=== PATIENT | female | born 1990 | race Caucasian/White ===

== ENCOUNTER 2016-09-12 10:49 | Emergency (ER) | payer SELFPAY ==
[~2016-09-12] VITALS: Ht 177.8 cm; Wt 100.7 kg
[~2016-09-12 10:49] MED LIST: PAXI30TA11 PO; TRAZ50TA4 PO
[2016-09-12 11:01] VITALS: BP 128/66
[2016-09-12] MEDS ORDERED: GUAIDM5UD PO (11:13)
== END 2016-09-12 11:20 | disposition home or self-care (01) ==
LOC: M ED 11:17
DX: J00 Acute nasopharyngitis [common cold] (principal); L70.9 Acne, unspecified; Z20.9 Contact with and (suspected) exposure to unspecified communicable disease; F17.200 Nicotine dependence, unspecified, uncomplicated; J30.2 Other seasonal allergic rhinitis

== ENCOUNTER → 2016-09-21 | Outpatient (CLI) | payer SELFPAY ==
[~2016-09-21] MED LIST changes: +GUAIDM5UD PO; +ISOVUE-370 76% 100ML VIAL (Q9967) As Ordered ONE
--- NOTE | 2016-09-21 13:39 | REP ---
Clinical: Infertility. Technique: Hysterosalpingogram performed in conjunction with STUDENT ACCOUNTS COORDINATOR. Findings: Real time fluoroscopic evaluation demonstrates normal contour and appearance to the uterus and intramural portions of the bilateral fallopian tubes. There is considerable distension and dilatation to the ampullary portions of the bilateral fallopian tubes with complete obstruction at the fimbria and no evidence for spillage / extravasation. Total fluoroscopic time 1 minute 31 seconds. Impression: Occlusion of the bilateral fallopian tubes with moderate to significant bilateral hydrosalpinx. Normal appearance and contour to the uterus. Signed by Abiodun Shook MD 09/21/2016 01:30 P
== END ==
LOC: M RADPRO 11:47
PROVIDERS: ATTEND Obstetrics & Gynecology
DX: N97.8 Female infertility of other origin (principal)
CPT/HCPCS: 58340; 74740; Q9967

== ENCOUNTER → 2016-12-11 | Day surgery (SDC) | payer OTHER ==
[~2016-12-11] VITALS: Ht 177.8 cm; Wt 99.8 kg
[~2016-12-11] MED LIST changes: +BUPIVACAINE HCL 0.25% 30 ML VIAL As Ordered ONE; +DESFLURANE 240 ML INHALANT As Ordered ONE; +GLYCOPYRROLATE INJ 0.2 MG/ML 2 ML VIAL As Ordered ONE; +HYDROmorphone HCL 1 MG/ML SYRINGE (J1170) IV PRN; +HYDROmorphone HCL 2 MG/ML 1ML VIAL (J1170) As Ordered ONE; +IBUP600T26 PO; -ISOVUE-370 76% 100ML VIAL (Q9967) As Ordered ONE; +KETOROLAC 60 MG/2 ML VIAL (J1885) As Ordered ONE; +LIDOCAINE 2% INJ 100 MG/5 ML SDV (FOR ANES.) As Ordered ONE; +LR 1,000 ML IV ONE; +LR 1,000 ML IV SCH; +METHYLENE BLUE 0.5% (5MG/ML) 10 ML AMP (PROVAYBLUE)(Q9968 PER 1MG) As Ordered ONE; +MIDAZOLAM INJ 2 MG/2 ML VIAL (J2250) As Ordered ONE; +NEOSTIGMINE 1MG/ML 5 ML SYRINGE (J2710) As Ordered ONE; +ONDANSETRON 4MG/2ML VIAL (J2405) As Ordered ONE; +ONDANSETRON 4MG/2ML VIAL (J2405) IV PRN; +OXYC1TAB23 PO; +PROPOFOL 200 MG/20 ML VIAL As Ordered ONE; +ROCURONIUM BROMIDE 50 MG/5 ML VIAL As Ordered ONE; +ZOFR4TAB3 PO; +dexameTHASONE 4 MG/ML 1ML VIAL (J1100) As Ordered ONE; +diphenhydrAMINE INJ 50MG/ML VIAL (J1200) IV ONE; +fentaNYL 100 MCG/2 ML INJECTION (J3010) As Ordered ONE
[2016-12-11 07:28] LABS: MEAN CORPUSCULAR HEMOGLOBIN 30.3 pg (27.0-33.0); MEAN CORPUSCULAR HGB CONC 33.1 g/dl (32.0-36.5); MEAN CORPUSCULAR VOLUME 91.6 fl (80.0-96.0); RED CELL DISTRIBUTION WIDTH 14.6 % (11.5-14.5); WHITE BLOOD COUNT 6.6 K/mm3 (4.0-10.0)
[2016-12-11 07:46] LABS: CONTROL LINE HCG INT CTR LINE PRESENT
[2016-12-11] MEDS: fentaNYL 100 MCG/2 ML INJECTION (J3010) IV PRN ×2 (11:01→11:16)
[2016-12-11] MEDS: PERCOCET 5MG/325MG TAB PO PRN ×2 (11:02→12:31)
[2016-12-11 12:50] VITALS: BP 110/53
--- NOTE | 2016-12-11 23:24 | RO ---
DATE OF PROCEDURE: 12/11/2016 PREOPERATIVE DIAGNOSIS: 1. Secondary infertility, tubal factor. 2. Bilateral hydrosalpinx. POSTOPERATIVE DIAGNOSIS: 1. Secondary infertility, tubal factor. 2. Bilateral hydrosalpinx. PROCEDURES PERFORMED: 1. Diagnostic hysteroscopy. 2. Diagnostic laparoscopy with chromopertubation. 3. Laparoscopic lysis of adhesions. 4. Laparoscopic bilateral salpingectomy. SURGEON: Dr. Ganga Sun BLOCKER AND SEWER: None. ANESTHESIA: general endotracheal. SPECIMENS SENT TO PATHOLOGY: Bilateral fallopian tubes. ESTIMATED BLOOD LOSS: 5 mL. FLUID REPLACED: 1600 mL. DRANS: Fink catheter. URINE OUTPUT: 1000 mL. COMPLICATIONS: None. PREOPERATIVE ANTIBIOTICS: None indicated. INDICATION: The patient is a 26-year-old 2, para 2 with a history of secondary infertility. A hysterosalpingogram in the recent past revealed bilateral hydrosalpinx. The patient is preparing for in vitro fertilization. INTRAOPERATIVE FINDINGS: Hysteroscopic findings: Normal intrauterine cavity without any intracavitary or space-occupying masses. Normal shape and contour to the cavity. Laparoscopic findings: Normal serosal contour to the uterus. The uterus is normal size and shape. Bilateral hydrosalpinx was noted with chromopertubation. There was no spillage from either tube. Bilateral hydrosalpinx was confirmed. Adnexal adhesions were present on both the right and left side, especially on the right. There was significant adhesive disease around the right ovary that was reduced. There was blunting of both fimbriated ends of the fallopian tubes. DESCRIPTION OF PROCEDURE: The patient was counseled and consented on the risks, benefits, indications and alternatives of the procedures. Informed consent was obtained. She was taken to the operating room with an IV running. She was placed on the operating table in dorsal supine position where general anesthesia was administered and then the airway secured without any difficulty. She was placed in the low lithotomy position. She was prepared and draped in the normal sterile fashion. A time-out was performed per protocol. A Fink catheter was placed under sterile conditions. A sterile speculum was placed with good visualization of the cervix. The anterior lip of the cervix was grasped with a single-tooth tenaculum and downward traction was applied. The cervix was then sequentially dilated with Pravin dilators up to a #16. The uterus was sounded to approximately 8.5 cm. The hysteroscope was placed transcervically into the intrauterine cavity, and the intrauterine cavity was distended. The findings are noted above. Essentially this was a normal hysteroscopy with no abnormal findings or space-occupying defects within the uterus. The hysteroscope was removed. The ZUMI uterine manipulator was then placed in typical fashion. The sterile speculum was removed. A glove switch was performed and attention was then turned to the abdomen. An 8 mm umbilical incision was made after injection of 0.25% Marcaine through this 8 mm incision, the Veress needle was placed into the intraperitoneal cavity. Intraperitoneal placement was confirmed with ease of flow of normal saline, no return on aspiration and a positive drop test. The abdomen was insufflated. The opening pressure was 8 mmHg. The abdomen was insufflated with 2 liters of gas. The Veress needle was removed. A size 5 mm XCEL laparoscopic trocar was placed into the intraperitoneal cavity. No incidental bleeding or injury was noted. Intraperitoneal placement was confirmed, and the patient was placed in Trendelenburg position. Two additional laparoscopic port sites were placed on the left side, each through 5 mm incisions, XCEL laparoscopic trocars were placed through these incisions under direct laparoscopic visualization without any difficulty. Chromopertubation was performed with the findings noted above. Given the lack of any spillage and the evidence of bilateral hydrosalpinx, the decision was made to proceed with bilateral salpingectomy in preparation for the patient undergoing in vitro fertilization. The right adnexal adhesions were reduced with a 5 mm LigaSure, the freed right fallopian tube was then elevated. The underlying mesosalpinx, broad ligament was sequentially clamped, coagulated and transected with the 5 mm LigaSure device until the level of the uterus was reached. At the level of the uterus, the right fallopian tube was clamped, coagulated and transected, thus amputating the right fallopian tube. In similar fashion, minimal adhesions were reduced on the left side and then the left fallopian tube was grasped at the fimbriated end and elevated. The underlying mesosalpinx, broad ligament were sequentially clamped, coagulated and transected with the LigaSure device at the level of the uterus. The left fallopian tube was clamped, coagulated, transected, thus amputating the left fallopian tube. Both the left and right fallopian tube were placed in the anterior cul-de-sac. The 8 mm umbilical incision was extended to 11 mm to accommodate a size 11 mm XCEL trocar. This trocar was placed under direct laparoscopic visualization. Through this cannula, the Endo Catch bag was placed. The specimens were placed in Endo Catch bag, and the specimens were removed in typical fashion. After removal, the 11 mm XCEL trocar was replaced. Inspection of the pelvis was performed. The pelvis was noted be completely hemostatic. Joan was placed over the operative sites to ensure hemostasis. The gas was then released from the abdomen, no bleeding was noted, upon release of gas from the abdomen and each cannula was removed with ease. At the umbilical incision, the fascia was closed with #0 Vicryl with a [id number] stitch. Each skin incision was then closed with #4-0 Monocryl in a subcuticular fashion. The skin incisions were reinforced with Dermabond. Attention was then turned back to the vagina. The ZUMI uterine manipulator was removed in typical fashion. A sterile speculum was placed into the vagina. The tenaculum sites were noted to be hemostatic. All instruments were removed from the vagina. Sponge, lap, needle and instrument counts were correct times two, and the patient tolerated the entire procedure very well. She was transferred to the post-anesthesia care unit (PACU) in good and stable condition. MARCO
== END | disposition home or self-care (01) ==
LOC: M SDC 06:56
PROVIDERS: ATTEND Obstetrics & Gynecology
DX: N97.1 Female infertility of tubal origin (principal); N70.11 Chronic salpingitis; N73.6 Female pelvic peritoneal adhesions (postinfective); K21.9 Gastro-esophageal reflux disease without esophagitis; J45.909 Unspecified asthma, uncomplicated; F17.210 Nicotine dependence, cigarettes, uncomplicated

== ENCOUNTER 2017-03-18 19:04 | Emergency (ER) | payer OTHER, SELFPAY ==
[~2017-03-18] VITALS: Ht 177.8 cm; Wt 97.6 kg
[~2017-03-18 19:04] MED LIST changes: -BUPIVACAINE HCL 0.25% 30 ML VIAL As Ordered ONE; -DESFLURANE 240 ML INHALANT As Ordered ONE; -GLYCOPYRROLATE INJ 0.2 MG/ML 2 ML VIAL As Ordered ONE; -HYDROmorphone HCL 1 MG/ML SYRINGE (J1170) IV PRN; -HYDROmorphone HCL 2 MG/ML 1ML VIAL (J1170) As Ordered ONE; +IBUP-1022 PO; -IBUP600T26 PO; -KETOROLAC 60 MG/2 ML VIAL (J1885) As Ordered ONE; -LIDOCAINE 2% INJ 100 MG/5 ML SDV (FOR ANES.) As Ordered ONE; -LR 1,000 ML IV ONE; -LR 1,000 ML IV SCH; -METHYLENE BLUE 0.5% (5MG/ML) 10 ML AMP (PROVAYBLUE)(Q9968 PER 1MG) As Ordered ONE; -MIDAZOLAM INJ 2 MG/2 ML VIAL (J2250) As Ordered ONE; -NEOSTIGMINE 1MG/ML 5 ML SYRINGE (J2710) As Ordered ONE; -ONDANSETRON 4MG/2ML VIAL (J2405) As Ordered ONE; -ONDANSETRON 4MG/2ML VIAL (J2405) IV PRN; -PROPOFOL 200 MG/20 ML VIAL As Ordered ONE; -ROCURONIUM BROMIDE 50 MG/5 ML VIAL As Ordered ONE; +TRAZ50TA11 PO; -TRAZ50TA4 PO; -dexameTHASONE 4 MG/ML 1ML VIAL (J1100) As Ordered ONE; -diphenhydrAMINE INJ 50MG/ML VIAL (J1200) IV ONE; -fentaNYL 100 MCG/2 ML INJECTION (J3010) As Ordered ONE
[2017-03-18 19:05] VITALS: BP 129/65
[2017-03-18] MEDS ORDERED: TRAM50TA2 PO (20:08)
--- NOTE | 2017-03-19 01:24 | REP ---
Clinical: Trauma. Technique: AP, lateral, bilateral oblique and sunrise views left knee . Findings: Anterior soft tissue swelling and possible effusion cannot be excluded. The osseous structures are intact and there is no evidence for acute fracture or dislocation. No subcutaneous emphysema or radiodense foreign body. Impression: Swelling and possible effusion. No acute fracture or dislocation. Signed by Abiodun Shook MD 03/19/2017 01:16 A
== END 2017-03-18 20:35 | disposition home or self-care (01) ==
LOC: M ED 19:04
DX: S83.412A Sprain of medial collateral ligament of left knee, initial encounter (principal); W19.XXXA Unspecified fall, initial encounter; Y92.89 Other specified places as the place of occurrence of the external cause; Y93.89 Activity, other specified; Y99.0 Civilian activity done for income or pay; J30.9 Allergic rhinitis, unspecified; F17.200 Nicotine dependence, unspecified, uncomplicated

== ENCOUNTER 2017-05-27 19:28 | Emergency (ER) | payer SELFPAY ==
[~2017-05-27] VITALS: Ht 177.8 cm; Wt 93.2 kg
[~2017-05-27 19:28] MED LIST changes: +TRAM50TA2 PO
[2017-05-27 19:29] VITALS: BP 141/75
[2017-05-28] MEDS ORDERED: FLAG500T PO (21:46)
[2017-05-28] MEDS ORDERED: BACT800T5 PO (21:46)
[2017-05-28] MEDS ORDERED: PYRI1TAB5 PO (21:46)
== END 2017-05-27 20:20 | disposition left against medical advice (07) ==
LOC: M ED 19:28
DX: R10.2 Pelvic and perineal pain (principal); Z53.21 Procedure and treatment not carried out due to patient leaving prior to being seen by health care provider

== ENCOUNTER 2017-05-28 17:28 | Emergency (ER) | payer SELFPAY ==
[~2017-05-28] VITALS: Ht 177.8 cm; Wt 93.2 kg
[2017-05-28] MEDS ORDERED: ONDANSETRON 4MG/2ML VIAL (J2405) IV ONE (19:30)
[2017-05-28] MEDS ORDERED: NS 1,000 ML IV ONE (19:30)
[2017-05-28] MEDS ORDERED: MORPHINE 4 MG/ML 1ML SYRINGE IV PRN (19:30)
--- NOTE | 2017-05-28 20:20 | REPUSA ---
Clinical history: Pain. Findings: Real-time transabdominal and transvaginal ultrasound images of the pelvis were obtained. A retroverted uterus is noted, measuring 8.7 x 4.5 x 5.9 cm. The uterus demonstrates normal echotexture and echogenicity. The endometrial stripe measures 12 mm and is within normal limits. The right ovary measures 3.1 x 2.1 x 1.7 cm. The left ovary measures 4.3 x 2.6 x 2.5 cm. There is a complex cyst in the left ovary measuring 2.1 x 1.4 x 2.4 cm. No adnexal masses are seen. Color Doppler flow is seen w ithin both ovaries. There is moderate amount of free fluid in the cul-de-sac. Echogenic material is s een within this fluid. Impression: 1. Complex left ovarian cyst. This is likely a hemorrhagic cyst. 2. Moderate amount of complex fluid in the cul-de-sac, possibly hemorrhagic in nature. 3. The uterus is unremarkable.
[2017-05-28 20:29] LABS: BASO % 0.3 % (0.0-1.0); EOS # 0.3 10^3/uL (0.0-0.50); EOS % 2.6 % (0.0-3.0); IMMATURE GRANULOCYTE % 0.2 % (0-0); LYMPH # 3.1 10^3/uL (1.5-6.5); LYMPH % 31.4 % (24.0-44.0); MEAN CORPUSCULAR HEMOGLOBIN 31.1 pg (27.0-33.0); MEAN CORPUSCULAR VOLUME 91.4 fl (80.0-96.0); MONO # 0.5 10^3/uL (0.0-0.8); MONO % 4.9 % (0.0-5.0); NEUTROPHILS % 60.6 % (36.0-66.0); PLATELET COUNT, AUTOMATED 261 10^3/uL (150-450); RED CELL DISTRIBUTION WIDTH 13.8 % (11.5-14.5)
[2017-05-28 20:57] LABS: ALBUMIN 3.7 GM/DL (3.2-5.2); ALBUMIN/GLOBULIN RATIO 1.09 (1.00-1.93); ALKALINE PHOSPHATASE 86 U/L (45-117); ALT/SGPT 34 U/L (12-78); ANION GAP 8 MEQ/L (8-16); AST/SGOT 11 U/L (7-37); BILIRUBIN,DIRECT < 0.1 MG/DL (0.0-0.2); BILIRUBIN,TOTAL 0.2 MG/DL (0.2-1.0); BLOOD UREA NITROGEN 7 MG/DL (7-18); CALCIUM LEVEL 9.1 MG/DL (8.5-10.1); CARBON DIOXIDE LEVEL 25 MEQ/L (21-32); CHLORIDE LEVEL 109 MEQ/L (98-107); GLOMERULAR FILTRATION RATE > 60.0 (>60); GLUCOSE, FASTING 100 MG/DL (70-105); POTASSIUM SERUM 4.1 MEQ/L (3.5-5.1); SODIUM LEVEL 142 MEQ/L (136-145); TOTAL PROTEIN 7.1 GM/DL (6.4-8.2)
[2017-05-28] MEDS ORDERED: BACTRIM 160MG/800MG DS TAB PO ONE (21:45)
[2017-05-28] MEDS ORDERED: metroNIDAZOLE (FLAGYL) 500 MG TAB PO ONE (21:45)
[2017-05-28] MEDS ORDERED: PHENAZOPYRIDINE 100 MG TAB PO ONE (21:45)
[2017-05-28] MEDS ORDERED: PYRI1TAB5 PO (21:46)
[2017-05-28] MEDS ORDERED: FLAG500T PO (21:46)
[2017-05-28] MEDS ORDERED: BACT800T5 PO (21:46)
[2017-05-28 22:00] VITALS: BP 120/70
== END 2017-05-28 22:08 | disposition home or self-care (01) ==
LOC: M ED 17:28
DX: N76.0 Acute vaginitis (principal); N83.202 Unspecified ovarian cyst, left side; N30.90 Cystitis, unspecified without hematuria; J45.909 Unspecified asthma, uncomplicated; F17.210 Nicotine dependence, cigarettes, uncomplicated
CPT/HCPCS: 76830; 76856; 80048; 80076; 81001; 83690; 85025; 87210; 87491; 87591; 93976; 96374; 96375; 99284; J2405

== ENCOUNTER 2017-09-20 16:50 | Emergency (ER) | payer MEDICAID, SELFPAY | END 2017-09-20 19:00 | disposition home or self-care (01) | LOC: M ED 16:50 | DX: S93.602A Unspecified sprain of left foot, initial encounter (principal); X50.1XXA Overexertion from prolonged static or awkward postures, initial encounter; Y92.098 Other place in other non-institutional residence as the place of occurrence of the external cause; J30.2 Other seasonal allergic rhinitis | CPT/HCPCS: 73610 ==

== ENCOUNTER 2017-10-15 11:15 | Emergency (ER) | payer MEDICAID, SELFPAY ==
[2017-10-15] MEDS: AZITHROMYCIN 250 MG TAB PO ×2 (12:13)
[2017-10-15 14:08] LABS: HEPATITIS B SURFACE ANTIBODY POSITIVE (POSITIVE)
[2017-10-15 14:16] LABS: CHLAMYDIA DNA AMPLIFICATION NEGATIVE (NEGATIVE); GC DNA AMPLIFICATION NEGATIVE (NEGATIVE)
[2017-10-15 14:19] LABS: HEPATITIS B SURFACE ANTIGEN NEGATIVE (NEGATIVE)
[2017-10-15 14:47] LABS: HIV 1&2 SCREEN CENTAUR NEGATIVE (NEGATIVE)
[2017-10-15 14:49] LABS: HEPATITIS C VIRUS ABY INDEX > 11.0 INDEX (<0.8)
== END 2017-10-15 12:34 | disposition home or self-care (01) ==
LOC: M ED 11:15
DX: Z20.2 Contact with and (suspected) exposure to infections with a predominantly sexual mode of transmission (principal); Z91.048 Other nonmedicinal substance allergy status
CPT/HCPCS: 86706

== ENCOUNTER 2017-11-04 19:22 | Emergency (ER) | payer MEDICAID ==
[2017-11-04] MEDS: MORPHINE 4 MG/ML 1ML VIAL/SYRINGE (J2270) IM (20:03)
[2017-11-04] MEDS: LORazepam 2 MG/ML VIAL (J2060) IM (20:03)
[2017-11-04] MEDS: HYDROmorphone HCL 1 MG/ML SYRINGE (J1170) IM (21:13)
[2017-11-04] MEDS: MORPHINE 4 MG/ML 1ML VIAL/SYRINGE (J2270) IV (22:29)
[2017-11-04] MEDS: METHOCARBAMOL 1,000 MG/10 ML VIAL (J2800) IV (22:29)
[2017-11-04] MEDS: OXYCODONE/APAP 5MG/325MG(BULK FOR ED) 1 TABLET PO (23:55)
== END 2017-11-05 00:03 | disposition home or self-care (01) ==
LOC: M ED 11-05 00:03
DX: M62.830 Muscle spasm of back (principal); J30.89 Other allergic rhinitis; F17.210 Nicotine dependence, cigarettes, uncomplicated
CPT/HCPCS: J1170

== ENCOUNTER → 2017-11-19 | Outpatient (CLI) | payer MEDICAID ==
[2017-11-19 09:57] LABS: BASO # 0.1 10^3/uL (0.0-0.2); BASO % 0.8 % (0.0-1.0); EOS # 0.2 10^3/uL (0.0-0.50); EOS % 2.9 % (0.0-3.0); HEMATOCRIT 40.5 % (36.0-47.0); HEMOGLOBIN 13.4 g/dl (12.0-15.5); IMMATURE GRANULOCYTE % 0.2 % (0-3.0); LYMPH # 1.8 10^3/uL (1.5-6.5); MEAN CORPUSCULAR HEMOGLOBIN 30.4 pg (27.0-33.0); MEAN CORPUSCULAR HGB CONC 33.1 g/dl (32.0-36.5); MEAN CORPUSCULAR VOLUME 91.8 fl (80.0-96.0); MONO # 0.4 10^3/uL (0.0-0.8); MONO % 5.9 % (0.0-5.0); NEUTROPHILS # 3.6 10^3/uL (1.8-7.7); NEUTROPHILS % 60.2 % (36.0-66.0); PLATELET COUNT, AUTOMATED 236 10^3/uL (150-450); RED BLOOD COUNT 4.41 10^6/uL (4.00-5.40); RED CELL DISTRIBUTION WIDTH 13.9 % (11.5-14.5)
[2017-11-19 10:08] LABS: APPEARANCE, URINE CLOUDY (CLEAR); BACTERIA, URINE AUTO NEGATIVE (NEGATIVE); BILIRUBIN, URINE AUTO NEGATIVE (NEGATIVE); BLOOD, URINE BLOOD 3+ (NEGATIVE); COLOR, URINE YELLOW (YELLOW); GLUCOSE, URINE (UA) AUTO NEGATIVE (NEGATIVE); KETONE, URINE AUTO NEGATIVE (NEGATIVE); LEUKOCYTE ESTERASE, URINE AUTO NEGATIVE (NEGATIVE); NITRITE, URINE AUTO NEGATIVE (NEGATIVE); PROTEIN, URINE AUTO 1+ mg/dL (NEGATIVE); RBC, URINE AUTO TNTC /HPF (0-3); SPECIFIC GRAVITY URINE AUTO 1.017 (1.002-1.035); SQUAMOUS EPITHELIAL CELL UR AU 0 /HPF (0-6); UROBILINOGEN, URINE AUTO 0.2 mg/dL (0.0-2.0); WBC, URINE AUTO 16 /HPF (0-3)
[2017-11-19 10:27] LABS: ALBUMIN 3.7 GM/DL (3.2-5.2); ALKALINE PHOSPHATASE 87 U/L (45-117); ALT/SGPT 18 U/L (12-78); ANION GAP 5 MEQ/L (8-16); AST/SGOT 9 U/L (7-37); BILIRUBIN,TOTAL 0.3 MG/DL (0.2-1.0); BLOOD UREA NITROGEN 10 MG/DL (7-18); CALCIUM LEVEL 8.6 MG/DL (8.5-10.1); CARBON DIOXIDE LEVEL 27 MEQ/L (21-32); CHLORIDE LEVEL 109 MEQ/L (98-107); CHOLESTEROL LEVEL 142 MG/DL (<200); CHOLESTEROL RISK RATIO 3.641 (<5); CREATININE FOR GFR 0.75 MG/DL (0.55-1.30); GLOMERULAR FILTRATION RATE > 60.0 (>60); GLUCOSE, FASTING 88 MG/DL (70-100); HDL CHOLESTEROL 39 MG/DL (>40); LDL CHOLESTEROL 90.6 MG/DL (<100); NON-HDL-C 103 MG/DL; POTASSIUM SERUM 4.6 MEQ/L (3.5-5.1); SODIUM LEVEL 141 MEQ/L (136-145); TOTAL PROTEIN 7.4 GM/DL (6.4-8.2); TRIGLYCERIDES LEVEL 62 MG/DL (<150)
[2017-11-19 10:28] LABS: TOTAL 25(OH) VITAMIN D 19.8 NG/ML (30.0-100.0)
[2017-11-19 11:49] LABS: ESTIMATED AVERAGE GLUCOSE 105 MG/DL (60-110); HEMOGLOBIN A1c 5.3 %
== END ==
LOC: M LAB 08:47
DX: Z00.00 Encounter for general adult medical examination without abnormal findings (principal); M54.9 Dorsalgia, unspecified
CPT/HCPCS: 72082

== ENCOUNTER → 2017-11-28 | Outpatient (REF) | payer MEDICAID ==
[2017-11-29 04:42] LABS: APPEARANCE, URINE HAZY (CLEAR); BACTERIA, URINE AUTO 1+ (NEGATIVE); BILIRUBIN, URINE AUTO NEGATIVE (NEGATIVE); BLOOD, URINE BLOOD 1+ (NEGATIVE); COLOR, URINE YELLOW (YELLOW); GLUCOSE, URINE (UA) AUTO NEGATIVE (NEGATIVE); KETONE, URINE AUTO NEGATIVE (NEGATIVE); LEUKOCYTE ESTERASE, URINE AUTO NEGATIVE (NEGATIVE); MUCUS, URINE SMALL (NEGATIVE); NITRITE, URINE AUTO NEGATIVE (NEGATIVE); PROTEIN, URINE AUTO NEGATIVE (NEGATIVE); RBC, URINE AUTO 3 /HPF (0-3); SPECIFIC GRAVITY URINE AUTO 1.024 (1.002-1.035); SQUAMOUS EPITHELIAL CELL UR AU 11 /HPF (0-6); UROBILINOGEN, URINE AUTO 0.2 mg/dL (0.0-2.0); WBC, URINE AUTO 1 /HPF (0-3)
== END ==
LOC: M LAB REF 12:26
DX: R82.90 Unspecified abnormal findings in urine (principal)

== ENCOUNTER → 2017-12-20 | Outpatient (CLI) | payer MEDICAID ==
[2017-12-20 12:44] LABS: APPEARANCE, URINE HAZY (CLEAR); BACTERIA, URINE AUTO NEGATIVE (NEGATIVE); BILIRUBIN, URINE AUTO NEGATIVE (NEGATIVE); BLOOD, URINE BLOOD 1+ (NEGATIVE); COLOR, URINE YELLOW (YELLOW); GLUCOSE, URINE (UA) AUTO NEGATIVE (NEGATIVE); KETONE, URINE AUTO NEGATIVE (NEGATIVE); LEUKOCYTE ESTERASE, URINE AUTO NEGATIVE (NEGATIVE); MUCUS, URINE SMALL (NEGATIVE); NITRITE, URINE AUTO NEGATIVE (NEGATIVE); PROTEIN, URINE AUTO NEGATIVE (NEGATIVE); RBC, URINE AUTO 5 /HPF (0-3); SPECIFIC GRAVITY URINE AUTO 1.021 (1.002-1.035); SQUAMOUS EPITHELIAL CELL UR AU 6 /HPF (0-6); UROBILINOGEN, URINE AUTO 0.2 mg/dL (0.0-2.0); WBC, URINE AUTO 2 /HPF (0-3)
== END ==
LOC: M LAB 12:01
DX: R82.90 Unspecified abnormal findings in urine (principal)
CPT/HCPCS: 36415

== ENCOUNTER → 2018-04-19 | Outpatient (REF) | payer OTHER, MEDICAID ==
[2018-04-19 13:19] LABS: HEMATOCRIT 41.8 % (36.0-47.0); HEMOGLOBIN 13.5 g/dl (12.0-15.5); MEAN CORPUSCULAR HGB CONC 32.3 g/dl (32.0-36.5); MEAN CORPUSCULAR VOLUME 89.7 fl (80.0-96.0); PLATELET COUNT, AUTOMATED 241 10^3/uL (150-450); RED BLOOD COUNT 4.66 10^6/uL (4.00-5.40); RED CELL DISTRIBUTION WIDTH 15.3 % (11.5-14.5); WHITE BLOOD COUNT 7.6 10^3/uL (4.0-10.0)
[2018-04-19 14:29] LABS: FREE T4 1.01 NG/DL (0.76-1.46)
[2018-04-19 19:36] LABS: LUTEINIZING HORMONE 4.4 mIU/mL
[2018-04-19 19:37] LABS: FOLLICLE STIMULATING HORMONE 5.4 mIU/mL
[2018-04-23 00:07] LABS: F8 ACTIVITY FOR F8 PANEL 172 % (57-163); F8 ACTIVITY vWB FOR F8 PANEL 188 % (50-200); F8 ANTIGEN FOR F8 PANEL 198 % (50-200); INTERPRETATION: Note (.)
== END ==
LOC: M LAB REF 13:03
DX: N92.0 Excessive and frequent menstruation with regular cycle (principal)
CPT/HCPCS: 83001

== ENCOUNTER 2018-05-02 10:14 | Emergency (ER) | payer OTHER ==
[2018-05-02] MEDS: MORPHINE 4 MG/ML 1ML VIAL/SYRINGE (J2270) IM (10:53)
[2018-05-02] MEDS: methylPREDNISolone INJ 125 MG/2 ML VIAL (J2930) IM (11:21)
[2018-05-02] MEDS: KETOROLAC 60 MG/2 ML VIAL (J1885) IM (12:00)
== END 2018-05-02 12:33 | disposition home or self-care (01) ==
LOC: M ED 10:14
DX: M54.41 Lumbago with sciatica, right side (principal); F41.9 Anxiety disorder, unspecified; M41.9 Scoliosis, unspecified; M51.9 Unspecified thoracic, thoracolumbar and lumbosacral intervertebral disc disorder; F33.9 Major depressive disorder, recurrent, unspecified; J30.2 Other seasonal allergic rhinitis; F17.210 Nicotine dependence, cigarettes, uncomplicated
CPT/HCPCS: J2270

== ENCOUNTER 2018-06-04 11:09 | Emergency (ER) | payer OTHER | END 2018-06-04 12:20 | disposition left against medical advice (07) | LOC: M ED 11:09 | DX: M54.9 Dorsalgia, unspecified (principal); Z53.21 Procedure and treatment not carried out due to patient leaving prior to being seen by health care provider ==

== ENCOUNTER 2018-06-04 18:37 | Emergency (ER) | payer OTHER | END 2018-06-04 21:00 | disposition left against medical advice (07) | LOC: M ED 18:37 | DX: M54.9 Dorsalgia, unspecified (principal); Z53.21 Procedure and treatment not carried out due to patient leaving prior to being seen by health care provider ==

== ENCOUNTER 2018-07-05 09:42 | Emergency (ER) | payer OTHER ==
[~2018-07-05] VITALS: Ht 177.8 cm; Wt 100.0 kg
[~2018-07-05 09:42] MED LIST changes: +BACL10TA2 PO; +BACT800T5 PO; +CYCL10TA PO; +FLAG500T PO; +GABA-1171 PO; +IBUP80TA PO; +PRED10TA2 PO; +PYRI1TAB5 PO; +SOMA350T PO; +TRAZ-160 PO; -TRAZ50TA11 PO; +ZITHTAB PO; +ZOFR4TAB14 PO; -ZOFR4TAB3 PO
[2018-07-05] MEDS ORDERED: NS 1,000 ML IV ONE (10:00)
[2018-07-05 10:28] LABS: BASO # 0.1 10^3/uL (0.0-0.2); BASO % 0.7 % (0.0-1.0); EOS # 0.2 10^3/uL (0.0-0.50); EOS % 2.6 % (0.0-3.0); HEMATOCRIT 40.1 % (36.0-47.0); HEMOGLOBIN 13.6 g/dl (12.0-15.5); LYMPH # 1.9 10^3/uL (1.5-6.5); LYMPH % 25.3 % (24.0-44.0); MEAN CORPUSCULAR HEMOGLOBIN 30.7 pg (27.0-33.0); MEAN CORPUSCULAR HGB CONC 33.9 g/dl (32.0-36.5); MEAN CORPUSCULAR VOLUME 90.5 fl (80.0-96.0); MONO # 0.3 10^3/uL (0.0-0.8); MONO % 4.6 % (0.0-5.0); NEUTROPHILS # 4.9 10^3/uL (1.8-7.7); NEUTROPHILS % 66.4 % (36.0-66.0); PLATELET COUNT, AUTOMATED 216 10^3/uL (150-450); RED BLOOD COUNT 4.43 10^6/uL (4.00-5.40); WHITE BLOOD COUNT 7.4 10^3/uL (4.0-10.0)
--- NOTE | 2018-07-05 10:56 | REP ---
Chest x-ray: Two views. History: Abdominal pain. . Comparison study: June 25, 2013 . Findings: The lungs are well inflated and free of infiltrate. The pleural angles are sharp. The heart size is normal. Pulmonary vasculature is not increased. No significant bony abnormality is seen. Impression: Negative chest x-ray. Electronically Signed by Alvin Garcia MD 07/05/2018 10:48 A
[2018-07-05 10:59] LABS: ALBUMIN 3.6 GM/DL (3.2-5.2); ALT/SGPT 17 U/L (12-78); AMYLASE 41 U/L (25-115); BILIRUBIN,DIRECT < 0.1 MG/DL (0.0-0.2); BILIRUBIN,TOTAL 0.3 MG/DL (0.2-1.0); BLOOD UREA NITROGEN 9 MG/DL (7-18); CALCIUM LEVEL 8.7 MG/DL (8.5-10.1); CARBON DIOXIDE LEVEL 21 MEQ/L (21-32); CHLORIDE LEVEL 109 MEQ/L (98-107); CK-MB VALUE MASS < 1.0 NG/ML (<3.6); CPK CREATINE PHOSPHOKINASE 90 U/L (26-192); CREATININE FOR GFR 0.67 MG/DL (0.55-1.30); GLOMERULAR FILTRATION RATE > 60.0 (>60); GLUCOSE, FASTING 82 MG/DL (70-100); LIPASE 80 U/L (73-393); MB/CK RELATIVE INDEX 1.11 (< OR =4); POTASSIUM SERUM 4.2 MEQ/L (3.5-5.1); SODIUM LEVEL 142 MEQ/L (136-145); TROPONIN I < 0.02 NG/ML (< 0.10)
[2018-07-05 11:26] LABS: INFLUENZA A AMPLIFICATION NEGATIVE (NEGATIVE); INFLUENZA B AMPLIFICATION NEGATIVE (NEGATIVE)
[2018-07-05] MEDS ORDERED: ONDANSETRON 4MG/2ML VIAL (J2405) IV ONE (11:30)
[2018-07-05] MEDS ORDERED: GI COCKTAIL 50ML BTL(HYOSCYAMINE/MAALOX/LIDOCAINE VISCOUS)(1:3:1) PO ONE (11:30)
[2018-07-05] MEDS ORDERED: IBUPROFEN 800 MG TAB PO ONE (11:45)
[2018-07-05 13:21] LABS: CK-MB VALUE MASS < 1.0 NG/ML (<3.6); CPK CREATINE PHOSPHOKINASE 75 U/L (26-192); MB/CK RELATIVE INDEX 1.33 (< OR =4); TROPONIN I < 0.02 NG/ML (< 0.10)
[2018-07-05] MEDS ORDERED: ONDA4TAB6 PO (13:41)
[2018-07-05] MEDS ORDERED: IBUP80TA PO (13:42)
[2018-07-05 13:44] VITALS: BP 98/54
--- NOTE | 2018-07-05 17:10 | ECGEPIP ---
Stationary ECG Study [facility] - ED Test Date: 2018-07-05 Pat Name: RAVI LAGOS Department: Room: - Gender: F Non Linear Editor: rose marie : 1990 Requested By: AUGUSTO HARLEY Order Number: [id number] Reading MD: Imelda Francis Measurements Intervals [place] Rate: 77 P: 27 MT: 136 QRS: 19 QRSD: 90 T: 32 QT: 361 QTc: 410 Interpretive Statements SINUS RHYTHM SIMILAR 08/31/14 Electronically Signed On 07-05-2018 17:10:09 EST by Imelda Francis
== END 2018-07-05 13:55 | disposition home or self-care (01) ==
LOC: M ED 09:42
DX: R07.9 Chest pain, unspecified (principal); B34.9 Viral infection, unspecified; Z82.49 Family history of ischemic heart disease and other diseases of the circulatory system; F17.210 Nicotine dependence, cigarettes, uncomplicated
CPT/HCPCS: 71046; 80048; 80076; 81001; 81025; 82150; 82550; 82553; 83690; 85025; 87502; 87880; 93005; 96361; 96374; 99284; J2405

== ENCOUNTER 2018-07-16 17:52 | Emergency (ER) | payer OTHER ==
[~2018-07-16] VITALS: Ht 177.8 cm; Wt 100.0 kg
[2018-07-16 17:52] VITALS: BP 119/67
[~2018-07-16 17:52] MED LIST changes: +ONDA4TAB6 PO
== END 2018-07-16 19:21 | disposition home or self-care (01) ==
LOC: M ED 17:52
DX: M54.5 Low back pain (principal); G89.29 Other chronic pain; F41.9 Anxiety disorder, unspecified; F17.210 Nicotine dependence, cigarettes, uncomplicated; J30.2 Other seasonal allergic rhinitis

== ENCOUNTER → 2018-09-05 | Outpatient (CLI) | payer OTHER ==
--- NOTE | 2018-09-05 11:28 | REP ---
Partial lumbar spine series: Three views. History: Lower back and coccyx pain after fall. Comparison scoliosis radiographs November 19, 2017. Findings: No sacral or coccygeal fracture or displacement is seen on lateral view. Lumbar vertebral body heights are preserved. There is mild discogenic spurring anteriorly at L2-3 and slight disc space narrowing is seen at L4-5. Pedicles and posterior elements are intact. No sacral fracture is seen on the frontal view. Psoas margins are symmetric. Impression: Mild degenerative disc changes in the lumbar spine. No traumatic abnormality noted. Electronically Signed by Alvin Garcia MD 09/05/2018 11:30 A
== END ==
LOC: M RAD 10:35
PROVIDERS: ATTEND Nurse Practitioner Family
DX: M47.817 Spondylosis without myelopathy or radiculopathy, lumbosacral region (principal)

== ENCOUNTER → 2018-09-10 | Outpatient (REF) | payer OTHER, MEDICAID ==
[2018-09-10 13:36] LABS: AMORPHOUS SEDIMENT SMALL (NEGATIVE); APPEARANCE, URINE CLOUDY (CLEAR); BACTERIA, URINE AUTO NEGATIVE (NEGATIVE); BILIRUBIN, URINE AUTO NEGATIVE (NEGATIVE); BLOOD, URINE BLOOD 1+ (NEGATIVE); COLOR, URINE YELLOW (YELLOW); GLUCOSE, URINE (UA) AUTO NEGATIVE (NEGATIVE); KETONE, URINE AUTO NEGATIVE (NEGATIVE); LEUKOCYTE ESTERASE, URINE AUTO NEGATIVE (NEGATIVE); MUCUS, URINE SMALL (NEGATIVE); NITRITE, URINE AUTO NEGATIVE (NEGATIVE); PROTEIN, URINE AUTO NEGATIVE (NEGATIVE); RBC, URINE AUTO 5 /HPF (0-3); SPECIFIC GRAVITY URINE AUTO 1.028 (1.002-1.035); SQUAMOUS EPITHELIAL CELL UR AU 24 /HPF (0-6); UROBILINOGEN, URINE AUTO 0.2 mg/dL (0.0-2.0); WBC, URINE AUTO 2 /HPF (0-3)
[2018-09-10 13:40] LABS: BASO # 0.1 10^3/uL (0.0-0.2); BASO % 0.4 % (0.0-1.0); EOS # 0.1 10^3/uL (0.0-0.50); EOS % 0.8 % (0.0-3.0); HEMATOCRIT 43.1 % (36.0-47.0); HEMOGLOBIN 14.4 g/dl (12.0-15.5); LYMPH # 3.8 10^3/uL (1.5-6.5); LYMPH % 31.9 % (24.0-44.0); MEAN CORPUSCULAR HEMOGLOBIN 31.7 pg (27.0-33.0); MEAN CORPUSCULAR HGB CONC 33.4 g/dl (32.0-36.5); MEAN CORPUSCULAR VOLUME 94.9 fl (80.0-96.0); MONO # 0.4 10^3/uL (0.0-0.8); MONO % 3.6 % (0.0-5.0); NEUTROPHILS # 7.6 10^3/uL (1.8-7.7); PLATELET COUNT, AUTOMATED 247 10^3/uL (150-450); RED BLOOD COUNT 4.54 10^6/uL (4.00-5.40)
[2018-09-10 14:14] LABS: ALBUMIN 3.8 GM/DL (3.2-5.2); ALT/SGPT 16 U/L (12-78); BILIRUBIN,TOTAL 0.3 MG/DL (0.2-1.0); BLOOD UREA NITROGEN 11 MG/DL (7-18); CALCIUM LEVEL 8.6 MG/DL (8.5-10.1); CARBON DIOXIDE LEVEL 27 MEQ/L (21-32); CHLORIDE LEVEL 109 MEQ/L (98-107); CHOLESTEROL LEVEL 161 MG/DL (<200); CHOLESTEROL RISK RATIO 4.236 (<5); CREATININE FOR GFR 0.75 MG/DL (0.55-1.30); FREE T4 1.13 NG/DL (0.76-1.46); GLOMERULAR FILTRATION RATE > 60.0 (>60); GLUCOSE, FASTING 78 MG/DL (70-100); HDL CHOLESTEROL 38 MG/DL (>40); LDL CHOLESTEROL 106 MG/DL (<100); NON-HDL-C 123 MG/DL; POTASSIUM SERUM 3.8 MEQ/L (3.5-5.1); SODIUM LEVEL 140 MEQ/L (136-145); TOTAL PROTEIN 7.1 GM/DL (6.4-8.2); TRIGLYCERIDES LEVEL 86 MG/DL (<150)
[2018-09-10 14:17] LABS: TOTAL 25(OH) VITAMIN D 18.3 NG/ML (30.0-100.0)
[2018-09-10 14:36] LABS: HEMOGLOBIN A1c 5.5 %
== END ==
LOC: M LAB REF 12:18
PROVIDERS: ATTEND Family Medicine
DX: E88.81 Metabolic syndrome and other insulin resistance (principal); E66.9 Obesity, unspecified; M54.5 Low back pain

== ENCOUNTER → 2018-11-15 | Outpatient (CLI) | payer OTHER ==
[~2018-11-15] MED LIST changes: +KETO10TAB PO
--- NOTE | 2018-11-15 19:38 | REP ---
LUMBAR SPINE, SEVEN VIEWS: HISTORY: Disc degeneration. There is no acute fracture or subluxation. The L3-4 and L4-5 intervertebral discs are decreased in height consistent with disc degeneration. The facet joints are normal in appearance. IMPRESSION:Degenerative change as described above. Electronically Signed by Den Blankenship MD 11/18/2018 08:25 A
== END ==
LOC: M RAD 11:59
PROVIDERS: ATTEND Physician Assistant
DX: M51.36 Other intervertebral disc degeneration, lumbar region (principal)

== ENCOUNTER → 2018-12-05 | Outpatient (CLI) | payer OTHER ==
[~2018-12-05] MED LIST changes: -TRAZ-160 PO; +TRAZ-252 PO
--- NOTE | 2018-12-06 11:25 | DEXA ---
AP SPINE L1 - L4 1.070 -1.0 -1.0 LT FEMUR TOTAL 1.068 0.5 0.5 LT NECK 1.149 0.8 0.9 RT FEMUR TOTAL 1.059 0.4 0.4 RT NECK 1.165 0.9 1.0 TOTAL BODY TOTAL L1-L2 0.991 -1.5 -1.5 COMMENTS: Normal bone densitometry of the hips. There is low bone density of the spine. FOLLOW-UP: Recommendation for the next bone density exam: 2 years. MARCO
== END ==
LOC: M WHC 06:57
PROVIDERS: ATTEND Physician Assistant
DX: M51.36 Other intervertebral disc degeneration, lumbar region (principal)

== ENCOUNTER → 2018-12-31 | Outpatient (CLI) | payer OTHER ==
[2018-12-31 17:16] LABS: APPEARANCE, URINE CLEAR (CLEAR); BACTERIA, URINE AUTO NEGATIVE (NEGATIVE); BILIRUBIN, URINE AUTO NEGATIVE (NEGATIVE); BLOOD, URINE BLOOD 1+ (NEGATIVE); COLOR, URINE STRAW (YELLOW); GLUCOSE, URINE (UA) AUTO NEGATIVE (NEGATIVE); KETONE, URINE AUTO NEGATIVE (NEGATIVE); LEUKOCYTE ESTERASE, URINE AUTO NEGATIVE (NEGATIVE); MUCUS, URINE SMALL (NEGATIVE); NITRITE, URINE AUTO NEGATIVE (NEGATIVE); PROTEIN, URINE AUTO NEGATIVE (NEGATIVE); RBC, URINE AUTO 0 /HPF (0-3); SPECIFIC GRAVITY URINE AUTO 1.012 (1.002-1.035); SQUAMOUS EPITHELIAL CELL UR AU 1 /HPF (0-6); UROBILINOGEN, URINE AUTO 0.2 mg/dL (0.0-2.0); WBC, URINE AUTO 0 /HPF (0-3)
[2019-01-01 10:04] LABS: RUBELLA IgG QUALITATIVE IMMUNE (IMMUNE)
[2019-01-04 00:09] LABS: HERPES ZOSTER, VARICELLA IgG 1345 index (Immune >165); MUMPS VIRUS IgG ANTIBODY 22.8 AU/mL (Immune >10.9)
== END ==
LOC: M LAB 16:05
PROVIDERS: ATTEND Family Medicine
DX: R35.0 Frequency of micturition (principal); Z23 Encounter for immunization

== ENCOUNTER → 2019-03-04 | Outpatient (REF) | payer OTHER ==
[2019-03-04 20:44] LABS: ALBUMIN 3.9 GM/DL (3.2-5.2); ALT/SGPT 16 U/L (12-78); BILIRUBIN,TOTAL 0.2 MG/DL (0.2-1.0); BLOOD UREA NITROGEN 9 MG/DL (7-18); CALCIUM LEVEL 9.2 MG/DL (8.5-10.1); CARBON DIOXIDE LEVEL 26 MEQ/L (21-32); CHLORIDE LEVEL 108 MEQ/L (98-107); CHOLESTEROL LEVEL 160 MG/DL (<200); CHOLESTEROL RISK RATIO 4.705 (<5); CREATININE FOR GFR 0.73 MG/DL (0.55-1.30); GLOMERULAR FILTRATION RATE > 60.0 (>60); GLUCOSE, FASTING 79 MG/DL (70-100); HDL CHOLESTEROL 34 MG/DL (>40); LDL CHOLESTEROL 105 MG/DL (<100); NON-HDL-C 126 MG/DL; POTASSIUM SERUM 4.1 MEQ/L (3.5-5.1); SODIUM LEVEL 141 MEQ/L (136-145); TOTAL PROTEIN 7.3 GM/DL (6.4-8.2); TRIGLYCERIDES LEVEL 104 MG/DL (<150)
[2019-03-04 20:58] LABS: MALB URINE SIEMENS 62.6 MG/L; MAU/CREAT RATIO 39.1 MCG/MG (0.0-30.0)
[2019-03-04 21:48] LABS: HEMOGLOBIN A1c 5.4 %
== END ==
LOC: M LAB REF 19:22
PROVIDERS: ATTEND Family Medicine
DX: E11.9 Type 2 diabetes mellitus without complications (principal)

== ENCOUNTER 2019-07-07 19:33 | Emergency (ER) | payer BC, OTHER ==
[~2019-07-07] VITALS: Ht 177.8 cm; Wt 102.3 kg
[2019-07-07] MEDS ORDERED: METH4PACK PO (19:44)
[2019-07-07] MEDS ORDERED: LIDOCAINE 5% (LIDODERM) PATCH TD ONE (21:15)
[2019-07-07] MEDS ORDERED: diazePAM 5 MG TAB PO ONE (21:15)
[2019-07-07] MEDS ORDERED: KETOROLAC 30 MG/ML VIAL (J1885) IM ONE (21:15)
[2019-07-07 22:11] VITALS: BP 91/53
[2019-07-08] MEDS ORDERED: **NOTE PATIENT COMMENT** MISC XX SCH (21:00)
== END 2019-07-07 22:12 | disposition home or self-care (01) ==
LOC: M ED 19:33
DX: G89.29 Other chronic pain (principal); M51.24 Other intervertebral disc displacement, thoracic region; M51.34 Other intervertebral disc degeneration, thoracic region; M41.9 Scoliosis, unspecified; K21.9 Gastro-esophageal reflux disease without esophagitis; F41.9 Anxiety disorder, unspecified; F33.9 Major depressive disorder, recurrent, unspecified; F17.210 Nicotine dependence, cigarettes, uncomplicated; J30.2 Other seasonal allergic rhinitis; Z79.899 Other long term (current) drug therapy
CPT/HCPCS: 96372; 99283; J1885

== ENCOUNTER 2019-08-01 17:51 | Emergency (ER) | payer BC, OTHER ==
[~2019-08-01] VITALS: Ht 177.8 cm; Wt 102.8 kg
[~2019-08-01 17:51] MED LIST changes: +METH4PACK PO
[2019-08-01] MEDS ORDERED: OMEP-221 (18:00)
[2019-08-01] MEDS ORDERED: NORCO, ANEXSIA 5/325MG TABLET (HYDROcodone/ACETAMINOPHEN) PO ONE (20:15)
[2019-08-01] MEDS ORDERED: CYCLOBENZAPRINE 10 MG TAB PO ONE (20:15)
[2019-08-01] MEDS ORDERED: IBUPROFEN 600 MG TAB PO ONE (20:15)
[2019-08-01] MEDS ORDERED: CYCL10TA PO (20:58)
[2019-08-01 21:04] VITALS: BP 116/67
== END 2019-08-01 21:06 | disposition home or self-care (01) ==
LOC: M ED 17:51
DX: G89.29 Other chronic pain (principal); M54.5 Low back pain; M62.830 Muscle spasm of back; F17.210 Nicotine dependence, cigarettes, uncomplicated; J30.2 Other seasonal allergic rhinitis; Z79.899 Other long term (current) drug therapy

== ENCOUNTER 2020-05-16 21:25 | Observation (INO) | payer BC, OTHER, SELFPAY ==
[~2020-05-16] VITALS: Ht 177.8 cm; Wt 100.7 kg
[~2020-05-16 21:25] MED LIST changes: +CYCL-707 PO; -CYCL10TA PO; +OMEP-221 PO
[2020-05-16] MEDS ORDERED: NS 1,000 ML IV ONE ×2 (21:45→23:15)
[2020-05-16 21:56] LABS: BASO # 0.1 10^3/uL (0.0-0.2); BASO % 0.5 % (0.0-1.0); EOS # 0.1 10^3/uL (0.0-0.5); EOS % 0.8 % (0.0-3.0); HEMATOCRIT 38.7 % (36.0-47.0); HEMOGLOBIN 12.5 g/dl (12.0-15.5); LYMPH # 2.6 10^3/uL (1.5-5.0); LYMPH % 24.1 % (24.0-44.0); MEAN CORPUSCULAR HEMOGLOBIN 29.3 pg (27.0-33.0); MEAN CORPUSCULAR HGB CONC 32.3 g/dl (32.0-36.5); MEAN CORPUSCULAR VOLUME 90.6 fl (80.0-96.0); MONO # 0.4 10^3/uL (0.0-0.8); MONO % 3.5 % (0.0-5.0); NEUTROPHILS # 7.5 10^3/uL (1.5-8.5); NEUTROPHILS % 70.6 % (36.0-66.0); PLATELET COUNT, AUTOMATED 244 10^3/uL (150-450); RED BLOOD COUNT 4.27 10^6/uL (4.00-5.40); WHITE BLOOD COUNT 10.6 10^3/uL (4.0-10.0)
[2020-05-16 22:26] LABS: HCG, SERUM QUALITATIVE NEGATIVE (NEGATIVE)
[2020-05-16 22:30] LABS: ACETAMINOPHEN LEVEL < 2.0 UG/ML (10.0-30.0); ALBUMIN 3.9 GM/DL (3.2-5.2); ALT/SGPT 14 U/L (12-78); BILIRUBIN,DIRECT < 0.1 MG/DL (0.0-0.2); BILIRUBIN,TOTAL 0.2 MG/DL (0.2-1.0); BLOOD UREA NITROGEN 7 MG/DL (7-18); CALCIUM LEVEL 8.6 MG/DL (8.5-10.1); CARBON DIOXIDE LEVEL 24 MEQ/L (21-32); CHLORIDE LEVEL 105 MEQ/L (98-107); CPK CREATINE PHOSPHOKINASE 174 U/L (26-192); CREATININE FOR GFR 0.78 MG/DL (0.55-1.30); GLOMERULAR FILTRATION RATE > 60.0 (>60); GLUCOSE, FASTING 80 MG/DL (70-100); POTASSIUM SERUM 3.3 MEQ/L (3.5-5.1); SALICYLATE LEVEL 3.1 MG/DL (5.0-30.0); SODIUM LEVEL 137 MEQ/L (136-145); TOTAL PROTEIN 6.9 GM/DL (6.4-8.2)
[2020-05-16 22:31] LABS: ETHYL ALCOHOL (ETHANOL) < 0.003 % (0.000-0.010)
[2020-05-16 22:53] LABS: AMPHETAMINES LEVEL URINE NEGATIVE (NEGATIVE); BARBITURATES URINE NEGATIVE (NEGATIVE); BENZODIAZEPINES URINE NEGATIVE (NEGATIVE); CANNABINOIDS URINE NEGATIVE (NEGATIVE); COCAINE METABOLITE URINE NEGATIVE (NEGATIVE); METHADONE URINE NEGATIVE (NEGATIVE); OPIATES URINE NEGATIVE (NEGATIVE); PHENCYCLIDINE URINE NEGATIVE (NEGATIVE)
[2020-05-16] MEDS ORDERED: POTASSIUM CHLORIDE 10 MEQ SR TABLET PO ONE (23:15)
[2020-05-17] VITALS (10 sets, daily range): BP systolic 98–135; BP diastolic 58–65
[2020-05-17 03:32] LABS: ABG BASE EXCESS -3.3 (-2.0-2.0); ABG HCO3 21.5 MEQ/L (22.0-26.0); ABG PARTIAL PRESSURE CO2 37.6 mmHg (35.0-45.0); ABG PARTIAL PRESSURE O2 142.3 mmHg (75.0-100.0); ABG STANDARD HCO3 21.8 MEQ/L (22.0-26.0); ABG TOTAL CO2 22.6 MEQ/L (22.0-29.0); ABG pH (ARTERIAL) 7.375 UNITS (7.350-7.450)
[2020-05-17] MEDS ORDERED: CARI1TAB7 PO (03:46)
[2020-05-17] MEDS ORDERED: PARO5TAB PO (03:46)
[2020-05-17] MEDS ORDERED: MELO15TA28 PO (03:46)
[2020-05-17] MEDS ORDERED: TRAZ-252 PO (03:46)
[2020-05-17] MEDS ORDERED: IBUP-1022 PO (03:47)
[2020-05-17] MEDS ORDERED: MED REC COMMENT (03:49)
[2020-05-17] MEDS ORDERED: NS 1,000 ML IV ONE ×3 (04:00→06:45)
[2020-05-17] MEDS ORDERED: GI COCKTAIL 50ML BTL(HYOSCYAMINE/MAALOX/LIDOCAINE VISCOUS)(1:3:1) PO ONE (04:15)
[2020-05-17] MEDS ORDERED: PANTOPRAZOLE 40MG VIAL (C9113 PER 1) IV ONE (04:15)
[2020-05-17] MEDS ORDERED: GLUCAGON INJ 1MG VIAL SC PRN (04:45)
[2020-05-17] MEDS ORDERED: GLUCOSE 4GM CHEW TABLET PO PRN (04:45)
[2020-05-17] MEDS ORDERED: DEXTROSE 50% 50 ML SYRINGE IV PRN (04:45)
[2020-05-17 05:58] LABS: ABG BASE EXCESS -4.3 (-2.0-2.0); ABG HCO3 20.8 MEQ/L (22.0-26.0); ABG O2 SATURATION 96.2 % (95.0-99.0); ABG PARTIAL PRESSURE CO2 38.2 mmHg (35.0-45.0); ABG PARTIAL PRESSURE O2 82.7 mmHg (75.0-100.0); ABG STANDARD HCO3 20.9 MEQ/L (22.0-26.0); ABG pH (ARTERIAL) 7.354 UNITS (7.350-7.450)
[2020-05-17] MEDS: D5W/0.45% SODIUM CHLORIDE 1,000 ML IV SCH ×2 (06:00→16:10)
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
[2020-05-17] MEDS ORDERED: NOREPINEPHRINE BITARTRATE 8 MG in D5W 492 ML IV SCH (07:20)
[2020-05-17 07:23] LABS: BASO % 0.5 % (0.0-1.0); EOS # 0.2 10^3/uL (0.0-0.5); EOS % 2.1 % (0.0-3.0); HEMATOCRIT 34.3 % (36.0-47.0); HEMOGLOBIN 10.6 g/dl (12.0-15.5); LYMPH # 2.3 10^3/uL (1.5-5.0); LYMPH % 27.7 % (24.0-44.0); MEAN CORPUSCULAR HEMOGLOBIN 28.7 pg (27.0-33.0); MEAN CORPUSCULAR HGB CONC 30.9 g/dl (32.0-36.5); MONO # 0.3 10^3/uL (0.0-0.8); MONO % 3.7 % (0.0-5.0); NEUTROPHILS # 5.5 10^3/uL (1.5-8.5); NEUTROPHILS % 65.6 % (36.0-66.0); PLATELET COUNT, AUTOMATED 205 10^3/uL (150-450); RED BLOOD COUNT 3.69 10^6/uL (4.00-5.40); WHITE BLOOD COUNT 8.4 10^3/uL (4.0-10.0)
--- NOTE | 2020-05-17 07:51 | REP ---
INDICATION: drug overdose r/o aspiration. ams. COMPARISON: 07/05/2018 TECHNIQUE: Portable AP view of the chest FINDINGS: Right lower lobe opacities suggesting atelectasis/early pneumonia and possible small pleural reaction. No pneumothorax. Left hemithorax is clear. Mediastinum and cardiac silhouette are within normal limits for portable technique. Skeletal structures appear intact. IMPRESSION: Right lower lobe opacity suggesting atelectasis/early infiltrate and possible small pleural reaction. <Electronically signed by Abiodun Shook > 05/17/20 0736
[2020-05-17 07:52] LABS: CHOLESTEROL RISK RATIO 3.892 (<5); FREE THYROXINE INDEX 4.3 % (1.3-4.8); THYROID STIMULATING HORMONE 2.31 uIU/ML (0.358-3.740); THYROXINE (T4) 10.2 UG/DL (4.5-12.0)
[2020-05-17 07:59] LABS: ERYTHROCYTE SEDIMENTATION RATE 9 mm/hr (0-20)
[2020-05-17 08:03] LABS: ALT/SGPT 9 U/L (12-78); BILIRUBIN,TOTAL 0.2 MG/DL (0.2-1.0); BLOOD UREA NITROGEN 6 MG/DL (7-18); CALCIUM LEVEL 7.6 MG/DL (8.5-10.1); CARBON DIOXIDE LEVEL 23 MEQ/L (21-32); CHLORIDE LEVEL 114 MEQ/L (98-107); CK-MB VALUE MASS < 1.0 NG/ML (<3.6); CPK CREATINE PHOSPHOKINASE 129 U/L (26-192); CREATININE FOR GFR 0.66 MG/DL (0.55-1.30); GLOMERULAR FILTRATION RATE > 60.0 (>60); GLUCOSE, FASTING 82 MG/DL (70-100); MB/CK RELATIVE INDEX 0.78 (< OR =4); POTASSIUM SERUM 3.8 MEQ/L (3.5-5.1); SODIUM LEVEL 141 MEQ/L (136-145); TOTAL PROTEIN 5.4 GM/DL (6.4-8.2); TROPONIN I < 0.02 NG/ML (< 0.10)
[2020-05-17 09:08] LABS: HEMOGLOBIN A1c 5.1 %
[2020-05-17] MEDS: ENOXAPARIN 40MG/0.4ML SYRINGE (J1650 PER 10MG) SC SCH (09:26)
[2020-05-17] MEDS ORDERED: GI COCKTAIL 50ML BTL(HYOSCYAMINE/MAALOX/LIDOCAINE VISCOUS)(1:3:1) PO PRN (10:15)
--- NOTE | 2020-05-17 10:21 | ECGEPIP ---
[facility] - ED Test Date: 2020-05-16 Pat Name: RAVI LAGOS Department: Room: [place] [address] Gender: Female Manager Banquet: LUNA GRIFFITHB: 1990 Requested By: ROSALIA Ybarra Order Number: [id number] Reading MD: Jerod Littlejohn Measurements Intervals [place] Rate: 101 P: 25 AK: 144 QRS: 14 QRSD: 97 T: 56 QT: 331 QTc: 430 Interpretive Statements SINUS TACHYCARDIA POOR R WAVE PROGRESSION NONSPECIFIC ST & T-WAVE ABNORMALITY SIMILAR TO 07/05/18 Electronically Signed on 05-17-2020 10:21:17 EST by Jerod Littlejohn
--- NOTE | 2020-05-17 11:54 | IPNPDOC ---
Text Note Date of Service The patient was seen on 05/17/20. NOTE Patient was seen and examined this morning in the ICU. The patient was easily arousable and currently getting very well. Denies any suicidal ideation or any thoughts at this time. PHYSICAL EXAMINATION: GENERAL APPEARANCE: Lethargic but cooperative and answers questions appro priately, very easily arousable HEENT: Face is symmetric. Tongue is midline. Follows commands. No JVD, thyromegaly, cervical lymphadenopathy. Dry mucous membranes, dilated pupils bilaterally, but reactive to light CARDIOVASCULAR: S1, S2, sinus tachycardia, no murmurs, rubs or gallops LUNGS: Air entry is equal bilaterally. Clear to auscultation. No adventitious breath sounds ABDOMEN: Obese, soft, nontender, nondistended, positive bowel sounds 4 quadrants. No rebound, guarding, no hepatosplenomegaly, no fluid wave EXTREMITIES: Trace edema bilaterally NEUROLOGIC: patient is lethargic but easily arousable, getting well. Motor function is 5/5 4 extremities. ASSESSMENT/PLAN: 30-year-old female with history of depression previously admitted to the inpatient mental health unit, but in by ambulance to the emergency room after ingesting 26 tablets of Soma due to severe depressive symptoms. Patient says that she has recently lost her job in that her is cheating on her. She also complains of chronic back pain, which has diminished her quality of life . Patient denies any homicidal ideation or plan. Patient was found to have altered mental status appears to be lethargic but still answers questions appropriately. Her mother stated that she took some trazodone as well, but when I asked the patient, she completely denies taking any trazodone. She stated that she is on trazodone, but only because she cannot sleep and did not take any additional doses of that. The patient denies any thoughts of harming herself at this time. 1. Suicide attempt. . Apparently she took 26 tablets of Soma. We will keep an eye on telemetry as well as acid base balance with electrolytes. She was initially slightly hypotensive, which is expected with Soma overdose, but now is maintaining a systolic blood pressure of 100. PICC Line, any For possible Levophed has been called off at this time. We'll continue to follow. If she is having no tachybradycardia arrhythmias on the telemetry for the next 24 hours and maintaining the blood pressure and with improvement in her mental status. Psychiatric be consulted for her to be evaluated and transferred to the psychiatric unit. 2. Drug-induced hypotension. Currently maintaining a systolic blood pressure 110. Continue to follow. 3. Chronic back pain: On trazodone as well as Soma is currently on hold. 4. Severe depression: We will consult psychiatry once medically optimized. 5. Obesity, BMI 31.9. Outpatient follow-up. Counseling for weight loss. 6: Tobacco abuse [id number] history of smoking. Nicotine patch at this time. Counseled for that. 7. Hypokalemia: Replace. Lovenox for DVT prophylaxis Disposition unknown at this time. VS,Fishbone, I+O VS, Fishbone, I+O Laboratory Tests 05/16/20 21:34 05/17/20 07:08 Vital Signs Date Time Temp Pulse Resp B/P (MAP) Pulse Ox O2 Delivery O2 Flow Rate FiO2 05/17/20 08:02 97.5 77 21 93 Nasal Cannula 2.0 05/17/20 07:47 90/56 (67) I&O- Last 24 Hours up to 6 AM 05/17/20 06:00 Intake Total 4000 ml Balance 4000 ml KAROL GOSS MD May 17, 2020 11:54
--- NOTE | 2020-05-17 23:37 | ECGEPIP ---
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
[2020-05-18] VITALS: BP 105/58
[2020-05-18] MEDS: D5W/0.45% SODIUM CHLORIDE 1,000 ML IV SCH ×2 (01:55→12:02)
[2020-05-18 04:00] VITALS: BP 109/57
[2020-05-18 06:16] LABS: HEMATOCRIT 36.4 % (36.0-47.0); HEMOGLOBIN 11.6 g/dl (12.0-15.5); MEAN CORPUSCULAR HEMOGLOBIN 29.6 pg (27.0-33.0); MEAN CORPUSCULAR HGB CONC 31.9 g/dl (32.0-36.5); MEAN CORPUSCULAR VOLUME 92.9 fl (80.0-96.0); PLATELET COUNT, AUTOMATED 228 10^3/uL (150-450); RED BLOOD COUNT 3.92 10^6/uL (4.00-5.40); WHITE BLOOD COUNT 7.7 10^3/uL (4.0-10.0)
[2020-05-18 07:00] LABS: BLOOD UREA NITROGEN 5 MG/DL (7-18); CARBON DIOXIDE LEVEL 22 MEQ/L (21-32); CHLORIDE LEVEL 114 MEQ/L (98-107); CREATININE FOR GFR 0.73 MG/DL (0.55-1.30); GLOMERULAR FILTRATION RATE > 60.0 (>60); GLUCOSE, FASTING 142 MG/DL (70-100); POTASSIUM SERUM 3.6 MEQ/L (3.5-5.1); SODIUM LEVEL 141 MEQ/L (136-145)
[2020-05-18 08:01] VITALS: BP 107/59
[2020-05-18] MEDS: ENOXAPARIN 40MG/0.4ML SYRINGE (J1650 PER 10MG) SC SCH (08:42)
[2020-05-18 12:00] VITALS: BP 109/63
--- NOTE | 2020-05-18 14:28 | IPNPDOC ---
Text Note Date of Service The patient was seen on 05/18/20. NOTE Patient was seen and examined this morning . She is much more arousable and is conversive eating very well. States that she wants to go home. PHYSICAL EXAMINATION: GENERAL APPEARANCE: Alert, oriented to time, place and person HEENT: Face is symmetric. Tongue is midline. Follows commands. No JVD, thyromegaly, cervical lymphadenopathy. Moist mucous membranes, dilated pupils bilaterally, but reactive to light CARDIOVASCULAR: S1, S2, sinus tachycardia, no murmurs, rubs or gallops LUNGS: Air entry is equal bilaterally. Clear to auscultation. No adventitious breath sounds ABDOMEN: Obese, soft, nontender, nondistended, positive bowel sounds 4 quadrants. No rebound, guarding, no hepatosplenomegaly, no fluid wave EXTREMITIES: Trace edema bilaterally NEUROLOGIC: Alert, oriented times place and person. Equal strength bilateral upper extremities. Equal strength bilateral lower extremities. Incisions are intact. Reflexes normal. Pupils are reactive to light and convergence. ASSESSMENT/PLAN: 30-year-old female with history of depression previously admitted to the [facility], but in by ambulance to the emergency room after ingesting 26 tablets of Soma due to severe depressive symptoms. Patient says that she has recently lost her job in that her is cheating on her. She also complains of chronic back pain, which has diminished her quality of life . Patient denies any homicidal ideation or plan. Patient was found to have altered mental status appears to be lethargic but still answers questions appropriately. Her mother stated that she took some trazodone as well, but when I asked the patient, she completely denies taking any trazodone. She stated that she is on trazodone, but only because she cannot sleep and did not take any additional doses of that. The patient denies any thoughts of harming herself at this time. 1. Suicide attempt. . Apparently she took 26 tablets of Soma. no tachybradycardia arrhythmias on the telemetry for the next 24 hours and maintaining the blood pressure and with improvement in her mental status. P sychiatric is consulted for her to be evaluated and transferred to the psychiatric unit. Dr. Copeland will see the patient later this afternoon. The necessity form to transfer. 2. I am acute has been completed. 2. Drug-induced hypotension. Currently maintaining a systolic blood pressure 110. Continue to follow. 3. Chronic back pain: On trazodone as well as Soma is currently on hold. 4. Severe depression: We will consult psychiatry once medically optimized. 5. Obesity, BMI 31.9. Outpatient follow-up. Counseling for weight loss. 6: Tobacco abuse 65-xavy-rpha history of smoking. Nicotine patch at this time. Counseled for that. 7. Hypokalemia: Replace. Lovenox for DVT prophylaxis Likely inpatient mental health once the bed is available there.. VS,Fishbone, I+O VS, Fishbone, I+O Laboratory Tests 05/18/20 05:51 Vital Signs Date Time Temp Pulse Resp B/P (MAP) Pulse Ox O2 Delivery O2 Flow Rate FiO2 05/18/20 12:00 97.2 66 17 109/63 (78) 98 Room Air 05/17/20 09:00 2.0 I&O- Last 24 Hours up to 6 AM 05/18/20 05:59 Intake Total 2844 ml Output Total 1100 ml Balance 1744 ml KAROL GOSS MD May 18, 2020 14:28
[2020-05-18 16:00] VITALS: BP 108/66
[2020-05-18 20:00] VITALS: BP 131/63
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
== END 2020-05-18 23:31 ==
LOC: M ED 21:25 → M ED INP 21:26 → ENRESERV 05-17 07:32 → M ICU 05-17 09:06 → M PCU 05-17 14:29
PROVIDERS: ADMIT General Practice; ATTEND Internal Medicine
DX: T14.91XA Suicide attempt, initial encounter (principal); T50.992A Poisoning by other drugs, medicaments and biological substances, intentional self-harm, initial encounter; I95.2 Hypotension due to drugs; F32.9 Major depressive disorder, single episode, unspecified; E87.6 Hypokalemia; G89.29 Other chronic pain; E66.9 Obesity, unspecified; Z79.899 Other long term (current) drug therapy; F17.218 Nicotine dependence, cigarettes, with other nicotine-induced disorders; Y92.89 Other specified places as the place of occurrence of the external cause
CPT/HCPCS: 36415; 36600; 71045; 80048; 80053; 80061; 80076; 80307; 82140; 82550; 82553; 82803; 83036; 83605; 84145; 84436; 84443; 84479; 84484; 84703; 85025; 85027; 85652; 86140; 93005; 93041; 94760; 96361; 96374; 96375; 96376; 99285; C9113; G0480; J1650; U0002

== ENCOUNTER 2020-05-18 21:56 | Inpatient (IN) | payer BC ==
[~2020-05-18 21:56] MED LIST changes: +CARI1TAB7 PO; +MED REC COMMENT; +MELO15TA28 PO; +PARO5TAB PO
[2020-05-18] MEDS ORDERED: ACETAMINOPHEN TAB 650MG DOSE (2X325MG) PO PRN (22:45)
[2020-05-18] MEDS ORDERED: MAALOX 30 ML SUSP *UDC PO PRN (22:45)
[2020-05-18] MEDS ORDERED: OLANZapine ORAL DISINTEGRATING TAB 5MG PO PRN (22:45)
[2020-05-18] MEDS ORDERED: traZODone 50 MG TAB PO PRN (22:45)
[2020-05-18] MEDS ORDERED: MOM 30ML SUSPENSION UDC PO PRN (22:45)
[2020-05-18 23:30] VITALS: BP 133/88
[2020-05-19 06:33] VITALS: BP 123/67
[2020-05-19] MEDS: PARoxetine 10MG TABLET PO SCH (09:00)
[2020-05-19] MEDS: AZITHROMYCIN 250MG TABLET PO SCH (09:00)
--- NOTE | 2020-05-19 10:27 | HPEPDOC ---
[facility] Medical History & Physical Date of Admission May 19, 2020 Date of Service: May 19, 2020 History and Physical CHIEF COMPLAINT: Depression HISTORY OF PRESENT ILLNESS: 30-year-old female past medical history of GERD, anxiety and depression, exercise-induced asthma. I am asked to provide a medical assessment of patient admitted to the psychiatric unit. My assessment is limited to medical problems and does not address any psychiatric problems which is deferred to the in-house psychiatrist. Unfortunately the patient this morning did not want to answer any of my questions or be seen. My medical evaluation will be based on chart review and evaluation of her laboratory results. PAST MEDICAL HISTORY: From chart review patient has a history of exercise-induced asthma, GERD, arthritis, chronic back pain, depression and anxiety. PAST SURGICAL HISTORY: From chart review patient had a right knee surgery, right breast biopsy in 2012, bilateral fallopian tube removal 2016. SOCIAL HISTORY: From chart review patient has a history of polysubstance abuse. FAMILY HISTORY: I am unable to review family history at this time ALLERGIES: Please see below. REVIEW OF SYSTEMS: Unable to obtain review of systems as patient refuses to speak HOME MEDICATIONS: Please see below. PHYSICAL EXAMINATION: I am unable to examine the patient as she refuses to be seen or examined today LABORATORY DATA: See below. IMAGING: CXR 05/17 Right lower lobe opacity suggesting atelectasis/early infiltrate and possible small pleural reaction. MICROBIOLOGY: Please see below. ASSESSMENT/PLAN # Possible PNA; CXR suggestive of possible early infiltrate. Patient hasn't reported any symptoms and lab work is unrevealing, no fever no leukocytosis. qtc 416. I will treat her with Azithromycin 500mg PO for 3 days and ask that she follows up with her PCP upon discharge. # Anemia: Repeat CBC in the morning. No reports of active bleeding. Follow up with PCP # Drug abuse: UDS negative this visit # Anxiety/depression: Per psych A [facility] Hospitalist Vital Signs Vital Signs Date Time Temp Pulse Resp B/P (MAP) Pulse Ox O2 Delivery O2 Flow Rate FiO2 05/19/20 06:33 97.9 58 16 123/67 (85) 05/18/20 23:30 99 Room Air Home Medications Scheduled Carisoprodol (Carisoprodol) 350 Mg Tablet, 350 MG PO TID Meloxicam (Meloxicam) 15 Mg Tablet, 15 MG PO DAILY Omeprazole (Omeprazole) 40 Mg Capsule.dr, 40 MG PO BID Paroxetine (Paroxetine HCl) 10 Mg Tablet, 10 MG PO DAILY Trazodone HCl (Trazodone HCl) 50 Mg Tablet, 50 MG PO DAILY Scheduled PRN Ibuprofen (Ibuprofen) 600 Mg Tablet, 600 MG PO QID PRN for PAIN Miscellaneous Medications [Med Rec Comment] USED EXTERNAL MED HISTORY UNABLE TO SPEAK WITH PATIENT Allergies Coded Allergies: SEASONAL ALLERGIES (Verified Allergy, Unknown, 07/16/18) A-FIB/CHADSVASC A-FIB History Current/History of A-Fib/PAF?: No YOUSEMATTHEW Cardoso MD May 19, 2020 10:27
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
[2020-05-20 06:39] VITALS: BP 140/75
[2020-05-20] MEDS: AZITHROMYCIN 250MG TABLET PO SCH (08:48)
[2020-05-20] MEDS: PARoxetine 10MG TABLET PO SCH (08:48)
--- NOTE | 2020-05-20 10:32 | MHIPNPDOC ---
[facility] Progress Note Progress Note DATE OF SERVICE: 05/20/20 Subjective HPI/Interval Hx: The patient is met with today, she had initially been quite ambivalent about meeting with most of her providers and focused on discharge. After some time of speaking to her, she became more reasonable and discussed multiple stressors and that she had been struggling with depression, she still emphatically stated that she did not taken overdose to harm herself, but simply been in much pain and had taken too much of her muscle relaxer accidentally. She continues to report that she feels somewhat improved but also notes that the environment on the unit is too hectic for her to feel like she gets much out of it. She reports feeling b nafisa since being resumed on her home medications. Objective General: [Well dressed with good hygiene] Speech: [Spontaneous and fluid] Thought processes: [Linear and logical] Thought content: [Future orientated] Abstract reasoning, and computation: [Intact] Description of associations: [Intact] Description of abnormal or psychotic thoughts:[Denies any suicidal or homicidal ideation. Denies any auditory or visual hallucinations. Does not appear to be responding to internal stimuli. Does not appear to be endorsing any bizarre or paranoid ideation.] Judgment: improved, for reported previous more cooperative Insight: improved, more open Orientation: [Alert and orientated 3] Recent and remote memory: [Intact] Attention span and concentration: [Intact] Fund of knowledge: [Adequate] Mood: ["okay"] Affect: mildly anxious Assessment F33.8 Other recurrent depressive disorders Plan Will continue patient's home antidepressant, will monitor overnight, discussed with patient about trying to create a safe discharge plan, she was amenable to this and signed a release for both her mother and her so that we could coordinate she appears to be much more reasonable today than she had been previously refusing to meet extensively with her previous provider. She likely has some minor depression, complicated by chronic pain, however, she seems to be motivated to be released and is anxious about the environment Vital Signs Vital Signs Date Time Temp Pulse Resp B/P (MAP) Pulse Ox O2 Delivery O2 Flow Rate FiO2 05/20/20 06:39 97.5 57 16 140/75 (96) Room Air 05/18/20 23:30 99 Current Medications Current Medications Medications (Trade) Dose Ordered Sig/Diony Route PRN Reason Start Time Stop Time Status Last Admin Dose Admin Acetaminophen (Tylenol Tab) 650 mg Q6HP PRN PO HEADACHE or DISCOMFORT 05/18/20 22:45 Al Hydrox/Mg Hydrox/Simethicone (Mylanta) 30 ml Q4HP PRN PO HEARTBURN/INDIGESTION 05/18/20 22:45 Azithromycin (Zithromax Tab) 500 mg DAILY PO 05/19/20 09:00 05/21/20 09:01 05/20/20 08:48 Magnesium Hydroxide (Milk Of Magnesia) 30 ml DAILYPRN PRN PO CONSTIPATION 05/18/20 22:45 Olanzapine (ZyPREXA ZYDIS) 5 mg Q4HP PRN PO AGITATION 05/18/20 22:45 Paroxetine HCl (PAXil) 10 mg DAILY PO 05/19/20 09:00 05/20/20 08:48 Trazodone HCl (Desyrel) 50 mg QHSP PRN PO INSOMNIA 05/18/20 22:45 Allergies Coded Allergies: SEASONAL ALLERGIES (Verified Allergy, Unknown, 07/16/18) SELIN MURILLO DO May 20, 2020 10:32
[2020-05-20 11:41] LABS: HEMATOCRIT 41.1 % (36.0-47.0); HEMOGLOBIN 13.1 g/dl (12.0-15.5); MEAN CORPUSCULAR HGB CONC 31.9 g/dl (32.0-36.5); MEAN CORPUSCULAR VOLUME 90.9 fl (80.0-96.0); PLATELET COUNT, AUTOMATED 256 10^3/uL (150-450); RED BLOOD COUNT 4.52 10^6/uL (4.00-5.40); WHITE BLOOD COUNT 8.4 10^3/uL (4.0-10.0)
[2020-05-20 16:34] VITALS: BP 128/65
[2020-05-21 06:38] VITALS: BP 140/74
[2020-05-21] MEDS: AZITHROMYCIN 250MG TABLET PO SCH (08:09)
[2020-05-21] MEDS: PARoxetine 10MG TABLET PO SCH (08:10)
--- NOTE | 2020-05-21 09:51 | MHDSPDOC ---
[facility] Discharge Summary Discharge Summary DATE OF ADMISSION: May 18, 2020 at 21:56 DATE OF DISCHARGE: DISCHARGE DIAGNOSES: 1. . 2. . REASON FOR ADMISSION: CONSULTANTS INVOLVED: TREATMENT AND PROGRESS ON THE UNIT : . HOSPITAL COURSE: DISCHARGE ASSESSMENT: MENTAL STATUS EXAMINATION ON DISCHARGE: Patient is a -year old female, who is . Speech is . Language skills are . Thought processes including: . Thought content: . Abstract reasoning, and computation: . Description of associations: . Description of abnormal or psychotic thoughts: . Judgment: . Insight: . Orientation to . Recent and remote memory: . Attention span and concentration: . Language: . Fund of knowledge: . Mood: . Affect: . MEDICATIONS ON DISCHARGE: - for . - for . - for . PLAN/FOLLOWUP ARRANGEMENTS: . The amount of time spent in the coordination of care for this patient was approximately minutes. Vital Signs/I&Os Vital Signs Date Time Temp Pulse Resp B/P (MAP) Pulse Ox O2 Delivery O2 Flow Rate FiO2 05/21/20 06:38 99.3 50 18 140/74 (96) Room Air 05/18/20 23:30 99 Laboratory Data Labs 24H Laboratory Tests 2 05/20/20 11:14: Nucleated Red Blood Cells % (auto) 0.0 CBC/BMP Laboratory Tests 05/20/20 11:14 Medications Scheduled Meloxicam (Meloxicam) 15 Mg Tablet, 15 MG PO DAILY, (Reported) Omeprazole (Omeprazole) 40 Mg Capsule.dr, 40 MG PO BID, (Reported) Paroxetine (Paroxetine HCl) 10 Mg Tablet, 10 MG PO DAILY, (Reported) Trazodone HCl (Trazodone HCl) 50 Mg Tablet, 50 MG PO DAILY, (Reported) Scheduled PRN Ibuprofen (Ibuprofen) 600 Mg Tablet, 600 MG PO QID PRN for PAIN, (Reported) Miscellaneous Medications [Med Rec Comment] , (Reported) USED EXTERNAL MED HISTORY UNABLE TO SPEAK WITH PATIENT Allergies Coded Allergies: SEASONAL ALLERGIES (Verified Allergy, Unknown, 07/16/18) SELIN MURILLO DO May 21, 2020 09:51
== END 2020-05-21 11:30 | disposition home or self-care (01) | DRG 753 ==
LOC: M PSY 21:56
PROVIDERS: ADMIT Psychiatry & Neurology Addiction Medicine; ATTEND Psychiatry & Neurology Addiction Medicine
DX: F33.8 Other recurrent depressive disorders (principal); F41.9 Anxiety disorder, unspecified; J45.909 Unspecified asthma, uncomplicated; K21.9 Gastro-esophageal reflux disease without esophagitis; M19.90 Unspecified osteoarthritis, unspecified site; M54.5 Low back pain; Z79.899 Other long term (current) drug therapy

== ENCOUNTER 2020-11-03 13:09 | Emergency (ER) | payer OTHER, BC ==
[~2020-11-03] VITALS: Ht 177.8 cm; Wt 90.4 kg
[2020-11-03] MEDS ORDERED: IBUP-1022 PO (16:22)
[2020-11-03] MEDS ORDERED: PERC5TAB12 PO (16:25)
[2020-11-03] MEDS ORDERED: CYCL5TAB PO (16:29)
[2020-11-03] MEDS ORDERED: IBUPROFEN 400MG TAB PO ONE (16:30)
[2020-11-03] MEDS ORDERED: PERCOCET 5MG/325MG TAB PO ONE (16:30)
[2020-11-03 16:35] VITALS: BP 142/86
== END 2020-11-03 16:40 | disposition home or self-care (01) ==
LOC: M ED 13:09
DX: S16.1XXA Strain of muscle, fascia and tendon at neck level, initial encounter (principal); S29.012A Strain of muscle and tendon of back wall of thorax, initial encounter; V49.49XA Driver injured in collision with other motor vehicles in traffic accident, initial encounter; Y92.410 Unspecified street and highway as the place of occurrence of the external cause; J45.909 Unspecified asthma, uncomplicated; F33.9 Major depressive disorder, recurrent, unspecified; F41.9 Anxiety disorder, unspecified; Z79.899 Other long term (current) drug therapy; F17.210 Nicotine dependence, cigarettes, uncomplicated

== ENCOUNTER → 2020-11-05 | Outpatient (CLI) | payer BC, OTHER ==
[~2020-11-05] MED LIST changes: +CYCL5TAB PO; +PERC5TAB12 PO
--- NOTE | 2020-11-05 16:28 | REP ---
INDICATION: CERVICALGIA. COMPARISON: Comparison is made with CT imaging from June 25, 2013.. TECHNIQUE: Five views. FINDINGS: Lateral view demonstrates slight reversal of the normal cervical lordosis. Cervical vertebral body heights are preserved. Disc spaces are preserved. Alignment is normal. AP and open-mouth odontoid views are unremarkable. Oblique images demonstrate intact neural foramina bilaterally at each cervical level and normally aligned facets. IMPRESSION: Straightening otherwise negative cervical spine radiographs. <Electronically signed by Leonard Garcia > 11/05/20 [id number]
--- NOTE | 2020-11-05 16:30 | REP ---
INDICATION: DORSALGIA, UNSPECIFIED. COMPARISON: Comparison radiographs November 19, 2017. TECHNIQUE: Three views. FINDINGS: Thoracic vertebral body heights are preserved. Alignment is normal. Pedicles and posterior elements are intact. Disc spaces are maintained. No paravertebral soft tissue swelling or mass is seen. Swimmer's lateral view shows no additional abnormality. IMPRESSION: Negative radiographs of the thoracic spine. <Electronically signed by Leonard Garcia > 11/05/20 0813
--- NOTE | 2020-11-05 16:32 | REP ---
INDICATION: LOW BACK PAIN. COMPARISON: Comparison radiographs are from November 15, 2018.. TECHNIQUE: Three views of the lumbar spine are provided. FINDINGS: Lumbar vertebral body heights are preserved. Alignment is normal. There is no evidence of spondylolysis or spondylolisthesis. There is mild L4-5 disc space narrowing. Discogenic spurring is noted at L5-S1. This is a new finding compared with the 2019 study. There is also minimal discogenic spurring at L2-3 but this is unchanged. Pedicles and posterior elements are intact. Psoas margins are symmetric. Sacrum and SI joints are unremarkable. Umbilical jewelry is noted incidentally. IMPRESSION: Mild degenerative disc disease changes L2-3, 4 5 and 5 1. <Electronically signed by Leonard Garcia > 11/05/20 [id number]
== END ==
LOC: M RAD 14:02
PROVIDERS: ATTEND Family Medicine Addiction Medicine
DX: M54.9 Dorsalgia, unspecified (principal)

== ENCOUNTER 2020-11-18 13:02 | Emergency (ER) | payer OTHER, SELFPAY ==
[~2020-11-18] VITALS: Ht 177.8 cm; Wt 88.9 kg
[2020-11-18 13:11] VITALS: BP 111/61
--- NOTE | 2020-11-18 16:16 | REP ---
INDICATION: trauma, pain over 1st mt. COMPARISON: None. TECHNIQUE: Four views FINDINGS: The joint spaces are symmetric and relatively well maintained. There is no evidence of acute fracture or destructive osseous lesion. IMPRESSION: Negative. <Electronically signed by Jed Covington > 11/18/20 [id number]
== END 2020-11-18 16:36 | disposition home or self-care (01) ==
LOC: M ED 13:02
DX: S93.601A Unspecified sprain of right foot, initial encounter (principal); W01.0XXA Fall on same level from slipping, tripping and stumbling without subsequent striking against object, initial encounter; Y92.828 Other wilderness area as the place of occurrence of the external cause; Y93.01 Activity, walking, marching and hiking; Y99.9 Unspecified external cause status; F17.200 Nicotine dependence, unspecified, uncomplicated; Z79.899 Other long term (current) drug therapy

== ENCOUNTER → 2021-01-13 | Outpatient (CLI) | payer SELFPAY ==
--- NOTE | 2021-01-14 00:49 | REP ---
INDICATION: SACROCOCCYGEAL DISORDERS, NOT ELSEWHERE CLASSIFIED COMPARISON: None. TECHNIQUE: AP and lateral views of the sacrum and coccyx FINDINGS: Bilateral sacroiliac joints are symmetric and normal. Sacrum and coccyx appear relatively intact and without evidence for acute fracture or subluxation. Surrounding soft tissues are unremarkable. IMPRESSION: Normal sacrum/coccyx radiographs. <Electronically signed by Abiodun Shook > 01/14/21 0046
== END ==
LOC: M RAD 12:36
PROVIDERS: ATTEND Family Medicine Addiction Medicine
DX: M53.3 Sacrococcygeal disorders, not elsewhere classified (principal)

== ENCOUNTER 2021-01-23 21:50 | Emergency (ER) | payer SELFPAY ==
[~2021-01-23] VITALS: Ht 177.8 cm; Wt 87.0 kg
[2021-01-23 21:51] VITALS: BP 149/73
[2021-01-23] MEDS ORDERED: LIDOCAINE 1% MDV 20ML VIAL As Ordered ONE (22:14)
[2021-01-23] MEDS ORDERED: BOOSTRIX/ADACEL VACCINE (DIPHTH/PERTUSS/ACELL/TETANUS) 0.5ML SYR IM ONE (22:15)
[2021-01-23] MEDS ORDERED: LIDOCAINE 1% MDV 20ML VIAL SC ONE (22:15)
== END 2021-01-23 23:05 | disposition home or self-care (01) ==
LOC: M ED 21:50
DX: S61.011A Laceration without foreign body of right thumb without damage to nail, initial encounter (principal); W26.8XXA Contact with other sharp object(s), not elsewhere classified, initial encounter; Y92.9 Unspecified place or not applicable; Y93.9 Activity, unspecified; Y99.9 Unspecified external cause status

== ENCOUNTER → 2021-04-25 | Outpatient (CLI) | payer SELFPAY ==
[~2021-04-25] MED LIST changes: +LEXA1TAB; +NAPR-837 PO
--- NOTE | 2021-04-25 15:10 | REP ---
INDICATION: PAIN IN RT SHOULDER. COMPARISON: None. TECHNIQUE: Three views of the right shoulder were performed. FINDINGS: The acromioclavicular and glenohumeral relationships are within normal limits. There is no acute fracture or destructive osseous lesion. IMPRESSION: Within normal limits <Electronically signed by Jed Covington > 04/25/21 [id number]
== END ==
LOC: M RAD 13:36
PROVIDERS: ATTEND Family Medicine Addiction Medicine
DX: M25.511 Pain in right shoulder (principal)

== ENCOUNTER 2021-04-26 15:25 | Emergency (ER) | payer SELFPAY ==
[~2021-04-26] VITALS: Ht 175.3 cm; Wt 83.3 kg
[~2021-04-26 15:25] MED LIST changes: -LEXA1TAB; -NAPR-837 PO
--- OUTSIDE RECORDS SUMMARY | 2021-04-26 15:33 | CCD ---
Author Organization Unknown Address [address] [place] [address] Phone [phone] Care Team Providers Care Milieu Technician Name Role Phone [facility] 129 [phone] Allergies Code Code System Name Reaction Severity Status Onset NKDA Notes: SEASONAL Medications Name Status Start Date Stop Date albuterol sulfate HFA 90 mcg/actuation aerosol inhaler Completed 05/26/2020 amoxicillin 875 mg-potassium clavulanate 125 mg tablet Completed 04/22/2020 carisoprodol 350 mg tablet Completed 05/26 cyclobenzaprine 10 mg tablet Completed cyclobenzaprine 5 mg tablet TAKE 1 TABLET 5MG BY MOUTH THREE TIMES A DAY NEEDED FOR BACK PAIN Completed 12/08/2020 escitalopram 10 mg tablet TAKE ONE TABLET BY MOUTH EVERY DAY IN THE MORNING FOR 30 DAYS Active Not available ibuprofen 600 mg tablet TAKE ONE TABLET BY MOUTH THREE TIMES A DAY WITH FOOD FOR PAIN Completed 12/08/2020 ketorolac 10 mg tablet Completed 0 lidocaine 5 % topical patch Completed 05/03 meloxicam 15 mg tablet Take 1 tablet every day by oral route. Completed 12/08/2020 methylprednisolone 4 mg tablets in a dose pack Completed 05/26/2020 naproxen 500 mg tablet Completed 0 omeprazole 40 mg capsule,delayed release TAKE ONE CAPSULE BY MOUTH TWICE A DAY Active N ot available oxycodone-acetaminophen 5 mg-325 mg tabl et TAKE ONE TABLET BY MOUTH EVERY 12 HOURS NEEDED FOR PAIN MAXIMUM DAILY DOSE 4 TABLETS Completed 02/14/2021 paroxetine 10 mg tablet TAKE ONE TABLET BY MOUTH EVERY DAY Completed 03/2021 prednisone 20 mg tablet Completed 04/22/20 20 tizanidine 4 mg capsule Completed 04/22/20 20 trazodone 50 mg tablet TAKE ONE TABLET BY MOUTH EVERY DAY Active Not available Problems Name Status Onset Date Source Asthma Active 10/02/2012 History Metabolic Syndrome X Active 08/20/2018 History Low Back Pain Active 08/20/2018 History General Finding of Observation of Patient Active 2018 History Falls Active 09/10/2018 History Vitamin D Deficiency Active 09/17/2018 History Clinical Finding Active 12/02/2018 History Tobacco Dependence Caused by Cigarettes Active 12/03/19 History Increased Frequency of Urination Active 12/31/2018 History Influenza Vaccine Needed Active 12/31/2018 History Ataxia Active 01/21/[address] Concept Active 03/04/2019 History Acute Bronchitis Active 04/09/2020 History Gastroesophageal Reflux Disease without Esophagitis Active 04/29/2020 Chronic Depression Active 05/12/2020 Chronic Neck Pain Active 11/04/2020 Backache Active 11/04/2020 Pain in the Coccyx Active 11/12/2020 Pain of Right Shoulder Joint Active 03/30/2021 Procedures Date Name Performed by 07/02/2014 Knee Surgery Notes: Right knee Information not available Fallopian Tube Excision Information not available 06/02/2020 XR, Shoulder, 2 or More View Information not available 11/04/2020 XR, Cervical Spine, 4 or 5 View Informat ion not available 11/04/2020 XR, Lumbosacral Spine, 2 or 3 View Infor mation not available 11/04/2020 XR, Thoracic Spine Information not avai lable 11/12/2020 XR, Sacrum + Coccyx, 2 or More View [facility] [address] [place] [address] (Work Place) 03/30/2021 XR, Shoulder, [address] [facility] [address] [place] [address] (Work Place) Notes: Scoliosis, Degenerative disk dise ase, bulging disks | Scoliosis, Degenerative disk disease, bulging disks, fallopian tube removal, Results Lab Results Date Name Specimen Result Interpretation Description Value Range Status Address 05/18/2020 Cbc Normal White Blood Count 7.7 10 4.0-10. 0 10 Final [facility]: [address] [facility] Low Red Blood Count 3.92 10 4.00-5.40 10 Final [facility]: 0 [facility] Low Hemoglobin 11.6 g/dL 12.0-15.5 g/dL Final [facility]: [address] [facility] Normal Hematocrit 36.4 % 36.0-47.0 % [facility]: 0 [facility] Normal Mean Corpuscular Volume 92.9 fL 80.0 -96.0 fL [facility]: [address] [facility] Normal Mean Corpuscular Hemoglobin 29.6 pg 27.0-33.0 pg [facility]: [address] [facility] Low Mean Corpuscular HGB Conc 31.9 g/dL 32.0-36.5 g/dL [facility]: 0 [facility] Normal Red Cell Distribution Width 14.3 % 1 1.5-14.5 % [facility]: [address] [place] [address] Normal Platelet Count, Automated 228 10 150 -450 10 [facility]: 0 [facility] Normal Nucleated Red Blood Cell % 0.0 % 0- 0 % [facility]: 0 [facility] 05/18/2020 BMP, Serum or Plasma High Glucose, Fastin g 142 mg/dL 70-100 mg/dL [facility]: [address] [facility] Low Blood Urea Nitrogen 5 mg/dL 7-18 mg/ dL [facility]: [address] [place] [address] Normal Creatinine for GFR 0.73 mg/dL 0.55-1 .30 mg/dL [facility]: 0 [facility] Normal Glomerular Filtration Rate > 60.0 >6 0 [facility]: [address] [facility] Normal Sodium Level 141 mEq/L 136-145 mEq/L [facility]: 0 [facility] Normal Potassium Serum 3.6 mEq/L 3.5-5.1 mE q/L [facility]: 0 [facility] High Chloride Level 114 mEq/L 98-107 mEq/ L [facility]: 0 [facility] Normal Carbon Dioxide Level 22 mEq/L 21-32 mEq/L [facility]: [address] [facility] Low Anion Gap 5 mEq/L 8-16 mEq/L [facility]: [address] [facility] Low Calcium Level 8.0 mg/dL 8.5-10.1 mg/ dL [facility]: [address] [facility] 05/17/2020 Gas Panel, Arterial Blood Normal ABG pH (Ar terial) 7.375 units 7.350-7.450 units [facility]: [address] [facility] Normal ABG Partial Pressure CO2 37.6 mmHg 3 5.0-45.0 mmHg [facility]: [address] [facility] High ABG Partial Pressure O2 142.3 mmHg 7 5.0-100.0 mmHg [facility]: [address] [facility] Normal ABG Total CO2 22.6 mEq/L 22.0-29.0 m Eq/L [facility]: [address] [facility] Low Abg Hco3 21.5 mEq/L 22.0-26.0 mEq/L [facility]: [address] [facility] Low ABG Base Excess -3.3 -2.0-2.0 [place] l [facility]: [address] [facility] Low ABG Standard HCO3 21.8 mEq/L 22.0-26 .0 mEq/L [facility]: [address] [facility] Normal ABG O2 Saturation 99.0 % 95.0-99.0 % [facility]: [address] [facility] 05/17/2020 Gas Panel, Arterial Blood Normal ABG pH (Ar terial) 7.354 units 7.350-7.450 units [facility]: [address] [facility] Normal ABG Partial Pressure CO2 38.2 mmHg 3 5.0-45.0 mmHg [facility]: [address] [facility] Normal ABG Partial Pressure O2 82.7 mmHg 75 .0-100.0 mmHg [facility]: [address] [facility] Normal ABG Total CO2 22.0 mEq/L 22.0-29.0 m Eq/L [facility]: [address] [facility] Low Abg Hco3 20.8 mEq/L 22.0-26.0 mEq/L [facility]: [address] [facility] Low ABG Base Excess -4.3 -2.0-2.0 [place] l [facility]: [address] [facility] Low ABG Standard HCO3 20.9 mEq/L 22.0-26 .0 mEq/L [facility]: [address] [facility] Normal ABG O2 Saturation 96.2 % 95.0-99.0 % [facility]: [address] [facility] 05/17/2020 SARS CoV 2 RNA (COVID-19), QL, supervisor wrapping room-PCR, Respirat ory Specimen Normal Sars Covid-19 Amplification negative negative [facility]: [address] [facility] 05/17/2020 Ammonia High Ammonia 43 umol/L <32 umol/L Fi nal [facility]: [address] [facility] 05/17/2020 Lactic Acid, Serum or Plasma Normal Lactic Acid Sepsis Protocol 0.8 mmol/L 0.4-2.0 mmol/L [facility]: [address] [facility] 05/17/2020 Lipid Panel, Blood Normal Triglycerides Lev el 66 mg/dL <150 mg/dL [facility]: [address] [facility] Normal Cholesterol Level 109 mg/dL <200 mg/ dL [facility]: [address] [facility] Low HDL Cholesterol 28 mg/dL >40 mg/dL F inal [facility]: [address] [facility] Normal LDL Cholesterol 68 mg/dL <100 mg/dL [facility]: [address] [facility] Normal Non-hdl-c 81 mg/dL Health system: [address] [facility] Normal Cholesterol Risk Ratio 3.892 <5 [facility]: [address] [facility] 05/17/2020 Thyroid Panel, Serum High T Uptake 42 % 30 -39 % [facility]: [address] [facility] Normal Thyroxine (T4) 10.2 ug/dL 4.5-12.0 u g/dL [facility]: [address] [place] [address] Normal Free Thyroxine Index 4.3 % 1.3-4.8 % [facility]: [address] [place] [address] Normal Thyroid Stimulating Hormone 2. 310 uIU/mL 0.358-3.740 uIU/mL [facility]: [address] [place] [address] 05/17/2020 CBC W/ Auto Diff Normal White Blood Count 8.4 10 4.0-10.0 10 [facility]: [address] [place] [address] Low Red Blood Count 3.69 10 4.00-5.40 10 [facility]: [address] [place] [address] Low Hemoglobin 10.6 g/dL 12.0-15.5 g/dL [facility]: [address] [place] [address] Low Hematocrit 34.3 % 36.0-47.0 % [facility]: [address] [place] [address] Normal Mean Corpuscular Volume 93.0 fL 80.0 -96.0 fL [facility]: [address] [place] [address] Normal Mean Corpuscular Hemoglobin 28.7 pg 27.0-33.0 pg [facility]: [address] [place] [address] Low Mean Corpuscular HGB Conc 30.9 g/dL 32.0-36.5 g/dL [facility]: [address] [place] [address] Normal Red Cell Distribution Width 14.2 % 1 1.5-14.5 % [facility]: [address] [place] [address] Normal Platelet Count, Automated 205 10 150 -450 10 [facility]: 0 [facility] Normal Neutrophils % 65.6 % 36.0-66.0 % [facility]: [address] [facility] Normal Lymph % 27.7 % 24.0-44.0 % [facility]: [address], [place] Normal Brooke % 3.7 % 0.0-5.0 % [facility]: [address] [facility] Normal Eos % 2.1 % 0.0-3.0 % [facility]: [address] [facility] Normal Baso % 0.5 % 0.0-1.0 % [facility]: [address] [facility] Normal Immature Granulocyte % 0.4 % 0-3.0 % [facility]: [address] [facility] Normal Nucleated Red Blood Cell % 0.0 % 0- 0 % [facility]: [address] [facility] Normal Neutrophils # 5.5 10 1.5-8.5 10 [facility]: [address] [facility] Normal Lymph # 2.3 10 1.5-5.0 10 Health system: [address] [facility] Normal Brooke # 0.3 10 0.0-0.8 10 [facility]: [address] [facility] Normal Eos # 0.2 10 0.0-0.5 10 [facility]: [address] [facility] Normal Baso # 0.0 10 0.0-0.2 10 [facility]: [address] [facility] 05/17/2020 ESR (Erythrocyte Sedimentation Rate), Blood Nor mal Erythrocyte Sedimentation Rate 9 mm/HR 0-20 mm/HR [facility]: [address] [facility] 05/17/2020 HbA1C (Hemoglobin a1C), Blood Normal Hemogl obin a1C 5.1 % [facility]: [address] [facility] Normal Estimated Average Glucose 100 mg/dL 60-110 mg/dL [facility]: 0 [facility] 05/17/2020 CMP, Serum or Plasma Normal Glucose, Fastin g 82 mg/dL 70-100 mg/dL [facility]: [address] [facility] Low Blood Urea Nitrogen 6 mg/dL 7-18 mg/ dL [facility]: 0 [facility] Normal Creatinine for GFR 0.66 mg/dL 0.55-1 .30 mg/dL [facility]: [address] [place] [address] Normal Glomerular Filtration Rate > 60.0 >6 0 [facility]: 0 [facility] Normal Sodium Level 141 mEq/L 136-145 mEq/L [facility]: [address] [place] [address] Normal Potassium Serum 3.8 mEq/L 3.5-5.1 mE q/L [facility]: [address] [place] [address] High Chloride Level 114 mEq/L 98-107 mEq/ L [facility]: [address] [place] [address] Normal Carbon Dioxide Level 23 mEq/L 21-32 mEq/L [facility]: [address] [place] [address] Low Anion Gap 4 mEq/L 8-16 mEq/L [facility]: [address] [place] [address] Low Calcium Level 7.6 mg/dL 8.5-10.1 mg/ dL [facility]: 0 [facility] Low AST/SGOT 6 U/L 7-37 U/L [facility]: [address] [place] [address] Low ALT/SGPT 9 U/L 12-78 U/L Health system: 0 [facility] Normal Alkaline Phosphatase 74 U/L 45-117 U /L [facility]: [address] [place] [address] Normal Bilirubin,total 0.2 mg/dL 0.2-1.0 mg /dL [facility]: 0 [facility] Panic Low Total Protein 5.4 gm/dL 6.4-8.2 g m/dL [facility]: [address] [place] [address] Panic Low Albumin 3.0 gm/dL 3.2-5.2 gm/dL F inal [facility]: 0 [facility] Normal Albumin/globulin Ratio 1.3 1.2-2. 2 [facility]: [address] [place] [address] 05/17/2020 Cardiovascular Assessment Panel, Serum Normal CPK Creatine Phosphokinase 129 U/L 26-192 U/L Final [facility]: [address] [facility] Normal CK-mb Value Mass < 1.0 NG/mL <3.6 NG /mL [facility]: [address] [facility] Normal mb/CK Relative Index 0.78 < or =4 [facility]: [address] [facility] Normal Troponin I < 0.02 NG/mL < 0.10 NG/mL [facility]: [address] [facility] 05/17/2020 Procalcitonin, Serum Normal Procalcitonin <0.0 5 [facility]: [address] [place] [address] 05/17/2020 C Reactive Protein, QN, Serum or Plasma Normal C Reactive Protein Quantitativ 0.30 mg/dL 0.00-0.30 mg/dL [facility]: 0 [facility] Past Encounters 03/30/2021 Pain of Right Shoulder Joint; Tobacco Dependence Caused by Cigarettes Ministerio Fagan MD: [address] [place] [phone], Ph. 03/02/2021 Low Back Pain; Vesicular Hand Eczema Ministerio Fagan MD: [address] [place] [phone], Ph. 02/14/2021 Chronic Depression; Mixed Anxiety and Depressive Disorder Janene Branham MD: [address] [place] [phone], Ph. 01/31/2021 Removal of Suture Ministerio Fagan MD: [address] [place] [phone], Ph. 12/08/2020 Backache Ministerio Fagan MD: [address] [place] [phone], Ph. 11/12/2020 Pain in the Coccyx Ministerio Fagan MD: [address] [place] [phone], Ph. 11/04/2020 Tobacco Dependence Caused by Cigarettes; Chronic Neck Pain; Low Back Pain; Backache Ministerio Fagan MD: [address] [place] [phone], Ph. 09/03/2020 Chronic Depression; Severe Recurrent Major Depression Ministerio Fagan MD: [address] [place] [phone], Ph. 06/02/2020 Shoulder Pain; Chronic Depression Ministerio Fagan MD: [address] [place] [phone], Ph. 05/26/2020 Chronic Depression Ministerio Fagan MD: [address] [place] [phone], Ph. 05/12/2020 Severe Recurrent Major Depression Melissa Kwok, [facility]: [address] [place] [phone], Ph. 05/12/2020 Chronic Depression Ministerio Fagan MD: [address] [place] [phone], Ph. 04/22/2020 Chronic Low Back Pain Ministerio Fagan MD: [address] [place] [phone], Ph. Social History Tobacco Smoking Status Heavy Tobacco Smoker (1 pack per a da y) Vaccine List Vaccine Type influenza, injectable, quadrivalent, pre servative free 05/12/20200.5 mL Notes: pt has covid19 vaccines Plan of Care Reminders Provider Appointments None recorded. Lab None recorded. Referral None recorded. Procedures None recorded. Surgeries None recorded. Imaging None recorded. Vitals 03/30/2021 03:20PM ESTABLISHED [id number] Height Weight BMI Blood Pressure 70 in 188 lbs 27 kg/m2 125/76 mm[Hg] 03/02/2021 11:40AM ESTABLISHED [id number] Height Weight BMI Blood Pressure 70 in 189 lbs 6 oz 27.2 kg/m2 96/61 mm[Hg] 02/14/2021 01:00PM TELEPSYCH 60 Height 70 in 01/31/2021 11:00AM SAME DAY 20 Height Weight BMI Blood Pressure 70 in 191 lbs 4 oz 27.4 kg/m2 119/52 mm[Hg] 12/08/2020 01:20PM ESTABLISHED [id number] Height Weight BMI Blood Pressure 70 in 193 lbs 6 oz 27.7 kg/m2 96/61 mm[Hg] 11/12/2020 11:40AM ESTABLISHED [id number] Height Weight BMI Blood Pressure 70 in 195 lbs 4 oz 28 kg/m2 119/74 mm[Hg] 11/04/2020 01:40PM HOSPITAL DISCHARGE Height Weight BMI Blood Pressure 70 in 200 lbs 4 oz 28.7 kg/m2 102/66 mm[Hg] 09/03/2020 01:40PM ESTABLISHED [id number] Height Weight BMI Blood Pressure 70 in 208 lbs 8 oz 29.9 kg/m2 111/70 mm[Hg] 06/02/2020 02:00PM ESTABLISHED [id number] Height Weight BMI Blood Pressure 70 in 215 lbs 16 oz 31 kg/m2 102/64 mm[Hg] 05/26/2020 09:00AM PROVIDER REQUESTED Height Weight BMI Blood Pressure 70 in 220 lbs 9.6 oz 31.7 kg/m2 100/67 mm[Hg ] 05/12/2020 08:20AM ESTABLISHED [id number] Height Weight BMI Blood Pressure 70 in 220 lbs 16 oz 31.7 kg/m2 115/76 mm[Hg] 04/22/2020 10:00AM HOSPITAL DISCHARGE Height Weight BMI Blood Pressure 70 in 224 lbs 6 oz 32.2 kg/m2 113/73 mm[Hg] 04/09/2020 Height Weight BMI Blood Pressure 70 in 224 lbs 32.26 kg/m2 110/62 mm[Hg] 02/12/2020 Blood Pressure 111/69 mm[Hg] 04/22/2019 Height Weight BMI Blood Pressure 70 in 228 lbs 6.08 oz 32.89 kg/m2 110/73 mm[H g] 03/04/2019 Height Weight BMI Blood Pressure 70 in 227 lbs 4 oz 32.72 kg/m2 113/72 mm[Hg] 02/11/2019 Height Weight BMI Blood Pressure 70 in 225 lbs 8 oz 32.47 kg/m2 104/72 mm[Hg] 01/21/2019 Height Weight BMI Blood Pressure 70 in 226 lbs 32.54 kg/m2 120/73 mm[Hg] 12/31/2018 Height Weight BMI Blood Pressure 70 in 225 lbs 32.40 kg/m2 111/67 mm[Hg] 12/02/2018 Height Weight BMI Blood Pressure 70 in 226 lbs 6.08 oz 32.60 kg/m2 113/76 mm[H g] 11/19/2018 Height Weight BMI Blood Pressure 70 in 226 lbs 6.08 oz 32.60 kg/m2 98/68 mm[Hg ] 09/24/2018 Height Weight BMI Blood Pressure 70 in 232 lbs 33.41 kg/m2 114/69 mm[Hg] 09/17/2018 Height Weight BMI Blood Pressure 70 in 224 lbs 4 oz 32.29 kg/m2 114/73 mm[Hg] 09/10/2018 Height Weight BMI Blood Pressure 70 in 231 lbs 33.26 kg/m2 107/66 mm[Hg] 08/20/2018 Height Weight BMI Blood Pressure 70 in 230 lbs 33.12 kg/m2 109/74 mm[Hg]"
--- OUTSIDE RECORDS SUMMARY | 2021-04-26 15:33 | CCD ---
Author Organization Unknown Address [address] [place] [address] Phone [phone] Care Team Providers [employer] Employee Name Role Phone [facility] 129 [phone] Allergies Code Code System Name Reaction Severity [...] 11/04/2020 Pain in the Coccyx Active 11/12/2020 Procedures Date Name Performed by 07/02/2014 Knee [...] Sacrum + Coccyx, 2 or More View [facility] [address] [place] [address] (Work Place) Notes: Scoliosis, Degenerative disk dise ase, bulging disks | Scoliosis, Degenerative disk disease, bulging disks, fallopian tube removal, Results Lab Results Date Name Specimen Result Interpretation Description Value Range Status Address 05/18/2020 Cbc Normal White Blood Count 7.7 10 4.0-10. 0 10 Final [facility]: 0 [facility] Low Red Blood Count 3.92 10 4.00-5.40 10 [facility]: 0 [facility] Low Hemoglobin 11.6 g/dL 12.0-15.5 g/dL Final [facility]: 0 [facility] Normal Hematocrit 36.4 % 36.0-47.0 % [facility]: 0 [facility] Normal Mean Corpuscular Volume 92.9 fL 80.0 -96.0 fL [facility]: 830 [facility] Normal Mean Corpuscular Hemoglobin 29.6 pg 27.0-33.0 pg [facility]: 830 [facility] Low Mean Corpuscular HGB Conc 31.9 g/dL 32.0-36.5 g/dL [facility]: 830 [facility] Normal Red Cell Distribution Width 14.3 % 1 1.5-14.5 % [facility]: 830 [facility] Normal Platelet Count, Automated 228 10 150 -450 10 [facility]: 830 [facility] Normal Nucleated Red Blood Cell % 0.0 % 0- 0 % [facility]: 830 [facility] 05/18/2020 BMP, Serum or Plasma High Glucose, Fastin g 142 mg/dL 70-100 mg/dL [facility]: 83 0 [facility] Low Blood Urea Nitrogen 5 mg/dL 7-18 mg/ dL [facility]: 830 [facility] Normal Creatinine for GFR 0.73 mg/dL 0.55-1 .30 mg/dL [facility]: 0 [facility] Normal Glomerular Filtration Rate > 60.0 >6 0 [facility]: 830 [facility] Normal Sodium Level 141 mEq/L 136-145 mEq/L [facility]: 830 [facility] Normal Potassium Serum 3.6 mEq/L 3.5-5.1 mE q/L [facility]: 830 [facility] High Chloride Level 114 mEq/L 98-107 mEq/ L [facility]: 0 [facility] Normal Carbon Dioxide Level 22 mEq/L 21-32 mEq/L [facility]: 830 [facility] Low Anion Gap 5 mEq/L 8-16 mEq/L [facility]: 830 [facility] Low Calcium Level 8.0 mg/dL 8.5-10.1 mg/ dL [facility]: 830 [facility] 05/17/2020 Gas Panel, Arterial Blood Normal ABG pH (Ar terial) 7.375 units 7.350-7.450 units [facility]: 83 0 [facility] Normal ABG Partial Pressure CO2 37.6 mmHg 3 5.0-45.0 mmHg [facility]: 830 [facility] High ABG Partial Pressure O2 142.3 mmHg 7 5.0-100.0 mmHg [facility]: 830 [facility] Normal ABG Total CO2 22.6 mEq/L 22.0-29.0 m Eq/L [facility]: 830 [facility] Low Abg Hco3 21.5 mEq/L 22.0-26.0 mEq/L [facility]: 830 [facility] Low ABG Base Excess -3.3 -2.0-2.0 [place] [facility]: 830 [facility] Low ABG Standard HCO3 21.8 mEq/L 22.0-26 .0 mEq/L [facility]: 830 [facility] Normal ABG O2 Saturation 99.0 % 95.0-99.0 % [facility]: 830 [facility] 05/17/2020 Gas Panel, Arterial Blood Normal ABG pH (Ar terial) 7.354 units 7.350-7.450 units [facility]: 83 0 [facility] Normal ABG Partial Pressure CO2 38.2 mmHg 3 5.0-45.0 mmHg [facility]: 830 [facility] Normal ABG Partial Pressure O2 82.7 mmHg 75 .0-100.0 mmHg [facility]: 830 [facility] Normal ABG Total CO2 22.0 mEq/L 22.0-29.0 m Eq/L [facility]: 830 [facility] Low Abg Hco3 20.8 mEq/L 22.0-26.0 mEq/L [facility]: 830 [facility] Low ABG Base Excess -4.3 -2.0-2.0 [place] [facility]: 830 [facility] Low ABG Standard HCO3 20.9 mEq/L 22.0-26 .0 mEq/L [facility]: 830 [facility] Normal ABG O2 Saturation 96.2 % 95.0-99.0 % [facility]: 830 [facility] 05/17/2020 SARS CoV 2 RNA (COVID-19), QL, employment director-PCR, Respirat ory Specimen Normal Sars Covid-19 Amplification negative negative [facility]: 830 [facility] 05/17/2020 Ammonia High Ammonia 43 umol/L <32 umol/L Fi nal [facility]: 830 [facility] 05/17/2020 Lactic Acid, Serum or Plasma Normal Lactic Acid Sepsis Protocol 0.8 mmol/L 0.4-2.0 mmol/L [facility]: 830 [facility] 05/17/2020 Lipid Panel, Blood Normal Triglycerides Lev el 66 mg/dL <150 mg/dL [facility]: 83 0 [facility] Normal Cholesterol Level 109 mg/dL <200 mg/ dL [facility]: 830 [facility] Low HDL Cholesterol 28 mg/dL >40 mg/dL F inal [facility]: 830 [facility] Normal LDL Cholesterol 68 mg/dL <100 mg/dL [facility]: 830 [facility] Normal Non-hdl-c 81 mg/dL [facility]: 830 [facility] Normal Cholesterol Risk Ratio 3.892 <5 [facility]: 830 [facility] 05/17/2020 Thyroid Panel, Serum High T Uptake 42 % 30 -39 % [facility]: 830 [facility] Normal Thyroxine (T4) 10.2 ug/dL 4.5-12.0 u g/dL [facility]: 830 [facility] Normal Free Thyroxine Index 4.3 % 1.3-4.8 % [facility]: [address] [place] [address] Normal Thyroid Stimulating Hormone 2. 310 uIU/mL 0.358-3.740 uIU/mL [facility]: [address] [place] [address] 05/17/2020 CBC W/ Auto Diff Normal White Blood Count 8.4 10 4.0-10.0 10 [facility]: [address] [place] [address] Low Red Blood Count 3.69 10 4.00-5.40 10 [facility]: [address] [place] [address] Low Hemoglobin 10.6 g/dL 12.0-15.5 g/dL [facility]: [address] [place] [address] Low Hematocrit 34.3 % 36.0-47.0 % [facility]: [address] [place] [address] Normal Mean Corpuscular Volume 93.0 fL 80.0 -96.0 fL [facility]: [address] [place] [address] Normal Mean Corpuscular Hemoglobin 28.7 pg 27.0-33.0 pg [facility]: [address] [place] [address] Low Mean Corpuscular HGB Conc 30.9 g/dL 32.0-36.5 g/dL [facility]: [address] [place] [address] Normal Red Cell Distribution Width 14.2 % 1 1.5-14.5 % [facility]: [address] [place] [address] Normal Platelet Count, Automated 205 10 150 -450 10 [facility]: 0 [facility] Normal Neutrophils % 65.6 % 36.0-66.0 % [facility]: 0 [facility] Normal Lymph % 27.7 % 24.0-44.0 % [facility]: 830 [facility] Normal Yancey % 3.7 % 0.0-5.0 % [facility]: 0 [facility] Normal Eos % 2.1 % 0.0-3.0 % [facility]: 0 [facility] Normal Baso % 0.5 % 0.0-1.0 % [facility]: 830 [facility] Normal Immature Granulocyte % 0.4 % 0-3.0 % [facility]: 830 [facility] Normal Nucleated Red Blood Cell % 0.0 % 0- 0 % [facility]: 830 [facility] Normal Neutrophils # 5.5 10 1.5-8.5 10 [place] [facility]: 830 [facility] Normal Lymph # 2.3 10 1.5-5.0 10 [facility]: 830 [facility] Normal Yancey # 0.3 10 0.0-0.8 10 [facility]: 830 [facility] Normal Eos # 0.2 10 0.0-0.5 10 [facility]: 830 [facility] Normal Baso # 0.0 10 0.0-0.2 10 [facility]: 830 [facility] 05/17/2020 ESR (Erythrocyte Sedimentation Rate), Blood Nor mal Erythrocyte Sedimentation Rate 9 mm/HR 0-20 mm/HR [facility]: 830 [facility] 05/17/2020 HbA1C (Hemoglobin a1C), Blood Normal Hemogl obin a1C 5.1 % [facility]: 830 [facility] Normal Estimated Average Glucose 100 mg/dL 60-110 mg/dL [facility]: 830 [facility] 05/17/2020 CMP, Serum or Plasma Normal Glucose, Fastin g 82 mg/dL 70-100 mg/dL [facility]: 83 0 [facility] Low Blood Urea Nitrogen 6 mg/dL 7-18 mg/ dL [facility]: 0 [facility] Normal Creatinine for GFR 0.66 mg/dL 0.55-1 .30 mg/dL [facility]: 830 [facility] Normal Glomerular Filtration Rate > 60.0 >6 0 [facility]: 830 [facility] Normal Sodium Level 141 mEq/L 136-145 mEq/L [facility]: [address] [place] [address] Normal Potassium Serum 3.8 mEq/L 3.5-5.1 mE q/L [facility]: [address] [place] [address] High Chloride Level 114 mEq/L 98-107 mEq/ L [facility]: [address] [place] [address] Normal Carbon Dioxide Level 23 mEq/L 21-32 mEq/L [facility]: 0 [facility] Low Anion Gap 4 mEq/L 8-16 mEq/L [facility]: [address] [place] [address] Low Calcium Level 7.6 mg/dL 8.5-10.1 mg/ dL [facility]: [address] [place] [address] Low AST/SGOT 6 U/L 7-37 U/L [facility]: [address] [place] [address] Low ALT/SGPT 9 U/L 12-78 U/L [facility]: 0 [facility] Normal Alkaline Phosphatase 74 U/L 45-117 U /L [facility]: [address] [place] [address] Normal Bilirubin,total 0.2 mg/dL 0.2-1.0 mg /dL [facility]: [address] [place] [address] Panic Low Total Protein 5.4 gm/dL 6.4-8.2 g m/dL [facility]: [address] [place] [address] Panic Low Albumin 3.0 gm/dL 3.2-5.2 gm/dL F inal [facility]: [address] [place] [address] Normal Albumin/globulin Ratio 1.3 1.2-2. 2 [facility]: [address] [place] [address] 05/17/2020 Cardiovascular Assessment Panel, Serum Normal CPK Creatine Phosphokinase 129 U/L 26-192 U/L [facility]: [address] [place] [address] Normal CK-mb Value Mass < 1.0 NG/mL <3.6 NG /mL [facility]: 830 [facility] Normal mb/CK Relative Index 0.78 < or =4 Final [facility]: 830 [facility] Normal Troponin I < 0.02 NG/mL < 0.10 NG/mL Final [facility]: 830 [facility] 05/17/2020 Procalcitonin, Serum Normal Procalcitonin <0.0 5 [facility]: 830 [facility] 05/17/2020 C Reactive Protein, QN, Serum or Plasma Normal C Reactive Protein Quantitativ 0.30 mg/dL 0.00-0.30 mg/dL Final [facility]: 830 [facility] Past Encounters 03/02/2021 Low Back Pain; Vesicular Hand Eczema Ministerio Fagan MD: [address] [place] [phone], Ph. 02/14/2021 Chronic Depression; Mixed Anxiety and Depressive Disorder Janene Branham MD: [address] [place] [phone], Ph. 01/31/2021 Removal of Suture Ministerio Fagan MD: [address] [place] [phone], Ph. 12/08/2020 Backache Ministerio Fagan MD: [address] [place] [phone], Ph. 11/12/2020 Pain in the Coccyx Ministerio Fagan MD: [address] [place] [phone], Ph. 11/04/2020 Tobacco Dependence Caused by Cigarettes; Chronic Neck Pain; Low Back Pain; Backache Ministerio Fagan MD: [address] [place] [phone], Ph. 09/03/2020 Chronic Depression; Severe Recurrent Major Depression Ministerio Fagan MD: [address] [place] [phone], Ph. 06/02/2020 Shoulder Pain; Chronic Depression Ministerio Fagan MD: [address] [place] [phone], Ph. 05/26/2020 Chronic Depression Ministerio Fagan MD: [address] [place] [phone], Ph. 05/12/2020 Severe Recurrent Major Depression Melissa Kwok, [employer]-R: [address] [place] [address], Ph. 05/12/2020 Chronic Depression Ministerio Fagan MD: [address] [place] [phone], Ph. 04/22/2020 Chronic Low Back Pain Ministerio Fagan MD: [address] [place] [phone], Ph. Social History Tobacco Smoking Status Heavy Tobacco Smoker (1 pack per a da y) Vaccine List Vaccine Type influenza, injectable, quadrivalent, pre servative free 05/12/20200.5 mL Notes: pt has covid19 vaccines Plan of Care Reminders Provider Appointments None recorded. Lab None recorded. Referral None recorded. Procedures None recorded. Surgeries None recorded. Imaging None recorded. Vitals 03/02/2021 11:40AM ESTABLISHED [id number] Height Weight BMI Blood Pressure 70 in 189 lbs 6 oz 27.2 kg/m2 96/61 mm[Hg] 02/14/2021 01:00PM TELEPSYCH 60 Height 70 in 01/31/2021 11:00AM SAME DAY 20 Height Weight BMI Blood Pressure 70 in 191 lbs 4 oz 27.4 kg/m2 119/52 mm[Hg] 12/08/2020 01:20PM ESTABLISHED [id number] Height Weight BMI Blood Pressure 70 in 193 lbs 6 oz 27.7 kg/m2 96/61 mm[Hg] 11/12/2020 11:40AM ESTABLISHED [id number] Height Weight BMI Blood Pressure 70 in 195 lbs 4 oz 28 kg/m2 119/74 mm[Hg] 11/04/2020 01:40PM HOSPITAL DISCHARGE Height Weight BMI Blood Pressure 70 in 200 lbs 4 oz 28.7 kg/m2 102/66 mm[Hg] 09/03/2020 01:40PM ESTABLISHED [id number] Height Weight BMI Blood Pressure 70 in 208 lbs 8 oz 29.9 kg/m2 111/70 mm[Hg] 06/02/2020 02:00PM ESTABLISHED [id number] Height Weight BMI Blood Pressure 70 in 215 lbs 16 oz 31 kg/m2 102/64 mm[Hg] 05/26/2020 09:00AM PROVIDER REQUESTED Height Weight BMI Blood Pressure 70 in 220 lbs 9.6 oz 31.7 kg/m2 100/67 mm[Hg ] 05/12/2020 08:20AM ESTABLISHED [id number] Height Weight BMI Blood Pressure 70 in [...]
--- OUTSIDE RECORDS SUMMARY | 2021-04-26 15:33 | CCD ---
Author Organization Unknown Address [address] [place] [address] Phone [phone] Care Team Providers Care Race Relations Adviser Name Role Phone [facility] 129 [phone] Allergies Code Code System Name Reaction Severity [...] DAY NEEDED FOR BACK PAIN Completed 12/08/2020 ibuprofen 600 mg tablet TAKE ONE TABLET [...] FOR PAIN MAXIMUM DAILY DOSE 4 TABLETS Active Not available paroxetine 10 mg tablet TAKE ONE TABLET [...] Sacrum + Coccyx, 2 or More View [facility] [address] [place] [address] (Work Place) Notes: Scoliosis, Degenerative disk dise ase, bulging disks | Scoliosis, Degenerative disk disease, bulging disks, fallopian tube removal, Results Lab Results Date Name Specimen Result Interpretation Description Value Range Status Address 05/18/2020 Cbc Normal White Blood Count 7.7 10 4.0-10. [address] [facility]: [address] [place] [address] Low Red Blood Count 3.92 10 4.00-5.40 10 [facility]: 0 [facility] Low Hemoglobin 11.6 g/dL 12.0-15.5 g/dL [facility]: 0 [facility] Normal Hematocrit 36.4 % 36.0-47.0 % [facility]: 0 [facility] Normal Mean Corpuscular Volume 92.9 fL 80.0 -96.0 fL [facility]: 0 [facility] Normal Mean Corpuscular Hemoglobin 29.6 pg 27.0-33.0 pg [facility]: [address] [facility] Low Mean Corpuscular HGB Conc 31.9 g/dL 32.0-36.5 g/dL [facility]: [address] [facility] Normal Red Cell Distribution Width 14.3 % 1 1.5-14.5 % [facility]: [address] [facility] Normal Platelet Count, Automated 228 10 150 -450 10 [facility]: [address] [facility] Normal Nucleated Red Blood Cell % 0.0 % 0- 0 % [facility]: 0 [facility] 05/18/2020 BMP, Serum or Plasma High Glucose, Fastin g 142 mg/dL 70-100 mg/dL [facility]: 83 0 [facility] Low Blood Urea Nitrogen 5 mg/dL 7-18 mg/ dL [facility]: [address] [facility] Normal Creatinine for GFR 0.73 mg/dL 0.55-1 .30 mg/dL [facility]: [address] [facility] Normal Glomerular Filtration Rate > 60.0 >6 0 [facility]: [address] [facility] Normal Sodium Level 141 mEq/L 136-145 mEq/L [facility]: [address] [facility] Normal Potassium Serum 3.6 mEq/L 3.5-5.1 mE q/L [facility]: [address] [facility] High Chloride Level 114 mEq/L 98-107 mEq/ L [facility]: [address] [facility] Normal Carbon Dioxide Level 22 mEq/L 21-32 mEq/L [facility]: [address] [facility] Low Anion Gap 5 mEq/L 8-16 mEq/L [facility]: [address] [facility] Low Calcium Level 8.0 mg/dL 8.5-10.1 mg/ dL [facility]: [address] [facility] 05/17/2020 Gas Panel, Arterial Blood Normal ABG pH (Ar terial) 7.375 units 7.350-7.450 units [facility]: 83 0 [facility] Normal ABG Partial Pressure CO2 37.6 mmHg 3 5.0-45.0 mmHg [facility]: [address] [facility] High ABG Partial Pressure O2 142.3 mmHg 7 5.0-100.0 mmHg [facility]: [address] [facility] Normal ABG Total CO2 22.6 mEq/L 22.0-29.0 m Eq/L [facility]: [address] [facility] Low Abg Hco3 21.5 mEq/L 22.0-26.0 mEq/L [facility]: [address] [facility] Low ABG Base Excess -3.3 -2.0-2.0 [facility]: [address] [facility] Low ABG Standard HCO3 21.8 mEq/L 22.0-26 .0 mEq/L [facility]: [address] [facility] Normal ABG O2 Saturation 99.0 % 95.0-99.0 % [facility]: [address] [facility] 05/17/2020 Gas Panel, Arterial Blood Normal ABG pH (Ar terial) 7.354 units 7.350-7.450 units [facility]: 83 0 [facility] Normal ABG Partial Pressure CO2 38.2 mmHg 3 5.0-45.0 mmHg [facility]: 8[address] [facility] Normal ABG Partial Pressure O2 82.7 mmHg 75 .0-100.0 mmHg [facility]: [address] [facility] Normal ABG Total CO2 22.0 mEq/L 22.0-29.0 m Eq/L [facility]: [address] [facility] Low Abg Hco3 20.8 mEq/L 22.0-26.0 mEq/L [facility]: [address] [facility] Low ABG Base Excess -4.3 -2.0-2.0 [facility]: [address] [facility] Low ABG Standard HCO3 20.9 mEq/L 22.0-26 .0 mEq/L Final [facility]: [address] [facility] Normal ABG O2 Saturation 96.2 % 95.0-99.0 % [facility]: [address] [facility] 05/17/2020 SARS CoV 2 RNA (COVID-19), QL, oracle adf developer-PCR, Respirat ory Specimen Normal Sars Covid-19 Amplification negative negative [facility]: [address] [facility] 05/17/2020 Ammonia High Ammonia 43 umol/L <32 umol/L Fi nal [facility]: [address] [facility] 05/17/2020 Lactic Acid, Serum or Plasma Normal Lactic Acid Sepsis Protocol 0.8 mmol/L 0.4-2.0 mmol/L [facility]: [address] [facility] 05/17/2020 Lipid Panel, Blood Normal Triglycerides Lev el 66 mg/dL <150 mg/dL [facility]: 83 0 [facility] Normal Cholesterol Level 109 mg/dL <200 mg/ dL [facility]: [address] [facility] Low HDL Cholesterol 28 mg/dL >40 mg/dL F [facility]: [address] [facility] Normal LDL Cholesterol 68 mg/dL <100 mg/dL [facility]: [address] [facility] Normal Non-hdl-c 81 mg/dL [facility]: [address] [facility] Normal Cholesterol Risk Ratio 3.892 <5 [facility]: [address] [facility] 05/17/2020 Thyroid Panel, Serum High T Uptake 42 % 30 -39 % [facility]: [address] [facility] Normal Thyroxine (T4) 10.2 ug/dL 4.5-12.0 u g/dL [facility]: [address] [facility] Normal Free Thyroxine Index 4.3 % 1.3-4.8 % [facility]: [address] [facility] Normal Thyroid Stimulating Hormone 2. 310 uIU/mL 0.358-3.740 uIU/mL [facility]: [address] [place] [address] 05/17/2020 CBC W/ Auto Diff Normal White Blood Count 8.4 10 4.0-10.0 10 [facility]: [address] [place] [address] Low Red Blood Count 3.69 10 4.00-5.40 10 [facility]: [address] [place] [address] Low Hemoglobin 10.6 g/dL 12.0-15.5 g/dL [facility]: [address] [place] [address] Low Hematocrit 34.3 % 36.0-47.0 % [facility]: [address] [place] [address] Normal Mean Corpuscular Volume 93.0 fL 80.0 -96.0 fL [facility]: [address] [place] [address] Normal Mean Corpuscular Hemoglobin 28.7 pg 27.0-33.0 pg [facility]: [address] [place] [address] Low Mean Corpuscular HGB Conc 30.9 g/dL 32.0-36.5 g/dL [facility]: [address] [place] [address] Normal Red Cell Distribution Width 14.2 % 1 1.5-14.5 % [facility]: [address] [place] [address] Normal Platelet Count, Automated 205 10 150 -450 10 [facility]: 0 [facility] Normal Neutrophils % 65.6 % 36.0-66.0 % [facility]: [address] [facility] Normal Lymph % 27.7 % 24.0-44.0 % [facility]: [address] [facility] Normal [place] % 3.7 % 0.0-5.0 % [facility]: 0 [facility] Normal Eos % 2.1 % 0.0-3.0 % [facility]: [address] [facility] Normal Baso % 0.5 % 0.0-1.0 % [facility]: [address] [facility] Normal Immature Granulocyte % 0.4 % 0-3.0 % [facility]: [address] [facility] Normal Nucleated Red Blood Cell % 0.0 % 0- 0 % [facility]: [address] [facility] Normal Neutrophils # 5.5 10 1.5-8.[address] [facility]: [address] [facility] Normal Lymph # 2.3 10 1.5-5.0 10 [facility]: [address] [facility] Normal [place] # 0.3 10 0.0-0.8 10 [facility]: [address] [facility] Normal Eos # 0.2 10 0.0-0.5 10 [facility]: [address] [facility] Normal Baso # 0.0 10 0.0-0.2 10 [facility]: [address] [facility] 05/17/2020 ESR (Erythrocyte Sedimentation Rate), Blood Nor mal Erythrocyte Sedimentation Rate 9 mm/HR 0-20 mm/HR [facility]: [address] [facility] 05/17/2020 HbA1C (Hemoglobin a1C), Blood Normal Hemogl obin a1C 5.1 % [facility]: 0 [facility] Normal Estimated Average Glucose 100 mg/dL 60-110 mg/dL [facility]: 0 [facility] 05/17/2020 CMP, Serum or Plasma Normal Glucose, Fastin g 82 mg/dL 70-100 mg/dL [facility]: 83 0 [facility] Low Blood Urea Nitrogen 6 mg/dL 7-18 mg/ dL [facility]: 0 [facility] Normal Creatinine for GFR 0.66 mg/dL 0.55-1 .30 mg/dL [facility]: 0 [facility] Normal Glomerular Filtration Rate > 60.0 >6 0 [facility]: [address] [facility] Normal Sodium Level 141 mEq/L 136-145 mEq/L [facility]: [address] [place] [address] Normal Potassium Serum 3.8 mEq/L 3.5-5.1 mE q/L [facility]: [address] [place] [address] High Chloride Level 114 mEq/L 98-107 mEq/ L [facility]: [address] [place] [address] Normal Carbon Dioxide Level 23 mEq/L 21-32 mEq/L [facility]: [address] [place] [address] Low Anion Gap 4 mEq/L 8-16 mEq/L [facility]: [address] [place] [address] Low Calcium Level 7.6 mg/dL 8.5-10.1 mg/ dL [facility]: [address] [place] [address] Low AST/SGOT 6 U/L 7-37 U/L [facility]: [address] [place] [address] Low ALT/SGPT 9 U/L 12-78 U/L [facility]: [address] [place] [address] Normal Alkaline Phosphatase 74 U/L 45-117 U /L [facility]: [address] [place] [address] Normal Bilirubin,total 0.2 mg/dL 0.2-1.0 mg /dL [facility]: [address] [place] [address] Panic Low Total Protein 5.4 gm/dL 6.4-8.2 g m/dL [facility]: [address] [place] [address] Panic Low Albumin 3.0 gm/dL 3.2-5.2 gm/dL F inal [facility]: [address] [place] [address] Normal Albumin/globulin Ratio 1.3 1.2-2. 2 [facility]: [address] [place] [address] 05/17/2020 Cardiovascular Assessment Panel, Serum Normal CPK Creatine Phosphokinase 129 U/L 26-192 U/L [facility]: [address] [place] [address] Normal CK-mb Value Mass < 1.0 NG/mL <3.6 NG /mL [facility]: [address] [place] [address] Normal mb/CK Relative Index 0.78 < or =4 [facility]: [address] [facility] Normal Troponin I < 0.02 NG/mL < 0.10 NG/mL Final [facility]: [address] [facility] 05/17/2020 Procalcitonin, Serum Normal Procalcitonin <0.[address] [facility]: [address] [facility] 05/17/2020 C Reactive Protein, QN, Serum or Plasma Normal C Reactive Protein Quantitativ 0.30 mg/dL 0.00-0.30 mg/dL Final [facility]: [address] [facility] Past Encounters 01/31/2021 Removal of Suture Ministerio Fagan MD: [address] [place] [address], Ph. 12/08/2020 Backache Ministerio Fagan MD: [address] [place] [phone], Ph. 11/12/2020 Pain in the Coccyx Ministerio Fagan MD: [address] [place] [address], Ph. 11/04/2020 Tobacco Dependence Caused by Cigarettes; Chronic Neck Pain; Low Back Pain; Backache Ministerio Fagan MD: [address] [place] [address], Ph. 09/03/2020 Chronic Depression; Severe Recurrent Major Depression Ministerio Fagan MD: [address] [place] [address], Ph. 06/02/2020 Shoulder Pain; Chronic Depression Ministerio Fagan MD: [address] [place] [address], Ph. 05/26/2020 Chronic Depression Ministerio Fagan MD: [address] [place] [address], Ph. 05/12/2020 Severe Recurrent Major Depression Melissa Kwok, [employer] TECHNICIAN-R: [address] [place] [address], Ph. 05/12/2020 Chronic Depression Ministerio Fagan MD: [address] [place] [address], Ph. 04/22/2020 Chronic Low Back Pain Ministerio Fagan MD: [address] [place] [address], Ph. Social History Tobacco Smoking Status Heavy Tobacco Smoker (1 pack per a da y) Vaccine List Vaccine Type influenza, injectable, quadrivalent, pre servative free 05/12/20200.5 mL Plan of Care Reminders Provider Appointments None recorded. Lab None recorded. Referral None recorded. Procedures None recorded. Surgeries None recorded. Imaging None recorded. Vitals 01/31/2021 11:00AM SAME DAY 20 Height Weight BMI Blood Pressure 70 in 191 lbs 4 oz 27.4 kg/m2 119/52 mm[Hg] 12/08/2020 01:20PM ESTABLISHED [id number] Height Weight BMI Blood Pressure 70 in 193 lbs 6 oz 27.7 kg/m2 96/61 mm[Hg] 11/12/2020 11:40AM ESTABLISHED [id number] Height Weight BMI Blood Pressure 70 in 195 lbs 4 oz 28 kg/m2 119/74 mm[Hg] 11/04/2020 01:40PM HOSPITAL DISCHARGE Height Weight BMI Blood Pressure 70 in 200 lbs 4 oz 28.7 kg/m2 102/66 mm[Hg] 09/03/2020 01:40PM ESTABLISHED [id number] Height Weight BMI Blood Pressure 70 in 208 lbs 8 oz 29.9 kg/m2 111/70 mm[Hg] 06/02/2020 02:00PM ESTABLISHED [id number] Height Weight BMI Blood Pressure 70 in 215 lbs 16 oz 31 kg/m2 102/64 mm[Hg] 05/26/2020 09:00AM PROVIDER REQUESTED Height Weight BMI Blood Pressure 70 in 220 lbs 9.6 oz 31.7 kg/m2 100/67 mm[Hg ] 05/12/2020 08:20AM ESTABLISHED [id number] Height Weight BMI Blood Pressure 70 in [...]
--- OUTSIDE RECORDS SUMMARY | 2021-04-26 15:33 | CCD ---
Author Organization Unknown Address [address] [place] [address] Phone [phone] Care Team Providers Care Cold Type Artist Name Role Phone [facility] 129 [phone] Allergies Code Code System Name Reaction Severity [...] 12/08/2020 ketorolac 10 mg tablet Completed 0 Lexapro 10 mg tablet Take 1 tablet every day by oral route in the morning for 30 days. Active 02/14/2021 Not available lidocaine 5 % topical patch Completed 05/03 [...] Tobacco Dependence Caused by Cigarettes Active 12/03/19 19 History Increased Frequency of Urination Active 12/31/2018 [...] Sacrum + Coccyx, 2 or More View [facility] [address] [place] [address] (Work Place) Notes: Scoliosis, Degenerative disk dise ase, bulging disks | Scoliosis, Degenerative disk disease, bulging disks, fallopian tube removal, Results Lab Results Date Name Specimen Result Interpretation Description Value Range Status Address 05/18/2020 Cbc Normal White Blood Count 7.7 10 4.0-10. 0 10 Final [facility]: 0 [facility] Low Red Blood Count 3.92 10 4.00-5.40 10 Final [facility]: 0 [facility] Low Hemoglobin 11.6 g/dL 12.0-15.5 g/dL Final [facility]: 0 [facility] Normal Hematocrit 36.4 % 36.0-47.0 % Final [facility]: 0 [facility] Normal Mean Corpuscular Volume 92.9 fL 80.0 -96.0 fL [facility]: [address] [facility] Normal Mean Corpuscular Hemoglobin 29.6 pg 27.0-33.0 pg [facility]: [address] [facility] Low Mean Corpuscular HGB Conc 31.9 g/dL 32.0-36.5 g/dL [facility]: [address] [facility] Normal Red Cell Distribution Width 14.3 % 1 1.5-14.5 % [facility]: [address] [facility] Normal Platelet Count, Automated 228 10 150 -450 10 [facility]: [address] [facility] Normal Nucleated Red Blood Cell % 0.0 % 0- 0 % [facility]: [address] [facility] 05/18/2020 BMP, Serum or Plasma High Glucose, Fastin g 142 mg/dL 70-100 mg/dL [facility]: 83 0 [facility] Low Blood Urea Nitrogen 5 mg/dL 7-18 mg/ dL [facility]: 0 [facility] Normal Creatinine for GFR 0.73 mg/dL 0.55-1 .30 mg/dL [facility]: 0 [facility] Normal Glomerular Filtration Rate > 60.0 >6 0 [facility]: [address] [facility] Normal Sodium Level 141 mEq/L 136-145 mEq/L [facility]: [address] [facility] Normal Potassium Serum 3.6 mEq/L 3.5-5.1 mE q/L [facility]: [address] [facility] High Chloride Level 114 mEq/L 98-107 mEq/ L [facility]: 0 [facility] Normal Carbon Dioxide Level 22 mEq/L 21-32 mEq/L [facility]: 0 [facility] Low Anion Gap 5 mEq/L 8-16 mEq/L [facility]: 0 [facility] Low Calcium Level 8.0 mg/dL 8.5-10.1 mg/ dL [facility]: [address] [facility] 05/17/2020 Gas Panel, Arterial Blood Normal ABG pH (Ar terial) 7.375 units 7.350-7.450 units [facility]: 83 0 [facility] Normal ABG Partial Pressure CO2 37.6 mmHg 3 5.0-45.0 mmHg [facility]: [address] [facility] High ABG Partial Pressure O2 142.3 mmHg 7 5.0-100.0 mmHg [facility]: [address] [facility] Normal ABG Total CO2 22.6 mEq/L 22.0-29.0 m Eq/L [facility]: [address] [facility] Low Abg Hco3 21.5 mEq/L 22.0-26.0 mEq/L [facility]: [address] [facility] Low ABG Base Excess -3.3 -2.0-2.0 [facility]an[facility] l [facility]: [address] [facility] Low ABG Standard HCO3 21.8 mEq/L 22.0-26 .0 mEq/L [facility]: [address] [facility] Normal ABG O2 Saturation 99.0 % 95.0-99.0 % [facility]: [address] [facility] 05/17/2020 Gas Panel, Arterial Blood Normal ABG pH (Ar terial) 7.354 units 7.350-7.450 units [facility]: 83 0 [facility] Normal ABG Partial Pressure CO2 38.2 mmHg 3 5.0-45.0 mmHg [facility]: [address] [facility] Normal ABG Partial Pressure O2 82.7 mmHg 75 .0-100.0 mmHg [facility]: [address] [facility] Normal ABG Total CO2 22.0 mEq/L 22.0-29.0 m Eq/L [facility]: [address] [facility] Low Abg Hco3 20.8 mEq/L 22.0-26.0 mEq/L [facility]: [address] [facility] Low ABG Base Excess -4.3 -2.0-2.0 [facility]an[facility] l [facility]: [address] [facility] Low ABG Standard HCO3 20.9 mEq/L 22.0-26 .0 mEq/L [facility]: [address] [facility] Normal ABG O2 Saturation 96.2 % 95.0-99.0 % [facility]: [address] [facility] 05/17/2020 SARS CoV 2 RNA (COVID-19), QL, scrap breaker-PCR, Respirat ory Specimen Normal Sars Covid-19 Amplification negative negative [facility]: [address] [facility] 05/17/2020 Ammonia High Ammonia 43 umol/L <32 umol/L Fi nal [facility]: [address] [facility] 05/17/2020 Lactic Acid, Serum or Plasma Normal Lactic Acid Sepsis Protocol 0.8 mmol/L 0.4-2.0 mmol/L [facility]: [address] [facility] 05/17/2020 Lipid Panel, Blood Normal Triglycerides Lev el 66 mg/dL <150 mg/dL [facility]: 83 0 [facility] Normal Cholesterol Level 109 mg/dL <200 mg/ dL [facility]: [address] [facility] Low HDL Cholesterol 28 mg/dL >40 mg/dL F inal [facility]: [address] [facility] Normal LDL Cholesterol 68 mg/dL <100 mg/dL [facility]: [address] [facility] Normal Non-hdl-c 81 mg/dL [facility]: [address] [facility] Normal Cholesterol Risk Ratio 3.892 <5 [facility]: [address] [facility] 05/17/2020 Thyroid Panel, Serum High T Uptake 42 % 30 -39 % [facility]: [address] [facility] Normal Thyroxine (T4) 10.2 ug/dL 4.5-12.0 u g/dL [facility]: [address] [facility] Normal Free Thyroxine Index 4.3 % 1.3-4.8 % [facility]: [address] [place] [address] Normal Thyroid Stimulating Hormone 2. 310 uIU/mL 0.358-3.740 uIU/mL [facility]: [address] [place] [address] 05/17/2020 CBC W/ Auto Diff Normal White Blood Count 8.4 10 4.0-10.0 10 [facility]: [address] [place] [address] Low Red Blood Count 3.69 10 4.00-5.40 10 [facility]: [address] [place] [address] Low Hemoglobin 10.6 g/dL 12.0-15.5 g/dL [facility]: [address] [place] [address] Low Hematocrit 34.3 % 36.0-47.0 % [facility]: [address] [place] [address] Normal Mean Corpuscular Volume 93.0 fL 80.0 -96.0 fL [facility]: [address] [place] [address] Normal Mean Corpuscular Hemoglobin 28.7 pg 27.0-33.0 pg [facility]: [address] [place] [address] Low Mean Corpuscular HGB Conc 30.9 g/dL 32.0-36.5 g/dL [facility]: [address] [place] [address] Normal Red Cell Distribution Width 14.2 % 1 1.5-14.5 % [facility]: [address] [place] [address] Normal Platelet Count, Automated 205 10 150 -450 10 [facility]: 0 [facility] Normal Neutrophils % 65.6 % 36.0-66.0 % [facility]: [address] [facility] Normal Lymph % 27.7 % 24.0-44.0 % [facility]: [address] [facility] Normal Nash % 3.7 % 0.0-5.0 % [facility]: [address] [facility] Normal Eos % 2.1 % 0.0-3.0 % [facility]: [address] [facility] Normal Baso % 0.5 % 0.0-1.0 % [facility]: [address] [facility] Normal Immature Granulocyte % 0.4 % 0-3.0 % [facility]: [address] [facility] Normal Nucleated Red Blood Cell % 0.0 % 0- 0 % [facility]: [address] [facility] Normal Neutrophils # 5.5 10 1.5-8.5 10 [facility]anah l [facility]: [address] [facility] Normal Lymph # 2.3 10 1.5-5.0 10 [facility]: [address] [facility] Normal Nash # 0.3 10 0.0-0.8 10 [facility]: [address] [facility] Normal Eos # 0.2 10 0.0-0.5 10 [facility]: [address] [facility] Normal Baso # 0.0 10 0.0-0.2 10 [facility]: [address] [facility] 05/17/2020 ESR (Erythrocyte Sedimentation Rate), Blood Nor mal Erythrocyte Sedimentation Rate 9 mm/HR 0-20 mm/HR [facility]: [address] [facility] 05/17/2020 HbA1C (Hemoglobin a1C), Blood Normal Hemogl obin a1C 5.1 % [facility]: [address] [facility] Normal Estimated Average Glucose 100 mg/dL 60-110 mg/dL [facility]: [address] [facility] 05/17/2020 CMP, Serum or Plasma Normal Glucose, Fastin g 82 mg/dL 70-100 mg/dL [facility]: 83 0 [facility] Low Blood Urea Nitrogen 6 mg/dL 7-18 mg/ dL [facility]: 0 [facility] Normal Creatinine for GFR 0.66 mg/dL 0.55-1 .30 mg/dL [facility]: [address] [facility] Normal Glomerular Filtration Rate > 60.0 >6 0 [facility]: [address] [facility] Normal Sodium Level 141 mEq/L 136-145 mEq/L [facility]: 0 [facility] Normal Potassium Serum 3.8 mEq/L 3.5-5.1 mE q/L [facility]: [address] [facility] High Chloride Level 114 mEq/L 98-107 mEq/ L [facility]: 0 [facility] Normal Carbon Dioxide Level 23 mEq/L 21-32 mEq/L [facility]: [address] [facility] Low Anion Gap 4 mEq/L 8-16 mEq/L [facility]: [address] [place] [address] Low Calcium Level 7.6 mg/dL 8.5-10.1 mg/ dL [facility]: [address] [place] [address] Low AST/SGOT 6 U/L 7-37 U/L [facility]: 0 [facility] Low ALT/SGPT 9 U/L 12-78 U/L [facility]: [address] [facility] Normal Alkaline Phosphatase 74 U/L 45-117 U /L [facility]: 0 [facility] Normal Bilirubin,total 0.2 mg/dL 0.2-1.0 mg /dL [facility]: 0 [facility] Panic Low Total Protein 5.4 gm/dL 6.4-8.2 g m/dL [facility]: [address] [place] [address] Panic Low Albumin 3.0 gm/dL 3.2-5.2 gm/dL F inal [facility]: 0 [facility] Normal Albumin/globulin Ratio 1.3 1.2-2. 2 [facility]: [address] [place] [address] 05/17/2020 Cardiovascular Assessment Panel, Serum Normal CPK Creatine Phosphokinase 129 U/L 26-192 U/L [facility]: [address] [place] [address] Normal CK-mb Value Mass < 1.0 NG/mL <3.6 NG /mL [facility]: [address] [facility] Normal mb/CK Relative Index 0.78 < or =4 Final [facility]: [address] [facility] Normal Troponin I < 0.02 NG/mL < 0.10 NG/mL Final [facility]: [address] [facility] 05/17/2020 Procalcitonin, Serum Normal Procalcitonin <0.0 5 [facility]: [address] [facility] 05/17/2020 C Reactive Protein, QN, Serum or Plasma Normal C Reactive Protein Quantitativ 0.30 mg/dL 0.00-0.30 mg/dL Final [facility]: [address] [facility] Past Encounters 02/14/2021 Chronic Depression; Mixed Anxiety and Depressive Disorder Janene Branham MD: [address] [place] [phone], Ph. 01/31/2021 Removal of Suture Ministerio Fagan MD: [address] [place] [phone], Ph. 12/08/2020 Backache Ministerio Fagan MD: [address] [place] [phone], Ph. 11/12/2020 Pain in the Coccyx Ministerio Fagan MD: [address] [place] [phone], Ph. 11/04/2020 Tobacco Dependence Caused by Cigarettes; Chronic Neck Pain; Low Back Pain; Backache Ministerio Fagan MD: [address] [place] [phone], Ph. 09/03/2020 Chronic Depression; Severe Recurrent Major Depression Ministerio Fagan MD: [address] [place] [phone], Ph. 06/02/2020 Shoulder Pain; Chronic Depression Ministerio Fagan MD: [address] [place] [phone], Ph. 05/26/2020 Chronic Depression Ministerio Fagan MD: [address] [place] [phone], Ph. 05/12/2020 Severe Recurrent Major Depression Melissa KwokRANDALW-R: [address] [place] [phone], Ph. 05/12/2020 Chronic Depression Ministerio Fagan MD: [address] [place] [phone], Ph. 04/22/2020 Chronic Low Back Pain Ministerio Fagan MD: [address] [place] [phone], Ph. Social History Tobacco Smoking Status Heavy Tobacco Smoker (1 pack per a da y) Vaccine List Vaccine Type influenza, injectable, quadrivalent, pre servative free 05/12/20200.5 mL Plan of Care Reminders Provider Appointments None recorded. Lab None recorded. Referral None recorded. Procedures None recorded. Surgeries None recorded. Imaging None recorded. Vitals 02/14/2021 01:00PM TELEPSYCH 60 Height 70 in 01/31/2021 11:00AM SAME DAY 20 Height Weight BMI Blood Pressure 70 in 191 lbs 4 oz 27.4 kg/m2 119/52 mm[Hg] 12/08/2020 01:20PM ESTABLISHED [id number] Height Weight BMI Blood Pressure 70 in 193 lbs 6 oz 27.7 kg/m2 96/61 mm[Hg] 11/12/2020 11:40AM ESTABLISHED [id number] Height Weight BMI Blood Pressure 70 in 195 lbs 4 oz 28 kg/m2 119/74 mm[Hg] 11/04/2020 01:40PM HOSPITAL DISCHARGE Height Weight BMI Blood Pressure 70 in 200 lbs 4 oz 28.7 kg/m2 102/66 mm[Hg] 09/03/2020 01:40PM ESTABLISHED [id number] Height Weight BMI Blood Pressure 70 in 208 lbs 8 oz 29.9 kg/m2 111/70 mm[Hg] 06/02/2020 02:00PM ESTABLISHED [id number] Height Weight BMI Blood Pressure 70 in 215 lbs 16 oz 31 kg/m2 102/64 mm[Hg] 05/26/2020 09:00AM PROVIDER REQUESTED Height Weight BMI Blood Pressure 70 in 220 lbs 9.6 oz 31.7 kg/m2 100/67 mm[Hg ] 05/12/2020 08:20AM ESTABLISHED [id number] Height Weight BMI Blood Pressure 70 in [...]
--- OUTSIDE RECORDS SUMMARY | 2021-04-26 15:33 | CCD ---
Author Organization Unknown Address [address] [place] [address] Phone [phone] Care Team Providers Care Project Management Intern Name Role Phone [facility] 129 [phone] Allergies Code Code System Name Reaction Severity [...] Completed 05/26/2020 naproxen 500 mg tablet Completed omeprazole 40 mg capsule,delayed release TAKE ONE CAPSULE BY MOUTH TWICE A DAY Active N ot available oxycodone-acetaminophen 5 mg-325 mg tabl et TAKE ONE TABLET BY MOUTH EVERY 12 HOURS NEEDED FOR PAIN MAXIMUM DAILY DOSE 4 TABLETS Completed 02/14/2021 paroxetine 10 mg tablet TAKE ONE TABLET BY MOUTH EVERY DAY Completed 03/2021 prednisone 20 mg tablet Completed 04/22/20 tizanidine 4 mg capsule Completed 04/22/20 trazodone 50 mg tablet TAKE ONE TABLET [...] Sacrum + Coccyx, [address] [facility] [address] [place] [address] (Work Place) Notes: Scoliosis, Degenerative disk dise ase, bulging disks | Scoliosis, Degenerative disk disease, bulging disks, fallopian tube removal, Results Lab Results Date Name Specimen Result Interpretation Description Value Range Status Address 05/18/2020 Cbc Normal White Blood Count 7.7 10 4.0-10. 0 10 Final [facility]: 0 [facility] Low Red Blood Count 3.92 10 4.00-5.40 10 [facility]: 0 [facility] Low Hemoglobin 11.6 g/dL 12.0-15.5 g/dL [facility]: 0 [facility] Normal Hematocrit 36.4 % 36.0-47.0 % [facility]: 0 [facility] Normal Mean Corpuscular Volume 92.9 fL 80.0 -96.0 fL [facility]: 0 [facility] Normal Mean Corpuscular Hemoglobin 29.6 pg 27.0-33.0 pg [facility]: [address] [facility] Low Mean Corpuscular HGB Conc 31.9 g/dL 32.0-36.5 g/dL [facility]: [address] [facility] Normal Red Cell Distribution Width 14.3 % 1 1.5-14.5 % [facility]: [address] [facility] Normal Platelet Count, Automated 228 10 150 -450 10 [facility]: [address] [facility] Normal Nucleated Red Blood Cell % 0.0 % 0- 0 % [facility]: 0 [facility] 05/18/2020 BMP, Serum or Plasma High Glucose, Fastin g 142 mg/dL 70-100 mg/dL [facility]: 83 0 [facility] Low Blood Urea Nitrogen 5 mg/dL 7-18 mg/ dL [facility]: 0 [facility] Normal Creatinine for GFR 0.73 mg/dL 0.55-1 .30 mg/dL [facility]: [address] [facility] Normal Glomerular Filtration Rate > 60.0 >6 0 [facility]: [address] [facility] Normal Sodium Level 141 mEq/L 136-145 mEq/L [facility]: [address] [facility] Normal Potassium Serum 3.6 mEq/L 3.5-5.1 mE q/L [facility]: [address] [facility] High Chloride Level 114 mEq/L 98-107 mEq/ L [facility]: [address] [facility] Normal Carbon Dioxide Level 22 mEq/L 21-32 mEq/L [facility]: 0 [facility] Low Anion Gap 5 mEq/L 8-16 mEq/L [facility]: [address] [facility] Low Calcium Level 8.0 mg/dL 8.5-10.1 mg/ dL [facility]: [address] [facility] 05/17/2020 Gas Panel, Arterial Blood Normal ABG pH (Ar terial) 7.375 units 7.350-7.450 units [facility]: 83 0 [facility] Normal ABG Partial Pressure CO2 37.6 mmHg 3 5.0-45.0 mmHg [facility]: [address] [facility] High ABG Partial Pressure O2 142.3 mmHg 7 5.0-100.0 mmHg [facility]: [address] [facility] Normal ABG Total CO2 22.6 mEq/L 22.0-29.0 m Eq/L [facility]: [address] [facility] Low Abg Hco3 21.5 mEq/L 22.0-26.0 mEq/L [facility]: [address] [facility] Low ABG Base Excess -3.3 -2.0-2.0 [facility]: [address] [facility] Low ABG Standard HCO3 21.8 mEq/L 22.0-26 .0 mEq/L [facility]: [address] [facility] Normal ABG O2 Saturation 99.0 % 95.0-99.0 % [facility]: [address] [facility] 05/17/2020 Gas Panel, Arterial Blood Normal ABG pH (Ar terial) 7.354 units 7.350-7.450 units [facility]: 83 0 [facility] Normal ABG Partial Pressure CO2 38.2 mmHg 3 5.0-45.0 mmHg [facility]: [address] [facility] Normal ABG Partial Pressure O2 82.7 mmHg 75 .0-100.0 mmHg [facility]: [address] [facility] Normal ABG Total CO2 22.0 mEq/L 22.0-29.0 m Eq/L [facility]: [address] [facility] Low Abg Hco3 20.8 mEq/L 22.0-26.0 mEq/L [facility]: [address] [facility] Low ABG Base Excess -4.3 -2.0-2.0 [facility]: [address] [facility] Low ABG Standard HCO3 20.9 mEq/L 22.0-26 .0 mEq/L [facility]: [address] [facility] Normal ABG O2 Saturation 96.2 % 95.0-99.0 % [facility]: [address] [facility] 05/17/2020 SARS CoV 2 RNA (COVID-19), QL, buncher hand-PCR, Respirat ory Specimen Normal Sars Covid-19 Amplification negative negative [facility]: [address] [facility] 05/17/2020 Ammonia High Ammonia 43 umol/L <32 umol/L Fi nal [facility]: [address] [facility] 05/17/2020 Lactic Acid, Serum or Plasma Normal Lactic Acid Sepsis Protocol 0.8 mmol/L 0.4-2.0 mmol/L [facility]: [address] [facility] 05/17/2020 Lipid Panel, Blood Normal Triglycerides Lev el 66 mg/dL <150 mg/dL [facility]: 83 0 [facility] Normal Cholesterol Level 109 mg/dL <200 mg/ dL [facility]: [address] [facility] Low HDL Cholesterol 28 mg/dL >40 mg/dL F inal [facility]: [address] [facility] Normal LDL Cholesterol 68 mg/dL <100 mg/dL [facility]: [address] [facility] Normal Non-hdl-c 81 mg/dL [facility]: [address] [facility] Normal Cholesterol Risk Ratio 3.892 <5 [facility]: [address] [facility] 05/17/2020 Thyroid Panel, Serum High T Uptake 42 % 30 -39 % [facility]: [address] [facility] Normal Thyroxine (T4) 10.2 ug/dL 4.5-12.0 u g/dL [facility]: [address] [facility] Normal Free Thyroxine Index 4.3 % 1.3-4.8 % [facility]: [address] [facility] Normal Thyroid Stimulating Hormone 2. 310 uIU/mL 0.358-3.740 uIU/mL [facility]: [address] [place] [address] 05/17/2020 CBC W/ Auto Diff Normal White Blood Count 8.4 10 4.0-10.0 10 [facility]: [address] [facility] Low Red Blood Count 3.69 10 4.00-5.40 10 [facility]: [address] [facility] Low Hemoglobin 10.6 g/dL 12.0-15.5 g/dL [facility]: [address] [place] [address] Low Hematocrit 34.3 % 36.0-47.0 % [facility]: [address] [place] [address] Normal Mean Corpuscular Volume 93.0 fL 80.0 -96.0 fL [facility]: [address] [place] [address] Normal Mean Corpuscular Hemoglobin 28.7 pg 27.0-33.0 pg [facility]: [address] [place] [address] Low Mean Corpuscular HGB Conc 30.9 g/dL 32.0-36.5 g/dL [facility]: 0 [facility] Normal Red Cell Distribution Width 14.2 % 1 1.5-14.5 % [facility]: [address] [place] [address] Normal Platelet Count, Automated 205 10 150 -450 10 [facility]: 0 [facility] Normal Neutrophils % 65.6 % 36.0-66.0 % [facility]: [address] [facility] Normal Lymph % 27.7 % 24.0-44.0 % [facility]: [address] [facility] Normal [place] % 3.7 % 0.0-5.0 % [facility]: [address] [facility] Normal Eos % 2.1 % 0.0-3.0 % [facility]: [address] [facility] Normal Baso % 0.5 % 0.0-1.0 % [facility]: [address] [facility] Normal Immature Granulocyte % 0.4 % 0-3.0 % [facility]: [address] [facility] Normal Nucleated Red Blood Cell % 0.0 % 0- 0 % [facility]: [address] [facility] Normal Neutrophils # 5.5 10 1.5-8.5 10 [facility]: [address] [facility] Normal Lymph # 2.3 10 1.5-5.0 10 [facility]: [address] [facility] Normal [place] # 0.3 10 0.0-0.8 10 [facility]: [address] [facility] Normal Eos # 0.2 10 0.0-0.5 10 [facility]: [address] [facility] Normal Baso # 0.0 10 0.0-0.2 10 [facility]: [address] [facility] 05/17/2020 ESR (Erythrocyte Sedimentation Rate), Blood Nor mal Erythrocyte Sedimentation Rate 9 mm/HR 0-20 mm/HR [facility]: [address] [facility] 05/17/2020 HbA1C (Hemoglobin a1C), Blood Normal Hemogl obin a1C 5.1 % [facility]: [address] [facility] Normal Estimated Average Glucose 100 mg/dL 60-110 mg/dL [facility]: [address] [facility] 05/17/2020 CMP, Serum or Plasma Normal Glucose, Fastin g 82 mg/dL 70-100 mg/dL [facility]: 83 0 [facility] Low Blood Urea Nitrogen 6 mg/dL 7-18 mg/ dL [facility]: 0 [facility] Normal Creatinine for GFR 0.66 mg/dL 0.55-1 .30 mg/dL [facility]: [address] [facility] Normal Glomerular Filtration Rate > 60.0 >6 0 [facility]: [address] [facility] Normal Sodium Level 141 mEq/L 136-145 mEq/L [facility]: [address] [facility] Normal Potassium Serum 3.8 mEq/L 3.5-5.1 mE q/L [facility]: 0 [facility] High Chloride Level 114 mEq/L 98-107 mEq/ L [facility]: [address] [place] [address] Normal Carbon Dioxide Level 23 mEq/L 21-32 mEq/L [facility]: [address] [place] [address] Low Anion Gap 4 mEq/L 8-16 mEq/L [facility]: 0 [facility] Low Calcium Level 7.6 mg/dL 8.5-10.1 mg/ dL [facility]: 0 [facility] Low AST/SGOT 6 U/L 7-37 U/L [facility]: [address] [place] [address] Low ALT/SGPT 9 U/L 12-78 U/L [facility]: 0 [facility] Normal Alkaline Phosphatase 74 U/L 45-117 U /L [facility]: [address] [place] [address] Normal Bilirubin,total 0.2 mg/dL 0.2-1.0 mg /dL [facility]: [address] [place] [address] Panic Low Total Protein 5.4 gm/dL 6.4-8.2 g m/dL [facility]: [address] [place] [address] Panic Low Albumin 3.0 gm/dL 3.2-5.2 gm/dL F inal [facility]: [address] [place] [address] Normal Albumin/globulin Ratio 1.3 1.2-2. 2 [facility]: [address] [place] [address] 05/17/2020 Cardiovascular Assessment Panel, Serum Normal CPK Creatine Phosphokinase 129 U/L 26-192 U/L [facility] Center: [address] [place] [address] Normal CK-mb Value Mass < 1.0 NG/mL <3.6 NG /mL [facility]: [address] [place] [address] Normal mb/CK Relative Index 0.78 < or =4 [facility]: [address] [facility] Normal Troponin I < 0.02 NG/mL < 0.10 NG/mL [facility]: [address] [facility] 05/17/2020 Procalcitonin, Serum Normal Procalcitonin <0.0 5 [facility]: [address] [facility] 05/17/2020 C Reactive Protein, QN, Serum or Plasma Normal C Reactive Protein Quantitativ 0.30 mg/dL 0.00-0.30 mg/dL [facility]: [address] [facility] Past Encounters 02/14/2021 Chronic Depression; Mixed Anxiety and Depressive Disorder Janene Branham MD: [address] [place] [phone], Ph. 01/31/2021 Removal of Suture Ministerio Fagan MD: [address] [place] [phone], Ph. 12/08/2020 Backache Ministerio Fagan MD: [address] [place] [phone], Ph. 11/12/2020 Pain in the Coccyx Ministerio Fagan MD: [address] [place] [phone], Ph. 11/04/2020 Tobacco Dependence Caused by Cigarettes; Chronic Neck Pain; Low Back Pain; Backache Ministerio Fagan MD: [address] [place] [phone], Ph. 09/03/2020 Chronic Depression; Severe Recurrent Major Depression Ministerio Fagan MD: [address] [place] [phone], Ph. 06/02/2020 Shoulder Pain; Chronic Depression Ministerio Fagan MD: [address] [place] [phone], Ph. 05/26/2020 Chronic Depression Ministerio Fagan MD: [address] [place] [phone], Ph. 05/12/2020 Severe Recurrent Major Depression Melissa Kwok, EDITORIAL ASSISTANT-R: [address] [place] [phone], Ph. 05/12/2020 Chronic Depression Ministerio Fagan MD: [address] [place] [phone], Ph. 04/22/2020 Chronic Low Back Pain Ministerio Fagan MD: [address] [place] [phone], Ph. Social History Tobacco Smoking Status Heavy [...] 27.4 kg/m2 119/52 mm[Hg] 12/08/2020 01:20PM ESTABLISHED [id number] Height Weight BMI Blood Pressure 70 in 193 lbs 6 oz 27.7 kg/m2 96/61 mm[Hg] 11/12/2020 11:40AM ESTABLISHED [id number] Height Weight BMI Blood Pressure 70 in 195 lbs 4 oz 28 kg/m2 119/74 mm[Hg] 11/04/2020 01:40PM HOSPITAL DISCHARGE Height Weight BMI Blood Pressure 70 in 200 lbs 4 oz 28.7 kg/m2 102/66 mm[Hg] 09/03/2020 01:40PM ESTABLISHED [id number] Height Weight BMI Blood Pressure 70 in 208 lbs 8 oz 29.9 kg/m2 111/70 mm[Hg] 06/02/2020 02:00PM ESTABLISHED [id number] Height Weight BMI Blood Pressure 70 in 215 lbs 16 oz 31 kg/m2 102/64 mm[Hg] 05/26/2020 09:00AM PROVIDER REQUESTED Height Weight BMI Blood Pressure 70 in 220 lbs 9.6 oz 31.7 kg/m2 100/67 mm[Hg ] 05/12/2020 08:20AM ESTABLISHED [id number] Height Weight BMI Blood Pressure 70 in [...]
[2021-04-26] MEDS ORDERED: LEXA1TAB (15:34)
--- OUTSIDE RECORDS SUMMARY | 2021-04-26 15:37 | CCD ---
Author Author [facility] Organization [facility] Address Unknown Phone Unavailable Care Team Providers Care Profiling Machine Set Up Operator Tool Name Role Phone Rachael Fagan MD Unavailable Unavailable Rachael Fagan MD Unavailable Unavailable Rahcael Fagan MD Unavailable Unavailable Rachael Fagan MD Unavailable Unavailable Rachael Fagan MD Unavailable Unavailable Rachael Fagan MD Unavailable Unavailable Rachael Fagan MD Unavailable Unavailable Rachael Fagan MD Unavailable Unavailable Rachael Fagan MD Unavailable Unavailable Rachael Fagan MD Unavailable Unavailable Rachael Fagan MD Unavailable Unavailable Rachael Fagan MD Unavailable Unavailable Rachael Fagan MD Unavailable Unavailable Rachael Fagan MD Unavailable Unavailable Rachael Fagan MD Unavailable Unavailable Rachael Fagan MD Unavailable Unavailable Rachael Fagan MD Unavailable Unavailable Rachael Fagan MD Unavailable Unavailable Rachael Fagan MD Unavailable Unavailable Rachael Fagan MD Unavailable Unavailable Rachael Fagan MD Unavailable Unavailable Rachael Fagan MD Unavailable Unavailable Rachael Fagan MD Unavailable Unavailable Rachael Fagan MD Unavailable Unavailable Rachael Fagan MD Unavailable Unavailable Rachael Fagan MD Unavailable Unavailable Rachael Fagan MD Unavailable Unavailable Rachael Fagan MD Unavailable Unavailable Rachael Fagan MD Unavailable Unavailable Rachael Fagan MD Unavailable Unavailable Rachael Fagan MD Unavailable Unavailable Rachael Fagan MD Unavailable Unavailable Rachael Fagan MD Unavailable Unavailable Rachael Fagan MD Unavailable Unavailable Rachael Fagan MD Unavailable Unavailable Rachael Fagan MD Unavailable Unavailable Rachael Fagan MD Unavailable Unavailable Rachael Fagan MD Unavailable Unavailable Rachael Fagan MD Unavailable Unavailable Rachael Fagan MD Unavailable Unavailable Rachael Fagan MD Unavailable Unavailable Rachael Fagan MD Unavailable Unavailable Rachael Fagan MD Unavailable Unavailable Rachael Fagan MD Unavailable Unavailable Rachael Fagan MD Unavailable Unavailable Rachael Fagan MD Unavailable Unavailable Rachael Fagan MD Unavailable Unavailable Rachael Fagan MD Unavailable Unavailable Rachael Fagan MD Unavailable Unavailable Rachael Fagan MD Unavailable Unavailable Rachael Fagan MD Unavailable Unavailable Rachael Fagan MD Unavailable Unavailable Rachael Fagan MD Unavailable Unavailable Rachael Fagan MD Unavailable Unavailable Rachael Fagan MD Unavailable Unavailable Rachael Fagan MD Unavailable Unavailable Rachael Fagan MD Unavailable Unavailable Rachael Fagan MD Unavailable Unavailable Rachael Fagan MD Unavailable Unavailable Rachael Fagan MD Unavailable Unavailable Rachael Fagan MD Unavailable Unavailable Rachael Fagan MD Unavailable Unavailable Rachael Fagan MD Unavailable Unavailable Rachael Fagan MD Unavailable Unavailable Rachael Fagan MD Unavailable Unavailable Rachael Fagan MD Unavailable Unavailable Rachael Fagan MD Unavailable Unavailable Rachael Fagan MD Unavailable Unavailable Rachael Fagan MD Unavailable Unavailable Rachael Fagan MD Unavailable Unavailable Rachael Fagan MD Unavailable Unavailable Rachael Fagan MD Unavailable Unavailable Rachael Fagan MD Unavailable Unavailable Rachael Fagan MD Unavailable Unavailable Rachael Fagan MD Unavailable Unavailable Rachael Fagan MD Unavailable Unavailable Rachael Fagan MD Unavailable Unavailable Rachael Fagan MD Unavailable Unavailable Rachael Fagan MD Unavailable Unavailable Rachael Fagan MD Unavailable Unavailable Rachael Fagan MD Unavailable Unavailable Rachael Fagan MD Unavailable Unavailable Rachael Fagan MD Unavailable Unavailable Rachael Fagan MD Unavailable Unavailable Rachael Fagan MD Unavailable Unavailable Rachael Fagan MD Unavailable Unavailable Rachael Fagan MD Unavailable Unavailable Rachael Fagan MD Unavailable Unavailable Rachael Fagan MD Unavailable Unavailable Rachael Fagan MD Unavailable Unavailable Rachael Fagan MD Unavailable Unavailable Rachael Fagan MD Unavailable Unavailable Rachael Fagan MD Unavailable Unavailable Melissa Kwok Unavailable [phone] Dori Blackburn SENIOR SOFTWARE TEST ENGINEER SENIOR SOFTWARE TEST ENGINEER Unavailable Unavailable Cristofer Branham MD Unavailable Unavailable Cristofer Branham MD Unavailable Unavailable Cristofer Branham MD Unavailable Unavailable Cristofer Branham MD Unavailable Unavailable Cristofer Branham MD Unavailable Unavailable Cristofer Branham MD Unavailable Unavailable Cristofer Branham MD Unavailable Unavailable Cristofer Branham MD Unavailable Unavailable Thomas Helton MD Unavailable Unavailable Thomas Helton MD Unavailable Unavailable Thomas Helton MD Unavailable Unavailable Thomas Helton MD Unavailable Unavailable Thomas Helton MD Unavailable Unavailable Thomas Helton MD Unavailable Unavailable Thomas Helton MD Unavailable Unavailable Thomas Helton MD Unavailable Unavailable Thomas Helton MD Unavailable Unavailable Thomas Helton MD Unavailable Unavailable Thomas Helton MD Unavailable Unavailable Thomas Helton MD Unavailable Unavailable Thomas Helton MD Unavailable Unavailable Thomas Helton MD Unavailable Unavailable Thomas Helton MD Unavailable Unavailable Thomas Helton MD Unavailable Unavailable Thomas Helton MD Unavailable Unavailable Thomas Helton MD Unavailable Unavailable Thomas Helton MD Unavailable Unavailable Thomas Helton MD Unavailable Unavailable Thomas Helton MD Unavailable Unavailable Thomas Helton MD Unavailable Unavailable Thomas Helton MD Unavailable Unavailable Thomas Helton MD Unavailable Unavailable Thomas Helton MD Unavailable Unavailable Thomas Helton MD Unavailable Unavailable Thomas Helton MD Unavailable Unavailable EngThomas MD Unavailable Unavailable EngThomas MD Unavailable Unavailable Thomas Helton MD Unavailable Unavailable Thomas Helton MD Unavailable Unavailable Thomas Helton MD Unavailable Unavailable Thomas Helton MD Unavailable Unavailable EngThomas MD Unavailable Unavailable EngThomas MD Unavailable Unavailable EngThomas MD Unavailable Unavailable EngThomas MD Unavailable Unavailable EngThomas MD Unavailable Unavailable EngThomas MD Unavailable Unavailable EngThomas MD Unavailable Unavailable EngThomas MD Unavailable Unavailable EngThomas MD Unavailable Unavailable EngThomas MD Unavailable Unavailable EngThomas MD Unavailable Unavailable Eng, Thoams Coronado MD Unavailable Unavailable EngThomas MD Unavailable Unavailable EngThomas MD Unavailable Unavailable EngThomas MD Unavailable Unavailable Thomas Helton MD Unavailable Unavailable Thomas Helton MD Unavailable Unavailable Thomas Helton MD Unavailable Unavailable Thomas Helton MD Unavailable Unavailable Thomas Helton MD Unavailable Unavailable Thomas Helton MD Unavailable Unavailable Thomas Helton MD Unavailable Unavailable Thomas Helton MD Unavailable Unavailable Thomas Helton MD Unavailable Unavailable Thomas Helton MD Unavailable Unavailable Thomas Helton MD Unavailable Unavailable Thomas Helton MD Unavailable Unavailable Thomas Helton MD Unavailable Unavailable Thomas Helton MD Unavailable Unavailable Thomas Helton MD Unavailable Unavailable Thomas Helton MD Unavailable Unavailable Thomas Helton MD Unavailable Unavailable Thomas Helton MD Unavailable Unavailable Thomas Helton MD Unavailable Unavailable Thomas Helton MD Unavailable Unavailable Thomas Helton MD Unavailable Unavailable Thomas Helton MD Unavailable Unavailable Thomas Helton MD Unavailable Unavailable Thomas Helton MD Unavailable Unavailable Thomas Helton MD Unavailable Unavailable Thomas Helton MD Unavailable Unavailable Thomas Helton MD Unavailable Unavailable Thomas Helton MD Unavailable Unavailable Thomas Helton MD Unavailable Unavailable Thomas Helton MD Unavailable Unavailable Thomas Helton MD Unavailable Unavailable Thomas Helton MD Unavailable Unavailable Thomas Helton MD Unavailable Unavailable Thomas Helton MD Unavailable Unavailable Thomas Helton MD Unavailable Unavailable Thomas Helton MD Unavailable Unavailable Thomas Helton MD Unavailable Unavailable Thomas Helton MD Unavailable Unavailable Thomas Helton MD Unavailable Unavailable Thomas Helton MD Unavailable Unavailable Thomas Helton MD Unavailable Unavailable Thomas Helton MD Unavailable Unavailable Thomas Helton MD Unavailable Unavailable Thomas Helton MD Unavailable Unavailable Thomas Helton MD Unavailable Unavailable Thomas Helton MD Unavailable Unavailable Thomas Helton MD Unavailable Unavailable Thomas Helton MD Unavailable Unavailable Thomas Helton MD Unavailable Unavailable Thomas Helton MD Unavailable Unavailable Thomas Helton MD Unavailable Unavailable Thomas Helton MD Unavailable Unavailable Thomas Helton MD Unavailable Unavailable Thomas Helton MD Unavailable Unavailable Thomas Helton MD Unavailable Unavailable Eng, Thomas Coronado MD Unavailable Unavailable EngThomas MD Unavailable Unavailable EngThomas MD Unavailable Unavailable Eng, Thomas Coronado MD Unavailable Unavailable EngThomas MD Unavailable Unavailable Thomas Helton MD Unavailable Unavailable EngThomas MD Unavailable Unavailable EngThomas MD Unavailable Unavailable Thomas Helton MD Unavailable Unavailable Eng, Thomas Coronado MD Unavailable Unavailable Eng, Thomas Coronado MD Unavailable Unavailable Eng, Thomas Coronado MD Unavailable Unavailable Eng, Thomas Coronado MD Unavailable Unavailable Eng, Thomas Coronado MD Unavailable Unavailable EngThomas MD Unavailable Unavailable Eng, Thomas Coronado MD Unavailable Unavailable EngThomas MD Unavailable Unavailable Thomas Helton MD Unavailable Unavailable Thomas Helton MD Unavailable Unavailable Thomas Helton MD Unavailable Unavailable EngThomas MD Unavailable Unavailable Thomas Helton MD Unavailable Unavailable Thomas Helton MD Unavailable Unavailable Thomas Helton MD Unavailable Unavailable Thomas Helton MD Unavailable Unavailable Thomas Helton MD Unavailable Unavailable Thomas Helton MD Unavailable Unavailable Thomas Helton MD Unavailable Unavailable Thomas Helton MD Unavailable Unavailable Thomas Helton MD Unavailable Unavailable Thomas Helton MD Unavailable Unavailable Thomas Helton MD Unavailable Unavailable Thomas Helton MD Unavailable Unavailable Thomas Helton MD Unavailable Unavailable Thomas Helton MD Unavailable Unavailable Thomas Helton MD Unavailable Unavailable Thomas Helton MD Unavailable Unavailable Thomas Helton MD Unavailable Unavailable Thomas Helton MD Unavailable Unavailable Thomas Helton MD Unavailable Unavailable Thomas Helton MD Unavailable Unavailable Thomas Helton MD Unavailable Unavailable Thomas Helton MD Unavailable Unavailable Thomas Helton MD Unavailable Unavailable Thomas Helton MD Unavailable Unavailable Thomas Helton MD Unavailable Unavailable Thomas Helton MD Unavailable Unavailable Thomas Helton MD Unavailable Unavailable Thomas Helton MD Unavailable Unavailable Thomas Helton MD Unavailable Unavailable Thomas Helton MD Unavailable Unavailable Thomas Helton MD Unavailable Unavailable Thomas Helton MD Unavailable Unavailable Thomas Helton MD Unavailable Unavailable Thomas Helton MD Unavailable Unavailable Thomas Helton MD Unavailable Unavailable Thomas Helton MD Unavailable Unavailable Thomas Helton MD Unavailable Unavailable Thomas Helton MD Unavailable Unavailable Thomas Helton MD Unavailable Unavailable Thomas Helton MD Unavailable Unavailable Thomas Helton MD Unavailable Unavailable Thomas Helton MD Unavailable Unavailable Thomas Helton MD Unavailable Unavailable Thomas Helton MD Unavailable Unavailable Thomas Helton MD Unavailable Unavailable Thomas Helton MD Unavailable Unavailable Thomas Helton MD Unavailable Unavailable Thomas Helton MD Unavailable Unavailable Thomas Helton MD Unavailable Unavailable Thomas Helton MD Unavailable Unavailable Thomas Helton MD Unavailable Unavailable Thomas Helton MD Unavailable Unavailable Thomas Helton MD Unavailable Unavailable Thomas Helton MD Unavailable Unavailable Thomas Helton MD Unavailable Unavailable Thomas Helton MD Unavailable Unavailable Thomas Helton MD Unavailable Unavailable Thomas Helton MD Unavailable Unavailable Thomas Helton MD Unavailable Unavailable Thomas Helton MD Unavailable Unavailable Thomas Helton MD Unavailable Unavailable Thomas Helton MD Unavailable Unavailable Thomas Helton MD Unavailable Unavailable Thomas Helton MD Unavailable Unavailable Thomas Helton MD Unavailable Unavailable Thomas Helton MD Unavailable Unavailable Thomas Helton MD Unavailable Unavailable Thomas Helton MD Unavailable Unavailable Thomas Helton MD Unavailable Unavailable Thomas Helton MD Unavailable Unavailable Thomas Helton MD Unavailable Unavailable Thomas Helton MD Unavailable Unavailable Thomas Helton MD Unavailable Unavailable Thomas Helton MD Unavailable Unavailable Thomas Helton MD Unavailable Unavailable Thomas Helton MD Unavailable Unavailable Thomas Helton MD Unavailable Unavailable Thomas Helton MD Unavailable Unavailable Thomas Helton MD Unavailable Unavailable Thomas Helton MD Unavailable Unavailable TURRIN, ERON Unavailable Unavailable TURRIN, ERON Unavailable Unavailable TURRIN, ERON Unavailable Unavailable TURRIN, ERON Unavailable Unavailable Jumalon, M Jacy SENIOR SOFTWARE TEST ENGINEER Unavailable Unavailable Jumalon, M Jacy SENIOR SOFTWARE TEST ENGINEER Unavailable Unavailable Jumalon, M Jacy SENIOR SOFTWARE TEST ENGINEER Unavailable Unavailable Jumalon, M Jacy SENIOR SOFTWARE TEST ENGINEER Unavailable Unavailable Jumalon, M Jacy SENIOR SOFTWARE TEST ENGINEER Unavailable Unavailable Jumalon, M Jacy SENIOR SOFTWARE TEST ENGINEER Unavailable Unavailable Jumalon, M Jacy SENIOR SOFTWARE TEST ENGINEER Unavailable Unavailable Jumalon, M Jacy SENIOR SOFTWARE TEST ENGINEER Unavailable Unavailable Jumalon, M Jacy SENIOR SOFTWARE TEST ENGINEER Unavailable Unavailable Jumalon, M Jacy SENIOR SOFTWARE TEST ENGINEER Unavailable Unavailable Jumalon, M Jacy SENIOR SOFTWARE TEST ENGINEER Unavailable Unavailable Jumalon, M Jacy SENIOR SOFTWARE TEST ENGINEER Unavailable Unavailable Jumalon, M Jacy SENIOR SOFTWARE TEST ENGINEER Unavailable Unavailable Jumalon, M Jacy SENIOR SOFTWARE TEST ENGINEER Unavailable Unavailable Jumalon, M Jacy SENIOR SOFTWARE TEST ENGINEER Unavailable Unavailable Jumalon, M Jacy SENIOR SOFTWARE TEST ENGINEER Unavailable Unavailable Jumalon, M Jacy SENIOR SOFTWARE TEST ENGINEER Unavailable Unavailable Jumalon, M Jacy SENIOR SOFTWARE TEST ENGINEER Unavailable Unavailable Jumalon, M Jacy SENIOR SOFTWARE TEST ENGINEER Unavailable Unavailable Jumalon, M Jacy SENIOR SOFTWARE TEST ENGINEER Unavailable Unavailable Jumalon, M Jacy SENIOR SOFTWARE TEST ENGINEER Unavailable Unavailable Jumalon, M Jacy SENIOR SOFTWARE TEST ENGINEER Unavailable Unavailable Jumalon, M Jacy SENIOR SOFTWARE TEST ENGINEER Unavailable Unavailable Jumalon, M Jacy SENIOR SOFTWARE TEST ENGINEER Unavailable Unavailable Jumalon, M Jacy SENIOR SOFTWARE TEST ENGINEER Unavailable Unavailable Jumalon, M Jacy SENIOR SOFTWARE TEST ENGINEER Unavailable Unavailable Jumalon, M Jacy SENIOR SOFTWARE TEST ENGINEER Unavailable Unavailable Jumalon, M Jacy SENIOR SOFTWARE TEST ENGINEER Unavailable Unavailable Jumalon, M Jacy SENIOR SOFTWARE TEST ENGINEER Unavailable Unavailable Jumalon, M Jacy SENIOR SOFTWARE TEST ENGINEER Unavailable Unavailable Campanaro, Mare Ines PA Unavailable Unavailable Campanaro, Mare Ines PA Unavailable Unavailable Campanaro, Mare Ines PA Unavailable Unavailable Campanaro, Mare Ines PA Unavailable Unavailable Campanaro, Mare Ines PA Unavailable Unavailable Campanaro, Mare Ines PA Unavailable Unavailable Campanaro, Mare Ines PA Unavailable Unavailable Campanaro, Mare Ines PA Unavailable Unavailable Campanaro, Mare Ines PA Unavailable Unavailable Campanaro, Mare Ines PA Unavailable Unavailable Campanaro, Mare Ines PA Unavailable Unavailable Campanaro, Mare Ines PA Unavailable Unavailable Campanaro, Mare Ines PA Unavailable Unavailable Campanaro, Mare Ines PA Unavailable Unavailable Campanaro, Mare Ines PA Unavailable Unavailable Campanaro, Mare Ines PA Unavailable Unavailable Campanaro, Mare Ines PA Unavailable Unavailable Kunnumpurath, F Domonique MD Unavailable Unavailable Kunnumpurath, F Domonique MD Unavailable Unavailable Kunnumpurath, F Domonique MD Unavailable Unavailable Kunnumpurath, F Domonique MD Unavailable Unavailable Kunnumpurath, F Domonique MD Unavailable Unavailable Kunnumpurath, F Domonique MD Unavailable Unavailable Kunnumpurath, F Domonique MD Unavailable Unavailable Kunnumpurath, F Domonique MD Unavailable Unavailable Kunnumpurath, F Domonique MD Unavailable Unavailable Kunnumpurath, F Domonique MD Unavailable Unavailable Kunnumpurath, F Domonique MD Unavailable Unavailable Kunnumpurath, F Domonique MD Unavailable Unavailable Kunnumpurath, F Domonique MD Unavailable Unavailable Kunnumpurath, F Domonique MD Unavailable Unavailable Kunnumpurath, F Domonique MD Unavailable Unavailable Kunnumpurath, F Domonique MD Unavailable Unavailable Kunnumpurath, F Domonique MD Unavailable Unavailable Kunnumpurath, F Domonique MD Unavailable Unavailable Kunnumpurath, F Domonique MD Unavailable Unavailable Kunnumpurath, F Domonique MD Unavailable Unavailable Kunnumpurath, F Domonique MD Unavailable Unavailable Kunnumpurath, F Domonique MD Unavailable Unavailable Kunnumpurath, F Domonique MD Unavailable Unavailable Kunnumpurath, F Domonique MD Unavailable Unavailable Kunnumpurath, F Domonique MD Unavailable Unavailable Kunnumpurath, F Domonique MD Unavailable Unavailable Kunnumpurath, F Domonique MD Unavailable Unavailable Kunnumpurath, F Domonique MD Unavailable Unavailable Kunnumpurath, F Domonique MD Unavailable Unavailable Kunnumpurath, F Domonique MD Unavailable Unavailable Kunnumpurath, F Domonique MD Unavailable Unavailable Kunnumpurath, F Domonique MD Unavailable Unavailable Kunnumpurath, F Domonique MD Unavailable Unavailable Kunnumpurath, F Domonique MD Unavailable Unavailable Kunnumpurath, F Domonique MD Unavailable Unavailable Kunnumpurath, F Domonique MD Unavailable Unavailable Kunnumpurath, F Domonique MD Unavailable Unavailable Kunnumpurath, F Domonique MD Unavailable Unavailable Kunnumpurath, F Domonique MD Unavailable Unavailable Kunnumpurath, F Domonique MD Unavailable Unavailable Kunnumpurath, F Domonique MD Unavailable Unavailable Kunnumpurath, F Domonique MD Unavailable Unavailable Kunnumpurath, F Domonique MD Unavailable Unavailable Kunnumpurath, F Domonique MD Unavailable Unavailable Kunnumpurath, F Domonique MD Unavailable Unavailable Kunnumpurath, F Domonique MD Unavailable Unavailable Alexey, A Dori SENIOR SOFTWARE TEST ENGINEER Unavailable Unavailable Alexey, A Dori SENIOR SOFTWARE TEST ENGINEER Unavailable Unavailable Alexey, A Dori SENIOR SOFTWARE TEST ENGINEER Unavailable Unavailable Alexey, A Dori SENIOR SOFTWARE TEST ENGINEER Unavailable Unavailable Alexey, A Dori SENIOR SOFTWARE TEST ENGINEER Unavailable Unavailable Alexey, A Dori SENIOR SOFTWARE TEST ENGINEER Unavailable Unavailable Alexey, A Dori SENIOR SOFTWARE TEST ENGINEER Unavailable Unavailable Alexey, A Dori SENIOR SOFTWARE TEST ENGINEER Unavailable Unavailable Alexey, A Dori SENIOR SOFTWARE TEST ENGINEER Unavailable Unavailable Alexey, A Dori SENIOR SOFTWARE TEST ENGINEER Unavailable Unavailable Alexey, A Dori SENIOR SOFTWARE TEST ENGINEER Unavailable Unavailable Alexey, A Dori SENIOR SOFTWARE TEST ENGINEER Unavailable Unavailable Alexey, A Dori SENIOR SOFTWARE TEST ENGINEER Unavailable Unavailable Alexey, A Dori SENIOR SOFTWARE TEST ENGINEER Unavailable Unavailable Alexey, A Dori SENIOR SOFTWARE TEST ENGINEER Unavailable Unavailable Alexey, A Dori SENIOR SOFTWARE TEST ENGINEER Unavailable Unavailable Alexey, A Dori SENIOR SOFTWARE TEST ENGINEER Unavailable Unavailable Alexey, A Dori SENIOR SOFTWARE TEST ENGINEER Unavailable Unavailable Alexey, A Dori SENIOR SOFTWARE TEST ENGINEER Unavailable Unavailable Alexey, A Dori SENIOR SOFTWARE TEST ENGINEER Unavailable Unavailable Alexey, A Dori SENIOR SOFTWARE TEST ENGINEER Unavailable Unavailable Alexey, A Dori SENIOR SOFTWARE TEST ENGINEER Unavailable Unavailable Alexey, A Dori SENIOR SOFTWARE TEST ENGINEER Unavailable Unavailable Alexey, A Dori SENIOR SOFTWARE TEST ENGINEER Unavailable Unavailable Alexey, A Dori SENIOR SOFTWARE TEST ENGINEER Unavailable Unavailable Alexey, A Dori SENIOR SOFTWARE TEST ENGINEER Unavailable Unavailable Alexey, A Dori SENIOR SOFTWARE TEST ENGINEER Unavailable Unavailable Alexey, A Dori SENIOR SOFTWARE TEST ENGINEER Unavailable Unavailable Alexey, A Dori SENIOR SOFTWARE TEST ENGINEER Unavailable Unavailable Alexey, A Dori SENIOR SOFTWARE TEST ENGINEER Unavailable Unavailable Alexey, A Dori SENIOR SOFTWARE TEST ENGINEER Unavailable Unavailable Machuca, M Christopher PA-C Unavailable Unavailable Machuca, M Christopher PA-C Unavailable Unavailable Machuca, M Christopher PA-C Unavailable Unavailable Machuca, M Christopher PA-C Unavailable Unavailable Machuca, M Christopher PA-C Unavailable Unavailable Machuca, M Christopher PA-C Unavailable Unavailable Machuca, M Christopher PA-C Unavailable Unavailable Machuca, M Christopher PA-C Unavailable Unavailable Machuca, M Christopher PA-C Unavailable Unavailable Machuca, M Christopher PA-C Unavailable Unavailable Machuca, M Christopher PA-C Unavailable Unavailable Machuca, M Christopher PA-C Unavailable Unavailable Machuca, M Christopher PA-C Unavailable Unavailable Machuca, M Christopher PA-C Unavailable Unavailable Machuca, M Christopher PA-C Unavailable Unavailable Machuca, M Christopher PA-C Unavailable Unavailable Machuca, M Christopher PA-C Unavailable Unavailable Machuca, M Christopher PA-C Unavailable Unavailable Machuca, M Christopher PA-C Unavailable Unavailable Machuca, M Christopher PA-C Unavailable Unavailable Machuca, M Christopher PA-C Unavailable Unavailable Machuca, M Christopher PA-C Unavailable Unavailable Machuca, M Christopher PA-C Unavailable Unavailable Machuca, M Christopher PA-C Unavailable Unavailable Machuca, M Christopher PA-C Unavailable Unavailable Machuca, M Christopher PA-C Unavailable Unavailable Re-disclosure Warning The records that you are about to access may contain information from federally-assisted alcohol or drug abuse programs. If such information is present, then the following federally mandated warning applies: This information has been disclosed to you from records protected by federal confidentiality rules (42 CFR part 2). The federal rules prohibit you from making any further disclosure of this information unless further disclosure is expressly permitted by the written consent of the person to whom it pertains or as otherwise permitted by 42 CFR part 2. A general authorization for the release of medical or other information is NOT sufficient for this purpose. The Federal rules restrict any use of the information to criminally investigate or prosecute any alcohol or drug abuse patient.The records that you are about to access may contain highly sensitive health information, the redisclosure of which is protected by Article 27-F of the [facility] Public Health law. If you continue you may have access to information: Regarding HIV / AIDS; Provided by facilities licensed or operated by the [facility] Office of Mental Health; or Provided by the [facility] Office for People With Developmental Disabilities. If such information is present, then the following [facility] mandated warning applies: This information has been disclosed to you from confidential records which are protected by state law. State law prohibits you from making any further disclosure of this information without the specific written consent of the person to whom it pertains, or as otherwise permitted by law. Any unauthorized further disclosure in violation of state law may result in a fine or halfway sentence or both. A general authorization for the release of medical or other information is NOT sufficient authorization for further disc losure. Allergies and Adverse Reactions Type Description Substance Reaction Status Data Source(s ) Allergy to substance Allergy to substance Allergy to substance [facility] ([facility]) Allergy to substance Allergy to substance Allergy to substance [facility] ([facility]) Allergy to substance Allergy to substance Allergy to substance [facility] ([facility]) Family History Family Member Name Family Member Gender Family Member Status Date o f Status Description Data Source(s) Unknown Male Problem MEDENT ([facility]) Encounters Encounter Providers Location Date Indications Data Source(s ) Ministerio Fagan MD: [address] [place] [phone], Ph. Attender: Ministerio Fagan MD [facility] 03/30/2021 12:00:00 AM EDT [facility] ([facility]) Ministerio Fagan MD: [address] [place] [address], Ph. Attender: Ministerio Fagan MD [facility] Medical 03/02/2021 12:00:00 AM EDT [place] ([facility]) Ministerio Fagan MD: [address] [place] [address], Ph. Attender: Ministerio Fagan MD [facility] Medical 03/02/2021 12:00:00 AM EDT [place] ([facility]) Janene Branham MD: [address], [place] [address], Ph. Attender: Janene Branham MD [facility] Medical 02/14/2021 12:00:00 AM EDT [place] ([facility]) Janene Branham MD: [address], [place] [address], Ph. Attender: Janene Branham MD [facility] Medical 02/14/2021 12:00:00 AM EDT [place] ([facility]) Janene Branham MD: [address], [place] [address], Ph. Attender: Janene Branham MD [facility] Medical 02/14/2021 12:00:00 AM EDT [place] ([facility]) Janene Branham MD: [address], [place] [address], Ph. Attender: Janene Branham MD [facility] Medical 02/14/2021 12:00:00 AM EDT [place] ([facility]) Ministerio Fagan MD: [address] [place] [address], Ph. Attender: Ministerio Fagan MD [facility] Medical 01/31/2021 12:00:00 AM EDT [place] ([facility]) Ministerio Fagan MD: [address] [place] [address], Ph. Attender: Ministerio Fagan MD [facility] Medical 01/31/2021 12:00:00 AM EDT [facility] ([facility]) Ministerio Fagan MD: [address] [place] [address], Ph. Attender: Ministerio Fagan MD [facility] Medical 01/31/2021 12:00:00 AM EDT [place] ([facility]) Ministerio Fagan MD: [address] [place] [address], Ph. Attender: Ministerio Fagan MD [facility] Medical 01/31/2021 12:00:00 AM EDT [place] ([facility]) Ministerio Fagan MD: [address] [place] [address], Ph. Attender: Ministerio Fagan MD [facility] Medical 01/31/2021 12:00:00 AM EDT [place] ([facility]) Ministerio Fagan MD: [address] [place] [address], Ph. Attender: Ministerio Fagan MD [facility] Medical 12/08/2020 12:00:00 AM EDT [place] ([facility]) Ministerio Fagan MD: [address] [place] [address], Ph. Attender: Ministerio Fagan MD [facility] Medical 12/08/2020 12:00:00 AM EDT [place] ([facility]) Ministerio Fagan MD: [address] [place] [address], Ph. Attender: Ministerio Fagan MD [facility] Medical 12/08/2020 12:00:00 AM EDT [place] ([facility]) Ministerio Fagan MD: [address] [place] [address], Ph. Attender: Ministerio Fagan MD [facility] Medical 12/08/2020 12:00:00 AM EDT [place] ([facility]) Ministerio Fagan MD: [address] [place] [address], Ph. Attender: Ministerio Fagan MD [facility] Medical 12/08/2020 12:00:00 AM EDT [place] ([facility]) Ministerio Fagan MD: [address] [place] [address], Ph. Attender: Ministerio Fagan MD [facility] Medical 12/08/2020 12:00:00 AM EDT [place] ([facility]) Ministerio Fagan MD: [address] [place] [address], Ph. Attender: Ministerio Fagan MD [facility] Medical 11/12/2020 12:00:00 AM EDT [place] ([facility]) Ministerio Fagan MD: [address] [place] [address], Ph. Attender: Ministerio Fagan MD [facility] Medical 11/12/2020 12:00:00 AM EDT [place] ([facility]) Ministerio Fagan MD: [address] [place] [address], Ph. Attender: Ministerio Fagan MD [facility] Medical 11/12/2020 12:00:00 AM EDT [facility] ([facility]) Ministerio Fagan MD: [address] [place] [address], Ph. Attender: Ministerio Fagan MD [facility] Medical 11/12/2020 12:00:00 AM EDT [place] ([facility]) Ministerio Fagan MD: [address] [place] [address], Ph. Attender: Ministerio Fagan MD [facility] Medical 11/12/2020 12:00:00 AM EDT [facility] ([facility]) Ministerio Fagan MD: [address] [place] [address], Ph. Attender: Ministerio Fagan MD [facility] Medical 11/12/2020 12:00:00 AM EDT [facility] ([facility]) Ministerio Fagan MD: [address] [place] [address], Ph. Attender: Ministerio Fagan MD [facility] Medical 11/12/2020 12:00:00 AM EDT [place] ([facility]) Ministerio Fagan MD: [address] [place] [address], Ph. Attender: Ministerio Fagan MD [facility] Medical 11/04/2020 12:00:00 AM EDT [place] ([facility]) Ministerio Fagan MD: [address] [place] [address], Ph. Attender: Ministerio Fagan MD [facility] Medical 11/04/2020 12:00:00 AM EDT [place] ([facility]) Ministerio Fagan MD: [address] [place] [address]5 [address], Ph. Attender: Ministerio Fagan MD [facility] Medical 11/04/2020 12:00:00 AM EDT [facility] ([facility]) Ministerio Fagan MD: [address] [place] [address], Ph. Attender: Ministerio Fagan MD [facility] Medical 11/04/2020 12:00:00 AM EDT [facility] ([facility]) Ministerio Fagan MD: [address], [place] [address], Ph. Attender: Ministerio Fagan MD [facility] Medical 11/04/2020 12:00:00 AM EDT [place] ([facility]) Ministerio Fagan MD: [address] [place] [address], Ph. Attender: Ministerio Fagan MD [facility] Medical 11/04/2020 12:00:00 AM EDT [place] ([facility]) Ministerio Fagan MD: [address] [place] [address], Ph. Attender: Ministerio Fagan MD [facility] Medical 11/04/2020 12:00:00 AM EDT [place] ([facility]) Ministerio Fagan MD: [address] [place] [address], Ph. Attender: Ministerio Fagan MD [facility] Medical 11/04/2020 12:00:00 AM EDT [place] ([facility]) Ministerio Fagan MD: [address] [place] [address], Ph. Attender: Ministerio Fagan MD [facility] Medical 09/03/2020 12:00:00 AM EST [facility] ([facility]) Ministerio Fagan MD: [address] [place] [address], Ph. Attender: Ministerio Fagan MD [facility] Medical 09/03/2020 12:00:00 AM EST [facility] ([facility]) Ministerio Fagan MD: [address] [place] [address]3 [address], Ph. Attender: Ministerio Fagan MD [facility] Medical 09/03/2020 12:00:00 AM EST [place] ([facility]) Ministerio Fagan MD: [address] [place] [address], Ph. Attender: Ministerio Fagan MD [facility] Medical 09/03/2020 12:00:00 AM EST [facility] ([facility]) Ministerio Fagan MD: [address] [place] [address]0 [address], Ph. Attender: Ministerio Fagan MD [facility] Medical 09/03/2020 12:00:00 AM EST [place] ([facility]) Ministerio Fagan MD: [address] [place] [address]4 [address], Ph. Attender: Ministerio Fagan MD [facility] Medical 09/03/2020 12:00:00 AM EST [place] ([facility]) Ministerio Fagan MD: [address] [place] [address]0 [address], Ph. Attender: Ministerio Fagan MD [facility] Medical 09/03/2020 12:00:00 AM EST [place] ([facility]) Ministerio Fagan MD: [address] [place] [address]5 [address], Ph. Attender: Ministerio Fagan MD [facility] Medical 09/03/2020 12:00:00 AM EST [facility] ([facility]) Outpatient Attender: Augusto Helton MD [id number] 08/11/2020 09:14:22 [facility] Ministerio Fagan MD: [address] [place] [address], Ph. Attender: Ministerio Fagan MD [facility] Medical 06/02/2020 12:00:00 AM EST [place] ([facility]) Ministerio Fagan MD: [address] [place] [address]2 [address], Ph. Attender: Ministerio Fagan MD [facility] Medical 06/02/2020 12:00:00 AM EST [place] ([facility]) Ministerio Fagan MD: [address] [place] [address], Ph. Attender: Ministerio Fagan MD [facility] Medical 06/02/2020 12:00:00 AM EST [place] ([facility]) Ministerio Fagan MD: [address] [place] [address], Ph. Attender: Ministerio Fagan MD [facility] Medical 06/02/2020 12:00:00 AM EST [place] ([facility]) Ministerio Fagan MD: [address] [place] [address], Ph. Attender: Ministerio Fagan MD [facility] Medical 06/02/2020 12:00:00 AM EST [place] ([facility]) Ministerio Fagan MD: [address] [place] [address]3 [address], Ph. Attender: Ministerio Fagan MD [facility] Medical 06/02/2020 12:00:00 AM EST [place] ([facility]) Ministerio Fagan MD: [address] [place] [address]4 [address], Ph. Attender: Ministerio Fagan MD [facility] Medical 06/02/2020 12:00:00 AM EST [place] ([facility]) Ministerio Fagan MD: [address] [place] [address]2 [address], Ph. Attender: Ministerio Fagan MD [facility] Medical 06/02/2020 12:00:00 AM EST [place] ([facility]) Ministerio Fagan MD: [address] [place] [address]9 [address], Ph. Attender: Ministerio Fagan MD [facility] Medical 06/02/2020 12:00:00 AM EST [place] ([facility]) Ministerio Fagan MD: [address] [place] [address]5 [address], Ph. Attender: Ministerio Fagan MD [facility] Medical 06/02/2020 12:00:00 AM EST [place] ([facility]) Ministerio Fagan MD: [address] [place] [address]6 [address], Ph. Attender: Ministerio Fagan MD [facility] Medical 06/02/2020 12:00:00 AM EST [place] ([facility]) Ministerio Fagan MD: [address] [place] [address]6 [address], Ph. Attender: Ministerio Fagan MD [facility] Medical 05/26/2020 12:00:00 AM EST [place] ([facility]) Ministerio Fagan MD: [address] [place] [address]8 [address], Ph. Attender: Ministerio Fagan MD [facility] Medical 05/26/2020 12:00:00 AM EST [place] ([facility]) Ministerio Fagan MD: [address] [place] [address]5 [address], Ph. Attender: Ministerio Fagan MD [facility] Medical 05/26/2020 12:00:00 AM EST [place] ([facility]) Ministerio Fagan MD: [address] [place] [address], Ph. Attender: Ministerio Fagan MD [facility] Medical 05/26/2020 12:00:00 AM EST [place] ([facility]) Ministerio Fagan MD: [address] [place] [address], Ph. Attender: Ministerio Fagan MD [facility] Medical 05/26/2020 12:00:00 AM EST [place] ([facility]) Ministerio Fagan MD: [address] [place] [address]3 [address], Ph. Attender: Ministerio Fagan MD [facility] Medical 05/26/2020 12:00:00 AM EST [place] ([facility]) Ministerio Fagan MD: [address] [place] [address]2 [address], Ph. Attender: Ministerio Fagan MD [facility] Medical 05/26/2020 12:00:00 AM EST [place] ([facility]) Ministerio Fagan MD: [address] [place] [address]5 [address], Ph. Attender: Ministerio Fagan MD [facility] Medical 05/26/2020 12:00:00 AM EST [facility] ([facility]) Ministerio Fagan MD: [address] [place] [address]1 [address], Ph. Attender: Ministerio Fagan MD [facility] Medical 05/26/2020 12:00:00 AM EST [place] ([facility]) Ministerio Fagan MD: [address] [place] [address]4 [address], Ph. Attender: Ministerio Fagan MD [facility] Medical 05/26/2020 12:00:00 AM EST [place] ([facility]) Ministerio Fagan MD: [address] [place] [address]1 [address], Ph. Attender: Ministerio Fagan MD [facility] Medical 05/26/2020 12:00:00 AM EST [place] ([facility]) Ministerio Fagan MD: [address] [place] [address], Ph. Attender: Ministerio Fagan MD [facility] Medical 05/26/2020 12:00:00 AM EST [facility] ([facility]) Outpatient Attender: uAgusto Helton MDReferrer: Augusto Helton MD [id number] 05/24/2020 02:38:00 PM EST - 05/24/2020 11:59:00 PM EST [facility] Patient discharged. Ministerio Fagan MD: [address] [place] [address], Ph. Attender: Ministerio Fagan MD [facility] Medical 05/12/2020 12:00:00 AM EST [place] ([facility]) Ministerio Fagan MD: [address] [place] [address], Ph. Attender: Ministerio Fagan MD [facility] Medical 05/12/2020 12:00:00 AM EST [facility] ([facility]) RANDAL CurtisW-R: [address] [place] [address], Ph. Attender: Melissa Kwok [facility] 05/12/2020 12:00:00 AM EST [place] ([facility]) Ministerio Fagan MD: [address] [place] [address]0 [address], Ph. Attender: Ministerio Fagan MD [facility] Medical 05/12/2020 12:00:00 AM EST [place] ([facility]) RANDAL CurtisW-R: [address] [place] [address], Ph. Attender: Melissa Kwok [facility] Medical 05/12/2020 12:00:00 AM EST [facility] ([facility]) Ministerio Fagan MD: [address] [place] [address], Ph. Attender: Ministerio Fagan MD [facility] Medical 05/12/2020 12:00:00 AM EST [facility] ([facility]) Melissahayley Kwok, DIRECTOR PRISON-R: [address] [place] [address], Ph. Attender: Melissa Kwok [facility] Medical 05/12/2020 12:00:00 AM EST [place] ([facility]) Ministerio Fagan MD: [address] [place] [address]5 [address], Ph. Attender: Ministerio Fagan MD [facility] Medical 05/12/2020 12:00:00 AM EST [facility] ([facility]) Melissaleon Hoskinso, DIRECTOR PRISON-R: [address] [place] [address], Ph. Attender: Melissa Kwok [facility] Medical 05/12/2020 12:00:00 AM EST [place] ([facility]) Ministerio Fagan MD: [address] [place] [address], Ph. Attender: Ministerio Fagan MD [facility] Medical 05/12/2020 12:00:00 AM EST [place] ([facility]) Melissa Turturrmoustapha, DIRECTOR PRISON-R: [address] [place] [address], Ph. Attender: Melissahayley Kwok [facility] Medical 05/12/2020 12:00:00 AM EST [place] ([facility]) Ministerio Fagan MD: [address] [place] [address], Ph. Attender: Ministerio Fagan MD [facility] Medical 05/12/2020 12:00:00 AM EST [place] ([facility]) Melissa Kwok, DIRECTOR PRISON-R: [address] [place] [address], Ph. Attender: Melissa Kwok [facility] Medical 05/12/2020 12:00:00 AM EST [place] ([facility]) Ministerio Fagan MD: [address] [place] [address], Ph. Attender: Ministerio Fagan MD [facility] Medical 05/12/2020 12:00:00 AM EST [place] ([facility]) Melissa Kwok, DIRECTOR PRISON-R: [address] [place] [address], Ph. Attender: Melissa Kwok [facility] Medical 05/12/2020 12:00:00 AM EST [place] ([facility]) Ministerio Fagan MD: [address] [place] [address], Ph. Attender: Ministerio Fagan MD [facility] Medical 05/12/2020 12:00:00 AM EST [place] ([facility]) Melissa Kwok, DIRECTOR PRISON-R: [address] [place] [address], Ph. Attender: Melissa Kwok [facility] Medical 05/12/2020 12:00:00 AM EST [place] ([facility]) Ministerio Fagan MD: [address] [place] [address], Ph. Attender: Ministerio Fagan MD [facility] Medical 05/12/2020 12:00:00 AM EST [facility] ([facility]) Melissaleon Vermaturro, DIRECTOR PRISON-R: [address] [place] [address], Ph. Attender: Melissa Kwok [facility] Medical 05/12/2020 12:00:00 AM EST [facility] ([facility]) Ministerio Fagan MD: [address] [place] [address], Ph. Attender: Ministerio Fagan MD [facility] Medical 05/12/2020 12:00:00 AM EST [place] ([facility]) Melissaleon Vermaturro, DIRECTOR PRISON-R: [address] [place] [address], Ph. Attender: Melissa Vermaturro [facility] Medical 05/12/2020 12:00:00 AM EST [facility] ([facility]) Ministerio Fagan MD: [address] [place] [address], Ph. Attender: Ministerio Fagan MD [facility] Medical 05/12/2020 12:00:00 AM EST [facility] ([facility]) Melissaleon Hoskinso, DIRECTOR PRISON-R: [address] [place] [address], Ph. Attender: Melissa Bayrontjerome [facility] Medical 05/12/2020 12:00:00 AM EST [facility] ([facility]) Ministerio Fagan MD: [address] [place] [address], Ph. Attender: Ministerio Fagan MD [facility] Medical 05/12/2020 12:00:00 AM EST [facility] ([facility]) Melissa Kwok, DIRECTOR PRISON-R: [address] [place] [address], Ph. Attender: Melissa Kwok [facility] Medical 05/12/2020 12:00:00 AM EST [facility] ([facility]) Ministerio Fagan MD: [address] [place] [address], Ph. Attender: Ministerio Fagan MD [facility] Medical 05/12/2020 12:00:00 AM EST [facility] ([facility]) Melissa Kwok, DIRECTOR PRISON-R: [address] [place] [address], Ph. Attender: Melissa Kwok [facility] Medical 05/12/2020 12:00:00 AM EST [facility] ([facility]) Outpatient Referrer: Augusto Helton MD 05/07/2020 09:12:50 AM E [facility] Outpatient Referrer: Augusto Helton MD 05/07/2020 12:00:0 0 AM EST Spinal stenosis, lumbar region with neurogenic claudication [facility] Spinal stenosis, lumbar region with neur ogenic claudication Outpatient Attender: CRICKET BRYANT 05/06/2020 01:46:01 P M EST [facility] Ministerio Fagan MD: [address] [place] [address], Ph. Attender: Ministerio Fagan MD [facility] Medical 04/22/2020 12:00:00 AM EDT [facility] ([facility]) Ministerio Fagan MD: [address] [place] [address], Ph. Attender: Ministerio Fagan MD [facility] Medical 04/22/2020 12:00:00 AM EDT [facility] ([facility]) Ministerio Fagan MD: [address] [place] [address]1 [address], Ph. Attender: Ministerio Fagan MD [facility] Medical 04/22/2020 12:00:00 AM EDT [facility] ([facility]) Ministerio Fagan MD: [address] [place] [address], Ph. Attender: Ministerio Fagan MD [facility] Medical 04/22/2020 12:00:00 AM EDT [facility] ([facility]) Jacy Stevearely Childers, INSTRUMENT REPAIRER: [address], [address], [place] [address], Ph. Attender: Jacy Childers [facility] - Main Office 04/22/2020 12:00:00 AM EDT ATHE NA ([facility]) Ministerio Fagan MD: [address] [place] [address], Ph. Attender: Ministerio Fagan MD [facility] Medical 04/22/2020 12:00:00 AM EDT [facility] ([facility]) Ministerio Fagan MD: [address] [place] [address], Ph. Attender: Ministerio Fagan MD [facility] Medical 04/22/2020 12:00:00 AM EDT [facility] ([facility]) Ministerio Fagan MD: [address] [place] [address], Ph. Attender: Ministerio Fagan MD [facility] Medical 04/22/2020 12:00:00 AM EDT [facility] ([facility]) Ministerio Fagan MD: [address] [place] [address]4 [address], Ph. Attender: Ministreio Fagan MD [facility] Medical 04/22/2020 12:00:00 AM EDT [facility] ([facility]) Ministerio Fagan MD: [address] [place] [address], Ph. Attender: Ministerio Fagan MD [facility] Medical 04/22/2020 12:00:00 AM EDT [facility] ([facility]) Ministerio Fagan MD: [address] [place] [address], Ph. Attender: Ministerio Fagan MD [facility] Medical 04/22/2020 12:00:00 AM EDT [facility] ([facility]) Ministerio Fagan MD: [address] [place] [address]5 [address], Ph. Attender: Ministerio Fagan MD [facility] Medical 04/22/2020 12:00:00 AM EDT [facility] ([facility]) Ministerio Fagan MD: [address] [place] [address]2 [address], Ph. Attender: Ministerio Fagan MD [facility] Medical 04/22/2020 12:00:00 AM EDT [facility] ([facility]) Ministerio Fagan MD: [address] [place] [address]9 [address], Ph. Attender: Ministerio Fagan MD [facility] Medical 04/22/2020 12:00:00 AM EDT [facility] ([facility]) Ministerio Fagan MD: [address] [place] [address], Ph. Attender: Ministerio Fagan MD [facility] Medical 04/22/2020 12:00:00 AM EDT [facility] ([facility]) Ministerio Fagan MD: [address] [place] [address]0 [address], Ph. Attender: Ministerio Fagan MD [facility] 04/22/2020 12:00:00 AM EDT [facility] ([facility]) Emergency Attender: ERON DAVILAConsultant: Domonique ernst MD 04/19/2020 11:16:00 PM EDT - 04/20/2020 12:57:00 AM EDT [facility] Patient discharged. Outpatient Attender: Dori HARLEY FP 04/13/2020 04:4 3:00 PM EDT [facility] Outpatient Attender: CRICKET HARLEY FP 04/09/2020 09:28:01 A M EDT [facility] Outpatient Attender: Dori HARLEY FP 04/09/2020 09:2 8:00 AM EDT [facility] Outpatient Attender: CRICKET HARLEY FP 04/09/2020 08:41:05 A M EDT [facility] Outpatient Attender: Ines [email or web address] 03/29/2020 07:05:00 PM EDT [facility] ([facility], [facility]) Outpatient Attender: Arron JONCConsultant: Domonique Shell MDConsultant: Arron Machuca PA-C 01/17/2018 11:13:18 AM ED T [facility] Immunizations Vaccine Date Status Description Data Source(s) COVID-19 VACCINE Moderna 12/22/2020 12:00:00 AM EDT completed [facility] Vaccine Series Complete: YESThis Data wa s Submitted to [facility]. COVID-19 VACCINE Moderna 11/24/2020 12:00:00 AM EDT completed NYSIIS Vaccine Series Complete: NOThis Data was Submitted to [facility]. New in 2011. IIV4 05/12/2020 05:39:00 PM EST completed .5 mL [facility]Z ([facility]) New in 2011. IIV4 05/12/2020 05:39:00 PM EST completed .5 mL [facility] ([facility]) New in 2011. IIV4 05/12/2020 05:39:00 PM EST completed .5 mL [facility] ([facility]) New in 2011. IIV4 05/12/2020 05:39:00 PM EST completed .5 mL [facility] ([facility]) New in 2011. IIV4 05/12/2020 05:39:00 PM EST completed .5 mL [facility] ([facility]) New in 2011. IIV4 05/12/2020 05:39:00 PM EST completed .5 mL [facility] ([facility]) New in 2011. IIV4 05/12/2020 05:39:00 PM EST completed .5 mL [facility] ([facility]) New in 2011. IIV4 05/12/2020 05:39:00 PM EST completed .5 mL [facility] ([facility]) New in 2011. IIV4 05/12/2020 05:39:00 PM EST completed .5 mL [facility] ([facility]) New in 2011. IIV4 05/12/2020 05:39:00 PM EST completed .5 mL [facility] ([facility]) New in 2011. IIV4 05/12/2020 05:39:00 PM EST completed .5 mL [facility] ([facility]) New in 2011. IIV4 05/12/2020 05:39:00 PM EST completed .5 mL [facility] ([facility]) Medications Medication Brand Name Start Date Product Form Dose Route Admi nistrative Instructions Pharmacy Instructions Status Indications Reaction Description Data Source(s) Escitalopram 10 MG Oral Tablet ESCITALOPRAM OXALATE 02/14/2021 1 2:00:00 AM EDT tablet 30 TAKE ONE TABLET BY MOUTH EVERY D AY IN THE MORNING FOR 30 DAYS TAKE ONE TABLET BY MOUTH EVERY DAY IN THE MORNING FOR 30 DAYS SOLD: 02/14/2021 [facility] Escitalopram 10 MG Oral Tablet ESCITALOPRAM OXALATE 02/14/2021 1 2:00:00 AM EDT tablet 30 TAKE ONE TABLET BY MOUTH EVERY D AY IN THE MORNING FOR 30 DAYS TAKE ONE TABLET BY MOUTH EVERY DAY IN THE MORNING FOR 30 DAYS SOLD: 03/21/2021 [facility] Escitalopram 10 MG Oral Tablet [Lexapro] Lexapro 10 mg tablet Take 1 tablet every day by oral route in the morning for 30 days. Lexapro 10 mg tablet Take 1 tablet every day by oral route in the morning for 30 days. 02/14/2021 12:00:00 AM EDT 1 completed escitalopram 1 0 MG Oral Tablet [Lexapro] [facility] ([facility]) 50 mg 01/07/2021 12:00:00 AM EDT tablet 30 TAKE ONE TABLET BY MOUTH EVERY DAY TAKE ONE TABLET BY MOUTH EVERY DAY SOLD: 02/25/2021 [facility] 50 mg 01/07/2021 12:00:00 AM EDT tablet 30 TAKE ONE TABLET BY MOUTH EVERY DAY TAKE ONE TABLET BY MOUTH EVERY DAY SOLD: 01/20/2021 [facility] 5-325 mg 11/03/2020 12:00:00 AM EDT tablet 6 TAKE ONE TABLET BY MOUTH EVERY 12 HOURS NEEDED FOR PAIN MAXIMUM DAILY DOSE = 4 TABLETS TAKE ONE TABLET BY MOUTH EVERY 12 HOURS NEEDED FOR PAIN MAXIMUM DAILY DOSE = 4 TABLETS SOLD: 11/03/2020 [facility] Cyclobenzaprine hydrochloride 5 MG Oral Tablet CYCLOBENZAPRI NE HCL 11/03/2020 12:00:00 AM EDT tablet 15 TAKE 1 TABLET [5 MG] BY MOUTH THREE TIMES A DAY NEEDED FOR BACK PAIN TAKE 1 TABLET [5MG] BY MOUTH THREE TIMES A DAY NEEDED FOR BACK PAIN SOLD: 11/03/2020 [facility] 600 mg 11/03/2020 12:00:00 AM EDT tablet 15 TAKE ONE TABLET BY MOUTH THREE TIMES A DAY WITH FOOD FOR PAIN TAKE ONE TABLET BY MOUTH THREE TIMES A D AY WITH FOOD FOR PAIN SOLD: 11/04/2020 [facility] Paroxetine Hydrochloride 10 MG Oral Tablet PAROXETINE HCL 09/04/2020 12:00:00 AM EST tablet 30 TAKE ONE TABLET BY MOUTH CODIE DAY TAKE ONE TABLET BY MOUTH EVERY DAY SOLD: 09/04/2020 [facility] 50 mg 09/04/2020 12:00:00 AM EST tablet 30 TAKE ONE TABLET BY MOUTH EVERY DAY TAKE ONE TABLET BY MOUTH EVERY DAY SOLD: 10/08/2020 [facility] 50 mg 09/04/2020 12:00:00 AM EST tablet 30 TAKE ONE TABLET BY MOUTH EVERY DAY TAKE ONE TABLET BY MOUTH EVERY DAY SOLD: 11/27/2020 [facility] 50 mg 09/04/2020 12:00:00 AM EST tablet 30 TAKE ONE TABLET BY MOUTH EVERY DAY TAKE ONE TABLET BY MOUTH EVERY DAY SOLD: 09/04/2020 [facility] 50 mg 05/12/2020 12:00:00 AM EST tablet 15 TAKE ONE TABLET BY MOUTH EVERY DAY TAKE ONE TABLET BY MOUTH EVERY DAY SOLD: 05/12/2020 [facility] Paroxetine Hydrochloride 10 MG Oral Tablet PAROXETINE HCL 05/12/2020 12:00:00 AM EST tablet 30 TAKE ONE TABLET BY MOUTH CODIE TAKE ONE TABLET BY MOUTH EVERY DAY SOLD: 05/12/2020 [facility] 50 mg 05/12/2020 12:00:00 AM EST tablet 15 TAKE ONE TABLET BY MOUTH EVERY DAY TAKE ONE TABLET BY MOUTH EVERY DAY SOLD: 07/19/2020 [facility] 50 mg 05/12/2020 12:00:00 AM EST tablet 15 TAKE ONE TABLET BY MOUTH EVERY DAY TAKE ONE TABLET BY MOUTH EVERY DAY SOLD: 07/05/2020 [facility] Paroxetine Hydrochloride 10 MG Oral Tablet PAROXETINE HCL 05/12/2020 12:00:00 AM EST tablet 30 TAKE ONE TABLET BY MOUTH CODIE TAKE ONE TABLET BY MOUTH EVERY DAY SOLD: 08/11/2020 [facility] Paroxetine Hydrochloride 10 MG Oral Tablet PAROXETINE HCL 05/12/2020 12:00:00 AM EST tablet 30 TAKE ONE TABLET BY MOUTH CODIE TAKE ONE TABLET BY MOUTH EVERY DAY SOLD: 07/05/2020 [facility] 40 mg 04/30/2020 12:00:00 AM EDT capsule,delayed release (DR/EC) 60 TAKE ONE CAPSULE BY MOUTH TWICE A DAY TAKE ONE CAPSULE BY MOUTH TWICE A DAY SOLD: 09/15/2020 [facility] 40 mg 04/30/2020 12:00:00 AM EDT capsule,delayed release (DR/EC) 60 TAKE ONE CAPSULE BY MOUTH TWICE A DAY TAKE ONE CAPSULE BY MOUTH TWICE A DAY SOLD: 11/27/2020 [facility] 40 mg 04/30/2020 12:00:00 AM EDT capsule,delayed release (DR/EC) 60 TAKE ONE CAPSULE BY MOUTH TWICE A DAY TAKE ONE CAPSULE BY MOUTH TWICE A DAY SOLD: 05/12/2020 [facility] 40 mg 04/30/2020 12:00:00 AM EDT capsule,delayed release (DR/EC) 60 TAKE ONE CAPSULE BY MOUTH TWICE A DAY TAKE ONE CAPSULE BY MOUTH TWICE A DAY SOLD: 02/25/2021 [facility] 4 mg 04/22/2020 12:00:00 AM EDT tablets,dose pack 21 TAKE BY MOUTH DIRECTED TAKE BY MOUTH DIRECTED SOLD: 04/23/2020 [facility] 15 mg 04/22/2020 12:00:00 AM EDT tablet 30 TAKE ONE TABLET BY MOUTH EVERY DAY TAKE ONE TABLET BY MOUTH EVERY DAY SOLD: 04/23/2020 [facility] 350 mg 04/22/2020 12:00:00 AM EDT tablet 30 TAKE ONE TABLET BY MOUTH THREE TIMES A DAY NEEDED MAXIMUM DAILY DOSE = 3 TABLETS TAKE ONE TABLET BY MOUTH THREE TIMES A DAY NEEDED MAXIMUM DAILY DOSE = 3 TABLETS SOLD: 04/23/2020 [facility] Cyclobenzaprine hydrochloride 5 MG Oral Tablet CYCLOBENZAPRI NE HCL 04/20/2020 12:00:00 AM EDT tablet 15 TAKE ONE TABLET BY MOUTH THREE TIMES A DAY TAKE ONE TABLET BY MOUTH THREE TIMES A DAY SOLD: 04/20/2020 [facility] 600 mg 04/20/2020 12:00:00 AM EDT tablet 28 TAKE ONE TABLET BY MOUTH FOUR TIMES A DAY NEEDED FOR PAIN TAKE ONE TABLET BY MOUTH FOUR TIMES A DA Y NEEDED FOR PAIN SOLD: 04/20/2020 [facility] 5 % 04/20/2020 12:00:00 AM EDT adhesive patch,medicate d 7 APPLY 1 PATCH TO THE SKIN ONCE DAY (12 HOURS ON, 12 HOURS OFF) APPLY 1 PATCH TO THE SKIN ONCE DAY (12 HOURS ON, 12 HOURS OFF) SOLD: 04/20/2020 [facility] 875-125 mg 03/29/2020 12:00:00 AM EDT tablet 20 TAKE ONE TABLET BY MOUTH TWICE A DAY FOR 10 DAYS TAKE ONE TABLET BY MOUTH TWICE A DAY FOR 10 DAYS SOLD: 03/31/2020 [facility] No Active Medications 03/29/2020 12:00:00 AM EDT completed [facility] ([facility] [place], [facility]) Prednisone 20 MG Oral Tablet Prednisone 03/29/2020 12:00:00 AM EDT ORAL active MEDENT ([facility]) 60 ACTUAT Albuterol 0.09 MG/ACTUAT Metered Dose Inhaler Albu terol Sulfate HFA 03/29/2020 12:00:00 AM EDT RESPIRATORY active MED[facility] ([facility]) Amoxicillin 875 MG / Clavulanate 125 MG Oral Tablet Am oxicillin/Clavulanate Potassium 03/29/2020 12:00:00 AM EDT ORAL active MED[facility] ([facility]) 20 mg 03/29/2020 12:00:00 AM EDT tablet 10 TAKE ONE TABLET BY MOUTH TWICE A DAY FOR 5 DAYS TAKE ONE TABLET BY MOUTH TWICE A DAY FOR 5 DAYS SOLD: 2019 [facility] 90 mcg/actuation 02/13/2020 12:00:00 AM EDT HFA aerosol inha ler 8 INHALE TWO PUFFS BY MOUTH EVERY 4 HOURS NEEDED MAXIMUM DAILY DOSE = 8 PUFFS INHALE TWO PUFFS BY MOUTH EVERY 4 HOURS NEEDED MAXIMUM DAILY DOSE = 8 PUFFS SOLD: 03/31/2020 [facility] 40 mg 02/13/2020 12:00:00 AM EDT capsule,delayed release (DR/EC) 60 TAKE ONE CAPSULE BY MOUTH TWICE A DAY TAKE ONE CAPSULE BY MOUTH TWICE A DAY SOLD: 03/31/2020 [facility] albuterol sulfate HFA 90 mcg/actuation aerosol inhaler [id number] completed [id number] 200 ACTUAT albuterol 0.09 MG/ACTUAT Metered Dose Inhaler [facility]) Prednisone 20 MG Oral Tablet prednisone 20 mg tablet prednisone 20 mg tablet completed prednisone 20 MG Oral Tablet [facility]) Cyclobenzaprine hydrochloride 10 MG Oral Tablet cyclob enzaprine 10 mg tablet cyclobenzaprine 10 mg tablet completed cyclobenzaprine hydrochloride 10 MG Oral Tablet [facility]) tizanidine 4 MG Oral Capsule tizanidine 4 mg capsule tizanidine 4 mg capsule completed tizanidine 4 M G Oral Capsule [facility]) Ketorolac Tromethamine 10 MG Oral Tablet ketorolac 10 mg tablet ketorolac 10 mg tablet completed ketorolac trome thamine 10 MG Oral Tablet [facility]) lidocaine 5 % topical patch [id number] com pleted lidocaine 0.05 MG/MG Medicated Patch [facility]Z ([facility]) Amoxicillin 875 MG / Clavulanate 125 MG Oral Tablet amoxicillin 875 mg-potassium clavulanate 125 mg tablet amoxicillin 875 mg-potassium clavulanate 125 mg tablet completed amoxici llin 875 MG / clavulanate 125 MG Oral Tablet MAHNAZ ([facility]) Cyclobenzaprine hydrochloride 5 MG Oral Tablet cyclobe nzaprine 5 mg tablet cyclobenzaprine 5 mg tablet completed cyclobenzaprine hydrochloride 5 MG Oral Tablet [facility] ([facility]) Prednisone 20 MG Oral Tablet prednisone 20 mg tablet prednisone 20 mg tablet completed prednisone 20 MG Oral Tablet [facility] ([facility]) meloxicam 15 MG Oral Tablet meloxicam 15 mg tablet meloxicam 15 mg ta blet completed meloxicam 15 MG Oral Tablet [facility] ([facility]) Prednisone 20 MG Oral Tablet prednisone 20 mg tablet prednisone 20 mg tablet completed prednisone 20 MG Oral Tablet [facility] ([facility]) Ibuprofen 600 MG Oral Tablet ibuprofen 600 mg tablet ibuprofen 6 00 mg tablet completed ibuprofen 600 MG Oral Tablet [facility] ([facility]) Ibuprofen 600 MG Oral Tablet ibuprofen 6 00 mg tablet TAKE ONE TABLET BY MOUTH THREE TIMES A DAY WITH FOOD FOR PAIN ibuprofen 600 mg tablet TAKE ONE TABLET BY MOUTH THREE TIMES A DAY WITH FOOD FOR PAIN completed ibuprofen 600 MG Oral Tablet [facility] ([facility]) methylprednisolone 4 mg tablets in a dose pack [id number] completed methylprednisolone 4 mg tablets in a dose pack [facility] ([facility]) tizanidine 4 MG Oral Capsule tizanidine 4 mg capsule tizanidine 4 mg capsule completed tizanidine 4 M G Oral Capsule [facility] ([facility]) Ketorolac Tromethamine 10 MG Oral Tablet ketorolac 10 mg tablet ketorolac 10 mg tablet completed ketorolac trome thamine 10 MG Oral Tablet [facility] ([facility]) Naproxen 500 MG Oral Tablet naproxen 500 mg tablet naproxen 500 mg ta blet completed naproxen 500 MG Oral Tablet [facility] ([facility]) Prednisone 20 MG Oral Tablet prednisone 20 mg tablet prednisone 20 mg tablet completed prednisone 20 MG Oral Tablet [facility] ([facility]) methylprednisolone 4 mg tablets in a dose pack [id number] completed methylprednisolone 4 mg tablets in a dose pack [facility] ([facility]) Ketorolac Tromethamine 10 MG Oral Tablet ketorolac 10 mg tablet ketorolac 10 mg tablet completed ketorolac trome thamine 10 MG Oral Tablet [facility] ([facility]) lidocaine 5 % topical patch [id number] com pleted lidocaine 0.05 MG/MG Medicated Patch [facility] ([facility]) Amoxicillin 875 MG / Clavulanate 125 MG Oral Tablet amoxicillin 875 mg-potassium clavulanate 125 mg tablet amoxicillin 875 mg-potassium clavulanate 125 mg tablet completed amoxici llin 875 MG / clavulanate 125 MG Oral Tablet [facility] ([facility]) Carisoprodol 350 MG Oral Tablet carisoprodol 350 mg ta blet carisoprodol 350 mg tablet completed carisoprodol 35 0 MG Oral Tablet [facility] ([facility]) Ibuprofen 600 MG Oral Tablet ibuprofen 6 00 mg tablet TAKE ONE TABLET BY MOUTH THREE TIMES A DAY WITH FOOD FOR PAIN ibuprofen 600 mg tablet TAKE ONE TABLET BY MOUTH THREE TIMES A DAY WITH FOOD FOR PAIN completed ibuprofen 600 MG Oral Tablet [facility] ([facility]) Ketorolac Tromethamine 10 MG Oral Tablet ketorolac 10 mg tablet ketorolac 10 mg tablet completed ketorolac trome thamine 10 MG Oral Tablet [facility] ([facility]) Naproxen 500 MG Oral Tablet naproxen 500 mg tablet naproxen 500 mg ta blet completed naproxen 500 MG Oral Tablet [facility] ([facility]) Cyclobenzaprine hydrochloride 5 MG Oral Tablet cyclobe nzaprine 5 mg tablet cyclobenzaprine 5 mg tablet completed cyclobenzaprine hydrochloride 5 MG Oral Tablet [facility] ([facility]) Ketorolac Tromethamine 10 MG Oral Tablet ketorolac 10 mg tablet ketorolac 10 mg tablet completed ketorolac trome thamine 10 MG Oral Tablet [facility] ([facility]) Cyclobenzaprine hydrochloride 10 MG Oral Tablet cyclob enzaprine 10 mg tablet cyclobenzaprine 10 mg tablet completed cyclobenzaprine hydrochloride 10 MG Oral Tablet [facility] ([facility]) Cyclobenzaprine hydrochloride 10 MG Oral Tablet cyclob enzaprine 10 mg tablet cyclobenzaprine 10 mg tablet completed cyclobenzaprine hydrochloride 10 MG Oral Tablet [facility] ([facility]) Trazodone Hydrochloride 50 MG Oral Tablet trazodone 50 mg tablet trazodone 50 mg tablet completed trazodone hydr ochloride 50 MG Oral Tablet [facility] ([facility]) Prednisone 20 MG Oral Tablet prednisone 20 mg tablet prednisone 20 mg tablet completed prednisone 20 MG Oral Tablet [facility] ([facility]) tizanidine 4 MG Oral Capsule tizanidine 4 mg capsule tizanidine 4 mg capsule completed tizanidine 4 M G Oral Capsule [facility] ([facility]) Prednisone 20 MG Oral Tablet prednisone 20 mg tablet prednisone 20 mg tablet completed prednisone 20 MG Oral Tablet [facility] ([facility]) lidocaine 5 % topical patch [id number] com pleted lidocaine 0.05 MG/MG Medicated Patch [facility] ([facility]) Cyclobenzaprine hydrochloride 5 MG Oral Tablet cyclobe nzaprine 5 mg tablet cyclobenzaprine 5 mg tablet completed cyclobenzaprine hydrochloride 5 MG Oral Tablet [facility] ([facility]) Amoxicillin 875 MG / Clavulanate 125 MG Oral Tablet amoxicillin 875 mg-potassium clavulanate 125 mg tablet amoxicillin 875 mg-potassium clavulanate 125 mg tablet completed amoxici llin 875 MG / clavulanate 125 MG Oral Tablet [facility] ([facility]) Amoxicillin 875 MG / Clavulanate 125 MG Oral Tablet amoxicillin 875 mg-potassium clavulanate 125 mg tablet amoxicillin 875 mg-potassium clavulanate 125 mg tablet completed amoxici llin 875 MG / clavulanate 125 MG Oral Tablet [facility] ([facility]) Amoxicillin 875 MG / Clavulanate 125 MG Oral Tablet amoxicillin 875 mg-potassium clavulanate 125 mg tablet amoxicillin 875 mg-potassium clavulanate 125 mg tablet completed amoxici llin 875 MG / clavulanate 125 MG Oral Tablet [facility] ([facility]) Carisoprodol 350 MG Oral Tablet carisoprodol 350 mg ta blet carisoprodol 350 mg tablet completed carisoprodol 35 0 MG Oral Tablet [facility] ([facility]) tizanidine 4 MG Oral Capsule tizanidine 4 mg capsule tizanidine 4 mg capsule completed tizanidine 4 M G Oral Capsule [facility] ([facility]) Cyclobenzaprine hydrochloride 10 MG Oral Tablet cyclob enzaprine 10 mg tablet cyclobenzaprine 10 mg tablet completed cyclobenzaprine hydrochloride 10 MG Oral Tablet [facility] ([facility]) lidocaine 5 % topical patch [id number] com pleted lidocaine 0.05 MG/MG Medicated Patch [facility] ([facility]) Naproxen 500 MG Oral Tablet naproxen 500 mg tablet naproxen 500 mg ta blet completed naproxen 500 MG Oral Tablet [facility] ([facility]) Amoxicillin 875 MG / Clavulanate 125 MG Oral Tablet amoxicillin 875 mg-potassium clavulanate 125 mg tablet amoxicillin 875 mg-potassium clavulanate 125 mg tablet completed amoxici llin 875 MG / clavulanate 125 MG Oral Tablet [facility] ([facility]) tizanidine 4 MG Oral Capsule tizanidine 4 mg capsule tizanidine 4 mg capsule completed tizanidine 4 M G Oral Capsule [facility] ([facility]) tizanidine 4 MG Oral Capsule tizanidine 4 mg capsule tizanidine 4 mg capsule completed tizanidine 4 M G Oral Capsule [facility] ([facility]) tizanidine 4 MG Oral Capsule tizanidine 4 mg capsule tizanidine 4 mg capsule completed tizanidine 4 M G Oral Capsule [facility] ([facility]) methylprednisolone 4 mg tablets in a dose pack [id number] completed methylprednisolone 4 mg tablets in a dose pack [facility] ([facility]) tizanidine 4 MG Oral Capsule tizanidine 4 mg capsule tizanidine 4 mg capsule completed tizanidine 4 M G Oral Capsule [facility] ([facility]) albuterol sulfate HFA 90 mcg/actuation aerosol inhaler [id number] completed [id number] 200 ACTUAT albuterol 0.09 MG/ACTUAT Metered Dose Inhaler [facility] ([facility]) Ketorolac Tromethamine 10 MG Oral Tablet ketorolac 10 mg tablet ketorolac 10 mg tablet completed ketorolac trome thamine 10 MG Oral Tablet [facility] ([facility]) Naproxen 500 MG Oral Tablet naproxen 500 mg tablet naproxen 500 mg ta blet completed naproxen 500 MG Oral Tablet [facility] ([facility]) tizanidine 4 MG Oral Capsule tizanidine 4 mg capsule tizanidine 4 mg capsule completed tizanidine 4 M G Oral Capsule [facility] ([facility]) Acetaminophen 325 MG / Oxycodone Hydroch loride 5 MG Oral Tablet oxycodone- acetaminophen 5 mg-325 mg tablet TAKE ONE TABLET BY MOUTH EVERY 12 HOURS NEEDED FOR PAIN MAXIMUM DAILY DOSE 4 TABLETS oxycodone-acetaminophen 5 mg-325 mg tablet TAKE ONE TABLET BY MOUTH EVERY 12 HOURS NEEDED FOR PAIN MAXIMUM DAILY DOSE 4 TABLETS completed acetaminophen 325 MG / oxycodone hydrochloride 5 MG Oral Tablet [facility] ([facility]) tizanidine 4 MG Oral Capsule tizanidine 4 mg capsule tizanidine 4 mg capsule completed tizanidine 4 M G Oral Capsule [facility] ([facility]) meloxicam 15 MG Oral Tablet meloxicam 15 mg tablet Take 1 tablet every day by oral route. meloxicam 15 mg tablet Take 1 tablet every day by oral route. 1 completed meloxicam 15 MG Oral Tablet [facility] ([facility]) Trazodone Hydrochloride 50 MG Oral Tablet trazodone 50 mg tablet trazodone 50 mg tablet completed trazodone hydr ochloride 50 MG Oral Tablet [facility] ([facility]) Cyclobenzaprine hydrochloride 10 MG Oral Tablet cyclob enzaprine 10 mg tablet cyclobenzaprine 10 mg tablet completed cyclobenzaprine hydrochloride 10 MG Oral Tablet [facility] ([facility]) Ibuprofen 600 MG Oral Tablet ibuprofen 6 00 mg tablet TAKE ONE TABLET BY MOUTH THREE TIMES A DAY WITH FOOD FOR PAIN ibuprofen 600 mg tablet TAKE ONE TABLET BY MOUTH THREE TIMES A DAY WITH FOOD FOR PAIN completed ibuprofen 600 MG Oral Tablet [facility] ([facility]) Carisoprodol 350 MG Oral Tablet carisoprodol 350 mg ta blet carisoprodol 350 mg tablet completed carisoprodol 35 0 MG Oral Tablet [facility] ([facility]) Amoxicillin 875 MG / Clavulanate 125 MG Oral Tablet amoxicillin 875 mg-potassium clavulanate 125 mg tablet amoxicillin 875 mg-potassium clavulanate 125 mg tablet completed amoxici llin 875 MG / clavulanate 125 MG Oral Tablet [facility] ([facility]) Naproxen 500 MG Oral Tablet naproxen 500 mg tablet naproxen 500 mg ta blet completed naproxen 500 MG Oral Tablet [facility] ([facility]) Prednisone 20 MG Oral Tablet prednisone 20 mg tablet prednisone 20 mg tablet completed prednisone 20 MG Oral Tablet [facility] ([facility]) Ibuprofen 600 MG Oral Tablet ibuprofen 600 mg tablet ibuprofen 6 00 mg tablet completed ibuprofen 600 MG Oral Tablet [facility] ([facility]) Cyclobenzaprine hydrochloride 10 MG Oral Tablet cyclob enzaprine 10 mg tablet cyclobenzaprine 10 mg tablet completed cyclobenzaprine hydrochloride 10 MG Oral Tablet [facility] ([facility]) Trazodone Hydrochloride 50 MG Oral Tablet trazodone 50 mg tablet trazodone 50 mg tablet completed trazodone hydr ochloride 50 MG Oral Tablet [facility] ([facility]) albuterol sulfate HFA 90 mcg/actuation aerosol inhaler [id number] completed [id number] 200 ACTUAT albuterol 0.09 MG/ACTUAT Metered Dose Inhaler [facility] ([facility]) Ibuprofen 600 MG Oral Tablet ibuprofen 600 mg tablet ibuprofen 6 00 mg tablet completed ibuprofen 600 MG Oral Tablet [facility] ([facility]) methylprednisolone 4 mg tablets in a dose pack [id number] completed methylprednisolone 4 mg tablets in a dose pack [facility] ([facility]) Ibuprofen 600 MG Oral Tablet ibuprofen 6 00 mg tablet TAKE ONE TABLET BY MOUTH THREE TIMES A DAY WITH FOOD FOR PAIN ibuprofen 600 mg tablet TAKE ONE TABLET BY MOUTH THREE TIMES A DAY WITH FOOD FOR PAIN completed ibuprofen 600 MG Oral Tablet [facility] ([facility]) tizanidine 4 MG Oral Capsule tizanidine 4 mg capsule tizanidine 4 mg capsule completed tizanidine 4 M G Oral Capsule [facility] ([facility]) paroxetine 10 mg tablet TAKE ONE TABLET BY MOUTH EVERY DAY [id number] completed paroxetine hydrochloride 10 MG O ral Tablet [facility] ([facility]) albuterol sulfate HFA 90 mcg/actuation aerosol inhaler [id number] completed [id number] 200 ACTUAT albuterol 0.09 MG/ACTUAT Metered Dose Inhaler [facility] ([facility]) Ketorolac Tromethamine 10 MG Oral Tablet ketorolac 10 mg tablet ketorolac 10 mg tablet completed ketorolac trome thamine 10 MG Oral Tablet [facility] ([facility]) tizanidine 4 MG Oral Capsule tizanidine 4 mg capsule tizanidine 4 mg capsule completed tizanidine 4 M G Oral Capsule [facility] ([facility]) methylprednisolone 4 mg tablets in a dose pack [id number] completed methylprednisolone 4 mg tablets in a dose pack [facility] ([facility]) meloxicam 15 MG Oral Tablet meloxicam 15 mg tablet meloxicam 15 mg ta blet completed meloxicam 15 MG Oral Tablet [facility] ([facility]) Cyclobenzaprine hydrochloride 10 MG Oral Tablet cyclob enzaprine 10 mg tablet cyclobenzaprine 10 mg tablet completed cyclobenzaprine hydrochloride 10 MG Oral Tablet [facility] ([facility]) Ketorolac Tromethamine 10 MG Oral Tablet ketorolac 10 mg tablet ketorolac 10 mg tablet completed ketorolac trome thamine 10 MG Oral Tablet [facility] ([facility]) Cyclobenzaprine hydrochloride 5 MG Oral Tablet cyclobenzaprine 5 mg tablet TAKE 1 TABLET 5MG BY MOUTH THREE TIMES A DAY NEEDED FOR BACK PAIN cyclobenzaprine 5 mg tablet TAKE 1 TABLET 5MG BY MOUTH THREE TIMES A DAY NEEDED FOR BACK PAIN completed cyclobenzaprine hydrochloride 5 MG Oral Tablet [facility] ([facility]) meloxicam 15 MG Oral Tablet meloxicam 15 mg tablet Take 1 tablet every day by oral route. meloxicam 15 mg tablet Take 1 tablet every day by oral route. 1 completed meloxicam 15 MG Oral Tablet [facility] ([facility]) Carisoprodol 350 MG Oral Tablet carisoprodol 350 mg ta blet carisoprodol 350 mg tablet completed carisoprodol 35 0 MG Oral Tablet [facility] [facility] Cyclobenzaprine hydrochloride 5 MG Oral Tablet cyclobe nzaprine 5 mg tablet cyclobenzaprine 5 mg tablet completed cyclobenzaprine hydrochloride 5 MG Oral Tablet [facility] ([facility]) Ketorolac Tromethamine 10 MG Oral Tablet ketorolac 10 mg tablet ketorolac 10 mg tablet completed ketorolac trome thamine 10 MG Oral Tablet [facility] ([facility]) Amoxicillin 875 MG / Clavulanate 125 MG Oral Tablet amoxicillin 875 mg-potassium clavulanate 125 mg tablet amoxicillin 875 mg-potassium clavulanate 125 mg tablet completed amoxici llin 875 MG / clavulanate 125 MG Oral Tablet MAHNAZ ([facility]) Cyclobenzaprine hydrochloride 5 MG Oral Tablet cyclobenzaprine 5 mg tablet TAKE 1 TABLET 5MG BY MOUTH THREE TIMES A DAY NEEDED FOR BACK PAIN cyclobenzaprine 5 mg tablet TAKE 1 TABLET 5MG BY MOUTH THREE TIMES A DAY NEEDED FOR BACK PAIN completed cyclobenzaprine hydrochloride 5 MG Oral Tablet [facility] ([facility]) Carisoprodol 350 MG Oral Tablet carisoprodol 350 mg ta blet carisoprodol 350 mg tablet completed carisoprodol 35 0 MG Oral Tablet [facility] ([facility]) Naproxen 500 MG Oral Tablet naproxen 500 mg tablet naproxen 500 mg ta blet completed naproxen 500 MG Oral Tablet [facility] ([facility]) Carisoprodol 350 MG Oral Tablet carisoprodol 350 mg ta blet carisoprodol 350 mg tablet completed carisoprodol 35 0 MG Oral Tablet [facility] ([facility]) Ketorolac Tromethamine 10 MG Oral Tablet ketorolac 10 mg tablet ketorolac 10 mg tablet completed ketorolac trome thamine 10 MG Oral Tablet [facility] ([facility]) Ibuprofen 600 MG Oral Tablet ibuprofen 600 mg tablet ibuprofen 6 00 mg tablet completed ibuprofen 600 MG Oral Tablet [facility] ([facility]) Cyclobenzaprine hydrochloride 5 MG Oral Tablet cyclobe nzaprine 5 mg tablet cyclobenzaprine 5 mg tablet completed cyclobenzaprine hydrochloride 5 MG Oral Tablet [facility] ([facility]) Prednisone 20 MG Oral Tablet prednisone 20 mg tablet prednisone 20 mg tablet completed prednisone 20 MG Oral Tablet [facility] ([facility]) Cyclobenzaprine hydrochloride 10 MG Oral Tablet cyclob enzaprine 10 mg tablet cyclobenzaprine 10 mg tablet completed cyclobenzaprine hydrochloride 10 MG Oral Tablet [facility] ([facility]) meloxicam 15 MG Oral Tablet meloxicam 15 mg tablet meloxicam 15 mg ta blet completed meloxicam 15 MG Oral Tablet [facility] ([facility]) Naproxen 500 MG Oral Tablet naproxen 500 mg tablet naproxen 500 mg ta blet completed naproxen 500 MG Oral Tablet [facility] ([facility]) tizanidine 4 MG Oral Capsule tizanidine 4 mg capsule tizanidine 4 mg capsule completed tizanidine 4 M G Oral Capsule [facility] ([facility]) Amoxicillin 875 MG / Clavulanate 125 MG Oral Tablet amoxicillin 875 mg-potassium clavulanate 125 mg tablet amoxicillin 875 mg-potassium clavulanate 125 mg tablet completed amoxici llin 875 MG / clavulanate 125 MG Oral Tablet [facility] ([facility]) Carisoprodol 350 MG Oral Tablet carisoprodol 350 mg ta blet carisoprodol 350 mg tablet completed carisoprodol 35 0 MG Oral Tablet [facility] ([facility]) Cyclobenzaprine hydrochloride 5 MG Oral Tablet cyclobe nzaprine 5 mg tablet cyclobenzaprine 5 mg tablet completed cyclobenzaprine hydrochloride 5 MG Oral Tablet [facility] ([facility]) Cyclobenzaprine hydrochloride 5 MG Oral Tablet cyclobenzaprine 5 mg tablet TAKE 1 TABLET 5MG BY MOUTH THREE TIMES A DAY NEEDED FOR BACK PAIN cyclobenzaprine 5 mg tablet TAKE 1 TABLET 5MG BY MOUTH THREE TIMES A DAY NEEDED FOR BACK PAIN completed cyclobenzaprine hydrochloride 5 MG Oral Tablet [facility] ([facility]) Ketorolac Tromethamine 10 MG Oral Tablet ketorolac 10 mg tablet ketorolac 10 mg tablet completed ketorolac trome thamine 10 MG Oral Tablet [facility] ([facility]) Prednisone 20 MG Oral Tablet prednisone 20 mg tablet prednisone 20 mg tablet completed prednisone 20 MG Oral Tablet [facility] ([facility]) albuterol sulfate HFA 90 mcg/actuation aerosol inhaler [id number] completed [id number] 200 ACTUAT albuterol 0.09 MG/ACTUAT Metered Dose Inhaler [facility] ([facility]) meloxicam 15 MG Oral Tablet meloxicam 15 mg tablet Take 1 tablet every day by oral route. meloxicam 15 mg tablet Take 1 tablet every day by oral route. 1 completed meloxicam 15 MG Oral Tablet [facility] ([facility]) Cyclobenzaprine hydrochloride 5 MG Oral Tablet cyclobenzaprine 5 mg tablet TAKE 1 TABLET 5MG BY MOUTH THREE TIMES A DAY NEEDED FOR BACK PAIN cyclobenzaprine 5 mg tablet TAKE 1 TABLET 5MG BY MOUTH THREE TIMES A DAY NEEDED FOR BACK PAIN completed cyclobenzaprine hydrochloride 5 MG Oral Tablet [facility] ([facility]) Naproxen 500 MG Oral Tablet naproxen 500 mg tablet naproxen 500 mg ta blet completed naproxen 500 MG Oral Tablet [facility] ([facility]) Cyclobenzaprine hydrochloride 10 MG Oral Tablet cyclob enzaprine 10 mg tablet cyclobenzaprine 10 mg tablet completed cyclobenzaprine hydrochloride 10 MG Oral Tablet [facility] ([facility]) Ketorolac Tromethamine 10 MG Oral Tablet ketorolac 10 mg tablet ketorolac 10 mg tablet completed ketorolac trome thamine 10 MG Oral Tablet [facility] ([facility]) Naproxen 500 MG Oral Tablet naproxen 500 mg tablet naproxen 500 mg ta blet completed naproxen 500 MG Oral Tablet [facility] ([facility]) methylprednisolone 4 mg tablets in a dose pack [id number] completed methylprednisolone 4 mg tablets in a dose pack [facility] ([facility]) Acetaminophen 325 MG / Oxycodone Hydroch loride 5 MG Oral Tablet oxycodone- acetaminophen 5 mg-325 mg tablet TAKE ONE TABLET BY MOUTH EVERY 12 HOURS NEEDED FOR PAIN MAXIMUM DAILY DOSE 4 TABLETS oxycodone-acetaminophen 5 mg-325 mg tablet TAKE ONE TABLET BY MOUTH EVERY 12 HOURS NEEDED FOR PAIN MAXIMUM DAILY DOSE 4 TABLETS completed acetaminophen 325 MG / oxycodone hydrochloride 5 MG Oral Tablet [facility] ([facility]) paroxetine 10 mg tablet TAKE ONE TABLET BY MOUTH EVERY DAY [id number] completed paroxetine hydrochloride 10 MG O ral Tablet [facility] ([facility]) lidocaine 5 % topical patch [id number] com pleted lidocaine 0.05 MG/MG Medicated Patch [facility] ([facility]) methylprednisolone 4 mg tablets in a dose pack [id number] completed methylprednisolone 4 mg tablets in a dose pack [facility] ([facility]) meloxicam 15 MG Oral Tablet meloxicam 15 mg tablet meloxicam 15 mg ta blet completed meloxicam 15 MG Oral Tablet [facility] ([facility]) lidocaine 5 % topical patch [id number] com pleted lidocaine 0.05 MG/MG Medicated Patch [facility] ([facility]) Prednisone 20 MG Oral Tablet prednisone 20 mg tablet prednisone 20 mg tablet completed prednisone 20 MG Oral Tablet [facility] ([facility]) Amoxicillin 875 MG / Clavulanate 125 MG Oral Tablet amoxicillin 875 mg-potassium clavulanate 125 mg tablet amoxicillin 875 mg-potassium clavulanate 125 mg tablet completed amoxici llin 875 MG / clavulanate 125 MG Oral Tablet [facility] ([facility]) Cyclobenzaprine hydrochloride 10 MG Oral Tablet cyclob enzaprine 10 mg tablet cyclobenzaprine 10 mg tablet completed cyclobenzaprine hydrochloride 10 MG Oral Tablet [facility] ([facility]) tizanidine 4 MG Oral Capsule tizanidine 4 mg capsule tizanidine 4 mg capsule completed tizanidine 4 M G Oral Capsule [facility] ([facility]) lidocaine 5 % topical patch [id number] com pleted lidocaine 0.05 MG/MG Medicated Patch [facility] ([facility]) Amoxicillin 875 MG / Clavulanate 125 MG Oral Tablet amoxicillin 875 mg-potassium clavulanate 125 mg tablet amoxicillin 875 mg-potassium clavulanate 125 mg tablet completed amoxici llin 875 MG / clavulanate 125 MG Oral Tablet [facility] ([facility]) Prednisone 20 MG Oral Tablet prednisone 20 mg tablet prednisone 20 mg tablet completed prednisone 20 MG Oral Tablet [facility] ([facility]) Carisoprodol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 without Esophagitis Problem 04/29/2020 12:00:00 AM ED Nishant [facility] ([facility]) 298317291 Gastroesophageal reflux disease without esophagitis Gastroesophageal Reflux Disease without Esophagitis Problem 04/29/2020 12:00:00 AM ED Nishant [facility] ([facility]) 764676295 Gastroesophageal reflux disease without esophagitis Gastroesophageal Reflux Disease without Esophagitis Problem 04/29/2020 12:00:00 AM ED Nishant [facility] ([facility]) 475829418 Gastroesophageal reflux disease without esophagitis Gastroesophageal Reflux Disease without Esophagitis Problem 04/29/2020 12:00:00 AM ED Nishant [facility] ([facility]) 610413612 Gastroesophageal reflux disease without esophagitis Gastroesophageal Reflux Disease without Esophagitis Problem 04/29/2020 12:00:00 AM ED Nishant JOYA ([facility]) 583804994 Gastroesophageal reflux disease without esophagitis Gastroesophageal Reflux Disease without Esophagitis Problem 04/29/2020 12:00:00 AM ED T [facility] ([facility]) 438976761 Gastroesophageal reflux disease without esophagitis Gastroesophageal Reflux Disease without Esophagitis Problem 04/29/2020 12:00:00 AM ED T [facility] ([facility]) 465375551 Gastroesophageal reflux disease without esophagitis Gastroesophageal Reflux Disease without Esophagitis Problem 04/29/2020 12:00:00 AM ED T [facility] ([facility]) 04710981 Acute bronchitis, unspecified Acute bronchitis, unspec ified 04/09/2020 09:27:37 AM EDT [facility] 31214429 Acute bronchitis Acute Bronchitis Problem 04/09/2020 12 :00:00 AM EDT [place] ([facility]) 87946567 Acute bronchitis Acute Bronchitis Problem 04/09/2020 12 :00:00 AM EDT [place] ([facility]) 76995881 Acute bronchitis Acute Bronchitis Problem 04/09/2020 12 :00:00 AM EDT [place] ([facility]) 30876777 Acute bronchitis Acute Bronchitis Problem 04/09/2020 12 :00:00 AM EDT [place] ([facility]) 24210404 Acute bronchitis Acute Bronchitis Problem 04/09/2020 12 :00:00 AM EDT [place] ([facility]) 10956666 Acute bronchitis Acute Bronchitis Problem 04/09/2020 12 :00:00 AM EDT [place] ([facility]) 54642392 Acute bronchitis Acute Bronchitis Problem 04/09/2020 12 :00:00 AM EDT [place] ([facility]) 84723199 Acute bronchitis Acute Bronchitis Problem 04/09/2020 12 :00:00 AM EDT [place] ([facility]) 28152501 Acute bronchitis Acute Bronchitis Problem 04/09/2020 12 :00:00 AM EDT [place] ([facility]) 83860927 Acute bronchitis Acute Bronchitis Problem 04/09/2020 12 :00:00 AM EDT [facility] ([facility]) Surgeries/Procedures Procedure Description Date Indications Data Source(s) XR, sacrum + coccyx, 2 or more view 11/12/2020 12:00:0 0 AM EDT [facility] ([facility]) XR, thoracic spine 11/04/2020 12:00:00 AM EDT [facility] ([facility]) XR, lumbosacral spine, 2 or 3 view 11/04/2020 12:00:00 AM EDT [facility] ([facility]) XR, cervical spine, 4 or 5 view 11/04/2020 12:00:00 AM EDT [facility] ([facility]) XR, thoracic spine 11/04/2020 12:00:00 AM EDT [facility] ([facility]) XR, lumbosacral spine, 2 or 3 view 11/04/2020 12:00:00 AM EDT [facility] ([facility]) XR, cervical spine, 4 or 5 view 11/04/2020 12:00:00 AM EDT [facility] ([facility]) XR, thoracic spine 11/04/2020 12:00:00 AM EDT [place] ([facility]) XR, lumbosacral spine, 2 or 3 view 11/04/2020 12:00:00 AM EDT [facility] ([facility]) XR, cervical spine, 4 or 5 view 11/04/2020 12:00:00 AM EDT [place] ([facility]) XR, thoracic spine 11/04/2020 12:00:00 AM EDT [facility] ([facility]) XR, lumbosacral spine, 2 or 3 view 11/04/2020 12:00:00 AM EDT [place] ([facility]) XR, cervical spine, 4 or 5 view 11/04/2020 12:00:00 AM EDT [facility] ([facility]) XR, thoracic spine 11/04/2020 12:00:00 AM EDT [facility] ([facility]) XR, lumbosacral spine, 2 or 3 view 11/04/2020 12:00:00 AM EDT [facility] ([facility]) XR, cervical spine, 4 or 5 view 11/04/2020 12:00:00 AM EDT [facility] ([facility]) XR, thoracic spine 11/04/2020 12:00:00 AM EDT [facility] ([facility]) XR, lumbosacral spine, 2 or 3 view 11/04/2020 12:00:00 AM EDT [facility] ([facility]) XR, cervical spine, 4 or 5 view 11/04/2020 12:00:00 AM EDT [facility] ([facility]) XR, thoracic spine 11/04/2020 12:00:00 AM EDT [facility] ([facility]) XR, lumbosacral spine, 2 or 3 view 11/04/2020 12:00:00 AM EDT [facility] ([facility]) XR, cervical spine, 4 or 5 view 11/04/2020 12:00:00 AM EDT [facility] ([facility]) XR, thoracic spine 11/04/2020 12:00:00 AM EDT [facility] ([facility]) XR, lumbosacral spine, 2 or 3 view 11/04/2020 12:00:00 AM EDT [facility] ([facility]) XR, cervical spine, 4 or 5 view 11/04/2020 12:00:00 AM EDT [facility] ([facility]) XR, shoulder, 2 or more view 06/02/2020 12:00:00 AM ES T [facility] ([facility]) XR, shoulder, 2 or more view 06/02/2020 12:00:00 AM ES T [facility] ([facility]) XR, shoulder, 2 or more view 06/02/2020 12:00:00 AM ES T [facility] ([facility]) XR, shoulder, 2 or more view 06/02/2020 12:00:00 AM ES T [facility] ([facility]) XR, shoulder, 2 or more view 06/02/2020 12:00:00 AM ES T [facility] ([facility]) XR, shoulder, 2 or more view 06/02/2020 12:00:00 AM ES T [facility] ([facility]) XR, shoulder, 2 or more view 06/02/2020 12:00:00 AM ES T [facility] ([facility]) XR, shoulder, 2 or more view 06/02/2020 12:00:00 AM ES T [facility] ([facility]) XR, shoulder, 2 or more view 06/02/2020 12:00:00 AM ES T [facility] ([facility]) XR, shoulder, 2 or more view 06/02/2020 12:00:00 AM DARVIN JOYA ([facility]) XR, shoulder, 2 or more view 06/02/2020 12:00:00 AM DARVIN JOYA ([facility]) MRI SPINAL CANAL LUMBAR W/O CONTRAST MATERIAL <td>MRI LUMBAR SPINE WO CONTRAST</td><td>Routine</td><td>05/24/2020 3:31 PM EST</td><td> Spinal stenosis of lumbar region with neurogenic claudication Chronic midline low back pain without sciatica Lumbar foraminal stenosis DDD (degenerative disc disease), lumbar</td><td> </td> 05/24/2020 08:31:19 PM EST DDD (degenerative disc disease), lumbarL umbar foraminal stenosisChronic midline low back pain without sciaticaSpinal stenosis of lumbar region with neurogenic claudication [facility] DDD (degenerative disc disease), lumbar Lumbar foraminal stenosis Chronic midline low back pain without sc iatica Spinal stenosis of lumbar region with ne urogenic claudication XR SPINE-ENTIRE THORACIC AND LUMBAR- 2 OR 3 VIEW 7208 2 <td>XR SPINE-ENTIRE THORACIC AND LUMBAR- 2 OR 3 VIEW 97047</td><td>Routine</td><td>05/07/2020 9:25 AM EST</td><td> Spinal stenosis of lumbar region with neurogenic claudication Chronic midline low back pain, unspecified whether sciatica present Lumbar foraminal stenosis DDD (degenerative disc disease), lumbar</td><td> </td> 05/07/2020 09:25:00 AM EST DDD (degenerative disc disease), lumbarL umbar foraminal stenosisChronic midline low back pain, unspecified whether sciatica presentSpinal stenosis of lumbar region with neurogenic claudication [facility] DDD (degenerative disc disease), lumbar Lumbar foraminal stenosis Chronic midline low back pain, unspecifi ed whether sciatica present Spinal stenosis of lumbar region with ne urogenic claudication RADEX SPINE LUMBOSACRAL MINIMUM 4 VIEWS <td>XR SPINE L UMBAR 4-MORE VIEWS 97635</td><td>Routine</td><td>05/07/2020 9:25 AM EST</td><td> Spinal stenosis of lumbar region with neurogenic claudication Chronic midline low back pain, unspecified whether sciatica present Lumbar foraminal stenosis DDD (degenerative disc disease), lumbar</td><td> </td> 05/07/2020 09:25:00 AM EST DDD (degenerative disc disease), lumbarL umbar foraminal stenosisChronic midline low back pain, unspecified whether sciatica presentSpinal stenosis of lumbar region with neurogenic claudication [facility] DDD (degenerative disc disease), lumbar Lumbar foraminal stenosis Chronic midline low back pain, unspecifi ed whether sciatica present Spinal stenosis of lumbar region with ne urogenic claudication RADIOLOGIC EXAMINATION PELVIS 1/2 VIEWS <td>XR PELVIS 1-2 VIEWS 39546</td><td>Routine</td><td>05/07/2020 9:17 AM EST</td><td> Spinal stenosis of lumbar region with neurogenic claudication Chronic midline low back pain, unspecified whether sciatica present Lumbar foraminal stenosis DDD (degenerative disc disease), lumbar</td><td> </td> 05/07/2020 09:17:00 AM EST DDD (degenerative disc disease), lumbarL umbar foraminal stenosisChronic midline low back pain, unspecified whether sciatica presentSpinal stenosis of lumbar region with neurogenic claudication [facility] DDD (degenerative disc disease), lumbar Lumbar foraminal stenosis Chronic midline low back pain, unspecifi ed whether sciatica present Spinal stenosis of lumbar region with ne urogenic claudication Results ID Date Data Source [id number] 05/24/2020 03:55:24 PM EST [address] [address]Cdtspjd Name: RAVI WARREN: 1990Sex: FOrderant Provider: AUGUSTO Valdes Prov: AUGUSTO Sanchez Provider: AUGUSTO Girmm Performed: MRI LUMBAR SPINE WO CONTRASTExam Date: 05/24/2020 15:31MRN: [id number] Number: [id number] Class: OutpatientAccount #: [id number] [id number] Exam: L/S- spine stenosisDDD / StenosisTechnique: MRI images obtained on a 1.5 haritha scanner.Comparison: July 25, 2019Findings: The alignment is intact. There is no pathologic signal abnormality of the lumbar vertebra. 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 Conus is normal terminating at the L1 level.T12-L1: Normal.L1-2: Normal.L2-3: Small broad-based disc protrusion with posterior annular fissure is present extending slightly asymmetric to the left. This results in minimal mass effect upon the thecal sac. No significant spinal or foraminal stenosis. No significant change from prior study.L3-4: There is a small central disc protrusion. The size of the disc protrusion has decreased slightly from the previous exam. Minimal ventral flattening of the thecal sac is noted. The spinal canal and neural foramen are patent.L4-5: There is a central disc protrusion indenting the ventral margin of the thecal sac. The size of the disc protrusion is minimally increased from the previous examination. This abuts but does not significantly displace the L5 nerve root as it exits the thecal sac on the left. The neural foramen are widely patent bilaterally.L5-S1: There is a broad-based central disc protrusion. The disc protrusion has increased slightly in size from the previous study. There is no mass effect upon the exiting S1 nerve roots. The spinal canal is capacious at this level. The neural foramen are widely patent. L5 nerve roots exit without impingement.IMPRESSION: Slight interval increase in size of disc protrusion at L4-5 which abuts but does not significantly displace the left L5 nerve root within the lateral recess.Slight interval increase in disc protrusion at L5-S1 without evidence of neural impingement.Decreased size of central disc protrusion at L3-4. No change in small broad-based disc protrusion at L2-3.Report electronically signed by: MARLINE HOOKS On 05/24/2020 3:55 PMWorkstation ID: [id number] - [id number] Name Value Range Interpretation Code Description Data Demetrice rce(s) Supporting Document(s) ID Date Data Source [id number] 05/18/2020 05:51:00 AM EST [facility] ([facility]) Name Value Range Interpretation Code Description Data Demetrice rce(s) Supporting Document(s) glucose, fasting 142 mg/dL 70-100 Above high normal Glucose, Fas ting MAHNAZ ([facility]) creatinine for GFR 0.73 mg/dL 0.55-1.30 Creatinine for GF R MAHNAZ ([facility]) blood urea nitrogen 5 mg/dL 7-18 Below low normal Blood Urea Nitrogen MAHNAZ ([facility]) glomerular filtration rate > 60.0 >60 Glomerula r Filtration Rate MAHNAZ ([facility]) potassium serum 3.6 mEq/L 3.5-5.1 Potassium Serum ATH NA ([facility]) sodium level 141 mEq/L 136-145 Sodium Level MAHNAZ (No [facility]) carbon dioxide level 22 mEq/L 21-32 Carbon Dioxide Level [place] ([facility]) anion gap 5 mEq/L 8-16 Below low normal Anion Gap [place] ( [facility]) chloride level 114 mEq/L 98-107 Above high normal Chloride Level [place] ([facility]) calcium level 8.0 mg/dL 8.5-10.1 Below low normal Calcium Level AT [facility] ([facility]) ID Date Data Source [id number] 05/18/2020 05:51:00 AM EST MAHNAZ ([facility]) Name Value Range Interpretation Code Description Data Demetrice rce(s) Supporting Document(s) white blood count 7.7 10 4.0-10.0 White Blood Count [place] ([facility]) hemoglobin 11.6 g/dL 12.0-15.5 Below low normal Hemoglobin MAHNAZ ( [facility]) red blood count 3.92 10 4.00-5.40 Below low normal Red Blood Coun t MAHNAZ ([facility]) hematocrit 36.4 % 36.0-47.0 Hematocrit MAHNAZ ([facility]) mean corpuscular volume 92.9 fL 80.0-96.0 Mean Corpusc ular Volume [place] ([facility]) mean corpuscular hemoglobin 29.6 pg 27.0-33.0 Mean Cor puscular Hemoglobin MAHNAZ ([facility]) red cell distribution width 14.3 % 11.5-14.5 Red Cell Distribution Width MAHNAZ ([facility]) mean corpuscular HGB conc 31.9 g/dL 32.0-36.5 Below low eduardo l Mean Corpuscular HGB Conc MAHNAZ ([facility]) platelet count, automated 228 10 150-450 Platelet C ount, Automated MAHNAZ ([facility]) nucleated red blood cell % 0.0 % 0-0 Nucleated Red Blood Cell % MAHNAZ ([facility]) ID Date Data Source [id number] 05/18/2020 05:51:00 AM EST [place] ([facility]) Name Value Range Interpretation Code Description Data Demetrice rce(s) Supporting Document(s) glucose, fasting 142 mg/dL 70-100 Above high normal Glucose, Fas ting [place] ([facility]) creatinine for GFR 0.73 mg/dL 0.55-1.30 Creatinine for GF R [place] ([facility]) blood urea nitrogen 5 mg/dL 7-18 Below low normal Blood Urea Nitrogen [place] ([facility]) potassium serum 3.6 mEq/L 3.5-5.1 Potassium Serum ATH NA ([facility]) sodium level 141 mEq/L 136-145 Sodium Level MAHNAZ (No [facility]) glomerular filtration rate > 60.0 >60 Glomerula r Filtration Rate MAHNAZ ([facility]) chloride level 114 mEq/L 98-107 Above high normal Chloride Level [place] ([facility]) carbon dioxide level 22 mEq/L 21-32 Carbon Dioxide Level MAHNAZ ([facility]) calcium level 8.0 mg/dL 8.5-10.1 Below low normal Calcium Level AT [facility]) anion gap 5 mEq/L 8-16 Below low normal Anion Gap [place] ( [facility]) ID Date Data Source [id number] 05/18/2020 05:51:00 AM EST [place] ([facility]) Name Value Range Interpretation Code Description Data Demetrice rce(s) Supporting Document(s) white blood count 7.7 10 4.0-10.0 White Blood Count MAHNAZ ([facility]) hematocrit 36.4 % 36.0-47.0 Hematocrit MAHNAZ ([facility]) hemoglobin 11.6 g/dL 12.0-15.5 Below low normal Hemoglobin MAHNAZ ( [facility]) red blood count 3.92 10 4.00-5.40 Below low normal Red Blood Coun t MAHNAZ ([facility]) mean corpuscular volume 92.9 fL 80.0-96.0 Mean Corpusc ular Volume [place] ([facility]) mean corpuscular hemoglobin 29.6 pg 27.0-33.0 Mean Cor puscular Hemoglobin [place] ([facility]) red cell distribution width 14.3 % 11.5-14.5 Red Cell Distribution Width [place] ([facility]) platelet count, automated 228 10 150-450 Platelet C ount, Automated MAHNAZ ([facility]) mean corpuscular HGB conc 31.9 g/dL 32.0-36.5 Below low eduardo l Mean Corpuscular HGB Conc [place] ([facility]) nucleated red blood cell % 0.0 % 0-0 Nucleated Red Blood Cell % [place] ([facility]) ID Date Data Source [id number] 05/18/2020 05:51:00 AM EST [place] ([facility]) Name Value Range Interpretation Code Description Data Demetrice rce(s) Supporting Document(s) glucose, fasting 142 mg/dL 70-100 Above high normal Glucose, Fas ting MAHNAZ ([facility]) blood urea nitrogen 5 mg/dL 7-18 Below low normal Blood Urea Nitrogen MAH[place]Z ([facility]) creatinine for GFR 0.73 mg/dL 0.55-1.30 Creatinine for GF R [place] ([facility]) glomerular filtration rate > 60.0 >60 Glomerula r Filtration Rate MAHNAZ ([facility]) potassium serum 3.6 mEq/L 3.5-5.1 Potassium Serum ATH NA ([facility]) sodium level 141 mEq/L 136-145 Sodium Level MAHNAZ (No [facility]) chloride level 114 mEq/L 98-107 Above high normal Chloride Level MAHNAZ ([facility]) carbon dioxide level 22 mEq/L 21-32 Carbon Dioxide Level MAHNAZ ([facility]) anion gap 5 mEq/L 8-16 Below low normal Anion Gap MAH[place]Z ( [facility]) calcium level 8.0 mg/dL 8.5-10.1 Below low normal Calcium Level AT [facility] ([facility]) ID Date Data Source [id number] 05/18/2020 05:51:00 AM EST [place] ([facility]) Name Value Range Interpretation Code Description Data Demetrice rce(s) Supporting Document(s) white blood count 7.7 10 4.0-10.0 White Blood Count MAH[place]Z ([facility]) hemoglobin 11.6 g/dL 12.0-15.5 Below low normal Hemoglobin MAHNAZ ( [facility]) red blood count 3.92 10 4.00-5.40 Below low normal Red Blood Coun t MAHNAZ ([facility]) mean corpuscular hemoglobin 29.6 pg 27.0-33.0 Mean Cor puscular Hemoglobin MAHNAZ ([facility]) mean corpuscular volume 92.9 fL 80.0-96.0 Mean Corpusc ular Volume MAHNAZ ([facility]) hematocrit 36.4 % 36.0-47.0 Hematocrit MAH[facility]Z ([facility]) mean corpuscular HGB conc 31.9 g/dL 32.0-36.5 Below low eduardo l Mean Corpuscular HGB Conc MAHNAZ ([facility]) platelet count, automated 228 10 150-450 Platelet C ount, Automated MAH[place]Z ([facility]) red cell distribution width 14.3 % 11.5-14.5 Red Cell Distribution Width [facility]H[place]Z ([facility]) nucleated red blood cell % 0.0 % 0-0 Nucleated Red Blood Cell % [facility]H[place]Z ([facility]) ID Date Data Source [id number] 05/18/2020 05:51:00 AM EST [place]Z ([facility]) Name Value Range Interpretation Code Description Data Demetrice rce(s) Supporting Document(s) glucose, fasting 142 mg/dL 70-100 Above high normal Glucose, Fas ting MAHNAZ ([facility]) blood urea nitrogen 5 mg/dL 7-18 Below low normal Blood Urea Nitrogen MAH[facility]Z ([facility]) sodium level 141 mEq/L 136-145 Sodium Level MAHNAZ (No [facility]) glomerular filtration rate > 60.0 >60 Glomerula r Filtration Rate MAHNAZ ([facility]) creatinine for GFR 0.73 mg/dL 0.55-1.30 Creatinine for GF R MAHNAZ ([facility]) chloride level 114 mEq/L 98-107 Above high normal Chloride Level MAHNAZ ([facility]) carbon dioxide level 22 mEq/L 21-32 Carbon Dioxide Level [place] ([facility]) potassium serum 3.6 mEq/L 3.5-5.1 Potassium Serum ATH NA ([facility]) calcium level 8.0 mg/dL 8.5-10.1 Below low normal Calcium Level AT [facility]) anion gap 5 mEq/L 8-16 Below low normal Anion Gap [place] ( [facility]) ID Date Data Source [id number] 05/18/2020 05:51:00 AM EST MAH[place]Z ([facility]) Name Value Range Interpretation Code Description Data Demetrice rce(s) Supporting Document(s) white blood count 7.7 10 4.0-10.0 White Blood Count MAH[place]Z ([facility]) hemoglobin 11.6 g/dL 12.0-15.5 Below low normal Hemoglobin MAHNAZ ( [facility]) red blood count 3.92 10 4.00-5.40 Below low normal Red Blood Coun t MAHNAZ ([facility]) hematocrit 36.4 % 36.0-47.0 Hematocrit MAHNAZ ([facility]) mean corpuscular volume 92.9 fL 80.0-96.0 Mean Corpusc ular Volume MAHNAZ ([facility]) mean corpuscular hemoglobin 29.6 pg 27.0-33.0 Mean Cor puscular Hemoglobin [place] ([facility]) mean corpuscular HGB conc 31.9 g/dL 32.0-36.5 Below low eduardo l Mean Corpuscular HGB Conc MAHNAZ ([facility]) red cell distribution width 14.3 % 11.5-14.5 Red Cell Distribution Width MAH[place]Z ([facility]) nucleated red blood cell % 0.0 % 0-0 Nucleated Red Blood Cell % MAH[place]Z ([facility]) platelet count, automated 228 10 150-450 Platelet C ount, Automated [place] ([facility]) ID Date Data Source [id number] 05/18/2020 05:51:00 AM EST [facility]) Name Value Range Interpretation Code Description Data Demetrice rce(s) Supporting Document(s) glucose, fasting 142 mg/dL 70-100 Above high normal Glucose, Fas ting MAHNAZ ([facility]) creatinine for GFR 0.73 mg/dL 0.55-1.30 Creatinine for GF R [place] ([facility]) glomerular filtration rate > 60.0 >60 Glomerula r Filtration Rate [place] ([facility]) blood urea nitrogen 5 mg/dL 7-18 Below low normal Blood Urea Nitrogen MAH[place]Z ([facility]) sodium level 141 mEq/L 136-145 Sodium Level MAH[facility]Z ([facility]) carbon dioxide level 22 mEq/L 21-32 Carbon Dioxide Level MAHNAZ ([facility]) chloride level 114 mEq/L 98-107 Above high normal Chloride Level [place] ([facility]) potassium serum 3.6 mEq/L 3.5-5.1 Potassium Serum ATH NA ([facility]) anion gap 5 mEq/L 8-16 Below low normal Anion Gap [place] ( [facility]) calcium level 8.0 mg/dL 8.5-10.1 Below low normal Calcium Level AT [facility]) ID Date Data Source [id number] 05/18/2020 05:51:00 AM EST [place] ([facility]) Name Value Range Interpretation Code Description Data Demetrice rce(s) Supporting Document(s) red blood count 3.92 10 4.00-5.40 Below low normal Red Blood Coun t [place] ([facility]) white blood count 7.7 10 4.0-10.0 White Blood Count [place] ([facility]) hematocrit 36.4 % 36.0-47.0 Hematocrit [place] ([facility]) hemoglobin 11.6 g/dL 12.0-15.5 Below low normal Hemoglobin [place] ( [facility]) mean corpuscular hemoglobin 29.6 pg 27.0-33.0 Mean Cor puscular Hemoglobin [place] ([facility]) mean corpuscular HGB conc 31.9 g/dL 32.0-36.5 Below low eduardo l Mean Corpuscular HGB Conc [place] ([facility]) mean corpuscular volume 92.9 fL 80.0-96.0 Mean Corpusc ular Volume [place] ([facility]) red cell distribution width 14.3 % 11.5-14.5 Red Cell Distribution Width [place] ([facility]) platelet count, automated 228 10 150-450 Platelet C ount, Automated [place] ([facility]) nucleated red blood cell % 0.0 % 0-0 Nucleated Red Blood Cell % [place] ([facility]) ID Date Data Source [id number] 05/18/2020 05:51:00 AM EST MAH[place]Z ([facility]) Name Value Range Interpretation Code Description Data Demetrice rce(s) Supporting Document(s) glucose, fasting 142 mg/dL 70-100 Above high normal Glucose, Fas ting [place] ([facility]) blood urea nitrogen 5 mg/dL 7-18 Below low normal Blood Urea Nitrogen [place] ([facility]) creatinine for GFR 0.73 mg/dL 0.55-1.30 Creatinine for GF R [place] ([facility]) glomerular filtration rate > 60.0 >60 Glomerula r Filtration Rate MAHNAZ ([facility]) potassium serum 3.6 mEq/L 3.5-5.1 Potassium Serum ATHE NA ([facility]) sodium level 141 mEq/L 136-145 Sodium Level MAHNAZ (No [facility]) anion gap 5 mEq/L 8-16 Below low normal Anion Gap MAHNAZ ( [facility]) chloride level 114 mEq/L 98-107 Above high normal Chloride Level MAH[place]Z ([facility]) carbon dioxide level 22 mEq/L 21-32 Carbon Dioxide Level [place] ([facility]) calcium level 8.0 mg/dL 8.5-10.1 Below low normal Calcium Level AT [facility]) ID Date Data Source [id number] 05/18/2020 05:51:00 AM EST [facility]) Name Value Range Interpretation Code Description Data Demetrice rce(s) Supporting Document(s) white blood count 7.7 10 4.0-10.0 White Blood Count [facility]Z ([facility]) hemoglobin 11.6 g/dL 12.0-15.5 Below low normal Hemoglobin [facility]Z ( [facility]) red blood count 3.92 10 4.00-5.40 Below low normal Red Blood Coun t [facility]Z ([facility]) hematocrit 36.4 % 36.0-47.0 Hematocrit [facility]H[place]Z ([facility]) mean corpuscular volume 92.9 fL 80.0-96.0 Mean Corpusc ular Volume [facility]H[place]Z ([facility]) mean corpuscular hemoglobin 29.6 pg 27.0-33.0 Mean Cor puscular Hemoglobin [facility]H[place]Z ([facility]) mean corpuscular HGB conc 31.9 g/dL 32.0-36.5 Below low eduardo l Mean Corpuscular HGB Conc [facility]Z ([facility]) platelet count, automated 228 10 150-450 Platelet C ount, Automated [place] ([facility]) red cell distribution width 14.3 % 11.5-14.5 Red Cell Distribution Width [facility] ([facility]) nucleated red blood cell % 0.0 % 0-0 Nucleated Red Blood Cell % [facility] ([facility]) ID Date Data Source [id number] 05/18/2020 05:51:00 AM EST [place] ([facility]) Name Value Range Interpretation Code Description Data Demetrice rce(s) Supporting Document(s) glucose, fasting 142 mg/dL 70-100 Above high normal Glucose, Fas ting [facility]H[place]Z ([facility]) creatinine for GFR 0.73 mg/dL 0.55-1.30 Creatinine for GF R MAHNAZ ([facility]) blood urea nitrogen 5 mg/dL 7-18 Below low normal Blood Urea Nitrogen [facility]Z ([facility]) glomerular filtration rate > 60.0 >60 Glomerula r Filtration Rate [facility]H[place]Z ([facility]) sodium level 141 mEq/L 136-145 Sodium Level [facility]Z (No [facility]) chloride level 114 mEq/L 98-107 Above high normal Chloride Level [facility]Z ([facility]) potassium serum 3.6 mEq/L 3.5-5.1 Potassium Serum ATHE NA ([facility]) anion gap 5 mEq/L 8-16 Below low normal Anion Gap [facility]Z ( [facility]) carbon dioxide level 22 mEq/L 21-32 Carbon Dioxide Level [place] ([facility]) calcium level 8.0 mg/dL 8.5-10.1 Below low normal Calcium Level AT [facility] ([facility]) ID Date Data Source [id number] 05/18/2020 05:51:00 AM EST [place] ([facility]) Name Value Range Interpretation Code Description Data Demetrice rce(s) Supporting Document(s) white blood count 7.7 10 4.0-10.0 White Blood Count [facility]H[place]Z ([facility]) red blood count 3.92 10 4.00-5.40 Below low normal Red Blood Coun t [place] ([facility]) hematocrit 36.4 % 36.0-47.0 Hematocrit [facility]H[place]Z ([facility]) mean corpuscular hemoglobin 29.6 pg 27.0-33.0 Mean Cor puscular Hemoglobin [facility]H[place]Z ([facility]) mean corpuscular HGB conc 31.9 g/dL 32.0-36.5 Below low eduardo l Mean Corpuscular HGB Conc [facility]Z ([facility]) mean corpuscular volume 92.9 fL 80.0-96.0 Mean Corpusc ular Volume [facility]Z ([facility]) red cell distribution width 14.3 % 11.5-14.5 Red Cell Distribution Width [facility]Z ([facility]) platelet count, automated 228 10 150-450 Platelet C ount, Automated [place]Z ([facility]) nucleated red blood cell % 0.0 % 0-0 Nucleated Red Blood Cell % [facility] ([facility]) ID Date Data Source [id number] 05/18/2020 05:51:00 AM EST [facility]) Name Value Range Interpretation Code Description Data Demetrice rce(s) Supporting Document(s) glucose, fasting 142 mg/dL 70-100 Above high normal Glucose, Fas ting [facility]H[place]Z ([facility]) blood urea nitrogen 5 mg/dL 7-18 Below low normal Blood Urea Nitrogen [place] ([facility]) glomerular filtration rate > 60.0 >60 Glomerula r Filtration Rate [place] ([facility]) creatinine for GFR 0.73 mg/dL 0.55-1.30 Creatinine for GF R MAH[place]Z ([facility]) sodium level 141 mEq/L 136-145 Sodium Level [facility]Z (No [facility]) carbon dioxide level 22 mEq/L 21-32 Carbon Dioxide Level MAHNAZ ([facility]) chloride level 114 mEq/L 98-107 Above high normal Chloride Level [place] ([facility]) potassium serum 3.6 mEq/L 3.5-5.1 Potassium Serum [facility]) calcium level 8.0 mg/dL 8.5-10.1 Below low normal Calcium Level AT [facility]) anion gap 5 mEq/L 8-16 Below low normal Anion Gap [place] ( [facility]) ID Date Data Source [id number] 05/18/2020 05:51:00 AM EST [place] ([facility]) Name Value Range Interpretation Code Description Data Demetrice rce(s) Supporting Document(s) white blood count 7.7 10 4.0-10.0 White Blood Count [place] ([facility]) hemoglobin 11.6 g/dL 12.0-15.5 Below low normal Hemoglobin [place] ( [facility]) hematocrit 36.4 % 36.0-47.0 Hematocrit [place] ([facility]) red blood count 3.92 10 4.00-5.40 Below low normal Red Blood Coun t [place] ([facility]) mean corpuscular hemoglobin 29.6 pg 27.0-33.0 Mean Cor puscular Hemoglobin [place] ([facility]) mean corpuscular volume 92.9 fL 80.0-96.0 Mean Corpusc ular Volume [place] ([facility]) mean corpuscular HGB conc 31.9 g/dL 32.0-36.5 Below low eduardo l Mean Corpuscular HGB Conc [place] ([facility]) red cell distribution width 14.3 % 11.5-14.5 Red Cell Distribution Width [place] ([facility]) platelet count, automated 228 10 150-450 Platelet C ount, Automated [place] ([facility]) nucleated red blood cell % 0.0 % 0-0 Nucleated Red Blood Cell % [place] ([facility]) ID Date Data Source [id number] 05/18/2020 05:51:00 AM EST [place] ([facility]) Name Value Range Interpretation Code Description Data Demetrice rce(s) Supporting Document(s) blood urea nitrogen 5 mg/dL 7-18 Below low normal Blood Urea Nitrogen [place] ([facility]) creatinine for GFR 0.73 mg/dL 0.55-1.30 Creatinine for GF R [place] ([facility]) glucose, fasting 142 mg/dL 70-100 Above high normal Glucose, Fas ting [facility]) potassium serum 3.6 mEq/L 3.5-5.1 Potassium Serum ATHE NA ([facility]) glomerular filtration rate > 60.0 >60 Glomerula r Filtration Rate [facility]H[place]Z ([facility]) sodium level 141 mEq/L 136-145 Sodium Level [facility]Z (No [facility]) chloride level 114 mEq/L 98-107 Above high normal Chloride Level [facility]Z ([facility]) carbon dioxide level 22 mEq/L 21-32 Carbon Dioxide Level [facility]Z ([facility]) anion gap 5 mEq/L 8-16 Below low normal Anion Gap [facility] ( [facility]) calcium level 8.0 mg/dL 8.5-10.1 Below low normal Calcium Level AT [facility] ([facility]) ID Date Data Source [id number] 05/18/2020 05:51:00 AM EST [facility]) Name Value Range Interpretation Code Description Data Demetrice rce(s) Supporting Document(s) white blood count 7.7 10 4.0-10.0 White Blood Count [facility] ([facility]) red blood count 3.92 10 4.00-5.40 Below low normal Red Blood Coun t [place] ([facility]) hemoglobin 11.6 g/dL 12.0-15.5 Below low normal Hemoglobin [facility] ( [facility]) hematocrit 36.4 % 36.0-47.0 Hematocrit [facility]Z ([facility]) mean corpuscular volume 92.9 fL 80.0-96.0 Mean Corpusc ular Volume [place] ([facility]) red cell distribution width 14.3 % 11.5-14.5 Red Cell Distribution Width [facility] ([facility]) mean corpuscular hemoglobin 29.6 pg 27.0-33.0 Mean Cor puscular Hemoglobin [facility]Z ([facility]) mean corpuscular HGB conc 31.9 g/dL 32.0-36.5 Below low eduardo l Mean Corpuscular HGB Conc [facility] ([facility]) nucleated red blood cell % 0.0 % 0-0 Nucleated Red Blood Cell % [place] ([facility]) platelet count, automated 228 10 150-450 Platelet C ount, Automated [facility] ([facility]) ID Date Data Source [id number] 05/18/2020 05:51:00 AM EST [place] ([facility]) Name Value Range Interpretation Code Description Data Demetrice rce(s) Supporting Document(s) blood urea nitrogen 5 mg/dL 7-18 Below low normal Blood Urea Nitrogen [facility] ([facility]) creatinine for GFR 0.73 mg/dL 0.55-1.30 Creatinine for GF R [facility] ([facility]) glucose, fasting 142 mg/dL 70-100 Above high normal Glucose, Fas ting [facility]Z ([facility]) sodium level 141 mEq/L 136-145 Sodium Level [facility]Z (No [facility]) glomerular filtration rate > 60.0 >60 Glomerula r Filtration Rate [facility]Z ([facility]) potassium serum 3.6 mEq/L 3.5-5.1 Potassium Serum ATH NA ([facility]) carbon dioxide level 22 mEq/L 21-32 Carbon Dioxide Level [facility] ([facility] [facility]) chloride level 114 mEq/L 98-107 Above high normal Chloride Level MAHNAZ ([facility]) calcium level 8.0 mg/dL 8.5-10.1 Below low normal Calcium Level AT [facility]) anion gap 5 mEq/L 8-16 Below low normal Anion Gap MAHNAZ ( [facility]) ID Date Data Source [id number] 05/18/2020 05:51:00 AM EST MAHNAZ ([facility]) Name Value Range Interpretation Code Description Data Demetrice rce(s) Supporting Document(s) white blood count 7.7 10 4.0-10.0 White Blood Count MAHNAZ ([facility]) hemoglobin 11.6 g/dL 12.0-15.5 Below low normal Hemoglobin MAHNAZ ( [facility]) red blood count 3.92 10 4.00-5.40 Below low normal Red Blood Coun t MAHNAZ ([facility]) mean corpuscular volume 92.9 fL 80.0-96.0 Mean Corpusc ular Volume MAHNAZ ([facility]) mean corpuscular hemoglobin 29.6 pg 27.0-33.0 Mean Cor puscular Hemoglobin MAHNAZ ([facility]) hematocrit 36.4 % 36.0-47.0 Hematocrit [place] ([facility]) red cell distribution width 14.3 % 11.5-14.5 Red Cell Distribution Width MAHNAZ ([facility]) mean corpuscular HGB conc 31.9 g/dL 32.0-36.5 Below low eduardo l Mean Corpuscular HGB Conc MAHNAZ ([facility]) platelet count, automated 228 10 150-450 Platelet C ount, Automated MAHNAZ ([facility]) nucleated red blood cell % 0.0 % 0-0 Nucleated Red Blood Cell % [place] ([facility]) ID Date Data Source [id number] 05/18/2020 05:51:00 AM EST [place] ([facility]) Name Value Range Interpretation Code Description Data Demetrice rce(s) Supporting Document(s) glucose, fasting 142 mg/dL 70-100 Above high normal Glucose, Fas ting [place] ([facility]) creatinine for GFR 0.73 mg/dL 0.55-1.30 Creatinine for GF R [place] ([facility]) blood urea nitrogen 5 mg/dL 7-18 Below low normal Blood Urea Nitrogen MAHNAZ ([facility]) sodium level 141 mEq/L 136-145 Sodium Level MAHNAZ ([facility]) glomerular filtration rate > 60.0 >60 Glomerula r Filtration Rate MAHNAZ ([facility]) carbon dioxide level 22 mEq/L 21-32 Carbon Dioxide Level [place] ([facility]) potassium serum 3.6 mEq/L 3.5-5.1 Potassium Serum ATH NA ([facility]) chloride level 114 mEq/L 98-107 Above high normal Chloride Level [place] ([facility]) calcium level 8.0 mg/dL 8.5-10.1 Below low normal Calcium Level AT [facility]) anion gap 5 mEq/L 8-16 Below low normal Anion Gap B[place] ( [facility]) ID Date Data Source [id number] 05/18/2020 05:51:00 AM EST MAHNAZ ([facility]) Name Value Range Interpretation Code Description Data Demetrice rce(s) Supporting Document(s) white blood count 7.7 10 4.0-10.0 White Blood Count [place] ([facility]) red blood count 3.92 10 4.00-5.40 Below low normal Red Blood Coun t MAHNAZ ([facility]) hemoglobin 11.6 g/dL 12.0-15.5 Below low normal Hemoglobin [place] ( [facility]) mean corpuscular volume 92.9 fL 80.0-96.0 Mean Corpusc ular Volume [place] ([facility]) hematocrit 36.4 % 36.0-47.0 Hematocrit [place] ([facility]) red cell distribution width 14.3 % 11.5-14.5 Red Cell Distribution Width [place] ([facility]) mean corpuscular HGB conc 31.9 g/dL 32.0-36.5 Below low eduardo l Mean Corpuscular HGB Conc [place] ([facility]) mean corpuscular hemoglobin 29.6 pg 27.0-33.0 Mean Cor puscular Hemoglobin [place] ([facility]) nucleated red blood cell % 0.0 % 0-0 Nucleated Red Blood Cell % [place] ([facility]) platelet count, automated 228 10 150-450 Platelet C ount, Automated [place] ([facility]) ID Date Data Source [id number] 05/18/2020 05:51:00 AM EST MAHNAZ ([facility]) Name Value Range Interpretation Code Description Data Demetrice rce(s) Supporting Document(s) glucose, fasting 142 mg/dL 70-100 Above high normal Glucose, Fas ting [place] ([facility]) blood urea nitrogen 5 mg/dL 7-18 Below low normal Blood Urea Nitrogen [place] ([facility]) creatinine for GFR 0.73 mg/dL 0.55-1.30 Creatinine for GF R [place] ([facility]) sodium level 141 mEq/L 136-145 Sodium Level MAHNAZ ([facility]) glomerular filtration rate > 60.0 >60 Glomerula r Filtration Rate MAHNAZ ([facility]) potassium serum 3.6 mEq/L 3.5-5.1 Potassium Serum ATHE NA ([facility]) chloride level 114 mEq/L 98-107 Above high normal Chloride Level MAHNAZ ([facility]) anion gap 5 mEq/L 8-16 Below low normal Anion Gap MAHNAZ ( [facility]) carbon dioxide level 22 mEq/L 21-32 Carbon Dioxide Level MAHNAZ ([facility]) calcium level 8.0 mg/dL 8.5-10.1 Below low normal Calcium Level AT [facility]) ID Date Data Source [id number] 05/18/2020 05:51:00 AM EST [facility]) Name Value Range Interpretation Code Description Data Demetrice rce(s) Supporting Document(s) white blood count 7.7 10 4.0-10.0 White Blood Count MAHNAZ ([facility]) red blood count 3.92 10 4.00-5.40 Below low normal Red Blood Coun t [place] ([facility]) hematocrit 36.4 % 36.0-47.0 Hematocrit [place] ([facility]) hemoglobin 11.6 g/dL 12.0-15.5 Below low normal Hemoglobin [place] ( [facility]) mean corpuscular hemoglobin 29.6 pg 27.0-33.0 Mean Cor puscular Hemoglobin MAHNAZ ([facility]) mean corpuscular volume 92.9 fL 80.0-96.0 Mean Corpusc ular Volume MAHNAZ ([facility]) red cell distribution width 14.3 % 11.5-14.5 Red Cell Distribution Width [place] ([facility]) mean corpuscular HGB conc 31.9 g/dL 32.0-36.5 Below low eduardo l Mean Corpuscular HGB Conc [place] ([facility]) platelet count, automated 228 10 150-450 [facility]let C [facility]unt, [facility] nucleated red blood cell % 0.0 % 0-0 Nucleated Red Blood Cell % MAHNAZ ([facility]) ID Date Data Source [id number] 05/17/2020 07:10:00 AM EST MAHNAZ ([facility]) Name Value Range Interpretation Code Description Data Demetrice rce(s) Supporting Document(s) estimated average glucose 100 mg/dL 60-110 Estimated Average Glucose MAHNAZ ([facility]) Hemoglobin A1c/Hemoglobin.total in Blood 5.1 % Hemoglobin a1C MAHNAZ ([facility]) ID Date Data Source [id number] 05/17/2020 07:10:00 AM EST MAHNAZ ([facility]) Name Value Range Interpretation Code Description Data Demetrice rce(s) Supporting Document(s) T uptake 42 % 30-39 Above high normal T Uptake MAHNAZ ([facility]) free thyroxine index 4.3 % 1.3-4.8 Free Thyroxine Index MAHNAZ ([facility]) thyroxine (T4) 10.2 ug/dL 4.5-12.0 Thyroxine (T4) MAHNAZ ([facility]) thyroid stimulating hormone 2.310 uIU/mL 0.358-3.740 Thyroid Stimulating Hormone MAHNAZ ([facility]) ID Date Data Source [id number] 05/17/2020 07:10:00 AM EST MAHNAZ ([facility]) Name Value Range Interpretation Code Description Data Demetrice rce(s) Supporting Document(s) HDL cholesterol 28 mg/dL >40 Below low normal HDL Cholestero l MAHNAZ ([facility]) cholesterol level 109 mg/dL <200 Cholesterol Level MAHNAZ ([facility]) triglycerides level 66 mg/dL <150 Triglycerides Le radha MAHNAZ ([facility]) Cholesterol in LDL [Mass/volume] in Serum or Plasma 68 mg/dL <1 00 LDL Cholesterol MAHNAZ ([facility]) cholesterol risk ratio <5 Cholesterol R isk Ratio MAHNAZ ([facility]) non-HDL-C 81 mg/dL Non-hdl-c MAHNAZ ([facility]) ID Date Data Source [id number] 05/17/2020 07:10:00 AM EST MAHNAZ ([facility]) Name Value Range Interpretation Code Description Data Demetrice rce(s) Supporting Document(s) Hemoglobin A1c/Hemoglobin.total in Blood 5.1 % Hemoglobin a1C MAHNAZ ([facility]) estimated average glucose 100 mg/dL 60-110 Estimated Average Glucose MAHNAZ ([facility]) ID Date Data Source [id number] 05/17/2020 07:10:00 AM EST MAHNAZ ([facility]) Name Value Range Interpretation Code Description Data Demetrice rce(s) Supporting Document(s) T uptake 42 % 30-39 Above high normal T Uptake MAHNAZ ([facility]) free thyroxine index 4.3 % 1.3-4.8 Free Thyroxine Index MAHNAZ ([facility]) thyroxine (T4) 10.2 ug/dL 4.5-12.0 Thyroxine (T4) MAHNAZ ([facility]) thyroid stimulating hormone 2.310 uIU/mL 0.358-3.740 Thyroid Stimulating Hormone [place] ([facility]) ID Date Data Source [id number] 05/17/2020 07:10:00 AM EST MAHNAZ ([facility]) Name Value Range Interpretation Code Description Data Demetrice rce(s) Supporting Document(s) triglycerides level 66 mg/dL <150 Triglycerides Le radha MAHNAZ ([facility]) cholesterol level 109 mg/dL <200 Cholesterol Level MAHNAZ ([facility]) HDL cholesterol 28 mg/dL >40 Below low normal HDL Cholestero l MAHNAZ ([facility]) cholesterol risk ratio <5 Cholesterol R isk Ratio MAHNAZ ([facility]) non-HDL-C 81 mg/dL Non-hdl-c MAHNAZ ([facility]) Cholesterol in LDL [Mass/volume] in Serum or Plasma 68 mg/dL <1 00 LDL Cholesterol MAHNAZ ([facility]) ID Date Data Source [id number] 05/17/2020 07:10:00 AM EST MAHNAZ ([facility]) Name Value Range Interpretation Code Description Data Demetrice rce(s) Supporting Document(s) Hemoglobin A1c/Hemoglobin.total in Blood 5.1 % Hemoglobin a1C MAHNAZ ([facility]) estimated average glucose 100 mg/dL 60-110 Estimated Average Glucose MAHNAZ ([facility]) ID Date Data Source [id number] 05/17/2020 07:10:00 AM EST MAHNAZ ([facility]) Name Value Range Interpretation Code Description Data Demetrice rce(s) Supporting Document(s) thyroxine (T4) 10.2 ug/dL 4.5-12.0 Thyroxine (T4) MAHNAZ ([facility]) T uptake 42 % 30-39 Above high normal T Uptake MAHNAZ ([facility]) free thyroxine index 4.3 % 1.3-4.8 Free Thyroxine Index MAHNAZ ([facility]) thyroid stimulating hormone 2.310 uIU/mL 0.358-3.740 Thyroid Stimulating Hormone MAHNAZ ([facility]) ID Date Data Source [id number] 05/17/2020 07:10:00 AM EST MAHNAZ ([facility]) Name Value Range Interpretation Code Description Data Demetrice rce(s) Supporting Document(s) triglycerides level 66 mg/dL <150 Triglycerides Le radha MAHNAZ ([facility]) cholesterol level 109 mg/dL <200 Cholesterol Level MAHNAZ ([facility]) HDL cholesterol 28 mg/dL >40 Below low normal HDL Cholestero l MAHNAZ ([facility]) Cholesterol in LDL [Mass/volume] in Serum or Plasma 68 mg/dL <1 00 LDL Cholesterol MAHNAZ ([facility]) non-HDL-C 81 mg/dL Non-hdl-c MAHNAZ ([facility]) cholesterol risk ratio <5 Cholesterol R isk Ratio MAHNAZ ([facility]) ID Date Data Source [id number] 05/17/2020 07:10:00 AM EST MAHNAZ ([facility]) Name Value Range Interpretation Code Description Data Demetrice rce(s) Supporting Document(s) estimated average glucose 100 mg/dL 60-110 Estimated Average Glucose MAHNAZ ([facility]) Hemoglobin A1c/Hemoglobin.total in Blood 5.1 % Hemoglobin a1C MAHNAZ ([facility]) ID Date Data Source [id number] 05/17/2020 07:10:00 AM EST MAHNAZ ([facility]) Name Value Range Interpretation Code Description Data Demetrice rce(s) Supporting Document(s) thyroxine (T4) 10.2 ug/dL 4.5-12.0 Thyroxine (T4) MAHNAZ ([facility]) T uptake 42 % 30-39 Above high normal T Uptake MAHNAZ ([facility]) free thyroxine index 4.3 % 1.3-4.8 Free Thyroxine Index MAHNAZ ([facility]) thyroid stimulating hormone 2.310 uIU/mL 0.358-3.740 Thyroid Stimulating Hormone MAHNAZ ([facility]) ID Date Data Source [id number] 05/17/2020 07:10:00 AM EST MAHNAZ ([facility]) Name Value Range Interpretation Code Description Data Demetrice rce(s) Supporting Document(s) HDL cholesterol 28 mg/dL >40 Below low normal HDL Cholestero l MAHNAZ ([facility]) triglycerides level 66 mg/dL <150 Triglycerides Le radha MAHNAZ ([facility]) cholesterol level 109 mg/dL <200 Cholesterol Level MAHNAZ ([facility]) Cholesterol in LDL [Mass/volume] in Serum or Plasma 68 mg/dL <1 00 LDL Cholesterol MAHNAZ ([facility]) non-HDL-C 81 mg/dL Non-hdl-c MAHNAZ ([facility]) cholesterol risk ratio <5 Cholesterol R isk Ratio MAHNAZ ([facility]) ID Date Data Source [id number] 05/17/2020 07:10:00 AM EST MAHNAZ ([facility]) Name Value Range Interpretation Code Description Data Demetrice rce(s) Supporting Document(s) estimated average glucose 100 mg/dL 60-110 Estimated Average Glucose MAHNAZ ([facility]) Hemoglobin A1c/Hemoglobin.total in Blood 5.1 % Hemoglobin a1C [place] ([facility]) ID Date Data Source [id number] 05/17/2020 07:10:00 AM EST MAHNAZ ([facility]) Name Value Range Interpretation Code Description Data Demetrice rce(s) Supporting Document(s) T uptake 42 % 30-39 Above high normal T Uptake MAHNAZ ([facility]) free thyroxine index 4.3 % 1.3-4.8 Free Thyroxine Index [place] ([facility]) thyroxine (T4) 10.2 ug/dL 4.5-12.0 Thyroxine (T4) MAHNAZ ([facility]) thyroid stimulating hormone 2.310 uIU/mL 0.358-3.740 Thyroid Stimulating Hormone [place] ([facility]) ID Date Data Source [id number] 05/17/2020 07:10:00 AM [facility] Name Value Range Interpretation Code Description Data Demetrice rce(s) Supporting Document(s) triglycerides level 66 mg/dL <150 Triglycerides Le radha MAHNAZ ([facility]) cholesterol level 109 mg/dL <200 Cholesterol Level MAHNAZ ([facility]) HDL cholesterol 28 mg/dL >40 Below low normal HDL Cholestero l MAHNAZ ([facility]) non-HDL-C 81 mg/dL Non-hdl-c MAHNAZ ([facility]) Cholesterol in LDL [Mass/volume] in Serum or Plasma 68 mg/dL <1 00 LDL Cholesterol MAHNAZ ([facility]) cholesterol risk ratio <5 Cholesterol R isk Ratio [place] ([facility]) ID Date Data Source [id number] 05/17/2020 07:10:00 AM [facility] Name Value Range Interpretation Code Description Data Demetrice rce(s) Supporting Document(s) Hemoglobin A1c/Hemoglobin.total in Blood 5.1 % Hemoglobin a1C MAHNAZ ([facility]) estimated average glucose 100 mg/dL 60-110 Estimated Average Glucose MAHNAZ ([facility]) ID Date Data Source [id number] 05/17/2020 07:10:00 AM EST MAHNAZ ([facility]) Name Value Range Interpretation Code Description Data Demetrice rce(s) Supporting Document(s) thyroxine (T4) 10.2 ug/dL 4.5-12.0 Thyroxine (T4) MAHNAZ ([facility]) T uptake 42 % 30-39 Above high normal T Uptake MAHNAZ ([facility]) free thyroxine index 4.3 % 1.3-4.8 Free Thyroxine Index MAHNAZ ([facility]) thyroid stimulating hormone 2.310 uIU/mL 0.358-3.740 Thyroid Stimulating Hormone MAHNAZ ([facility]) ID Date Data Source [id number] 05/17/2020 07:10:00 AM EST MAHNAZ ([facility]) Name Value Range Interpretation Code Description Data Demetrice rce(s) Supporting Document(s) triglycerides level 66 mg/dL <150 Triglycerides Le radha MAHNAZ ([facility]) HDL cholesterol 28 mg/dL >40 Below low normal HDL Cholestero l MAHNAZ ([facility]) cholesterol level 109 mg/dL <200 Cholesterol Level MAHNAZ ([facility]) Cholesterol in LDL [Mass/volume] in Serum or Plasma 68 mg/dL <1 00 LDL Cholesterol MAH[place]Z ([facility]) non-HDL-C 81 mg/dL Non-hdl-c MAHNAZ ([facility]) cholesterol risk ratio <5 Cholesterol R isk Ratio MAHNAZ ([facility]) ID Date Data Source [id number] 05/17/2020 07:10:00 AM EST MAHNAZ ([facility]) Name Value Range Interpretation Code Description Data Demetrice rce(s) Supporting Document(s) Hemoglobin A1c/Hemoglobin.total in Blood 5.1 % Hemoglobin a1C MAH[place]Z ([facility]) estimated average glucose 100 mg/dL 60-110 Estimated Average Glucose [place] ([facility]) ID Date Data Source [id number] 05/17/2020 07:10:00 AM EST MAHNAZ ([facility]) Name Value Range Interpretation Code Description Data Demetrice rce(s) Supporting Document(s) free thyroxine index 4.3 % 1.3-4.8 Free Thyroxine Index MAHNAZ ([facility]) T uptake 42 % 30-39 Above high normal T Uptake MAHNAZ ([facility]) thyroxine (T4) 10.2 ug/dL 4.5-12.0 Thyroxine (T4) [place] ([facility]) thyroid stimulating hormone 2.310 uIU/mL 0.358-3.740 Thyroid Stimulating Hormone [place] ([facility]) ID Date Data Source [id number] 05/17/2020 07:10:00 AM EST [place] ([facility]) Name Value Range Interpretation Code Description Data Demetrice rce(s) Supporting Document(s) triglycerides level 66 mg/dL <150 Triglycerides Le radha MAHNAZ ([facility]) cholesterol level 109 mg/dL <200 Cholesterol Level MAHNAZ ([facility]) non-HDL-C 81 mg/dL Non-hdl-c MAH[place]Z ([facility]) Cholesterol in LDL [Mass/volume] in Serum or Plasma 68 mg/dL <1 00 LDL Cholesterol MAHNAZ ([facility]) HDL cholesterol 28 mg/dL >40 Below low normal HDL Cholestero l MAHNAZ ([facility]) cholesterol risk ratio <5 Cholesterol R isk Ratio [place] ([facility]) ID Date Data Source [id number] 05/17/2020 07:10:00 AM EST [facility]) Name Value Range Interpretation Code Description Data Demetrice rce(s) Supporting Document(s) Hemoglobin A1c/Hemoglobin.total in Blood 5.1 % Hemoglobin a1C MAH[place]Z ([facility]) estimated average glucose 100 mg/dL 60-110 Estimated Average Glucose MAH[place]Z ([facility]) ID Date Data Source [id number] 05/17/2020 07:10:00 AM EST MAHNAZ ([facility]) Name Value Range Interpretation Code Description Data Demetrice rce(s) Supporting Document(s) free thyroxine index 4.3 % 1.3-4.8 Free Thyroxine Index MAHNAZ ([facility]) thyroxine (T4) 10.2 ug/dL 4.5-12.0 Thyroxine (T4) MAHNAZ ([facility]) T uptake 42 % 30-39 Above high normal T Uptake MAHNAZ ([facility]) thyroid stimulating hormone 2.310 uIU/mL 0.358-3.740 Thyroid Stimulating Hormone MAHNAZ ([facility]) ID Date Data Source [id number] 05/17/2020 07:10:00 AM EST MAHNAZ ([facility]) Name Value Range Interpretation Code Description Data Demetrice rce(s) Supporting Document(s) triglycerides level 66 mg/dL <150 Triglycerides Le radha MAHNAZ ([facility]) cholesterol level 109 mg/dL <200 Cholesterol Level [place] ([facility]) HDL cholesterol 28 mg/dL >40 Below low normal HDL Cholestero l MAHNAZ ([facility]) non-HDL-C 81 mg/dL Non-hdl-c MAH[facility]Z ([facility]) Cholesterol in LDL [Mass/volume] in Serum or Plasma 68 mg/dL <1 00 LDL Cholesterol MAHNAZ ([facility]) cholesterol risk ratio <5 Cholesterol R isk Ratio [place] ([facility]) ID Date Data Source [id number] 05/17/2020 07:10:00 AM EST [place] ([facility]) Name Value Range Interpretation Code Description Data Demetrice rce(s) Supporting Document(s) Hemoglobin A1c/Hemoglobin.total in Blood 5.1 % Hemoglobin a1C MAHNAZ ([facility]) estimated average glucose 100 mg/dL 60-110 Estimated Average Glucose [facility]Z ([facility]) ID Date Data Source [id number] 05/17/2020 07:10:00 AM EST MAHNAZ ([facility]) Name Value Range Interpretation Code Description Data Demetrice rce(s) Supporting Document(s) T uptake 42 % 30-39 Above high normal T Uptake MAH[facility]Z ([facility]) thyroxine (T4) 10.2 ug/dL 4.5-12.0 Thyroxine (T4) MAHNAZ ([facility]) free thyroxine index 4.3 % 1.3-4.8 Free Thyroxine Index MAH[facility]Z ([facility]) thyroid stimulating hormone 2.310 uIU/mL 0.358-3.740 Thyroid Stimulating Hormone MAHNAZ ([facility]) ID Date Data Source [id number] 05/17/2020 07:10:00 AM EST MAHNAZ ([facility]) Name Value Range Interpretation Code Description Data Demetrice rce(s) Supporting Document(s) triglycerides level 66 mg/dL <150 Triglycerides Le radha MAHNAZ ([facility]) cholesterol level 109 mg/dL <200 Cholesterol Level MAHNAZ ([facility]) HDL cholesterol 28 mg/dL >40 Below low normal HDL Cholestero l MAHNAZ ([facility]) non-HDL-C 81 mg/dL Non-hdl-c MAH[facility]Z ([facility]) Cholesterol in LDL [Mass/volume] in Serum or Plasma 68 mg/dL <1 00 LDL Cholesterol MAHNAZ ([facility]) cholesterol risk ratio <5 Cholesterol R isk Ratio MAHNAZ ([facility]) ID Date Data Source [id number] 05/17/2020 07:10:00 AM EST MAHNAZ ([facility]) Name Value Range Interpretation Code Description Data Demetrice rce(s) Supporting Document(s) Hemoglobin A1c/Hemoglobin.total in Blood 5.1 % Hemoglobin a1C [facility] ([facility]) estimated average glucose 100 mg/dL 60-110 Estimated Average Glucose [facility] ([facility]) ID Date Data Source [id number] 05/17/2020 07:10:00 AM EST [facility] ([facility]) Name Value Range Interpretation Code Description Data Demetrice rce(s) Supporting Document(s) T uptake 42 % 30-39 Above high normal T Uptake [facility] ([facility]) thyroxine (T4) 10.2 ug/dL 4.5-12.0 Thyroxine (T4) [facility] ([facility]) free thyroxine index 4.3 % 1.3-4.8 Free Thyroxine Index [facility] ([facility]) thyroid stimulating hormone 2.310 uIU/mL 0.358-3.740 Thyroid Stimulating Hormone [facility] ([facility]) ID Date Data Source [id number] 05/17/2020 07:10:00 AM EST [facility] ([facility]) Name Value Range Interpretation Code Description Data Demetrice rce(s) Supporting Document(s) cholesterol level 109 mg/dL <200 Cholesterol Level [facility] ([facility]) triglycerides level 66 mg/dL <150 Triglycerides Le radha [facility] ([facility]) non-HDL-C 81 mg/dL Non-hdl-c [facility] ([facility]) Cholesterol in LDL [Mass/volume] in Serum or Plasma 68 mg/dL <1 00 LDL Cholesterol [facility] ([facility]) HDL cholesterol 28 mg/dL >40 Below low normal HDL Cholestero l [facility] ([facility]) cholesterol risk ratio <5 Cholesterol R isk Ratio [facility] ([facility]) ID Date Data Source [id number] 05/17/2020 07:10:00 AM EST [facility] ([facility]) Name Value Range Interpretation Code Description Data Demetrice rce(s) Supporting Document(s) Hemoglobin A1c/Hemoglobin.total in Blood 5.1 % Hemoglobin a1C [facility] ([facility]) estimated average glucose 100 mg/dL 60-110 Estimated Average Glucose [facility] ([facility]) ID Date Data Source [id number] 05/17/2020 07:10:00 AM EST [facility] ([facility]) Name Value Range Interpretation Code Description Data Demetrice rce(s) Supporting Document(s) free thyroxine index 4.3 % 1.3-4.8 Free Thyroxine Index [facility] ([facility]) T uptake 42 % 30-39 Above high normal T Uptake [facility] ([facility]) thyroxine (T4) 10.2 ug/dL 4.5-12.0 Thyroxine (T4) [facility] ([facility]) thyroid stimulating hormone 2.310 uIU/mL 0.358-3.740 Thyroid Stimulating Hormone [facility] ([facility]) ID Date Data Source [id number] 05/17/2020 07:10:00 AM EST [facility] ([facility]) Name Value Range Interpretation Code Description Data Demetrice rce(s) Supporting Document(s) triglycerides level 66 mg/dL <150 Triglycerides Le radha [facility] ([facility]) cholesterol level 109 mg/dL <200 Cholesterol Level [facility] ([facility]) HDL cholesterol 28 mg/dL >40 Below low normal HDL Cholestero l [facility] ([facility]) Cholesterol in LDL [Mass/volume] in Serum or Plasma 68 mg/dL <1 00 LDL Cholesterol [facility] ([facility]) non-HDL-C 81 mg/dL Non-hdl-c [facility] ([facility]) cholesterol risk ratio <5 Cholesterol R isk Ratio [facility] ([facility]) ID Date Data Source [id number] 05/17/2020 07:10:00 AM EST [facility] ([facility]) Name Value Range Interpretation Code Description Data Demetrice rce(s) Supporting Document(s) Hemoglobin A1c/Hemoglobin.total in Blood 5.1 % Hemoglobin a1C [facility] ([facility]) estimated average glucose 100 mg/dL 60-110 Estimated Average Glucose [facility] ([facility]) ID Date Data Source [id number] 05/17/2020 07:10:00 AM EST [place] ([facility]) Name Value Range Interpretation Code Description Data Demetrice rce(s) Supporting Document(s) T uptake 42 % 30-39 Above high normal T Uptake [facility] ([facility]) thyroid stimulating hormone 2.310 uIU/mL 0.358-3.740 Thyroid Stimulating Hormone [facility] ([facility]) free thyroxine index 4.3 % 1.3-4.8 Free Thyroxine Index [facility] ([facility]) thyroxine (T4) 10.2 ug/dL 4.5-12.0 Thyroxine (T4) [facility] ([facility]) ID Date Data Source [id number] 05/17/2020 07:10:00 AM EST [facility] ([facility]) Name Value Range Interpretation Code Description Data Demetrice rce(s) Supporting Document(s) triglycerides level 66 mg/dL <150 Triglycerides Le radha [facility] ([facility]) HDL cholesterol 28 mg/dL >40 Below low normal HDL Cholestero l [facility] ([facility]) cholesterol level 109 mg/dL <200 Cholesterol Level [facility] ([facility]) non-HDL-C 81 mg/dL Non-hdl-c [facility] ([facility]) Cholesterol in LDL [Mass/volume] in Serum or Plasma 68 mg/dL <1 00 LDL Cholesterol [facility] ([facility]) cholesterol risk ratio <5 Cholesterol R isk Ratio [place] ([facility]) ID Date Data Source [id number] 05/17/2020 07:08:00 AM EST [facility] ([facility]) Name Value Range Interpretation Code Description Data Demetrice rce(s) Supporting Document(s) C reactive protein quantitativ 0.30 mg/dL 0.00-0.30 C Reactive Protein Quantitativ [facility] ([facility]) ID Date Data Source [id number] 05/17/2020 07:08:00 AM EST [facility] ([facility]) Name Value Range Interpretation Code Description Data Demetrice rce(s) Supporting Document(s) procalcitonin <0.05 Procalcitonin [facility]) ID Date Data Source [id number] 05/17/2020 07:08:00 AM EST [facility]) Name Value Range Interpretation Code Description Data Demetrice rce(s) Supporting Document(s) CPK creatine phosphokinase 129 U/L 26-192 CPK Creat ine Phosphokinase [facility] ([facility]) mb/CK relative index < or =4 mb/CK Relative Index [facility] ([facility]) CK-mb value mass < 1.0 <3.6 CK-mb Value Mass AT [facility]) troponin I < 0.02 < 0.10 Troponin I [facility]) ID Date Data Source [id number] 05/17/2020 07:08:00 AM EST [facility]) Name Value Range Interpretation Code Description Data Demetrice rce(s) Supporting Document(s) blood urea nitrogen 6 mg/dL 7-18 Below low normal Blood Urea Nitrogen [facility] ([facility]) glucose, fasting 82 mg/dL 70-100 Glucose, Fasting AT [facility]) creatinine for GFR 0.66 mg/dL 0.55-1.30 Creatinine for GF R [facility] ([facility]) sodium level 141 mEq/L 136-145 Sodium Level [facility] ([facility]) chloride level 114 mEq/L 98-107 Above high normal Chloride Level [place] ([facility]) glomerular filtration rate > 60.0 >60 Glomerula r Filtration Rate [place] ([facility]) potassium serum 3.8 mEq/L 3.5-5.1 [facility] carbon dioxide level 23 mEq/L 21-32 Carbon Dioxide Level [facility]) calcium level 7.6 mg/dL 8.5-10.1 Below low normal Calcium Level AT [facility]) AST/SGOT 6 U/L 7-37 Below low normal AST/SGOT [facility] ( [facility]) anion gap 4 mEq/L 8-16 Below low normal Anion Gap [facility] ( [facility]) ALT/SGPT 9 U/L 12-78 Below low normal ALT/SGPT [facility] ( [facility]) total protein 5.4 gm/dL 6.4-8.2 Below low normal Total Protein AT [facility] ([facility]) albumin 3.0 gm/dL 3.2-5.2 Below low normal Albumin [facility] ( [facility]) bilirubin,total 0.2 mg/dL 0.2-1.0 Bilirubin,total ATHE NA ([facility]) alkaline phosphatase 74 U/L 45-117 Alkaline Phosph atase [facility] ([facility]) albumin/globulin ratio 1.2-2.2 Albumin/globu eren Ratio [facility] ([facility]) ID Date Data Source [id number] 05/17/2020 07:08:00 AM EST [place] ([facility]) Name Value Range Interpretation Code Description Data Demetrice rce(s) Supporting Document(s) erythrocyte sedimentation rate 9 mm/HR 0-20 Eryth rocyte Sedimentation Rate [facility] ([facility]) ID Date Data Source [id number] 05/17/2020 07:08:00 AM EST [place] ([facility]) Name Value Range Interpretation Code Description Data Demetrice rce(s) Supporting Document(s) white blood count 8.4 10 4.0-10.0 White Blood Count [facility] ([facility]) red blood count 3.69 10 4.00-5.40 Below low normal Red Blood Coun t [facility] ([facility]) mean corpuscular hemoglobin 28.7 pg 27.0-33.0 Mean Cor puscular Hemoglobin [facility] ([facility]) hemoglobin 10.6 g/dL 12.0-15.5 Below low normal Hemoglobin [facility] ( [facility]) hematocrit 34.3 % 36.0-47.0 Below low normal Hematocrit [facility] ( [facility]) mean corpuscular volume 93.0 fL 80.0-96.0 Mean Corpusc ular Volume [facility] ([facility]) platelet count, automated 205 10 150-450 Platelet C ount, Automated [facility] ([facility]) neutrophils % 65.6 % 36.0-66.0 Neutrophils % [facility] ( [facility]) red cell distribution width 14.2 % 11.5-14.5 Red Cell Distribution Width [facility] ([facility]) mean corpuscular HGB conc 30.9 g/dL 32.0-36.5 Below low eduardo l Mean Corpuscular HGB Conc [facility] ([facility]) mono % 3.7 % 0.0-5.0 [place] % [place] ([facility]) eos % 2.1 % 0.0-3.0 Eos % [place] ([facility]) lymph % 27.7 % 24.0-44.0 Lymph % [place] ([facility]) immature granulocyte % 0.4 % 0-3.0 Immature Gran ulocyte % [place] ([facility]) baso % 0.5 % 0.0-1.0 Baso % [place] ([facility]) nucleated red blood cell % 0.0 % 0-0 Nucleated Red Blood Cell % [facility] ([facility]) lymph # 2.3 10 1.5-5.0 Lymph # [place] ([facility]) neutrophils # 5.5 10 1.5-8.5 Neutrophils # [facility] ( [facility]) baso # 0.0 10 0.0-0.2 Baso # [facility] ([facility]) mono # 0.3 10 0.0-0.8 [place] # [place] ([facility]) eos # 0.2 10 0.0-0.5 Eos # [facility] ([facility]) ID Date Data Source [id number] 05/17/2020 07:08:00 AM EST [place] ([facility]) Name Value Range Interpretation Code Description Data Demetrice rce(s) Supporting Document(s) lactic acid sepsis protocol 0.8 mmol/L 0.4-2.0 Lactic A merlin Sepsis Protocol [facility] ([facility]) ID Date Data Source [id number] 05/17/2020 07:08:00 AM EST [facility] ([facility]) Name Value Range Interpretation Code Description Data Demetrice rce(s) Supporting Document(s) ammonia 43 umol/L <32 Above high normal Ammonia [facility] ([facility]) ID Date Data Source [id number] 05/17/2020 07:08:00 AM EST [facility] ([facility]) Name Value Range Interpretation Code Description Data Demetrice rce(s) Supporting Document(s) C reactive protein quantitativ 0.30 mg/dL 0.00-0.30 C Reactive Protein Quantitativ [facility] ([facility]) ID Date Data Source [id number] 05/17/2020 07:08:00 AM EST [facility] ([facility]) Name Value Range Interpretation Code Description Data Demetrice rce(s) Supporting Document(s) procalcitonin <0.05 Procalcitonin [facility] ( [facility]) ID Date Data Source [id number] 05/17/2020 07:08:00 AM EST [facility] ([facility]) Name Value Range Interpretation Code Description Data Demetrice rce(s) Supporting Document(s) CPK creatine phosphokinase 129 U/L 26-192 CPK Creat ine Phosphokinase [facility] ([facility]) CK-mb value mass < 1.0 <3.6 CK-mb Value Mass AT [facility] ([facility]) mb/CK relative index < or =4 mb/CK Relative Index [facility] ([facility]) troponin I < 0.02 < 0.10 Troponin I [facility] ([facility]) ID Date Data Source [id number] 05/17/2020 07:08:00 AM EST [facility] ([facility]) Name Value Range Interpretation Code Description Data Demetrice rce(s) Supporting Document(s) blood urea nitrogen 6 mg/dL 7-18 Below low normal Blood Urea Nitrogen [facility] ([facility]) glucose, fasting 82 mg/dL 70-100 Glucose, Fasting AT [facility] ([facility]) creatinine for GFR 0.66 mg/dL 0.55-1.30 Creatinine for GF R [facility] ([facility]) glomerular filtration rate > 60.0 >60 Glomerula r Filtration Rate [facility] ([facility]) sodium level 141 mEq/L 136-145 Sodium Level [facility] ([facility]) potassium serum 3.8 mEq/L 3.5-5.1 Potassium Serum [facility] ([facility]) carbon dioxide level 23 mEq/L 21-32 Carbon Dioxide Level [place] ([facility]) chloride level 114 mEq/L 98-107 Above high normal Chloride Level [facility] ([facility]) AST/SGOT 6 U/L 7-37 Below low normal AST/SGOT [facility] ( [facility]) calcium level 7.6 mg/dL 8.5-10.1 Below low normal Calcium Level AT [facility] ([facility]) anion gap 4 mEq/L 8-16 Below low normal Anion Gap [facility] ( [facility]) ALT/SGPT 9 U/L 12-78 Below low normal ALT/SGPT [place] ( [facility]) alkaline phosphatase 74 U/L 45-117 Alkaline Phosph atase [facility] ([facility]) bilirubin,total 0.2 mg/dL 0.2-1.0 Bilirubin,total ATHE ([facility]) total protein 5.4 gm/dL 6.4-8.2 Below low normal Total Protein AT [facility]) albumin/globulin ratio 1.2-2.2 Albumin/globu eren Ratio [facility] ([facility]) albumin 3.0 gm/dL 3.2-5.2 Below low normal Albumin [place] ( [facility]) ID Date Data Source [id number] 05/17/2020 07:08:00 AM EST [facility] ([facility]) Name Value Range Interpretation Code Description Data Demetrice rce(s) Supporting Document(s) erythrocyte sedimentation rate 9 mm/HR 0-20 Eryth rocyte Sedimentation Rate [facility] ([facility]) ID Date Data Source [id number] 05/17/2020 07:08:00 AM EST [facility] ([facility]) Name Value Range Interpretation Code Description Data Demetrice rce(s) Supporting Document(s) white blood count 8.4 10 4.0-10.0 White Blood Count [facility] ([facility]) red blood count 3.69 10 4.00-5.40 Below low normal Red Blood Coun t [place] ([facility]) hematocrit 34.3 % 36.0-47.0 Below low normal Hematocrit [place] ( [facility]) hemoglobin 10.6 g/dL 12.0-15.5 Below low normal Hemoglobin [place] ( [facility]) mean corpuscular volume 93.0 fL 80.0-96.0 Mean Corpusc ular Volume [facility] ([facility]) mean corpuscular HGB conc 30.9 g/dL 32.0-36.5 Below low eduardo l Mean Corpuscular HGB Conc [place] ([facility]) mean corpuscular hemoglobin 28.7 pg 27.0-33.0 Mean Cor puscular Hemoglobin [facility] ([facility]) red cell distribution width 14.2 % 11.5-14.5 Red Cell Distribution Width [facility] ([facility]) lymph % 27.7 % 24.0-44.0 Lymph % [place] ([facility]) platelet count, automated 205 10 150-450 Platelet C ount, Automated [facility] ([facility]) neutrophils % 65.6 % 36.0-66.0 Neutrophils % [facility] ( [facility]) mono % 3.7 % 0.0-5.0 [place] % [facility] ([facility]) eos % 2.1 % 0.0-3.0 Eos % [facility] ([facility]) baso % 0.5 % 0.0-1.0 Baso % [facility] ([facility]) nucleated red blood cell % 0.0 % 0-0 Nucleated Red Blood Cell % [facility] ([facility]) immature granulocyte % 0.4 % 0-3.0 Immature Gran ulocyte % [facility] ([facility]) lymph # 2.3 10 1.5-5.0 Lymph # [facility] ([facility]) eos # 0.2 10 0.0-0.5 Eos # [facility] ([facility]) mono # 0.3 10 0.0-0.8 [place] # [facility] ([facility]) neutrophils # 5.5 10 1.5-8.5 Neutrophils # [facility] ( [facility]) baso # 0.0 10 0.0-0.2 Baso # [facility] ([facility]) ID Date Data Source [id number] 05/17/2020 07:08:00 AM EST [facility] ([facility]) Name Value Range Interpretation Code Description Data Demetrice rce(s) Supporting Document(s) lactic acid sepsis protocol 0.8 mmol/L 0.4-2.0 Lactic A merlin Sepsis Protocol [facility] ([facility]) ID Date Data Source [id number] 05/17/2020 07:08:00 AM EST [facility] ([facility]) Name Value Range Interpretation Code Description Data Demetrice rce(s) Supporting Document(s) ammonia 43 umol/L <32 Above high normal Ammonia [facility] ([facility]) ID Date Data Source [id number] 05/17/2020 07:08:00 AM EST [facility] ([facility]) Name Value Range Interpretation Code Description Data Demetrice rce(s) Supporting Document(s) C reactive protein quantitativ 0.30 mg/dL 0.00-0.30 C Reactive Protein Quantitativ [facility] ([facility]) ID Date Data Source [id number] 05/17/2020 07:08:00 AM EST [place] ([facility]) Name Value Range Interpretation Code Description Data Demetrice rce(s) Supporting Document(s) procalcitonin <0.05 Procalcitonin [facility] ( [facility]) ID Date Data Source [id number] 05/17/2020 07:08:00 AM EST [facility] ([facility]) Name Value Range Interpretation Code Description Data Demetrice rce(s) Supporting Document(s) CPK creatine phosphokinase 129 U/L 26-192 CPK Creat ine Phosphokinase [facility] ([facility]) CK-mb value mass < 1.0 <3.6 CK-mb Value Mass AT [facility]) troponin I < 0.02 < 0.10 Troponin I [facility] ([facility]) mb/CK relative index < or =4 mb/CK Relative Index [facility] ([facility]) ID Date Data Source [id number] 05/17/2020 07:08:00 AM EST [facility]) Name Value Range Interpretation Code Description Data Demetrice rce(s) Supporting Document(s) glucose, fasting 82 mg/dL 70-100 Glucose, Fasting AT [facility]) glomerular filtration rate > 60.0 >60 Glomerula r Filtration Rate [facility] ([facility]) blood urea nitrogen 6 mg/dL 7-18 Below low normal Blood Urea Nitrogen [place] ([facility]) creatinine for GFR 0.66 mg/dL 0.55-1.30 Creatinine for GF R [place] ([facility]) potassium serum 3.8 mEq/L 3.5-5.1 Potassium Serum ATH NA ([facility]) chloride level 114 mEq/L 98-107 Above high normal Chloride Level [place] ([facility]) sodium level 141 mEq/L 136-145 Sodium Level [place] ([facility]) calcium level 7.6 mg/dL 8.5-10.1 Below low normal Calcium Level AT [facility]) carbon dioxide level 23 mEq/L 21-32 Carbon Dioxide Level [facility] ([facility]) AST/SGOT 6 U/L 7-37 Below low normal AST/SGOT [facility] ( [facility]) anion gap 4 mEq/L 8-16 Below low normal Anion Gap [facility] ( [facility]) ALT/SGPT 9 U/L 12-78 Below low normal ALT/SGPT [facility] ( [facility]) bilirubin,total 0.2 mg/dL 0.2-1.0 Bilirubin,total ATHE NA ([facility]) alkaline phosphatase 74 U/L 45-117 Alkaline Phosph atase [facility] ([facility]) total protein 5.4 gm/dL 6.4-8.2 Below low normal Total Protein AT [facility] ([facility]) albumin/globulin ratio 1.2-2.2 Albumin/globu eren Ratio [facility] ([facility]) albumin 3.0 gm/dL 3.2-5.2 Below low normal Albumin [facility] ( [facility]) ID Date Data Source [id number] 05/17/2020 07:08:00 AM EST [place] ([facility]) Name Value Range Interpretation Code Description Data Demetrice rce(s) Supporting Document(s) erythrocyte sedimentation rate 9 mm/HR 0-20 Eryth rocyte Sedimentation Rate [facility] ([facility]) ID Date Data Source [id number] 05/17/2020 07:08:00 AM EST [place] ([facility]) Name Value Range Interpretation Code Description Data Demetrice rce(s) Supporting Document(s) white blood count 8.4 10 4.0-10.0 White Blood Count [facility] ([facility]) red blood count 3.69 10 4.00-5.40 Below low normal Red Blood Coun t [facility] ([facility]) hematocrit 34.3 % 36.0-47.0 Below low normal Hematocrit [facility] ( [facility]) hemoglobin 10.6 g/dL 12.0-15.5 Below low normal Hemoglobin [facility] ( [facility]) mean corpuscular hemoglobin 28.7 pg 27.0-33.0 Mean Cor puscular Hemoglobin [facility] ([facility]) mean corpuscular HGB conc 30.9 g/dL 32.0-36.5 Below low eduardo l Mean Corpuscular HGB Conc [facility] ([facility]) mean corpuscular volume 93.0 fL 80.0-96.0 Mean Corpusc ular Volume [facility] ([facility]) red cell distribution width 14.2 % 11.5-14.5 Red Cell Distribution Width [facility] ([facility]) platelet count, automated 205 10 150-450 Platelet C ount, Automated [facility] ([facility]) neutrophils % 65.6 % 36.0-66.0 Neutrophils % [facility] ( [facility]) lymph % 27.7 % 24.0-44.0 Lymph % [facility] ([facility]) eos % 2.1 % 0.0-3.0 Eos % [facility] ([facility]) mono % 3.7 % 0.0-5.0 [place] % [facility] ([facility]) baso % 0.5 % 0.0-1.0 Baso % [facility] ([facility]) neutrophils # 5.5 10 1.5-8.5 Neutrophils # [facility] ( [facility]) nucleated red blood cell % 0.0 % 0-0 Nucleated Red Blood Cell % [place] ([facility]) immature granulocyte % 0.4 % 0-3.0 Immature Gran ulocyte % [place] ([facility]) mono # 0.3 10 0.0-0.8 [place] # [facility] ([facility]) eos # 0.2 10 0.0-0.5 Eos # [facility] ([facility]) lymph # 2.3 10 1.5-5.0 Lymph # [facility] ([facility]) baso # 0.0 10 0.0-0.2 Baso # [facility] ([facility]) ID Date Data Source [id number] 05/17/2020 07:08:00 AM EST MAH[place]Z ([facility]) Name Value Range Interpretation Code Description Data Demetrice rce(s) Supporting Document(s) lactic acid sepsis protocol 0.8 mmol/L 0.4-2.0 Lactic A merlin Sepsis Protocol [facility]Z ([facility]) ID Date Data Source [id number] 05/17/2020 07:08:00 AM EST MAHNAZ ([facility]) Name Value Range Interpretation Code Description Data Demetrice rce(s) Supporting Document(s) ammonia 43 umol/L <32 Above high normal Ammonia [place] ([facility]) ID Date Data Source [id number] 05/17/2020 07:08:00 AM EST [place] ([facility]) Name Value Range Interpretation Code Description Data Demetrice rce(s) Supporting Document(s) C reactive protein quantitativ 0.30 mg/dL 0.00-0.30 C Reactive Protein Quantitativ [place] ([facility]) ID Date Data Source [id number] 05/17/2020 07:08:00 AM EST [place] ([facility]) Name Value Range Interpretation Code Description Data Demetrice rce(s) Supporting Document(s) procalcitonin <0.05 Procalcitonin [facility]H[place]Z ( [facility]) ID Date Data Source [id number] 05/17/2020 07:08:00 AM EST [place] ([facility]) Name Value Range Interpretation Code Description Data Demetrice rce(s) Supporting Document(s) CPK creatine phosphokinase 129 U/L 26-192 CPK Creat ine Phosphokinase [facility]H[place]Z ([facility]) CK-mb value mass < 1.0 <3.6 CK-mb Value Mass AT [facility] ([facility]) mb/CK relative index < or =4 mb/CK Relative Index MAH[place]Z ([facility]) troponin I < 0.02 < 0.10 Troponin I [place] ([facility]) ID Date Data Source [id number] 05/17/2020 07:08:00 AM EST [place] ([facility]) Name Value Range Interpretation Code Description Data Demetrice rce(s) Supporting Document(s) glucose, fasting 82 mg/dL 70-100 Glucose, Fasting AT [facility]) blood urea nitrogen 6 mg/dL 7-18 Below low normal Blood Urea Nitrogen [facility]Z ([facility]) creatinine for GFR 0.66 mg/dL 0.55-1.30 Creatinine for GF R MAHNAZ ([facility]) glomerular filtration rate > 60.0 >60 Glomerula r Filtration Rate [place] ([facility]) sodium level 141 mEq/L 136-145 Sodium Level [facility]Z ([facility]) chloride level 114 mEq/L 98-107 Above high normal Chloride Level [place] ([facility]) potassium serum 3.8 mEq/L 3.5-5.1 Potassium Serum ATHE ([facility]) carbon dioxide level 23 mEq/L 21-32 Carbon Dioxide Level [place] ([facility]) anion gap 4 mEq/L 8-16 Below low normal Anion Gap MAH[place]Z ( [facility]) ALT/SGPT 9 U/L 12-78 Below low normal ALT/SGPT [facility]Z ( [facility]) AST/SGOT 6 U/L 7-37 Below low normal AST/SGOT [place] ( [facility]) calcium level 7.6 mg/dL 8.5-10.1 Below low normal Calcium Level AT [facility]) alkaline phosphatase 74 U/L 45-117 Alkaline Phosph atase [facility]Z ([facility]) total protein 5.4 gm/dL 6.4-8.2 Below low normal Total Protein AT [facility]) bilirubin,total 0.2 mg/dL 0.2-1.0 Bilirubin,total ATHE ([facility]) albumin/globulin ratio 1.2-2.2 Albumin/globu eren Ratio [facility]H[place]Z ([facility]) albumin 3.0 gm/dL 3.2-5.2 Below low normal Albumin [facility]) ID Date Data Source [id number] 05/17/2020 07:08:00 AM EST MAH[place]Z ([facility]) Name Value Range Interpretation Code Description Data Demetrice rce(s) Supporting Document(s) erythrocyte sedimentation rate 9 mm/HR 0-20 Eryth rocyte Sedimentation Rate [place] ([facility]) ID Date Data Source [id number] 05/17/2020 07:08:00 AM EST MAH[place]Z ([facility]) Name Value Range Interpretation Code Description Data Demetrice rce(s) Supporting Document(s) white blood count 8.4 10 4.0-10.0 White Blood Count [place] ([facility]) red blood count 3.69 10 4.00-5.40 Below low normal Red Blood Coun t [place] ([facility]) hemoglobin 10.6 g/dL 12.0-15.5 Below low normal Hemoglobin [place] ( [facility]) hematocrit 34.3 % 36.0-47.0 Below low normal Hematocrit [place] ( [facility]) mean corpuscular volume 93.0 fL 80.0-96.0 Mean Corpusc ular Volume [place] ([facility]) mean corpuscular hemoglobin 28.7 pg 27.0-33.0 Mean Cor puscular Hemoglobin [place] ([facility]) red cell distribution width 14.2 % 11.5-14.5 Red Cell Distribution Width [place] ([facility]) mean corpuscular HGB conc 30.9 g/dL 32.0-36.5 Below low eduardo l Mean Corpuscular HGB Conc [place] ([facility]) platelet count, automated 205 10 150-450 Platelet C ount, Automated [place] ([facility]) neutrophils % 65.6 % 36.0-66.0 Neutrophils % [place] ( [facility]) lymph % 27.7 % 24.0-44.0 Lymph % [place] ([facility]) mono % 3.7 % 0.0-5.0 [place] % [place] ([facility]) baso % 0.5 % 0.0-1.0 Baso % [facility]Z ([facility]) eos % 2.1 % 0.0-3.0 Eos % [facility]Z ([facility]) nucleated red blood cell % 0.0 % 0-0 Nucleated Red Blood Cell % [facility]Z ([facility]) immature granulocyte % 0.4 % 0-3.0 Immature Gran ulocyte % [facility]Z ([facility]) neutrophils # 5.5 10 1.5-8.5 Neutrophils # [place]Z ( [facility]) lymph # 2.3 10 1.5-5.0 Lymph # [facility]Z ([facility]) eos # 0.2 10 0.0-0.5 Eos # [facility] ([facility]) mono # 0.3 10 0.0-0.8 [place] # [place]Z ([facility]) baso # 0.0 10 0.0-0.2 Baso # [facility] ([facility]) ID Date Data Source [id number] 05/17/2020 07:08:00 AM EST [place] ([facility]) Name Value Range Interpretation Code Description Data Demetrice rce(s) Supporting Document(s) lactic acid sepsis protocol 0.8 mmol/L 0.4-2.0 Lactic A merlin Sepsis Protocol [place] ([facility]) ID Date Data Source [id number] 05/17/2020 07:08:00 AM EST [place]Z ([facility]) Name Value Range Interpretation Code Description Data Demetrice rce(s) Supporting Document(s) ammonia 43 umol/L <32 Above high normal Ammonia [place] ([facility]) ID Date Data Source [id number] 05/17/2020 07:08:00 AM EST [place]Z ([facility]) Name Value Range Interpretation Code Description Data Demetrice rce(s) Supporting Document(s) C reactive protein quantitativ 0.30 mg/dL 0.00-0.30 C Reactive Protein Quantitativ [facility] ([facility]) ID Date Data Source [id number] 05/17/2020 07:08:00 AM EST [facility]) Name Value Range Interpretation Code Description Data Demetrice rce(s) Supporting Document(s) procalcitonin <0.05 Procalcitonin [facility]) ID Date Data Source [id number] 05/17/2020 07:08:00 AM EST [facility]) Name Value Range Interpretation Code Description Data Demetrice rce(s) Supporting Document(s) CPK creatine phosphokinase 129 U/L 26-192 CPK Creat ine Phosphokinase [place] ([facility]) CK-mb value mass < 1.0 <3.6 CK-mb Value Mass AT [facility]) mb/CK relative index < or =4 mb/CK Relative Index [place] ([facility]) troponin I < 0.02 < 0.10 Troponin I [place] ([facility]) ID Date Data Source [id number] 05/17/2020 07:08:00 AM EST [facility]) Name Value Range Interpretation Code Description Data Demetrice rce(s) Supporting Document(s) blood urea nitrogen 6 mg/dL 7-18 Below low normal Blood Urea Nitrogen [facility]Z ([facility]) glucose, fasting 82 mg/dL 70-100 Glucose, Fasting AT [facility]) creatinine for GFR 0.66 mg/dL 0.55-1.30 Creatinine for GF R MAH[place]Z ([facility]) glomerular filtration rate > 60.0 >60 Glomerula r Filtration Rate [facility]H[place]Z ([facility]) potassium serum 3.8 mEq/L 3.5-5.1 Potassium Serum ATH NA ([facility]) sodium level 141 mEq/L 136-145 Sodium Level [place] ([facility]) calcium level 7.6 mg/dL 8.5-10.1 Below low normal Calcium Level AT [facility] ([facility]) anion gap 4 mEq/L 8-16 Below low normal Anion Gap MAH[place]Z ( [facility]) carbon dioxide level 23 mEq/L 21-32 Carbon Dioxide Level MAH[place]Z ([facility]) chloride level 114 mEq/L 98-107 Above high normal Chloride Level [facility]Z ([facility]) ALT/SGPT 9 U/L 12-78 Below low normal ALT/SGPT [place]Z ( [facility]) alkaline phosphatase 74 U/L 45-117 Alkaline Phosph atase [facility]Z ([facility]) bilirubin,total 0.2 mg/dL 0.2-1.0 Bilirubin,total ATHE ([facility]) AST/SGOT 6 U/L 7-37 Below low normal AST/SGOT [place] ( [facility]) total protein 5.4 gm/dL 6.4-8.2 Below low normal Total Protein AT [facility] ([facility]) albumin 3.0 gm/dL 3.2-5.2 Below low normal Albumin [facility]Z ( [facility]) albumin/globulin ratio 1.2-2.2 Albumin/globu eren Ratio [facility]Z ([facility]) ID Date Data Source [id number] 05/17/2020 07:08:00 AM EST [place] ([facility]) Name Value Range Interpretation Code Description Data Demetrice rce(s) Supporting Document(s) erythrocyte sedimentation rate 9 mm/HR 0-20 Eryth rocyte Sedimentation Rate [facility]H[place]Z ([facility]) ID Date Data Source [id number] 05/17/2020 07:08:00 AM EST [place] ([facility]) Name Value Range Interpretation Code Description Data Demetrice rce(s) Supporting Document(s) white blood count 8.4 10 4.0-10.0 White Blood Count [facility] ([facility]) red blood count 3.69 10 4.00-5.40 Below low normal Red Blood Coun t [place]Z ([facility]) hemoglobin 10.6 g/dL 12.0-15.5 Below low normal Hemoglobin [facility]Z ( [facility]) hematocrit 34.3 % 36.0-47.0 Below low normal Hematocrit [facility]Z ( [facility]) mean corpuscular volume 93.0 fL 80.0-96.0 Mean Corpusc ular Volume [facility]Z ([facility]) mean corpuscular hemoglobin 28.7 pg 27.0-33.0 Mean Cor puscular Hemoglobin [facility]Z ([facility]) platelet count, automated 205 10 150-450 Platelet C ount, Automated [place]Z ([facility]) mean corpuscular HGB conc 30.9 g/dL 32.0-36.5 Below low eduardo l Mean Corpuscular HGB Conc [facility]Z ([facility]) red cell distribution width 14.2 % 11.5-14.5 Red Cell Distribution Width [facility] ([facility]) mono % 3.7 % 0.0-5.0 [place] % [place] ([facility]) neutrophils % 65.6 % 36.0-66.0 Neutrophils % [place] ( [facility]) lymph % 27.7 % 24.0-44.0 Lymph % [facility] ([facility]) baso % 0.5 % 0.0-1.0 Baso % [facility] ([facility]) eos % 2.1 % 0.0-3.0 Eos % [place] ([facility]) immature granulocyte % 0.4 % 0-3.0 Immature Gran ulocyte % [facility] ([facility]) nucleated red blood cell % 0.0 % 0-0 Nucleated Red Blood Cell % [facility] ([facility]) lymph # 2.3 10 1.5-5.0 Lymph # [place] ([facility]) neutrophils # 5.5 10 1.5-8.5 Neutrophils # [place]Z ( [facility]) mono # 0.3 10 0.0-0.8 [place] # [place]Z ([facility]) eos # 0.2 10 0.0-0.5 Eos # [facility] ([facility]) baso # 0.0 10 0.0-0.2 Baso # [facility] ([facility]) ID Date Data Source [id number] 05/17/2020 07:08:00 AM EST MAH[place]Z ([facility]) Name Value Range Interpretation Code Description Data Demetrice rce(s) Supporting Document(s) lactic acid sepsis protocol 0.8 mmol/L 0.4-2.0 Lactic A merlin Sepsis Protocol [facility] ([facility]) ID Date Data Source [id number] 05/17/2020 07:08:00 AM EST [place]Z ([facility]) Name Value Range Interpretation Code Description Data Demetrice rce(s) Supporting Document(s) ammonia 43 umol/L <32 Above high normal Ammonia [facility] ([facility]) ID Date Data Source [id number] 05/17/2020 07:08:00 AM EST [place]Z ([facility]) Name Value Range Interpretation Code Description Data Demetrice rce(s) Supporting Document(s) C reactive protein quantitativ 0.30 mg/dL 0.00-0.30 C Reactive Protein Quantitativ [facility] ([facility]) ID Date Data Source [id number] 05/17/2020 07:08:00 AM EST [place]Z ([facility]) Name Value Range Interpretation Code Description Data Demetrice rce(s) Supporting Document(s) procalcitonin <0.05 Procalcitonin [facility] ( [facility]) ID Date Data Source [id number] 05/17/2020 07:08:00 AM EST [place]Z ([facility]) Name Value Range Interpretation Code Description Data Demetrice rce(s) Supporting Document(s) CPK creatine phosphokinase 129 U/L 26-192 CPK Creat ine Phosphokinase [facility]Z ([facility]) mb/CK relative index < or =4 mb/CK Relative Index [facility] ([facility]) CK-mb value mass < 1.0 <3.6 CK-mb Value Mass AT [facility]) troponin I < 0.02 < 0.10 Troponin I [place] ([facility]) ID Date Data Source [id number] 05/17/2020 07:08:00 AM EST [facility]) Name Value Range Interpretation Code Description Data Demetrice rce(s) Supporting Document(s) blood urea nitrogen 6 mg/dL 7-18 Below low normal Blood Urea Nitrogen [facility]Z ([facility]) glucose, fasting 82 mg/dL 70-100 Glucose, Fasting AT [facility] ([facility]) sodium level 141 mEq/L 136-145 Sodium Level [facility]Z ([facility]) potassium serum 3.8 mEq/L 3.5-5.1 Potassium Serum ATHE ([facility]) glomerular filtration rate > 60.0 >60 Glomerula r Filtration Rate [place] ([facility]) creatinine for GFR 0.66 mg/dL 0.55-1.30 Creatinine for GF R [place]Z ([facility]) chloride level 114 mEq/L 98-107 Above high normal Chloride Level [facility]Z ([facility]) carbon dioxide level 23 mEq/L 21-32 Carbon Dioxide Level [place] ([facility]) calcium level 7.6 mg/dL 8.5-10.1 Below low normal Calcium Level AT [facility]) anion gap 4 mEq/L 8-16 Below low normal Anion Gap [place] ( [facility]) AST/SGOT 6 U/L 7-37 Below low normal AST/SGOT [place] ( [facility]) alkaline phosphatase 74 U/L 45-117 Alkaline Phosph atase [facility]H[place]Z ([facility]) ALT/SGPT 9 U/L 12-78 Below low normal ALT/SGPT [place]Z ( [facility]) total protein 5.4 gm/dL 6.4-8.2 Below low normal Total Protein AT [facility]) bilirubin,total 0.2 mg/dL 0.2-1.0 Bilirubin,total ATHE [facility]) albumin/globulin ratio 1.2-2.2 [facility] albumin 3.0 gm/dL 3.2-5.2 Below low normal Albumin [place] ( [facility]) ID Date Data Source [id number] 05/17/2020 07:08:00 AM EST [place] ([facility]) Name Value Range Interpretation Code Description Data Demetrice rce(s) Supporting Document(s) erythrocyte sedimentation rate 9 mm/HR 0-20 Eryth rocyte Sedimentation Rate [place] ([facility]) ID Date Data Source [id number] 05/17/2020 07:08:00 AM EST [place] ([facility]) Name Value Range Interpretation Code Description Data Demetrice rce(s) Supporting Document(s) white blood count 8.4 10 4.0-10.0 White Blood Count [place] ([facility]) red blood count 3.69 10 4.00-5.40 Below low normal Red Blood Coun t [place] ([facility]) hemoglobin 10.6 g/dL 12.0-15.5 Below low normal Hemoglobin [place] ( [facility]) mean corpuscular volume 93.0 fL 80.0-96.0 Mean Corpusc ular Volume [place] ([facility]) mean corpuscular hemoglobin 28.7 pg 27.0-33.0 Mean Cor puscular Hemoglobin [place] ([facility]) hematocrit 34.3 % 36.0-47.0 Below low normal Hematocrit [place] ( [facility]) platelet count, automated 205 10 150-450 Platelet C [facility]unt, [facility]ated [facility] mean corpuscular HGB conc 30.9 g/dL 32.0-36.5 Below low eduardo l Mean Corpuscular HGB Conc [place] ([facility]) neutrophils % 65.6 % 36.0-66.0 Neutrophils % [place] ( [facility]) red cell distribution width 14.2 % 11.5-14.5 Red Cell Distribution Width [place] ([facility]) lymph % 27.7 % 24.0-44.0 Lymph % [place] ([facility]) mono % 3.7 % 0.0-5.0 [place] % [place] ([facility]) eos % 2.1 % 0.0-3.0 Eos % [facility] ([facility]) baso % 0.5 % 0.0-1.0 Baso % [place] ([facility]) immature granulocyte % 0.4 % 0-3.0 Immature Gran ulocyte % [facility] ([facility]) nucleated red blood cell % 0.0 % 0-0 Nucleated Red Blood Cell % [facility] ([facility]) lymph # 2.3 10 1.5-5.0 Lymph # [place] ([facility]) neutrophils # 5.5 10 1.5-8.5 Neutrophils # [place] ( [facility]) mono # 0.3 10 0.0-0.8 [place] # [place]Z ([facility]) baso # 0.0 10 0.0-0.2 Baso # [facility] ([facility]) eos # 0.2 10 0.0-0.5 Eos # [facility] ([facility]) ID Date Data Source [id number] 05/17/2020 07:08:00 AM EST [place]Z ([facility]) Name Value Range Interpretation Code Description Data Demetrice rce(s) Supporting Document(s) lactic acid sepsis protocol 0.8 mmol/L 0.4-2.0 Lactic A merlin Sepsis Protocol [place] ([facility]) ID Date Data Source [id number] 05/17/2020 07:08:00 AM EST [place]Z ([facility]) Name Value Range Interpretation Code Description Data Demetrice rce(s) Supporting Document(s) ammonia 43 umol/L <32 Above high normal Ammonia [place] ([facility]) ID Date Data Source [id number] 05/17/2020 07:08:00 AM EST [place]Z ([facility]) Name Value Range Interpretation Code Description Data Demetrice rce(s) Supporting Document(s) C reactive protein quantitativ 0.30 mg/dL 0.00-0.30 C Reactive Protein Quantitativ [facility]Z ([facility]) ID Date Data Source [id number] 05/17/2020 07:08:00 AM EST [place]Z ([facility]) Name Value Range Interpretation Code Description Data Demetrice rce(s) Supporting Document(s) procalcitonin <0.05 Procalcitonin [facility]Z ( [facility]) ID Date Data Source [id number] 05/17/2020 07:08:00 AM EST [place] ([facility]) Name Value Range Interpretation Code Description Data Demetrice rce(s) Supporting Document(s) CPK creatine phosphokinase 129 U/L 26-192 CPK Creat ine Phosphokinase [facility]Z ([facility]) mb/CK relative index < or =4 mb/CK Relative Index [facility] ([facility]) troponin I < 0.02 < 0.10 Troponin I [facility]Z ([facility]) CK-mb value mass < 1.0 <3.6 CK-mb Value Mass AT [facility]) ID Date Data Source [id number] 05/17/2020 07:08:00 AM EST [place] ([facility]) Name Value Range Interpretation Code Description Data Demetrice rce(s) Supporting Document(s) creatinine for GFR 0.66 mg/dL 0.55-1.30 Creatinine for GF R MAH[place]Z ([facility]) glucose, fasting 82 mg/dL 70-100 Glucose, Fasting AT [facility] ([facility]) blood urea nitrogen 6 mg/dL 7-18 Below low normal Blood Urea Nitrogen [facility]Z ([facility]) glomerular filtration rate > 60.0 >60 Glomerula r Filtration Rate [facility]Z ([facility]) potassium serum 3.8 mEq/L 3.5-5.1 Potassium Serum ATHE ([facility]) carbon dioxide level 23 mEq/L 21-32 Carbon Dioxide Level [facility]Z ([facility]) chloride level 114 mEq/L 98-107 Above high normal Chloride Level [facility]Z ([facility]) sodium level 141 mEq/L 136-145 Sodium Level [facility] ([facility]) anion gap 4 mEq/L 8-16 Below low normal Anion Gap [facility]Z ( [facility]) alkaline phosphatase 74 U/L 45-117 Alkaline Phosph atase [facility]Z ([facility]) AST/SGOT 6 U/L 7-37 Below low normal AST/SGOT [facility] ( [facility]) calcium level 7.6 mg/dL 8.5-10.1 Below low normal Calcium Level AT [facility]) ALT/SGPT 9 U/L 12-78 Below low normal ALT/SGPT [place] ( [facility]) albumin/globulin ratio 1.2-2.2 Albumin/globu eren Ratio [facility] ([facility]) bilirubin,total 0.2 mg/dL 0.2-1.0 [facility] total protein 5.4 gm/dL 6.4-8.2 Below low normal Total Protein AT [facility] ([facility]) albumin 3.0 gm/dL 3.2-5.2 Below low normal Albumin [place] ( [facility]) ID Date Data Source [id number] 05/17/2020 07:08:00 AM EST [facility]) Name Value Range Interpretation Code Description Data Demetrice rce(s) Supporting Document(s) erythrocyte sedimentation rate 9 mm/HR 0-20 Eryth rocyte Sedimentation Rate MAH[facility]Z ([facility]) ID Date Data Source [id number] 05/17/2020 07:08:00 AM EST [facility]) Name Value Range Interpretation Code Description Data Demetrice rce(s) Supporting Document(s) hemoglobin 10.6 g/dL 12.0-15.5 Below low normal Hemoglobin [facility]Z ( [facility]) red blood count 3.69 10 4.00-5.40 Below low normal Red Blood Coun t [place] ([facility]) white blood count 8.4 10 4.0-10.0 White Blood Count [facility] ([facility]) mean corpuscular volume 93.0 fL 80.0-96.0 Mean Corpusc ular Volume [facility]Z ([facility]) mean corpuscular hemoglobin 28.7 pg 27.0-33.0 Mean Cor puscular Hemoglobin MAHNAZ ([facility]) hematocrit 34.3 % 36.0-47.0 Below low normal Hematocrit [facility]Z ( [facility]) neutrophils % 65.6 % 36.0-66.0 Neutrophils % [place] ( [facility]) red cell distribution width 14.2 % 11.5-14.5 Red Cell Distribution Width [facility] ([facility]) mean corpuscular HGB conc 30.9 g/dL 32.0-36.5 Below low eduardo l Mean Corpuscular HGB Conc MA[facility]Z ([facility]) platelet count, automated 205 10 150-450 Platelet C ount, Automated [facility] ([facility]) lymph % 27.7 % 24.0-44.0 Lymph % [facility] ([facility]) eos % 2.1 % 0.0-3.0 Eos % [facility] ([facility]) mono % 3.7 % 0.0-5.0 [place] % [facility]H[place]Z ([facility]) baso % 0.5 % 0.0-1.0 Baso % [facility] ([facility]) nucleated red blood cell % 0.0 % 0-0 Nucleated Red Blood Cell % [facility] ([facility]) neutrophils # 5.5 10 1.5-8.5 Neutrophils # [facility]Z ( [facility]) immature granulocyte % 0.4 % 0-3.0 Immature Gran ulocyte % [facility] ([facility]) mono # 0.3 10 0.0-0.8 [place] # [facility]Z ([facility]) eos # 0.2 10 0.0-0.5 Eos # [facility] ([facility]) lymph # 2.3 10 1.5-5.0 Lymph # [facility]Z ([facility]) baso # 0.0 10 0.0-0.2 Baso # [facility] ([facility]) ID Date Data Source [id number] 05/17/2020 07:08:00 AM EST [facility]Z ([facility]) Name Value Range Interpretation Code Description Data Demetrice rce(s) Supporting Document(s) lactic acid sepsis protocol 0.8 mmol/L 0.4-2.0 Lactic A merlin Sepsis Protocol [facility]Z ([facility]) ID Date Data Source [id number] 05/17/2020 07:08:00 AM EST [facility]Z ([facility]) Name Value Range Interpretation Code Description Data Demetrice rce(s) Supporting Document(s) ammonia 43 umol/L <32 Above high normal Ammonia [place] ([facility]) ID Date Data Source [id number] 05/17/2020 07:08:00 AM EST [facility] ([facility]) Name Value Range Interpretation Code Description Data Demetrice rce(s) Supporting Document(s) C reactive protein quantitativ 0.30 mg/dL 0.00-0.30 C Reactive Protein Quantitativ [facility]Z ([facility]) ID Date Data Source [id number] 05/17/2020 07:08:00 AM EST [place] ([facility]) Name Value Range Interpretation Code Description Data Demetrice rce(s) Supporting Document(s) procalcitonin <0.05 Procalcitonin [facility]Z ( [facility]) ID Date Data Source [id number] 05/17/2020 07:08:00 AM EST [place]Z ([facility]) Name Value Range Interpretation Code Description Data Demetrice rce(s) Supporting Document(s) CPK creatine phosphokinase 129 U/L 26-192 CPK Creat ine Phosphokinase [place] ([facility]) CK-mb value mass < 1.0 <3.6 CK-mb Value Mass AT [facility]) mb/CK relative index < or =4 mb/CK Relative Index [place] ([facility]) troponin I < 0.02 < 0.10 Troponin I [place] ([facility]) ID Date Data Source [id number] 05/17/2020 07:08:00 AM EST [facility]) Name Value Range Interpretation Code Description Data Demetrice rce(s) Supporting Document(s) creatinine for GFR 0.66 mg/dL 0.55-1.30 Creatinine for GF R [place] ([facility]) glucose, fasting 82 mg/dL 70-100 Glucose, Fasting AT [facility]) blood urea nitrogen 6 mg/dL 7-18 Below low normal Blood Urea Nitrogen [place] ([facility]) glomerular filtration rate > 60.0 >60 Glomerula r Filtration Rate [place] ([facility]) chloride level 114 mEq/L 98-107 Above high normal Chloride Level [place] ([facility]) potassium serum 3.8 mEq/L 3.5-5.1 Potassium Serum [facility] ([facility]) sodium level 141 mEq/L 136-145 Sodium Level [place] ([facility]) anion gap 4 mEq/L 8-16 Below low normal Anion Gap [place] ( [facility]) carbon dioxide level 23 mEq/L 21-32 Carbon Dioxide Level [place] ([facility]) calcium level 7.6 mg/dL 8.5-10.1 Below low normal Calcium Level AT [facility]) ALT/SGPT 9 U/L 12-78 Below low normal ALT/SGPT [facility]H[place]Z ( [facility]) AST/SGOT 6 U/L 7-37 Below low normal AST/SGOT [place] ( [facility]) total protein 5.4 gm/dL 6.4-8.2 Below low normal Total Protein AT [facility]) bilirubin,total 0.2 mg/dL 0.2-1.0 Bilirubin,total ATHE [facility]) alkaline phosphatase 74 U/L 45-117 Alkaline Phosph atase [facility]) albumin 3.0 gm/dL 3.2-5.2 Below low normal Albumin [facility]Z ( [facility]) albumin/globulin ratio 1.2-2.2 Albumin/globu eren Ratio [facility]Z ([facility]) ID Date Data Source [id number] 05/17/2020 07:08:00 AM EST [facility]Z ([facility]) Name Value Range Interpretation Code Description Data Demetrice rce(s) Supporting Document(s) erythrocyte sedimentation rate 9 mm/HR 0-20 Eryth rocyte Sedimentation Rate [facility]Z ([facility]) ID Date Data Source [id number] 05/17/2020 07:08:00 AM EST [place] ([facility]) Name Value Range Interpretation Code Description Data Demetrice rce(s) Supporting Document(s) white blood count 8.4 10 4.0-10.0 White Blood Count [place] ([facility]) red blood count 3.69 10 4.00-5.40 Below low normal Red Blood Coun t MAH[facility]Z ([facility]) hematocrit 34.3 % 36.0-47.0 Below low normal Hematocrit [place] ( [facility]) hemoglobin 10.6 g/dL 12.0-15.5 Below low normal Hemoglobin [place] ( [facility]) mean corpuscular volume 93.0 fL 80.0-96.0 Mean Corpusc ular Volume [facility]Z ([facility]) mean corpuscular hemoglobin 28.7 pg 27.0-33.0 Mean Cor puscular Hemoglobin [facility]Z ([facility]) mean corpuscular HGB conc 30.9 g/dL 32.0-36.5 Below low eduardo l Mean Corpuscular HGB Conc [facility] ([facility]) red cell distribution width 14.2 % 11.5-14.5 Red Cell Distribution Width [place] ([facility]) mono % 3.7 % 0.0-5.0 [place] % [facility] ([facility]) neutrophils % 65.6 % 36.0-66.0 Neutrophils % [place] ( [facility]) platelet count, automated 205 10 150-450 Platelet C ount, Automated [facility] ([facility]) lymph % 27.7 % 24.0-44.0 Lymph % [facility] ([facility]) eos % 2.1 % 0.0-3.0 Eos % [facility] ([facility]) baso % 0.5 % 0.0-1.0 Baso % [place] ([facility]) nucleated red blood cell % 0.0 % 0-0 Nucleated Red Blood Cell % [facility]Z ([facility]) immature granulocyte % 0.4 % 0-3.0 Immature Gran ulocyte % [place] ([facility]) mono # 0.3 10 0.0-0.8 [place] # [place] ([facility]) neutrophils # 5.5 10 1.5-8.5 Neutrophils # [place] ( [facility]) eos # 0.2 10 0.0-0.5 Eos # [place] ([facility]) lymph # 2.3 10 1.5-5.0 Lymph # [facility]Z ([facility]) baso # 0.0 10 0.0-0.2 Baso # [facility] ([facility]) ID Date Data Source [id number] 05/17/2020 07:08:00 AM EST [place] ([facility]) Name Value Range Interpretation Code Description Data Demetrice rce(s) Supporting Document(s) lactic acid sepsis protocol 0.8 mmol/L 0.4-2.0 Lactic A merlin Sepsis Protocol [facility]Z ([facility]) ID Date Data Source [id number] 05/17/2020 07:08:00 AM EST [facility] ([facility]) Name Value Range Interpretation Code Description Data Demetrice rce(s) Supporting Document(s) ammonia 43 umol/L <32 Above high normal Ammonia [facility] ([facility]) ID Date Data Source [id number] 05/17/2020 07:08:00 AM EST [facility]Z ([facility]) Name Value Range Interpretation Code Description Data Demetrice rce(s) Supporting Document(s) C reactive protein quantitativ 0.30 mg/dL 0.00-0.30 C Reactive Protein Quantitativ [facility]Z ([facility]) ID Date Data Source [id number] 05/17/2020 07:08:00 AM EST [facility]Z ([facility]) Name Value Range Interpretation Code Description Data Demetrice rce(s) Supporting Document(s) procalcitonin <0.05 Procalcitonin [facility]Z ( [facility]) ID Date Data Source [id number] 05/17/2020 07:08:[facility] Name Value Range Interpretation Code Description Data Demetrice rce(s) Supporting Document(s) CPK creatine phosphokinase 129 U/L 26-192 CPK Creat ine Phosphokinase [facility]Z ([facility]) mb/CK relative index < or =4 mb/CK Relative Index [facility] ([facility]) troponin I < 0.02 < 0.10 Troponin I [place] ([facility]) CK-mb value mass < 1.0 <3.6 CK-mb Value Mass AT [facility]) ID Date Data Source [id number] 05/17/2020 07:08:00 AM EST [facility]H[place]Z ([facility]) Name Value Range Interpretation Code Description Data Demetrice rce(s) Supporting Document(s) creatinine for GFR 0.66 mg/dL 0.55-1.30 Creatinine for GF R [facility]Z ([facility]) blood urea nitrogen 6 mg/dL 7-18 Below low normal Blood Urea Nitrogen [place] ([facility]) glucose, fasting 82 mg/dL 70-100 Glucose, Fasting AT [facility] ([facility]) glomerular filtration rate > 60.0 >60 Glomerula r Filtration Rate [facility]Z ([facility]) sodium level 141 mEq/L 136-145 Sodium Level [facility] ([facility]) potassium serum 3.8 mEq/L 3.5-5.1 Potassium Serum [facility] ([facility]) anion gap 4 mEq/L 8-16 Below low normal Anion Gap [facility]Z ( [facility]) chloride level 114 mEq/L 98-107 Above high normal Chloride Level [facility]Z ([facility]) calcium level 7.6 mg/dL 8.5-10.1 Below low normal Calcium Level AT [facility] ([facility]) carbon dioxide level 23 mEq/L 21-32 Carbon Dioxide Level [facility]Z ([facility]) ALT/SGPT 9 U/L 12-78 Below low normal ALT/SGPT [facility]Z ( [facility]) AST/SGOT 6 U/L 7-37 Below low normal AST/SGOT [facility] ( [facility]) bilirubin,total 0.2 mg/dL 0.2-1.0 Bilirubin,total AT[facility] ([facility]) alkaline phosphatase 74 U/L 45-117 Alkaline Phosph atase [facility]Z ([facility]) albumin/globulin ratio 1.2-2.2 Albumin/globu eren Ratio [facility] ([facility]) total protein 5.4 gm/dL 6.4-8.2 Below low normal Total Protein AT [facility] ([facility]) albumin 3.0 gm/dL 3.2-5.2 Below low normal Albumin [facility]Z ( [facility]) ID Date Data Source [id number] 05/17/2020 07:08:00 AM EST [place] ([facility]) Name Value Range Interpretation Code Description Data Demetrice rce(s) Supporting Document(s) erythrocyte sedimentation rate 9 mm/HR 0-20 Eryth rocyte Sedimentation Rate [facility]Z ([facility]) ID Date Data Source [id number] 05/17/2020 07:08:00 AM EST [facility]) Name Value Range Interpretation Code Description Data Demetrice rce(s) Supporting Document(s) white blood count 8.4 10 4.0-10.0 White Blood Count [facility]Z ([facility]) red blood count 3.69 10 4.00-5.40 Below low normal Red Blood Coun t [facility]Z ([facility]) hemoglobin 10.6 g/dL 12.0-15.5 Below low normal Hemoglobin [facility]Z ( [facility]) hematocrit 34.3 % 36.0-47.0 Below low normal Hematocrit [facility]Z ( [facility]) mean corpuscular hemoglobin 28.7 pg 27.0-33.0 Mean Cor puscular Hemoglobin [facility]Z ([facility]) mean corpuscular HGB conc 30.9 g/dL 32.0-36.5 Below low eduardo l Mean Corpuscular HGB Conc [facility]Z ([facility]) mean corpuscular volume 93.0 fL 80.0-96.0 Mean Corpusc ular Volume [facility]Z ([facility]) neutrophils % 65.6 % 36.0-66.0 Neutrophils % [facility] ( [facility]) platelet count, automated 205 10 150-450 Platelet C ount, Automated [facility] ([facility]) red cell distribution width 14.2 % 11.5-14.5 Red Cell Distribution Width [facility] ([facility]) lymph % 27.7 % 24.0-44.0 Lymph % [facility] ([facility]) mono % 3.7 % 0.0-5.0 [place] % [facility] ([facility]) eos % 2.1 % 0.0-3.0 Eos % [facility] ([facility]) baso % 0.5 % 0.0-1.0 Baso % [place] ([facility]) immature granulocyte % 0.4 % 0-3.0 Immature Gran ulocyte % [facility] ([facility]) neutrophils # 5.5 10 1.5-8.5 Neutrophils # [place] ( [facility]) nucleated red blood cell % 0.0 % 0-0 Nucleated Red Blood Cell % [facility] ([facility]) mono # 0.3 10 0.0-0.8 [place] # [facility] ([facility]) lymph # 2.3 10 1.5-5.0 Lymph # [facility] ([facility]) eos # 0.2 10 0.0-0.5 Eos # [facility] ([facility]) baso # 0.0 10 0.0-0.2 Baso # [facility] ([facility]) ID Date Data Source [id number] 05/17/2020 07:08:00 AM EST [place] ([facility]) Name Value Range Interpretation Code Description Data Demetrice rce(s) Supporting Document(s) lactic acid sepsis protocol 0.8 mmol/L 0.4-2.0 Lactic A merlin Sepsis Protocol [facility] ([facility]) ID Date Data Source [id number] 05/17/2020 07:08:00 AM EST [place] ([facility]) Name Value Range Interpretation Code Description Data Demetrice rce(s) Supporting Document(s) ammonia 43 umol/L <32 Above high normal Ammonia [place] ([facility]) ID Date Data Source [id number] 05/17/2020 07:08:00 AM EST [place] ([facility]) Name Value Range Interpretation Code Description Data Demetrice rce(s) Supporting Document(s) C reactive protein quantitativ 0.30 mg/dL 0.00-0.30 C Reactive Protein Quantitativ [place] ([facility]) ID Date Data Source [id number] 05/17/2020 07:08:00 AM EST [place] ([facility]) Name Value Range Interpretation Code Description Data Demetrice rce(s) Supporting Document(s) procalcitonin <0.05 Procalcitonin [facility] ( [facility]) ID Date Data Source [id number] 05/17/2020 07:08:00 AM EST [place] ([facility]) Name Value Range Interpretation Code Description Data Demetrice rce(s) Supporting Document(s) CK-mb value mass < 1.0 <3.6 CK-mb Value Mass AT [facility] ([facility]) CPK creatine phosphokinase 129 U/L 26-192 CPK Creat ine Phosphokinase [facility] ([facility]) mb/CK relative index < or =4 mb/CK Relative Index [facility] ([facility]) troponin I < 0.02 < 0.10 Troponin I [facility] ([facility]) ID Date Data Source [id number] 05/17/2020 07:08:00 AM EST [place] ([facility]) Name Value Range Interpretation Code Description Data Demetrice rce(s) Supporting Document(s) blood urea nitrogen 6 mg/dL 7-18 Below low normal Blood Urea Nitrogen [facility] ([facility]) glucose, fasting 82 mg/dL 70-100 Glucose, Fasting AT [facility] ([facility]) glomerular filtration rate > 60.0 >60 Glomerula r Filtration Rate [facility]Z ([facility]) sodium level 141 mEq/L 136-145 Sodium Level [facility] ([facility]) creatinine for GFR 0.66 mg/dL 0.55-1.30 Creatinine for GF R [facility] ([facility]) potassium serum 3.8 mEq/L 3.5-5.1 Potassium Serum [facility]) chloride level 114 mEq/L 98-107 Above high normal Chloride Level [facility] ([facility]) carbon dioxide level 23 mEq/L 21-32 Carbon Dioxide Level [facility] ([facility]) anion gap 4 mEq/L 8-16 Below low normal Anion Gap [facility] ( [facility]) calcium level 7.6 mg/dL 8.5-10.1 Below low normal Calcium Level AT [facility]) alkaline phosphatase 74 U/L 45-117 Alkaline Phosph atase [facility] ([facility]) bilirubin,total 0.2 mg/dL 0.2-1.0 Bilirubin,total [facility] ([facility]) ALT/SGPT 9 U/L 12-78 Below low normal ALT/SGPT [facility] ( [facility]) AST/SGOT 6 U/L 7-37 Below low normal AST/SGOT [facility] ( [facility]) albumin/globulin ratio 1.2-2.2 Albumin/globu eren Ratio [facility]Z ([facility]) albumin 3.0 gm/dL 3.2-5.2 Below low normal Albumin [facility] ( [facility]) total protein 5.4 gm/dL 6.4-8.2 Below low normal Total Protein AT [place] ([facility]) ID Date Data Source [id number] 05/17/2020 07:08:00 AM EST [place] ([facility]) Name Value Range Interpretation Code Description Data Demetrice rce(s) Supporting Document(s) erythrocyte sedimentation rate 9 mm/HR 0-20 Eryth rocyte Sedimentation Rate [place] ([facility]) ID Date Data Source [id number] 05/17/2020 07:08:00 AM EST [place] ([facility]) Name Value Range Interpretation Code Description Data Demetrice rce(s) Supporting Document(s) hemoglobin 10.6 g/dL 12.0-15.5 Below low normal Hemoglobin [facility]Z ( [facility]) red blood count 3.69 10 4.00-5.40 Below low normal Red Blood Coun t [place] ([facility]) white blood count 8.4 10 4.0-10.0 White Blood Count [place] ([facility]) mean corpuscular volume 93.0 fL 80.0-96.0 Mean Corpusc ular Volume [facility] ([facility]) mean corpuscular hemoglobin 28.7 pg 27.0-33.0 Mean Cor puscular Hemoglobin [facility] ([facility]) hematocrit 34.3 % 36.0-47.0 Below low normal Hematocrit [facility] ( [facility]) red cell distribution width 14.2 % 11.5-14.5 Red Cell Distribution Width [facility] ([facility]) mean corpuscular HGB conc 30.9 g/dL 32.0-36.5 Below low eduardo l Mean Corpuscular HGB Conc [facility] ([facility]) platelet count, automated 205 10 150-450 Platelet C ount, Automated [place] ([facility]) lymph % 27.7 % 24.0-44.0 Lymph % [facility] ([facility]) mono % 3.7 % 0.0-5.0 [place] % [facility] ([facility]) neutrophils % 65.6 % 36.0-66.0 Neutrophils % [facility] ( [facility]) eos % 2.1 % 0.0-3.0 Eos % [facility] ([facility]) baso % 0.5 % 0.0-1.0 Baso % [facility] ([facility]) nucleated red blood cell % 0.0 % 0-0 Nucleated Red Blood Cell % [facility] ([facility]) immature granulocyte % 0.4 % 0-3.0 Immature Gran ulocyte % [facility] ([facility]) lymph # 2.3 10 1.5-5.0 Lymph # [place] ([facility]) mono # 0.3 10 0.0-0.8 [place] # [place] ([facility]) neutrophils # 5.5 10 1.5-8.5 Neutrophils # [place] ( [facility]) eos # 0.2 10 0.0-0.5 Eos # [place] ([facility]) baso # 0.0 10 0.0-0.2 Baso # [facility] ([facility]) ID Date Data Source [id number] 05/17/2020 07:08:00 AM EST [place] ([facility]) Name Value Range Interpretation Code Description Data Demetrice rce(s) Supporting Document(s) lactic acid sepsis protocol 0.8 mmol/L 0.4-2.0 Lactic A merlin Sepsis Protocol [place] ([facility]) ID Date Data Source [id number] 05/17/2020 07:08:00 AM EST [place] ([facility]) Name Value Range Interpretation Code Description Data Demetrice rce(s) Supporting Document(s) ammonia 43 umol/L <32 Above high normal Ammonia [place] ([facility]) ID Date Data Source [id number] 05/17/2020 07:08:00 AM EST [place] ([facility]) Name Value Range Interpretation Code Description Data Demetrice rce(s) Supporting Document(s) C reactive protein quantitativ 0.30 mg/dL 0.00-0.30 C Reactive Protein Quantitativ [facility] ([facility]) ID Date Data Source [id number] 05/17/2020 07:08:00 AM EST [place] ([facility]) Name Value Range Interpretation Code Description Data Demetrice rce(s) Supporting Document(s) procalcitonin <0.05 Procalcitonin [facility] ( [facility]) ID Date Data Source [id number] 05/17/2020 07:08:00 AM EST [place] ([facility]) Name Value Range Interpretation Code Description Data Demetrice rce(s) Supporting Document(s) CK-mb value mass < 1.0 <3.6 CK-mb Value Mass AT [facility]) CPK creatine phosphokinase 129 U/L 26-192 CPK Creat ine Phosphokinase [place] ([facility]) mb/CK relative index < or =4 mb/CK Relative Index [facility] ([facility]) troponin I < 0.02 < 0.10 Troponin I [facility] ([facility]) ID Date Data Source [id number] 05/17/2020 07:08:00 AM EST [place] ([facility]) Name Value Range Interpretation Code Description Data Demetrice rce(s) Supporting Document(s) blood urea nitrogen 6 mg/dL 7-18 Below low normal Blood Urea Nitrogen [facility] ([facility]) creatinine for GFR 0.66 mg/dL 0.55-1.30 Creatinine for GF R [facility] ([facility]) glucose, fasting 82 mg/dL 70-100 Glucose, Fasting AT [facility] ([facility]) glomerular filtration rate > 60.0 >60 Glomerula r Filtration Rate [facility] ([facility]) sodium level 141 mEq/L 136-145 Sodium Level [facility] ([facility]) potassium serum 3.8 mEq/L 3.5-5.1 Potassium Serum [facility] ([facility]) chloride level 114 mEq/L 98-107 Above high normal Chloride Level [facility] ([facility]) carbon dioxide level 23 mEq/L 21-32 Carbon Dioxide Level [facility] ([facility]) anion gap 4 mEq/L 8-16 Below low normal Anion Gap [facility] ( [facility]) AST/SGOT 6 U/L 7-37 Below low normal AST/SGOT [facility] ( [facility]) calcium level 7.6 mg/dL 8.5-10.1 Below low normal Calcium Level AT [facility]) ALT/SGPT 9 U/L 12-78 Below low normal ALT/SGPT [place] ( [facility]) bilirubin,total 0.2 mg/dL 0.2-1.0 Bilirubin,total [facility] ([facility]) alkaline phosphatase 74 U/L 45-117 Alkaline Phosph atase [place] ([facility]) albumin 3.0 gm/dL 3.2-5.2 Below low normal Albumin [place] ( [facility]) total protein 5.4 gm/dL 6.4-8.2 Below low normal Total Protein AT [facility] ([facility]) albumin/globulin ratio 1.2-2.2 Albumin/globu eren Ratio [place] ([facility]) ID Date Data Source [id number] 05/17/2020 07:08:00 AM EST [facility]) Name Value Range Interpretation Code Description Data Demetrice rce(s) Supporting Document(s) erythrocyte sedimentation rate 9 mm/HR 0-20 Eryth rocyte Sedimentation Rate [facility] ([facility]) ID Date Data Source [id number] 05/17/2020 07:08:00 AM EST [facility]) Name Value Range Interpretation Code Description Data Demetrice rce(s) Supporting Document(s) red blood count 3.69 10 4.00-5.40 Below low normal Red Blood Coun t [facility] ([facility]) white blood count 8.4 10 4.0-10.0 White Blood Count [place] ([facility]) hemoglobin 10.6 g/dL 12.0-15.5 Below low normal Hemoglobin [place] ( [facility]) mean corpuscular volume 93.0 fL 80.0-96.0 Mean Corpusc ular Volume [facility] ([facility]) hematocrit 34.3 % 36.0-47.0 Below low normal Hematocrit [place] ( [facility]) mean corpuscular hemoglobin 28.7 pg 27.0-33.0 Mean Cor puscular Hemoglobin [facility] ([facility]) mean corpuscular HGB conc 30.9 g/dL 32.0-36.5 Below low eduardo l Mean Corpuscular HGB Conc [facility] ([facility]) platelet count, automated 205 10 150-450 Platelet C ount, Automated [place] ([facility]) neutrophils % 65.6 % 36.0-66.0 Neutrophils % [place] ( [facility]) red cell distribution width 14.2 % 11.5-14.5 Red Cell Distribution Width [place] ([facility]) mono % 3.7 % 0.0-5.0 [place] % [place] ([facility]) lymph % 27.7 % 24.0-44.0 Lymph % [facility] ([facility]) baso % 0.5 % 0.0-1.0 Baso % [place] ([facility]) eos % 2.1 % 0.0-3.0 Eos % [place] ([facility]) neutrophils # 5.5 10 1.5-8.5 Neutrophils # [place] ( [facility]) nucleated red blood cell % 0.0 % 0-0 Nucleated Red Blood Cell % [place] ([facility]) immature granulocyte % 0.4 % 0-3.0 Immature Gran ulocyte % [facility] ([facility]) lymph # 2.3 10 1.5-5.0 Lymph # [place] ([facility]) eos # 0.2 10 0.0-0.5 Eos # [place] ([facility]) mono # 0.3 10 0.0-0.8 [place] # [place] ([facility]) baso # 0.0 10 0.0-0.2 Baso # [facility] ([facility]) ID Date Data Source [id number] 05/17/2020 07:08:00 AM EST [place] ([facility]) Name Value Range Interpretation Code Description Data Demetrice rce(s) Supporting Document(s) lactic acid sepsis protocol 0.8 mmol/L 0.4-2.0 Lactic A merlin Sepsis Protocol [facility] ([facility]) ID Date Data Source [id number] 05/17/2020 07:08:00 AM EST [place] ([facility]) Name Value Range Interpretation Code Description Data Demetrice rce(s) Supporting Document(s) ammonia 43 umol/L <32 Above high normal Ammonia [facility] ([facility]) ID Date Data Source [id number] 05/17/2020 07:08:00 AM EST [place] ([facility]) Name Value Range Interpretation Code Description Data Demetrice rce(s) Supporting Document(s) C reactive protein quantitativ 0.30 mg/dL 0.00-0.30 C Reactive Protein Quantitativ [facility] ([facility]) ID Date Data Source [id number] 05/17/2020 07:08:00 AM EST [place] ([facility]) Name Value Range Interpretation Code Description Data Demetrice rce(s) Supporting Document(s) procalcitonin <0.05 Procalcitonin [place] ( [facility]) ID Date Data Source [id number] 05/17/2020 07:08:00 AM EST [place] ([facility]) Name Value Range Interpretation Code Description Data Demetrice rce(s) Supporting Document(s) CK-mb value mass < 1.0 <3.6 CK-mb Value Mass AT [facility] ([facility]) troponin I < 0.02 < 0.10 Troponin I [place] ([facility]) mb/CK relative index < or =4 mb/CK Relative Index [place] ([facility]) CPK creatine phosphokinase 129 U/L 26-192 CPK Creat ine Phosphokinase [place] ([facility]) ID Date Data Source [id number] 05/17/2020 07:08:00 AM EST [place] ([facility]) Name Value Range Interpretation Code Description Data Demetrice rce(s) Supporting Document(s) glomerular filtration rate > 60.0 >60 Glomerula r Filtration Rate [place] ([facility]) glucose, fasting 82 mg/dL 70-100 Glucose, Fasting AT [facility] ([facility]) blood urea nitrogen 6 mg/dL 7-18 Below low normal Blood Urea Nitrogen [place] ([facility]) creatinine for GFR 0.66 mg/dL 0.55-1.30 Creatinine for GF R [place] ([facility]) carbon dioxide level 23 mEq/L 21-32 Carbon Dioxide Level [place] ([facility]) sodium level 141 mEq/L 136-145 Sodium Level [place] ([facility]) potassium serum 3.8 mEq/L 3.5-5.1 Potassium Serum [facility] ([facility]) anion gap 4 mEq/L 8-16 Below low normal Anion Gap [place] ( [facility]) chloride level 114 mEq/L 98-107 Above high normal Chloride Level [place] ([facility]) alkaline phosphatase 74 U/L 45-117 Alkaline Phosph atase [place] ([facility]) AST/SGOT 6 U/L 7-37 Below low normal AST/SGOT [place] ( [facility]) ALT/SGPT 9 U/L 12-78 Below low normal ALT/SGPT [place] ( [facility]) calcium level 7.6 mg/dL 8.5-10.1 Below low normal Calcium Level AT [facility]) bilirubin,total 0.2 mg/dL 0.2-1.0 Bilirubin,total ATHE NA ([facility]) albumin 3.0 gm/dL 3.2-5.2 Below low normal Albumin [place] ( [facility]) albumin/globulin ratio 1.2-2.2 Albumin/globu eren Ratio [facility] ([facility]) total protein 5.4 gm/dL 6.4-8.2 Below low normal Total Protein AT [place] ([facility]) ID Date Data Source [id number] 05/17/2020 07:08:00 AM EST [place] ([facility]) Name Value Range Interpretation Code Description Data Demetrice rce(s) Supporting Document(s) erythrocyte sedimentation rate 9 mm/HR 0-20 Eryth rocyte Sedimentation Rate [facility] ([facility]) ID Date Data Source [id number] 05/17/2020 07:08:00 AM EST [place] ([facility]) Name Value Range Interpretation Code Description Data Demetrice rce(s) Supporting Document(s) red blood count 3.69 10 4.00-5.40 Below low normal Red Blood Coun t [place] ([facility]) white blood count 8.4 10 4.0-10.0 White Blood Count [place] ([facility]) mean corpuscular volume 93.0 fL 80.0-96.0 Mean Corpusc ular Volume [facility] ([facility]) hemoglobin 10.6 g/dL 12.0-15.5 Below low normal Hemoglobin [place] ( [facility]) hematocrit 34.3 % 36.0-47.0 Below low normal Hematocrit [place] ( [facility]) mean corpuscular hemoglobin 28.7 pg 27.0-33.0 Mean Cor puscular Hemoglobin [facility] ([facility]) red cell distribution width 14.2 % 11.5-14.5 Red Cell Distribution Width [facility] ([facility]) platelet count, automated 205 10 150-450 Platelet C ount, Automated [place] ([facility]) mean corpuscular HGB conc 30.9 g/dL 32.0-36.5 Below low eduardo l Mean Corpuscular HGB Conc [facility] ([facility]) lymph % 27.7 % 24.0-44.0 Lymph % [facility] ([facility]) eos % 2.1 % 0.0-3.0 Eos % [place] ([facility]) neutrophils % 65.6 % 36.0-66.0 Neutrophils % [place] ( [facility]) mono % 3.7 % 0.0-5.0 [place] % [place] ([facility]) immature granulocyte % 0.4 % 0-3.0 Immature Gran ulocyte % [facility] ([facility]) nucleated red blood cell % 0.0 % 0-0 Nucleated Red Blood Cell % [facility] ([facility]) neutrophils # 5.5 10 1.5-8.5 Neutrophils # [place] ( [facility]) baso % 0.5 % 0.0-1.0 Baso % [place] ([facility]) baso # 0.0 10 0.0-0.2 Baso # [place] ([facility]) mono # 0.3 10 0.0-0.8 [place] # [place] ([facility]) lymph # 2.3 10 1.5-5.0 Lymph # [facility] ([facility]) eos # 0.2 10 0.0-0.5 Eos # [facility] ([facility]) ID Date Data Source [id number] 05/17/2020 07:08:00 AM EST [place] ([facility]) Name Value Range Interpretation Code Description Data Demetrice rce(s) Supporting Document(s) lactic acid sepsis protocol 0.8 mmol/L 0.4-2.0 Lactic A merlin Sepsis Protocol [place] ([facility]) ID Date Data Source [id number] 05/17/2020 07:08:00 AM EST [place] ([facility]) Name Value Range Interpretation Code Description Data Demetrice rce(s) Supporting Document(s) ammonia 43 umol/L <32 Above high normal Ammonia [facility] ([facility]) ID Date Data Source [id number] 05/17/2020 05:50:00 AM EST [place] ([facility]) Name Value Range Interpretation Code Description Data Demetrice rce(s) Supporting Document(s) ABG partial pressure CO2 38.2 mmHg 35.0-45.0 ABG Partial Pressure CO2 [facility] ([facility]) ABG pH (arterial) 7.354 units 7.350-7.450 ABG pH (Arterial ) [facility] ([facility]) ABG partial pressure O2 82.7 mmHg 75.0-100.0 ABG Partial Pressure O2 [place] ([facility]) ABG total CO2 22.0 mEq/L 22.0-29.0 ABG Total CO2 [place] ( [facility]) ABG HCO3 20.8 mEq/L 22.0-26.0 Below low normal Abg Hco3 [place] ( [facility]) ABG standard HCO3 20.9 mEq/L 22.0-26.0 Below low normal ABG Standard HCO3 [facility] ([facility]) ABG base excess -2.0-2.0 Below low normal ABG Base Exces s [place] ([facility]) ABG O2 saturation 96.2 % 95.0-99.0 ABG O2 Saturation [place] ([facility]) ID Date Data Source [id number] 05/17/2020 05:50:00 AM EST [place] ([facility]) Name Value Range Interpretation Code Description Data Demetrice rce(s) Supporting Document(s) ABG pH (arterial) 7.354 units 7.350-7.450 ABG pH (Arterial ) [facility] ([facility]) ABG partial pressure CO2 38.2 mmHg 35.0-45.0 ABG Partial Pressure CO2 [place] ([facility]) ABG total CO2 22.0 mEq/L 22.0-29.0 ABG Total CO2 [place] ( [facility]) ABG partial pressure O2 82.7 mmHg 75.0-100.0 ABG Partial Pressure O2 [place] ([facility]) ABG base excess -2.0-2.0 Below low normal ABG Base Exces s [place] ([facility]) ABG standard HCO3 20.9 mEq/L 22.0-26.0 Below low normal ABG Standard HCO3 [facility] ([facility]) ABG HCO3 20.8 mEq/L 22.0-26.0 Below low normal Abg Hco3 [place] ( [facility]) ABG O2 saturation 96.2 % 95.0-99.0 ABG O2 Saturation [place] ([facility]) ID Date Data Source [id number] 05/17/2020 05:50:00 AM EST [facility]) Name Value Range Interpretation Code Description Data Demetrice rce(s) Supporting Document(s) ABG partial pressure CO2 38.2 mmHg 35.0-45.0 ABG Partial Pressure CO2 [place] ([facility]) ABG pH (arterial) 7.354 units 7.350-7.450 ABG pH (Arterial ) [place] ([facility]) ABG partial pressure O2 82.7 mmHg 75.0-100.0 ABG Partial Pressure O2 [place] ([facility]) ABG total CO2 22.0 mEq/L 22.0-29.0 ABG Total CO2 [place] ( [facility]) ABG standard HCO3 20.9 mEq/L 22.0-26.0 Below low normal ABG Standard HCO3 [facility] ([facility]) ABG base excess -2.0-2.0 Below low normal ABG Base Exces s [place] ([facility]) ABG HCO3 20.8 mEq/L 22.0-26.0 Below low normal Abg Hco3 [place] ( [facility]) ABG O2 saturation 96.2 % 95.0-99.0 ABG O2 Saturation [facility] ([facility]) ID Date Data Source [id number] 05/17/2020 05:50:00 AM [facility] Name Value Range Interpretation Code Description Data Demetrice rce(s) Supporting Document(s) ABG pH (arterial) 7.354 units 7.350-7.450 ABG pH (Arterial ) [facility] ([facility]) ABG total CO2 22.0 mEq/L 22.0-29.0 ABG Total CO2 [place] ( [facility]) ABG partial pressure O2 82.7 mmHg 75.0-100.0 ABG Partial Pressure O2 [place] ([facility]) ABG partial pressure CO2 38.2 mmHg 35.0-45.0 ABG Partial Pressure CO2 [place] ([facility]) ABG HCO3 20.8 mEq/L 22.0-26.0 Below low normal Abg Hco3 [place] ( [facility]) ABG base excess -2.0-2.0 Below low normal ABG Base Exces s [place] ([facility]) ABG O2 saturation 96.2 % 95.0-99.0 ABG O2 Saturation [place] ([facility]) ABG standard HCO3 20.9 mEq/L 22.0-26.0 Below low normal ABG Standard HCO3 [place] ([facility]) ID Date Data Source [id number] 05/17/2020 05:50:00 AM EST [facility]) Name Value Range Interpretation Code Description Data Demetrice rce(s) Supporting Document(s) ABG pH (arterial) 7.354 units 7.350-7.450 ABG pH (Arterial ) [place] ([facility]) ABG total CO2 22.0 mEq/L 22.0-29.0 ABG Total CO2 [place] ( [facility]) ABG partial pressure O2 82.7 mmHg 75.0-100.0 ABG Partial Pressure O2 [place] ([facility]) ABG partial pressure CO2 38.2 mmHg 35.0-45.0 ABG Partial Pressure CO2 [place] ([facility]) ABG HCO3 20.8 mEq/L 22.0-26.0 Below low normal Abg Hco3 [place] ( [facility]) ABG base excess -2.0-2.0 Below low normal ABG Base Exces s [place] ([facility]) ABG standard HCO3 20.9 mEq/L 22.0-26.0 Below low normal ABG Standard HCO3 [place] ([facility]) ABG O2 saturation 96.2 % 95.0-99.0 ABG O2 Saturation [place] ([facility]) ID Date Data Source [id number] 05/17/2020 05:50:00 AM EST [place] ([facility]) Name Value Range Interpretation Code Description Data Demetrice rce(s) Supporting Document(s) ABG pH (arterial) 7.354 units 7.350-7.450 ABG pH (Arterial ) [facility] ([facility]) ABG partial pressure CO2 38.2 mmHg 35.0-45.0 ABG Partial Pressure CO2 [place] ([facility]) ABG total CO2 22.0 mEq/L 22.0-29.0 ABG Total CO2 [place] ( [facility]) ABG partial pressure O2 82.7 mmHg 75.0-100.0 ABG Partial Pressure O2 [place] ([facility]) ABG standard HCO3 20.9 mEq/L 22.0-26.0 Below low normal ABG Standard HCO3 [facility] ([facility]) ABG HCO3 20.8 mEq/L 22.0-26.0 Below low normal Abg Hco3 [place] ( [facility]) ABG base excess -2.0-2.0 Below low normal ABG Base Exces s [place] ([facility]) ABG O2 saturation 96.2 % 95.0-99.0 ABG O2 Saturation [facility] ([facility]) ID Date Data Source [id number] 05/17/2020 05:50:00 AM EST [place] ([facility]) Name Value Range Interpretation Code Description Data Demetrice rce(s) Supporting Document(s) ABG pH (arterial) 7.354 units 7.350-7.450 ABG pH (Arterial ) [facility] ([facility]) ABG partial pressure CO2 38.2 mmHg 35.0-45.0 ABG Partial Pressure CO2 [place] ([facility]) ABG HCO3 20.8 mEq/L 22.0-26.0 Below low normal Abg Hco3 [place] ( [facility]) ABG partial pressure O2 82.7 mmHg 75.0-100.0 ABG Partial Pressure O2 [place] ([facility]) ABG total CO2 22.0 mEq/L 22.0-29.0 ABG Total CO2 [place] ( [facility]) ABG base excess -2.0-2.0 Below low normal ABG Base Exces s [place] ([facility]) ABG O2 saturation 96.2 % 95.0-99.0 ABG O2 Saturation [place] ([facility]) ABG standard HCO3 20.9 mEq/L 22.0-26.0 Below low normal ABG Standard HCO3 [facility] ([facility]) ID Date Data Source [id number] 05/17/2020 05:50:00 AM EST [place] ([facility]) Name Value Range Interpretation Code Description Data Demetrice rce(s) Supporting Document(s) ABG partial pressure CO2 38.2 mmHg 35.0-45.0 ABG Partial Pressure CO2 [place] ([facility]) ABG pH (arterial) 7.354 units 7.350-7.450 ABG pH (Arterial ) [facility] ([facility]) ABG partial pressure O2 82.7 mmHg 75.0-100.0 ABG Partial Pressure O2 [place] ([facility]) ABG total CO2 22.0 mEq/L 22.0-29.0 ABG Total CO2 [place] ( [facility]) ABG HCO3 20.8 mEq/L 22.0-26.0 Below low normal Abg Hco3 [place] ( [facility]) ABG base excess -2.0-2.0 Below low normal ABG Base Exces s [place] ([facility]) ABG standard HCO3 20.9 mEq/L 22.0-26.0 Below low normal ABG Standard HCO3 [facility] ([facility]) ABG O2 saturation 96.2 % 95.0-99.0 ABG O2 Saturation [facility] ([facility]) ID Date Data Source [id number] 05/17/2020 05:50:00 AM EST [place] ([facility]) Name Value Range Interpretation Code Description Data Demetrice rce(s) Supporting Document(s) ABG pH (arterial) 7.354 units 7.350-7.450 ABG pH (Arterial ) [facility] ([facility]) ABG partial pressure CO2 38.2 mmHg 35.0-45.0 ABG Partial Pressure CO2 [place] ([facility]) ABG total CO2 22.0 mEq/L 22.0-29.0 ABG Total CO2 [place] ( [facility]) ABG partial pressure O2 82.7 mmHg 75.0-100.0 ABG Partial Pressure O2 [place] ([facility]) ABG base excess -2.0-2.0 Below low normal ABG Base Exces s [facility] ([facility]) ABG standard HCO3 20.9 mEq/L 22.0-26.0 Below low normal ABG Standard HCO3 [facility] ([facility]) ABG HCO3 20.8 mEq/L 22.0-26.0 Below low normal Abg Hco3 [place] ( [facility]) ABG O2 saturation 96.2 % 95.0-99.0 ABG O2 Saturation [facility] ([facility]) ID Date Data Source [id number] 05/17/2020 05:50:00 AM EST [place] ([facility]) Name Value Range Interpretation Code Description Data Demetrice rce(s) Supporting Document(s) ABG pH (arterial) 7.354 units 7.350-7.450 ABG pH (Arterial ) [facility] ([facility]) ABG partial pressure CO2 38.2 mmHg 35.0-45.0 ABG Partial Pressure CO2 [place] ([facility]) ABG HCO3 20.8 mEq/L 22.0-26.0 Below low normal Abg Hco3 [place] ( [facility]) ABG total CO2 22.0 mEq/L 22.0-29.0 ABG Total CO2 [place] ( [facility]) ABG partial pressure O2 82.7 mmHg 75.0-100.0 ABG Partial Pressure O2 [place] ([facility]) ABG base excess -2.0-2.0 Below low normal ABG Base Exces s [facility] ([facility]) ABG O2 saturation 96.2 % 95.0-99.0 ABG O2 Saturation [facility] ([facility]) ABG standard HCO3 20.9 mEq/L 22.0-26.0 Below low normal ABG Standard HCO3 [facility] ([facility]) ID Date Data Source [id number] 05/17/2020 05:50:00 AM EST [place] ([facility]) Name Value Range Interpretation Code Description Data Demetrice rce(s) Supporting Document(s) ABG pH (arterial) 7.354 units 7.350-7.450 ABG pH (Arterial ) [facility] ([facility]) ABG partial pressure CO2 38.2 mmHg 35.0-45.0 ABG Partial Pressure CO2 [facility] ([facility]) ABG partial pressure O2 82.7 mmHg 75.0-100.0 ABG Partial Pressure O2 [place] ([facility]) ABG total CO2 22.0 mEq/L 22.0-29.0 ABG Total CO2 [place] ( [facility]) ABG base excess -2.0-2.0 Below low normal ABG Base Exces s [facility] ([facility]) ABG HCO3 20.8 mEq/L 22.0-26.0 Below low normal Abg Hco3 [place] ( [facility]) ABG standard HCO3 20.9 mEq/L 22.0-26.0 Below low normal ABG Standard HCO3 [facility] ([facility]) ABG O2 saturation 96.2 % 95.0-99.0 ABG O2 Saturation [facility] ([facility]) ID Date Data Source [id number] 05/17/2020 05:50:00 AM EST [place] ([facility]) Name Value Range Interpretation Code Description Data Demetrice rce(s) Supporting Document(s) ABG pH (arterial) 7.354 units 7.350-7.450 ABG pH (Arterial ) [facility] ([facility]) ABG partial pressure O2 82.7 mmHg 75.0-100.0 ABG Partial Pressure O2 [facility] ([facility]) ABG total CO2 22.0 mEq/L 22.0-29.0 ABG Total CO2 [place] ( [facility]) ABG partial pressure CO2 38.2 mmHg 35.0-45.0 ABG Partial Pressure CO2 [facility] ([facility]) ABG standard HCO3 20.9 mEq/L 22.0-26.0 Below low normal ABG Standard HCO3 [place] ([facility]) ABG base excess -2.0-2.0 Below low normal ABG Base Exces s [place] ([facility]) ABG HCO3 20.8 mEq/L 22.0-26.0 Below low normal Abg Hco3 [place] ( [facility]) ABG O2 saturation 96.2 % 95.0-99.0 ABG O2 Saturation [place] ([facility]) ID Date Data Source [id number] 05/17/2020 05:11:00 AM EST [facility]) Name Value Range Interpretation Code Description Data Demetrice rce(s) Supporting Document(s) sars covid-19 amplification negative negative Sars Cov id-19 Amplification [facility]) ID Date Data Source [id number] 05/17/2020 05:11:00 AM EST [facility]) Name Value Range Interpretation Code Description Data Demetrice rce(s) Supporting Document(s) sars covid-19 amplification negative negative Sars Cov id-19 Amplification [facility]) ID Date Data Source [id number] 05/17/2020 05:11:00 AM EST [facility]) Name Value Range Interpretation Code Description Data Demetrice rce(s) Supporting Document(s) sars covid-19 amplification negative negative Sars Cov id-19 Amplification [facility]) ID Date Data Source [id number] 05/17/2020 05:11:00 AM EST [place] ([facility]) Name Value Range Interpretation Code Description Data Demetrice rce(s) Supporting Document(s) sars covid-19 amplification negative negative [facility] ID Date Data Source [id number] 05/17/2020 05:11:00 AM EST [place] ([facility]) Name Value Range Interpretation Code Description Data Demetrice rce(s) Supporting Document(s) sars covid-19 amplification negative negative Sars Cov id-19 Amplification [place] ([facility]) ID Date Data Source [id number] 05/17/2020 05:11:00 AM [facility] Name Value Range Interpretation Code Description Data Demetrice rce(s) Supporting Document(s) sars covid-19 amplification negative negative [facility]ars Cov id-[facility] ID Date Data Source [id number] 05/17/2020 05:11:00 AM EST [place] ([facility]) Name Value Range Interpretation Code Description Data Demetrice rce(s) Supporting Document(s) sars covid-19 amplification negative negative [facility]ars Cov id-[facility] ID Date Data Source [id number] 05/17/2020 05:11:00 AM EST [place] ([facility]) Name Value Range Interpretation Code Description Data Demetrice rce(s) Supporting Document(s) sars covid-19 amplification negative negative [facility]ars Cov id-[facility] ID Date Data Source [id number] 05/17/2020 05:11:00 AM [facility] Name Value Range Interpretation Code Description Data Demetrice rce(s) Supporting Document(s) sars covid-19 amplification negative negative Sars Cov id-19 Amplification [place] ([facility]) ID Date Data Source [id number] 05/17/2020 05:11:00 AM EST [place] ([facility]) Name Value Range Interpretation Code Description Data Demetrice rce(s) Supporting Document(s) sars covid-19 amplification negative negative [facility]ars Cov id-[facility] ID Date Data Source [id number] 05/17/2020 05:11:00 AM EST [facility]) Name Value Range Interpretation Code Description Data Demetrice rce(s) Supporting Document(s) sars covid-19 amplification negative negative Sars Cov id-19 Amplification [facility]) ID Date Data Source [id number] 05/17/2020 05:11:00 AM EST [place] ([facility]) Name Value Range Interpretation Code Description Data Demetrice rce(s) Supporting Document(s) sars covid-19 amplification negative negative Sars Cov id-19 Amplification [place] ([facility]) ID Date Data Source [id number] 05/17/2020 03:28:00 AM EST [facility]) Name Value Range Interpretation Code Description Data Demetrice rce(s) Supporting Document(s) ABG pH (arterial) 7.375 units 7.350-7.450 ABG pH (Arterial ) [facility] ([facility]) ABG partial pressure O2 142.3 mmHg 75.0-100.0 Above high normal ABG Partial Pressure O2 [place] ([facility]) ABG total CO2 22.6 mEq/L 22.0-29.0 ABG Total CO2 [place] ( [facility]) ABG partial pressure CO2 37.6 mmHg 35.0-45.0 ABG Partial Pressure CO2 [place] ([facility]) ABG HCO3 21.5 mEq/L 22.0-26.0 Below low normal Abg Hco3 [place] ( [facility]) ABG standard HCO3 21.8 mEq/L 22.0-26.0 Below low normal ABG Standard HCO3 [place] ([facility]) ABG base excess -2.0-2.0 Below low normal ABG Base Exces s [place] ([facility]) ABG O2 saturation 99.0 % 95.0-99.0 ABG O2 Saturation [place] ([facility]) ID Date Data Source [id number] 05/17/2020 03:28:00 AM EST [place] ([facility]) Name Value Range Interpretation Code Description Data Demetrice rce(s) Supporting Document(s) ABG pH (arterial) 7.375 units 7.350-7.450 ABG pH (Arterial ) [place] ([facility]) ABG partial pressure CO2 37.6 mmHg 35.0-45.0 ABG Partial Pressure CO2 [place] ([facility]) ABG partial pressure O2 142.3 mmHg 75.0-100.0 Above high normal ABG Partial Pressure O2 [place] ([facility]) ABG total CO2 22.6 mEq/L 22.0-29.0 ABG Total CO2 [place] ( [facility]) ABG standard HCO3 21.8 mEq/L 22.0-26.0 Below low normal ABG Standard HCO3 [place] ([facility]) ABG HCO3 21.5 mEq/L 22.0-26.0 Below low normal Abg Hco3 [place] ( [facility]) ABG base excess -2.0-2.0 Below low normal ABG Base Exces s [place] ([facility]) ABG O2 saturation 99.0 % 95.0-99.0 ABG O2 Saturation [place] ([facility]) ID Date Data Source [id number] 05/17/2020 03:28:00 AM EST [place] ([facility]) Name Value Range Interpretation Code Description Data Demetrice rce(s) Supporting Document(s) ABG pH (arterial) 7.375 units 7.350-7.450 ABG pH (Arterial ) [facility] ([facility]) ABG partial pressure O2 142.3 mmHg 75.0-100.0 Above high normal ABG Partial Pressure O2 [place] ([facility]) ABG partial pressure CO2 37.6 mmHg 35.0-45.0 ABG Partial Pressure CO2 [place] ([facility]) ABG total CO2 22.6 mEq/L 22.0-29.0 ABG Total CO2 [place] ( [facility]) ABG HCO3 21.5 mEq/L 22.0-26.0 Below low normal Abg Hco3 [place] ( [facility]) ABG standard HCO3 21.8 mEq/L 22.0-26.0 Below low normal ABG Standard HCO3 [place] ([facility]) ABG base excess -2.0-2.0 Below low normal ABG Base Exces s [place] ([facility]) ABG O2 saturation 99.0 % 95.0-99.0 ABG O2 Saturation [place] ([facility]) ID Date Data Source [id number] 05/17/2020 03:28:00 AM EST [place] ([facility]) Name Value Range Interpretation Code Description Data Demetrice rce(s) Supporting Document(s) ABG pH (arterial) 7.375 units 7.350-7.450 ABG pH (Arterial ) [place] ([facility]) ABG partial pressure CO2 37.6 mmHg 35.0-45.0 ABG Partial Pressure CO2 [place] ([facility]) ABG partial pressure O2 142.3 mmHg 75.0-100.0 Above high normal ABG Partial Pressure O2 [place] ([facility]) ABG total CO2 22.6 mEq/L 22.0-29.0 ABG Total CO2 [place] ( [facility]) ABG base excess -2.0-2.0 Below low normal ABG Base Exces s [place] ([facility]) ABG HCO3 21.5 mEq/L 22.0-26.0 Below low normal Abg Hco3 [place] ( [facility]) ABG standard HCO3 21.8 mEq/L 22.0-26.0 Below low normal ABG Standard HCO3 [place] ([facility]) ABG O2 saturation 99.0 % 95.0-99.0 ABG O2 Saturation [place] ([facility]) ID Date Data Source [id number] 05/17/2020 03:28:00 AM EST [place] ([facility]) Name Value Range Interpretation Code Description Data Demetrice rce(s) Supporting Document(s) ABG pH (arterial) 7.375 units 7.350-7.450 ABG pH (Arterial ) [facility] ([facility]) ABG partial pressure O2 142.3 mmHg 75.0-100.0 Above high normal ABG Partial Pressure O2 [place] ([facility]) ABG partial pressure CO2 37.6 mmHg 35.0-45.0 ABG Partial Pressure CO2 [place] ([facility]) ABG total CO2 22.6 mEq/L 22.0-29.0 ABG Total CO2 [place] ( [facility]) ABG HCO3 21.5 mEq/L 22.0-26.0 Below low normal Abg Hco3 [place] ( [facility]) ABG base excess -2.0-2.0 Below low normal ABG Base Exces s [place] ([facility]) ABG standard HCO3 21.8 mEq/L 22.0-26.0 Below low normal ABG Standard HCO3 [place] ([facility]) ABG O2 saturation 99.0 % 95.0-99.0 ABG O2 Saturation [place] ([facility]) ID Date Data Source [id number] 05/17/2020 03:28:00 AM EST [place] ([facility]) Name Value Range Interpretation Code Description Data Demetrice rce(s) Supporting Document(s) ABG pH (arterial) 7.375 units 7.350-7.450 ABG pH (Arterial ) [place] ([facility]) ABG partial pressure CO2 37.6 mmHg 35.0-45.0 ABG Partial Pressure CO2 [place] ([facility]) ABG partial pressure O2 142.3 mmHg 75.0-100.0 Above high normal ABG Partial Pressure O2 [place] ([facility]) ABG total CO2 22.6 mEq/L 22.0-29.0 ABG Total CO2 [place] ( [facility]) ABG HCO3 21.5 mEq/L 22.0-26.0 Below low normal Abg Hco3 [place] ( [facility]) ABG base excess -2.0-2.0 Below low normal ABG Base Exces s [place] ([facility]) ABG standard HCO3 21.8 mEq/L 22.0-26.0 Below low normal ABG Standard HCO3 [place] ([facility]) ABG O2 saturation 99.0 % 95.0-99.0 ABG O2 Saturation [place] ([facility]) ID Date Data Source [id number] 05/17/2020 03:28:00 AM EST [facility]) Name Value Range Interpretation Code Description Data Demetrice rce(s) Supporting Document(s) ABG pH (arterial) 7.375 units 7.350-7.450 ABG pH (Arterial ) [place] ([facility]) ABG partial pressure CO2 37.6 mmHg 35.0-45.0 ABG Partial Pressure CO2 [place] ([facility]) ABG partial pressure O2 142.3 mmHg 75.0-100.0 Above high normal ABG Partial Pressure O2 [place] ([facility]) ABG HCO3 21.5 mEq/L 22.0-26.0 Below low normal Abg Hco3 [place] ( [facility]) ABG total CO2 22.6 mEq/L 22.0-29.0 ABG Total CO2 [place] ( [facility]) ABG base excess -2.0-2.0 Below low normal ABG Base Exces s [place] ([facility]) ABG O2 saturation 99.0 % 95.0-99.0 ABG O2 Saturation [place] ([facility]) ABG standard HCO3 21.8 mEq/L 22.0-26.0 Below low normal ABG Standard HCO3 [place] ([facility]) ID Date Data Source [id number] 05/17/2020 03:28:00 AM EST [place] ([facility]) Name Value Range Interpretation Code Description Data Demetrice rce(s) Supporting Document(s) ABG pH (arterial) 7.375 units 7.350-7.450 ABG pH (Arterial ) [place] ([facility]) ABG total CO2 22.6 mEq/L 22.0-29.0 ABG Total CO2 [place] ( [facility]) ABG partial pressure CO2 37.6 mmHg 35.0-45.0 ABG Partial Pressure CO2 [place] ([facility]) ABG partial pressure O2 142.3 mmHg 75.0-100.0 Above high normal ABG Partial Pressure O2 [place] ([facility]) ABG base excess -2.0-2.0 Below low normal ABG Base Exces s [place] ([facility]) ABG standard HCO3 21.8 mEq/L 22.0-26.0 Below low normal ABG Standard HCO3 [place] ([facility]) ABG HCO3 21.5 mEq/L 22.0-26.0 Below low normal Abg Hco3 [place] ( [facility]) ABG O2 saturation 99.0 % 95.0-99.0 ABG O2 Saturation [place] ([facility]) ID Date Data Source [id number] 05/17/2020 03:28:00 AM EST [place] ([facility]) Name Value Range Interpretation Code Description Data Demetrice rce(s) Supporting Document(s) ABG pH (arterial) 7.375 units 7.350-7.450 ABG pH (Arterial ) [place] ([facility]) ABG total CO2 22.6 mEq/L 22.0-29.0 ABG Total CO2 [place] ( [facility]) ABG partial pressure CO2 37.6 mmHg 35.0-45.0 ABG Partial Pressure CO2 [place] ([facility]) ABG partial pressure O2 142.3 mmHg 75.0-100.0 Above high normal ABG Partial Pressure O2 [place] ([facility]) ABG base excess -2.0-2.0 Below low normal ABG Base Exces s [place] ([facility]) ABG HCO3 21.5 mEq/L 22.0-26.0 Below low normal Abg Hco3 [place] ( [facility]) ABG O2 saturation 99.0 % 95.0-99.0 ABG O2 Saturation [place] ([facility]) ABG standard HCO3 21.8 mEq/L 22.0-26.0 Below low normal ABG Standard HCO3 [place] ([facility]) ID Date Data Source [id number] 05/17/2020 03:28:00 AM EST [place] ([facility]) Name Value Range Interpretation Code Description Data Demetrice rce(s) Supporting Document(s) ABG pH (arterial) 7.375 units 7.350-7.450 ABG pH (Arterial ) [place] ([facility]) ABG partial pressure CO2 37.6 mmHg 35.0-45.0 ABG Partial Pressure CO2 [place] ([facility]) ABG partial pressure O2 142.3 mmHg 75.0-100.0 Above high normal ABG Partial Pressure O2 [place] ([facility]) ABG total CO2 22.6 mEq/L 22.0-29.0 ABG Total CO2 [place] ( [facility]) ABG standard HCO3 21.8 mEq/L 22.0-26.0 Below low normal ABG Standard HCO3 [place] ([facility]) ABG HCO3 21.5 mEq/L 22.0-26.0 Below low normal Abg Hco3 [place] ( [facility]) ABG base excess -2.0-2.0 Below low normal ABG Base Exces s [place] ([facility]) ABG O2 saturation 99.0 % 95.0-99.0 ABG O2 Saturation [place] ([facility]) ID Date Data Source [id number] 05/17/2020 03:28:00 AM EST [place] ([facility]) Name Value Range Interpretation Code Description Data Demetrice rce(s) Supporting Document(s) ABG pH (arterial) 7.375 units 7.350-7.450 ABG pH (Arterial ) [place] ([facility]) ABG partial pressure CO2 37.6 mmHg 35.0-45.0 ABG Partial Pressure CO2 [place] ([facility]) ABG total CO2 22.6 mEq/L 22.0-29.0 ABG Total CO2 [place] ( [facility]) ABG partial pressure O2 142.3 mmHg 75.0-100.0 Above high normal ABG Partial Pressure O2 [place] ([facility]) ABG HCO3 21.5 mEq/L 22.0-26.0 Below low normal Abg Hco3 [place] ( [facility]) ABG base excess -2.0-2.0 Below low normal ABG Base Exces s [place] ([facility]) ABG O2 saturation 99.0 % 95.0-99.0 ABG O2 Saturation [place] ([facility]) ABG standard HCO3 21.8 mEq/L 22.0-26.0 Below low normal ABG Standard HCO3 [place] ([facility]) ID Date Data Source [id number] 05/17/2020 03:28:00 AM EST [place] ([facility]) Name Value Range Interpretation Code Description Data Demetrice rce(s) Supporting Document(s) ABG partial pressure CO2 37.6 mmHg 35.0-45.0 ABG Partial Pressure CO2 [place] ([facility]) ABG pH (arterial) 7.375 units 7.350-7.450 ABG pH (Arterial ) [place] ([facility]) ABG total CO2 22.6 mEq/L 22.0-29.0 ABG Total CO2 [place] ( [facility]) ABG partial pressure O2 142.3 mmHg 75.0-100.0 Above high normal ABG Partial Pressure O2 [place] ([facility]) ABG HCO3 21.5 mEq/L 22.0-26.0 Below low normal Abg Hco3 [place] ( [facility]) ABG O2 saturation 99.0 % 95.0-99.0 ABG O2 Saturation [place] ([facility]) ABG base excess -2.0-2.0 Below low normal ABG Base Exces s [place] ([facility]) ABG standard HCO3 21.8 mEq/L 22.0-26.0 Below low normal ABG Standard HCO3 [place] ([facility]) ID Date Data Source [id number] 05/07/2020 10:59:52 AM [facility] XR SPINE LUMBAR 4-MORE VIEWS [id number] RESULTInterpreted by:Corey Jack MDINDICATION:DDD/ Stenosis.TECHNIQUE: Multiple views of the thoracic and lumbar spine were obtained.COMPARISON: None.FINDINGS/IMPRESSION:THORACIC SPINE: 12 thoracic rib pairs are identified. No acute fracture or subluxation is seen. The vertebral body heights are maintained. The thoracic kyphotic alignment appears within normal limits.LUMBAR SPINE: No acute fracture or subluxation is identified. The vertebral body heights are maintained. Mild degenerative changes are seen at the L5-S1 level with intervertebral disc space narrowing and facet arthrosis. No subluxation is seen on the flexion and extension views.If symptoms persist, consider MRI examination to help further evaluate.This document has been electronically signed by Corey Jack MD on 05/07/2020 10:57 AM Name Value Range Interpretation Code Description Data Demetrice rce(s) Supporting Document(s) ID Date Data Source [id number] 05/07/2020 10:59:52 AM [facility] XR SPINE-ENTIRE THORACIC AND LUMBAR- 2 O R 3 VIEW [id number] RESULTInterpreted by:Corey Jack MDINDICATION:DDD/ Stenosis.TECHNIQUE: Multiple views of the thoracic and lumbar spine were obtained.COMPARISON: None.FINDINGS/IMPRESSION:THORACIC SPINE: 12 thoracic rib pairs are identified. No acute fracture or subluxation is seen. The vertebral body heights are maintained. The thoracic kyphotic alignment appears within normal limits.LUMBAR SPINE: No acute fracture or subluxation is identified. The vertebral body heights are maintained. Mild degenerative changes are seen at the L5-S1 level with intervertebral disc space narrowing and facet arthrosis. No subluxation is seen on the flexion and extension views.If symptoms persist, consider MRI examination to help further evaluate.This document has been electronically signed by Corey Jack MD on 05/07/2020 10:57 AM Name Value Range Interpretation Code Description Data Demetrice rce(s) Supporting Document(s) ID Date Data Source [id number] 05/07/2020 10:52:31 AM EST [facility] XR PELVIS 1-2 VIEWS [id number] RESULTInt erpreted by:Corey Jack MDINDICATION: DDD/stenosis.TECHNIQUE: Single frontal view the pelvis were obtained.COMPARISON: None.FINDINGS: No acute fracture or dislocation. Bony alignment appears anatomic. The periarticular soft tissues appear unremarkable.IMPRESSION:No acute bony pathology.This document has been electronically signed by Corey Jack MD on 05/07/2020 10:50 AM Name Value Range Interpretation Code Description Data Demetrice rce(s) Supporting Document(s) ID Date Data Source [id number] 04/21/2020 11:38:00 AM EDT [facility] [address] [place] [address] PHONE: [phone] FAX: [phone] Name .................. : DEMOND Wren Acct Number.................. : [id number] ROOM. ................. : TR-02 MR Number ................... : [id number] Stay type ............. : E/R Discharge Date......... ... : 04/20/20 Admit Date ......... : 04/19/20 Admit Phys .................... : GIOVANNI HOFF Date of ....... : 1990 Family Phys ................... : CHRISTI Phone .................. : [phone] Age ................................ : 30 Film# .................. .:[id number] Sex ................................. : F Unsigned transcriptions are preliminary reports and do not represent a medical or legal document SPINE LS AP & LAT [id number] COMPLETE:04/20/20 00:38 DLA 75938 Reason(s): Trauma/Injury LUMBAR SPINE SERIES: 2-VIEWS HISTORY: Trauma, back pain. COMPARISON: 07/09/19 FINDINGS: Normal lordosis. No fracture. Mild disc height loss at L5-S1. The SI joints are patent. IMPRESSION: Minimal degenerative disc disease L5-S1. Normal lordosis. No fracture. Electronically Reviewed and Signed By Jozef Esparza MD , 04/21/20 11:38, APURVA Transcribe Initials: CELSO , Transcribe Date: 04/20/20 16:12, Dictation Date: Copy for: 710 MED REC DISCHARGED Page 1 of 1 Name Value Range Interpretation Code Description Data Demetrice rce(s) Supporting Document(s) ID Date Data Source [id number] 04/21/2020 11:37:00 [place] [address] PHONE: [phone] FAX: [phone] Name .................. : DEMOND Wren Acct Number.................. : [id number] ROOM. ................. : TR-02 MR Number ................... : [id number] Stay type ............. : E/R Discharge Date......... ... : 04/20/20 Admit Date ......... : 04/19/20 Admit Phys .................... : GIOVANNI HOFF Date of ....... : 1990 Family Phys ................... : CHRISTI Phone .................. : [phone] Age ................................ : 30 Film# .................. .:[id number] Sex ................................. : F Unsigned transcriptions are preliminary reports and do not represent a medical or legal document SACRUM & COCCYX [id number] COMPLETE:04/20/20 00:38 DLA 98770 Reason(s): Trauma/Injury SACRUM AND COCCYX SERIES: INDICATION: Trauma, pain. FINDINGS: There is normal alignment and position of the bones of the sacrum and coccyx. No evidence for a fracture or any other abnormalities can be noted. IMPRESSION: Unremarkable sacrum and coccyx. Electronically Reviewed and Signed By Jozef Esparza MD , 04/21/20 11:37, APURVA Transcribe Initials: CELSO , Transcribe Date: 04/20/20 16:14, Dictation Date: Copy for: 710 MED REC DISCHARGED Page 1 of 1 Name Value Range Interpretation Code Description Data Demetrice rce(s) Supporting Document(s) ID Date Data Source [id number] 04/19/2020 11:16:00 PM EDT [facility] 1 OrderSheet [facility] Emergency Department [address] [place] [address] Phone #: ext- [phone] 04/19/2020 23:16 Patient: [id number] Sex: F : 1990 Age: 30yWEIGHT:101.6 kg (S) HEIGHT:70 inches (S) BMI:32.1ALLERGIES: No Known Drug AllergyCHIEF COMPLAINT: back pain, chronic back painDIAGNOSIS: Lumbar sprain, BackacheLAB ORDERSOrder Description Priority Entered Acknowledged InitialedDIAGNOSTIC STUDY ORDERSOrder Description Priority Entered Acknowledged InitialedSpine Lumbar AP STAT 23:43 04/19/2020 Ack'd: 23:48 Mady 00:09 04/20/2020And LAT Eron Davila R.N.(Oxygen?(No)) Renny; R.N. Reason for Study: Trauma/InjurySacrum / Coccyx STAT 23:43 04/19/2020 Ack'd: 23:48 Mady 00:10 04/20/2020(Oxygen?(No)) Eron Davila RWolfgangNWolfgang West M.D.; R.N. Reason for Study: Trauma/InjuryMEDICATION/IV/DRIP/FLUID ORDERSOrder Description Priority Entered Acknowledged InitialedToradol IM 30 mg 23:42 04/19/2020 Ack'd: 23:48 Mady 23:56 MadyEron Morales R.N. RWolfgangNWolfgang MWolfgangDWolfgang;Ativan IM 2 mg 23:42 04/19/2020 Ack'd: 23:48 Mady 23:56 Mady Edward(HIGH ALERT Eron Davila R.N. RWolfgangN.MEDICATION) Renny;Lidocaine Patch 23:42 04/19/2020 Ack'd: 23:48 Mady 00:22 04/20/2020Topical (Patch 5 %) Eron Davila RWolfgangNWolfgang West1 Patch (On for 12 M.D.; R.N.hours, off for 12hours.)GENERAL ORDERSOrder Description Priority Entered Acknowledged Initialed[Electronically signed by Mady Waters R.N. (00:58 04/20/2020)][Electronically signed by Eron Davila M.D. (01:04 04/20/2020)] 2 OrderSheet [facility] Emergency Department [address] [place] [address] Phone #: [phone] 04/19/2020 23:16 Patient: RAVI LAGOS Sex: F : 1990 Age: 30y[Electronically locked by Mady Waters R.N. (00:58 04/20/2020)] Name Value Range Interpretation Code Description Data Demetrice rce(s) Supporting Document(s) ID Date Data Source [id number] 04/19/2020 11:16:00 PM EDT [facility] 1 Medication Reconciliation Report [facility] Emergency Department [address] [place] [address] Phone #: ext- [phone] 04/19/2020 23:16 Patient: RAVI LAGOS Sex: F : 1990 Age: 30yWeight: 101.6 kgHeight/Length: 70 in.BMI: 32.1ALLERGIES: No Known Drug AllergyThe patient's Home Medications are listed below:CONTINUE TAKING THE FOLLOWING MEDICATIONS: Omeprazole Oral 40 mg, dailyThe source(s) of the original Home Medication information:Not obtained.The following Medications were given to the patient in the Emergency Department:Toradol [IM] IM 30 mg, administered: 04/19/2020 11:56:00 PMAtivan [IM] IM 2 mg, administered: 04/19/2020 11:56:00 PMLidocaine Patch Transdermal 1 patch, administered: 04/20/2020 12:22:00 AMThe following Medications were prescribed to the patient:ibuprofen 600 mg tablet Take 1 tablet four times a day as needed for pain for 7 days -- Dispense 28tablet. Refills: 0. Substitution permitted.[facility] #29 - [address] ; [place] [address]. .Lidoderm 5 % topical patch Apply 1 patch once a day for 7 days -- Take off after 12 hrs. Dispense 7patch. Refills: 0. Substitution permitted.[facility] #85 - [id number] ; [place], [place] [id number]. .cyclobenzaprine 5 mg tablet Take 1 tablet three times a day for 5 days -- Dispense 15 tablet. Refills: 0.Substitution permitted.[facility] #09 - [address] ; [place] [address]. Phone: . -- Eron Davila M.D. 2 Medication Reconciliation Report [facility] Emergency Department [address] [place] [address] Phone #: ext- [phone] 04/19/2020 23:16 Patient: RAVI LAGOS Sex: F : 1990 Age: 30y Name Value Range Interpretation Code Description Data Demetrice rce(s) Supporting Document(s) ID Date Data Source [id number] 04/19/2020 11:16:00 PM EDT [facility] 1 Medication Administration Record [facility] Emergency Department [address] [place] [address] Phone #: ext- [phone] 04/19/2020 23:16 Patient: RAVI LAGOS Sex: F : 1990 Age: 30yWeight: 101.6 kgHeight/Length: 70 inBMI: 32.1ALLERGIES: No Known Drug Allergy Date/Time Medication Administered Medication OrderedGiven TORADOL [IM] (KETOROLAC Toradol IM 30 mg23:56 04/19/2020 TROMETHAMINE)Mady West R.N. Dose: 30 mg IMGiven ATIVAN [IM] (LORAZEPAM) Ativan IM 2 mg (HIGH ALERT23:56 020 Dose: 2 mg IM MEDICATION)Mady West R.N.Given LIDOCAINE PATCH Lidocaine Patch Topical (Patch 500:22 04/20/2020 Dose: 1 patch Transdermal %) 1 Patch (On for 12 hours, offTina Edward West R.N. for 12 hours.) Name Value Range Interpretation Code Description Data Demetrice rce(s) Supporting Document(s) ID Date Data Source [id number] 04/19/2020 11:16:00 PM EDT [facility] 1 General Instructions [facility] Emergency Department [address] [place] [address] Phone #: ext- [phone] 04/19/2020 23:16 Patient: RAVI LAGOS Sex: F : 1990 Age: 30yAcute lumbar strain.Chronic nontraumatic lumbar back pain.INSTRUCTIONSApply ice for 30 minutes four times a day for two days followed by moist heat 30 minutes four times a dayfor three days. Don't apply ice directly to skin, don't use while asleep and don't use high setting on heatingpad. Limit lifting until well. No strenuous activity until better. Return to work in four days.Warnings: GENERAL WARNINGS: Return or contact your physician immediately if your conditionworsens or changes unexpectedly, if not improving as expected, or if other problems arise.SPECIFICALLY, return if you develop weakness of the foot or leg, numbness, tingling, pain or incontinenceof feces (loss of bowel control) or urine (loss of bladder control).Your Current Medications: Your current home medications have been reviewed.CONTINUE TAKING THE FOLLOWING MEDICATIONS:Omeprazole Oral : 40 mg daily.Prescription Medications:ibuprofen 600 mg tablet Take 1 tablet four times a day as needed for pain for 7 days -- Dispense 28tablet. Refills: 0. Substitution permitted.[facility] #38 - [id number] ; [place] [address]. .Lidoderm 5 % topical patch Apply 1 patch once a day for 7 days -- Take off after 12 hrs. Dispense 7patch. Refills: 0. Substitution permitted.[facility] #19 - [address] ; [place] [address]. .cyclobenzaprine 5 mg tablet Take 1 tablet three times a day for 5 days -- Dispense 15 tablet. Refills: 0.Substitution permitted.[facility] #23 - [address] ; [place], [place] [id number]. Phone: .Follow-up:Return to the emergency department as needed. Follow up with your healthcare provider in five dayseven if well. Call for an appointment. Reason for referral: evaluation and treatment. Summary of careprovided to patient via paper. 2 General Instructions [facility] Emergency Department [address] [place] [address] Phone #: ext- [phone] 04/19/2020 23:16 Patient: RAVI LAGOS Sex: F : 1990 Age: 30yUnderstanding of the discharge instructions verbalized by patient. Expected course of injury, dischargeinstructions, activity level, diet, prescriptions x3, follow-up appointment and risks and benefits of treatmentreviewed with patient and spouse and understanding verbalized. Agrees to plan of care. ADDITIONAL INFORMATIONBack Pain (Acute or Chronic)Back pain is one of the most common problems. The good news is that most people feel better in 1 to2 weeks, and most of the rest in 1 to 2 months. Most people can remain active.People who have pain describe it differently--not everyone is the same. The pain can be sharp, stabbing, shooting, aching, cramping or burning. 3 General Instructions [facility] Emergency Department [address] [place] [address] Phone #: ext- [phone] 04/19/2020 23:16 Patient: RAVI LAGOS Sex: F : 1990 Age: 30y Movement, standing, bending, lifting, sitting, or walking may worsen pain. It can be localized to one spot or area, or it can be more generalized. It can spread or radiate upwards, to the front, or go down your arms or legs (sciatica). It can cause muscle spasm.Most of the time, mechanical problems with the muscles or spine cause the pain. Mechanicalproblems are usually caused by an injury to the muscles or ligaments. While illness can cause backpain, it is usually not caused by a serious illness. Mechanical problems include: Physical activity such as sports, exercise, work, or normal activity Overexertion, lifting, pushing, pulling incorrectly or too aggressively Sudden twisting, bending, or stretching from an accident, or accidental movement Poor posture Stretching or moving wrong, without noticing pain at the time Poor coordination, lack of regular exercise (check with your doctor about this) Spinal disc disease or arthritis StressPain can also be related to , or illness like appendicitis, bladder or kidney infections, pelvicinfections, and many other things.Acute back pain usually gets better in 1 to 2 weeks. Back pain related to disk disease, arthritis in thespinal joints or spinal stenosis (narrowing of the spinal canal) can become chronic and last for monthsor years.Unless you had a physical injury (for example, a car accident or fall) X-rays are usually not needed forthe initial evaluation of back pain. If pain continues and does not respond to medical treatment,X-rays and other tests may be needed.Home careTry these home care recommendations: When in bed, try to find a position of comfort. A firm mattress is best. Try lying flat on your back with pillows under your knees. You can also try lying on your side with your knees bent up towards your chest and a pillow between your knees. At first, do not try to stretch out the sore spots. If there is a strain, it is not like the good soreness you get after exercising without an injury. In this case, stretching may make it worse. 4 General Instructions [facility] Emergency Department [address] [place] [address] Phone #: ext- [phone] 04/19/2020 23:16 Patient: RAVI LAGOS Sex: F : 1990 Age: 30y Don't sit for long periods, as in a long car ride or during other travel. This puts more stress on the lower back than standing or walking. During the first 24 to 72 hours after an acute injury or flare up of chronic back pain, apply an ice pack to the painful area for 20 minutes and then remove it for 20 minutes. Do this over a period of 60 to 90 minutes or several times a day. This will reduce swelling and pain. Wrap the ice pack in a thin towel or plastic to protect your skin. You can start with ice, then switch to heat. Heat (hot shower, hot bath, or heating pad) reduces pain and works well for muscle spasms. Heat can be applied to the painful area for 20 minutes then remove it for 20 minutes. Do this over a period of 60 to 90 minutes or several times a day. Do not sleep on a heating pad. It can lead to skin gay or tissue damage. You can alternate ice and heat therapy. Talk with your doctor about the best treatment for your back pain. Therapeutic massage can help relax the back muscles without stretching them. Be aware of safe lifting methods and do not lift anything without stretching first.MedicinesTalk to your doctor before using medicine, especially if you have other medical problems or are takingother medicines. You may use [id number] medicine as directed on the bottle to control pain, unless another pain medicine was prescribed. If you have chronic conditions like diabetes, liver or kidney disease, stomach ulcers, or gastrointestinal bleeding, or are taking blood thinners, talk to your doctor before taking any medicine. Be careful if you are given a prescription medicines, narcotics, or medicine for muscle spasms. They can cause drowsiness, affect your coordination, reflexes, and judgement. Do not drive or operate heavy machinery.Follow-up careFollow up with your healthcare provider, or as advised.A radiologist will review any X-rays that were taken. Your provide will notify you of any new findingsthat may affect your care.Call [phone] if any of the following occur: Trouble breathing 5 General Instructions [facility] Emergency Department [address] [place] [address] Phone #: ext- [phone] 04/19/2020 23:16 Patient: RAVI LAGOS Sex: F : 1990 Age: 30y Confusion Very drowsy or trouble awakening Fainting or loss of consciousness Rapid or very slow heart rate Loss of bowel or bladder controlWhen to seek medical adviceCall your healthcare provider right away if any of these occur: Pain becomes worse or spreads to your legs Weakness or numbness in one or both legs Numbness in the groin or genital area [id number] [employer]. [address] [place] [address]. All rights reserved. This information is not intended as asubstitute for professional medical care. Always follow your healthcare professional's instructions.Back Pain (Acute or Chronic) 6 General Instructions [facility] Emergency Department [address] [place] [address] Phone #: ext- [phone] 04/19/2020 23:16 Patient: RAVI LAGOS Sex: F : 1990 Age: 30yBack pain is one of the most common problems. The good news is that most people feel better in 1 to2 weeks, and most of the rest in 1 to 2 months. Most people can remain active.People who have pain describe it differently--not everyone is the same. The pain can be sharp, stabbing, shooting, aching, cramping or burning. Movement, standing, bending, lifting, sitting, or walking may worsen pain. It can be localized to one spot or area, or it can be more generalized. It can spread or radiate upwards, to the front, or go down your arms or legs (sciatica). It can cause muscle spasm.Most of the time, mechanical problems with the muscles or spine cause the pain. Mechanicalproblems are usually caused by an injury to the muscles or ligaments. While illness can cause backpain, it is usually not caused by a serious illness. Mechanical problems include: 7 General Instructions [facility] Emergency Department [address] [place] [address] Phone #: ext- [phone] 04/19/2020 23:16 Patient: RAVI LAGOS [facility] [id number] Sex: F : 1990 Age: 30y Physical activity such as sports, exercise, work, or normal activity Overexertion, lifting, pushing, pulling incorrectly or too aggressively Sudden twisting, bending, or stretching from an accident, or accidental movement Poor posture Stretching or moving wrong, without noticing pain at the time Poor coordination, lack of regular exercise (check with your doctor about this) Spinal disc disease or arthritis StressPain can also be related to , or illness like appendicitis, bladder or kidney infections, pelvicinfections, and many other things.Acute back pain usually gets better in 1 to 2 weeks. Back pain related to disk disease, arthritis in thespinal joints or spinal stenosis (narrowing of the spinal canal) can become chronic and last for monthsor years.Unless you had a physical injury (for example, a car accident or fall) X-rays are usually not needed forthe initial evaluation of back pain. If pain continues and does not respond to medical treatment,X-rays and other tests may be needed.Home careTry these home care recommendations: When in bed, try to find a position of comfort. A firm mattress is best. Try lying flat on your back with pillows under your knees. You can also try lying on your side with your knees bent up towards your chest and a pillow between your knees. At first, do not try to stretch out the sore spots. If there is a strain, it is not like the good soreness you get after exercising without an injury. In this case, stretching may make it worse. Don't sit for long periods, as in a long car ride or during other travel. This puts more stress on the lower back than standing or walking. During the first 24 to 72 hours after an acute injury or flare up of chronic back pain, apply an ice pack to the painful area for 20 minutes and then remove it for 20 minutes. Do this over a period of 60 to 90 minutes or several times a day. This will reduce swelling and pain. Wrap the ice pack in a thin towel or plastic to protect your skin. You can start with ice, then switch to heat. Heat (hot shower, hot bath, or heating pad) reduces pain and works well for muscle spasms. Heat can be applied to the painful area for 20 8 General Instructions [facility] Emergency Department [address] [place] [address] Phone #: ext- [phone] 04/19/2020 23:16 Patient: RAVI LAGOS Sex: F : 1990 Age: 30y minutes then remove it for 20 minutes. Do this over a period of 60 to 90 minutes or several times a day. Do not sleep on a heating pad. It can lead to skin gay or tissue damage. You can alternate ice and heat therapy. Talk with your doctor about the best treatment for your back pain. Therapeutic massage can help relax the back muscles without stretching them. Be aware of safe lifting methods and do not lift anything without stretching first.MedicinesTalk to your doctor before using medicine, especially if you have other medical problems or are takingother medicines. You may use kaga-tfp-[id number] medicine as directed on the bottle to control pain, unless another pain medicine was prescribed. If you have chronic conditions like diabetes, liver or kidney disease, stomach ulcers, or gastrointestinal bleeding, or are taking blood thinners, talk to your doctor before taking any medicine. Be careful if you are given a prescription medicines, narcotics, or medicine for muscle spasms. They can cause drowsiness, affect your coordination, reflexes, and judgement. Do not drive or operate heavy machinery.Follow-up careFollow up with your healthcare provider, or as advised.A radiologist will review any X-rays that were taken. Your provide will notify you of any new findingsthat may affect your care.Call [phone] [phone] if any of the following occur: Trouble breathing Confusion Very drowsy or trouble awakening Fainting or loss of consciousness Rapid or very slow heart rate Loss of bowel or bladder control 9 General Instructions [facility] Emergency Department [address] [place] [address] Phone #: ext- [phone] 04/19/2020 23:16 Patient: RAVI LAGOS Sex: F : 1990 Age: 30yWhen to seek medical adviceCall your healthcare provider right away if any of these occur: Pain becomes worse or spreads to your legs Weakness or numbness in one or both legs Numbness in the groin or genital area [id number] [employer]. [address] [place] [address]. All rights reserved. This information is not intended as asubstitute for professional medical care. Always follow your healthcare professional's instructions. You have been given the following additional information: Back Pain (Acute or Chronic) Back Pain (Acute or Chronic) Limit lifting until well. No strenuous activity until better. Return to work in four days.(Electronically signed by Eron Davila M.D. 04/20/2020 01:04) Name Value Range Interpretation Code Description Data Demetrice rce(s) Supporting Document(s) ID Date Data Source [id number] 04/19/2020 11:16:00 PM EDT [facility] 1 Clinical Report - Nurses [facility] Emergency Department [address] [place] [address] Phone #: ext [phone] 04/19/2020 23:16 Patient: RAVI LAGOS Sex: F : 1990 Age: 30yTRIAGEArrived by private vehicle. Historian: patient. 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 States that she is unable to stand up straight.). 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 Nothing works so I haven't taking Nothin"). --23:19 04/19/20 Mady West R.N.Acuity: LEVEL 4. --23:26 04/19/20 Mady West R.N.23:21 04/19/20. BP: 123/83. MAP: 96. HR: 91. RR: 18. O2 saturation: 97%. T emp: 98 F. Pain level now:03/11. --23:26 04/19/20 Mady West R.N.Weight: 101.6 kg stated. Height/Length: 70 inches Per Patient. BMI: 32.1. --23:17 04/19/20 Mady Wasserman R.N.MedicationsOmeprazole Oral 40 mg, daily. --23:20 04/19/20 Mady West R.N.AllergiesNo Known Drug Allergy. --23:04/19/20 Mady West R.N.PROBLEMS:GERD.Back Pain.Degenerative Joint Disease.Scoliosis.Asthma.Arthritis.Chronic Back Pain. --23:21 04/19/20 Mady West R.N.ADDITIONAL SURGERIES:Knee Surgery (Right ).Salpingectomy. --23:21 04/19/20 Mady West R.N.History 2 Clinical Report - Nurses [facility] Emergency Department [address] [place] [address] Phone #: ext- [phone] 04/19/2020 23:16 Patient: RAVI LAGOS Sex: F : 1990 Age: 30y PAST MEDICAL HX: Last normal menstrual period now. SOCIAL HX: Heavy tobacco smoker (cigarette)- 1-2 packs per day. Alcohol use. (rarely). No drug use. She was offered HIV testing but declined and hepatitis C testing but declined. She has not traveled outside the [place] Infectious disease exposure: No infectious disease exposure. The patient was not exposed to C-diff, MRSA, VRE or CRE. (No known exposures to COVID that she is aware of). SELF HARM ASSESSMENT: Self harm assessment was performed. The patient answered "no" to the question(s) "Do you have thoughts of harming or killing yourself?", "Do you have a plan for harming or killing yourself?" and "Do you have any dangerous items in your possession?". ABUSE ASSESSMENT: No report of abuse. FALL RISK ASSESSMENT: Fall risk assessment completed. Risk factors identified include severe pain and patient impairment of mobility. Fall interventions initiated. Bed in low position. Brakes on. Family at bedside. Call light in reach of patient. --23:26 04/19/20 Mady West R.N. PAST MEDICAL HX: Tetanus status: up-to-date. Immunizations: up-to-date. --23:04/19/20 Mady West R.N.PHYSICAL ASSESSMENTAmbulatory to room.GENERAL / NEURO / PSYCH: Alert. Oriented X 4. Appears in pain. No numbness.RESPIRATORY: Respirations not labored.CVS: Capillary refill less than 2 seconds.GI / : ( No GI/ symptoms).EXTREMITIES: Sensation intact in extremities.BACK: ( reports chronic "tail bone pain" for the past month). Limited ROM of the back. --23:27 04/19/20Mady West R.N.NURSING PROGRESS NOTESPatient gowned. Reassurance given. Call light placed in reach. Bed placed in lowest position. Brakesof bed on. --23:28 04/19/20 Mady West R.N. 23:56 04/19/2020 Toradol (Ketorolac Tromethamine) IM 30 mg given. Given in the right gluteus joanna. Allergies verified and confirmed 5 rights. Information reviewed with patient including reason for taking this medication. Verbalizes understanding. --23:56 04/19/20 Mady West R.N. 23:56 04/19/2020 Ativan (LORazepam) IM 2 mg given. Given in the right gluteus joanna. Allergies verified and confirmed 5 rights. Information reviewed with patient including reason for taking this medication and sedative warning. Verbalizes understanding. --23:56 04/19/20 Mady West R.N. 00:07 04/20/20. Patient transported to radiology by wheelchair with communications field technician. --00:09 04/20/20 Mady West R.N. 3 Clinical Report - Nurses [facility] Emergency Department [address] [place] [address] Phone #: ext- [phone] 04/19/2020 23:16 Patient: RAVI LAGOS Sex: F : 1990 Age: 30y Patient returned from radiology by wheelchair with communications field technician. --00:21 04/20/20 Mady West R.N. 00:22 04/20/2020 Lidocaine Patch Transdermal 1 patch applied. Allergies verified and confirmed 5 rights. Information reviewed with patient including reason for taking this medication. Verbalizes understanding. (To lower back). --00:22 04/20/20 Mady West R.N. Patient transported to radiology with communications field technician. (for additional imaging). --00:24 04/20/20 Mady West R.N.DISPOSITION / DISCHARGE Departure time: 00:57 04/20/2020. Condition at departure: improved and stable. No learning barriers present. Reviewed medication(s). Prescription(s) sent electronically to pharmacy. Patient and spouse verbalized understanding. Written instructions provided in [place]ic. The patient was discharged by the physician. She was discharged home and accompanied by spouse. She left ambulatory and via private vehicle. Spouse driving. --00:57 04/20/20 Mady West R.N. 00:56 04/20/20. BP: 109/72. MAP: 84. HR: 70. RR: 16. O2 saturation: 97%. Temp: 98.1 F. Pain level now: 10/09. --00:57 04/20/20 Mady West R.N.Locked/Released at 04/20/2020 00:58 by Mady West R.N. Name Value Range Interpretation Code Description Data Demetrice rce(s) Supporting Document(s) ID Date Data Source [id number] 04/19/2020 11:16:00 PM EDT [facility] 1 Clinical Report - Physicians/Mid Levels [facility] Emergency Department [address] [place] [address] Phone #: ext- [phone] 04/19/2020 23:16 Patient: RAVI LAGOS Sex: F : 1990 Age: 30y Time Seen: 23:37 04/19/2020; initial patient contact. Arrived- By private vehicle. Historian- patient. Disposition decision: 00:44 04/20/2020.HISTORY OF PRESENT ILLNESS Chief Complaint: BACK PAIN and CHRONIC BACK PAIN. Onset was today and it is still present. It was gradual in onset and has been constant. It is described as being severe and in the area of the left lower lumbar spine, lower lumbar spine and right lower lumbar spine. The quality is noted to be dull and "pain". No radiation. Modifying factors- worsened by walking, rotation to the right or left or bending over. No bladder dysfunction, bowel dysfunction, sensory loss or motor loss. 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 Patient notes the possibility of an injury. Mechanism of injury- fell: Occurred at home. Similar symptoms previously. Patient has had similar symptoms many times, chronically. Recent medical care: Not recently seen/assessed.REVIEW OF SYSTEMSNo fever, chills, eye irritation, difficulty with urination or urinary frequency. No hematuria, skin rash,headache, depression or sore throat. No cough, difficulty breathing, chest pain, abdominal pain ornausea. No vomiting, diarrhea, black stools or bloody stools. All other systems reviewed and arenegative.PAST HISTORYSee nurses notes. Problems: GERD. Back Pain. Degenerative Joint Disease. Scoliosis. Asthma. Arthritis. Chronic Back Pain. Additional Surgeries: Knee Surgery. 2 Clinical Report - Physicians/Mid Levels [facility] Emergency Department [address] [place] [address] Phone #: [phone]- [phone] 04/19/2020 23:16 Patient: RAVI LAGOS Sex: F : 1990 Age: 30y Salpingectomy. Tubal Ligation. Medications: Omeprazole Oral 40 mg, daily. Allergies: No Known Drug Allergy.SOCIAL HISTORYHeavy tobacco smoker- 1-2 packs per day. No alcohol use or drug use.ADDITIONAL NOTESThe nursing notes have been reviewed with agreement regarding the chief complaint, HPI, ROS, PMH andpatient medications and allergies.PHYSICAL EXAMVital Signs: 04/19/2020 23:21 BP: 123/83. MAP: 96. HR: 91. RR: 18. O2 saturation: 97%. Temp: 98 F.Pain level now: 9/10. Have been reviewed. Oxygen saturation normal.Appearance: Alert. Anxious. Appears to be in pain. Patient in moderate distress. Distress appears dueto pain.HEENT: Normal external inspection.Eyes: Pupils equal, round and reactive to light.ENT: Ears normal. Pharynx normal.Neck: Normal inspection. Neck nontender. Painless ROM.CVS: Heart sounds normal. Pulse s normal.Respiratory: No respiratory distress. Painless inspiration. Breath sounds normal.Abdomen: No visible injury. Soft and nontender. Bowel sounds normal. No organomegaly. No mass.Femoral pulses equal.Back: Normal inspection. Severe soft tissue tenderness in the right lower, left lower and lower centrallumbar area. Moderately limited ROM in the back- in the lumbar spine: decreased flexion, extension, rightlateral bending, left lateral bending and rotation to the right and left. No muscle spasm in the back,vertebral point tenderness or CVA tenderness.Skin: Skin warm and dry. Normal skin color. Normal skin turgor.Extremities: Extremities exhibit normal ROM. Extremities nontender.Neuro: Oriented X 3. Mood/affect normal. No motor deficit. No sensory deficit. Straight leg raising:negative on the right and negative on the left. Reflexes normal. Reflex exam: DTRs otherwise normal.LABS, X-RAYS, AND EKGLS- Spine X-rays: Soft tissues normal. No fracture or subluxation. No bony lesion. Views: AP andlateral. Technique: good. The X-rays were interpreted contemporaneously by me. Interpretation time:00:28 04/20/2020.Sacrum X-ray: No fracture, mass effect and bony lesion present. Soft tissues normal. Views: 2 viewsacrum series and lateral. Technique: good. The X-rays were interpreted contemporaneously by me.Interpretation time: 00:38 04/20/2020. 3 Clinical Report - Physicians/Mid Levels [facility] Emergency Department [address] [place] [address] Phone #: ext- [phone] 04/19/2020 23:16 Patient: RAVI LAGOS Sex: F : 1990 Age: 30yPROGRESS AND PROCEDURESCourse of Care: 00:44 04/20/20. LS spine and sacrum/coccyx x-rays are nml; pt doing better; will d/chome w instructions; pt agrees. Patient and spouse counseled in person regarding the patient's stable condition, test results, diagnosis and need for follow-up. Patient and spouse agrees with plan of care. Disposition: Condition: good and stable. Discharge decision based on the following: patient's condition is stable; patient's condition is improved; patient is ambulatory; patient is active; patient's pain is controlled; patient's exam is improved; no abnormal test results; improving condition on multiple repeat evaluations; social support is good; transportation is available; follow-up is available; clinical impression is consistent with outpatient treatment.CLINICAL IMPRESSION Acute lumbar strain. Chronic nontraumatic lumbar back pain.INSTRUCTIONS Apply ice for 30 minutes four times a day for two days followed by moist heat 30 minutes four times a day for three days. Don't apply ice directly to skin, don't use while asleep and don't use high setting on heating pad. Limit lifting until well. No strenuous activity until better. Return to work in four days. Warnings: GENERAL WARNINGS: Return or contact your physician immediately if your condition worsens or changes unexpectedly, if not improving as expected, or if other problems arise. SPECIFICALLY, return if you develop weakness of the foot or leg, numbness, tingling, pain or incontinence of feces (loss of bowel control) or urine (loss of bladder control). Your Current Medications: Your current home medications have been reviewed. CONTINUE TAKING THE FOLLOWING MEDICATIONS: Omeprazole Oral : 40 mg daily. Prescription Medications: ibuprofen 600 mg tablet Take 1 tablet four times a day as needed for pain for 7 days -- Dispense 28 tablet. Refills: 0. Substitution permitted. Pharmacy - [id number] - [id number] [facility] [address] ; [place], [place] [phone]. . Lidoderm 5 % topical patch Apply 1 patch once a day for 7 days -- Take off after 12 hrs. Dispense 7 patch. Refills: 0. Substitution permitted. 4 Clinical Report - Physicians/Mid Levels [facility] Emergency Department [address] [place] [address] Phone #: ext- [phone] 04/19/2020 23:16 Patient: [id number] Sex: F : 1990 Age: 30y [facility] #[id number] - [id number] ; [place], [place] [id number]. . cyclobenzaprine 5 mg tablet Take 1 tablet three times a day for 5 days -- Dispense 15 tablet. Refill s: 0. Substitution permitted. [facility]02 - [id number] ; [place], [place] [id number]. . Follow-up: Return to the emergency department as needed. Follow up with your healthcare provider in five days even if well. Call for an appointment. Reason for referral: evaluation and treatment. Summary of care provided to patient via paper. Understanding of the discharge instructions verbalized by patient. Expected course of injury, discharge instructions, activity level, diet, prescriptions x3, follow-up appointment and risks and benefits of treatment reviewed with patient and spouse and understanding verbalized. Agrees to plan of care.(Electronically signed by Eron Davila M.D. 04/20/2020 01:04) Name Value Range Interpretation Code Description Data Demetrice rce(s) Supporting Document(s) ID Date Data Source [id number] 04/09/2020 08:46:06 AM EDT [facility] Measurements & CalculationsHeight: 70 inches (5 ft. 10 in.) 177.80 cm Weight: 224 pounds 101.82 kg Body Mass Index (BMI): 32.26BMI Interpretation: ObeseBody Surface Area (BSA): 2.19Vital SignsTemperature: 98.3F 36.83C tympanic Pulse Rate: 102 beats/minuteRespiratory Rate: 16 respirations/minuteBlood Pressure: 110/62 left arm sitting automaticO2 Saturation: 98% room air sittingVital Signs performed by: Sarah Cleaning , April 09, 2020 8:58 AMInitial Intake Information From: patientRoom #: 15Infectious Disease / Travel ScreeningRecent travel for you or any close contacts? NoHave you had any close contact with anyone diagnosed with or under investigation for COVID-19 (coronavirus)? NoFever? NoRespiratory symptoms: cough, cold, congestion, shortness of breath, difficulty breathing? NoLoss of smell? NoLoss of taste? NoSmoking, Tobacco, Vaping or Smoke Exposure StatusSmoke Status: current every day smokerTobacco Use: YesDo you vape? NoMenstrual HistoryLast Menstrual Period (LMP): 03/25/2020LMP History: ApproximateAny possibility of ? NoHealthcare Hi storySince your last office visit...Have you been admitted to the hospital? NoHave you been to an emergency room (ER) or urgent care clinic? Yes - [facility] Emergency room (ER) or urgent care date reported today: 03/29/2020Have you seen another healthcare provider? NoHave you seen a dentist? NoIntake performed by: Sarah Cleaning , April 09, 2020 8:50 AMRate Your HealthIn general, would you say your health is? FairPain AssessmentAre you currently having any pain which... You would like your provider to address? No Affects your activity level? NoDepression Screening - PHQ-2Over the last two weeks, have you... Had little interest or pleasure in doing things? Nearly every day Been feeling down, depressed, or hopeless? Nearly every day PHQ-2 Score: 6Anxiety Screening - YO-2Over the last two weeks, have you been... Feeling nervous, anxious, or on edge? Nearly every day Unable to stop or control worrying? Nearly every day YO-2 Score: 6Generalized Anxiety Disorder 7- Item Screening (YO-7)Answer Guide:0 = Not at all1 = Several days2 = Over half the days3 = Nearly every dayOver the last 2 weeks, how often have you been bothered by the following problems?Feeling nervous, anxious, or on edge: 3Not being able to stop or control worryinWorrying too much about different things: 3Trouble relaxinBeing so restless that it's hard to sit still: 3Becoming easily annoyed or irritable: 3Feeling afraid as if something awful might happen: 0Answer Guide:0 = Not difficult at all1 = Somewhat difficult2 = Very difficult3 = Extremely difficultHow difficult have these made it for you to do your work, take care of things at home, or get along with other people? 2GAD-7 Screening Results YO-2 Score: 6GAD-7 Score: 18Functional Impairment: Very difficultRecommendation: Severe anxietyPHQ-9 1. Over the last 2 weeks, patient reports the following frequency of symptoms: a. Little interest or pleasure in doing things -Nearly every day b. Feeling down, depressed, or hopeless -Nearly every day c. Trouble falling asleep, staying asleep, or sleeping too much - Nearly every day d. Feeling tired or having little energy -Nearly every day e. Poor appetite or overeating -Nearly every day f. Feeling bad about yourself, feeling that you are a failure, or feeling that you have let yourself or your family down -Several days g. Trouble concentrating on things such as reading the newspaper or watching television -Not at all h. Moving or speaking so slowly that other people could have noticed. Or being so fidgety or restless that you have been moving around a lot more than usual - Nearly every day i. Thinking that you would be better off or that you want to hurt yourself in some way -Not at all2. If you checked off any problems, how difficult have these problems made it for you to do your work, take care of things at home, or get along with other people? -Very DifficultToday's PHQ-9 Results Score: 19 Severity: Moderately Severe Diagnosis Recommendation: Major Depression Functional Impairment: Very DifficultScreening, Brief Intervention, & Referral to Treatment (SBIRT)Pre-Screening Questions How many times have you have 4 or more drinks in a day? 0How many times have you used an illegal drug or used a prescription medication for a non-medical reason? 0Performed by: Sarah Cleaning , April 09, 2020 8:54 AMPatient History Medical History:[place] Teeth RemovalSurgical History:ScoliosisDegenerative disk diseasebulging disksfallopian tube removalFamily History:Diabetes (Maternal Grandmother, Maternal Grandfather)Heart disease (Maternal Grandmother, Maternal Grandfather)Hypertension (Maternal Grandmother, Maternal Grandfather)Maternal Grandmother of LeukemiaSocial/Personal History: Chief Complaintfollow-up visit- asthma, f/u urgent care URIHistory of Present Illness (HPI)Was seen 2 weeks ago at Urgent Care. Diagnosed at that time with Bronchitis and given an antibiotic. She filled it but did not take it. [facility] Has not otherwise been treatting the cough with the exception of occasional Albuterol inhaler. Continuing to have issues with anxiety and depression. No worse and no better with time. Still able to function fairly well with this.HPI performed by: Ministerio Fagan MD, April 09, 2020 9:06 AMTransitions of [facility] [place] InboundProvider Calculated and Reviewed all Clinical Protocols for patient today. Nurses Note Patient here today for follow up on anxiety/ depression. Was seen at urgent care for URI and did not take the medication prescribed. She is stll having symptoms. Physical ExamGeneral Appearance: well nourished, well hydrated, no acute distressRespiratory, Auscultation: clear to auscultation bilaterally; no rales, rhonchi, or wheezesRespiratory, Effort: no intercostal retractions or use of accessory musclesCardiovascular, Auscultation: S1, S2 audible; no murmur, rub, or gallop; RRRPeripheral Circulation: no clubbing, cyanosis, edema, or varicositiesGait & Station: normalSkin, Inspection: no rashes, lesions, or ulcerationsOrientation: oriented to time, place, and personMood & Affect: no depression, anxiety, or agitationJudgment & Insight: intactCare Management Plan Transitions of CareInboundRate Your HealthIn general, would you say your health is? FairAssessment & Plan Problems:Added: Acute bronchitis, unspecified (ICD10- J20.9) Assessment: Instructions: Sending in Augmentin to replace the prescription that was lost.OTC Robitussin or Mucinex. Continue Albuterol as needed.Recheck one month for further discussion of anxiety and depression, sooner if symptoms persist or worsen.Patient Instructions/Care Plan: Acute bronchitis- unspecified: Sending in Augmentin to replace the prescription that was lost.OTC Robitussin or Mucinex. Continue Albuterol as needed.Recheck one month for further discussion of anxiety and depression, sooner if symptoms persist or worsen. Plan developed in collaboration with patient and/or familyMedication Changes:New Prescription:AMOXICILLIN-POT CLAVULANATE 875-125 MG ORAL TABLET-One po bid for 7 days. Qty: 14[Tablet] Refills: 0 Method: ElectronicOrders:Adult - Ofc Vst, EST, Level III [CPT-74210] Review of Systems General: Denies dizziness, fatigue. Cardiovascular: Denies pa lpitations. Respiratory: Denies shortness of breath. Gastrointestinal: Denies diarrhea, constipation. Genitourinary: Denies pain with urination, urinary frequency, urinary urgency, incomplete emptying. Assessment & Plan Name Value Range Interpretation Code Description Data Demetrice rce(s) Supporting Document(s) Procedure Social History No Information Vital Signs ID Date Data Source UNK Name Value Range Interpretation Code Description Data Source(s) Diastolic blood pressure 76 mm[Hg] 76 mm[Hg] [facility] ([facility]) Body height 70 [in_i] 70 [in_i] [facility] ([facility]) Body mass index (BMI) [Ratio] 27 kg/m2 27 kg/ m2 [place] ([facility]) Systolic blood pressure 125 mm[Hg] 125 mm[Hg] A [facility] ([facility]) Body weight 3008 [oz_av] 3008 [oz_av] [facility] ([facility]) Diastolic blood pressure 61 mm[Hg] 61 mm[Hg] [facility] ([facility]) Body height 70 [in_i] 70 [in_i] [facility] ([facility]) Body mass index (BMI) [Ratio] 27.2 kg/m2 27.2 k g/m2 [facility] ([facility]) Systolic blood pressure 96 mm[Hg] 96 mm[Hg] A [facility] ([facility]) Body weight 3030 [oz_av] 3030 [oz_av] [facility] ([facility]) Diastolic blood pressure 61 mm[Hg] 61 mm[Hg] [facility] ([facility]) Body height 70 [in_i] 70 [in_i] [facility] ([facility]) Body mass index (BMI) [Ratio] 27.2 kg/m2 27.2 k g/m2 [facility] ([facility]) Systolic blood pressure 96 mm[Hg] 96 mm[Hg] A [facility] ([facility]) Body weight 3030 [oz_av] 3030 [oz_av] [facility] ([facility]) Body height 70 [in_i] 70 [in_i] [facility] ([facility]) Body height 70 [in_i] 70 [in_i] [facility] ([facility]) Body height 70 [in_i] 70 [in_i] [facility] ([facility]) Body height 70 [in_i] 70 [in_i] [facility] ([facility]) Diastolic blood pressure 52 mm[Hg] 52 mm[Hg] [facility] ([facility]) Body weight 3060 [oz_av] 3060 [oz_av] [facility] ([facility]) Body height 70 [in_i] 70 [in_i] [facility] ([facility]) Body mass index (BMI) [Ratio] 27.4 kg/m2 27.4 k g/m2 [facility] ([facility]) Systolic blood pressure 119 mm[Hg] 119 mm[Hg] [facility] Diastolic blood pressure 52 mm[Hg] 52 mm[Hg] [facility] ([facility]) Body height 70 [in_i] 70 [in_i] [facility] ([facility]) Systolic blood pressure 119 mm[Hg] 119 mm[Hg] A [facility] ([facility]) Body weight 3060 [oz_av] 3060 [oz_av] [facility] ([facility]) Body mass index (BMI) [Ratio] 27.4 kg/m2 27.4 k g/m2 [facility] ([facility]) Body height 70 [in_i] 70 [in_i] [facility] ([facility]) Body mass index (BMI) [Ratio] 27.4 kg/m2 27.4 k g/m2 [facility] ([facility]) Systolic blood pressure 119 mm[Hg] 119 mm[Hg] [facility] Diastolic blood pressure 52 mm[Hg] 52 mm[Hg] [facility] ([facility]) Body weight 3060 [oz_av] 3060 [oz_av] [facility] ([facility]) Systolic blood pressure 119 mm[Hg] 119 mm[Hg] A [facility] ([facility]) Diastolic blood pressure 52 mm[Hg] 52 mm[Hg] [facility] ([facility]) Body height 70 [in_i] 70 [in_i] [facility] ([facility]) Body mass index (BMI) [Ratio] 27.4 kg/m2 27.4 k g/m2 [facility] ([facility]) Body weight 3060 [oz_av] 3060 [oz_av] [facility] ([facility]) Diastolic blood pressure 52 mm[Hg] 52 mm[Hg] [facility] ([facility]) Body height 70 [in_i] 70 [in_i] [facility] ([facility]) Body mass index (BMI) [Ratio] 27.4 kg/m2 27.4 k g/m2 [facility] ([facility]) Systolic blood pressure 119 mm[Hg] 119 mm[Hg] A [facility] ([facility]) Body weight 3060 [oz_av] 3060 [oz_av] [facility] ([facility]) Diastolic blood pressure 61 mm[Hg] 61 mm[Hg] [facility] ([facility]) Body height 70 [in_i] 70 [in_i] [facility] ([facility]) Body mass index (BMI) [Ratio] 27.7 kg/m2 27.7 k g/m2 [facility] ([facility]) Systolic blood pressure 96 mm[Hg] 96 mm[Hg] [facility] Body weight 3094 [oz_av] 3094 [oz_av] [facility] ([facility]) Diastolic blood pressure 61 mm[Hg] 61 mm[Hg] [facility] ([facility]) Body height 70 [in_i] 70 [in_i] [facility] ([facility]) Body mass index (BMI) [Ratio] 27.7 kg/m2 27.7 k g/m2 [facility] ([facility]) Systolic blood pressure 96 mm[Hg] 96 mm[Hg] [facility] Body weight 3094 [oz_av] 3094 [oz_av] [facility] ([facility]) Diastolic blood pressure 61 mm[Hg] 61 mm[Hg] [facility] ([facility]) Body height 70 [in_i] 70 [in_i] [facility] ([facility]) Body weight 3094 [oz_av] 3094 [oz_av] [facility] ([facility]) Systolic blood pressure 96 mm[Hg] 96 mm[Hg] A [facility] ([facility]) Body mass index (BMI) [Ratio] 27.7 kg/m2 27.7 k g/m2 [facility] ([facility]) Body height 70 [in_i] 70 [in_i] [facility] ([facility]) Body mass index (BMI) [Ratio] 27.7 kg/m2 27.7 k g/m2 [facility] ([facility]) Systolic blood pressure 96 mm[Hg] 96 mm[Hg] [facility] Body weight 3094 [oz_av] 3094 [oz_av] [facility] ([facility]) Diastolic blood pressure 61 mm[Hg] 61 mm[Hg] [facility] ([facility]) Body mass index (BMI) [Ratio] 27.7 kg/m2 27.7 k g/m2 [facility] ([facility]) Systolic blood pressure 96 mm[Hg] 96 mm[Hg] [facility] Body weight 3094 [oz_av] 3094 [oz_av] [facility] ([facility]) Diastolic blood pressure 61 mm[Hg] 61 mm[Hg] [facility] ([facility]) Body height 70 [in_i] 70 [in_i] [facility] ([facility]) Diastolic blood pressure 61 mm[Hg] 61 mm[Hg] [facility] ([facility]) Body height 70 [in_i] 70 [in_i] [facility] ([facility]) Body mass index (BMI) [Ratio] 27.7 kg/m2 27.7 k g/m2 [facility] ([facility]) Systolic blood pressure 96 mm[Hg] 96 mm[Hg] A [facility] ([facility]) Body weight 3094 [oz_av] 3094 [oz_av] [facility] ([facility]) Diastolic blood pressure 74 mm[Hg] 74 mm[Hg] [facility] ([facility]) Body height 70 [in_i] 70 [in_i] [facility] ([facility]) Body mass index (BMI) [Ratio] 28 kg/m2 28 kg/ m2 [facility] ([facility]) Systolic blood pressure 119 mm[Hg] 119 mm[Hg] A [facility] ([facility]) Body weight 3124 [oz_av] 3124 [oz_av] [facility] ([facility]) Body mass index (BMI) [Ratio] 28 kg/m2 28 kg/ m2 [facility] ([facility]) Systolic blood pressure 119 mm[Hg] 119 mm[Hg] A [facility] ([facility]) Body weight 3124 [oz_av] 3124 [oz_av] [facility] ([facility]) Diastolic blood pressure 74 mm[Hg] 74 mm[Hg] [facility] ([facility]) Body height 70 [in_i] 70 [in_i] [facility] ([facility]) Body mass index (BMI) [Ratio] 28 kg/m2 28 kg/ m2 [facility] ([facility]) Diastolic blood pressure 74 mm[Hg] 74 mm[Hg] [facility] ([facility]) Body height 70 [in_i] 70 [in_i] [facility] ([facility]) Systolic blood pressure 119 mm[Hg] 119 mm[Hg] [facility] Body weight 3124 [oz_av] 3124 [oz_av] [facility] ([facility]) Diastolic blood pressure 74 mm[Hg] 74 mm[Hg] [facility] ([facility]) Body height 70 [in_i] 70 [in_i] [facility] ([facility]) Body mass index (BMI) [Ratio] 28 kg/m2 28 kg/ m2 [facility] ([facility]) Systolic blood pressure 119 mm[Hg] 119 mm[Hg] A [facility] ([facility]) Body weight 3124 [oz_av] 3124 [oz_av] [facility] ([facility]) Diastolic blood pressure 74 mm[Hg] 74 mm[Hg] [facility] ([facility]) Body height 70 [in_i] 70 [in_i] [facility] ([facility]) Body mass index (BMI) [Ratio] 28 kg/m2 28 kg/ m2 [facility] ([facility]) Systolic blood pressure 119 mm[Hg] 119 mm[Hg] [facility] Body weight 3124 [oz_av] 3124 [oz_av] [facility] ([facility]) Diastolic blood pressure 74 mm[Hg] 74 mm[Hg] [facility] ([facility]) Body height 70 [in_i] 70 [in_i] [facility] ([facility]) Body mass index (BMI) [Ratio] 28 kg/m2 28 kg/ m2 [facility] ([facility]) Systolic blood pressure 119 mm[Hg] 119 mm[Hg] A [facility] ([facility]) Body weight 3124 [oz_av] 3124 [oz_av] [facility] ([facility]) Systolic blood pressure 119 mm[Hg] 119 mm[Hg] [facility] Body weight 3124 [oz_av] 3124 [oz_av] [facility] ([facility]) Diastolic blood pressure 74 mm[Hg] 74 mm[Hg] [facility] ([facility]) Body height 70 [in_i] 70 [in_i] [facility] ([facility]) Body mass index (BMI) [Ratio] 28 kg/m2 28 kg/ m2 [facility] ([facility]) Diastolic blood pressure 66 mm[Hg] 66 mm[Hg] [facility] ([facility]) Body height 70 [in_i] 70 [in_i] [facility] ([facility]) Body mass index (BMI) [Ratio] 28.7 kg/m2 28.7 k g/m2 [facility] ([facility]) Systolic blood pressure 102 mm[Hg] 102 mm[Hg] [facility] Body weight 3204 [oz_av] 3204 [oz_av] [facility] ([facility]) Diastolic blood pressure 66 mm[Hg] 66 mm[Hg] [facility] ([facility]) Body height 70 [in_i] 70 [in_i] [facility] ([facility]) Body mass index (BMI) [Ratio] 28.7 kg/m2 28.7 k g/m2 [facility] ([facility]) Systolic blood pressure 102 mm[Hg] 102 mm[Hg] [facility] Body weight 3204 [oz_av] 3204 [oz_av] [facility] [facility] Diastolic blood pressure 66 mm[Hg] 66 mm[Hg] MAHNAZ ([facility]) Body height 70 [in_i] 70 [in_i] MAHNAZ ([facility]) Body mass index (BMI) [Ratio] 28.7 kg/m2 28.7 k g/m2 [facility]HNAZ ([facility]) Systolic blood pressure 102 mm[Hg] 102 mm[facility]Hg[facility] Body weight 3204 [oz_av] 3204 [oz_av] MAHNAZ ([facility]) Diastolic blood pressure 66 mm[Hg] 66 mm[Hg] MAHNAZ ([facility]) Body height 70 [in_i] 70 [in_i] MAHNAZ ([facility]) Body mass index (BMI) [Ratio] 28.7 kg/m2 28.7 k g/m2 [facility]HNAZ ([facility]) Systolic blood pressure 102 mm[Hg] 102 mm[Hg] [facility] Body weight 3204 [oz_av] 3204 [oz_av] MAHNAZ ([facility]) Diastolic blood pressure 66 mm[Hg] 66 mm[Hg] MAHNAZ ([facility]) Body height 70 [in_i] 70 [in_i] MAHNAZ ([facility]) Body mass index (BMI) [Ratio] 28.7 kg/m2 28.7 k g/m2 MAHNAZ ([facility]) Systolic blood pressure 102 mm[Hg] 102 mm[Hg] [facility] Body weight 3204 [oz_av] 3204 [oz_av] MAHNAZ ([facility]) Diastolic blood pressure 66 mm[Hg] 66 mm[Hg] MAHNAZ ([facility]) Body height 70 [in_i] 70 [in_i] MAHNAZ ([facility]) Body mass index (BMI) [Ratio] 28.7 kg/m2 28.7 k g/m2 MAHNAZ ([facility]) Systolic blood pressure 102 mm[Hg] 102 mm[Hg] [facility] Body weight 3204 [oz_av] 3204 [oz_av] MAHNAZ ([facility]) Body height 70 [in_i] 70 [in_i] MAHNAZ ([facility]) Body mass index (BMI) [Ratio] 28.7 kg/m2 28.7 k g/m2 MAHNAZ ([facility]) Systolic blood pressure 102 mm[Hg] 102 mm[Hg] A THENA ([facility]) Body weight 3204 [oz_av] 3204 [oz_av] MAHNAZ ([facility]) Diastolic blood pressure 66 mm[Hg] 66 mm[Hg] MAHNAZ ([facility]) Diastolic blood pressure 66 mm[Hg] 66 mm[Hg] [facility] ([facility]) Body height 70 [in_i] 70 [in_i] MAHNAZ ([facility]) Body mass index (BMI) [Ratio] 28.7 kg/m2 28.7 k g/m2 [facility]Z ([facility]) Systolic blood pressure 102 mm[Hg] 102 mm[Hg] A THENA ([facility]) Body weight 3204 [oz_av] 3204 [oz_av] MAHNAZ ([facility]) Diastolic blood pressure 70 mm[Hg] 70 mm[Hg] [facility]Z ([facility]) Body height 70 [in_i] 70 [in_i] [facility]Z ([facility]) Body mass index (BMI) [Ratio] 29.9 kg/m2 29.9 k g/m2 [facility] ([facility]) Systolic blood pressure 111 mm[Hg] 111 mm[Hg] [facility] Body weight 3336 [oz_av] 3336 [oz_av] MAHNAZ ([facility]) Body height 70 [in_i] 70 [in_i] MAHNAZ ([facility]) Body mass index (BMI) [Ratio] 29.9 kg/m2 29.9 k g/m2 [facility]Z ([facility]) Body weight 3336 [oz_av] 3336 [oz_av] MAHNAZ ([facility]) Systolic blood pressure 111 mm[Hg] 111 mm[Hg] A THENA ([facility]) Diastolic blood pressure 70 mm[Hg] 70 mm[Hg] MAHNAZ ([facility]) Body weight 3336 [oz_av] 3336 [oz_av] MAHNAZ ([facility]) Diastolic blood pressure 70 mm[Hg] 70 mm[Hg] [facility]Z ([facility]) Body height 70 [in_i] 70 [in_i] MAHNAZ ([facility]) Body mass index (BMI) [Ratio] 29.9 kg/m2 29.9 k g/m2 MAHNAZ ([facility]) Systolic blood pressure 111 mm[Hg] 111 mm[Hg] A THENA ([facility]) Diastolic blood pressure 70 mm[Hg] 70 mm[Hg] MAHNAZ ([facility]) Body height 70 [in_i] 70 [in_i] [facility]HNAZ ([facility]) Body mass index (BMI) [Ratio] 29.9 kg/m2 29.9 k g/m2 MAHNAZ ([facility]) Systolic blood pressure 111 mm[Hg] 111 mm[Hg] [facility] ([facility]) Body weight 3336 [oz_av] 3336 [oz_av] MAHNAZ ([facility]) Systolic blood pressure 111 mm[Hg] 111 mm[Hg] [facility] Body weight 3336 [oz_av] 3336 [oz_av] MAHNAZ ([facility]) Diastolic blood pressure 70 mm[Hg] 70 mm[Hg] [facility]Z ([facility]) Body height 70 [in_i] 70 [in_i] [facility]Z ([facility]) Body mass index (BMI) [Ratio] 29.9 kg/m2 29.9 k g/m2 MAHNAZ ([facility]) Diastolic blood pressure 70 mm[Hg] 70 mm[Hg] MAHNAZ ([facility]) Body height 70 [in_i] 70 [in_i] MAHNAZ ([facility]) Body mass index (BMI) [Ratio] 29.9 kg/m2 29.9 k g/m2 [facility]Z ([facility]) Systolic blood pressure 111 mm[Hg] 111 mm[Hg] [facility] ([facility]) Body weight 3336 [oz_av] 3336 [oz_av] MAHNAZ ([facility]) Diastolic blood pressure 70 mm[Hg] 70 mm[Hg] MAHNAZ ([facility]) Body height 70 [in_i] 70 [in_i] MAHNAZ ([facility]) Body mass index (BMI) [Ratio] 29.9 kg/m2 29.9 k g/m2 MAHNAZ ([facility]) Systolic blood pressure 111 mm[Hg] 111 mm[Hg] [facility] ([facility]) Body weight 3336 [oz_av] 3336 [oz_av] MAHNAZ ([facility]) Diastolic blood pressure 70 mm[Hg] 70 mm[Hg] MAHNAZ ([facility]) Body height 70 [in_i] 70 [in_i] [facility]HNAZ ([facility]) Body mass index (BMI) [Ratio] 29.9 kg/m2 29.9 k g/m2 [facility]Z ([facility]) Systolic blood pressure 111 mm[Hg] 111 mm[Hg] [facility] Body weight 3336 [oz_av] 3336 [oz_av] MAHNAZ ([facility]) Diastolic blood pressure 64 mm[Hg] 64 mm[Hg] [facility]Z ([facility]) Body height 70 [in_i] 70 [in_i] [facility]Z ([facility]) Body mass index (BMI) [Ratio] 31 kg/m2 31 kg/ m2 MAHNAZ ([facility]) Systolic blood pressure 102 mm[Hg] 102 mm[Hg] [facility] ([facility]) Body weight 3456 [oz_av] 3456 [oz_av] MAHNAZ ([facility]) Diastolic blood pressure 64 mm[Hg] 64 mm[Hg] MAHNAZ ([facility]) Body height 70 [in_i] 70 [in_i] MAHNAZ ([facility]) Body mass index (BMI) [Ratio] 31 kg/m2 31 kg/ m2 [facility]Z ([facility]) Systolic blood pressure 102 mm[Hg] 102 mm[Hg] [facility] Body weight 3456 [oz_av] 3456 [oz_av] MAHNAZ ([facility]) Diastolic blood pressure 64 mm[Hg] 64 mm[Hg] MAHNAZ ([facility]) Body height 70 [in_i] 70 [in_i] MAHNAZ ([facility]) Body mass index (BMI) [Ratio] 31 kg/m2 31 kg/ m2 MAH[facility]Z ([facility]) Systolic blood pressure 102 mm[Hg] 102 mm[Hg] [facility] Body weight 3456 [oz_av] 3456 [oz_av] MAHNAZ ([facility]) Diastolic blood pressure 64 mm[Hg] 64 mm[Hg] MAHNAZ ([facility]) Body height 70 [in_i] 70 [in_i] MAHNAZ ([facility]) Body mass index (BMI) [Ratio] 31 kg/m2 31 kg/ m2 MAHNAZ ([facility]) Systolic blood pressure 102 mm[Hg] 102 mm[Hg] [facility] Body weight 3456 [oz_av] 3456 [oz_av] MAHNAZ ([facility]) Systolic blood pressure 102 mm[Hg] 102 mm[Hg] A THENA ([facility]) Diastolic blood pressure 64 mm[Hg] 64 mm[Hg] MAHNAZ ([facility]) Body height 70 [in_i] 70 [in_i] MAHNAZ ([facility]) Body mass index (BMI) [Ratio] 31 kg/m2 31 kg/ m2 MAHNAZ ([facility]) Body weight 3456 [oz_av] 3456 [oz_av] MAHNAZ ([facility]) Diastolic blood pressure 64 mm[Hg] 64 mm[Hg] MAHNAZ ([facility]) Body height 70 [in_i] 70 [in_i] MAHNAZ ([facility]) Body mass index (BMI) [Ratio] 31 kg/m2 31 kg/ m2 MAHNAZ ([facility]) Systolic blood pressure 102 mm[Hg] 102 mm[Hg] A THENA ([facility]) Body weight 3456 [oz_av] 3456 [oz_av] MAHNAZ ([facility]) Diastolic blood pressure 64 mm[Hg] 64 mm[Hg] MAHNAZ ([facility]) Body height 70 [in_i] 70 [in_i] MAHNAZ ([facility]) Body mass index (BMI) [Ratio] 31 kg/m2 31 kg/ m2 [facility]Z ([facility]) Systolic blood pressure 102 mm[Hg] 102 mm[Hg] A THENA ([facility]) Body weight 3456 [oz_av] 3456 [oz_av] MAHNAZ ([facility]) Body height 70 [in_i] 70 [in_i] MAHNAZ ([facility]) Diastolic blood pressure 64 mm[Hg] 64 mm[Hg] MAHNAZ ([facility]) Body mass index (BMI) [Ratio] 31 kg/m2 31 kg/ m2 MAHNAZ ([facility]) Systolic blood pressure 102 mm[Hg] 102 mm[Hg] [facility] Body weight 3456 [oz_av] 3456 [oz_av] MAHNAZ ([facility]) Diastolic blood pressure 64 mm[Hg] 64 mm[Hg] MAHNAZ ([facility]) Body height 70 [in_i] 70 [in_i] MAHNAZ ([facility]) Body mass index (BMI) [Ratio] 31 kg/m2 31 kg/ m2 [facility]HNAZ ([facility]) Systolic blood pressure 102 mm[Hg] 102 mm[Hg] [facility] Body weight 3456 [oz_av] 3456 [oz_av] MAHNAZ ([facility]) Diastolic blood pressure 64 mm[Hg] 64 mm[Hg] MAHNAZ ([facility]) Body height 70 [in_i] 70 [in_i] MAHNAZ ([facility]) Body mass index (BMI) [Ratio] 31 kg/m2 31 kg/ m2 MAHNAZ ([facility]) Systolic blood pressure 102 mm[Hg] 102 mm[Hg] [facility] Body weight 3456 [oz_av] 3456 [oz_av] MAHNAZ ([facility]) Diastolic blood pressure 64 mm[Hg] 64 mm[Hg] MAHNAZ ([facility]) Body height 70 [in_i] 70 [in_i] MAHNAZ ([facility]) Body mass index (BMI) [Ratio] 31 kg/m2 31 kg/ m2 MAHNAZ ([facility]) Systolic blood pressure 102 mm[Hg] 102 mm[Hg] [facility] Body weight 3456 [oz_av] 3456 [oz_av] MAHNAZ ([facility]) Diastolic blood pressure 67 mm[Hg] 67 mm[Hg] MAHNAZ ([facility]) Body height 70 [in_i] 70 [in_i] MAHNAZ ([facility]) Body mass index (BMI) [Ratio] 31.7 kg/m2 31.7 k g/m2 MAHNAZ ([facility]) Systolic blood pressure 100 mm[Hg] 100 mm[Hg] A THENA ([facility]) Body weight 3529.6 [oz_av] 3529.6 [oz_av] ATHEN A ([facility]) Diastolic blood pressure 67 mm[Hg] 67 mm[Hg] MAHNAZ ([facility]) Body height 70 [in_i] 70 [in_i] MAHNAZ ([facility]) Body mass index (BMI) [Ratio] 31.7 kg/m2 31.7 k g/m2 MAHNAZ ([facility]) Systolic blood pressure 100 mm[Hg] 100 mm[Hg] A THENA ([facility]) Body weight 3529.6 [oz_av] 3529.6 [oz_av] ATHEN A ([facility]) Diastolic blood pressure 67 mm[Hg] 67 mm[Hg] MAHNAZ ([facility]) Body height 70 [in_i] 70 [in_i] MAHNAZ ([facility]) Body mass index (BMI) [Ratio] 31.7 kg/m2 31.7 k g/m2 MAH[facility]Z ([facility]) Systolic blood pressure 100 mm[Hg] 100 mm[Hg] A THENA ([facility]) Body weight 3529.6 [oz_av] 3529.6 [oz_av] ATHEN A ([facility]) Diastolic blood pressure 67 mm[Hg] 67 mm[Hg] MAHNAZ ([facility]) Body height 70 [in_i] 70 [in_i] MAHNAZ ([facility]) Body mass index (BMI) [Ratio] 31.7 kg/m2 31.7 k g/m2 [facility]Z ([facility]) Systolic blood pressure 100 mm[Hg] 100 mm[Hg] A THENA ([facility]) Body weight 3529.6 [oz_av] 3529.6 [oz_av] ATHEN A ([facility]) Body mass index (BMI) [Ratio] 31.7 kg/m2 31.7 k g/m2 [facility]HNAZ ([facility]) Diastolic blood pressure 67 mm[Hg] 67 mm[Hg] MAHNAZ ([facility]) Systolic blood pressure 100 mm[Hg] 100 mm[Hg] A THENA ([facility]) Body weight 3529.6 [oz_av] 3529.6 [oz_av] ATHEN A ([facility]) Body height 70 [in_i] 70 [in_i] MAHNAZ ([facility]) Diastolic blood pressure 67 mm[Hg] 67 mm[Hg] [facility]HNAZ ([facility]) Body height 70 [in_i] 70 [in_i] [facility]HNAZ ([facility]) Body mass index (BMI) [Ratio] 31.7 kg/m2 31.7 k g/m2 [facility]Z ([facility]) Systolic blood pressure 100 mm[Hg] 100 mm[Hg] [facility] Body weight 3529.6 [oz_av] 3529.6 [oz_av] ATHEN A ([facility]) Diastolic blood pressure 67 mm[Hg] 67 mm[Hg] MAHNAZ ([facility]) Body height 70 [in_i] 70 [in_i] MAHNAZ ([facility]) Body mass index (BMI) [Ratio] 31.7 kg/m2 31.7 k g/m2 [facility]Z ([facility]) Systolic blood pressure 100 mm[Hg] 100 mm[Hg] A THENA ([facility]) Body weight 3529.6 [oz_av] 3529.6 [oz_av] ATHEN A ([facility]) Body weight 3529.6 [oz_av] 3529.6 [oz_av] ATHEN A ([facility]) Diastolic blood pressure 67 mm[Hg] 67 mm[Hg] MAHNAZ ([facility]) Body height 70 [in_i] 70 [in_i] MAHNAZ ([facility]) Body mass index (BMI) [Ratio] 31.7 kg/m2 31.7 k g/m2 [facility]Z ([facility]) Systolic blood pressure 100 mm[Hg] 100 mm[Hg] [facility] Diastolic blood pressure 67 mm[Hg] 67 mm[Hg] MAHNAZ ([facility]) Body height 70 [in_i] 70 [in_i] MAHNAZ ([facility]) Body mass index (BMI) [Ratio] 31.7 kg/m2 31.7 k g/m2 [facility]Z ([facility]) Systolic blood pressure 100 mm[Hg] 100 mm[Hg] [facility] Body weight 3529.6 [oz_av] 3529.6 [oz_av] ATHEN A ([facility]) Diastolic blood pressure 67 mm[Hg] 67 mm[Hg] MAHNAZ ([facility]) Body height 70 [in_i] 70 [in_i] MAHNAZ ([facility]) Body mass index (BMI) [Ratio] 31.7 kg/m2 31.7 k g/m2 [facility]Z ([facility]) Systolic blood pressure 100 mm[Hg] 100 mm[Hg] [facility] Body weight 3529.6 [oz_av] 3529.6 [oz_av] ATHEN A ([facility]) Diastolic blood pressure 67 mm[Hg] 67 mm[Hg] [facility]HNAZ ([facility]) Body height 70 [in_i] 70 [in_i] MAHNAZ ([facility]) Body mass index (BMI) [Ratio] 31.7 kg/m2 31.7 k g/m2 [facility]Z ([facility]) Systolic blood pressure 100 mm[Hg] 100 mm[Hg] [facility] Body weight 3529.6 [oz_av] 3529.6 [oz_av] ATHEN A ([facility]) Systolic blood pressure 100 mm[Hg] 100 mm[Hg] [facility] Body weight 3529.6 [oz_av] 3529.6 [oz_av] ATHEN A ([facility]) Diastolic blood pressure 67 mm[Hg] 67 mm[Hg] MAHNAZ ([facility]) Body height 70 [in_i] 70 [in_i] MAHNAZ ([facility]) Body mass index (BMI) [Ratio] 31.7 kg/m2 31.7 k g/m2 [facility]Z ([facility]) Diastolic blood pressure 76 mm[Hg] 76 mm[Hg] [facility]Z ([facility]) Body height 70 [in_i] 70 [in_i] MAHNAZ ([facility]) Body mass index (BMI) [Ratio] 31.7 kg/m2 31.7 k g/m2 [facility]Z ([facility]) Systolic blood pressure 115 mm[Hg] 115 mm[Hg] [facility] Body weight 3536 [oz_av] 3536 [oz_av] MAHNAZ ([facility]) Diastolic blood pressure 76 mm[Hg] 76 mm[Hg] MAHNAZ ([facility]) Body height 70 [in_i] 70 [in_i] MAHNAZ ([facility]) Body mass index (BMI) [Ratio] 31.7 kg/m2 31.7 k g/m2 [facility]Z ([facility]) Systolic blood pressure 115 mm[Hg] 115 mm[Hg] [facility] ([facility]) Body weight 3536 [oz_av] 3536 [oz_av] MAHNAZ ([facility]) Body mass index (BMI) [Ratio] 31.7 kg/m2 31.7 k g/m2 [facility]Z ([facility]) Diastolic blood pressure 76 mm[Hg] 76 mm[Hg] [facility]NAZ ([facility]) Body height 70 [in_i] 70 [in_i] MAHNAZ ([facility]) Body mass index (BMI) [Ratio] 31.7 kg/m2 31.7 k g/m2 [facility]Z ([facility]) Systolic blood pressure 115 mm[Hg] 115 mm[Hg] [facility] Body weight 3536 [oz_av] 3536 [oz_av] MAHNAZ ([facility]) Diastolic blood pressure 76 mm[Hg] 76 mm[Hg] MAHNAZ ([facility]) Body height 70 [in_i] 70 [in_i] [facility]HNAZ ([facility]) Systolic blood pressure 115 mm[Hg] 115 mm[Hg] [facility] Body weight 3536 [oz_av] 3536 [oz_av] MAHNAZ ([facility]) Diastolic blood pressure 76 mm[Hg] 76 mm[Hg] [facility]HNAZ ([facility]) Body height 70 [in_i] 70 [in_i] [facility]HNAZ ([facility]) Body mass index (BMI) [Ratio] 31.7 kg/m2 31.7 k g/m2 [facility]Z ([facility]) Systolic blood pressure 115 mm[Hg] 115 mm[Hg] [facility] Body weight 3536 [oz_av] 3536 [oz_av] MAHNAZ ([facility]) Diastolic blood pressure 76 mm[Hg] 76 mm[Hg] [facility]Z ([facility]) Body height 70 [in_i] 70 [in_i] [facility]HNAZ ([facility]) Body mass index (BMI) [Ratio] 31.7 kg/m2 31.7 k g/m2 [facility] ([facility]) Systolic blood pressure 115 mm[Hg] 115 mm[Hg] [facility] ([facility]) Body weight 3536 [oz_av] 3536 [oz_av] MAHNAZ ([facility]) Body mass index (BMI) [Ratio] 31.7 kg/m2 31.7 k g/m2 [facility]Z ([facility]) Systolic blood pressure 115 mm[Hg] 115 mm[Hg] [facility] Body weight 3536 [oz_av] 3536 [oz_av] MAHNAZ ([facility]) Diastolic blood pressure 76 mm[Hg] 76 mm[Hg] [facility]Z ([facility]) Body height 70 [in_i] 70 [in_i] [facility]Z ([facility]) Diastolic blood pressure 76 mm[Hg] 76 mm[Hg] [facility] ([facility]) Body height 70 [in_i] 70 [in_i] [facility]HNAZ ([facility]) Body mass index (BMI) [Ratio] 31.7 kg/m2 31.7 k g/m2 [facility]Z ([facility]) Systolic blood pressure 115 mm[Hg] 115 mm[Hg] [facility] Body weight 3536 [oz_av] 3536 [oz_av] MAHNAZ ([facility]) Diastolic blood pressure 76 mm[Hg] 76 mm[Hg] MAHNAZ ([facility]) Body height 70 [in_i] 70 [in_i] MAHNAZ ([facility]) Body mass index (BMI) [Ratio] 31.7 kg/m2 31.7 k g/m2 [facility]Z ([facility]) Systolic blood pressure 115 mm[Hg] 115 mm[Hg] [facility] Body weight 3536 [oz_av] 3536 [oz_av] MAHNAZ ([facility]) Diastolic blood pressure 76 mm[Hg] 76 mm[Hg] [facility]HNAZ ([facility]) Body height 70 [in_i] 70 [in_i] [facility]HNAZ ([facility]) Body mass index (BMI) [Ratio] 31.7 kg/m2 31.7 k g/m2 [facility]HNAZ ([facility]) Systolic blood pressure 115 mm[Hg] 115 mm[Hg] [facility] ([facility]) Body weight 3536 [oz_av] 3536 [oz_av] MAHNAZ ([facility]) Diastolic blood pressure 76 mm[Hg] 76 mm[Hg] [facility]Z ([facility]) Body height 70 [in_i] 70 [in_i] [facility]HNAZ ([facility]) Body mass index (BMI) [Ratio] 31.7 kg/m2 31.7 k g/m2 [facility]Z ([facility]) Systolic blood pressure 115 mm[Hg] 115 mm[Hg] A [facility] ([facility]) Body weight 3536 [oz_av] 3536 [oz_av] MAHNAZ ([facility]) Diastolic blood pressure 76 mm[Hg] 76 mm[Hg] [facility]HNAZ ([facility]) Body height 70 [in_i] 70 [in_i] [facility]HNAZ ([facility]) Body mass index (BMI) [Ratio] 31.7 kg/m2 31.7 k g/m2 [facility]Z ([facility]) Systolic blood pressure 115 mm[Hg] 115 mm[Hg] [facility] Body weight 3536 [oz_av] 3536 [oz_av] MAHNAZ ([facility]) Body height 70 [in_i] 70 [in_i] [facility]HNAZ ([facility]) Body mass index (BMI) [Ratio] 31.7 kg/m2 31.7 k g/m2 [facility]Z ([facility]) Systolic blood pressure 115 mm[Hg] 115 mm[Hg] [facility] Body weight 3536 [oz_av] 3536 [oz_av] MAHNAZ ([facility]) Diastolic blood pressure 76 mm[Hg] 76 mm[Hg] [facility]Z ([facility]) Diastolic blood pressure 76 mm[Hg] 76 mm[Hg] [facility] ([facility]) Body height 70 [in_i] 70 [in_i] [facility]Z ([facility]) Body mass index (BMI) [Ratio] 31.7 kg/m2 31.7 k g/m2 [facility] ([facility]) Systolic blood pressure 115 mm[Hg] 115 mm[Hg] [facility] ([facility]) Body weight 3536 [oz_av] 3536 [oz_av] MAHNAZ ([facility]) Diastolic blood pressure 73 mm[Hg] 73 mm[Hg] [facility]Z ([facility]) Body height 70 [in_i] 70 [in_i] MA[facility]Z ([facility]) Body mass index (BMI) [Ratio] 32.2 kg/m2 32.2 k g/m2 [facility]Z ([facility]) Systolic blood pressure 113 mm[Hg] 113 mm[facility]Hg] [facility] Body weight 3590 [oz_av] 3590 [oz_av] MAHNAZ ([facility]) Diastolic blood pressure 75 mm[Hg] 75 mm[Hg] MAHNAZ ([facility]) Diastolic blood pressure 73 mm[Hg] 73 mm[Hg] MAHNAZ ([facility]) Body height 70 [in_i] 70 [in_i] MAHNAZ ([facility]) Body mass index (BMI) [Ratio] 32.2 kg/m2 32.2 k g/m2 MAHNAZ ([facility]) Systolic blood pressure 113 mm[Hg] 113 mm[Hg] [facility] Body weight 3590 [oz_av] 3590 [oz_av] MAHNAZ ([facility]) Body height 70 [in_i] 70 [in_i] MAHNAZ ([facility]) Diastolic blood pressure 73 mm[Hg] 73 mm[Hg] MAHNAZ ([facility]) Body height 70 [in_i] 70 [in_i] MAHNAZ ([facility]) Body mass index (BMI) [Ratio] 33 kg/m2 33 kg/ m2 MAHNAZ ([facility]) Body mass index (BMI) [Ratio] 32.2 kg/m2 32.2 k g/m2 MAHNAZ ([facility]) Systolic blood pressure 113 mm[Hg] 113 mm[Hg] A THENA ([facility]) Systolic blood pressure 120 mm[Hg] 120 mm[Hg] A THENA ([facility]) Body weight 230 [lb_av] 230 [lb_av] MAHNAZ ([facility]) Body weight 3590 [oz_av] 3590 [oz_av] MAHNAZ ([facility]) Diastolic blood pressure 73 mm[Hg] 73 mm[Hg] MAHNAZ ([facility]) Body height 70 [in_i] 70 [in_i] MAHNAZ ([facility]) Body mass index (BMI) [Ratio] 32.2 kg/m2 32.2 k g/m2 MAHNAZ ([facility]) Systolic blood pressure 113 mm[Hg] 113 mm[Hg] A THENA ([facility]) Body weight 3590 [oz_av] 3590 [oz_av] MAHNAZ ([facility]) Diastolic blood pressure 73 mm[Hg] 73 mm[Hg] MAHNAZ ([facility]) Body height 70 [in_i] 70 [in_i] MAHNAZ ([facility]) Body mass index (BMI) [Ratio] 32.2 kg/m2 32.2 k g/m2 MAHNAZ ([facility]) Systolic blood pressure 113 mm[Hg] 113 mm[Hg] A THENA ([facility]) Body weight 3590 [oz_av] 3590 [oz_av] MAHNAZ ([facility]) Diastolic blood pressure 73 mm[Hg] 73 mm[Hg] MAHNAZ ([facility]) Body height 70 [in_i] 70 [in_i] MAHNAZ ([facility]) Body mass index (BMI) [Ratio] 32.2 kg/m2 32.2 k g/m2 MAHNAZ ([facility]) Systolic blood pressure 113 mm[Hg] 113 mm[Hg] [facility] Body weight 3590 [oz_av] 3590 [oz_av] MAHNAZ ([facility]) Body mass index (BMI) [Ratio] 32.2 kg/m2 32.2 k g/m2 MAHNAZ ([facility]) Systolic blood pressure 113 mm[Hg] 113 mm[Hg] [facility] Body weight 3590 [oz_av] 3590 [oz_av] MAHNAZ ([facility]) Body height 70 [in_i] 70 [in_i] MAHNAZ ([facility]) Diastolic blood pressure 73 mm[Hg] 73 mm[Hg] MAHNAZ ([facility]) Diastolic blood pressure 73 mm[Hg] 73 mm[Hg] MAHNAZ ([facility]) Body height 70 [in_i] 70 [in_i] MAHNAZ ([facility]) Body mass index (BMI) [Ratio] 32.2 kg/m2 32.2 k g/m2 MAHNAZ ([facility]) Systolic blood pressure 113 mm[Hg] 113 mm[Hg] [facility] Body weight 3590 [oz_av] 3590 [oz_av] MAHNAZ ([facility]) Systolic blood pressure 113 mm[Hg] 113 mm[Hg] A THENA ([facility]) Body weight 3590 [oz_av] 3590 [oz_av] MAHNAZ ([facility]) Diastolic blood pressure 73 mm[Hg] 73 mm[Hg] MAHNAZ ([facility]) Body height 70 [in_i] 70 [in_i] MAHNAZ ([facility]) Body mass index (BMI) [Ratio] 32.2 kg/m2 32.2 k g/m2 MAHNAZ ([facility]) Diastolic blood pressure 73 mm[Hg] 73 mm[Hg] MAHNAZ ([facility]) Body height 70 [in_i] 70 [in_i] MAHNAZ ([facility]) Body mass index (BMI) [Ratio] 32.2 kg/m2 32.2 k g/m2 MAHNAZ ([facility]) Systolic blood pressure 113 mm[Hg] 113 mm[Hg] A THENA ([facility]) Body weight 3590 [oz_av] 3590 [oz_av] MAHNAZ ([facility]) Diastolic blood pressure 73 mm[Hg] 73 mm[Hg] MAHNAZ ([facility]) Body height 70 [in_i] 70 [in_i] MAHNAZ ([facility]) Body mass index (BMI) [Ratio] 32.2 kg/m2 32.2 k g/m2 MAHNAZ ([facility]) Systolic blood pressure 113 mm[Hg] 113 mm[Hg] [facility] Body weight 3590 [oz_av] 3590 [oz_av] MAHNAZ ([facility]) Body mass index (BMI) [Ratio] 32.2 kg/m2 32.2 k g/m2 MAHNAZ ([facility]) Systolic blood pressure 113 mm[Hg] 113 mm[Hg] A THENA ([facility]) Body weight 3590 [oz_av] 3590 [oz_av] MAHNAZ ([facility]) Diastolic blood pressure 73 mm[Hg] 73 mm[Hg] AMHNAZ ([facility]) Body height 70 [in_i] 70 [in_i] MAHNAZ ([facility]) Body weight 3590 [oz_av] 3590 [oz_av] MAHNAZ ([facility]) Diastolic blood pressure 73 mm[Hg] 73 mm[Hg] MAHNAZ ([facility]) Body height 70 [in_i] 70 [in_i] MAHNAZ ([facility]) Body mass index (BMI) [Ratio] 32.2 kg/m2 32.2 k g/m2 MAHNAZ ([facility]) Systolic blood pressure 113 mm[Hg] 113 mm[Hg] A THENA ([facility]) Diastolic blood pressure 73 mm[Hg] 73 mm[Hg] MAHNAZ ([facility]) Body height 70 [in_i] 70 [in_i] MAHNAZ ([facility]) Body mass index (BMI) [Ratio] 32.2 kg/m2 32.2 k g/m2 MAHNAZ ([facility]) Systolic blood pressure 113 mm[Hg] 113 mm[Hg] [facility] Body weight 3590 [oz_av] 3590 [oz_av] MAHNAZ ([facility]) Diastolic blood pressure 73 mm[Hg] 73 mm[Hg] MAHNAZ ([facility]) Body height 70 [in_i] 70 [in_i] MAHNAZ ([facility]) Body mass index (BMI) [Ratio] 32.2 kg/m2 32.2 k g/m2 MAHNAZ ([facility]) Systolic blood pressure 113 mm[Hg] 113 mm[Hg] A [facility] ([facility]) Body weight 3590 [oz_av] 3590 [oz_av] MAHNAZ ([facility]) Body height 70 [in_i] 70 [in_i] MAHNAZ ([facility]) Diastolic blood pressure 62 mm[Hg] 62 mm[Hg] MAHNAZ ([facility]) Body mass index (BMI) [Ratio] 32.26 kg/m2 32.26 kg/m2 MAHNAZ ([facility]) Systolic blood pressure 110 mm[Hg] 110 mm[Hg] [facility] Body weight 3584 [oz_av] 3584 [oz_av] MAHNAZ ([facility]) Diastolic blood pressure 62 mm[Hg] 62 mm[Hg] MHANAZ ([facility]) Body height 70 [in_i] 70 [in_i] MAHNAZ ([facility]) Body mass index (BMI) [Ratio] 32.26 kg/m2 32.26 kg/m2 MAHNAZ ([facility]) Systolic blood pressure 110 mm[Hg] 110 mm[Hg] [facility] Body weight 3584 [oz_av] 3584 [oz_av] MAHNAZ ([facility]) Body weight 3584 [oz_av] 3584 [oz_av] MAHNAZ ([facility]) Systolic blood pressure 110 mm[Hg] 110 mm[Hg] [facility] Diastolic blood pressure 62 mm[Hg] 62 mm[Hg] MAHNAZ ([facility]) Body height 70 [in_i] 70 [in_i] MAHNAZ ([facility]) Body mass index (BMI) [Ratio] 32.26 kg/m2 32.26 kg/m2 MAHNAZ ([facility]) Diastolic blood pressure 62 mm[Hg] 62 mm[Hg] MAHNAZ ([facility]) Body height 70 [in_i] 70 [in_i] MAHNAZ ([facility]) Body mass index (BMI) [Ratio] 32.26 kg/m2 32.26 kg/m2 MAHNAZ ([facility]) Systolic blood pressure 110 mm[Hg] 110 mm[Hg] A THENA ([facility]) Body weight 3584 [oz_av] 3584 [oz_av] MAHNAZ ([facility]) Diastolic blood pressure 62 mm[Hg] 62 mm[Hg] MAHNAZ ([facility]) Body height 70 [in_i] 70 [in_i] MAHNAZ ([facility]) Body mass index (BMI) [Ratio] 32.26 kg/m2 32.26 kg/m2 MAHNAZ ([facility]) Systolic blood pressure 110 mm[Hg] 110 mm[Hg] A THENA ([facility]) Body weight 3584 [oz_av] 3584 [oz_av] MAHNAZ ([facility]) Diastolic blood pressure 62 mm[Hg] 62 mm[Hg] MAHNAZ ([facility]) Body height 70 [in_i] 70 [in_i] MAHNAZ ([facility]) Body mass index (BMI) [Ratio] 32.26 kg/m2 32.26 kg/m2 MAHNAZ ([facility]) Systolic blood pressure 110 mm[Hg] 110 mm[Hg] A THENA ([facility]) Body weight 3584 [oz_av] 3584 [oz_av] MAHNAZ ([facility]) Diastolic blood pressure 62 mm[Hg] 62 mm[Hg] MAHNAZ ([facility]) Body height 70 [in_i] 70 [in_i] MAHNAZ ([facility]) Body mass index (BMI) [Ratio] 32.26 kg/m2 32.26 kg/m2 MAHNAZ ([facility]) Systolic blood pressure 110 mm[Hg] 110 mm[Hg] A KURTA ([facility]) Body weight 3584 [oz_av] 3584 [oz_av] MAHNAZ ([facility]) Diastolic blood pressure 62 mm[Hg] 62 mm[Hg] MAHNAZ ([facility]) Body height 70 [in_i] 70 [in_i] MAHNAZ ([facility]) Body mass index (BMI) [Ratio] 32.26 kg/m2 32.26 kg/m2 MAHNAZ ([facility]) Systolic blood pressure 110 mm[Hg] 110 mm[Hg] A KURTA ([facility]) Body weight 3584 [oz_av] 3584 [oz_av] MAHNAZ ([facility]) Diastolic blood pressure 62 mm[Hg] 62 mm[Hg] MAHNAZ ([facility]) Body height 70 [in_i] 70 [in_i] MAHNAZ ([facility]) Body mass index (BMI) [Ratio] 32.26 kg/m2 32.26 kg/m2 MAHNAZ ([facility]) Systolic blood pressure 110 mm[Hg] 110 mm[Hg] A KURTA ([facility]) Body weight 3584 [oz_av] 3584 [oz_av] MAHNAZ ([facility]) Diastolic blood pressure 62 mm[Hg] 62 mm[Hg] MAHNAZ ([facility]) Body height 70 [in_i] 70 [in_i] MAHNAZ ([facility]) Body mass index (BMI) [Ratio] 32.26 kg/m2 32.26 kg/m2 MAHNAZ ([facility]) Systolic blood pressure 110 mm[Hg] 110 mm[Hg] A THENA ([facility]) Body weight 3584 [oz_av] 3584 [oz_av] MAHNAZ ([facility]) Oxygen saturation in Arterial blood by Pulse oximetry 98 % 98 % MEDENT ([facility] [place], [facility]) Systolic blood pressure 134 mm[Hg] 134 mm[Hg] M EDENT ([facility], [facility]) Diastolic blood pressure 84 mm[Hg] 84 mm[Hg] MEDENT ([facility], [facility]) Heart rate 96 /min 96 /min MEDENT ([facility], [facility]) Respiratory rate 16 /min 16 /min MEDENT ( [facility], [facility]) Body temperature 97.1 [degF] 97.1 [degF] MEDENT ([facility], [facility]) Body weight 228.00 [lb_av] 228.00 [lb_av] MEDEN T ([facility], [facility]) Body height 70 [in_i] 70 [in_i] MEDENT ([facility], [facility]) 5'10" Body mass index (BMI) [Ratio] 32.7 kg/m2 32.7 k g/m2 [facility] ([facility]) Patient Treatment Plan of Care Planned Activity Planned Date Details Description Data Source (s) Escitalopram 10 MG Oral Tablet [Lexapro] 02/14/2021 12:00:00 AM EDT MAHNAZ ([facility]) Carisoprodol 350 MG Oral Tablet MAHNAZ ([facility]) Amoxicillin 875 MG / Clavulanate 125 MG Oral Tablet MAHNAZ ([facility]) albuterol sulfate HFA 90 mcg/actuation aerosol inhaler MAHNAZ ([facility]) tizanidine 4 MG Oral Capsule MAHNAZ ([facility]) Prednisone 20 MG Oral Tablet MAHNAZ ([facility]) paroxetine 10 mg tablet TAKE ONE TABLET BY MOUTH EVERY DAY MAHNAZ ([facility]) Acetaminophen 325 MG / Oxycodone Hydrochloride 5 MG Oral Tablet MAHNAZ ([facility]) Naproxen 500 MG Oral Tablet MAHNAZ ([facility]) methylprednisolone 4 mg tablets in a dose pack MAHNAZ ([facility]) meloxicam 15 MG Oral Tablet MAHNAZ ([facility]) lidocaine 5 % topical patch MAHNAZ ([facility]) Ketorolac Tromethamine 10 MG Oral Tablet MAHNAZ ([facility]) Ibuprofen 600 MG Oral Tablet MAHNAZ ([facility]) Cyclobenzaprine hydrochloride 5 MG Oral Tablet MAHNAZ ([facility]) Cyclobenzaprine hydrochloride 10 MG Oral Tablet MAHNAZ ([facility]) Carisoprodol 350 MG Oral Tablet MAHNAZ ([facility]) Amoxicillin 875 MG / Clavulanate 125 MG Oral Tablet MAHNAZ ([facility]) albuterol sulfate HFA 90 mcg/actuation aerosol inhaler MAHNAZ ([facility]) tizanidine 4 MG Oral Capsule MAHNAZ ([facility]) Prednisone 20 MG Oral Tablet MAHNAZ ([facility]) paroxetine 10 mg tablet TAKE ONE TABLET BY MOUTH EVERY DAY MAHNAZ ([facility]) Naproxen 500 MG Oral Tablet MAHNAZ ([facility]) methylprednisolone 4 mg tablets in a dose pack MAHNAZ ([facility]) meloxicam 15 MG Oral Tablet MAHNAZ ([facility]) lidocaine 5 % topical patch MAHNAZ ([facility]) Ketorolac Tromethamine 10 MG Oral Tablet AMHNAZ ([facility]) Ibuprofen 600 MG Oral Tablet MAHNAZ ([facility]) Cyclobenzaprine hydrochloride 5 MG Oral Tablet MAHNAZ ([facility]) Cyclobenzaprine hydrochloride 10 MG Oral Tablet MAHNAZ ([facility]) Carisoprodol 350 MG Oral Tablet MAHNAZ ([facility]) Amoxicillin 875 MG / Clavulanate 125 MG Oral Tablet MAHNAZ ([facility]) albuterol sulfate HFA 90 mcg/actuation aerosol inhaler MAHNAZ ([facility]) tizanidine 4 MG Oral Capsule MAHNAZ ([facility]) Prednisone 20 MG Oral Tablet MAHNAZ ([facility]) paroxetine 10 mg tablet TAKE ONE TABLET BY MOUTH EVERY DAY MAHNAZ ([facility]) Naproxen 500 MG Oral Tablet MAHNAZ ([facility]) methylprednisolone 4 mg tablets in a dose pack MAHNAZ ([facility]) meloxicam 15 MG Oral Tablet MAHNAZ ([facility]) lidocaine 5 % topical patch MAHNAZ ([facility]) Ketorolac Tromethamine 10 MG Oral Tablet MAHNAZ ([facility]) Ibuprofen 600 MG Oral Tablet MAHNAZ ([facility]) Cyclobenzaprine hydrochloride 5 MG Oral Tablet MAHNAZ ([facility]) Cyclobenzaprine hydrochloride 10 MG Oral Tablet MAHNAZ ([facility]) Carisoprodol 350 MG Oral Tablet MAHNAZ ([facility]) Amoxicillin 875 MG / Clavulanate 125 MG Oral Tablet MAHNAZ ([facility]) albuterol sulfate HFA 90 mcg/actuation aerosol inhaler MAHNAZ ([facility]) tizanidine 4 MG Oral Capsule MAHNAZ ([facility]) Prednisone 20 MG Oral Tablet MAHNAZ ([facility]) Naproxen 500 MG Oral Tablet MAHNAZ ([facility]) methylprednisolone 4 mg tablets in a dose pack MAHNAZ ([facility]) lidocaine 5 % topical patch MAHNAZ ([facility]) Ketorolac Tromethamine 10 MG Oral Tablet MAHNAZ ([facility]) Cyclobenzaprine hydrochloride 10 MG Oral Tablet MAHNAZ ([facility]) Carisoprodol 350 MG Oral Tablet MAHNAZ ([facility]) Amoxicillin 875 MG / Clavulanate 125 MG Oral Tablet MAHNAZ ([facility]) albuterol sulfate HFA 90 mcg/actuation aerosol inhaler MAHNAZ ([facility]) tizanidine 4 MG Oral Capsule MAHNAZ ([facility]) Prednisone 20 MG Oral Tablet MAHNAZ ([facility]) Naproxen 500 MG Oral Tablet MAHNAZ ([facility]) methylprednisolone 4 mg tablets in a dose pack MAHNAZ ([facility]) lidocaine 5 % topical patch MAHNAZ ([facility]) Ketorolac Tromethamine 10 MG Oral Tablet MAHNAZ ([facility]) Ibuprofen 600 MG Oral Tablet MAHNAZ ([facility]) Cyclobenzaprine hydrochloride 5 MG Oral Tablet MAHNAZ ([facility]) Cyclobenzaprine hydrochloride 10 MG Oral Tablet MAHNAZ ([facility]) Carisoprodol 350 MG Oral Tablet MAHNAZ ([facility]) Amoxicillin 875 MG / Clavulanate 125 MG Oral Tablet MAHNAZ ([facility]) albuterol sulfate HFA 90 mcg/actuation aerosol inhaler MAHNAZ ([facility]) Trazodone Hydrochloride 50 MG Oral Tablet MAHNAZ ([facility]) tizanidine 4 MG Oral Capsule MAHNAZ ([facility]) Prednisone 20 MG Oral Tablet MAHNAZ ([facility]) Naproxen 500 MG Oral Tablet MAHNAZ ([facility]) methylprednisolone 4 mg tablets in a dose pack MAHNAZ ([facility]) meloxicam 15 MG Oral Tablet MAHNAZ ([facility]) lidocaine 5 % topical patch MAHNAZ ([facility]) Ketorolac Tromethamine 10 MG Oral Tablet MAHNAZ ([facility]) Ibuprofen 600 MG Oral Tablet MAHNAZ ([facility]) Cyclobenzaprine hydrochloride 5 MG Oral Tablet MAHNAZ ([facility]) Cyclobenzaprine hydrochloride 10 MG Oral Tablet MAHNAZ ([facility]) Carisoprodol 350 MG Oral Tablet MAHNAZ ([facility]) Amoxicillin 875 MG / Clavulanate 125 MG Oral Tablet MAHNAZ ([facility]) albuterol sulfate HFA 90 mcg/actuation aerosol inhaler MAHNAZ ([facility]) Trazodone Hydrochloride 50 MG Oral Tablet MAHNAZ ([facility]) tizanidine 4 MG Oral Capsule MAHNAZ ([facility]) Prednisone 20 MG Oral Tablet MAHNAZ ([facility]) Naproxen 500 MG Oral Tablet MAHNAZ ([facility]) methylprednisolone 4 mg tablets in a dose pack MAHNAZ ([facility]) meloxicam 15 MG Oral Tablet MAHNAZ ([facility]) lidocaine 5 % topical patch MAHNAZ ([facility]) Ketorolac Tromethamine 10 MG Oral Tablet MAHNAZ ([facility]) Ibuprofen 600 MG Oral Tablet MAHNAZ ([facility]) Cyclobenzaprine hydrochloride 5 MG Oral Tablet MAHNAZ ([facility]) Cyclobenzaprine hydrochloride 10 MG Oral Tablet MAHNAZ ([facility]) Carisoprodol 350 MG Oral Tablet MAHNAZ ([facility]) Amoxicillin 875 MG / Clavulanate 125 MG Oral Tablet MAHNAZ ([facility]) albuterol sulfate HFA 90 mcg/actuation aerosol inhaler MAHNAZ ([facility]) Trazodone Hydrochloride 50 MG Oral Tablet MAHNAZ ([facility]) tizanidine 4 MG Oral Capsule MAHNAZ ([facility]) Prednisone 20 MG Oral Tablet MAHNAZ ([facility]) Naproxen 500 MG Oral Tablet MAHNAZ ([facility]) methylprednisolone 4 mg tablets in a dose pack MAHNAZ ([facility]) meloxicam 15 MG Oral Tablet MAHNAZ ([facility]) lidocaine 5 % topical patch MAHNAZ ([facility]) Ketorolac Tromethamine 10 MG Oral Tablet MAHNAZ ([facility]) Ibuprofen 600 MG Oral Tablet MAHNAZ ([facility]) Cyclobenzaprine hydrochloride 5 MG Oral Tablet MAHNAZ ([facility]) Cyclobenzaprine hydrochloride 10 MG Oral Tablet MAHNAZ ([facility]) Carisoprodol 350 MG Oral Tablet MAHNAZ ([facility]) Amoxicillin 875 MG / Clavulanate 125 MG Oral Tablet MAHNAZ ([facility]) albuterol sulfate HFA 90 mcg/actuation aerosol inhaler MAHNAZ ([facility]) tizanidine 4 MG Oral Capsule MAHNAZ ([facility]) Prednisone 20 MG Oral Tablet MAHNAZ ([facility]) Naproxen 500 MG Oral Tablet MAHNAZ ([facility]) methylprednisolone 4 mg tablets in a dose pack MAHNAZ ([facility]) meloxicam 15 MG Oral Tablet MAHNAZ ([facility]) lidocaine 5 % topical patch MAHNAZ ([facility]) Ketorolac Tromethamine 10 MG Oral Tablet MAHNAZ ([facility]) Ibuprofen 600 MG Oral Tablet MAHNAZ ([facility]) Cyclobenzaprine hydrochloride 5 MG Oral Tablet MAHNAZ ([facility]) Cyclobenzaprine hydrochloride 10 MG Oral Tablet MAHNAZ ([facility]) Carisoprodol 350 MG Oral Tablet MAHNAZ ([facility]) tizanidine 4 MG Oral Capsule MAHNAZ ([facility]) Prednisone 20 MG Oral Tablet MAHNAZ ([facility]) paroxetine 10 mg tablet TAKE ONE TABLET BY MOUTH EVERY DAY MAHNAZ ([facility]) Acetaminophen 325 MG / Oxycodone Hydrochloride 5 MG Oral Tablet MAHNAZ ([facility]) Naproxen 500 MG Oral Tablet MAHNAZ ([facility]) methylprednisolone 4 mg tablets in a dose pack MAHNAZ ([facility]) meloxicam 15 MG Oral Tablet MAHNAZ ([facility]) lidocaine 5 % topical patch MAHNAZ ([facility]) Ketorolac Tromethamine 10 MG Oral Tablet MAHNAZ ([facility]) Ibuprofen 600 MG Oral Tablet MAHNAZ ([facility]) Cyclobenzaprine hydrochloride 5 MG Oral Tablet MAHNAZ ([facility]) Cyclobenzaprine hydrochloride 10 MG Oral Tablet MAHNAZ ([facility]) Carisoprodol 350 MG Oral Tablet MAHNAZ ([facility]) Amoxicillin 875 MG / Clavulanate 125 MG Oral Tablet MAHNAZ ([facility]) albuterol sulfate HFA 90 mcg/actuation aerosol inhaler MAHNAZ ([facility]) tizanidine 4 MG Oral Capsule MAHNAZ ([facility]) Prednisone 20 MG Oral Tablet MAHNAZ ([facility]) paroxetine 10 mg tablet TAKE ONE TABLET BY MOUTH EVERY DAY MAHNAZ ([facility]) Acetaminophen 325 MG / Oxycodone Hydrochloride 5 MG Oral Tablet MAHNAZ ([facility]) Naproxen 500 MG Oral Tablet MAHNAZ ([facility]) methylprednisolone 4 mg tablets in a dose pack MAHNAZ ([facility]) meloxicam 15 MG Oral Tablet MAHNAZ ([facility]) lidocaine 5 % topical patch MAHNAZ ([facility]) Ketorolac Tromethamine 10 MG Oral Tablet MAHNAZ ([facility]) Ibuprofen 600 MG Oral Tablet MAHNAZ ([facility]) Cyclobenzaprine hydrochloride 5 MG Oral Tablet MAHNAZ ([facility]) Cyclobenzaprine hydrochloride 10 MG Oral Tablet MAHNAZ ([facility]) Carisoprodol 350 MG Oral Tablet MAHNAZ ([facility]) Amoxicillin 875 MG / Clavulanate 125 MG Oral Tablet MAHNAZ ([facility]) albuterol sulfate HFA 90 mcg/actuation aerosol inhaler MAHNAZ ([facility]) tizanidine 4 MG Oral Capsule MAHNAZ ([facility]) Prednisone 20 MG Oral Tablet MAHNAZ ([facility]) paroxetine 10 mg tablet TAKE ONE TABLET BY MOUTH EVERY DAY [facility] [facility] Acetaminophen 325 MG / Oxycodone Hydrochloride 5 MG Oral Tablet [facility] ([facility]) Naproxen 500 MG Oral Tablet [facility] ([facility]) methylprednisolone 4 mg tablets in a dose pack [facility] ([facility]) meloxicam 15 MG Oral Tablet [facility] ([facility]) lidocaine 5 % topical patch [facility] ([facility]) Ketorolac Tromethamine 10 MG Oral Tablet [facility] ([facility]) Ibuprofen 600 MG Oral Tablet [facility] ([facility]) Cyclobenzaprine hydrochloride 5 MG Oral Tablet [facility] ([facility]) Cyclobenzaprine hydrochloride 10 MG Oral Tablet [facility] ([facility]) Amoxicillin 875 MG / Clavulanate 125 MG Oral Tablet [facility] ([facility]) albuterol sulfate HFA 90 mcg/actuation aerosol inhaler [facility] ([facility]) tizanidine 4 MG Oral Capsule [facility] ([facility]) Prednisone 20 MG Oral Tablet [facility] ([facility]) Naproxen 500 MG Oral Tablet [facility] ([facility]) meloxicam 15 MG Oral Tablet [facility] ([facility]) Ketorolac Tromethamine 10 MG Oral Tablet [facility] ([facility]) Ibuprofen 600 MG Oral Tablet [facility] ([facility]) Cyclobenzaprine hydrochloride 5 MG Oral Tablet [facility] ([facility]) Cyclobenzaprine hydrochloride 10 MG Oral Tablet [facility] ([facility]) Amoxicillin 875 MG / Clavulanate 125 MG Oral Tablet [facility] ([facility]) tizanidine 4 MG Oral Capsule [facility] ([facility]) Prednisone 20 MG Oral Tablet [facility] ([facility]) Naproxen 500 MG Oral Tablet [facility] ([facility]) meloxicam 15 MG Oral Tablet [facility] ([facility]) Ketorolac Tromethamine 10 MG Oral Tablet [facility] ([facility]) Ibuprofen 600 MG Oral Tablet [facility] ([facility]) Cyclobenzaprine hydrochloride 5 MG Oral Tablet [facility] ([facility]) Cyclobenzaprine hydrochloride 10 MG Oral Tablet [facility] ([facility]) Amoxicillin 875 MG / Clavulanate 125 MG Oral Tablet [facility] ([facility]) tizanidine 4 MG Oral Capsule [facility] ([facility]) Prednisone 20 MG Oral Tablet [facility] ([facility]) Naproxen 500 MG Oral Tablet [facility] ([facility]) methylprednisolone 4 mg tablets in a dose pack [facility] ([facility]) Ketorolac Tromethamine 10 MG Oral Tablet [facility] ([facility]) Cyclobenzaprine hydrochloride 10 MG Oral Tablet [facility] ([facility]) Amoxicillin 875 MG / Clavulanate 125 MG Oral Tablet [facility] ([facility])
--- NOTE | 2021-04-26 17:39 | REP ---
INDICATION: left calf pain and hematoma of muller COMPARISON: None. TECHNIQUE: Real time compression and duplex Doppler interrogation of the left lower extremity deep venous system is performed, including the right common femoral vein.Compression of the left peroneal and posterior tibial veins is performed. FINDINGS: The left common femoral, superficial femoral and popliteal veins are fully compressible with transducer pressure and demonstrate normal spontaneous and phasic flow, without evidence of deep venous thrombosis.The right common femoral vein demonstrates no thrombus.The visualized left peroneal and posterior tibial veins demonstrate no thrombus. There is a small fluid collection in the left calf at the site of bruising, 8 x 3 x 6 mm. IMPRESSION: No evidence of deep venous thrombosis of the left lower extremity femoral popliteal venous system.No thrombus in the visualized left peroneal and posterior tibial veins. <Electronically signed by López Mcdowell > 04/26/21 [id number]
[2021-04-26] MEDS ORDERED: NAPR-837 PO (17:51)
[2021-04-26 17:58] VITALS: BP 108/54
--- OUTSIDE RECORDS SUMMARY | 2021-04-26 18:20 | CCD ---
Author Author [facility] Organization [facility] Address Unknown Phone Unavailable Care Team Providers Care Catalyst Plant Supervisor Name Role Phone Rachael Fagan MD Unavailable [...] Fagan MD Unavailable Unavailable Melissa Kwok Unavailable [phone] Dori Blackburn ASE CERTIFIED TECHNICIAN ASE CERTIFIED TECHNICIAN Unavailable Unavailable Cristofer Branham MD Unavailable Unavailable [...] Unavailable Unavailable Thomas Helton MD Unavailable Unavailable Tohmas Helton MD Unavailable Unavailable Thomas Helton MD [...] TURRIN, ERON Unavailable Unavailable Jumalon, M Jacy ASE CERTIFIED TECHNICIAN Unavailable Unavailable Jumalon, M Jacy ASE CERTIFIED TECHNICIAN Unavailable Unavailable Jumalon, M Jacy ASE CERTIFIED TECHNICIAN Unavailable Unavailable Jumalon, M Jacy ASE CERTIFIED TECHNICIAN Unavailable Unavailable Jumalon, M Jacy ASE CERTIFIED TECHNICIAN Unavailable Unavailable Jumalon, M Jacy ASE CERTIFIED TECHNICIAN Unavailable Unavailable Jumalon, M Jacy ASE CERTIFIED TECHNICIAN Unavailable Unavailable Jumalon, M Jacy ASE CERTIFIED TECHNICIAN Unavailable Unavailable Jumalon, M Jacy ASE CERTIFIED TECHNICIAN Unavailable Unavailable Jumalon, M Jacy ASE CERTIFIED TECHNICIAN Unavailable Unavailable Jumalon, M Jacy ASE CERTIFIED TECHNICIAN Unavailable Unavailable Jumalon, M Jacy ASE CERTIFIED TECHNICIAN Unavailable Unavailable Jumalon, M Jacy ASE CERTIFIED TECHNICIAN Unavailable Unavailable Jumalon, M Jacy ASE CERTIFIED TECHNICIAN Unavailable Unavailable Jumalon, M Jacy ASE CERTIFIED TECHNICIAN Unavailable Unavailable Jumalon, M Jacy ASE CERTIFIED TECHNICIAN Unavailable Unavailable Jumalon, M Jacy ASE CERTIFIED TECHNICIAN Unavailable Unavailable Jumalon, M Jacy ASE CERTIFIED TECHNICIAN Unavailable Unavailable Jumalon, M Jacy ASE CERTIFIED TECHNICIAN Unavailable Unavailable Jumalon, M Jacy ASE CERTIFIED TECHNICIAN Unavailable Unavailable Jumalon, M Jacy ASE CERTIFIED TECHNICIAN Unavailable Unavailable Jumalon, M Jacy ASE CERTIFIED TECHNICIAN Unavailable Unavailable Jumalon, M Jacy ASE CERTIFIED TECHNICIAN Unavailable Unavailable Jumalon, M Jacy ASE CERTIFIED TECHNICIAN Unavailable Unavailable Jumalon, M Jacy ASE CERTIFIED TECHNICIAN Unavailable Unavailable Jumalon, M Jacy ASE CERTIFIED TECHNICIAN Unavailable Unavailable Jumalon, M Jacy ASE CERTIFIED TECHNICIAN Unavailable Unavailable Jumalon, M Jacy ASE CERTIFIED TECHNICIAN Unavailable Unavailable Jumalon, M Jacy ASE CERTIFIED TECHNICIAN Unavailable Unavailable Jumalon, M Jacy ASE CERTIFIED TECHNICIAN Unavailable Unavailable Campanaro, Mare Ines PA Unavailable [...] Domonique MD Unavailable Unavailable Alexey, A Dori ASE CERTIFIED TECHNICIAN Unavailable Unavailable Alexey, A Dori ASE CERTIFIED TECHNICIAN Unavailable Unavailable Alexey, A Dori ASE CERTIFIED TECHNICIAN Unavailable Unavailable Alexey, A Dori ASE CERTIFIED TECHNICIAN Unavailable Unavailable Alexey, A Dori ASE CERTIFIED TECHNICIAN Unavailable Unavailable Alexey, A Dori ASE CERTIFIED TECHNICIAN Unavailable Unavailable Alexey, A Dori ASE CERTIFIED TECHNICIAN Unavailable Unavailable Alexey, A Dori ASE CERTIFIED TECHNICIAN Unavailable Unavailable Alexey, A Dori ASE CERTIFIED TECHNICIAN Unavailable Unavailable Alexey, A Dori ASE CERTIFIED TECHNICIAN Unavailable Unavailable Alexey, A Dori ASE CERTIFIED TECHNICIAN Unavailable Unavailable Alexey, A Dori ASE CERTIFIED TECHNICIAN Unavailable Unavailable Alexey, A Dori ASE CERTIFIED TECHNICIAN Unavailable Unavailable Alexey, A Dori ASE CERTIFIED TECHNICIAN Unavailable Unavailable Alexey, A Dori ASE CERTIFIED TECHNICIAN Unavailable Unavailable Alexey, A Dori ASE CERTIFIED TECHNICIAN Unavailable Unavailable Alexey, A Dori ASE CERTIFIED TECHNICIAN Unavailable Unavailable Alexey, A Dori ASE CERTIFIED TECHNICIAN Unavailable Unavailable Alexey, A Dori ASE CERTIFIED TECHNICIAN Unavailable Unavailable Alexey, A Dori ASE CERTIFIED TECHNICIAN Unavailable Unavailable Alexey, A Dori ASE CERTIFIED TECHNICIAN Unavailable Unavailable Alexey, A Dori ASE CERTIFIED TECHNICIAN Unavailable Unavailable Alexey, A Dori ASE CERTIFIED TECHNICIAN Unavailable Unavailable Alexey, A Dori ASE CERTIFIED TECHNICIAN Unavailable Unavailable Alexey, A Dori ASE CERTIFIED TECHNICIAN Unavailable Unavailable Alexey, A Dori ASE CERTIFIED TECHNICIAN Unavailable Unavailable Alexey, A Dori ASE CERTIFIED TECHNICIAN Unavailable Unavailable Alexey, A Dori ASE CERTIFIED TECHNICIAN Unavailable Unavailable Alexey, A Dori ASE CERTIFIED TECHNICIAN Unavailable Unavailable Alexey, A Dori ASE CERTIFIED TECHNICIAN Unavailable Unavailable Alexey, A Dori ASE CERTIFIED TECHNICIAN Unavailable Unavailable Machuca, M Christopher PA-C Unavailable [...] is protected by Article 27-F of the [facility] Public Health law. If you continue you may have access to information: Regarding HIV / AIDS; Provided by facilities licensed or operated by the [facility] Office of Mental Health; or Provided by the [facility] Office for People With Developmental Disabilities. If such information is present, then the following [facility] mandated warning applies: This information has been [...] law may result in a fine or residential sentence or both. A general authorization for the release of medical or other information is NOT sufficient authorization for further disc losure. Allergies and Adverse Reactions Type Description Substance Reaction Status Data Source(s ) Allergy to substance Allergy to substance Allergy to substance [facility] ([facility]) Allergy to substance Allergy to substance Allergy to substance [facility] ([facility]) Allergy to substance Allergy to substance Allergy to substance [facility] ([facility]) Family History Family Member Name Family Member Gender Family Member Status Date o f Status Description Data Source(s) Unknown Male Problem MEDENT ([facility]) Encounters Encounter Providers Location Date Indications Data Source(s ) Ministerio Fagan MD: [address] [place] [address], Ph. Attender: Ministerio Fagan MD [facility] Medical 03/30/2021 12:00:00 AM EDT [facility] ([facility]) Ministerio Fagan MD: [address] [place] [address], Ph. Attender: Ministerio Fagan MD [facility] Medical 03/02/2021 12:00:00 AM EDT [facility] ([facility]) Ministerio Fagan MD: [address] [place] [address], Ph. Attender: Ministerio Fagan MD [facility] Medical 03/02/2021 12:00:00 AM EDT [facility] ([facility]) Janene Branham MD: [address], [place] [address], Ph. Attender: Janene Branham MD [facility] Medical 02/14/2021 12:00:00 AM EDT [facility] ([facility]) Janene Branham MD: [address], [place] [address], Ph. Attender: Janene Branham MD [facility] Medical 02/14/2021 12:00:00 AM EDT [facility] ([facility]) Janene Branham MD: [address], [place] [address], Ph. Attender: Janene Branham MD [facility] Medical 02/14/2021 12:00:00 AM EDT [facility] ([facility]) Janene Branham MD: [address], [place] [address], Ph. Attender: Janene Branham MD [facility] Medical 02/14/2021 12:00:00 AM EDT [facility] ([facility]) Ministerio Fagan MD: [address] [place] [address], Ph. Attender: Ministerio Fagan MD [facility] Medical 01/31/2021 12:00:00 AM EDT [facility] ([facility]) Ministerio Fagan MD: [address] [place] [address], Ph. Attender: Ministerio Fagan MD [facility] Medical 01/31/2021 12:00:00 AM EDT [facility] ([facility]) Ministerio Fagan MD: [address] [place] [address], Ph. Attender: Ministerio Fagan MD [facility] Medical 01/31/2021 12:00:00 AM EDT [facility] ([facility]) Ministerio Fagan MD: [address] [place] [address], Ph. Attender: Ministerio Fagan MD [facility] Medical 01/31/2021 12:00:00 AM EDT [facility] ([facility]) Ministerio Fagan MD: [address] [place] [address], Ph. Attender: Ministerio Fagan MD [facility] Medical 01/31/2021 12:00:00 AM EDT [facility] ([facility]) Ministerio Fagan MD: [address] [place] [address], Ph. Attender: Ministerio Fagan MD [facility] Medical 12/08/2020 12:00:00 AM EDT [facility] ([facility]) Ministerio Fagan MD: [address] [place] [address], Ph. Attender: Ministerio Fagan MD [facility] Medical 12/08/2020 12:00:00 AM EDT [facility] ([facility]) Ministerio Fagan MD: [address] [place] [address], Ph. Attender: Ministerio Fagan MD [facility] Medical 12/08/2020 12:00:00 AM EDT [facility] ([facility]) Ministerio Fagan MD: [address] [place] [address], Ph. Attender: Ministerio Fagan MD [facility] Medical 12/08/2020 12:00:00 AM EDT [facility] ([facility]) Ministerio Fagan MD: [address] [place] [address], Ph. Attender: Ministerio Fagan MD [facility] Medical 12/08/2020 12:00:00 AM EDT [facility] ([facility]) Ministerio Fagan MD: [address] [place] [address], Ph. Attender: Mniisterio Fagan MD [facility] Medical 12/08/2020 12:00:00 AM EDT [facility] ([facility]) Ministerio Fagan MD: [address] [place] [address], Ph. Attender: Ministerio Fagan MD [facility] Medical 11/12/2020 12:00:00 AM EDT [facility] ([facility]) Ministerio Fagan MD: [address] [place] [address], Ph. Attender: Ministerio Fagan MD [facility] Medical 11/12/2020 12:00:00 AM EDT [facility] ([facility]) Ministerio Fagan MD: [address] [place] [address], Ph. Attender: Ministerio Fagan MD [facility] Medical 11/12/2020 12:00:00 AM EDT [facility] ([facility]) Ministerio Fagan MD: [address] [place] [address], Ph. Attender: Ministerio Fagan MD [facility] Medical 11/12/2020 12:00:00 AM EDT [facility] ([facility]) Ministerio Fagan MD: [address] [place] [address], Ph. Attender: Ministerio Fagan MD [facility] Medical 11/12/2020 12:00:00 AM EDT [facility] ([facility]) Ministerio Fagan MD: [address] [place] [address], Ph. Attender: Ministerio Fagan MD [facility] Medical 11/12/2020 12:00:00 AM EDT [facility] ([facility]) Ministerio Fagan MD: [address] [place] [address], Ph. Attender: Ministerio Fagan MD [facility] Medical 11/12/2020 12:00:00 AM EDT [facility] ([facility]) Ministerio Fagan MD: [address] [place] [address], Ph. Attender: Ministerio Fagan MD [facility] Medical 11/04/2020 12:00:00 AM EDT [facility] ([facility]) Ministerio Fagan MD: [address] [place] [address], Ph. Attender: Ministerio Fagan MD [facility] Medical 11/04/2020 12:00:00 AM EDT [facility] ([facility]) Ministerio Fagan MD: [address] [place] [address], Ph. Attender: Ministerio Fagan MD [facility] Medical 11/04/2020 12:00:00 AM EDT [facility] ([facility]) Ministerio Fagan MD: [address] [place] [address], Ph. Attender: Ministerio Fagan MD [facility] Medical 11/04/2020 12:00:00 AM EDT [facility] ([facility]) Ministerio Fagan MD: [address], [place] [address], Ph. Attender: Ministerio Fagan MD [facility] Medical 11/04/2020 12:00:00 AM EDT [facility] ([facility]) Ministerio Fagan MD: [address] [place] [address], Ph. Attender: Ministerio Fagan MD [facility] Medical 11/04/2020 12:00:00 AM EDT [facility] ([facility]) Ministerio Fagan MD: [address] [place] [address], Ph. Attender: Ministerio Fagan MD [facility] Medical 11/04/2020 12:00:00 AM EDT [facility] ([facility]) Ministerio Fagan MD: [address] [place] [address], Ph. Attender: Ministerio Fagan MD [facility] Medical 11/04/2020 12:00:00 AM EDT [facility] ([facility]) Mniisterio Fagan MD: [address] [place] [address], Ph. Attender: Ministerio Fagan MD [facility] Medical 09/03/2020 12:00:00 AM EST [facility] ([facility]) Ministerio Fagan MD: [address] [place] [address], Ph. Attender: Ministerio Fagan MD [facility] Medical 09/03/2020 12:00:00 AM EST [facility] ([facility]) Ministerio Fagan MD: [address] [place] [address], Ph. Attender: Ministerio Fagan MD [facility] Medical 09/03/2020 12:00:00 AM EST [facility] ([facility]) Ministerio Fagan MD: [address] [place] [address], Ph. Attender: Ministerio Fagan MD [facility] Medical 09/03/2020 12:00:00 AM EST [facility] ([facility]) Ministerio Fagan MD: [address] [place] [address], Ph. Attender: Ministerio Fagan MD [facility] Medical 09/03/2020 12:00:00 AM EST [facility] ([facility]) Ministerio Fagan MD: [address] [place] [address], Ph. Attender: Ministerio Fagan MD [facility] Medical 09/03/2020 12:00:00 AM EST [facility] ([facility]) Ministerio Fagan MD: [address] [place] [address], Ph. Attender: Ministerio Fagan MD [facility] Medical 09/03/2020 12:00:00 AM EST [facility] ([facility]) Ministerio Fagan MD: [address] [place] [address]1 [address], Ph. Attender: Ministerio Fagan MD [facility] Medical 09/03/2020 12:00:00 AM EST [facility] ([facility]) Outpatient Attender: Augusto Helton MD [id number] 08/11/2020 09:14:22 A M [facility] Ministerio Fagan MD: [address] [place] [address], Ph. Attender: Ministerio Fagan MD [facility] Medical 06/02/2020 12:00:00 AM EST [facility] ([facility]) Ministerio Fagan MD: [address] [place] [address], Ph. Attender: Ministerio Fagan MD [facility] Medical 06/02/2020 12:00:00 AM EST [facility] ([facility]) Ministerio Fagan MD: [address] [place] [address], Ph. Attender: Ministerio Fagan MD [facility] Medical 06/02/2020 12:00:00 AM EST [facility] ([facility]) Ministerio Fagan MD: [address] [place] [address], Ph. Attender: Ministerio Fagan MD [facility] Medical 06/02/2020 12:00:00 AM EST [facility] ([facility]) Ministerio Fagan MD: [address] [place] [address], Ph. Attender: Ministerio Fagan MD [facility] Medical 06/02/2020 12:00:00 AM EST [facility] ([facility]) Ministerio Fagan MD: [address] [place] [address], Ph. Attender: Ministerio Fagan MD [facility] Medical 06/02/2020 12:00:00 AM EST [facility] ([facility]) Ministerio Fagan MD: [address] [place] [address], Ph. Attender: Ministerio Fagan MD [facility] Medical 06/02/2020 12:00:00 AM EST [facility] ([facility]) Ministerio Fagan MD: [address] [place] [address], Ph. Attender: Ministerio Fagan MD [facility] Medical 06/02/2020 12:00:00 AM EST [facility] ([facility]) Ministerio Fagan MD: [address] [place] [address], Ph. Attender: Ministerio Fagan MD [facility] Medical 06/02/2020 12:00:00 AM EST [facility] ([facility]) Ministerio Fagan MD: [address] [place] [address], Ph. Attender: Ministerio Fagan MD [facility] Medical 06/02/2020 12:00:00 AM EST [facility] ([facility]) Ministerio Fagan MD: [address] [place] [address], Ph. Attender: Ministerio Fagan MD [facility] Medical 06/02/2020 12:00:00 AM EST [facility] ([facility]) Ministerio Fagan MD: [address] [place] [address], Ph. Attender: Ministerio Fagan MD [facility] Medical 05/26/2020 12:00:00 AM EST [facility] ([facility]) Ministerio Fagan MD: [address] [place] [address], Ph. Attender: Ministerio Fagan MD [facility] Medical 05/26/2020 12:00:00 AM EST [facility] ([facility]) Ministerio Fagan MD: [address] [place] [address], Ph. Attender: Ministerio Fagan MD [facility] Medical 05/26/2020 12:00:00 AM EST [facility] ([facility]) Ministerio Fagan MD: [address] [place] [address], Ph. Attender: Ministerio Fagan MD [facility] Medical 05/26/2020 12:00:00 AM EST [facility] ([facility]) Ministerio Fagan MD: [address] [place] [address]1 [address], Ph. Attender: Ministerio Fagan MD [facility] Medical 05/26/2020 12:00:00 AM EST [facility] ([facility]) Ministerio Fagan MD: [address] [place] [address], Ph. Attender: Ministerio Fagan MD [facility] Medical 05/26/2020 12:00:00 AM EST [facility] ([facility]) Ministerio Fagan MD: [address] [place] [address], Ph. Attender: Minitserio Fagan MD [facility] Medical 05/26/2020 12:00:00 AM EST [facility] ([facility]) Ministerio Fagan MD: [address] [place] [address], Ph. Attender: Ministerio Fagan MD [facility] Medical 05/26/2020 12:00:00 AM EST [facility] ([facility]) Ministerio Fagan MD: [address] [place] [address], Ph. Attender: Ministerio Fagan MD [facility] Medical 05/26/2020 12:00:00 AM EST [facility] ([facility]) Ministerio Fagan MD: [address] [place] [address], Ph. Attender: Ministerio Fagan MD [facility] Medical 05/26/2020 12:00:00 AM EST [facility] ([facility]) Ministerio Fagan MD: [address] [place] [address], Ph. Attender: Ministerio Fagan MD [facility] Medical 05/26/2020 12:00:00 AM EST [facility] ([facility]) Ministerio Fagan MD: [address] [place] [address], Ph. Attender: Ministerio Fagan MD [facility] Medical 05/26/2020 12:00:00 AM EST [facility] ([facility]) Outpatient Attender: Augusto Helton MDReferrer: Augusto Helton MD [id number] 05/24/2020 02:38:00 PM EST - 05/24/2020 11:59:00 PM EST [facility] Patient discharged. Ministerio Fagan MD: [address] [place] [address], Ph. Attender: Ministerio Fagan MD [facility] Medical 05/12/2020 12:00:00 AM EST [facility] ([facility]) Ministerio Fagan MD: [address] [place] [address], Ph. Attender: Ministerio Fagan MD [facility] Medical 05/12/2020 12:00:00 AM EST [facility] ([facility]) RANDAL CurtisW-R: [address] [place] [address], Ph. Attender: Melissa Kwok [facility] Medical 05/12/2020 12:00:00 AM EST [facility] ([facility]) Ministerio Fagan MD: [address] [place] [address], Ph. Attender: Ministerio Fagan MD [facility] Medical 05/12/2020 12:00:00 AM EST [facility] ([facility]) RANDAL CurtisW-R: [address] [place] [address], Ph. Attender: Melissa Kwok [facility] Medical 05/12/2020 12:00:00 AM EST [facility] ([facility]) Ministerio Fagan MD: [address] [place] [address], Ph. Attender: Ministerio Fagan MD [facility] Medical 05/12/2020 12:00:00 AM EST [facility] ([facility]) Melissahayley Kwok, BIOMEDICAL EQUIPMENT TECHNICIAN-R: [address] [place] [address], Ph. Attender: Melissa Kwok [facility] Medical 05/12/2020 12:00:00 AM EST [facility] ([facility]) Ministerio Fagan MD: [address] [place] [address], Ph. Attender: Ministerio Fagan MD [facility] Medical 05/12/2020 12:00:00 AM EST [facility] ([facility]) Melissaleon Hoskinso, BIOMEDICAL EQUIPMENT TECHNICIAN-R: [address] [place] [address], Ph. Attender: Melissa Kwok [facility] Medical 05/12/2020 12:00:00 AM EST [facility] ([facility]) Ministerio Fagan MD: [address] [place] [address], Ph. Attender: Ministerio Fagan MD [facility] Medical 05/12/2020 12:00:00 AM EST [facility] ([facility]) Melissa Turturrmoustapha, BIOMEDICAL EQUIPMENT TECHNICIAN-R: [address] [place] [address], Ph. Attender: Melissahayley Kwok [facility] Medical 05/12/2020 12:00:00 AM EST [facility] ([facility]) Ministerio Fagan MD: [address] [place] [address], Ph. Attender: Ministerio Fagan MD [facility] Medical 05/12/2020 12:00:00 AM EST [facility] ([facility]) Melissa Kwok, BIOMEDICAL EQUIPMENT TECHNICIAN-R: [address] [place] [address], Ph. Attender: Melissa Kwok [facility] Medical 05/12/2020 12:00:00 AM EST [facility] ([facility]) Ministerio Fagan MD: [address] [place] [address], Ph. Attender: Ministerio Fagan MD [facility] Medical 05/12/2020 12:00:00 AM EST [facility] ([facility]) Melissa Kwok, BIOMEDICAL EQUIPMENT TECHNICIAN-R: [address] [place] [address], Ph. Attender: Melissa Kwok [facility] Medical 05/12/2020 12:00:00 AM EST [facility] ([facility]) Ministerio Fagan MD: [address] [place] [address], Ph. Attender: Ministerio Fagan MD [facility] Medical 05/12/2020 12:00:00 AM EST [facility] ([facility]) Melissa Kwok, BIOMEDICAL EQUIPMENT TECHNICIAN-R: [address] [place] [address], Ph. Attender: Melissa Kwok [facility] Medical 05/12/2020 12:00:00 AM EST [facility] ([facility]) Ministerio Fagan MD: [address] [place] [address], Ph. Attender: Ministerio Fagan MD [facility] Medical 05/12/2020 12:00:00 AM EST [facility] ([facility]) Melissaleon Vermaturro, BIOMEDICAL EQUIPMENT TECHNICIAN-R: [address] [place] [address], Ph. Attender: Melissa Kwok [facility] Medical 05/12/2020 12:00:00 AM EST [facility] ([facility]) Ministerio Fagan MD: [address] [place] [address], Ph. Attender: Ministerio aFgan MD [facility] Medical 05/12/2020 12:00:00 AM EST [facility] ([facility]) Melissaleon Vermaturro, BIOMEDICAL EQUIPMENT TECHNICIAN-R: [address] [place] [address], Ph. Attender: Melissa Vermaturro [facility] Medical 05/12/2020 12:00:00 AM EST [facility] ([facility]) Ministerio Fagan MD: [address] [place] [address], Ph. Attender: Ministerio Fagan MD [facility] Medical 05/12/2020 12:00:00 AM EST [facility] ([facility]) Melissaleon Hoskinso, BIOMEDICAL EQUIPMENT TECHNICIAN-R: [address] [place] [address], Ph. Attender: Melissa Bayrontjerome [facility] Medical 05/12/2020 12:00:00 AM EST [facility] ([facility]) Ministerio Fagan MD: [address] [place] [address], Ph. Attender: Ministerio Fagan MD [facility] Medical 05/12/2020 12:00:00 AM EST [facility] ([facility]) Melissa Kwok, BIOMEDICAL EQUIPMENT TECHNICIAN-R: [address] [place] [address], Ph. Attender: Melissa Kwok [facility] Medical 05/12/2020 12:00:00 AM EST [facility] ([facility]) Ministerio Fagan MD: [address] [place] [address], Ph. Attender: Ministerio Fagan MD [facility] Medical 05/12/2020 12:00:00 AM EST [facility] ([facility]) Melissa Kwok, BIOMEDICAL EQUIPMENT TECHNICIAN-R: [address] [place] [address], Ph. Attender: Melissa Kwok [facility] Medical 05/12/2020 12:00:00 AM EST [facility] ([facility]) Outpatient Referrer: Augusto Helton MD 05/07/2020 09:12:50 AM E [facility] Outpatient Referrer: Augusto Helton MD 05/07/2020 12:00:0 0 AM EST Spinal stenosis, lumbar region with neurogenic claudication [facility] Spinal stenosis, lumbar region with neur ogenic claudication Outpatient Attender: CRICKET BRYANT 05/06/2020 01:46:01 P M EST [facility] Ministerio Fagan MD: [address] [place] [address], Ph. Attender: Ministerio Fagan MD [facility] Medical 04/22/2020 12:00:00 AM EDT [facility] ([facility]) Ministerio Fagan MD: [address] [place] [address], Ph. Attender: Ministerio Fagan MD [facility] Medical 04/22/2020 12:00:00 AM EDT [facility] ([facility]) Ministerio Fagan MD: [address] [place] [address], Ph. Attender: Ministerio Fagan MD [facility] Medical 04/22/2020 12:00:00 AM EDT [facility] ([facility]) Ministerio Fagan MD: [address] [place] [address], Ph. Attender: Ministerio Fagan MD [facility] Medical 04/22/2020 12:00:00 AM EDT [facility] ([facility]) Jacy Stevearely Childers, SUPERVISOR [employer]ENTRAL SUPPLY: [id number], [address], [place] [address], Ph. Attender: Jacy Childers [facility] - [facility] - Main Office 04/22/2020 12:00:00 AM EDT ATHE NA ([facility]) Ministerio Fagan MD: [address] [place] [address], Ph. Attender: Ministerio Fagan MD [facility] Medical 04/22/2020 12:00:00 AM EDT [facility] ([facility]) Ministerio Fagan MD: [address] [place] [address], Ph. Attender: Ministerio Fagan MD [facility] Medical 04/22/2020 12:00:00 AM EDT [facility] ([facility]) Ministerio Fagan MD: [address] [place] [address], Ph. Attender: Ministerio Fagan MD [facility] Medical 04/22/2020 12:00:00 AM EDT [facility] ([facility]) Ministerio Fagan MD: [address] [place] [address], Ph. Attender: Ministerio Fagan MD [facility] Medical 04/22/2020 12:00:00 AM EDT [facility] ([facility]) Ministerio Fagna MD: [address] [place] [address], Ph. Attender: Ministerio Fagan MD [facility] Medical 04/22/2020 12:00:00 AM EDT [facility] ([facility]) Ministerio Fagan MD: [address] [place] [address], Ph. Attender: Ministerio Fagan MD [facility] Medical 04/22/2020 12:00:00 AM EDT [facility] ([facility]) Ministerio Fagan MD: [address] [place] [address], Ph. Attender: Ministerio Fagan MD [facility] Medical 04/22/2020 12:00:00 AM EDT [facility] ([facility]) Ministerio Fagan MD: [address] [place] [address], Ph. Attender: Ministerio Fagan MD [facility] Medical 04/22/2020 12:00:00 AM EDT [facility] ([facility]) Ministerio Fagan MD: [address] [place] [address], Ph. Attender: Ministerio Fagan MD [facility] Medical 04/22/2020 12:00:00 AM EDT [facility] ([facility]) Ministerio Fagan MD: [address] [place] [address], Ph. Attender: Ministerio Fagan MD [facility] Medical 04/22/2020 12:00:00 AM EDT [facility] ([facility]) Ministerio Fagan MD: [address] [place] [address], Ph. Attender: Ministerio Fagan MD [place] [facility] Medical 04/22/2020 12:00:00 AM EDT [facility] ([facility]) Emergency Attender: ERON DAVILAConsultant: Domonique ernst MD 04/19/2020 11:16:00 PM EDT - 04/20/2020 12:57:00 AM EDT [facility] Patient discharged. Outpatient Attender: Dori HARLEY FP 04/13/2020 04:4 3:00 PM EDT [facility] Outpatient Attender: CRICKET HARLEY FP 04/09/2020 09:28:01 A M EDT [facility] Outpatient Attender: Dori HARLEY FP 04/09/2020 09:2 8:00 AM EDT [facility] Outpatient Attender: CRICKET HARLEY FP 04/09/2020 08:41:05 A M EDT [facility] Outpatient Attender: Ines mcneil 03/29/2020 07:05:00 PM EDT [facility] ([facility]) Outpatient Attender: Arron JONCConsultant: Domonique Shell MDConsultant: Arron Machuca PA-C 01/17/2018 11:13:18 AM ED T [facility] Immunizations Vaccine Date Status Description Data Source(s) COVID-19 VACCINE Moderna 12/22/2020 12:00:00 AM EDT completed [facility] Vaccine Series Complete: YESThis Data wa s Submitted to [facility] Via Contractually. COVID-19 VACCINE Moderna 11/24/2020 12:00:00 AM EDT completed [facility] Vaccine Series Complete: NOThis Data was Submitted to [facility] Via Contractually. New in 2011. IIV4 05/12/2020 05:39:00 PM EST completed .5 mL [facility] ([facility]) New in 2011. IIV4 05/12/2020 05:39:00 PM EST completed .5 mL [facility] ([facility]) New in 2011. IIV4 05/12/2020 05:39:00 PM EST completed .5 mL [facility] ([facility]) New in 2011. IIV4 05/12/2020 05:39:00 PM EST completed .5 mL [facility] ([facility]) New in 2011. IIV4 05/12/2020 05:39:00 PM EST completed .5 mL [facility] ([facility]) New in 2011. IIV4 05/12/2020 05:39:00 PM EST completed .5 mL [facility] ([facility]) New in 2011. IIV4 05/12/2020 05:39:00 PM EST completed .5 mL [facility] ([facility]) New in 2011. IIV4 05/12/2020 05:39:00 PM EST completed .5 mL [facility] ([facility]) New in 2011. IIV4 05/12/2020 05:39:00 PM EST completed .5 mL [facility] ([facility]) New in 2011. IIV4 05/12/2020 05:39:00 PM EST completed .5 mL [facility] ([facility]) New in 2011. IIV4 05/12/2020 05:39:00 PM EST completed .5 mL [facility] ([facility]) New in 2011. IIV4 05/12/2020 05:39:00 PM EST completed .5 mL [facility] ([facility]) Medications Medication Brand Name Start Date [...] MORNING FOR 30 DAYS SOLD: 03/21/2021 [facility] Trujillo Escitalopram 10 MG Oral Tablet [Lexapro] Lexapro 10 mg tablet Take 1 tablet every day by oral route in the morning for 30 days. Lexapro 10 mg tablet Take 1 tablet every day by oral route in the morning for 30 days. 02/14/2021 12:00:00 AM EDT 1 completed escitalopram 1 0 MG Oral Tablet [Lexapro] [facility] ([facility]) 50 mg 01/07/2021 12:00:00 AM [...] TABLET BY MOUTH EVERY DAY SOLD: 09/04/2020 [facility] 50 mg 05/12/2020 12:00:00 AM EST tablet 15 TAKE ONE TABLET BY MOUTH EVERY DAY TAKE ONE TABLET BY MOUTH EVERY DAY SOLD: 05/12/2020 [facility] Paroxetine Hydrochloride 10 MG Oral Tablet PAROXETINE HCL 05/12/2020 12:00:00 AM EST tablet 30 TAKE ONE TABLET BY MOUTH CODIE TAKE ONE TABLET BY MOUTH EVERY DAY SOLD: 05/12/2020 [facility] 50 mg 05/12/2020 12:00:00 AM [...] Medications 03/29/2020 12:00:00 AM EDT completed [facility] ([facility]) Prednisone 20 MG Oral Tablet Prednisone 03/29/2020 12:00:00 AM EDT ORAL active [facility] ([facility]) 60 ACTUAT Albuterol 0.09 MG/ACTUAT Metered Dose Inhaler Albu terol Sulfate HFA 03/29/2020 12:00:00 AM EDT RESPIRATORY active [facility] ([facility]) Amoxicillin 875 MG / Clavulanate 125 MG Oral Tablet Am oxicillin/Clavulanate Potassium 03/29/2020 12:00:00 AM EDT ORAL active [facility] ([facility]) 20 mg 03/29/2020 12:00:00 AM EDT tablet 10 TAKE ONE TABLET BY MOUTH TWICE A DAY FOR 5 DAYS TAKE ONE TABLET BY MOUTH TWICE A DAY FOR 5 DAYS SOLD: 2019 [facility] 90 mcg/actuation 02/13/2020 12:00:00 AM EDT HFA aerosol inha ler 8 INHALE TWO PUFFS BY MOUTH EVERY 4 HOURS NEEDED MAXIMUM DAILY DOSE = 8 PUFFS INHALE TWO PUFFS BY MOUTH EVERY 4 HOURS NEEDED MAXIMUM DAILY DOSE = 8 PUFFS SOLD: 03/31/2020 [facility] 40 mg 02/13/2020 12:00:00 AM EDT capsule,delayed release (DR/EC) 60 TAKE ONE CAPSULE BY MOUTH TWICE A DAY TAKE ONE CAPSULE BY MOUTH TWICE A DAY SOLD: 03/31/2020 [facility] albuterol sulfate HFA 90 mcg/actuation aerosol inhaler [id number] completed [id number] 200 ACTUAT albuterol 0.09 MG/ACTUAT Metered Dose Inhaler [facility]) Prednisone 20 MG Oral Tablet prednisone 20 mg tablet prednisone 20 mg tablet completed prednisone 20 MG Oral Tablet [facility]) Cyclobenzaprine hydrochloride 10 MG Oral Tablet cyclob enzaprine 10 mg tablet cyclobenzaprine 10 mg tablet completed cyclobenzaprine hydrochloride 10 MG Oral Tablet [facility]) tizanidine 4 MG Oral Capsule tizanidine 4 mg capsule tizanidine 4 mg capsule completed tizanidine 4 M G Oral Capsule [facility]) Ketorolac Tromethamine 10 MG Oral Tablet ketorolac 10 mg tablet ketorolac 10 mg tablet completed ketorolac trome thamine 10 MG Oral Tablet [facility]) lidocaine 5 % topical patch [id number] com pleted lidocaine 0.05 MG/MG Medicated Patch [facility] ([facility]) Amoxicillin 875 MG / Clavulanate 125 MG Oral Tablet amoxicillin 875 mg-potassium clavulanate 125 mg tablet amoxicillin 875 mg-potassium clavulanate 125 mg tablet completed amoxici llin 875 MG / clavulanate 125 MG Oral Tablet [facility] ([facility]) Cyclobenzaprine hydrochloride 5 MG Oral Tablet cyclobe nzaprine 5 mg tablet cyclobenzaprine 5 mg tablet completed cyclobenzaprine hydrochloride 5 MG Oral Tablet [facility] ([facility]) Prednisone 20 MG Oral Tablet prednisone 20 mg tablet prednisone 20 mg tablet completed prednisone 20 MG Oral Tablet [facility] ([facility]) meloxicam 15 MG Oral Tablet meloxicam 15 mg tablet meloxicam 15 mg ta blet completed meloxicam 15 MG Oral Tablet [facility] ([facility]) Prednisone 20 MG Oral Tablet prednisone 20 mg tablet prednisone 20 mg tablet completed prednisone 20 MG Oral Tablet [facility] ([facility]) Ibuprofen 600 MG Oral Tablet ibuprofen 600 mg tablet ibuprofen 6 00 mg tablet completed ibuprofen 600 MG Oral Tablet [facility] ([facility]) Ibuprofen 600 MG Oral Tablet ibuprofen 6 00 mg tablet TAKE ONE TABLET BY MOUTH THREE TIMES A DAY WITH FOOD FOR PAIN ibuprofen 600 mg tablet TAKE ONE TABLET BY MOUTH THREE TIMES A DAY WITH FOOD FOR PAIN completed ibuprofen 600 MG Oral Tablet [facility] ([facility]) methylprednisolone 4 mg tablets in a dose pack [id number] completed methylprednisolone 4 mg tablets in a dose pack [facility] ([facility]) tizanidine 4 MG Oral Capsule tizanidine 4 mg capsule tizanidine 4 mg capsule completed tizanidine 4 M G Oral Capsule [facility] ([facility]) Ketorolac Tromethamine 10 MG Oral Tablet ketorolac 10 mg tablet ketorolac 10 mg tablet completed ketorolac trome thamine 10 MG Oral Tablet [facility] ([facility]) Naproxen 500 MG Oral Tablet naproxen 500 mg tablet naproxen 500 mg ta blet completed naproxen 500 MG Oral Tablet [facility] ([facility]) Prednisone 20 MG Oral Tablet prednisone 20 mg tablet prednisone 20 mg tablet completed prednisone 20 MG Oral Tablet [facility] ([facility]) methylprednisolone 4 mg tablets in a dose pack [id number] completed methylprednisolone 4 mg tablets in a dose pack [facility] ([facility]) Ketorolac Tromethamine 10 MG Oral Tablet ketorolac 10 mg tablet ketorolac 10 mg tablet completed ketorolac trome thamine 10 MG Oral Tablet [facility] ([facility]) lidocaine 5 % topical patch [id number] com pleted lidocaine 0.05 MG/MG Medicated Patch [facility] ([facility]) Amoxicillin 875 MG / Clavulanate 125 MG Oral Tablet amoxicillin 875 mg-potassium clavulanate 125 mg tablet amoxicillin 875 mg-potassium clavulanate 125 mg tablet completed amoxici llin 875 MG / clavulanate 125 MG Oral Tablet [facility] ([facility]) Carisoprodol 350 MG Oral Tablet carisoprodol 350 mg ta blet carisoprodol 350 mg tablet completed carisoprodol 35 0 MG Oral Tablet [facility] ([facility]) Ibuprofen 600 MG Oral Tablet ibuprofen 6 00 mg tablet TAKE ONE TABLET BY MOUTH THREE TIMES A DAY WITH FOOD FOR PAIN ibuprofen 600 mg tablet TAKE ONE TABLET BY MOUTH THREE TIMES A DAY WITH FOOD FOR PAIN completed ibuprofen 600 MG Oral Tablet [facility] ([facility]) Ketorolac Tromethamine 10 MG Oral Tablet ketorolac 10 mg tablet ketorolac 10 mg tablet completed ketorolac trome thamine 10 MG Oral Tablet [facility] ([facility]) Naproxen 500 MG Oral Tablet naproxen 500 mg tablet naproxen 500 mg ta blet completed naproxen 500 MG Oral Tablet [facility] ([facility]) Cyclobenzaprine hydrochloride 5 MG Oral Tablet cyclobe nzaprine 5 mg tablet cyclobenzaprine 5 mg tablet completed cyclobenzaprine hydrochloride 5 MG Oral Tablet [facility] ([facility]) Ketorolac Tromethamine 10 MG Oral Tablet ketorolac 10 mg tablet ketorolac 10 mg tablet completed ketorolac trome thamine 10 MG Oral Tablet [facility] ([facility]) Cyclobenzaprine hydrochloride 10 MG Oral Tablet cyclob enzaprine 10 mg tablet cyclobenzaprine 10 mg tablet completed cyclobenzaprine hydrochloride 10 MG Oral Tablet [facility] ([facility]) Cyclobenzaprine hydrochloride 10 MG Oral Tablet cyclob enzaprine 10 mg tablet cyclobenzaprine 10 mg tablet completed cyclobenzaprine hydrochloride 10 MG Oral Tablet [facility] ([facility]) Trazodone Hydrochloride 50 MG Oral Tablet trazodone 50 mg tablet trazodone 50 mg tablet completed trazodone hydr ochloride 50 MG Oral Tablet [facility] ([facility]) Prednisone 20 MG Oral Tablet prednisone 20 mg tablet prednisone 20 mg tablet completed prednisone 20 MG Oral Tablet [facility] ([facility]) tizanidine 4 MG Oral Capsule tizanidine 4 mg capsule tizanidine 4 mg capsule completed tizanidine 4 M G Oral Capsule [facility] ([facility]) Prednisone 20 MG Oral Tablet prednisone 20 mg tablet prednisone 20 mg tablet completed prednisone 20 MG Oral Tablet [facility] ([facility]) lidocaine 5 % topical patch [id number] com pleted lidocaine 0.05 MG/MG Medicated Patch [facility] ([facility]) Cyclobenzaprine hydrochloride 5 MG Oral Tablet cyclobe nzaprine 5 mg tablet cyclobenzaprine 5 mg tablet completed cyclobenzaprine hydrochloride 5 MG Oral Tablet [facility] ([facility]) Amoxicillin 875 MG / Clavulanate 125 MG Oral Tablet amoxicillin 875 mg-potassium clavulanate 125 mg tablet amoxicillin 875 mg-potassium clavulanate 125 mg tablet completed amoxici llin 875 MG / clavulanate 125 MG Oral Tablet [facility] ([facility]) Amoxicillin 875 MG / Clavulanate 125 MG Oral Tablet amoxicillin 875 mg-potassium clavulanate 125 mg tablet amoxicillin 875 mg-potassium clavulanate 125 mg tablet completed amoxici llin 875 MG / clavulanate 125 MG Oral Tablet [facility] ([facility]) Amoxicillin 875 MG / Clavulanate 125 MG Oral Tablet amoxicillin 875 mg-potassium clavulanate 125 mg tablet amoxicillin 875 mg-potassium clavulanate 125 mg tablet completed amoxici llin 875 MG / clavulanate 125 MG Oral Tablet [facility] ([facility]) Carisoprodol 350 MG Oral Tablet carisoprodol 350 mg ta blet carisoprodol 350 mg tablet completed carisoprodol 35 0 MG Oral Tablet [facility] ([facility]) tizanidine 4 MG Oral Capsule tizanidine 4 mg capsule tizanidine 4 mg capsule completed tizanidine 4 M G Oral Capsule [facility] ([facility]) Cyclobenzaprine hydrochloride 10 MG Oral Tablet cyclob enzaprine 10 mg tablet cyclobenzaprine 10 mg tablet completed cyclobenzaprine hydrochloride 10 MG Oral Tablet [facility] ([facility]) lidocaine 5 % topical patch [id number] com pleted lidocaine 0.05 MG/MG Medicated Patch [facility] ([facility]) Naproxen 500 MG Oral Tablet naproxen 500 mg tablet naproxen 500 mg ta blet completed naproxen 500 MG Oral Tablet [facility] ([facility]) Amoxicillin 875 MG / Clavulanate 125 MG Oral Tablet amoxicillin 875 mg-potassium clavulanate 125 mg tablet amoxicillin 875 mg-potassium clavulanate 125 mg tablet completed amoxici llin 875 MG / clavulanate 125 MG Oral Tablet [facility] ([facility]) tizanidine 4 MG Oral Capsule tizanidine 4 mg capsule tizanidine 4 mg capsule completed tizanidine 4 M G Oral Capsule [facility] ([facility]) tizanidine 4 MG Oral Capsule tizanidine 4 mg capsule tizanidine 4 mg capsule completed tizanidine 4 M G Oral Capsule [facility] ([facility]) tizanidine 4 MG Oral Capsule tizanidine 4 mg capsule tizanidine 4 mg capsule completed tizanidine 4 M G Oral Capsule [facility] ([facility]) methylprednisolone 4 mg tablets in a dose pack [id number] completed methylprednisolone 4 mg tablets in a dose pack [facility] ([facility]) tizanidine 4 MG Oral Capsule tizanidine 4 mg capsule tizanidine 4 mg capsule completed tizanidine 4 M G Oral Capsule [facility] ([facility]) albuterol sulfate HFA 90 mcg/actuation aerosol inhaler [id number] completed [id number] 200 ACTUAT albuterol 0.09 MG/ACTUAT Metered Dose Inhaler [facility] ([facility]) Ketorolac Tromethamine 10 MG Oral Tablet ketorolac 10 mg tablet ketorolac 10 mg tablet completed ketorolac trome thamine 10 MG Oral Tablet [facility] ([facility]) Naproxen 500 MG Oral Tablet naproxen 500 mg tablet naproxen 500 mg ta blet completed naproxen 500 MG Oral Tablet [facility] ([facility]) tizanidine 4 MG Oral Capsule tizanidine 4 mg capsule tizanidine 4 mg capsule completed tizanidine 4 M G Oral Capsule [facility] ([facility]) Acetaminophen 325 MG / Oxycodone [...] / oxycodone hydrochloride 5 MG Oral Tablet [facility] ([facility]) tizanidine 4 MG Oral Capsule tizanidine 4 mg capsule tizanidine 4 mg capsule completed tizanidine 4 M G Oral Capsule [facility] ([facility]) meloxicam 15 MG Oral Tablet meloxicam 15 mg tablet Take 1 tablet every day by oral route. meloxicam 15 mg tablet Take 1 tablet every day by oral route. 1 completed meloxicam 15 MG Oral Tablet [facility] ([facility]) Trazodone Hydrochloride 50 MG Oral Tablet trazodone 50 mg tablet trazodone 50 mg tablet completed trazodone hydr ochloride 50 MG Oral Tablet [facility] ([facility]) Cyclobenzaprine hydrochloride 10 MG Oral Tablet cyclob enzaprine 10 mg tablet cyclobenzaprine 10 mg tablet completed cyclobenzaprine hydrochloride 10 MG Oral Tablet [facility] ([facility]) Ibuprofen 600 MG Oral Tablet ibuprofen 6 00 mg tablet TAKE ONE TABLET BY MOUTH THREE TIMES A DAY WITH FOOD FOR PAIN ibuprofen 600 mg tablet TAKE ONE TABLET BY MOUTH THREE TIMES A DAY WITH FOOD FOR PAIN completed ibuprofen 600 MG Oral Tablet [facility] ([facility]) Carisoprodol 350 MG Oral Tablet carisoprodol 350 mg ta blet carisoprodol 350 mg tablet completed carisoprodol 35 0 MG Oral Tablet [facility] ([facility]) Amoxicillin 875 MG / Clavulanate 125 MG Oral Tablet amoxicillin 875 mg-potassium clavulanate 125 mg tablet amoxicillin 875 mg-potassium clavulanate 125 mg tablet completed amoxici llin 875 MG / clavulanate 125 MG Oral Tablet [facility] ([facility]) Naproxen 500 MG Oral Tablet naproxen 500 mg tablet naproxen 500 mg ta blet completed naproxen 500 MG Oral Tablet [facility] ([facility]) Prednisone 20 MG Oral Tablet prednisone 20 mg tablet prednisone 20 mg tablet completed prednisone 20 MG Oral Tablet [facility] ([facility]) Ibuprofen 600 MG Oral Tablet ibuprofen 600 mg tablet ibuprofen 6 00 mg tablet completed ibuprofen 600 MG Oral Tablet [facility] ([facility]) Cyclobenzaprine hydrochloride 10 MG Oral Tablet cyclob enzaprine 10 mg tablet cyclobenzaprine 10 mg tablet completed cyclobenzaprine hydrochloride 10 MG Oral Tablet [facility] ([facility]) Trazodone Hydrochloride 50 MG Oral Tablet trazodone 50 mg tablet trazodone 50 mg tablet completed trazodone hydr ochloride 50 MG Oral Tablet [facility] ([facility]) albuterol sulfate HFA 90 mcg/actuation aerosol inhaler [id number] completed [id number] 200 ACTUAT albuterol 0.09 MG/ACTUAT Metered Dose Inhaler [facility] ([facility]) Ibuprofen 600 MG Oral Tablet ibuprofen 600 mg tablet ibuprofen 6 00 mg tablet completed ibuprofen 600 MG Oral Tablet [facility] ([facility]) methylprednisolone 4 mg tablets in a dose pack [id number] completed methylprednisolone 4 mg tablets in a dose pack [facility] ([facility]) Ibuprofen 600 MG Oral Tablet ibuprofen 6 00 mg tablet TAKE ONE TABLET BY MOUTH THREE TIMES A DAY WITH FOOD FOR PAIN ibuprofen 600 mg tablet TAKE ONE TABLET BY MOUTH THREE TIMES A DAY WITH FOOD FOR PAIN completed ibuprofen 600 MG Oral Tablet [facility] ([facility]) tizanidine 4 MG Oral Capsule tizanidine 4 mg capsule tizanidine 4 mg capsule completed tizanidine 4 M G Oral Capsule [facility] ([facility]) paroxetine 10 mg tablet TAKE ONE TABLET BY MOUTH EVERY DAY [id number] completed paroxetine hydrochloride 10 MG O ral Tablet [facility] ([facility]) albuterol sulfate HFA 90 mcg/actuation aerosol inhaler [id number] completed [id number] 200 ACTUAT albuterol 0.09 MG/ACTUAT Metered Dose Inhaler [facility] ([facility]) Ketorolac Tromethamine 10 MG Oral Tablet ketorolac 10 mg tablet ketorolac 10 mg tablet completed ketorolac trome thamine 10 MG Oral Tablet [facility] ([facility]) tizanidine 4 MG Oral Capsule tizanidine 4 mg capsule tizanidine 4 mg capsule completed tizanidine 4 M G Oral Capsule [facility] ([facility]) methylprednisolone 4 mg tablets in a dose pack [id number] completed methylprednisolone 4 mg tablets in a dose pack [facility] ([facility]) meloxicam 15 MG Oral Tablet meloxicam 15 mg tablet meloxicam 15 mg ta blet completed meloxicam 15 MG Oral Tablet [facility] ([facility]) Cyclobenzaprine hydrochloride 10 MG Oral Tablet cyclob enzaprine 10 mg tablet cyclobenzaprine 10 mg tablet completed cyclobenzaprine hydrochloride 10 MG Oral Tablet [facility] ([facility]) Ketorolac Tromethamine 10 MG Oral Tablet ketorolac 10 mg tablet ketorolac 10 mg tablet completed ketorolac trome thamine 10 MG Oral Tablet [facility] ([facility]) Cyclobenzaprine hydrochloride 5 MG Oral Tablet cyclobenzaprine 5 mg tablet TAKE 1 TABLET 5MG BY MOUTH THREE TIMES A DAY NEEDED FOR BACK PAIN cyclobenzaprine 5 mg tablet TAKE 1 TABLET 5MG BY MOUTH THREE TIMES A DAY NEEDED FOR BACK PAIN completed cyclobenzaprine hydrochloride 5 MG Oral Tablet [facility] ([facility]) meloxicam 15 MG Oral Tablet meloxicam 15 mg tablet Take 1 tablet every day by oral route. meloxicam 15 mg tablet Take 1 tablet every day by oral route. 1 completed meloxicam 15 MG Oral Tablet [facility] ([facility]) Carisoprodol 350 MG Oral Tablet carisoprodol 350 mg ta blet carisoprodol 350 mg tablet completed carisoprodol 35 0 MG Oral Tablet R[facility] ([facility]) Cyclobenzaprine hydrochloride 5 MG Oral Tablet cyclobe nzaprine 5 mg tablet cyclobenzaprine 5 mg tablet completed cyclobenzaprine hydrochloride 5 MG Oral Tablet [facility] ([facility]) Ketorolac Tromethamine 10 MG Oral Tablet ketorolac 10 mg tablet ketorolac 10 mg tablet completed ketorolac trome thamine 10 MG Oral Tablet [facility] ([facility]) Amoxicillin 875 MG / Clavulanate 125 MG Oral Tablet amoxicillin 875 mg-potassium clavulanate 125 mg tablet amoxicillin 875 mg-potassium clavulanate 125 mg tablet completed amoxici llin 875 MG / clavulanate 125 MG Oral Tablet MAHNAZ ([facility]) Cyclobenzaprine hydrochloride 5 MG Oral Tablet cyclobenzaprine 5 mg tablet TAKE 1 TABLET 5MG BY MOUTH THREE TIMES A DAY NEEDED FOR BACK PAIN cyclobenzaprine 5 mg tablet TAKE 1 TABLET 5MG BY MOUTH THREE TIMES A DAY NEEDED FOR BACK PAIN completed cyclobenzaprine hydrochloride 5 MG Oral Tablet MAH[facility]Z ([facility]) Carisoprodol 350 MG Oral Tablet carisoprodol 350 mg ta blet carisoprodol 350 mg tablet completed carisoprodol 35 0 MG Oral Tablet [facility] ([facility]) Naproxen 500 MG Oral Tablet naproxen 500 mg tablet naproxen 500 mg ta blet completed naproxen 500 MG Oral Tablet [facility] ([facility]) Carisoprodol 350 MG Oral Tablet carisoprodol 350 mg ta blet carisoprodol 350 mg tablet completed carisoprodol 35 0 MG Oral Tablet MAH[facility]Z ([facility]) Ketorolac Tromethamine 10 MG Oral Tablet ketorolac 10 mg tablet ketorolac 10 mg tablet completed ketorolac trome thamine 10 MG Oral Tablet [facility] ([facility]) Ibuprofen 600 MG Oral Tablet ibuprofen 600 mg tablet ibuprofen 6 00 mg tablet completed ibuprofen 600 MG Oral Tablet [facility] ([facility]) Cyclobenzaprine hydrochloride 5 MG Oral Tablet cyclobe nzaprine 5 mg tablet cyclobenzaprine 5 mg tablet completed cyclobenzaprine hydrochloride 5 MG Oral Tablet [facility] ([facility]) Prednisone 20 MG Oral Tablet prednisone 20 mg tablet prednisone 20 mg tablet completed prednisone 20 MG Oral Tablet [facility] ([facility]) Cyclobenzaprine hydrochloride 10 MG Oral Tablet cyclob enzaprine 10 mg tablet cyclobenzaprine 10 mg tablet completed cyclobenzaprine hydrochloride 10 MG Oral Tablet [facility] ([facility]) meloxicam 15 MG Oral Tablet meloxicam 15 mg tablet meloxicam 15 mg ta blet completed meloxicam 15 MG Oral Tablet [facility] ([facility]) Naproxen 500 MG Oral Tablet naproxen 500 mg tablet naproxen 500 mg ta blet completed naproxen 500 MG Oral Tablet [facility] ([facility]) tizanidine 4 MG Oral Capsule tizanidine 4 mg capsule tizanidine 4 mg capsule completed tizanidine 4 M G Oral Capsule [facility] ([facility]) Amoxicillin 875 MG / Clavulanate 125 MG Oral Tablet amoxicillin 875 mg-potassium clavulanate 125 mg tablet amoxicillin 875 mg-potassium clavulanate 125 mg tablet completed amoxici llin 875 MG / clavulanate 125 MG Oral Tablet [facility] ([facility]) Carisoprodol 350 MG Oral Tablet carisoprodol 350 mg ta blet carisoprodol 350 mg tablet completed carisoprodol 35 0 MG Oral Tablet [facility] ([facility]) Cyclobenzaprine hydrochloride 5 MG Oral Tablet cyclobe nzaprine 5 mg tablet cyclobenzaprine 5 mg tablet completed cyclobenzaprine hydrochloride 5 MG Oral Tablet [facility] ([facility]) Cyclobenzaprine hydrochloride 5 MG Oral Tablet cyclobenzaprine 5 mg tablet TAKE 1 TABLET 5MG BY MOUTH THREE TIMES A DAY NEEDED FOR BACK PAIN cyclobenzaprine 5 mg tablet TAKE 1 TABLET 5MG BY MOUTH THREE TIMES A DAY NEEDED FOR BACK PAIN completed cyclobenzaprine hydrochloride 5 MG Oral Tablet [facility] ([facility]) Ketorolac Tromethamine 10 MG Oral Tablet ketorolac 10 mg tablet ketorolac 10 mg tablet completed ketorolac trome thamine 10 MG Oral Tablet [facility] ([facility]) Prednisone 20 MG Oral Tablet prednisone 20 mg tablet prednisone 20 mg tablet completed prednisone 20 MG Oral Tablet [facility] ([facility]) albuterol sulfate HFA 90 mcg/actuation aerosol inhaler [id number] completed [id number] 200 ACTUAT albuterol 0.09 MG/ACTUAT Metered Dose Inhaler [facility] ([facility]) meloxicam 15 MG Oral Tablet meloxicam 15 mg tablet Take 1 tablet every day by oral route. meloxicam 15 mg tablet Take 1 tablet every day by oral route. 1 completed meloxicam 15 MG Oral Tablet [facility] ([facility]) Cyclobenzaprine hydrochloride 5 MG Oral Tablet cyclobenzaprine 5 mg tablet TAKE 1 TABLET 5MG BY MOUTH THREE TIMES A DAY NEEDED FOR BACK PAIN cyclobenzaprine 5 mg tablet TAKE 1 TABLET 5MG BY MOUTH THREE TIMES A DAY NEEDED FOR BACK PAIN completed cyclobenzaprine hydrochloride 5 MG Oral Tablet [facility] ([facility]) Naproxen 500 MG Oral Tablet naproxen 500 mg tablet naproxen 500 mg ta blet completed naproxen 500 MG Oral Tablet [facility] ([facility]) Cyclobenzaprine hydrochloride 10 MG Oral Tablet cyclob enzaprine 10 mg tablet cyclobenzaprine 10 mg tablet completed cyclobenzaprine hydrochloride 10 MG Oral Tablet [facility] ([facility]) Ketorolac Tromethamine 10 MG Oral Tablet ketorolac 10 mg tablet ketorolac 10 mg tablet completed ketorolac trome thamine 10 MG Oral Tablet [facility] ([facility]) Naproxen 500 MG Oral Tablet naproxen 500 mg tablet naproxen 500 mg ta blet completed naproxen 500 MG Oral Tablet [facility] ([facility]) methylprednisolone 4 mg tablets in a dose pack [id number] completed methylprednisolone 4 mg tablets in a dose pack [facility] ([facility]) Acetaminophen 325 MG / Oxycodone [...] / oxycodone hydrochloride 5 MG Oral Tablet [facility] ([facility]) paroxetine 10 mg tablet TAKE ONE TABLET BY MOUTH EVERY DAY [id number] completed paroxetine hydrochloride 10 MG O ral Tablet MAH[facility]Z ([facility]) lidocaine 5 % topical patch [id number] com pleted lidocaine 0.05 MG/MG Medicated Patch [facility]HAN[facility] ([facility]) methylprednisolone 4 mg tablets in a dose pack [id number] completed methylprednisolone 4 mg tablets in a dose pack [facility] ([facility]) meloxicam 15 MG Oral Tablet meloxicam 15 mg tablet meloxicam 15 mg ta blet completed meloxicam 15 MG Oral Tablet [facility] ([facility]) lidocaine 5 % topical patch [id number] com pleted lidocaine 0.05 MG/MG Medicated Patch [facility] ([facility]) Prednisone 20 MG Oral Tablet prednisone 20 mg tablet prednisone 20 mg tablet completed prednisone 20 MG Oral Tablet [facility] ([facility]) Amoxicillin 875 MG / Clavulanate 125 MG Oral Tablet amoxicillin 875 mg-potassium clavulanate 125 mg tablet amoxicillin 875 mg-potassium clavulanate 125 mg tablet completed amoxici llin 875 MG / clavulanate 125 MG Oral Tablet MAH[facility]Z ([facility]) Cyclobenzaprine hydrochloride 10 MG Oral Tablet cyclob enzaprine 10 mg tablet cyclobenzaprine 10 mg tablet completed cyclobenzaprine hydrochloride 10 MG Oral Tablet [facility] ([facility]) tizanidine 4 MG Oral Capsule tizanidine 4 mg capsule tizanidine 4 mg capsule completed tizanidine 4 M G Oral Capsule [facility] ([facility]) lidocaine 5 % topical patch [id number] com pleted lidocaine 0.05 MG/MG Medicated Patch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 Gastroesophageal reflux disease without esophagitis Gastroesophageal Reflux Disease without Esophagitis Problem 04/29/2020 12:00:00 AM ED Nishant [facility] ([facility]) 843449963 Gastroesophageal reflux disease without esophagitis Gastroesophageal Reflux Disease without Esophagitis Problem 04/29/2020 12:00:00 AM ED Nishant [facility] ([facility]) 155882629 Gastroesophageal reflux disease without esophagitis Gastroesophageal Reflux Disease without Esophagitis Problem 04/29/2020 12:00:00 AM ED Nishant [facility] ([facility]) 226188837 Gastroesophageal reflux disease without esophagitis Gastroesophageal Reflux Disease without Esophagitis Problem 04/29/2020 12:00:00 AM ED Nishant JOYA ([facility]) 430804839 Gastroesophageal reflux disease without esophagitis Gastroesophageal Reflux Disease without Esophagitis Problem 04/29/2020 12:00:00 AM ED T [facility] ([facility]) 709714009 Gastroesophageal reflux disease without esophagitis Gastroesophageal Reflux Disease without Esophagitis Problem 04/29/2020 12:00:00 AM ED T [facility] ([facility]) 113031422 Gastroesophageal reflux disease without esophagitis Gastroesophageal Reflux Disease without Esophagitis Problem 04/29/2020 12:00:00 AM ED T [facility] ([facility]) 26737236 Acute bronchitis, unspecified Acute bronchitis, unspec ified 04/09/2020 09:27:37 AM EDT [facility] [id number] Acute bronchitis Acute Bronchitis Problem 04/09/2020 12 :00:00 AM EDT [facility] ([facility]) 05864606 Acute bronchitis Acute Bronchitis Problem 04/09/2020 12 :00:00 AM EDT [facility] ([facility]) 52075309 Acute bronchitis Acute Bronchitis Problem 04/09/2020 12 :00:00 AM EDT [facility] ([facility]) 25248276 Acute bronchitis Acute Bronchitis Problem 04/09/2020 12 :00:00 AM EDT [facility] ([facility]) 49191310 Acute bronchitis Acute Bronchitis Problem 04/09/2020 12 :00:00 AM EDT [facility] ([facility]) 51435940 Acute bronchitis Acute Bronchitis Problem 04/09/2020 12 :00:00 AM EDT [facility] ([facility]) 53176679 Acute bronchitis Acute Bronchitis Problem 04/09/2020 12 :00:00 AM EDT [facility] ([facility]) 91893624 Acute bronchitis Acute Bronchitis Problem 04/09/2020 12 :00:00 AM EDT [facility] ([facility]) 58565031 Acute bronchitis Acute Bronchitis Problem 04/09/2020 12 :00:00 AM EDT [facility] ([facility]) 71514711 Acute bronchitis Acute Bronchitis Problem 04/09/2020 12 :00:00 AM EDT [facility] ([facility]) Surgeries/Procedures Procedure Description Date Indications Data Source(s) XR, sacrum + coccyx, 2 or more view 11/12/2020 12:00:0 0 AM EDT [facility] ([facility]) XR, thoracic spine 11/04/2020 12:00:00 AM EDT [facility] ([facility]) XR, lumbosacral spine, 2 or 3 view 11/04/2020 12:00:00 AM EDT [facility] ([facility]) XR, cervical spine, 4 or 5 view 11/04/2020 12:00:00 AM EDT [facility] ([facility]) XR, thoracic spine 11/04/2020 12:00:00 AM EDT [facility] ([facility]) XR, lumbosacral spine, 2 or 3 view 11/04/2020 12:00:00 AM EDT [facility] ([facility]) XR, cervical spine, 4 or 5 view 11/04/2020 12:00:00 AM EDT [facility] ([facility]) XR, thoracic spine 11/04/2020 12:00:00 AM EDT [facility] ([facility]) XR, lumbosacral spine, 2 or 3 view 11/04/2020 12:00:00 AM EDT [facility] ([facility]) XR, cervical spine, 4 or 5 view 11/04/2020 12:00:00 AM EDT [facility] ([facility]) XR, thoracic spine 11/04/2020 12:00:00 AM EDT [facility] ([facility]) XR, lumbosacral spine, 2 or 3 view 11/04/2020 12:00:00 AM EDT [facility] ([facility]) XR, cervical spine, 4 or 5 view 11/04/2020 12:00:00 AM EDT [facility] ([facility]) XR, thoracic spine 11/04/2020 12:00:00 AM EDT [facility] ([facility]) XR, lumbosacral spine, 2 or 3 view 11/04/2020 12:00:00 AM EDT [facility] ([facility]) XR, cervical spine, 4 or 5 view 11/04/2020 12:00:00 AM EDT [facility] ([facility]) XR, thoracic spine 11/04/2020 12:00:00 AM EDT [facility] ([facility]) XR, lumbosacral spine, 2 or 3 view 11/04/2020 12:00:00 AM EDT [facility] ([facility]) XR, cervical spine, 4 or 5 view 11/04/2020 12:00:00 AM EDT [facility] ([facility]) XR, thoracic spine 11/04/2020 12:00:00 AM EDT [facility] ([facility]) XR, lumbosacral spine, 2 or 3 view 11/04/2020 12:00:00 AM EDT [facility] ([facility]) XR, cervical spine, 4 or 5 view 11/04/2020 12:00:00 AM EDT [facility] ([facility]) XR, thoracic spine 11/04/2020 12:00:00 AM EDT [facility] ([facility]) XR, lumbosacral spine, 2 or 3 view 11/04/2020 12:00:00 AM EDT [facility] ([facility]) XR, cervical spine, 4 or 5 view 11/04/2020 12:00:00 AM EDT [facility] ([facility]) XR, shoulder, 2 or more view 06/02/2020 12:00:00 AM ES T [facility] ([facility]) XR, shoulder, 2 or more view 06/02/2020 12:00:00 AM ES T [facility] ([facility]) XR, shoulder, 2 or more view 06/02/2020 12:00:00 AM ES T [facility] ([facility]) XR, shoulder, 2 or more view 06/02/2020 12:00:00 AM ES T [facility] ([facility]) XR, shoulder, 2 or more view 06/02/2020 12:00:00 AM ES T [facility] ([facility]) XR, shoulder, 2 or more view 06/02/2020 12:00:00 AM ES T [facility] ([facility]) XR, shoulder, 2 or more view 06/02/2020 12:00:00 AM ES T [facility] ([facility]) XR, shoulder, 2 or more view 06/02/2020 12:00:00 AM ES T [facility] ([facility]) XR, shoulder, 2 or more view 06/02/2020 12:00:00 AM ES T [facility] ([facility]) XR, shoulder, 2 or more view 06/02/2020 12:00:00 AM DARVIN JOYA ([facility]) XR, shoulder, 2 or more view 06/02/2020 12:00:00 AM DARVIN JOYA ([facility]) MRI SPINAL CANAL LUMBAR W/O [...] stenosis of lumbar region with neurogenic claudication [facility] DDD (degenerative disc disease), lumbar Lumbar foraminal stenosis Chronic midline low back pain without sc iatica Spinal stenosis of lumbar region with ne urogenic claudication XR SPINE-ENTIRE THORACIC AND LUMBAR- 2 OR 3 VIEW 7208 2 <td>XR SPINE-ENTIRE THORACIC AND LUMBAR- 2 OR 3 VIEW 59412</td><td>Routine</td><td>05/07/2020 9:25 AM EST</td><td> Spinal stenosis of lumbar region with neurogenic claudication Chronic midline low back pain, unspecified whether sciatica present Lumbar foraminal stenosis DDD (degenerative disc disease), lumbar</td><td> </td> 05/07/2020 09:25:00 AM EST DDD (degenerative disc disease), lumbarL umbar foraminal stenosisChronic midline low back pain, unspecified whether sciatica presentSpinal stenosis of lumbar region with neurogenic claudication [facility] DDD (degenerative disc disease), lumbar Lumbar foraminal stenosis Chronic midline low back pain, unspecifi ed whether sciatica present Spinal stenosis of lumbar region with ne urogenic claudication RADEX SPINE LUMBOSACRAL MINIMUM 4 VIEWS <td>XR SPINE L UMBAR 4-MORE VIEWS 50181</td><td>Routine</td><td>05/07/2020 9:25 AM EST</td><td> Spinal stenosis of lumbar region with neurogenic claudication Chronic midline low back pain, unspecified whether sciatica present Lumbar foraminal stenosis DDD (degenerative disc disease), lumbar</td><td> </td> 05/07/2020 09:25:00 AM EST DDD (degenerative disc disease), lumbarL umbar foraminal stenosisChronic midline low back pain, unspecified whether sciatica presentSpinal stenosis of lumbar region with neurogenic claudication [facility] DDD (degenerative disc disease), lumbar Lumbar foraminal stenosis Chronic midline low back pain, unspecifi ed whether sciatica present Spinal stenosis of lumbar region with ne urogenic claudication RADIOLOGIC EXAMINATION PELVIS 1/2 VIEWS <td>XR PELVIS 1-2 VIEWS 66122</td><td>Routine</td><td>05/07/2020 9:17 AM EST</td><td> Spinal stenosis of lumbar region with neurogenic claudication Chronic midline low back pain, unspecified whether sciatica present Lumbar foraminal stenosis DDD (degenerative disc disease), lumbar</td><td> </td> 05/07/2020 09:17:00 AM EST DDD (degenerative disc disease), lumbarL umbar foraminal stenosisChronic midline low back pain, unspecified whether sciatica presentSpinal stenosis of lumbar region with neurogenic claudication [facility] DDD (degenerative disc disease), lumbar Lumbar foraminal stenosis Chronic midline low back pain, unspecifi ed whether sciatica present Spinal stenosis of lumbar region with ne urogenic claudication Results ID Date Data Source [id number] 05/24/2020 03:55:24 PM EST [address] [id number] Name: RAVI WARREN: 1990Sex: FOrderant Provider: AUGUSTO Valdes Prov: AUGUSTO Sanchez Provider: AUGUSTO Grimm Performed: MRI LUMBAR SPINE WO CONTRASTExam Date: 05/24/2020 15:31MRN: [id number] Number: [id number] Class: OutpatientAccount #: [id number] for Exam: L/S- spine stenosisDDD / StenosisTechnique: [...] MARLINE HOOKS On 05/24/2020 3:55 PMWorkstation ID: [id number] Name Value Range Interpretation Code Description Data Demetrice rce(s) Supporting Document(s) ID Date Data Source [id number] 05/18/2020 05:51:00 AM EST [facility] ([facility]) Name Value Range Interpretation Code Description Data Demetrice rce(s) Supporting Document(s) glucose, fasting 142 mg/dL 70-100 Above high normal Glucose, Fas ting [facility] ([facility]) creatinine for GFR 0.73 mg/dL 0.55-1.30 Creatinine for GF R [facility] ([facility]) blood urea nitrogen 5 mg/dL 7-18 Below low normal Blood Urea Nitrogen [facility] ([facility]) glomerular filtration rate > 60.0 >60 Glomerula r Filtration Rate [facility] ([facility]) potassium serum 3.6 mEq/L 3.5-5.1 Potassium Serum ATH NA ([facility]) sodium level 141 mEq/L 136-145 Sodium Level [facility] (No [facility]) carbon dioxide level 22 mEq/L 21-32 Carbon Dioxide Level [facility] ([facility]) anion gap 5 mEq/L 8-16 Below low normal Anion Gap [facility] ( [facility]) chloride level 114 mEq/L 98-107 Above high normal Chloride Level [facility] ([facility]) calcium level 8.0 mg/dL 8.5-10.1 Below low normal Calcium Level AT [facility] ([facility]) ID Date Data Source [id number] 05/18/2020 05:51:00 AM EST [facility] ([facility]) Name Value Range Interpretation Code Description Data Demetrice rce(s) Supporting Document(s) white blood count 7.7 10 4.0-10.0 White Blood Count [facility] ([facility]) hemoglobin 11.6 g/dL 12.0-15.5 Below low normal Hemoglobin [facility] ( [facility]) red blood count 3.92 10 4.00-5.40 Below low normal Red Blood Coun t [facility] ([facility]) hematocrit 36.4 % 36.0-47.0 Hematocrit [facility] ([facility]) mean corpuscular volume 92.9 fL 80.0-96.0 Mean Corpusc ular Volume [facility] ([facility]) mean corpuscular hemoglobin 29.6 pg 27.0-33.0 Mean Cor puscular Hemoglobin [facility] ([facility]) red cell distribution width 14.3 % 11.5-14.5 Red Cell Distribution Width [facility] ([facility]) mean corpuscular HGB conc 31.9 g/dL 32.0-36.5 Below low eduardo l Mean Corpuscular HGB Conc [facility] ([facility]) platelet count, automated 228 10 150-450 Platelet C ount, Automated [facility] ([facility]) nucleated red blood cell % 0.0 % 0-0 Nucleated Red Blood Cell % [facility] ([facility]) ID Date Data Source [id number] 05/18/2020 05:51:00 AM EST [facility] ([facility]) Name Value Range Interpretation Code Description Data Demetrice rce(s) Supporting Document(s) glucose, fasting 142 mg/dL 70-100 Above high normal Glucose, Fas ting [facility] ([facility]) creatinine for GFR 0.73 mg/dL 0.55-1.30 Creatinine for GF R [facility] ([facility]) blood urea nitrogen 5 mg/dL 7-18 Below low normal Blood Urea Nitrogen [facility] ([facility]) potassium serum 3.6 mEq/L 3.5-5.1 Potassium Serum ATH NA ([facility]) sodium level 141 mEq/L 136-145 Sodium Level [facility] (No [facility]) glomerular filtration rate > 60.0 >60 Glomerula r Filtration Rate [facility] ([facility]) chloride level 114 mEq/L 98-107 Above high normal Chloride Level [facility] ([facility]) carbon dioxide level 22 mEq/L 21-32 Carbon Dioxide Level [facility] ([facility]) calcium level 8.0 mg/dL 8.5-10.1 Below low normal Calcium Level AT [facility]) anion gap 5 mEq/L 8-16 Below low normal Anion Gap [facility] ( [facility]) ID Date Data Source [id number] 05/18/2020 05:51:00 AM EST [facility] ([facility]) Name Value Range Interpretation Code Description Data Demetrice rce(s) Supporting Document(s) white blood count 7.7 10 4.0-10.0 White Blood Count [facility] ([facility]) hematocrit 36.4 % 36.0-47.0 Hematocrit [facility] ([facility]) hemoglobin 11.6 g/dL 12.0-15.5 Below low normal Hemoglobin [facility] ( [facility]) red blood count 3.92 10 4.00-5.40 Below low normal Red Blood Coun t [facility] ([facility]) mean corpuscular volume 92.9 fL 80.0-96.0 Mean Corpusc ular Volume [facility] ([facility]) mean corpuscular hemoglobin 29.6 pg 27.0-33.0 Mean Cor puscular Hemoglobin [facility] ([facility]) red cell distribution width 14.3 % 11.5-14.5 Red Cell Distribution Width [facility] ([facility]) platelet count, automated 228 10 150-450 Platelet C ount, Automated [facility] ([facility]) mean corpuscular HGB conc 31.9 g/dL 32.0-36.5 Below low eduardo l Mean Corpuscular HGB Conc [facility] ([facility]) nucleated red blood cell % 0.0 % 0-0 Nucleated Red Blood Cell % [facility] ([facility]) ID Date Data Source [id number] 05/18/2020 05:51:00 AM EST [facility] ([facility]) Name Value Range Interpretation Code Description Data Demetrice rce(s) Supporting Document(s) glucose, fasting 142 mg/dL 70-100 Above high normal Glucose, Fas ting [facility] ([facility]) blood urea nitrogen 5 mg/dL 7-18 Below low normal Blood Urea Nitrogen [facility] ([facility]) creatinine for GFR 0.73 mg/dL 0.55-1.30 Creatinine for GF R [facility] ([facility]) glomerular filtration rate > 60.0 >60 Glomerula r Filtration Rate [facility] ([facility]) potassium serum 3.6 mEq/L 3.5-5.1 Potassium Serum ATH NA ([facility]) sodium level 141 mEq/L 136-145 Sodium Level [facility] ([facility]) chloride level 114 mEq/L 98-107 Above high normal Chloride Level [facility] ([facility]) carbon dioxide level 22 mEq/L 21-32 Carbon Dioxide Level [facility] ([facility]) anion gap 5 mEq/L 8-16 Below low normal Anion Gap [facility] ( [facility]) calcium level 8.0 mg/dL 8.5-10.1 Below low normal Calcium Level AT [facility] ([facility]) ID Date Data Source [id number] 05/18/2020 05:51:00 AM EST [facility] ([facility]) Name Value Range Interpretation Code Description Data Demetrice rce(s) Supporting Document(s) white blood count 7.7 10 4.0-10.0 White Blood Count [facility] ([facility]) hemoglobin 11.6 g/dL 12.0-15.5 Below low normal Hemoglobin [facility] ( [facility]) red blood count 3.92 10 4.00-5.40 Below low normal Red Blood Coun t [facility] ([facility]) mean corpuscular hemoglobin 29.6 pg 27.0-33.0 Mean Cor puscular Hemoglobin [facility] ([facility]) mean corpuscular volume 92.9 fL 80.0-96.0 Mean Corpusc ular Volume [facility] ([facility]) hematocrit 36.4 % 36.0-47.0 Hematocrit [facility] ([facility]) mean corpuscular HGB conc 31.9 g/dL 32.0-36.5 Below low eduardo l Mean Corpuscular HGB Conc [facility] ([facility]) platelet count, automated 228 10 150-450 Platelet C ount, Automated [facility] ([facility]) red cell distribution width 14.3 % 11.5-14.5 Red Cell Distribution Width [facility] ([facility]) nucleated red blood cell % 0.0 % 0-0 Nucleated Red Blood Cell % [facility] ([facility]) ID Date Data Source [id number] 05/18/2020 05:51:00 AM EST [facility] ([facility]) Name Value Range Interpretation Code Description Data Demetrice rce(s) Supporting Document(s) glucose, fasting 142 mg/dL 70-100 Above high normal Glucose, Fas ting [facility] ([facility]) blood urea nitrogen 5 mg/dL 7-18 Below low normal Blood Urea Nitrogen [facility] ([facility]) sodium level 141 mEq/L 136-145 Sodium Level [facility] (No [facility]) glomerular filtration rate > 60.0 >60 Glomerula r Filtration Rate [facility] ([facility]) creatinine for GFR 0.73 mg/dL 0.55-1.30 Creatinine for GF R [facility] ([facility]) chloride level 114 mEq/L 98-107 Above high normal Chloride Level [facility] ([facility]) carbon dioxide level 22 mEq/L 21-32 Carbon Dioxide Level [facility] ([facility]) potassium serum 3.6 mEq/L 3.5-5.1 Potassium Serum ATH NA ([facility]) calcium level 8.0 mg/dL 8.5-10.1 Below low normal Calcium Level AT [facility]) anion gap 5 mEq/L 8-16 Below low normal Anion Gap [facility] ( [facility]) ID Date Data Source [id number] 05/18/2020 05:51:00 AM EST [facility] ([facility]) Name Value Range Interpretation Code Description Data Demetrice rce(s) Supporting Document(s) white blood count 7.7 10 4.0-10.0 White Blood Count [facility] ([facility]) hemoglobin 11.6 g/dL 12.0-15.5 Below low normal Hemoglobin [facility] ( [facility]) red blood count 3.92 10 4.00-5.40 Below low normal Red Blood Coun t [facility] ([facility]) hematocrit 36.4 % 36.0-47.0 Hematocrit [facility] ([facility]) mean corpuscular volume 92.9 fL 80.0-96.0 Mean Corpusc ular Volume [facility] ([facility]) mean corpuscular hemoglobin 29.6 pg 27.0-33.0 Mean Cor puscular Hemoglobin [facility] ([facility]) mean corpuscular HGB conc 31.9 g/dL 32.0-36.5 Below low eduardo l Mean Corpuscular HGB Conc [facility] ([facility]) red cell distribution width 14.3 % 11.5-14.5 Red Cell Distribution Width [facility] ([facility]) nucleated red blood cell % 0.0 % 0-0 Nucleated Red Blood Cell % [facility] ([facility]) platelet count, automated 228 10 150-450 Platelet C ount, Automated [facility] ([facility]) ID Date Data Source [id number] 05/18/2020 05:51:00 AM EST [facility]) Name Value Range Interpretation Code Description Data Demetrice rce(s) Supporting Document(s) glucose, fasting 142 mg/dL 70-100 Above high normal Glucose, Fas ting [facility] ([facility]) creatinine for GFR 0.73 mg/dL 0.55-1.30 Creatinine for GF R [facility] ([facility]) glomerular filtration rate > 60.0 >60 Glomerula r Filtration Rate [facility] ([facility]) blood urea nitrogen 5 mg/dL 7-18 Below low normal Blood Urea Nitrogen [facility] ([facility]) sodium level 141 mEq/L 136-145 Sodium Level [facility] ([facility]) carbon dioxide level 22 mEq/L 21-32 Carbon Dioxide Level [facility] ([facility]) chloride level 114 mEq/L 98-107 Above high normal Chloride Level [facility] ([facility]) potassium serum 3.6 mEq/L 3.5-5.1 Potassium Serum ATH NA ([facility]) anion gap 5 mEq/L 8-16 Below low normal Anion Gap [facility] ( [facility]) calcium level 8.0 mg/dL 8.5-10.1 Below low normal Calcium Level AT [facility]) ID Date Data Source [id number] 05/18/2020 05:51:00 AM EST [facility] ([facility]) Name Value Range Interpretation Code Description Data Demetrice rce(s) Supporting Document(s) red blood count 3.92 10 4.00-5.40 Below low normal Red Blood Coun t [facility] ([facility]) white blood count 7.7 10 4.0-10.0 White Blood Count [facility] ([facility]) hematocrit 36.4 % 36.0-47.0 Hematocrit [facility] ([facility]) hemoglobin 11.6 g/dL 12.0-15.5 Below low normal Hemoglobin [facility] ( [facility]) mean corpuscular hemoglobin 29.6 pg 27.0-33.0 Mean Cor puscular Hemoglobin [facility] ([facility]) mean corpuscular HGB conc 31.9 g/dL 32.0-36.5 Below low eduardo l Mean Corpuscular HGB Conc [facility] ([facility]) mean corpuscular volume 92.9 fL 80.0-96.0 Mean Corpusc ular Volume [facility] ([facility]) red cell distribution width 14.3 % 11.5-14.5 Red Cell Distribution Width [facility] ([facility]) platelet count, automated 228 10 150-450 Platelet C ount, Automated [facility] ([facility]) nucleated red blood cell % 0.0 % 0-0 Nucleated Red Blood Cell % [facility] ([facility]) ID Date Data Source [id number] 05/18/2020 05:51:00 AM EST [facility] ([facility]) Name Value Range Interpretation Code Description Data Demetrice rce(s) Supporting Document(s) glucose, fasting 142 mg/dL 70-100 Above high normal Glucose, Fas ting [facility] ([facility]) blood urea nitrogen 5 mg/dL 7-18 Below low normal Blood Urea Nitrogen [facility] ([facility]) creatinine for GFR 0.73 mg/dL 0.55-1.30 Creatinine for GF R [facility] ([facility]) glomerular filtration rate > 60.0 >60 Glomerula r Filtration Rate [facility] ([facility]) potassium serum 3.6 mEq/L 3.5-5.1 Potassium Serum ATHE NA ([facility]) sodium level 141 mEq/L 136-145 Sodium Level [facility] (No [facility]) anion gap 5 mEq/L 8-16 Below low normal Anion Gap [facility] ( [facility]) chloride level 114 mEq/L 98-107 Above high normal Chloride Level [facility] ([facility]) carbon dioxide level 22 mEq/L 21-32 Carbon Dioxide Level [facility] ([facility]) calcium level 8.0 mg/dL 8.5-10.1 Below low normal Calcium Level AT [facility]) ID Date Data Source [id number] 05/18/2020 05:51:00 AM EST [facility]) Name Value Range Interpretation Code Description Data Demetrice rce(s) Supporting Document(s) white blood count 7.7 10 4.0-10.0 White Blood Count [facility] ([facility]) hemoglobin 11.6 g/dL 12.0-15.5 Below low normal Hemoglobin [facility] ( [facility]) red blood count 3.92 10 4.00-5.40 Below low normal Red Blood Coun t [facility] ([facility]) hematocrit 36.4 % 36.0-47.0 Hematocrit [facility] ([facility]) mean corpuscular volume 92.9 fL 80.0-96.0 Mean Corpusc ular Volume [facility] ([facility]) mean corpuscular hemoglobin 29.6 pg 27.0-33.0 Mean Cor puscular Hemoglobin [facility] ([facility]) mean corpuscular HGB conc 31.9 g/dL 32.0-36.5 Below low eduardo l Mean Corpuscular HGB Conc [facility] ([facility]) platelet count, automated 228 10 150-450 Platelet C ount, Automated [facility] ([facility]) red cell distribution width 14.3 % 11.5-14.5 Red Cell Distribution Width [facility] ([facility]) nucleated red blood cell % 0.0 % 0-0 Nucleated Red Blood Cell % [facility] ([facility]) ID Date Data Source [id number] 05/18/2020 05:51:00 AM EST [facility] ([facility]) Name Value Range Interpretation Code Description Data Demetrice rce(s) Supporting Document(s) glucose, fasting 142 mg/dL 70-100 Above high normal Glucose, Fas ting [facility] ([facility]) creatinine for GFR 0.73 mg/dL 0.55-1.30 Creatinine for GF R [facility] ([facility]) blood urea nitrogen 5 mg/dL 7-18 Below low normal Blood Urea Nitrogen [facility] ([facility]) glomerular filtration rate > 60.0 >60 Glomerula r Filtration Rate [facility] ([facility]) sodium level 141 mEq/L 136-145 Sodium Level [facility] (No [facility]) chloride level 114 mEq/L 98-107 Above high normal Chloride Level [facility] ([facility]) potassium serum 3.6 mEq/L 3.5-5.1 Potassium Serum ATHE NA ([facility]) anion gap 5 mEq/L 8-16 Below low normal Anion Gap [facility] ( [facility]) carbon dioxide level 22 mEq/L 21-32 Carbon Dioxide Level [facility] ([facility]) calcium level 8.0 mg/dL 8.5-10.1 Below low normal Calcium Level AT [facility] ([facility]) ID Date Data Source [id number] 05/18/2020 05:51:00 AM EST [facility] ([facility]) Name Value Range Interpretation Code Description Data Demetrice rce(s) Supporting Document(s) white blood count 7.7 10 4.0-10.0 White Blood Count [facility] ([facility]) red blood count 3.92 10 4.00-5.40 Below low normal Red Blood Coun t [facility] ([facility]) hematocrit 36.4 % 36.0-47.0 Hematocrit [facility] ([facility]) mean corpuscular hemoglobin 29.6 pg 27.0-33.0 Mean Cor puscular Hemoglobin [facility] ([facility]) mean corpuscular HGB conc 31.9 g/dL 32.0-36.5 Below low eduardo l Mean Corpuscular HGB Conc [facility] ([facility]) mean corpuscular volume 92.9 fL 80.0-96.0 Mean Corpusc ular Volume [facility] ([facility]) red cell distribution width 14.3 % 11.5-14.5 Red Cell Distribution Width [facility] ([facility]) platelet count, automated 228 10 150-450 Platelet C ount, Automated [facility] ([facility]) nucleated red blood cell % 0.0 % 0-0 Nucleated Red Blood Cell % [facility] ([facility]) ID Date Data Source [id number] 05/18/2020 05:51:00 AM EST [facility]) Name Value Range Interpretation Code Description Data Demetrice rce(s) Supporting Document(s) glucose, fasting 142 mg/dL 70-100 Above high normal Glucose, Fas ting [facility] ([facility]) blood urea nitrogen 5 mg/dL 7-18 Below low normal Blood Urea Nitrogen [facility] ([facility]) glomerular filtration rate > 60.0 >60 Glomerula r Filtration Rate [facility] ([facility]) creatinine for GFR 0.73 mg/dL 0.55-1.30 Creatinine for GF R [facility] ([facility]) sodium level 141 mEq/L 136-145 Sodium Level [facility] (No [facility]) carbon dioxide level 22 mEq/L 21-32 Carbon Dioxide Level [facility] ([facility]) chloride level 114 mEq/L 98-107 Above high normal Chloride Level [facility] ([facility]) potassium serum 3.6 mEq/L 3.5-5.1 [facility] calcium level 8.0 mg/dL 8.5-10.1 Below low normal Calcium Level AT [facility]) anion gap 5 mEq/L 8-16 Below low normal Anion Gap [facility] ( [facility]) ID Date Data Source [id number] 05/18/2020 05:51:00 AM EST [facility] ([facility]) Name Value Range Interpretation Code Description Data Demetrice rce(s) Supporting Document(s) white blood count 7.7 10 4.0-10.0 White Blood Count [facility] ([facility]) hemoglobin 11.6 g/dL 12.0-15.5 Below low normal Hemoglobin [facility] ( [facility]) hematocrit 36.4 % 36.0-47.0 Hematocrit [facility] ([facility]) red blood count 3.92 10 4.00-5.40 Below low normal Red Blood Coun t [facility] ([facility]) mean corpuscular hemoglobin 29.6 pg 27.0-33.0 Mean Cor puscular Hemoglobin [facility] ([facility]) mean corpuscular volume 92.9 fL 80.0-96.0 Mean Corpusc ular Volume [facility] ([facility]) mean corpuscular HGB conc 31.9 g/dL 32.0-36.5 Below low eduardo l Mean Corpuscular HGB Conc [facility] ([facility]) red cell distribution width 14.3 % 11.5-14.5 Red Cell Distribution Width [facility] ([facility]) platelet count, automated 228 10 150-450 Platelet C ount, Automated [facility] ([facility]) nucleated red blood cell % 0.0 % 0-0 Nucleated Red Blood Cell % [facility] ([facility]) ID Date Data Source [id number] 05/18/2020 05:51:00 AM EST [facility] ([facility]) Name Value Range Interpretation Code Description Data Demetrice rce(s) Supporting Document(s) blood urea nitrogen 5 mg/dL 7-18 Below low normal Blood Urea Nitrogen [facility] ([facility]) creatinine for GFR 0.73 mg/dL 0.55-1.30 Creatinine for GF R [facility] ([facility]) glucose, fasting 142 mg/dL 70-100 Above high normal Glucose, Fas ting [facility]) potassium serum 3.6 mEq/L 3.5-5.1 Potassium Serum ATHE NA ([facility]) glomerular filtration rate > 60.0 >60 Glomerula r Filtration Rate [facility] ([facility]) sodium level 141 mEq/L 136-145 Sodium Level [facility] (No [facility]) chloride level 114 mEq/L 98-107 Above high normal Chloride Level [facility] ([facility]) carbon dioxide level 22 mEq/L 21-32 Carbon Dioxide Level [facility] ([facility]) anion gap 5 mEq/L 8-16 Below low normal Anion Gap [facility] ( [facility]) calcium level 8.0 mg/dL 8.5-10.1 Below low normal Calcium Level AT [facility] ([facility]) ID Date Data Source [id number] 05/18/2020 05:51:00 AM EST [facility]) Name Value Range Interpretation Code Description Data Demetrice rce(s) Supporting Document(s) white blood count 7.7 10 4.0-10.0 White Blood Count [facility] ([facility]) red blood count 3.92 10 4.00-5.40 Below low normal Red Blood Coun t [facility] ([facility]) hemoglobin 11.6 g/dL 12.0-15.5 Below low normal Hemoglobin [facility] ( [facility]) hematocrit 36.4 % 36.0-47.0 Hematocrit [facility] ([facility]) mean corpuscular volume 92.9 fL 80.0-96.0 Mean Corpusc ular Volume [facility] ([facility]) red cell distribution width 14.3 % 11.5-14.5 Red Cell Distribution Width [facility] ([facility]) mean corpuscular hemoglobin 29.6 pg 27.0-33.0 Mean Cor puscular Hemoglobin [facility] ([facility]) mean corpuscular HGB conc 31.9 g/dL 32.0-36.5 Below low eduardo l Mean Corpuscular HGB Conc [facility] ([facility]) nucleated red blood cell % 0.0 % 0-0 Nucleated Red Blood Cell % [facility] ([facility]) platelet count, automated 228 10 150-450 Platelet C ount, Automated [facility] ([facility]) ID Date Data Source [id number] 05/18/2020 05:51:00 AM EST [facility] ([facility]) Name Value Range Interpretation Code Description Data Demetrice rce(s) Supporting Document(s) blood urea nitrogen 5 mg/dL 7-18 Below low normal Blood Urea Nitrogen [facility] ([facility]) creatinine for GFR 0.73 mg/dL 0.55-1.30 Creatinine for GF R [facility] ([facility]) glucose, fasting 142 mg/dL 70-100 Above high normal Glucose, Fas ting [facility] ([facility]) sodium level 141 mEq/L 136-145 Sodium Level [facility] (No [facility]) glomerular filtration rate > 60.0 >60 Glomerula r Filtration Rate [facility] ([facility]) potassium serum 3.6 mEq/L 3.5-5.1 Potassium Serum ATH NA ([facility]) carbon dioxide level 22 mEq/L 21-32 Carbon Dioxide Level [facility] ([facility]) chloride level 114 mEq/L 98-107 Above high normal Chloride Level [facility] ([facility]) calcium level 8.0 mg/dL 8.5-10.1 Below low normal Calcium Level AT [facility]) anion gap 5 mEq/L 8-16 Below low normal Anion Gap [facility] ( [facility]) ID Date Data Source [id number] 05/18/2020 05:51:00 AM EST [facility] ([facility]) Name Value Range Interpretation Code Description Data Demetrice rce(s) Supporting Document(s) white blood count 7.7 10 4.0-10.0 White Blood Count [facility] ([facility]) hemoglobin 11.6 g/dL 12.0-15.5 Below low normal Hemoglobin [facility] ( [facility]) red blood count 3.92 10 4.00-5.40 Below low normal Red Blood Coun t [facility] ([facility]) mean corpuscular volume 92.9 fL 80.0-96.0 Mean Corpusc ular Volume [facility] ([facility]) mean corpuscular hemoglobin 29.6 pg 27.0-33.0 Mean Cor puscular Hemoglobin [facility] ([facility]) hematocrit 36.4 % 36.0-47.0 Hematocrit [facility] ([facility]) red cell distribution width 14.3 % 11.5-14.5 Red Cell Distribution Width [facility] ([facility]) mean corpuscular HGB conc 31.9 g/dL 32.0-36.5 Below low eduardo l Mean Corpuscular HGB Conc [facility] ([facility]) platelet count, automated 228 10 150-450 Platelet C ount, Automated [facility] ([facility]) nucleated red blood cell % 0.0 % 0-0 Nucleated Red Blood Cell % [facility] ([facility]) ID Date Data Source [id number] 05/18/2020 05:51:00 AM EST [facility] ([facility]) Name Value Range Interpretation Code Description Data Demetrice rce(s) Supporting Document(s) glucose, fasting 142 mg/dL 70-100 Above high normal Glucose, Fas ting [facility] ([facility]) creatinine for GFR 0.73 mg/dL 0.55-1.30 Creatinine for GF R [facility] ([facility]) blood urea nitrogen 5 mg/dL 7-18 Below low normal Blood Urea Nitrogen [facility] ([facility]) sodium level 141 mEq/L 136-145 Sodium Level [facility] ([facility]) glomerular filtration rate > 60.0 >60 Glomerula r Filtration Rate [facility] ([facility]) carbon dioxide level 22 mEq/L 21-32 Carbon Dioxide Level [facility] ([facility]) potassium serum 3.6 mEq/L 3.5-5.1 Potassium Serum ATH NA ([facility]) chloride level 114 mEq/L 98-107 Above high normal Chloride Level [facility] ([facility]) calcium level 8.0 mg/dL 8.5-10.1 Below low normal Calcium Level AT [facility]) anion gap 5 mEq/L 8-16 Below low normal Anion Gap [facility] ( [facility]) ID Date Data Source [id number] 05/18/2020 05:51:00 AM EST [facility] ([facility]) Name Value Range Interpretation Code Description Data Demetrice rce(s) Supporting Document(s) white blood count 7.7 10 4.0-10.0 White Blood Count [facility] ([facility]) red blood count 3.92 10 4.00-5.40 Below low normal Red Blood Coun t [facility] ([facility]) hemoglobin 11.6 g/dL 12.0-15.5 Below low normal Hemoglobin [facility] ( [facility]) mean corpuscular volume 92.9 fL 80.0-96.0 Mean Corpusc ular Volume [facility] ([facility]) hematocrit 36.4 % 36.0-47.0 Hematocrit [facility] ([facility]) red cell distribution width 14.3 % 11.5-14.5 Red Cell Distribution Width [facility] ([facility]) mean corpuscular HGB conc 31.9 g/dL 32.0-36.5 Below low eduardo l Mean Corpuscular HGB Conc [facility] ([facility]) mean corpuscular hemoglobin 29.6 pg 27.0-33.0 Mean Cor puscular Hemoglobin [facility] ([facility]) nucleated red blood cell % 0.0 % 0-0 Nucleated Red Blood Cell % [facility] ([facility]) platelet count, automated 228 10 150-450 Platelet C ount, Automated [facility] ([facility]) ID Date Data Source [id number] 05/18/2020 05:51:00 AM EST [facility] ([facility]) Name Value Range Interpretation Code Description Data Demetrice rce(s) Supporting Document(s) glucose, fasting 142 mg/dL 70-100 Above high normal Glucose, Fas ting [facility] ([facility]) blood urea nitrogen 5 mg/dL 7-18 Below low normal Blood Urea Nitrogen [facility] ([facility]) creatinine for GFR 0.73 mg/dL 0.55-1.30 Creatinine for GF R [facility] ([facility]) sodium level 141 mEq/L 136-145 Sodium Level [facility] (No [facility]) glomerular filtration rate > 60.0 >60 Glomerula r Filtration Rate [facility] ([facility]) potassium serum 3.6 mEq/L 3.5-5.1 Potassium Serum ATHE NA ([facility]) chloride level 114 mEq/L 98-107 Above high normal Chloride Level [facility] ([facility]) anion gap 5 mEq/L 8-16 Below low normal Anion Gap [facility] ( [facility]) carbon dioxide level 22 mEq/L 21-32 Carbon Dioxide Level [facility] ([facility]) calcium level 8.0 mg/dL 8.5-10.1 Below low normal Calcium Level AT [facility]) ID Date Data Source [id number] 05/18/2020 05:51:00 AM EST [facility]) Name Value Range Interpretation Code Description Data Demetrice rce(s) Supporting Document(s) white blood count 7.7 10 4.0-10.0 White Blood Count [facility] ([facility]) red blood count 3.92 10 4.00-5.40 Below low normal Red Blood Coun t [facility] ([facility]) hematocrit 36.4 % 36.0-47.0 Hematocrit [facility] ([facility]) hemoglobin 11.6 g/dL 12.0-15.5 Below low normal Hemoglobin [facility] ( [facility]) mean corpuscular hemoglobin 29.6 pg 27.0-33.0 Mean Cor puscular Hemoglobin [facility] ([facility]) mean corpuscular volume 92.9 fL 80.0-96.0 Mean Corpusc ular Volume [facility] ([facility]) red cell distribution width 14.3 % 11.5-14.5 Red Cell Distribution Width [facility] ([facility]) mean corpuscular HGB conc 31.9 g/dL 32.0-36.5 Below low eduardo l Mean Corpuscular HGB Conc [facility] ([facility]) platelet count, automated 228 10 150-450 [facility] nucleated red blood cell % 0.0 % 0-0 Nucleated Red Blood Cell % MAHNAZ ([facility]) ID Date Data Source [id number] 05/17/2020 07:10:00 AM EST MAHNAZ ([facility]) Name Value Range Interpretation Code Description Data Demetrice rce(s) Supporting Document(s) estimated average glucose 100 mg/dL 60-110 Estimated Average Glucose [facility]Z ([facility]) Hemoglobin A1c/Hemoglobin.total in Blood 5.1 % Hemoglobin a1C [facility] ([facility]) ID Date Data Source [id number] 05/17/2020 07:10:00 AM EST MA[facility]Z ([facility]) Name Value Range Interpretation Code Description Data Demetrice rce(s) Supporting Document(s) T uptake 42 % 30-39 Above high normal T Uptake MA[facility]Z ([facility]) free thyroxine index 4.3 % 1.3-4.8 Free Thyroxine Index [facility]Z ([facility]) thyroxine (T4) 10.2 ug/dL 4.5-12.0 Thyroxine (T4) MA[facility]Z ([facility]) thyroid stimulating hormone 2.310 uIU/mL 0.358-3.740 Thyroid Stimulating Hormone MAH[facility]Z ([facility]) ID Date Data Source [id number] 05/17/2020 07:10:00 AM EST MA[facility]Z ([facility]) Name Value Range Interpretation Code Description Data Demetrice rce(s) Supporting Document(s) HDL cholesterol 28 mg/dL >40 Below low normal HDL Cholestero l MAH[facility]Z ([facility]) cholesterol level 109 mg/dL <200 Cholesterol Level MA[facility]Z ([facility]) triglycerides level 66 mg/dL <150 Triglycerides Le radha MAHNAZ ([facility]) Cholesterol in LDL [Mass/volume] in Serum or Plasma 68 mg/dL <1 00 LDL Cholesterol MA[facility]Z ([facility]) cholesterol risk ratio <5 Cholesterol R isk Ratio [facility]Z ([facility]) non-HDL-C 81 mg/dL Non-hdl-c [facility] ([facility]) ID Date Data Source [id number] 05/17/2020 07:10:00 AM EST MAH[facility]Z ([facility]) Name Value Range Interpretation Code Description Data Demetrice rce(s) Supporting Document(s) Hemoglobin A1c/Hemoglobin.total in Blood 5.1 % Hemoglobin a1C [facility] ([facility]) estimated average glucose 100 mg/dL 60-110 Estimated Average Glucose [facility] ([facility]) ID Date Data Source [id number] 05/17/2020 07:10:00 AM EST MA[facility]Z ([facility]) Name Value Range Interpretation Code Description Data Demetrice rce(s) Supporting Document(s) T uptake 42 % 30-39 Above high normal T Uptake MA[facility]Z ([facility]) free thyroxine index 4.3 % 1.3-4.8 Free Thyroxine Index [facility] ([facility]) thyroxine (T4) 10.2 ug/dL 4.5-12.0 Thyroxine (T4) [facility]Z ([facility]) thyroid stimulating hormone 2.310 uIU/mL 0.358-3.740 Thyroid Stimulating Hormone [facility] ([facility]) ID Date Data Source [id number] 05/17/2020 07:10:00 AM EST [facility] ([facility]) Name Value Range Interpretation Code Description Data Demetrice rce(s) Supporting Document(s) triglycerides level 66 mg/dL <150 Triglycerides Le radha [facility] ([facility]) cholesterol level 109 mg/dL <200 Cholesterol Level [facility]Z ([facility]) HDL cholesterol 28 mg/dL >40 Below low normal HDL Cholestero l MA[facility]Z ([facility]) cholesterol risk ratio <5 Cholesterol R isk Ratio MAH[facility]Z ([facility]) non-HDL-C 81 mg/dL Non-hdl-c [facility] ([facility]) Cholesterol in LDL [Mass/volume] in Serum or Plasma 68 mg/dL <1 00 LDL Cholesterol [facility] ([facility]) ID Date Data Source [id number] 05/17/2020 07:10:00 AM EST [facility] ([facility]) Name Value Range Interpretation Code Description Data Demetrice rce(s) Supporting Document(s) Hemoglobin A1c/Hemoglobin.total in Blood 5.1 % Hemoglobin a1C [facility] ([facility]) estimated average glucose 100 mg/dL 60-110 Estimated Average Glucose [facility] ([facility]) ID Date Data Source [id number] 05/17/2020 07:10:00 AM EST [facility] ([facility]) Name Value Range Interpretation Code Description Data Demetrice rce(s) Supporting Document(s) thyroxine (T4) 10.2 ug/dL 4.5-12.0 Thyroxine (T4) [facility] ([facility]) T uptake 42 % 30-39 Above high normal T Uptake MA[facility]Z ([facility]) free thyroxine index 4.3 % 1.3-4.8 Free Thyroxine Index [facility] ([facility]) thyroid stimulating hormone 2.310 uIU/mL 0.358-3.740 Thyroid Stimulating Hormone [facility]Z ([facility]) ID Date Data Source [id number] 05/17/2020 07:10:00 AM EST [facility] ([facility]) Name Value Range Interpretation Code Description Data Demetrice rce(s) Supporting Document(s) triglycerides level 66 mg/dL <150 Triglycerides Le radha [facility]Z ([facility]) cholesterol level 109 mg/dL <200 Cholesterol Level [facility]Z ([facility]) HDL cholesterol 28 mg/dL >40 Below low normal HDL Cholestero l [facility] ([facility]) Cholesterol in LDL [Mass/volume] in Serum or Plasma 68 mg/dL <1 00 LDL Cholesterol [facility] ([facility]) non-HDL-C 81 mg/dL Non-hdl-c [facility] ([facility]) cholesterol risk ratio <5 Cholesterol R isk Ratio [facility]Z ([facility]) ID Date Data Source [id number] 05/17/2020 07:10:00 AM EST [facility] ([facility]) Name Value Range Interpretation Code Description Data Demetrice rce(s) Supporting Document(s) estimated average glucose 100 mg/dL 60-110 Estimated Average Glucose [facility] ([facility]) Hemoglobin A1c/Hemoglobin.total in Blood 5.1 % Hemoglobin a1C [facility] ([facility]) ID Date Data Source [id number] 05/17/2020 07:10:00 AM EST [facility] ([facility]) Name Value Range Interpretation Code Description Data Demetrice rce(s) Supporting Document(s) thyroxine (T4) 10.2 ug/dL 4.5-12.0 Thyroxine (T4) [facility] ([facility]) T uptake 42 % 30-39 Above high normal T Uptake MA[facility]Z ([facility]) free thyroxine index 4.3 % 1.3-4.8 Free Thyroxine Index [facility]Z ([facility]) thyroid stimulating hormone 2.310 uIU/mL 0.358-3.740 Thyroid Stimulating Hormone [facility]Z ([facility]) ID Date Data Source [id number] 05/17/2020 07:10:00 AM EST [facility] ([facility]) Name Value Range Interpretation Code Description Data Demetrice rce(s) Supporting Document(s) HDL cholesterol 28 mg/dL >40 Below low normal HDL Cholestero l MAH[facility]Z ([facility]) triglycerides level 66 mg/dL <150 Triglycerides Le radha MAH[facility]Z ([facility]) cholesterol level 109 mg/dL <200 Cholesterol Level [facility]Z ([facility]) Cholesterol in LDL [Mass/volume] in Serum or Plasma 68 mg/dL <1 00 LDL Cholesterol MA[facility]Z ([facility]) non-HDL-C 81 mg/dL Non-hdl-c [facility] ([facility]) cholesterol risk ratio <5 Cholesterol R isk Ratio [facility]Z ([facility]) ID Date Data Source [id number] 05/17/2020 07:10:00 AM EST [facility]Z ([facility]) Name Value Range Interpretation Code Description Data Demetrice rce(s) Supporting Document(s) estimated average glucose 100 mg/dL 60-110 Estimated Average Glucose [facility]Z ([facility]) Hemoglobin A1c/Hemoglobin.total in Blood 5.1 % Hemoglobin a1C [facility] ([facility]) ID Date Data Source [id number] 05/17/2020 07:10:00 AM EST [facility] ([facility]) Name Value Range Interpretation Code Description Data Demetrice rce(s) Supporting Document(s) T uptake 42 % 30-39 Above high normal T Uptake MAH[facility]Z ([facility]) free thyroxine index 4.3 % 1.3-4.8 Free Thyroxine Index [facility] ([facility]) thyroxine (T4) 10.2 ug/dL 4.5-12.0 Thyroxine (T4) MAH[facility]Z ([facility]) thyroid stimulating hormone 2.310 uIU/mL 0.358-3.740 Thyroid Stimulating Hormone [facility] ([facility]) ID Date Data Source [id number] 05/17/2020 [facility]:10[facility] Name Value Range Interpretation Code Description Data Demetrice rce(s) Supporting Document(s) triglycerides level 66 mg/dL <150 Triglycerides Le radha MAHNAZ ([facility]) cholesterol level 109 mg/dL <200 Cholesterol Level MAH[facility]Z ([facility]) HDL cholesterol 28 mg/dL >40 Below low normal HDL Cholestero l MAH[facility]Z ([facility]) non-HDL-C 81 mg/dL Non-hdl-c [facility] ([facility]) Cholesterol in LDL [Mass/volume] in Serum or Plasma 68 mg/dL <1 00 LDL Cholesterol MAH[facility]Z ([facility]) cholesterol risk ratio <5 Cholesterol R isk Ratio [facility] ([facility]) ID Date Data Source [id number] 05/17/2020 07:10[facility]00 [facility] Name Value Range Interpretation Code Description Data Demetrice rce(s) Supporting Document(s) Hemoglobin A1c/Hemoglobin.total in Blood 5.1 % Hemoglobin a1C [facility] ([facility]) estimated average glucose 100 mg/dL 60-110 Estimated Average Glucose [facility]Z ([facility]) ID Date Data Source [id number] 05/17/2020 07:10:00 AM EST MAHNAZ ([facility]) Name Value Range Interpretation Code Description Data Demetrice rce(s) Supporting Document(s) thyroxine (T4) 10.2 ug/dL 4.5-12.0 Thyroxine (T4) [facility]Z ([facility]) T uptake 42 % 30-39 Above high normal T Uptake MA[facility]Z ([facility]) free thyroxine index 4.3 % 1.3-4.8 Free Thyroxine Index [facility]Z ([facility]) thyroid stimulating hormone 2.310 uIU/mL 0.358-3.740 Thyroid Stimulating Hormone MAHNAZ ([facility]) ID Date Data Source [id number] 05/17/2020 07:10:00 AM EST MAH[facility]Z ([facility]) Name Value Range Interpretation Code Description Data Demetrice rce(s) Supporting Document(s) triglycerides level 66 mg/dL <150 Triglycerides Le radha [facility]Z ([facility]) HDL cholesterol 28 mg/dL >40 Below low normal HDL Cholestero l MAH[facility]Z ([facility]) cholesterol level 109 mg/dL <200 Cholesterol Level [facility]Z ([facility]) Cholesterol in LDL [Mass/volume] in Serum or Plasma 68 mg/dL <1 00 LDL Cholesterol [facility]Z ([facility]) non-HDL-C 81 mg/dL Non-hdl-c [facility] ([facility]) cholesterol risk ratio <5 Cholesterol R isk Ratio MAH[facility]Z ([facility]) ID Date Data Source [id number] 05/17/2020 07:10:00 AM EST MAH[facility]Z ([facility]) Name Value Range Interpretation Code Description Data Demetrice rce(s) Supporting Document(s) Hemoglobin A1c/Hemoglobin.total in Blood 5.1 % Hemoglobin a1C [facility] ([facility]) estimated average glucose 100 mg/dL 60-110 Estimated Average Glucose [facility] ([facility]) ID Date Data Source [id number] 05/17/2020 07:10:00 AM EST MAH[facility]Z ([facility]) Name Value Range Interpretation Code Description Data Demetrice rce(s) Supporting Document(s) free thyroxine index 4.3 % 1.3-4.8 Free Thyroxine Index [facility]Z ([facility]) T uptake 42 % 30-39 Above high normal T Uptake MAH[facility]Z ([facility]) thyroxine (T4) 10.2 ug/dL 4.5-12.0 Thyroxine (T4) [facility] ([facility]) thyroid stimulating hormone 2.310 uIU/mL 0.358-3.740 Thyroid Stimulating Hormone [facility] ([facility]) ID Date Data Source [id number] 05/17/2020 07:10:00 AM EST [facility] ([facility]) Name Value Range Interpretation Code Description Data Demetrice rce(s) Supporting Document(s) triglycerides level 66 mg/dL <150 Triglycerides Le radha MAH[facility]Z ([facility]) cholesterol level 109 mg/dL <200 Cholesterol Level MAH[facility]Z ([facility]) non-HDL-C 81 mg/dL Non-hdl-c [facility] ([facility]) Cholesterol in LDL [Mass/volume] in Serum or Plasma 68 mg/dL <1 00 LDL Cholesterol MA[facility]Z ([facility]) HDL cholesterol 28 mg/dL >40 Below low normal HDL Cholestero l MAH[facility]Z ([facility]) cholesterol risk ratio <5 Cholesterol R isk Ratio [facility] ([facility]) ID Date Data Source [id number] 05/17/2020 07:10:00 AM EST [facility]) Name Value Range Interpretation Code Description Data Demetrice rce(s) Supporting Document(s) Hemoglobin A1c/Hemoglobin.total in Blood 5.1 % Hemoglobin a1C [facility] ([facility]) estimated average glucose 100 mg/dL 60-110 Estimated Average Glucose [facility]Z ([facility]) ID Date Data Source [id number] 05/17/2020 07:10:00 AM EST MAH[facility]Z ([facility]) Name Value Range Interpretation Code Description Data Demetrice rce(s) Supporting Document(s) free thyroxine index 4.3 % 1.3-4.8 Free Thyroxine Index [facility]Z ([facility]) thyroxine (T4) 10.2 ug/dL 4.5-12.0 Thyroxine (T4) [facility]Z ([facility]) T uptake 42 % 30-39 Above high normal T Uptake [facility]Z ([facility]) thyroid stimulating hormone 2.310 uIU/mL 0.358-3.740 Thyroid Stimulating Hormone MAHNAZ ([facility]) ID Date Data Source [id number] 05/17/2020 07:10:00 AM EST MAH[facility]Z ([facility]) Name Value Range Interpretation Code Description Data Demetrice rce(s) Supporting Document(s) triglycerides level 66 mg/dL <150 Triglycerides Le radha MAH[facility]Z ([facility]) cholesterol level 109 mg/dL <200 Cholesterol Level [facility] ([facility]) HDL cholesterol 28 mg/dL >40 Below low normal HDL Cholestero l MAH[facility]Z ([facility]) non-HDL-C 81 mg/dL Non-hdl-c [facility] ([facility]) Cholesterol in LDL [Mass/volume] in Serum or Plasma 68 mg/dL <1 00 LDL Cholesterol MAH[facility]Z ([facility]) cholesterol risk ratio <5 Cholesterol R isk Ratio [facility] ([facility]) ID Date Data Source [id number] 05/17/2020 07:10:00 AM EST [place] ([facility]) Name Value Range Interpretation Code Description Data Demetrice rce(s) Supporting Document(s) Hemoglobin A1c/Hemoglobin.total in Blood 5.1 % Hemoglobin a1C [facility] ([facility]) estimated average glucose 100 mg/dL 60-110 Estimated Average Glucose [facility]Z ([facility]) ID Date Data Source [id number] 05/17/2020 07:10:00 AM EST [facility]Z ([facility]) Name Value Range Interpretation Code Description Data Demetrice rce(s) Supporting Document(s) T uptake 42 % 30-39 Above high normal T Uptake [facility]Z ([facility]) thyroxine (T4) 10.2 ug/dL 4.5-12.0 Thyroxine (T4) [facility] ([facility]) free thyroxine index 4.3 % 1.3-4.8 Free Thyroxine Index [facility]Z ([facility]) thyroid stimulating hormone 2.310 uIU/mL 0.358-3.740 Thyroid Stimulating Hormone MAHNAZ ([facility]) ID Date Data Source [id number] 05/17/2020 07:10:00 AM EST [facility]Z ([facility]) Name Value Range Interpretation Code Description Data Demetrice rce(s) Supporting Document(s) triglycerides level 66 mg/dL <150 Triglycerides Le radha [facility] ([facility]) cholesterol level 109 mg/dL <200 Cholesterol Level MAH[facility]Z ([facility]) HDL cholesterol 28 mg/dL >40 Below low normal HDL Cholestero l [facility]Z ([facility]) non-HDL-C 81 mg/dL Non-hdl-c [facility] ([facility]) Cholesterol in LDL [Mass/volume] in Serum or Plasma 68 mg/dL <1 00 LDL Cholesterol MA[facility]Z ([facility]) cholesterol risk ratio <5 Cholesterol R isk Ratio [facility]Z ([facility]) ID Date Data Source [id number] 05/17/2020 07:10:00 AM EST [facility] ([facility]) Name Value Range Interpretation Code Description Data Demetrice rce(s) Supporting Document(s) Hemoglobin A1c/Hemoglobin.total in Blood 5.1 % Hemoglobin a1C [facility] ([facility]) estimated average glucose 100 mg/dL 60-110 Estimated Average Glucose [facility] ([facility]) ID Date Data Source [id number] 05/17/2020 07:10:00 AM EST [facility]Z ([facility]) Name Value Range Interpretation Code Description Data Demetrice rce(s) Supporting Document(s) T uptake 42 % 30-39 Above high normal T Uptake [facility]Z ([facility]) thyroxine (T4) 10.2 ug/dL 4.5-12.0 Thyroxine (T4) [facility]Z ([facility]) free thyroxine index 4.3 % 1.3-4.8 Free Thyroxine Index [facility]Z ([facility]) thyroid stimulating hormone 2.310 uIU/mL 0.358-3.740 Thyroid Stimulating Hormone MAHNAZ ([facility]) ID Date Data Source [id number] 05/17/2020 07:10:00 AM EST [facility]Z ([facility]) Name Value Range Interpretation Code Description Data Demetrice rce(s) Supporting Document(s) cholesterol level 109 mg/dL <200 Cholesterol Level [facility]Z ([facility]) triglycerides level 66 mg/dL <150 Triglycerides Le radha [facility]Z ([facility]) non-HDL-C 81 mg/dL Non-hdl-c [facility] ([facility]) Cholesterol in LDL [Mass/volume] in Serum or Plasma 68 mg/dL <1 00 LDL Cholesterol [facility]Z ([facility]) HDL cholesterol 28 mg/dL >40 Below low normal HDL Cholestero l MHANAZ ([facility]) cholesterol risk ratio <5 Cholesterol R isk Ratio [facility]Z ([facility]) ID Date Data Source [id number] 05/17/2020 07:10:00 AM EST [facility] ([facility]) Name Value Range Interpretation Code Description Data Demetrice rce(s) Supporting Document(s) Hemoglobin A1c/Hemoglobin.total in Blood 5.1 % Hemoglobin a1C [facility] ([facility]) estimated average glucose 100 mg/dL 60-110 Estimated Average Glucose [facility] ([facility]) ID Date Data Source [id number] 05/17/2020 07:10:00 AM EST [facility]Z ([facility]) Name Value Range Interpretation Code Description Data Demetrice rce(s) Supporting Document(s) free thyroxine index 4.3 % 1.3-4.8 Free Thyroxine Index [facility]Z ([facility]) T uptake 42 % 30-39 Above high normal T Uptake [facility]Z ([facility]) thyroxine (T4) 10.2 ug/dL 4.5-12.0 Thyroxine (T4) [facility]Z ([facility]) thyroid stimulating hormone 2.310 uIU/mL 0.358-3.740 Thyroid Stimulating Hormone [facility]HNAZ ([facility]) ID Date Data Source [id number] 05/17/2020 07:10:00 AM EST [facility] ([facility]) Name Value Range Interpretation Code Description Data Demetrice rce(s) Supporting Document(s) triglycerides level 66 mg/dL <150 Triglycerides Le radha MAH[facility]Z ([facility]) cholesterol level 109 mg/dL <200 Cholesterol Level [facility]Z ([facility]) HDL cholesterol 28 mg/dL >40 Below low normal HDL Cholestero l MA[facility]Z ([facility]) Cholesterol in LDL [Mass/volume] in Serum or Plasma 68 mg/dL <1 00 LDL Cholesterol MA[facility]Z ([facility]) non-HDL-C 81 mg/dL Non-hdl-c [facility] ([facility]) cholesterol risk ratio <5 Cholesterol R isk Ratio MAH[facility]Z ([facility]) ID Date Data Source [id number] 05/17/2020 07:10:00 AM EST [facility]Z ([facility]) Name Value Range Interpretation Code Description Data Demetrice rce(s) Supporting Document(s) Hemoglobin A1c/Hemoglobin.total in Blood 5.1 % Hemoglobin a1C [facility] ([facility]) estimated average glucose 100 mg/dL 60-110 Estimated Average Glucose [facility]Z ([facility]) ID Date Data Source [id number] 05/17/2020 07:10:00 AM EST [facility] ([facility]) Name Value Range Interpretation Code Description Data Demetrice rce(s) Supporting Document(s) T uptake 42 % 30-39 Above high normal T Uptake MAH[facility]Z ([facility]) thyroid stimulating hormone 2.310 uIU/mL 0.358-3.740 Thyroid Stimulating Hormone MAHNAZ ([facility]) free thyroxine index 4.3 % 1.3-4.8 Free Thyroxine Index [facility]Z ([facility]) thyroxine (T4) 10.2 ug/dL 4.5-12.0 Thyroxine (T4) [facility]Z ([facility]) ID Date Data Source [id number] 05/17/2020 07:10:00 AM EST [facility]Z ([facility]) Name Value Range Interpretation Code Description Data Demetrice rce(s) Supporting Document(s) triglycerides level 66 mg/dL <150 Triglycerides Le radha MAH[facility]Z ([facility]) HDL cholesterol 28 mg/dL >40 Below low normal HDL Cholestero l [facility]Z ([facility]) cholesterol level 109 mg/dL <200 Cholesterol Level MA[facility]Z ([facility]) non-HDL-C 81 mg/dL Non-hdl-c [facility] ([facility]) Cholesterol in LDL [Mass/volume] in Serum or Plasma 68 mg/dL <1 00 LDL Cholesterol MAH[facility]Z ([facility]) cholesterol risk ratio <5 Cholesterol R isk Ratio [facility] ([facility]) ID Date Data Source [id number] 05/17/2020 07:08:00 AM EST [facility]Z ([facility]) Name Value Range Interpretation Code Description Data Demetrice rce(s) Supporting Document(s) C reactive protein quantitativ 0.30 mg/dL 0.00-0.30 C Reactive Protein Quantitativ [facility] ([facility]) ID Date Data Source [id number] 05/17/2020 07:08:00 AM EST [facility]Z ([facility]) Name Value Range Interpretation Code Description Data Demetrice rce(s) Supporting Document(s) procalcitonin <0.05 Procalcitonin [facility]) ID Date Data Source [id number] 05/17/2020 07:08:00 AM EST [facility]) Name Value Range Interpretation Code Description Data Demetrice rce(s) Supporting Document(s) CPK creatine phosphokinase 129 U/L 26-192 CPK Creat ine Phosphokinase MAH[facility]Z ([facility]) mb/CK relative index < or =4 mb/CK Relative Index [facility] ([facility]) CK-mb value mass < 1.0 <3.6 CK-mb Value Mass AT [facility]) troponin I < 0.02 < 0.10 Troponin I [facility]) ID Date Data Source [id number] 05/17/2020 07:08:00 AM EST [facility]) Name Value Range Interpretation Code Description Data Demetrice rce(s) Supporting Document(s) blood urea nitrogen 6 mg/dL 7-18 Below low normal Blood Urea Nitrogen [facility] ([facility]) glucose, fasting 82 mg/dL 70-100 Glucose, Fasting AT [facility]) creatinine for GFR 0.66 mg/dL 0.55-1.30 Creatinine for GF R MAH[facility]Z ([facility]) sodium level 141 mEq/L 136-145 Sodium Level [facility]Z ([facility]) chloride level 114 mEq/L 98-107 Above high normal Chloride Level [facility] ([facility] [facility]) glomerular filtration rate > 60.0 >60 Glomerula r Filtration Rate [place] ([facility]) potassium serum 3.8 mEq/L 3.5-5.1 [facility] carbon dioxide level 23 mEq/L 21-32 Carbon Dioxide Level [facility]) calcium level 7.6 mg/dL 8.5-10.1 Below low normal Calcium Level AT [facility]) AST/SGOT 6 U/L 7-37 Below low normal AST/SGOT MAH[place]Z ( [facility]) anion gap 4 mEq/L 8-16 Below low normal Anion Gap MAHNAZ ( [facility]) ALT/SGPT 9 U/L 12-78 Below low normal ALT/SGPT MAH[place]Z ( [facility]) total protein 5.4 gm/dL 6.4-8.2 Below low normal Total Protein AT [place] ([facility]) albumin 3.0 gm/dL 3.2-5.2 Below low normal Albumin MAHNAZ ( [facility]) bilirubin,total 0.2 mg/dL 0.2-1.0 Bilirubin,total ATHE NA ([facility]) alkaline phosphatase 74 U/L 45-117 Alkaline Phosph atase MAH[place]Z ([facility]) albumin/globulin ratio 1.2-2.2 Albumin/globu eren Ratio MAHNAZ ([facility]) ID Date Data Source [id number] 05/17/2020 07:08:00 AM EST [place] ([facility]) Name Value Range Interpretation Code Description Data Demetrice rce(s) Supporting Document(s) erythrocyte sedimentation rate 9 mm/HR 0-20 Eryth rocyte Sedimentation Rate MAHNAZ ([facility]) ID Date Data Source [id number] 05/17/2020 07:08:00 AM EST [place] ([facility]) Name Value Range Interpretation Code Description Data Demetrice rce(s) Supporting Document(s) white blood count 8.4 10 4.0-10.0 White Blood Count MAH[place]Z ([facility]) red blood count 3.69 10 4.00-5.40 Below low normal Red Blood Coun t MAH[place]Z ([facility]) mean corpuscular hemoglobin 28.7 pg 27.0-33.0 Mean Cor puscular Hemoglobin MAH[place]Z ([facility]) hemoglobin 10.6 g/dL 12.0-15.5 Below low normal Hemoglobin MAH[place]Z ( [facility]) hematocrit 34.3 % 36.0-47.0 Below low normal Hematocrit MAH[place]Z ( [facility]) mean corpuscular volume 93.0 fL 80.0-96.0 Mean Corpusc ular Volume MAH[place]Z ([facility]) platelet count, automated 205 10 150-450 Platelet C ount, Automated MAH[place]Z ([facility]) neutrophils % 65.6 % 36.0-66.0 Neutrophils % MAH[place]Z ( [facility]) red cell distribution width 14.2 % 11.5-14.5 Red Cell Distribution Width [facility]Z ([facility]) mean corpuscular HGB conc 30.9 g/dL 32.0-36.5 Below low eduardo l Mean Corpuscular HGB Conc MAH[place]Z ([facility]) mono % 3.7 % 0.0-5.0 [place] % [place] ([facility]) eos % 2.1 % 0.0-3.0 Eos % [place] ([facility]) lymph % 27.7 % 24.0-44.0 Lymph % [place] ([facility]) immature granulocyte % 0.4 % 0-3.0 Immature Gran ulocyte % [place] ([facility]) baso % 0.5 % 0.0-1.0 Baso % [place] ([facility]) nucleated red blood cell % 0.0 % 0-0 Nucleated Red Blood Cell % MAH[place]Z ([facility]) lymph # 2.3 10 1.5-5.0 Lymph # [place] ([facility]) neutrophils # 5.5 10 1.5-8.5 Neutrophils # MAH[place]Z ( [facility]) baso # 0.0 10 0.0-0.2 Baso # [facility]Z ([facility]) mono # 0.3 10 0.0-0.8 [place] # [place] ([facility]) eos # 0.2 10 0.0-0.5 Eos # [facility] ([facility]) ID Date Data Source [id number] 05/17/2020 07:08:00 AM EST [place] ([facility]) Name Value Range Interpretation Code Description Data Demetrice rce(s) Supporting Document(s) lactic acid sepsis protocol 0.8 mmol/L 0.4-2.0 Lactic A merlin Sepsis Protocol [facility]H[place]Z ([facility]) ID Date Data Source [id number] 05/17/2020 07:08:00 AM EST [place] ([facility]) Name Value Range Interpretation Code Description Data Demetrice rce(s) Supporting Document(s) ammonia 43 umol/L <32 Above high normal Ammonia [facility]Z ([facility]) ID Date Data Source [id number] 05/17/2020 07:08:00 AM EST [place] ([facility]) Name Value Range Interpretation Code Description Data Demetrice rce(s) Supporting Document(s) C reactive protein quantitativ 0.30 mg/dL 0.00-0.30 C Reactive Protein Quantitativ [facility]Z ([facility]) ID Date Data Source [id number] 05/17/2020 07:08:00 AM EST [place] ([facility]) Name Value Range Interpretation Code Description Data Demetrice rce(s) Supporting Document(s) procalcitonin <0.05 Procalcitonin MAH[place]Z ( [facility]) ID Date Data Source [id number] 05/17/2020 07:08:00 AM EST [place] ([facility]) Name Value Range Interpretation Code Description Data Demetrice rce(s) Supporting Document(s) CPK creatine phosphokinase 129 U/L 26-192 CPK Creat ine Phosphokinase MAH[place]Z ([facility]) CK-mb value mass < 1.0 <3.6 CK-mb Value Mass AT [place] ([facility]) mb/CK relative index < or =4 mb/CK Relative Index [facility]Z ([facility]) troponin I < 0.02 < 0.10 Troponin I [facility]Z ([facility]) ID Date Data Source [id number] 05/17/2020 07:08:00 AM EST [place] ([facility]) Name Value Range Interpretation Code Description Data Demetrice rce(s) Supporting Document(s) blood urea nitrogen 6 mg/dL 7-18 Below low normal Blood Urea Nitrogen [place] ([facility]) glucose, fasting 82 mg/dL 70-100 Glucose, Fasting AT [facility] ([facility]) creatinine for GFR 0.66 mg/dL 0.55-1.30 Creatinine for GF R MAH[place]Z ([facility]) glomerular filtration rate > 60.0 >60 Glomerula r Filtration Rate [place]Z ([facility]) sodium level 141 mEq/L 136-145 Sodium Level [facility]Z ([facility]) potassium serum 3.8 mEq/L 3.5-5.1 Potassium Serum ATHE ([facility]) carbon dioxide level 23 mEq/L 21-32 Carbon Dioxide Level [place] ([facility]) chloride level 114 mEq/L 98-107 Above high normal Chloride Level [facility] ([facility]) AST/SGOT 6 U/L 7-37 Below low normal AST/SGOT [place]Z ( [facility]) calcium level 7.6 mg/dL 8.5-10.1 Below low normal Calcium Level AT [facility] ([facility]) anion gap 4 mEq/L 8-16 Below low normal Anion Gap MAH[place]Z ( [facility]) ALT/SGPT 9 U/L 12-78 Below low normal ALT/SGPT [place] ( [facility]) alkaline phosphatase 74 U/L 45-117 Alkaline Phosph atase [facility]H[place]Z ([facility]) bilirubin,total 0.2 mg/dL 0.2-1.0 Bilirubin,total ATHE ([facility]) total protein 5.4 gm/dL 6.4-8.2 Below low normal Total Protein AT [facility]) albumin/globulin ratio 1.2-2.2 Albumin/globu eern Ratio MAH[place]Z ([facility]) albumin 3.0 gm/dL 3.2-5.2 Below low normal Albumin [place] ( [facility]) ID Date Data Source [id number] 05/17/2020 07:08:00 AM EST [place] ([facility]) Name Value Range Interpretation Code Description Data Demetrice rce(s) Supporting Document(s) erythrocyte sedimentation rate 9 mm/HR 0-20 Eryth rocyte Sedimentation Rate [place]Z ([facility]) ID Date Data Source [id number] 05/17/2020 07:08:00 AM EST [place] ([facility]) Name Value Range Interpretation Code Description Data Demetrice rce(s) Supporting Document(s) white blood count 8.4 10 4.0-10.0 White Blood Count [place] ([facility]) red blood count 3.69 10 4.00-5.40 Below low normal Red Blood Coun t [place] ([facility]) hematocrit 34.3 % 36.0-47.0 Below low normal Hematocrit [place] ( [facility]) hemoglobin 10.6 g/dL 12.0-15.5 Below low normal Hemoglobin [place] ( [facility]) mean corpuscular volume 93.0 fL 80.0-96.0 Mean Corpusc ular Volume MAH[place]Z ([facility]) mean corpuscular HGB conc 30.9 g/dL 32.0-36.5 Below low eduardo l Mean Corpuscular HGB Conc [place] ([facility]) mean corpuscular hemoglobin 28.7 pg 27.0-33.0 Mean Cor puscular Hemoglobin MA[place]Z ([facility]) red cell distribution width 14.2 % 11.5-14.5 Red Cell Distribution Width [place] ([facility]) lymph % 27.7 % 24.0-44.0 Lymph % [place] ([facility]) platelet count, automated 205 10 150-450 Platelet C ount, Automated MA[place]Z ([facility]) neutrophils % 65.6 % 36.0-66.0 Neutrophils % [place]Z ( [facility]) mono % 3.7 % 0.0-5.0 [place] % [place] ([facility]) eos % 2.1 % 0.0-3.0 Eos % [place] ([facility]) baso % 0.5 % 0.0-1.0 Baso % [place] ([facility]) nucleated red blood cell % 0.0 % 0-0 Nucleated Red Blood Cell % [place]Z ([facility]) immature granulocyte % 0.4 % 0-3.0 Immature Gran ulocyte % [facility]Z ([facility]) lymph # 2.3 10 1.5-5.0 Lymph # [facility] ([facility]) eos # 0.2 10 0.0-0.5 Eos # [place] ([facility]) mono # 0.3 10 0.0-0.8 [place] # [place]Z ([facility]) neutrophils # 5.5 10 1.5-8.5 Neutrophils # [place]Z ( [facility]) baso # 0.0 10 0.0-0.2 Baso # [facility] ([facility]) ID Date Data Source [id number] 05/17/2020 07:08:00 AM EST [place] ([facility]) Name Value Range Interpretation Code Description Data Demetrice rce(s) Supporting Document(s) lactic acid sepsis protocol 0.8 mmol/L 0.4-2.0 Lactic A merlin Sepsis Protocol [facility] ([facility]) ID Date Data Source [id number] 05/17/2020 07:08:00 AM EST [place] ([facility]) Name Value Range Interpretation Code Description Data Demetrice rce(s) Supporting Document(s) ammonia 43 umol/L <32 Above high normal Ammonia [place] ([facility]) ID Date Data Source [id number] 05/17/2020 07:08:00 AM EST [place] ([facility]) Name Value Range Interpretation Code Description Data Demetrice rce(s) Supporting Document(s) C reactive protein quantitativ 0.30 mg/dL 0.00-0.30 C Reactive Protein Quantitativ [place] ([facility]) ID Date Data Source [id number] 05/17/2020 07:08:00 AM EST [place] ([facility]) Name Value Range Interpretation Code Description Data Demetrice rce(s) Supporting Document(s) procalcitonin <0.05 Procalcitonin [place] ( [facility]) ID Date Data Source [id number] 05/17/2020 07:08:00 AM EST [place] ([facility]) Name Value Range Interpretation Code Description Data Demetrice rce(s) Supporting Document(s) CPK creatine phosphokinase 129 U/L 26-192 CPK Creat ine Phosphokinase [place] ([facility]) CK-mb value mass < 1.0 <3.6 CK-mb Value Mass AT [facility]) troponin I < 0.02 < 0.10 Troponin I [place] ([facility]) mb/CK relative index < or =4 mb/CK Relative Index [place] ([facility]) ID Date Data Source [id number] 05/17/2020 07:08:00 AM EST [facility]) Name Value Range Interpretation Code Description Data Demetrice rce(s) Supporting Document(s) glucose, fasting 82 mg/dL 70-100 Glucose, Fasting AT [facility]) glomerular filtration rate > 60.0 >60 Glomerula r Filtration Rate [place] ([facility]) blood urea nitrogen 6 mg/dL 7-18 Below low normal Blood Urea Nitrogen [place] ([facility]) creatinine for GFR 0.66 mg/dL 0.55-1.30 Creatinine for GF R [place] ([facility]) potassium serum 3.8 mEq/L 3.5-5.1 Potassium Serum ATH NA ([facility]) chloride level 114 mEq/L 98-107 Above high normal Chloride Level [place] ([facility]) sodium level 141 mEq/L 136-145 Sodium Level [facility] ([facility]) calcium level 7.6 mg/dL 8.5-10.1 Below low normal Calcium Level AT [facility]) carbon dioxide level 23 mEq/L 21-32 Carbon Dioxide Level [facility]Z ([facility]) AST/SGOT 6 U/L 7-37 Below low normal AST/SGOT [place] ( [facility]) anion gap 4 mEq/L 8-16 Below low normal Anion Gap [place]Z ( [facility]) ALT/SGPT 9 U/L 12-78 Below low normal ALT/SGPT [place] ( [facility]) bilirubin,total 0.2 mg/dL 0.2-1.0 Bilirubin,total ATHE NA ([facility]) alkaline phosphatase 74 U/L 45-117 Alkaline Phosph atase [facility]Z ([facility]) total protein 5.4 gm/dL 6.4-8.2 Below low normal Total Protein AT [place] ([facility]) albumin/globulin ratio 1.2-2.2 Albumin/globu eren Ratio MA[facility]Z ([facility]) albumin 3.0 gm/dL 3.2-5.2 Below low normal Albumin [facility]Z ( [facility]) ID Date Data Source [id number] 05/17/2020 07:08:00 AM EST [place] ([facility]) Name Value Range Interpretation Code Description Data Demetrice rce(s) Supporting Document(s) erythrocyte sedimentation rate 9 mm/HR 0-20 Eryth rocyte Sedimentation Rate [facility]Z ([facility]) ID Date Data Source [id number] 05/17/2020 07:08:00 AM EST [place] ([facility]) Name Value Range Interpretation Code Description Data Demetrice rce(s) Supporting Document(s) white blood count 8.4 10 4.0-10.0 White Blood Count [facility] ([facility]) red blood count 3.69 10 4.00-5.40 Below low normal Red Blood Coun t [place]Z ([facility]) hematocrit 34.3 % 36.0-47.0 Below low normal Hematocrit [place]Z ( [facility]) hemoglobin 10.6 g/dL 12.0-15.5 Below low normal Hemoglobin [place]Z ( [facility]) mean corpuscular hemoglobin 28.7 pg 27.0-33.0 Mean Cor puscular Hemoglobin [facility]Z ([facility]) mean corpuscular HGB conc 30.9 g/dL 32.0-36.5 Below low eduardo l Mean Corpuscular HGB Conc [facility]Z ([facility]) mean corpuscular volume 93.0 fL 80.0-96.0 Mean Corpusc ular Volume [facility]Z ([facility]) red cell distribution width 14.2 % 11.5-14.5 Red Cell Distribution Width [facility] ([facility]) platelet count, automated 205 10 150-450 Platelet C ount, Automated [place]Z ([facility]) neutrophils % 65.6 % 36.0-66.0 Neutrophils % [place] ( [facility]) lymph % 27.7 % 24.0-44.0 Lymph % [facility] ([facility]) eos % 2.1 % 0.0-3.0 Eos % [place] ([facility]) mono % 3.7 % 0.0-5.0 [place] % [place] ([facility]) baso % 0.5 % 0.0-1.0 Baso % [facility] ([facility]) neutrophils # 5.5 10 1.5-8.5 Neutrophils # [place]Z ( [facility]) nucleated red blood cell % 0.0 % 0-0 Nucleated Red Blood Cell % [place] ([facility]) immature granulocyte % 0.4 % 0-3.0 Immature Gran ulocyte % [place] ([facility]) mono # 0.3 10 0.0-0.8 [place] # [place] ([facility]) eos # 0.2 10 0.0-0.5 Eos # [facility] ([facility]) lymph # 2.3 10 1.5-5.0 Lymph # [facility] ([facility]) baso # 0.0 10 0.0-0.2 Baso # [facility] ([facility]) ID Date Data Source [id number] 05/17/2020 07:08:00 AM EST [place] ([facility]) Name Value Range Interpretation Code Description Data Demetrice rce(s) Supporting Document(s) lactic acid sepsis protocol 0.8 mmol/L 0.4-2.0 Lactic A merlin Sepsis Protocol [facility]Z ([facility]) ID Date Data Source [id number] 05/17/2020 07:08:00 AM EST [place] ([facility]) Name Value Range Interpretation Code Description Data Demetrice rce(s) Supporting Document(s) ammonia 43 umol/L <32 Above high normal Ammonia [place] ([facility]) ID Date Data Source [id number] 05/17/2020 07:08:00 AM EST [place] ([facility]) Name Value Range Interpretation Code Description Data Demetrice rce(s) Supporting Document(s) C reactive protein quantitativ 0.30 mg/dL 0.00-0.30 C Reactive Protein Quantitativ [facility] ([facility]) ID Date Data Source [id number] 05/17/2020 07:08:00 AM EST [place] ([facility]) Name Value Range Interpretation Code Description Data Demetrice rce(s) Supporting Document(s) procalcitonin <0.05 Procalcitonin [facility]Z ( [facility]) ID Date Data Source [id number] 05/17/2020 07:08:00 AM EST [place] ([facility]) Name Value Range Interpretation Code Description Data Demetrice rce(s) Supporting Document(s) CPK creatine phosphokinase 129 U/L 26-192 CPK Creat ine Phosphokinase [facility]Z ([facility]) CK-mb value mass < 1.0 <3.6 CK-mb Value Mass AT [facility] ([facility]) mb/CK relative index < or =4 mb/CK Relative Index [facility]Z ([facility]) troponin I < 0.02 < 0.10 Troponin I [place] ([facility]) ID Date Data Source [id number] 05/17/2020 07:08:00 AM EST [place] ([facility]) Name Value Range Interpretation Code Description Data Demetrice rce(s) Supporting Document(s) glucose, fasting 82 mg/dL 70-100 Glucose, Fasting AT [facility]) blood urea nitrogen 6 mg/dL 7-18 Below low normal Blood Urea Nitrogen [facility]Z ([facility]) creatinine for GFR 0.66 mg/dL 0.55-1.30 Creatinine for GF R [place]Z ([facility]) glomerular filtration rate > 60.0 >60 Glomerula r Filtration Rate [place] ([facility]) sodium level 141 mEq/L 136-145 Sodium Level [facility] ([facility]) chloride level 114 mEq/L 98-107 Above high normal Chloride Level [place] ([facility]) potassium serum 3.8 mEq/L 3.5-5.1 Potassium Serum ATHE ([facility]) carbon dioxide level 23 mEq/L 21-32 Carbon Dioxide Level [place] ([facility]) anion gap 4 mEq/L 8-16 Below low normal Anion Gap MAH[place]Z ( [facility]) ALT/SGPT 9 U/L 12-78 Below low normal ALT/SGPT [place]Z ( [facility]) AST/SGOT 6 U/L 7-37 Below low normal AST/SGOT [place] ( [facility]) calcium level 7.6 mg/dL 8.5-10.1 Below low normal Calcium Level AT [facility]) alkaline phosphatase 74 U/L 45-117 Alkaline Phosph atase MAH[place]Z ([facility]) total protein 5.4 gm/dL 6.4-8.2 Below low normal Total Protein AT [facility]) bilirubin,total 0.2 mg/dL 0.2-1.0 Bilirubin,total ATHE ([facility]) albumin/globulin ratio 1.2-2.2 Albumin/globu eren Ratio MAH[place]Z ([facility]) albumin 3.0 gm/dL 3.2-5.2 Below low normal Albumin [facility]) ID Date Data Source [id number] 05/17/2020 07:08:00 AM EST [place] ([facility]) Name Value Range Interpretation Code Description Data Demetrice rce(s) Supporting Document(s) erythrocyte sedimentation rate 9 mm/HR 0-20 Eryth rocyte Sedimentation Rate [facility] ([facility]) ID Date Data Source [id number] 05/17/2020 07:08:00 AM EST [place] ([facility]) Name Value Range Interpretation Code Description Data Demetrice rce(s) Supporting Document(s) white blood count 8.4 10 4.0-10.0 White Blood Count [facility] ([facility]) red blood count 3.69 10 4.00-5.40 Below low normal Red Blood Coun t [place] ([facility]) hemoglobin 10.6 g/dL 12.0-15.5 Below low normal Hemoglobin [place] ( [facility]) hematocrit 34.3 % 36.0-47.0 Below low normal Hematocrit [place] ( [facility]) mean corpuscular volume 93.0 fL 80.0-96.0 Mean Corpusc ular Volume [place] ([facility]) mean corpuscular hemoglobin 28.7 pg 27.0-33.0 Mean Cor puscular Hemoglobin [facility] ([facility]) red cell distribution width 14.2 % 11.5-14.5 Red Cell Distribution Width [facility] ([facility]) mean corpuscular HGB conc 30.9 g/dL 32.0-36.5 Below low eduardo l Mean Corpuscular HGB Conc [facility] ([facility]) platelet count, automated 205 10 150-450 Platelet C ount, Automated [place] ([facility]) neutrophils % 65.6 % 36.0-66.0 Neutrophils % [place] ( [facility]) lymph % 27.7 % 24.0-44.0 Lymph % [place] ([facility]) mono % 3.7 % 0.0-5.0 [place] % [place] ([facility]) baso % 0.5 % 0.0-1.0 Baso % [facility] ([facility]) eos % 2.1 % 0.0-3.0 Eos % [facility] ([facility]) nucleated red blood cell % 0.0 % 0-0 Nucleated Red Blood Cell % [facility]Z ([facility]) immature granulocyte % 0.4 % 0-3.0 Immature Gran ulocyte % [facility]Z ([facility]) neutrophils # 5.5 10 1.5-8.5 Neutrophils # [place]Z ( [facility]) lymph # 2.3 10 1.5-5.0 Lymph # [facility] ([facility]) eos # 0.2 10 0.0-0.5 Eos # [facility] ([facility]) mono # 0.3 10 0.0-0.8 [place] # [place] ([facility]) baso # 0.0 10 0.0-0.2 Baso # [facility]Z ([facility]) ID Date Data Source [id number] 05/17/2020 07:08:00 AM EST [place] ([facility]) Name Value Range Interpretation Code Description Data Demetrice rce(s) Supporting Document(s) lactic acid sepsis protocol 0.8 mmol/L 0.4-2.0 Lactic A merlin Sepsis Protocol [facility] ([facility]) ID Date Data Source [id number] 05/17/2020 07:08:00 AM EST [place]Z ([facility]) Name Value Range Interpretation Code Description Data Demetrice rce(s) Supporting Document(s) ammonia 43 umol/L <32 Above high normal Ammonia [facility] ([facility]) ID Date Data Source [id number] 05/17/2020 07:08:00 AM EST [place]Z ([facility]) Name Value Range Interpretation Code Description Data Demetrice rce(s) Supporting Document(s) C reactive protein quantitativ 0.30 mg/dL 0.00-0.30 C Reactive Protein Quantitativ [facility]Z ([facility]) ID Date Data Source [id number] 05/17/2020 07:08:00 AM EST [facility]) Name Value Range Interpretation Code Description Data Demetrice rce(s) Supporting Document(s) procalcitonin <0.05 Procalcitonin [facility]) ID Date Data Source [id number] 05/17/2020 07:08:00 AM EST [facility]) Name Value Range Interpretation Code Description Data Demetrice rce(s) Supporting Document(s) CPK creatine phosphokinase 129 U/L 26-192 CPK Creat ine Phosphokinase [place] ([facility]) CK-mb value mass < 1.0 <3.6 CK-mb Value Mass [facility] [facility]) mb/CK relative index < or =4 mb/CK Relative Index RANDOLPH ([facility]) troponin I < 0.02 < 0.10 Troponin I RANDOLPH ([facility]) ID Date Data Source [id number] 05/17/2020 07:08:00 AM EST [facility]) Name Value Range Interpretation Code Description Data Demetrice rce(s) Supporting Document(s) blood urea nitrogen 6 mg/dL 7-18 Below low normal Blood Urea Nitrogen MAHNAZ ([facility]) glucose, fasting 82 mg/dL 70-100 Glucose, Fasting AT [facility]) creatinine for GFR 0.66 mg/dL 0.55-1.30 Creatinine for GF R MAHNAZ ([facility]) glomerular filtration rate > 60.0 >60 Glomerula r Filtration Rate MAHNAZ ([facility]) potassium serum 3.8 mEq/L 3.5-5.1 Potassium Serum ATH NA ([facility]) sodium level 141 mEq/L 136-145 Sodium Level RANDOLPH ([facility]) calcium level 7.6 mg/dL 8.5-10.1 Below low normal Calcium Level AT [facility] ([facility]) anion gap 4 mEq/L 8-16 Below low normal Anion Gap MAHNAZ ( [facility]) carbon dioxide level 23 mEq/L 21-32 Carbon Dioxide Level MAHNAZ ([facility]) chloride level 114 mEq/L 98-107 Above high normal Chloride Level MAHNAZ ([facility]) ALT/SGPT 9 U/L 12-78 Below low normal ALT/SGPT MAHNAZ ( [facility]) alkaline phosphatase 74 U/L 45-117 Alkaline Phosph atase MAHNAZ ([facility]) bilirubin,total 0.2 mg/dL 0.2-1.0 Bilirubin,total ATHE ([facility]) AST/SGOT 6 U/L 7-37 Below low normal AST/SGOT MAHNAZ ( [facility]) total protein 5.4 gm/dL 6.4-8.2 Below low normal Total Protein AT [facility] ([facility]) albumin 3.0 gm/dL 3.2-5.2 Below low normal Albumin MAHNAZ ( [facility]) albumin/globulin ratio 1.2-2.2 Albumin/globu eren Ratio MAHNAZ ([facility]) ID Date Data Source [id number] 05/17/2020 07:08:00 AM EST [facility] ([facility]) Name Value Range Interpretation Code Description Data Demetrice rce(s) Supporting Document(s) erythrocyte sedimentation rate 9 mm/HR 0-20 Eryth rocyte Sedimentation Rate MAHNAZ ([facility]) ID Date Data Source [id number] 05/17/2020 07:08:00 AM EST [facility]PH ([facility]) Name Value Range Interpretation Code Description Data Demetrice rce(s) Supporting Document(s) white blood count 8.4 10 4.0-10.0 White Blood Count MAHNAZ ([facility]) red blood count 3.69 10 4.00-5.40 Below low normal Red Blood Coun t MAHNAZ ([facility]) hemoglobin 10.6 g/dL 12.0-15.5 Below low normal Hemoglobin MAHNAZ ( [facility]) hematocrit 34.3 % 36.0-47.0 Below low normal Hematocrit MAHNAZ ( [facility]) mean corpuscular volume 93.0 fL 80.0-96.0 Mean Corpusc ular Volume MAHNAZ ([facility]) mean corpuscular hemoglobin 28.7 pg 27.0-33.0 Mean Cor puscular Hemoglobin MAHNAZ ([facility]) platelet count, automated 205 10 150-450 Platelet C ount, Automated MAHNAZ ([facility]) mean corpuscular HGB conc 30.9 g/dL 32.0-36.5 Below low eduardo l Mean Corpuscular HGB Conc MAHNAZ ([facility]) red cell distribution width 14.2 % 11.5-14.5 Red Cell Distribution Width MAHNAZ ([facility]) mono % 3.7 % 0.0-5.0 [place] % MAHNAZ ([facility]) neutrophils % 65.6 % 36.0-66.0 Neutrophils % MAHNAZ ( [facility]) lymph % 27.7 % 24.0-44.0 Lymph % MAHNAZ ([facility]) baso % 0.5 % 0.0-1.0 Baso % MAH[facility]Z ([facility]) eos % 2.1 % 0.0-3.0 Eos % MAHNAZ ([facility]) immature granulocyte % 0.4 % 0-3.0 Immature Gran ulocyte % MAHNAZ ([facility]) nucleated red blood cell % 0.0 % 0-0 Nucleated Red Blood Cell % MAHNAZ ([facility]) lymph # 2.3 10 1.5-5.0 Lymph # MAHNAZ ([facility]) neutrophils # 5.5 10 1.5-8.5 Neutrophils # MAHNAZ ( [facility]) mono # 0.3 10 0.0-0.8 [place] # MAHNAZ ([facility]) eos # 0.2 10 0.0-0.5 Eos # MAHNAZ ([facility]) baso # 0.0 10 0.0-0.2 Baso # MAHNAZ ([facility]) ID Date Data Source [id number] 05/17/2020 07:08:00 AM EST MAHNAZ ([facility]) Name Value Range Interpretation Code Description Data Demetrice rce(s) Supporting Document(s) lactic acid sepsis protocol 0.8 mmol/L 0.4-2.0 Lactic A merlin Sepsis Protocol MAHNAZ ([facility]) ID Date Data Source [id number] 05/17/2020 07:08:00 AM EST MAHNAZ ([facility]) Name Value Range Interpretation Code Description Data Demetrice rce(s) Supporting Document(s) ammonia 43 umol/L <32 Above high normal Ammonia MAHNAZ ([facility]) ID Date Data Source [id number] 05/17/2020 07:08:00 AM EST MAH[place]Z ([facility]) Name Value Range Interpretation Code Description Data Demetrice rce(s) Supporting Document(s) C reactive protein quantitativ 0.30 mg/dL 0.00-0.30 C Reactive Protein Quantitativ MAHNAZ ([facility]) ID Date Data Source [id number] 05/17/2020 07:08:00 AM EST MAH[place]Z ([facility]) Name Value Range Interpretation Code Description Data Demetrice rce(s) Supporting Document(s) procalcitonin <0.05 Procalcitonin MAHNAZ ( [facility]) ID Date Data Source [id number] 05/17/2020 07:08:00 AM EST MAHNAZ ([facility]) Name Value Range Interpretation Code Description Data Demetrice rce(s) Supporting Document(s) CPK creatine phosphokinase 129 U/L 26-192 CPK Creat ine Phosphokinase MAHNAZ ([facility]) mb/CK relative index < or =4 mb/CK Relative Index MAHNAZ ([facility]) CK-mb value mass < 1.0 <3.6 CK-mb Value Mass AT [facility]) troponin I < 0.02 < 0.10 Troponin I R[facility]OLPH ([facility]) ID Date Data Source [id number] 05/17/2020 07:08:00 AM EST [facility]) Name Value Range Interpretation Code Description Data Demetrice rce(s) Supporting Document(s) blood urea nitrogen 6 mg/dL 7-18 Below low normal Blood Urea Nitrogen MAHNAZ ([facility]) glucose, fasting 82 mg/dL 70-100 Glucose, Fasting AT [facility] ([facility]) sodium level 141 mEq/L 136-145 Sodium Level MAHNAZ ([facility]) potassium serum 3.8 mEq/L 3.5-5.1 Potassium Serum ATHE ([facility]) glomerular filtration rate > 60.0 >60 Glomerula r Filtration Rate RANDOLPH ([facility]) creatinine for GFR 0.66 mg/dL 0.55-1.30 Creatinine for GF R MAHNAZ ([facility]) chloride level 114 mEq/L 98-107 Above high normal Chloride Level MAHNAZ ([facility]) carbon dioxide level 23 mEq/L 21-32 Carbon Dioxide Level R[facility]PH ([facility]) calcium level 7.6 mg/dL 8.5-10.1 Below low normal Calcium Level AT [facility]) anion gap 4 mEq/L 8-16 Below low normal Anion Gap RANDOLPH ( [facility]) AST/SGOT 6 U/L 7-37 Below low normal AST/SGOT RANDOLPH ( [facility]) alkaline phosphatase 74 U/L 45-117 Alkaline Phosph atase MAHNAZ ([facility]) ALT/SGPT 9 U/L 12-78 Below low normal ALT/SGPT MAHNAZ ( [facility]) total protein 5.4 gm/dL 6.4-8.2 Below low normal Total Protein AT [facility]) bilirubin,total 0.2 mg/dL 0.2-1.0 Bilirubin,total ATHE [facility]) albumin/globulin ratio 1.2-2.2 [facility] albumin 3.0 gm/dL 3.2-5.2 Below low normal Albumin RANDOLPH ( [facility]) ID Date Data Source [id number] 05/17/2020 07:08:00 AM EST [facility] ([facility]) Name Value Range Interpretation Code Description Data Demetrice rce(s) Supporting Document(s) erythrocyte sedimentation rate 9 mm/HR 0-20 Eryth rocyte Sedimentation Rate RANDOLPH ([facility]) ID Date Data Source [id number] 05/17/2020 07:08:00 AM EST [facility] ([facility]) Name Value Range Interpretation Code Description Data Demetrice rce(s) Supporting Document(s) white blood count 8.4 10 4.0-10.0 White Blood Count R[facility]PH ([facility]) red blood count 3.69 10 4.00-5.40 Below low normal Red Blood Coun t RANDOLPH ([facility]) hemoglobin 10.6 g/dL 12.0-15.5 Below low normal Hemoglobin RANDOLPH ( [facility]) mean corpuscular volume 93.0 fL 80.0-96.0 Mean Corpusc ular Volume RANDOLPH ([facility]) mean corpuscular hemoglobin 28.7 pg 27.0-33.0 Mean Cor puscular Hemoglobin RANDOLPH ([facility]) hematocrit 34.3 % 36.0-47.0 Below low normal Hematocrit RANDOLPH ( [facility]) platelet count, automated 205 10 150-450 [facility] C [facility]unt, [facility] mean corpuscular HGB conc 30.9 g/dL 32.0-36.5 Below low eduardo l Mean Corpuscular HGB Conc RANDOLPH ([facility]) neutrophils % 65.6 % 36.0-66.0 Neutrophils % RANDOLPH ( [facility]) red cell distribution width 14.2 % 11.5-14.5 Red Cell Distribution Width R[facility]OLPH ([facility]) lymph % 27.7 % 24.0-44.0 Lymph % R[facility]PH ([facility]) mono % 3.7 % 0.0-5.0 [place] % MAHNAZ ([facility]) eos % 2.1 % 0.0-3.0 Eos % MAHNAZ ([facility]) baso % 0.5 % 0.0-1.0 Baso % MAHNAZ ([facility]) immature granulocyte % 0.4 % 0-3.0 Immature Gran ulocyte % MAHNAZ ([facility]) nucleated red blood cell % 0.0 % 0-0 Nucleated Red Blood Cell % MAHNAZ ([facility]) lymph # 2.3 10 1.5-5.0 Lymph # MAHNAZ ([facility]) neutrophils # 5.5 10 1.5-8.5 Neutrophils # MAHNAZ ( [facility]) mono # 0.3 10 0.0-0.8 [place] # MAHNAZ ([facility]) baso # 0.0 10 0.0-0.2 Baso # MAHNAZ ([facility]) eos # 0.2 10 0.0-0.5 Eos # MAHNAZ ([facility]) ID Date Data Source [id number] 05/17/2020 07:08:00 AM EST MAHNAZ ([facility]) Name Value Range Interpretation Code Description Data Demetrice rce(s) Supporting Document(s) lactic acid sepsis protocol 0.8 mmol/L 0.4-2.0 Lactic A merlin Sepsis Protocol RANDOLPH ([facility]) ID Date Data Source [id number] 05/17/2020 07:08:00 AM EST MAHNAZ ([facility]) Name Value Range Interpretation Code Description Data Demetrice rce(s) Supporting Document(s) ammonia 43 umol/L <32 Above high normal Ammonia R[facility]PH ([facility]) ID Date Data Source [id number] 05/17/2020 07:08:00 AM EST MAHNAZ ([facility]) Name Value Range Interpretation Code Description Data Demetrice rce(s) Supporting Document(s) C reactive protein quantitativ 0.30 mg/dL 0.00-0.30 C Reactive Protein Quantitativ MAHNAZ ([facility]) ID Date Data Source [id number] 05/17/2020 07:08:00 AM EST MAHNAZ ([facility]) Name Value Range Interpretation Code Description Data Demetrice rce(s) Supporting Document(s) procalcitonin <0.05 Procalcitonin MAHNAZ ( [facility]) ID Date Data Source [id number] 05/17/2020 07:08:00 AM EST [place]PH ([facility]) Name Value Range Interpretation Code Description Data Demetrice rce(s) Supporting Document(s) CPK creatine phosphokinase 129 U/L 26-192 CPK Creat ine Phosphokinase MAHNAZ ([facility]) mb/CK relative index < or =4 mb/CK Relative Index MAHNAZ ([facility]) troponin I < 0.02 < 0.10 Troponin I MAHNAZ ([facility]) CK-mb value mass < 1.0 <3.6 CK-mb Value Mass AT [facility]) ID Date Data Source [id number] 05/17/2020 07:08:00 AM EST [facility]PH ([facility]) Name Value Range Interpretation Code Description Data Demetrice rce(s) Supporting Document(s) creatinine for GFR 0.66 mg/dL 0.55-1.30 Creatinine for GF R MAHNAZ ([facility]) glucose, fasting 82 mg/dL 70-100 Glucose, Fasting AT [facility] ([facility]) blood urea nitrogen 6 mg/dL 7-18 Below low normal Blood Urea Nitrogen MAHNAZ ([facility]) glomerular filtration rate > 60.0 >60 Glomerula r Filtration Rate MAHNAZ ([facility]) potassium serum 3.8 mEq/L 3.5-5.1 Potassium Serum ATHE ([facility]) carbon dioxide level 23 mEq/L 21-32 Carbon Dioxide Level MAHNAZ ([facility]) chloride level 114 mEq/L 98-107 Above high normal Chloride Level MAHNAZ ([facility]) sodium level 141 mEq/L 136-145 Sodium Level MAHNAZ ([facility]) anion gap 4 mEq/L 8-16 Below low normal Anion Gap MAHNAZ ( [facility]) alkaline phosphatase 74 U/L 45-117 Alkaline Phosph atase MAHNAZ ([facility]) AST/SGOT 6 U/L 7-37 Below low normal AST/SGOT MAHNAZ ( [facility]) calcium level 7.6 mg/dL 8.5-10.1 Below low normal Calcium Level AT [facility]) ALT/SGPT 9 U/L 12-78 Below low normal ALT/SGPT R[facility]OLPH ( [facility]) albumin/globulin ratio 1.2-2.2 Albumin/globu eren Ratio RANDOLPH ([facility]) bilirubin,total 0.2 mg/dL 0.2-1.0 [facility] total protein 5.4 gm/dL 6.4-8.2 Below low normal Total Protein AT [facility] ([facility]) albumin 3.0 gm/dL 3.2-5.2 Below low normal Albumin R[facility]PH ( [facility]) ID Date Data Source [id number] 05/17/2020 07:08:00 AM EST [facility]) Name Value Range Interpretation Code Description Data Demetrice rce(s) Supporting Document(s) erythrocyte sedimentation rate 9 mm/HR 0-20 Eryth rocyte Sedimentation Rate MAHNAZ ([facility]) ID Date Data Source [id number] 05/17/2020 07:08:00 AM EST [facility]) Name Value Range Interpretation Code Description Data Demetrice rce(s) Supporting Document(s) hemoglobin 10.6 g/dL 12.0-15.5 Below low normal Hemoglobin MAHNAZ ( [facility]) red blood count 3.69 10 4.00-5.40 Below low normal Red Blood Coun t R[facility]OLPH ([facility]) white blood count 8.4 10 4.0-10.0 White Blood Count MAHNAZ ([facility]) mean corpuscular volume 93.0 fL 80.0-96.0 Mean Corpusc ular Volume MAHNAZ ([facility]) mean corpuscular hemoglobin 28.7 pg 27.0-33.0 Mean Cor puscular Hemoglobin MAHNAZ ([facility]) hematocrit 34.3 % 36.0-47.0 Below low normal Hematocrit MAHNAZ ( [facility]) neutrophils % 65.6 % 36.0-66.0 Neutrophils % MAHNAZ ( [facility]) red cell distribution width 14.2 % 11.5-14.5 Red Cell Distribution Width MAHNAZ ([facility]) mean corpuscular HGB conc 30.9 g/dL 32.0-36.5 Below low eduardo l Mean Corpuscular HGB Conc MAHNAZ ([facility]) platelet count, automated 205 10 150-450 Platelet C ount, Automated MAHNAZ ([facility]) lymph % 27.7 % 24.0-44.0 Lymph % MAH[facility]Z ([facility]) eos % 2.1 % 0.0-3.0 Eos % MAH[facility]Z ([facility]) mono % 3.7 % 0.0-5.0 [place] % MAHNAZ ([facility]) baso % 0.5 % 0.0-1.0 Baso % MAH[facility]Z ([facility]) nucleated red blood cell % 0.0 % 0-0 Nucleated Red Blood Cell % MAH[facility]Z ([facility]) neutrophils # 5.5 10 1.5-8.5 Neutrophils # MAHNAZ ( [facility]) immature granulocyte % 0.4 % 0-3.0 Immature Gran ulocyte % MAHNAZ ([facility]) mono # 0.3 10 0.0-0.8 [place] # MAHNAZ ([facility]) eos # 0.2 10 0.0-0.5 Eos # MAH[facility]Z ([facility]) lymph # 2.3 10 1.5-5.0 Lymph # MAH[facility]Z ([facility]) baso # 0.0 10 0.0-0.2 Baso # MAH[facility]Z ([facility]) ID Date Data Source [id number] 05/17/2020 07:08:00 AM EST MAH[place]Z ([facility]) Name Value Range Interpretation Code Description Data Demetrice rce(s) Supporting Document(s) lactic acid sepsis protocol 0.8 mmol/L 0.4-2.0 Lactic A merlin Sepsis Protocol MAHNAZ ([facility]) ID Date Data Source [id number] 05/17/2020 07:08:00 AM EST MAH[place]Z ([facility]) Name Value Range Interpretation Code Description Data Demetrice rce(s) Supporting Document(s) ammonia 43 umol/L <32 Above high normal Ammonia R[facility]PH ([facility]) ID Date Data Source [id number] 05/17/2020 07:08:00 AM EST MAH[place]Z ([facility]) Name Value Range Interpretation Code Description Data Demetrice rce(s) Supporting Document(s) C reactive protein quantitativ 0.30 mg/dL 0.00-0.30 C Reactive Protein Quantitativ MAHNAZ ([facility]) ID Date Data Source [id number] 05/17/2020 07:08:00 AM EST MAH[place]Z ([facility]) Name Value Range Interpretation Code Description Data Demetrice rce(s) Supporting Document(s) procalcitonin <0.05 Procalcitonin MAHNAZ ( [facility]) ID Date Data Source [id number] 05/17/2020 07:08:00 AM EST MAH[place]Z ([facility]) Name Value Range Interpretation Code Description Data Demetrice rce(s) Supporting Document(s) CPK creatine phosphokinase 129 U/L 26-192 CPK Creat ine Phosphokinase RAND[facility]PH ([facility]) CK-mb value mass < 1.0 <3.6 CK-mb Value Mass AT [facility]) mb/CK relative index < or =4 mb/CK Relative Index R[facility]OLPH ([facility]) troponin I < 0.02 < 0.10 Troponin I [facility]PH ([facility]) ID Date Data Source [id number] 05/17/2020 07:08:00 AM EST [facility]) Name Value Range Interpretation Code Description Data Demetrice rce(s) Supporting Document(s) creatinine for GFR 0.66 mg/dL 0.55-1.30 Creatinine for GF R RANDOLPH ([facility]) glucose, fasting 82 mg/dL 70-100 Glucose, Fasting AT [facility]) blood urea nitrogen 6 mg/dL 7-18 Below low normal Blood Urea Nitrogen R[facility]PH ([facility]) glomerular filtration rate > 60.0 >60 Glomerula r Filtration Rate R[facility]PH ([facility]) chloride level 114 mEq/L 98-107 Above high normal Chloride Level [facility]PH ([facility]) potassium serum 3.8 mEq/L 3.5-5.1 [facility] sodium level 141 mEq/L 136-145 Sodium Level R[facility]PH ([facility]) anion gap 4 mEq/L 8-16 Below low normal Anion Gap RANDOLPH ( [facility]) carbon dioxide level 23 mEq/L 21-32 Carbon Dioxide Level R[facility]PH ([facility]) calcium level 7.6 mg/dL 8.5-10.1 Below low normal Calcium Level AT [facility]) ALT/SGPT 9 U/L 12-78 Below low normal ALT/SGPT MAHNAZ ( [facility]) AST/SGOT 6 U/L 7-37 Below low normal AST/SGOT R[facility]PH ( [facility]) total protein 5.4 gm/dL 6.4-8.2 Below low normal Total Protein AT [facility]) bilirubin,total 0.2 mg/dL 0.2-1.0 Bilirubin,total ATHE [facility]) alkaline phosphatase 74 U/L 45-117 Alkaline Phosph atase [facility]) albumin 3.0 gm/dL 3.2-5.2 Below low normal Albumin MAHNAZ ( [facility]) albumin/globulin ratio 1.2-2.2 Albumin/globu eren Ratio MAHNAZ ([facility]) ID Date Data Source [id number] 05/17/2020 07:08:00 AM EST MAH[place]Z ([facility]) Name Value Range Interpretation Code Description Data Demetrice rce(s) Supporting Document(s) erythrocyte sedimentation rate 9 mm/HR 0-20 Eryth rocyte Sedimentation Rate MAHNAZ ([facility]) ID Date Data Source [id number] 05/17/2020 07:08:00 AM EST [facility] ([facility]) Name Value Range Interpretation Code Description Data Demetrice rce(s) Supporting Document(s) white blood count 8.4 10 4.0-10.0 White Blood Count [facility]PH ([facility]) red blood count 3.69 10 4.00-5.40 Below low normal Red Blood Coun t MAHNAZ ([facility]) hematocrit 34.3 % 36.0-47.0 Below low normal Hematocrit R[facility]PH ( [facility]) hemoglobin 10.6 g/dL 12.0-15.5 Below low normal Hemoglobin R[facility]PH ( [facility]) mean corpuscular volume 93.0 fL 80.0-96.0 Mean Corpusc ular Volume MAHNAZ ([facility]) mean corpuscular hemoglobin 28.7 pg 27.0-33.0 Mean Cor puscular Hemoglobin MAHNAZ ([facility]) mean corpuscular HGB conc 30.9 g/dL 32.0-36.5 Below low eduardo l Mean Corpuscular HGB Conc MAHNAZ ([facility]) red cell distribution width 14.2 % 11.5-14.5 Red Cell Distribution Width [facility]PH ([facility]) mono % 3.7 % 0.0-5.0 [place] % MAHNAZ ([facility]) neutrophils % 65.6 % 36.0-66.0 Neutrophils % RANDOLPH ( [facility]) platelet count, automated 205 10 150-450 Platelet C ount, Automated MAHNAZ ([facility]) lymph % 27.7 % 24.0-44.0 Lymph % MAH[facility]Z ([facility]) eos % 2.1 % 0.0-3.0 Eos % MAH[facility]Z ([facility]) baso % 0.5 % 0.0-1.0 Baso % [facility]PH ([facility]) nucleated red blood cell % 0.0 % 0-0 Nucleated Red Blood Cell % MAHNAZ ([facility]) immature granulocyte % 0.4 % 0-3.0 Immature Gran ulocyte % [facility]PH ([facility]) mono # 0.3 10 0.0-0.8 [place] # [facility]PH ([facility]) neutrophils # 5.5 10 1.5-8.5 Neutrophils # RANDOLPH ( [facility]) eos # 0.2 10 0.0-0.5 Eos # [facility]PH ([facility]) lymph # 2.3 10 1.5-5.0 Lymph # MAH[place]Z ([facility]) baso # 0.0 10 0.0-0.2 Baso # MAHNAZ ([facility]) ID Date Data Source [id number] 05/17/2020 07:08:00 AM EST MAH[place]Z ([facility]) Name Value Range Interpretation Code Description Data Demetrice rce(s) Supporting Document(s) lactic acid sepsis protocol 0.8 mmol/L 0.4-2.0 Lactic A merlin Sepsis Protocol MAHNAZ ([facility]) ID Date Data Source [id number] 05/17/2020 07:08:00 AM EST [facility]Z ([facility]) Name Value Range Interpretation Code Description Data Demetrice rce(s) Supporting Document(s) ammonia 43 umol/L <32 Above high normal Ammonia MAHNAZ ([facility]) ID Date Data Source [id number] 05/17/2020 07:08:00 AM EST MAH[place]Z ([facility]) Name Value Range Interpretation Code Description Data Demetrice rce(s) Supporting Document(s) C reactive protein quantitativ 0.30 mg/dL 0.00-0.30 C Reactive Protein Quantitativ MAHNAZ ([facility]) ID Date Data Source [id number] 05/17/2020 07:08:00 AM EST MAHNAZ ([facility]) Name Value Range Interpretation Code Description Data Demetrice rce(s) Supporting Document(s) procalcitonin <0.05 Procalcitonin MAHNAZ ( [facility]) ID Date Data Source [id number] 05/17/2020 07[facility]08[facility] Name Value Range Interpretation Code Description Data Demetrice rce(s) Supporting Document(s) CPK creatine phosphokinase 129 U/L 26-192 CPK Creat ine Phosphokinase MAHNAZ ([facility]) mb/CK relative index < or =4 mb/CK Relative Index MAH[facility]Z ([facility]) troponin I < 0.02 < 0.10 Troponin I [facility] ([facility]) CK-mb value mass < 1.0 <3.6 CK-mb Value Mass AT [facility]) ID Date Data Source [id number] 05/17/2020 07:08:00 AM EST MAHNAZ ([facility]) Name Value Range Interpretation Code Description Data Demetrice rce(s) Supporting Document(s) creatinine for GFR 0.66 mg/dL 0.55-1.30 Creatinine for GF R MAHNAZ ([facility]) blood urea nitrogen 6 mg/dL 7-18 Below low normal Blood Urea Nitrogen [facility] ([facility]) glucose, fasting 82 mg/dL 70-100 Glucose, Fasting AT [facility] ([facility]) glomerular filtration rate > 60.0 >60 Glomerula r Filtration Rate MAHNAZ ([facility]) sodium level 141 mEq/L 136-145 Sodium Level MAHNAZ ([facility]) potassium serum 3.8 mEq/L 3.5-5.1 Potassium Serum AT[facility] ([facility]) anion gap 4 mEq/L 8-16 Below low normal Anion Gap MAHNAZ ( [facility]) chloride level 114 mEq/L 98-107 Above high normal Chloride Level MAHNAZ ([facility]) calcium level 7.6 mg/dL 8.5-10.1 Below low normal Calcium Level AT [facility] ([facility]) carbon dioxide level 23 mEq/L 21-32 Carbon Dioxide Level MAHNAZ ([facility]) ALT/SGPT 9 U/L 12-78 Below low normal ALT/SGPT MAHNAZ ( [facility]) AST/SGOT 6 U/L 7-37 Below low normal AST/SGOT MAHNAZ ( [facility]) bilirubin,total 0.2 mg/dL 0.2-1.0 Bilirubin,total AT[facility] ([facility]) alkaline phosphatase 74 U/L 45-117 Alkaline Phosph atase MAHNAZ ([facility]) albumin/globulin ratio 1.2-2.2 Albumin/globu eren Ratio [facility] ([facility]) total protein 5.4 gm/dL 6.4-8.2 Below low normal Total Protein AT [facility] ([facility]) albumin 3.0 gm/dL 3.2-5.2 Below low normal Albumin MAHNAZ ( [facility]) ID Date Data Source [id number] 05/17/2020 07:08:00 AM EST [facility] ([facility]) Name Value Range Interpretation Code Description Data Demetrice rce(s) Supporting Document(s) erythrocyte sedimentation rate 9 mm/HR 0-20 Eryth rocyte Sedimentation Rate MAHNAZ ([facility]) ID Date Data Source [id number] 05/17/2020 07:08:00 AM EST [facility]) Name Value Range Interpretation Code Description Data Demetrice rce(s) Supporting Document(s) white blood count 8.4 10 4.0-10.0 White Blood Count MAH[facility]Z ([facility]) red blood count 3.69 10 4.00-5.40 Below low normal Red Blood Coun t MAHNAZ ([facility]) hemoglobin 10.6 g/dL 12.0-15.5 Below low normal Hemoglobin MAHNAZ ( [facility]) hematocrit 34.3 % 36.0-47.0 Below low normal Hematocrit MAHNAZ ( [facility]) mean corpuscular hemoglobin 28.7 pg 27.0-33.0 Mean Cor puscular Hemoglobin MAHNAZ ([facility]) mean corpuscular HGB conc 30.9 g/dL 32.0-36.5 Below low eduardo l Mean Corpuscular HGB Conc MAHNAZ ([facility]) mean corpuscular volume 93.0 fL 80.0-96.0 Mean Corpusc ular Volume MAHNAZ ([facility]) neutrophils % 65.6 % 36.0-66.0 Neutrophils % MAHNAZ ( [facility]) platelet count, automated 205 10 150-450 Platelet C ount, Automated MAHNAZ ([facility]) red cell distribution width 14.2 % 11.5-14.5 Red Cell Distribution Width MAHNAZ ([facility]) lymph % 27.7 % 24.0-44.0 Lymph % [facility]Z ([facility]) mono % 3.7 % 0.0-5.0 [place] % [facility]Z ([facility]) eos % 2.1 % 0.0-3.0 Eos % MAH[facility]Z ([facility]) baso % 0.5 % 0.0-1.0 Baso % [facility] ([facility]) immature granulocyte % 0.4 % 0-3.0 Immature Gran ulocyte % MAHNAZ ([facility]) neutrophils # 5.5 10 1.5-8.5 Neutrophils # MAHNAZ ( [facility]) nucleated red blood cell % 0.0 % 0-0 Nucleated Red Blood Cell % MAH[facility]Z ([facility]) mono # 0.3 10 0.0-0.8 [place] # MAHNAZ ([facility]) lymph # 2.3 10 1.5-5.0 Lymph # [facility]Z ([facility]) eos # 0.2 10 0.0-0.5 Eos # [facility]Z ([facility]) baso # 0.0 10 0.0-0.2 Baso # [facility]Z ([facility]) ID Date Data Source [id number] 05/17/2020 07:08:00 AM EST MAHNAZ ([facility]) Name Value Range Interpretation Code Description Data Demetrice rce(s) Supporting Document(s) lactic acid sepsis protocol 0.8 mmol/L 0.4-2.0 Lactic A merlin Sepsis Protocol MAHNAZ ([facility]) ID Date Data Source [id number] 05/17/2020 07:08:00 AM EST MAHNAZ ([facility]) Name Value Range Interpretation Code Description Data Demetrice rce(s) Supporting Document(s) ammonia 43 umol/L <32 Above high normal Ammonia [facility] ([facility]) ID Date Data Source [id number] 05/17/2020 07:08:00 AM EST MAHNAZ ([facility]) Name Value Range Interpretation Code Description Data Demetrice rce(s) Supporting Document(s) C reactive protein quantitativ 0.30 mg/dL 0.00-0.30 C Reactive Protein Quantitativ [facility] ([facility]) ID Date Data Source [id number] 05/17/2020 07:08:00 AM EST MAHNAZ ([facility]) Name Value Range Interpretation Code Description Data Demetrice rce(s) Supporting Document(s) procalcitonin <0.05 Procalcitonin MAHNAZ ( [facility]) ID Date Data Source [id number] 05/17/2020 07:08:00 AM EST MAHNAZ ([facility]) Name Value Range Interpretation Code Description Data Demetrice rce(s) Supporting Document(s) CK-mb value mass < 1.0 <3.6 CK-mb Value Mass AT [facility] ([facility]) CPK creatine phosphokinase 129 U/L 26-192 CPK Creat ine Phosphokinase MAHNAZ ([facility]) mb/CK relative index < or =4 mb/CK Relative Index [facility]Z ([facility]) troponin I < 0.02 < 0.10 Troponin I MA[facility]Z ([facility]) ID Date Data Source [id number] 05/17/2020 07:08:00 AM EST MAHNAZ ([facility]) Name Value Range Interpretation Code Description Data Demetrice rce(s) Supporting Document(s) blood urea nitrogen 6 mg/dL 7-18 Below low normal Blood Urea Nitrogen MAHNAZ ([facility]) glucose, fasting 82 mg/dL 70-100 Glucose, Fasting AT [facility] ([facility]) glomerular filtration rate > 60.0 >60 Glomerula r Filtration Rate MAHNAZ ([facility]) sodium level 141 mEq/L 136-145 Sodium Level MAH[facility]Z ([facility]) creatinine for GFR 0.66 mg/dL 0.55-1.30 Creatinine for GF R MAHNAZ ([facility]) potassium serum 3.8 mEq/L 3.5-5.1 [facility] chloride level 114 mEq/L 98-107 Above high normal Chloride Level MAHNAZ ([facility]) carbon dioxide level 23 mEq/L 21-32 Carbon Dioxide Level MAHNAZ ([facility]) anion gap 4 mEq/L 8-16 Below low normal Anion Gap MAHNAZ ( [facility]) calcium level 7.6 mg/dL 8.5-10.1 Below low normal Calcium Level AT [facility]) alkaline phosphatase 74 U/L 45-117 Alkaline Phosph atase MAHNAZ ([facility]) bilirubin,total 0.2 mg/dL 0.2-1.0 Bilirubin,total AT[facility] ([facility]) ALT/SGPT 9 U/L 12-78 Below low normal ALT/SGPT MAHNAZ ( [facility]) AST/SGOT 6 U/L 7-37 Below low normal AST/SGOT MAHNAZ ( [facility]) albumin/globulin ratio 1.2-2.2 Albumin/globu eren Ratio MAHNAZ ([facility]) albumin 3.0 gm/dL 3.2-5.2 Below low normal Albumin MAHNAZ ( [facility]) total protein 5.4 gm/dL 6.4-8.2 Below low normal Total Protein AT [facility] ([facility]) ID Date Data Source [id number] 05/17/2020 07:08:00 AM EST [facility] ([facility]) Name Value Range Interpretation Code Description Data Demetrice rce(s) Supporting Document(s) erythrocyte sedimentation rate 9 mm/HR 0-20 Eryth rocyte Sedimentation Rate [facility] ([facility]) ID Date Data Source [id number] 05/17/2020 07:08:00 AM EST [facility] ([facility]) Name Value Range Interpretation Code Description Data Demetrice rce(s) Supporting Document(s) hemoglobin 10.6 g/dL 12.0-15.5 Below low normal Hemoglobin MAHNAZ ( [facility]) red blood count 3.69 10 4.00-5.40 Below low normal Red Blood Coun t [facility] ([facility]) white blood count 8.4 10 4.0-10.0 White Blood Count [facility] ([facility]) mean corpuscular volume 93.0 fL 80.0-96.0 Mean Corpusc ular Volume MAHNAZ ([facility]) mean corpuscular hemoglobin 28.7 pg 27.0-33.0 Mean Cor puscular Hemoglobin MAHNAZ ([facility]) hematocrit 34.3 % 36.0-47.0 Below low normal Hematocrit MAH[facility]Z ( [facility]) red cell distribution width 14.2 % 11.5-14.5 Red Cell Distribution Width MAHNAZ ([facility]) mean corpuscular HGB conc 30.9 g/dL 32.0-36.5 Below low eduardo l Mean Corpuscular HGB Conc MAHNAZ ([facility]) platelet count, automated 205 10 150-450 Platelet C ount, Automated MAHNAZ ([facility]) lymph % 27.7 % 24.0-44.0 Lymph % [facility]Z ([facility]) mono % 3.7 % 0.0-5.0 [place] % [facility]Z ([facility]) neutrophils % 65.6 % 36.0-66.0 Neutrophils % MAHNAZ ( [facility]) eos % 2.1 % 0.0-3.0 Eos % MHANAZ ([facility]) baso % 0.5 % 0.0-1.0 Baso % [facility]Z ([facility]) nucleated red blood cell % 0.0 % 0-0 Nucleated Red Blood Cell % MAH[facility]Z ([facility]) immature granulocyte % 0.4 % 0-3.0 Immature Gran ulocyte % MAHNAZ ([facility]) lymph # 2.3 10 1.5-5.0 Lymph # [facility] ([facility]) mono # 0.3 10 0.0-0.8 [place] # [facility] ([facility]) neutrophils # 5.5 10 1.5-8.5 Neutrophils # MAHNAZ ( [facility]) eos # 0.2 10 0.0-0.5 Eos # [facility]Z ([facility]) baso # 0.0 10 0.0-0.2 Baso # [facility]Z ([facility]) ID Date Data Source [id number] 05/17/2020 07:08:00 AM EST [facility] ([facility]) Name Value Range Interpretation Code Description Data Demetrice rce(s) Supporting Document(s) lactic acid sepsis protocol 0.8 mmol/L 0.4-2.0 Lactic A merlin Sepsis Protocol [facility] ([facility]) ID Date Data Source [id number] 05/17/2020 07:08:00 AM EST [facility] ([facility]) Name Value Range Interpretation Code Description Data Demetrice rce(s) Supporting Document(s) ammonia 43 umol/L <32 Above high normal Ammonia [facility] ([facility]) ID Date Data Source [id number] 05/17/2020 07:08:00 AM EST MAHNAZ ([facility]) Name Value Range Interpretation Code Description Data Demetrice rce(s) Supporting Document(s) C reactive protein quantitativ 0.30 mg/dL 0.00-0.30 C Reactive Protein Quantitativ MAHNAZ ([facility]) ID Date Data Source [id number] 05/17/2020 07:08:00 AM EST MAHNAZ ([facility]) Name Value Range Interpretation Code Description Data Demetrice rce(s) Supporting Document(s) procalcitonin <0.05 Procalcitonin MAHNAZ ( [facility]) ID Date Data Source [id number] 05/17/2020 07:08:00 AM EST MAHNAZ ([facility]) Name Value Range Interpretation Code Description Data Demetrice rce(s) Supporting Document(s) CK-mb value mass < 1.0 <3.6 CK-mb Value Mass AT [facility]) CPK creatine phosphokinase 129 U/L 26-192 CPK Creat ine Phosphokinase [facility] ([facility]) mb/CK relative index < or =4 mb/CK Relative Index [facility] ([facility]) troponin I < 0.02 < 0.10 Troponin I [facility] ([facility]) ID Date Data Source [id number] 05/17/2020 07:08:00 AM EST MAHNAZ ([facility]) Name Value Range Interpretation Code Description Data Demetrice rce(s) Supporting Document(s) blood urea nitrogen 6 mg/dL 7-18 Below low normal Blood Urea Nitrogen MAH[facility]Z ([facility]) creatinine for GFR 0.66 mg/dL 0.55-1.30 Creatinine for GF R MAHNAZ ([facility]) glucose, fasting 82 mg/dL 70-100 Glucose, Fasting AT [facility] ([facility]) glomerular filtration rate > 60.0 >60 Glomerula r Filtration Rate MAHNAZ ([facility]) sodium level 141 mEq/L 136-145 Sodium Level [facility]Z ([facility]) potassium serum 3.8 mEq/L 3.5-5.1 Potassium Serum [facility] ([facility]) chloride level 114 mEq/L 98-107 Above high normal Chloride Level MAH[facility]Z ([facility]) carbon dioxide level 23 mEq/L 21-32 Carbon Dioxide Level MA[facility]Z ([facility]) anion gap 4 mEq/L 8-16 Below low normal Anion Gap [facility]Z ( [facility]) AST/SGOT 6 U/L 7-37 Below low normal AST/SGOT [facility]Z ( [facility]) calcium level 7.6 mg/dL 8.5-10.1 Below low normal Calcium Level AT [facility]) ALT/SGPT 9 U/L 12-78 Below low normal ALT/SGPT [facility] ( [facility]) bilirubin,total 0.2 mg/dL 0.2-1.0 Bilirubin,total AT[facility] ([facility]) alkaline phosphatase 74 U/L 45-117 Alkaline Phosph atase MAH[facility]Z ([facility]) albumin 3.0 gm/dL 3.2-5.2 Below low normal Albumin [facility] ( [facility]) total protein 5.4 gm/dL 6.4-8.2 Below low normal Total Protein AT [facility] ([facility]) albumin/globulin ratio 1.2-2.2 Albumin/globu eren Ratio [facility] ([facility]) ID Date Data Source [id number] 05/17/2020 07:08:00 AM EST [facility]) Name Value Range Interpretation Code Description Data Demetrice rce(s) Supporting Document(s) erythrocyte sedimentation rate 9 mm/HR 0-20 Eryth rocyte Sedimentation Rate MAH[facility]Z ([facility]) ID Date Data Source [id number] 05/17/2020 07:08:00 AM EST [facility]) Name Value Range Interpretation Code Description Data Demetrice rce(s) Supporting Document(s) red blood count 3.69 10 4.00-5.40 Below low normal Red Blood Coun t [facility]Z ([facility]) white blood count 8.4 10 4.0-10.0 White Blood Count [facility] ([facility]) hemoglobin 10.6 g/dL 12.0-15.5 Below low normal Hemoglobin [facility]Z ( [facility]) mean corpuscular volume 93.0 fL 80.0-96.0 Mean Corpusc ular Volume [facility]Z ([facility]) hematocrit 34.3 % 36.0-47.0 Below low normal Hematocrit [facility]Z ( [facility]) mean corpuscular hemoglobin 28.7 pg 27.0-33.0 Mean Cor puscular Hemoglobin [facility]Z ([facility]) mean corpuscular HGB conc 30.9 g/dL 32.0-36.5 Below low eduardo l Mean Corpuscular HGB Conc [facility]Z ([facility]) platelet count, automated 205 10 150-450 Platelet C ount, Automated MAH[facility]Z ([facility]) neutrophils % 65.6 % 36.0-66.0 Neutrophils % [facility] ( [facility]) red cell distribution width 14.2 % 11.5-14.5 Red Cell Distribution Width MAH[facility]Z ([facility]) mono % 3.7 % 0.0-5.0 [place] % [facility] ([facility]) lymph % 27.7 % 24.0-44.0 Lymph % [facility]Z ([facility]) baso % 0.5 % 0.0-1.0 Baso % [facility] ([facility]) eos % 2.1 % 0.0-3.0 Eos % [facility] ([facility]) neutrophils # 5.5 10 1.5-8.5 Neutrophils # MAH[facility]Z ( [facility]) nucleated red blood cell % 0.0 % 0-0 Nucleated Red Blood Cell % [facility] ([facility]) immature granulocyte % 0.4 % 0-3.0 Immature Gran ulocyte % [facility]Z ([facility]) lymph # 2.3 10 1.5-5.0 Lymph # [facility] ([facility]) eos # 0.2 10 0.0-0.5 Eos # [facility] ([facility]) mono # 0.3 10 0.0-0.8 [place] # [facility] ([facility]) baso # 0.0 10 0.0-0.2 Baso # [facility] ([facility]) ID Date Data Source [id number] 05/17/2020 07:08:00 AM EST [facility]Z ([facility]) Name Value Range Interpretation Code Description Data Demetrice rce(s) Supporting Document(s) lactic acid sepsis protocol 0.8 mmol/L 0.4-2.0 Lactic A merlin Sepsis Protocol [facility]Z ([facility]) ID Date Data Source [id number] 05/17/2020 07:08:00 AM EST [facility]Z ([facility]) Name Value Range Interpretation Code Description Data Demetrice rce(s) Supporting Document(s) ammonia 43 umol/L <32 Above high normal Ammonia [facility]Z ([facility]) ID Date Data Source [id number] 05/17/2020 07:08:00 AM EST [facility]Z ([facility]) Name Value Range Interpretation Code Description Data Demetrice rce(s) Supporting Document(s) C reactive protein quantitativ 0.30 mg/dL 0.00-0.30 C Reactive Protein Quantitativ [facility]Z ([facility]) ID Date Data Source [id number] 05/17/2020 07:08:00 AM EST [facility]Z ([facility]) Name Value Range Interpretation Code Description Data Demetrice rce(s) Supporting Document(s) procalcitonin <0.05 Procalcitonin [facility]Z ( [facility]) ID Date Data Source [id number] 05/17/2020 07:08:00 AM EST [facility]Z ([facility]) Name Value Range Interpretation Code Description Data Demetrice rce(s) Supporting Document(s) CK-mb value mass < 1.0 <3.6 CK-mb Value Mass AT [facility] ([facility]) troponin I < 0.02 < 0.10 Troponin I [facility] ([facility]) mb/CK relative index < or =4 mb/CK Relative Index [facility] ([facility]) CPK creatine phosphokinase 129 U/L 26-192 CPK Creat ine Phosphokinase [facility] ([facility]) ID Date Data Source [id number] 05/17/2020 07:08:00 AM EST [facility] ([facility]) Name Value Range Interpretation Code Description Data Demetrice rce(s) Supporting Document(s) glomerular filtration rate > 60.0 >60 Glomerula r Filtration Rate [facility] ([facility]) glucose, fasting 82 mg/dL 70-100 Glucose, Fasting AT [facility] ([facility]) blood urea nitrogen 6 mg/dL 7-18 Below low normal Blood Urea Nitrogen [facility] ([facility]) creatinine for GFR 0.66 mg/dL 0.55-1.30 Creatinine for GF R MAH[facility]Z ([facility]) carbon dioxide level 23 mEq/L 21-32 Carbon Dioxide Level [facility] ([facility]) sodium level 141 mEq/L 136-145 Sodium Level [facility] ([facility]) potassium serum 3.8 mEq/L 3.5-5.1 [facility] anion gap 4 mEq/L 8-16 Below low normal Anion Gap [facility] ( [facility]) chloride level 114 mEq/L 98-107 Above high normal Chloride Level [facility] ([facility]) alkaline phosphatase 74 U/L 45-117 Alkaline Phosph atase [facility]Z ([facility]) AST/SGOT 6 U/L 7-37 Below low normal AST/SGOT [facility] ( [facility]) ALT/SGPT 9 U/L 12-78 Below low normal ALT/SGPT [facility] ( [facility]) calcium level 7.6 mg/dL 8.5-10.1 Below low normal Calcium Level AT [facility]) bilirubin,total 0.2 mg/dL 0.2-1.0 Bilirubin,total ATHE NA ([facility]) albumin 3.0 gm/dL 3.2-5.2 Below low normal Albumin MAH[facility]Z ( [facility]) albumin/globulin ratio 1.2-2.2 Albumin/globu eren Ratio [facility]Z ([facility]) total protein 5.4 gm/dL 6.4-8.2 Below low normal Total Protein AT [facility] ([facility]) ID Date Data Source [id number] 05/17/2020 07:08:00 AM EST [facility] ([facility]) Name Value Range Interpretation Code Description Data Demetrice rce(s) Supporting Document(s) erythrocyte sedimentation rate 9 mm/HR 0-20 Eryth rocyte Sedimentation Rate [facility] ([facility]) ID Date Data Source [id number] 05/17/2020 07:08:00 AM EST [facility] ([facility]) Name Value Range Interpretation Code Description Data Demetrice rce(s) Supporting Document(s) red blood count 3.69 10 4.00-5.40 Below low normal Red Blood Coun t [facility] ([facility]) white blood count 8.4 10 4.0-10.0 White Blood Count [facility] ([facility]) mean corpuscular volume 93.0 fL 80.0-96.0 Mean Corpusc ular Volume [facility] ([facility]) hemoglobin 10.6 g/dL 12.0-15.5 Below low normal Hemoglobin [facility]Z ( [facility]) hematocrit 34.3 % 36.0-47.0 Below low normal Hematocrit [facility] ( [facility]) mean corpuscular hemoglobin 28.7 pg 27.0-33.0 Mean Cor puscular Hemoglobin [facility] ([facility]) red cell distribution width 14.2 % 11.5-14.5 Red Cell Distribution Width [facility] ([facility]) platelet count, automated 205 10 150-450 Platelet C ount, Automated [facility]Z ([facility]) mean corpuscular HGB conc 30.9 g/dL 32.0-36.5 Below low eduardo l Mean Corpuscular HGB Conc [facility] ([facility]) lymph % 27.7 % 24.0-44.0 Lymph % [facility] ([facility]) eos % 2.1 % 0.0-3.0 Eos % [facility] ([facility]) neutrophils % 65.6 % 36.0-66.0 Neutrophils % MAH[facility]Z ( [facility]) mono % 3.7 % 0.0-5.0 [place] % [facility] ([facility]) immature granulocyte % 0.4 % 0-3.0 Immature Gran ulocyte % [facility] ([facility]) nucleated red blood cell % 0.0 % 0-0 Nucleated Red Blood Cell % [facility] ([facility]) neutrophils # 5.5 10 1.5-8.5 Neutrophils # [facility] ( [facility]) baso % 0.5 % 0.0-1.0 Baso % [facility] ([facility]) baso # 0.0 10 0.0-0.2 Baso # [facility] ([facility]) mono # 0.3 10 0.0-0.8 [place] # [facility] ([facility] [facility]) lymph # 2.3 10 1.5-5.0 Lymph # MAHNAZ ([facility]) eos # 0.2 10 0.0-0.5 Eos # MAHNAZ ([facility]) ID Date Data Source [id number] 05/17/2020 07:08:00 AM EST MAHNAZ ([facility]) Name Value Range Interpretation Code Description Data Demetrice rce(s) Supporting Document(s) lactic acid sepsis protocol 0.8 mmol/L 0.4-2.0 Lactic A merlin Sepsis Protocol RANDOLPH ([facility]) ID Date Data Source [id number] 05/17/2020 07:08:00 AM EST [place] ([facility]) Name Value Range Interpretation Code Description Data Demetrice rce(s) Supporting Document(s) ammonia 43 umol/L <32 Above high normal Ammonia MAHNAZ ([facility]) ID Date Data Source [id number] 05/17/2020 05:50:00 AM EST MAHNAZ ([facility]) Name Value Range Interpretation Code Description Data Demetrice rce(s) Supporting Document(s) ABG partial pressure CO2 38.2 mmHg 35.0-45.0 ABG Partial Pressure CO2 MAHNAZ ([facility]) ABG pH (arterial) 7.354 units 7.350-7.450 ABG pH (Arterial ) MAHNAZ ([facility]) ABG partial pressure O2 82.7 mmHg 75.0-100.0 ABG Partial Pressure O2 MAHNAZ ([facility]) ABG total CO2 22.0 mEq/L 22.0-29.0 ABG Total CO2 MAHNAZ ( [facility]) ABG HCO3 20.8 mEq/L 22.0-26.0 Below low normal Abg Hco3 RANDOLPH ( [facility]) ABG standard HCO3 20.9 mEq/L 22.0-26.0 Below low normal ABG Standard HCO3 MAHNAZ ([facility]) ABG base excess -2.0-2.0 Below low normal ABG Base Exces s R[place]PH ([facility]) ABG O2 saturation 96.2 % 95.0-99.0 ABG O2 Saturation [facility] ([facility]) ID Date Data Source [id number] 05/17/2020 05:50:00 AM EST MAHNAZ ([facility]) Name Value Range Interpretation Code Description Data Demetrice rce(s) Supporting Document(s) ABG pH (arterial) 7.354 units 7.350-7.450 ABG pH (Arterial ) MAHNAZ ([facility]) ABG partial pressure CO2 38.2 mmHg 35.0-45.0 ABG Partial Pressure CO2 MAH[place]Z ([facility]) ABG total CO2 22.0 mEq/L 22.0-29.0 ABG Total CO2 MAHNAZ ( [facility]) ABG partial pressure O2 82.7 mmHg 75.0-100.0 ABG Partial Pressure O2 MAH[place]Z ([facility]) ABG base excess -2.0-2.0 Below low normal ABG Base Exces s MAHNAZ ([facility]) ABG standard HCO3 20.9 mEq/L 22.0-26.0 Below low normal ABG Standard HCO3 MAHNAZ ([facility]) ABG HCO3 20.8 mEq/L 22.0-26.0 Below low normal Abg Hco3 MAHNAZ ( [facility]) ABG O2 saturation 96.2 % 95.0-99.0 ABG O2 Saturation MAHNAZ ([facility]) ID Date Data Source [id number] 05/17/2020 05:50:00 AM EST [facility]) Name Value Range Interpretation Code Description Data Demetrice rce(s) Supporting Document(s) ABG partial pressure CO2 38.2 mmHg 35.0-45.0 ABG Partial Pressure CO2 MAHNAZ ([facility]) ABG pH (arterial) 7.354 units 7.350-7.450 ABG pH (Arterial ) MAHNAZ ([facility]) ABG partial pressure O2 82.7 mmHg 75.0-100.0 ABG Partial Pressure O2 MAH[place]Z ([facility]) ABG total CO2 22.0 mEq/L 22.0-29.0 ABG Total CO2 MAHNAZ ( [facility]) ABG standard HCO3 20.9 mEq/L 22.0-26.0 Below low normal ABG Standard HCO3 MAH[place]Z ([facility]) ABG base excess -2.0-2.0 Below low normal ABG Base Exces s MAHNAZ ([facility]) ABG HCO3 20.8 mEq/L 22.0-26.0 Below low normal Abg Hco3 MAHNAZ ( [facility]) ABG O2 saturation 96.2 % 95.0-99.0 ABG O2 Saturation MAHNAZ ([facility]) ID Date Data Source [id number] 05/17/2020 [facility]:50[facility] Name Value Range Interpretation Code Description Data Demetrice rce(s) Supporting Document(s) ABG pH (arterial) 7.354 units 7.350-7.450 ABG pH (Arterial ) MAHNAZ ([facility]) ABG total CO2 22.0 mEq/L 22.0-29.0 ABG Total CO2 MAHNAZ ( [facility]) ABG partial pressure O2 82.7 mmHg 75.0-100.0 ABG Partial Pressure O2 MAH[place]Z ([facility]) ABG partial pressure CO2 38.2 mmHg 35.0-45.0 ABG Partial Pressure CO2 [place] ([facility]) ABG HCO3 20.8 mEq/L 22.0-26.0 Below low normal Abg Hco3 MAHNAZ ( [facility]) ABG base excess -2.0-2.0 Below low normal ABG Base Exces s [place]PH ([facility]) ABG O2 saturation 96.2 % 95.0-99.0 ABG O2 Saturation [place] ([facility]) ABG standard HCO3 20.9 mEq/L 22.0-26.0 Below low normal ABG Standard HCO3 [facility] ([facility]) ID Date Data Source [id number] 05/17/2020 05:50:00 AM EST [facility]) Name Value Range Interpretation Code Description Data Demetrice rce(s) Supporting Document(s) ABG pH (arterial) 7.354 units 7.350-7.450 ABG pH (Arterial ) MAHNAZ ([facility]) ABG total CO2 22.0 mEq/L 22.0-29.0 ABG Total CO2 MAHNAZ ( [facility]) ABG partial pressure O2 82.7 mmHg 75.0-100.0 ABG Partial Pressure O2 MAH[place]Z ([facility]) ABG partial pressure CO2 38.2 mmHg 35.0-45.0 ABG Partial Pressure CO2 MAH[place]Z ([facility]) ABG HCO3 20.8 mEq/L 22.0-26.0 Below low normal Abg Hco3 MAHNAZ ( [facility]) ABG base excess -2.0-2.0 Below low normal ABG Base Exces s [facility]PH ([facility]) ABG standard HCO3 20.9 mEq/L 22.0-26.0 Below low normal ABG Standard HCO3 MAHNAZ ([facility]) ABG O2 saturation 96.2 % 95.0-99.0 ABG O2 Saturation MAHNAZ ([facility]) ID Date Data Source [id number] 05/17/2020 05:50:00 AM EST [place]PH ([facility]) Name Value Range Interpretation Code Description Data Demetrice rce(s) Supporting Document(s) ABG pH (arterial) 7.354 units 7.350-7.450 ABG pH (Arterial ) MAHNAZ ([facility]) ABG partial pressure CO2 38.2 mmHg 35.0-45.0 ABG Partial Pressure CO2 [place] ([facility]) ABG total CO2 22.0 mEq/L 22.0-29.0 ABG Total CO2 MAHNAZ ( [facility]) ABG partial pressure O2 82.7 mmHg 75.0-100.0 ABG Partial Pressure O2 MAH[place]Z ([facility]) ABG standard HCO3 20.9 mEq/L 22.0-26.0 Below low normal ABG Standard HCO3 MAH[place]Z ([facility]) ABG HCO3 20.8 mEq/L 22.0-26.0 Below low normal Abg Hco3 MAHNAZ ( [facility]) ABG base excess -2.0-2.0 Below low normal ABG Base Exces s MAHNAZ ([facility]) ABG O2 saturation 96.2 % 95.0-99.0 ABG O2 Saturation MAH[place]Z ([facility]) ID Date Data Source [id number] 05/17/2020 05:50:00 AM EST MAHNAZ ([facility]) Name Value Range Interpretation Code Description Data Demetrice rce(s) Supporting Document(s) ABG pH (arterial) 7.354 units 7.350-7.450 ABG pH (Arterial ) MAHNAZ ([facility]) ABG partial pressure CO2 38.2 mmHg 35.0-45.0 ABG Partial Pressure CO2 MAH[place]Z ([facility]) ABG HCO3 20.8 mEq/L 22.0-26.0 Below low normal Abg Hco3 MAHNAZ ( [facility]) ABG partial pressure O2 82.7 mmHg 75.0-100.0 ABG Partial Pressure O2 MAH[place]Z ([facility]) ABG total CO2 22.0 mEq/L 22.0-29.0 ABG Total CO2 MAHNAZ ( [facility]) ABG base excess -2.0-2.0 Below low normal ABG Base Exces s MAHNAZ ([facility]) ABG O2 saturation 96.2 % 95.0-99.0 ABG O2 Saturation MAHNAZ ([facility]) ABG standard HCO3 20.9 mEq/L 22.0-26.0 Below low normal ABG Standard HCO3 MAHNAZ ([facility]) ID Date Data Source [id number] 05/17/2020 05:50:00 AM EST [place]PH ([facility]) Name Value Range Interpretation Code Description Data Demetrice rce(s) Supporting Document(s) ABG partial pressure CO2 38.2 mmHg 35.0-45.0 ABG Partial Pressure CO2 MAHNAZ ([facility]) ABG pH (arterial) 7.354 units 7.350-7.450 ABG pH (Arterial ) MAHNAZ ([facility]) ABG partial pressure O2 82.7 mmHg 75.0-100.0 ABG Partial Pressure O2 MAHNAZ ([facility]) ABG total CO2 22.0 mEq/L 22.0-29.0 ABG Total CO2 MAHNAZ ( [facility]) ABG HCO3 20.8 mEq/L 22.0-26.0 Below low normal Abg Hco3 MAHNAZ ( [facility]) ABG base excess -2.0-2.0 Below low normal ABG Base Exces s MAHNAZ ([facility]) ABG standard HCO3 20.9 mEq/L 22.0-26.0 Below low normal ABG Standard HCO3 MAH[place]Z ([facility]) ABG O2 saturation 96.2 % 95.0-99.0 ABG O2 Saturation MAHNAZ ([facility]) ID Date Data Source [id number] 05/17/2020 05:50:00 AM EST MAHNAZ ([facility]) Name Value Range Interpretation Code Description Data Demetrice rce(s) Supporting Document(s) ABG pH (arterial) 7.354 units 7.350-7.450 ABG pH (Arterial ) MAHNAZ ([facility]) ABG partial pressure CO2 38.2 mmHg 35.0-45.0 ABG Partial Pressure CO2 MAH[place]Z ([facility]) ABG total CO2 22.0 mEq/L 22.0-29.0 ABG Total CO2 MAHNAZ ( [facility]) ABG partial pressure O2 82.7 mmHg 75.0-100.0 ABG Partial Pressure O2 MAH[place]Z ([facility]) ABG base excess -2.0-2.0 Below low normal ABG Base Exces s MAHNAZ ([facility]) ABG standard HCO3 20.9 mEq/L 22.0-26.0 Below low normal ABG Standard HCO3 MAH[place]Z ([facility]) ABG HCO3 20.8 mEq/L 22.0-26.0 Below low normal Abg Hco3 MAHNAZ ( [facility]) ABG O2 saturation 96.2 % 95.0-99.0 ABG O2 Saturation MAH[facility]Z ([facility]) ID Date Data Source [id number] 05/17/2020 05:50:00 AM EST MAHNAZ ([facility]) Name Value Range Interpretation Code Description Data Demetrice rce(s) Supporting Document(s) ABG pH (arterial) 7.354 units 7.350-7.450 ABG pH (Arterial ) MAHNAZ ([facility]) ABG partial pressure CO2 38.2 mmHg 35.0-45.0 ABG Partial Pressure CO2 MAHNAZ ([facility]) ABG HCO3 20.8 mEq/L 22.0-26.0 Below low normal Abg Hco3 MAHNAZ ( [facility]) ABG total CO2 22.0 mEq/L 22.0-29.0 ABG Total CO2 MAHNAZ ( [facility]) ABG partial pressure O2 82.7 mmHg 75.0-100.0 ABG Partial Pressure O2 MAHNAZ ([facility]) ABG base excess -2.0-2.0 Below low normal ABG Base Exces s MAHNAZ ([facility]) ABG O2 saturation 96.2 % 95.0-99.0 ABG O2 Saturation MAHNAZ ([facility]) ABG standard HCO3 20.9 mEq/L 22.0-26.0 Below low normal ABG Standard HCO3 MAHNAZ ([facility]) ID Date Data Source [id number] 05/17/2020 05:50:00 AM EST MAHNAZ ([facility]) Name Value Range Interpretation Code Description Data Demetrice rce(s) Supporting Document(s) ABG pH (arterial) 7.354 units 7.350-7.450 ABG pH (Arterial ) MAHNAZ ([facility]) ABG partial pressure CO2 38.2 mmHg 35.0-45.0 ABG Partial Pressure CO2 MAH[place]Z ([facility]) ABG partial pressure O2 82.7 mmHg 75.0-100.0 ABG Partial Pressure O2 MAHNAZ ([facility]) ABG total CO2 22.0 mEq/L 22.0-29.0 ABG Total CO2 MAHNAZ ( [facility]) ABG base excess -2.0-2.0 Below low normal ABG Base Exces s MAHNAZ ([facility]) ABG HCO3 20.8 mEq/L 22.0-26.0 Below low normal Abg Hco3 MAHNAZ ( [facility]) ABG standard HCO3 20.9 mEq/L 22.0-26.0 Below low normal ABG Standard HCO3 MAHNAZ ([facility]) ABG O2 saturation 96.2 % 95.0-99.0 ABG O2 Saturation MAHNAZ ([facility]) ID Date Data Source [id number] 05/17/2020 05:50:00 AM EST MAHNAZ ([facility]) Name Value Range Interpretation Code Description Data Demetrice rce(s) Supporting Document(s) ABG pH (arterial) 7.354 units 7.350-7.450 ABG pH (Arterial ) MAHNAZ ([facility]) ABG partial pressure O2 82.7 mmHg 75.0-100.0 ABG Partial Pressure O2 MAHNAZ ([facility]) ABG total CO2 22.0 mEq/L 22.0-29.0 ABG Total CO2 [place]PH ( [facility]) ABG partial pressure CO2 38.2 mmHg 35.0-45.0 ABG Partial Pressure CO2 MAHNAZ ([facility]) ABG standard HCO3 20.9 mEq/L 22.0-26.0 Below low normal ABG Standard HCO3 [place] ([facility]) ABG base excess -2.0-2.0 Below low normal ABG Base Exces s [facility]PH ([facility]) ABG HCO3 20.8 mEq/L 22.0-26.0 Below low normal Abg Hco3 [place] ( [facility]) ABG O2 saturation 96.2 % 95.0-99.0 ABG O2 Saturation [facility] ([facility]) ID Date Data Source [id number] 05/17/2020 05:11:00 AM EST [facility]) Name Value Range Interpretation Code Description Data Demetrice rce(s) Supporting Document(s) sars covid-19 amplification negative negative Sars Cov id-19 Amplification [facility]) ID Date Data Source [id number] 05/17/2020 05:11:00 AM EST [facility]) Name Value Range Interpretation Code Description Data Demetrice rce(s) Supporting Document(s) sars covid-19 amplification negative negative Sars Cov id-19 Amplification [facility]) ID Date Data Source [id number] 05/17/2020 05:11:00 AM EST [facility]) Name Value Range Interpretation Code Description Data Demetrice rce(s) Supporting Document(s) sars covid-19 amplification negative negative Sars Cov id-19 Amplification [facility]) ID Date Data Source [id number] 05/17/2020 05:11:00 AM EST MAHNAZ ([facility]) Name Value Range Interpretation Code Description Data Demetrice rce(s) Supporting Document(s) sars covid-19 amplification negative negative [facility] Data Source [id number] 05/17/2020 05:11:00 AM EST MAHNAZ ([facility]) Name Value Range Interpretation Code Description Data Demetrice rce(s) Supporting Document(s) sars covid-19 amplification negative negative Sars Cov id-19 Amplification [place] ([facility]) ID Date Data Source [id number] 05/17/2020 05:11[facility]00 [facility] Name Value Range Interpretation Code Description Data Demetrice rce(s) Supporting Document(s) sars covid-19 amplification negative negative [facility] Cov id[facility] Date Data Source [id number] 05/17/2020 05:11:00 AM EST MAHNAZ ([facility]) Name Value Range Interpretation Code Description Data Demetrice rce(s) Supporting Document(s) sars covid-19 amplification negative negative [facility]ars Cov id[facility] Date Data Source [id number] 05/17/2020 05:11:00 AM EST MAHNAZ ([facility]) Name Value Range Interpretation Code Description Data Demetrice rce(s) Supporting Document(s) sars covid-19 amplification negative negative [facility]ars Cov id[facility] Date Data Source [id number] 05/17/2020 05:11:00 [facility] Name Value Range Interpretation Code Description Data Demetrice rce(s) Supporting Document(s) sars covid-19 amplification negative negative Sars Cov id-19 Amplification [place] ([facility]) ID Date Data Source [id number] 05/17/2020 05:11:00 AM EST [place] ([facility]) Name Value Range Interpretation Code Description Data Demetrice rce(s) Supporting Document(s) sars covid-19 amplification negative negative [facility]ars Cov id[facility] Date Data Source [id number] 05/17/2020 05:11:00 AM EST [facility]) Name Value Range Interpretation Code Description Data Demetrice rce(s) Supporting Document(s) sars covid-19 amplification negative negative Sars Cov id-19 Amplification [facility]) ID Date Data Source [id number] 05/17/2020 05:11:00 AM EST [place] ([facility]) Name Value Range Interpretation Code Description Data Demetrice rce(s) Supporting Document(s) sars covid-19 amplification negative negative Sars Cov id-19 Amplification [facility] ([facility]) ID Date Data Source [id number] 05/17/2020 03:28:00 AM EST [facility]) Name Value Range Interpretation Code Description Data Demetrice rce(s) Supporting Document(s) ABG pH (arterial) 7.375 units 7.350-7.450 ABG pH (Arterial ) MAH[place]Z ([facility]) ABG partial pressure O2 142.3 mmHg 75.0-100.0 Above high normal ABG Partial Pressure O2 MAH[place]Z ([facility]) ABG total CO2 22.6 mEq/L 22.0-29.0 ABG Total CO2 MAH[place]Z ( [facility]) ABG partial pressure CO2 37.6 mmHg 35.0-45.0 ABG Partial Pressure CO2 [facility]H[place]Z ([facility]) ABG HCO3 21.5 mEq/L 22.0-26.0 Below low normal Abg Hco3 MAH[place]Z ( [facility]) ABG standard HCO3 21.8 mEq/L 22.0-26.0 Below low normal ABG Standard HCO3 MAH[place]Z ([facility]) ABG base excess -2.0-2.0 Below low normal ABG Base Exces s MAH[place]Z ([facility]) ABG O2 saturation 99.0 % 95.0-99.0 ABG O2 Saturation [facility]Z ([facility]) ID Date Data Source [id number] 05/17/2020 03:28:00 AM EST [place] ([facility]) Name Value Range Interpretation Code Description Data Demetrice rce(s) Supporting Document(s) ABG pH (arterial) 7.375 units 7.350-7.450 ABG pH (Arterial ) MAH[place]Z ([facility]) ABG partial pressure CO2 37.6 mmHg 35.0-45.0 ABG Partial Pressure CO2 [place] ([facility]) ABG partial pressure O2 142.3 mmHg 75.0-100.0 Above high normal ABG Partial Pressure O2 [facility] ([facility]) ABG total CO2 22.6 mEq/L 22.0-29.0 ABG Total CO2 [place]Z ( [facility]) ABG standard HCO3 21.8 mEq/L 22.0-26.0 Below low normal ABG Standard HCO3 [facility]Z ([facility]) ABG HCO3 21.5 mEq/L 22.0-26.0 Below low normal Abg Hco3 [place]Z ( [facility]) ABG base excess -2.0-2.0 Below low normal ABG Base Exces s [facility]Z ([facility]) ABG O2 saturation 99.0 % 95.0-99.0 ABG O2 Saturation [facility] ([facility]) ID Date Data Source [id number] 05/17/2020 03:28:00 AM EST MAH[place]Z ([facility]) Name Value Range Interpretation Code Description Data Demetrice rce(s) Supporting Document(s) ABG pH (arterial) 7.375 units 7.350-7.450 ABG pH (Arterial ) [facility]Z ([facility]) ABG partial pressure O2 142.3 mmHg 75.0-100.0 Above high normal ABG Partial Pressure O2 [place] ([facility]) ABG partial pressure CO2 37.6 mmHg 35.0-45.0 ABG Partial Pressure CO2 [facility] ([facility]) ABG total CO2 22.6 mEq/L 22.0-29.0 ABG Total CO2 [place]Z ( [facility]) ABG HCO3 21.5 mEq/L 22.0-26.0 Below low normal Abg Hco3 [place]Z ( [facility]) ABG standard HCO3 21.8 mEq/L 22.0-26.0 Below low normal ABG Standard HCO3 [facility] ([facility]) ABG base excess -2.0-2.0 Below low normal ABG Base Exces s [facility] ([facility]) ABG O2 saturation 99.0 % 95.0-99.0 ABG O2 Saturation [facility] ([facility]) ID Date Data Source [id number] 05/17/2020 03:28:00 AM EST [place] ([facility]) Name Value Range Interpretation Code Description Data Demetrice rce(s) Supporting Document(s) ABG pH (arterial) 7.375 units 7.350-7.450 ABG pH (Arterial ) [facility] ([facility]) ABG partial pressure CO2 37.6 mmHg 35.0-45.0 ABG Partial Pressure CO2 [facility] ([facility]) ABG partial pressure O2 142.3 mmHg 75.0-100.0 Above high normal ABG Partial Pressure O2 [place] ([facility]) ABG total CO2 22.6 mEq/L 22.0-29.0 ABG Total CO2 [place] ( [facility]) ABG base excess -2.0-2.0 Below low normal ABG Base Exces s [facility] ([facility]) ABG HCO3 21.5 mEq/L 22.0-26.0 Below low normal Abg Hco3 [facility] ( [facility]) ABG standard HCO3 21.8 mEq/L 22.0-26.0 Below low normal ABG Standard HCO3 [facility] ([facility]) ABG O2 saturation 99.0 % 95.0-99.0 ABG O2 Saturation [facility] ([facility]) ID Date Data Source [id number] 05/17/2020 03:28:00 AM EST [place] ([facility]) Name Value Range Interpretation Code Description Data Demetrice rce(s) Supporting Document(s) ABG pH (arterial) 7.375 units 7.350-7.450 ABG pH (Arterial ) [facility] ([facility]) ABG partial pressure O2 142.3 mmHg 75.0-100.0 Above high normal ABG Partial Pressure O2 [place] ([facility]) ABG partial pressure CO2 37.6 mmHg 35.0-45.0 ABG Partial Pressure CO2 [facility] ([facility]) ABG total CO2 22.6 mEq/L 22.0-29.0 ABG Total CO2 [place] ( [facility]) ABG HCO3 21.5 mEq/L 22.0-26.0 Below low normal Abg Hco3 [facility] ( [facility]) ABG base excess -2.0-2.0 Below low normal ABG Base Exces s [facility] ([facility]) ABG standard HCO3 21.8 mEq/L 22.0-26.0 Below low normal ABG Standard HCO3 [facility] ([facility]) ABG O2 saturation 99.0 % 95.0-99.0 ABG O2 Saturation [facility] ([facility]) ID Date Data Source [id number] 05/17/2020 03:28:00 AM EST [place] ([facility]) Name Value Range Interpretation Code Description Data Demetrice rce(s) Supporting Document(s) ABG pH (arterial) 7.375 units 7.350-7.450 ABG pH (Arterial ) [facility] ([facility]) ABG partial pressure CO2 37.6 mmHg 35.0-45.0 ABG Partial Pressure CO2 [facility] ([facility]) ABG partial pressure O2 142.3 mmHg 75.0-100.0 Above high normal ABG Partial Pressure O2 [facility] ([facility]) ABG total CO2 22.6 mEq/L 22.0-29.0 ABG Total CO2 [facility] ( [facility]) ABG HCO3 21.5 mEq/L 22.0-26.0 Below low normal Abg Hco3 [facility] ( [facility]) ABG base excess -2.0-2.0 Below low normal ABG Base Exces s [facility] ([facility]) ABG standard HCO3 21.8 mEq/L 22.0-26.0 Below low normal ABG Standard HCO3 [facility] ([facility]) ABG O2 saturation 99.0 % 95.0-99.0 ABG O2 Saturation [facility] ([facility]) ID Date Data Source [id number] 05/17/2020 03:28:00 AM EST [facility]) Name Value Range Interpretation Code Description Data Demetrice rce(s) Supporting Document(s) ABG pH (arterial) 7.375 units 7.350-7.450 ABG pH (Arterial ) [facility] ([facility]) ABG partial pressure CO2 37.6 mmHg 35.0-45.0 ABG Partial Pressure CO2 [facility] ([facility]) ABG partial pressure O2 142.3 mmHg 75.0-100.0 Above high normal ABG Partial Pressure O2 [facility] ([facility]) ABG HCO3 21.5 mEq/L 22.0-26.0 Below low normal Abg Hco3 [facility] ( [facility]) ABG total CO2 22.6 mEq/L 22.0-29.0 ABG Total CO2 [facility] ( [facility]) ABG base excess -2.0-2.0 Below low normal ABG Base Exces s [facility]HNA[facility] ([facility]) ABG O2 saturation 99.0 % 95.0-99.0 ABG O2 Saturation [facility] ([facility]) ABG standard HCO3 21.8 mEq/L 22.0-26.0 Below low normal ABG Standard HCO3 [facility] Center) ID Date Data Source [id number] 05/17/2020 03:28:00 AM EST [facility] ([facility]) Name Value Range Interpretation Code Description Data Demetrice rce(s) Supporting Document(s) ABG pH (arterial) 7.375 units 7.350-7.450 ABG pH (Arterial ) [facility] ([facility]) ABG total CO2 22.6 mEq/L 22.0-29.0 ABG Total CO2 [facility] ( [facility]) ABG partial pressure CO2 37.6 mmHg 35.0-45.0 ABG Partial Pressure CO2 [facility] ([facility]) ABG partial pressure O2 142.3 mmHg 75.0-100.0 Above high normal ABG Partial Pressure O2 [facility] ([facility]) ABG base excess -2.0-2.0 Below low normal ABG Base Exces s [facility] ([facility]) ABG standard HCO3 21.8 mEq/L 22.0-26.0 Below low normal ABG Standard HCO3 [facility] ([facility]) ABG HCO3 21.5 mEq/L 22.0-26.0 Below low normal Abg Hco3 [facility] ( [facility]) ABG O2 saturation 99.0 % 95.0-99.0 ABG O2 Saturation [facility] ([facility]) ID Date Data Source [id number] 05/17/2020 03:28:00 AM EST [facility] ([facility]) Name Value Range Interpretation Code Description Data Demetrice rce(s) Supporting Document(s) ABG pH (arterial) 7.375 units 7.350-7.450 ABG pH (Arterial ) [facility] ([facility]) ABG total CO2 22.6 mEq/L 22.0-29.0 ABG Total CO2 [facility] ( [facility]) ABG partial pressure CO2 37.6 mmHg 35.0-45.0 ABG Partial Pressure CO2 [facility] ([facility]) ABG partial pressure O2 142.3 mmHg 75.0-100.0 Above high normal ABG Partial Pressure O2 [facility] ([facility]) ABG base excess -2.0-2.0 Below low normal ABG Base Exces s [facility] ([facility]) ABG HCO3 21.5 mEq/L 22.0-26.0 Below low normal Abg Hco3 [facility] ( [facility]) ABG O2 saturation 99.0 % 95.0-99.0 ABG O2 Saturation [facility] ([facility]) ABG standard HCO3 21.8 mEq/L 22.0-26.0 Below low normal ABG Standard HCO3 [facility] ([facility]) ID Date Data Source [id number] 05/17/2020 03:28:00 AM EST [facility] ([facility]) Name Value Range Interpretation Code Description Data Demetrice rce(s) Supporting Document(s) ABG pH (arterial) 7.375 units 7.350-7.450 ABG pH (Arterial ) [facility] ([facility]) ABG partial pressure CO2 37.6 mmHg 35.0-45.0 ABG Partial Pressure CO2 [facility] ([facility]) ABG partial pressure O2 142.3 mmHg 75.0-100.0 Above high normal ABG Partial Pressure O2 [facility] ([facility]) ABG total CO2 22.6 mEq/L 22.0-29.0 ABG Total CO2 [facility] ( [facility]) ABG standard HCO3 21.8 mEq/L 22.0-26.0 Below low normal ABG Standard HCO3 [facility] ([facility]) ABG HCO3 21.5 mEq/L 22.0-26.0 Below low normal Abg Hco3 [facility] ( [facility]) ABG base excess -2.0-2.0 Below low normal ABG Base Exces s [facility] ([facility]) ABG O2 saturation 99.0 % 95.0-99.0 ABG O2 Saturation [facility] ([facility]) ID Date Data Source [id number] 05/17/2020 03:28:00 AM EST [facility] ([facility]) Name Value Range Interpretation Code Description Data Demetrice rce(s) Supporting Document(s) ABG pH (arterial) 7.375 units 7.350-7.450 ABG pH (Arterial ) [facility] ([facility]) ABG partial pressure CO2 37.6 mmHg 35.0-45.0 ABG Partial Pressure CO2 [facility] ([facility]) ABG total CO2 22.6 mEq/L 22.0-29.0 ABG Total CO2 [facility] ( [facility]) ABG partial pressure O2 142.3 mmHg 75.0-100.0 Above high normal ABG Partial Pressure O2 [facility] ([facility]) ABG HCO3 21.5 mEq/L 22.0-26.0 Below low normal Abg Hco3 [facility] ( [facility]) ABG base excess -2.0-2.0 Below low normal ABG Base Exces s [facility] ([facility]) ABG O2 saturation 99.0 % 95.0-99.0 ABG O2 Saturation [facility] ([facility]) ABG standard HCO3 21.8 mEq/L 22.0-26.0 Below low normal ABG Standard HCO3 [facility] ([facility]) ID Date Data Source [id number] 05/17/2020 03:28:00 AM EST [facility] ([facility]) Name Value Range Interpretation Code Description Data Demetrice rce(s) Supporting Document(s) ABG partial pressure CO2 37.6 mmHg 35.0-45.0 ABG Partial Pressure CO2 [facility] ([facility]) ABG pH (arterial) 7.375 units 7.350-7.450 ABG pH (Arterial ) [facility] ([facility]) ABG total CO2 22.6 mEq/L 22.0-29.0 ABG Total CO2 [facility] ( [facility]) ABG partial pressure O2 142.3 mmHg 75.0-100.0 Above high normal ABG Partial Pressure O2 [facility] ([facility]) ABG HCO3 21.5 mEq/L 22.0-26.0 Below low normal Abg Hco3 [facility] ( [facility]) ABG O2 saturation 99.0 % 95.0-99.0 ABG O2 Saturation [facility] ([facility]) ABG base excess -2.0-2.0 Below low normal ABG Base Exces s [facility] ([facility]) ABG standard HCO3 21.8 mEq/L 22.0-26.0 Below low normal ABG Standard HCO3 [facility] ([facility]) ID Date Data Source [id number] 05/07/2020 10:59:52 AM [facility] XR SPINE LUMBAR 4-MORE VIEWS [id number] RESULTInterpreted by:Corey Jack MDINDICATION:DDD/ Stenosis.TECHNIQUE: Multiple views [...] rce(s) Supporting Document(s) ID Date Data Source [id number] 05/07/2020 10:59:52 AM [facility] XR SPINE-ENTIRE THORACIC AND LUMBAR- 2 O R 3 VIEW [id number] RESULTInterpreted by:Corey Jack MDINDICATION:DDD/ Stenosis.TECHNIQUE: Multiple views [...] rce(s) Supporting Document(s) ID Date Data Source [id number] 05/07/2020 10:52:31 AM EST [facility] XR PELVIS 1-2 VIEWS [id number] RESULTInt erpreted by:Corey Jack MDINDICATION: DDD/stenosis.TECHNIQUE: Single frontal view the pelvis were obtained.COMPARISON: None.FINDINGS: No acute fracture or dislocation. Bony alignment appears anatomic. The periarticular soft tissues appear unremarkable.IMPRESSION:No acute bony pathology.This document has been electronically signed by Corey Jack MD on 05/07/2020 10:50 AM Name Value Range Interpretation Code Description Data Demetrice rce(s) Supporting Document(s) ID Date Data Source [id number] 04/21/2020 11:38:00 AM EDT [facility] [address] [place] [address] PHONE: [phone] FAX: [phone] Name .................. : DEMOND Wren Acct Number.................. : [id number] ROOM. ................. : TR-02 MR Number ................... : [id number] Stay type ............. : E/R Discharge Date......... ... : 04/20/20 Admit Date ......... : 04/19/20 Admit Phys .................... : GIOVANNI HOFF Date of ....... : 1990 Family Phys ................... : CHRISTI Phone .................. : [phone] Age ................................ : 30 Film# .................. .:[id number] Sex ................................. : F Unsigned transcriptions are preliminary reports and do not represent a medical or legal document SPINE LS AP & LAT [id number] COMPLETE:04/20/20 00:38 DLA 42387 Reason(s): Trauma/Injury LUMBAR SPINE SERIES: 2-VIEWS HISTORY: [...] rce(s) Supporting Document(s) ID Date Data Source [id number] 04/21/2020 11:37:00 [place] [address] PHONE: [phone] FAX: [phone] Name .................. : DEMOND Wren Acct Number.................. : [id number] ROOM. ................. : TR-02 MR Number ................... : [id number] Stay type ............. : E/R Discharge Date......... ... : 04/20/20 Admit Date ......... : 04/19/20 Admit Phys .................... : GIOVANNI HOFF Date of ....... : 1990 Family Phys ................... : CHRISTI Phone .................. : [phone] Age ................................ : 30 Film# .................. .:[id number] Sex ................................. : F Unsigned transcriptions are preliminary reports and do not represent a medical or legal document [employer] COCCYX [id number] COMPLETE:04/20/20 00:38 DLA 21057 Reason(s): Trauma/Injury SACRUM AND COCCYX SERIES: INDICATION: [...] rce(s) Supporting Document(s) ID Date Data Source [id number] 04/19/2020 11:16:00 PM EDT [facility] 1 OrderSheet [facility] Emergency Department [address] [place] [address] Phone #: ext- [phone] 04/19/2020 23:16 [id number] Sex: F : 1990 Age: 30yWEIGHT:101.6 kg [...] Eron Davila M.D. (01:04 04/20/2020)] 2 OrderSheet [facility] Emergency Department [address] [place] [address] Phone #: [phone] wnx- [id number] 04/19/2020 23:16 Patient: RAVI LAGOS Sex: F : 1990 Age: 30y[Electronically locked by Mady Waters R.N. (00:58 04/20/2020)] Name Value Range Interpretation Code Description Data Demetrice rce(s) Supporting Document(s) ID Date Data Source [id number] 04/19/2020 11:16:00 PM EDT [facility] 1 Medication Reconciliation Report [facility] Emergency Department [address] [place] [address] Phone #: ext- [phone] 04/19/2020 23:16 Patient: [...] days -- Dispense 28tablet. Refills: 0. Substitution permitted.[facility] #46 - [email or web address] ; [place] [address]. .Lidoderm 5 % topical patch Apply 1 patch once a day for 7 days -- Take off after 12 hrs. Dispense 7patch. Refills: 0. Substitution permitted.[facility] #73 - [email or web address] ; [place], [place] [id number]. .cyclobenzaprine 5 mg tablet Take 1 tablet three times a day for 5 days -- Dispense 15 tablet. Refills: 0.Substitution permitted.[facility] #16 - [email or web address] ; [place] [address]. Phone: . -- Eron Davila M.D. 2 Medication Reconciliation Report [facility] Emergency Department [address] [place] [address] Phone #: ext- [phone] 04/19/2020 23:16 Patient: RAVI LAGOS Sex: F : 1990 Age: 30y Name Value Range Interpretation Code Description Data Demetrice rce(s) Supporting Document(s) ID Date Data Source [id number] 04/19/2020 11:16:00 PM EDT [facility] 1 Medication Administration Record [facility] Emergency Department [address] [place] [address] Phone #: ext- [phone] 04/19/2020 23:16 Patient: [...] rce(s) Supporting Document(s) ID Date Data Source [id number] 04/19/2020 11:16:00 PM EDT [facility] 1 General Instructions [facility] Emergency Department [address] [place] [address] Phone #: ext- [phone] 04/19/2020 23:16 Patient: [...] days -- Dispense 28tablet. Refills: 0. Substitution permitted.[facility] #19 - [email or web address] ; [place] [address]. .Lidoderm 5 % topical patch Apply 1 patch once a day for 7 days -- Take off after 12 hrs. Dispense 7patch. Refills: 0. Substitution permitted.[facility] #33 - [email or web address] ; [place] [address]. .cyclobenzaprine 5 mg tablet Take 1 tablet three times a day for 5 days -- Dispense 15 tablet. Refills: 0.Substitution permitted.[facility] #92 - [email or web address] ; [place], [place] [id number]. Phone: .Follow-up:Return to the emergency department as needed. Follow up with your healthcare provider in five dayseven if well. Call for an appointment. Reason for referral: evaluation and treatment. Summary of careprovided to patient via paper. 2 General Instructions [facility] Emergency Department [address] [place] [address] Phone #: ext- [phone] 04/19/2020 23:16 Patient: RAVI LAGOS Sex: F [...] aching, cramping or burning. 3 General Instructions [facility] Emergency Department [address] [place] [address] Phone #: ext- [phone] 04/19/2020 23:16 Patient: [...] may make it worse. 4 General Instructions [facility] Emergency Department [address] [place] [address] Phone #: ext- [phone] 04/19/2020 23:16 Patient: [...] or are takingother medicines. You may use lbqf-biz-czdaejc medicine as directed on the bottle to [...] any new findingsthat may affect your care.Call [phone] if any of the following occur: Trouble breathing 5 General Instructions [facility] Emergency Department [address] [place] [address] Phone #: ext- [phone] 04/19/2020 23:16 Patient: RAVI LAGOS Sex: F [...] Numbness in the groin or genital area [id number] [employer]. [address] [place] [address]. All rights reserved. This information is not intended as asubstitute for professional medical care. Always follow your healthcare professional's instructions.Back Pain (Acute or Chronic) 6 General Instructions [facility] Emergency Department [address] [place] [address] Phone #: ext- [phone] 04/19/2020 23:16 Patient: [...] illness. Mechanical problems include: 7 General Instructions [facility] Emergency Department [address] [place] [address] Phone #: ext- [phone] 04/19/2020 23:16 [id number] Sex: F : 1990 Age: 30y Physical [...] painful area for 20 8 General Instructions [facility] Emergency Department [address] [place] [address] Phone #: ext- [phone] 04/19/2020 23:16 Patient: [...] or are takingother medicines. You may use conr-kwt-kjxoyzt medicine as directed on the bottle to [...] any new findingsthat may affect your care.Call [phone] if any of the following occur: Trouble breathing Confusion Very drowsy or trouble awakening Fainting or loss of consciousness Rapid or very slow heart rate Loss of bowel or bladder control 9 General Instructions [facility] Emergency Department [address] [place] [address] Phone #: ext- [phone] 04/19/2020 23:16 Patient: RAVI LAGOS Sex: F : 1990 Age: 30yWhen to seek medical adviceCall your healthcare provider right away if any of these occur: Pain becomes worse or spreads to your legs Weakness or numbness in one or both legs Numbness in the groin or genital area 5611-9807 [employer]. [address] [place] [address]. All rights reserved. This information is not [...] rce(s) Supporting Document(s) ID Date Data Source [id number] 04/19/2020 11:16:00 PM EDT [facility] 1 Clinical Report - Nurses [facility] Emergency Department [address] [place] [address] Phone #: ext [phone] 04/19/2020 23:16 Patient: RAVI LAGOS Sex: F : 1990 Age: 30yTRIAGEArrived by private vehicle. Historian: patient. 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 States that she is unable to stand up straight.). History of recent trauma- fall (slipped and fellyesterday from a standing position landed on her back on her yard on some tree roots.).Treatment [employer]SE:("Nothing. Nothing works so I haven't taking Nothin"). [...] West R.N.History 2 Clinical Report - Nurses [facility] Emergency Department [address] [place] [address] Phone #: ext- [phone] 04/19/2020 23:16 Patient: [...] Patient transported to radiology by wheelchair with radiology orderly. --00:09 04/20/20 Mady West R.N. 3 Clinical Report - Nurses [facility] Emergency Department [address] [place] [address] Phone #: ext- [phone] 04/19/2020 23:16 Patient: RAVI LAGOS Sex: F : 1990 Age: 30y Patient returned from radiology by wheelchair with radiology orderly. --00:21 04/20/20 Mady West R.N. 00:22 04/20/2020 Lidocaine Patch Transdermal 1 patch applied. Allergies verified and confirmed 5 rights. Information reviewed with patient including reason for taking this medication. Verbalizes understanding. (To lower back). --00:22 04/20/20 Mady West R.N. Patient transported to radiology with radiology orderly. (for additional imaging). --00:24 04/20/20 Mady West R.N.DISPOSITION / DISCHARGE Departure time: 00:57 04/20/2020. Condition at departure: improved and stable. No learning barriers present. Reviewed medication(s). Prescription(s) sent electronically to pharmacy. Patient and spouse verbalized understanding. Written instructions provided in [place]orese. The patient was discharged by the physician. 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 2 Clinical Report - Physicians/Mid Levels [facility] Department [address] [place] [address] Phone #: [phone] djv- [id number] 04/19/2020 23:16 Patient: RAVI LAGOS Sex: F [...] 04/20/2020. 3 Clinical Report - Physicians/Mid Levels [facility] Department [address] [place] [address] Phone #: ext- [phone] 04/19/2020 23:16 Patient: RAVI LAGOS Sex: F [...] tablet. Refills: 0. Substitution permitted. Pharmacy - [facility] #08 - [id number] [facility] [address] ; [place], [place] [id number]. . Lidoderm 5 % topical patch Apply 1 patch once a day for 7 days -- Take off after 12 hrs. Dispense 7 patch. Refills: 0. Substitution permitted. 4 Clinical Report - Physicians/Mid Levels [facility] Department [address] [place] [address] Phone #: ext- [phone] 04/19/2020 23:16 [id number] Sex: F : 1990 Age: 30y [facility] #74 - [id number] ; [place], [place] [id number]. . cyclobenzaprine 5 mg tablet Take 1 tablet three times a day for 5 days -- Dispense 15 tablet. Refill s: 0. Substitution permitted. [facility] #13 - [id number] ; [place], [place] [id number]. . Follow-up: Return to the emergency department [...] rce(s) Supporting Document(s) ID Date Data Source [id number] 04/09/2020 08:46:06 AM EDT [facility] Measurements & CalculationsHeight: 70 inches (5 ft. [...] April 09, 2020 8:54 AMPatient History Medical History:[place] Teeth RemovalSurgical History:ScoliosisDegenerative disk diseasebulging disksfallopian tube [...] it. Moved and lost track of it[facility]. Has not otherwise been treatting the cough with the exception of occasional Albuterol inhaler. Continuing to have issues with anxiety and depression. No worse and no better with time. Still able to function fairly well with this.HPI performed by: Ministerio Fagan MD, April 09, 2020 9:06 AMTrans[facility] InboundProvider Calculated and Reviewed all Clinical Protocols [...] ElectronicOrders:Adult - Ofc Vst, EST, Level III [CPT-73680] Review of Systems General: Denies dizziness, fatigue. [...] Diastolic blood pressure 76 mm[Hg] 76 mm[Hg] [facility] ([facility]) Body height 70 [in_i] 70 [in_i] [facility] ([facility]) Body mass index (BMI) [Ratio] 27 kg/m2 27 kg/ m2 [facility] ([facility]) Systolic blood pressure 125 mm[Hg] 125 mm[Hg] A THE[facility] ([facility]) Body weight 3008 [oz_av] 3008 [oz_av] [facility] ([facility]) Diastolic blood pressure 61 mm[Hg] 61 mm[Hg] [facility] ([facility]) Body height 70 [in_i] 70 [in_i] [facility] ([facility]) Body mass index (BMI) [Ratio] 27.2 kg/m2 27.2 k g/m2 [facility] ([facility]) Systolic blood pressure 96 mm[Hg] 96 mm[Hg] A [facility] ([facility]) Body weight 3030 [oz_av] 3030 [oz_av] [facility] ([facility]) Diastolic blood pressure 61 mm[Hg] 61 mm[Hg] [facility] ([facility]) Body height 70 [in_i] 70 [in_i] [facility] ([facility]) Body mass index (BMI) [Ratio] 27.2 kg/m2 27.2 k g/m2 [facility] ([facility]) Systolic blood pressure 96 mm[Hg] 96 mm[Hg] A [facility] ([facility]) Body weight 3030 [oz_av] 3030 [oz_av] [facility] ([facility]) Body height 70 [in_i] 70 [in_i] [facility] ([facility]) Body height 70 [in_i] 70 [in_i] [facility] ([facility]) Body height 70 [in_i] 70 [in_i] [facility] ([facility]) Body height 70 [in_i] 70 [in_i] [facility] ([facility]) Body height 70 [in_i] 70 [in_i] [facility] ([facility]) Diastolic blood pressure 52 mm[Hg] 52 mm[Hg] [facility] ([facility]) Body weight 3060 [oz_av] 3060 [oz_av] [facility] ([facility]) Body mass index (BMI) [Ratio] 27.4 kg/m2 27.4 k g/m2 [facility] ([facility]) Systolic blood pressure 119 mm[Hg] 119 mm[Hg] A THE[facility] ([facility]) Systolic blood pressure 119 mm[Hg] 119 mm[Hg] A [facility] ([facility]) Body mass index (BMI) [Ratio] 27.4 kg/m2 27.4 k g/m2 [facility] ([facility]) Body weight 3060 [oz_av] 3060 [oz_av] [facility] ([facility]) Diastolic blood pressure 52 mm[Hg] 52 mm[Hg] [facility] ([facility]) Body height 70 [in_i] 70 [in_i] [facility] ([facility]) Diastolic blood pressure 52 mm[Hg] 52 mm[Hg] [facility] ([facility]) Body height 70 [in_i] 70 [in_i] [facility] ([facility]) Body mass index (BMI) [Ratio] 27.4 kg/m2 27.4 k g/m2 [facility] ([facility]) Systolic blood pressure 119 mm[Hg] 119 mm[Hg] A [facility] ([facility]) Body weight 3060 [oz_av] 3060 [oz_av] [facility] ([facility]) Body weight 3060 [oz_av] 3060 [oz_av] [facility] ([facility]) Systolic blood pressure 119 mm[Hg] 119 mm[Hg] [facility] Diastolic blood pressure 52 mm[Hg] 52 mm[Hg] [facility] ([facility]) Body height 70 [in_i] 70 [in_i] [facility] ([facility]) Body mass index (BMI) [Ratio] 27.4 kg/m2 27.4 k g/m2 [facility] ([facility]) Diastolic blood pressure 52 mm[Hg] 52 mm[Hg] [facility] ([facility]) Body height 70 [in_i] 70 [in_i] [facility] ([facility]) Body mass index (BMI) [Ratio] 27.4 kg/m2 27.4 k g/m2 [facility] ([facility]) Systolic blood pressure 119 mm[Hg] 119 mm[Hg] A [facility] ([facility]) Body weight 3060 [oz_av] 3060 [oz_av] [facility] ([facility]) Diastolic blood pressure 61 mm[Hg] 61 mm[Hg] [facility] ([facility]) Body height 70 [in_i] 70 [in_i] [facility] ([facility]) Body mass index (BMI) [Ratio] 27.7 kg/m2 27.7 k g/m2 [facility] ([facility]) Systolic blood pressure 96 mm[Hg] 96 mm[Hg] A [facility] ([facility]) Body weight 3094 [oz_av] 3094 [oz_av] [facility] ([facility]) Body mass index (BMI) [Ratio] 27.7 kg/m2 27.7 k g/m2 [facility] ([facility]) Diastolic blood pressure 61 mm[Hg] 61 mm[Hg] [facility] ([facility]) Systolic blood pressure 96 mm[Hg] 96 mm[Hg] A [facility] ([facility]) Body height 70 [in_i] 70 [in_i] [facility] ([facility]) Body weight 3094 [oz_av] 3094 [oz_av] [facility] ([facility]) Systolic blood pressure 96 mm[Hg] 96 mm[Hg] A [facility] ([facility]) Diastolic blood pressure 61 mm[Hg] 61 mm[Hg] [facility] ([facility]) Body height 70 [in_i] 70 [in_i] [facility] ([facility]) Body mass index (BMI) [Ratio] 27.7 kg/m2 27.7 k g/m2 [facility] ([facility]) Body weight 3094 [oz_av] 3094 [oz_av] [facility] ([facility]) Body height 70 [in_i] 70 [in_i] [facility] ([facility]) Body mass index (BMI) [Ratio] 27.7 kg/m2 27.7 k g/m2 [facility] ([facility]) Systolic blood pressure 96 mm[Hg] 96 mm[Hg] A [facility] ([facility]) Body weight 3094 [oz_av] 3094 [oz_av] [facility] ([facility]) Diastolic blood pressure 61 mm[Hg] 61 mm[Hg] [facility] ([facility]) Diastolic blood pressure 61 mm[Hg] 61 mm[Hg] [facility] ([facility]) Body height 70 [in_i] 70 [in_i] [facility] ([facility]) Body mass index (BMI) [Ratio] 27.7 kg/m2 27.7 k g/m2 [facility] ([facility]) Systolic blood pressure 96 mm[Hg] 96 mm[Hg] [facility] Body weight 3094 [oz_av] 3094 [oz_av] [facility] ([facility]) Diastolic blood pressure 61 mm[Hg] 61 mm[Hg] MAHNAZ ([facility]) Body height 70 [in_i] 70 [in_i] MAHNAZ ([facility]) Body mass index (BMI) [Ratio] 27.7 kg/m2 27.7 k g/m2 MAHNAZ ([facility]) Systolic blood pressure 96 mm[Hg] 96 mm[Hg] [facility] Body weight 3094 [oz_av] 3094 [oz_av] MAHNAZ ([facility]) Diastolic blood pressure 74 mm[Hg] 74 mm[Hg] MAHNAZ ([facility]) Body height 70 [in_i] 70 [in_i] MAHNAZ ([facility]) Body mass index (BMI) [Ratio] 28 kg/m2 28 kg/ m2 MA[facility]NAZ ([facility]) Systolic blood pressure 119 mm[Hg] 119 mm[Hg] A THENA ([facility]) Body weight 3124 [oz_av] 3124 [oz_av] MAHNAZ ([facility]) Body height 70 [in_i] 70 [in_i] MAHNAZ ([facility]) Body mass index (BMI) [Ratio] 28 kg/m2 28 kg/ m2 MA[facility]Z ([facility]) Systolic blood pressure 119 mm[Hg] 119 mm[Hg] [facility] Body weight 3124 [oz_av] 3124 [oz_av] MAHNAZ ([facility]) Diastolic blood pressure 74 mm[Hg] 74 mm[Hg] MAHNAZ ([facility]) Body mass index (BMI) [Ratio] 28 kg/m2 28 kg/ m2 MA[facility] ([facility]) Diastolic blood pressure 74 mm[Hg] 74 mm[Hg] MAHNAZ ([facility]) Body height 70 [in_i] 70 [in_i] MAHNAZ ([facility]) Systolic blood pressure 119 mm[Hg] 119 mm[Hg] A THENA ([facility]) Body weight 3124 [oz_av] 3124 [oz_av] MAHNAZ ([facility]) Diastolic blood pressure 74 mm[Hg] 74 mm[Hg] MA[facility]Z ([facility]) Body height 70 [in_i] 70 [in_i] MAHNAZ ([facility]) Body mass index (BMI) [Ratio] 28 kg/m2 28 kg/ m2 [facility] ([facility]) Systolic blood pressure 119 mm[Hg] 119 mm[Hg] A THENA ([facility]) Body weight 3124 [oz_av] 3124 [oz_av] MAHNAZ ([facility]) Diastolic blood pressure 74 mm[Hg] 74 mm[Hg] MA[facility]Z ([facility]) Body height 70 [in_i] 70 [in_i] MAHNAZ ([facility]) Body mass index (BMI) [Ratio] 28 kg/m2 28 kg/ m2 [facility] ([facility]) Systolic blood pressure 119 mm[Hg] 119 mm[Hg] A THENA ([facility]) Body weight 3124 [oz_av] 3124 [oz_av] MAHNAZ ([facility]) Diastolic blood pressure 74 mm[Hg] 74 mm[Hg] MA[facility]Z ([facility]) Body height 70 [in_i] 70 [in_i] [facility]Z ([facility]) Body mass index (BMI) [Ratio] 28 kg/m2 28 kg/ m2 [facility] ([facility]) Systolic blood pressure 119 mm[Hg] 119 mm[Hg] A THENA ([facility]) Body weight 3124 [oz_av] 3124 [oz_av] [facility] ([facility]) Body weight 3124 [oz_av] 3124 [oz_av] [facility]Z ([facility]) Systolic blood pressure 119 mm[Hg] 119 mm[Hg] [facility]) Diastolic blood pressure 74 mm[Hg] 74 mm[Hg] [facility]Z ([facility]) Body height 70 [in_i] 70 [in_i] [facility]Z ([facility]) Body mass index (BMI) [Ratio] 28 kg/m2 28 kg/ m2 [facility] ([facility]) Diastolic blood pressure 66 mm[Hg] 66 mm[Hg] [facility] ([facility]) Body height 70 [in_i] 70 [in_i] [facility] ([facility]) Body mass index (BMI) [Ratio] 28.7 kg/m2 28.7 k g/m2 [facility] ([facility]) Systolic blood pressure 102 mm[Hg] 102 mm[Hg] [facility]) Body weight 3204 [oz_av] 3204 [oz_av] [facility]Z ([facility]) Diastolic blood pressure 66 mm[Hg] 66 mm[Hg] MAHNZA ([facility]) Body height 70 [in_i] 70 [in_i] [facility]NAZ ([facility]) Body mass index (BMI) [Ratio] 28.7 kg/m2 28.7 k g/m2 [facility] ([facility]) Systolic blood pressure 102 mm[Hg] 102 mm[Hg] [facility]) Body weight 3204 [oz_av] 3204 [oz_av] MAHNAZ ([facility]) Diastolic blood pressure 66 mm[Hg] 66 mm[Hg] [facility] ([facility]) Body height 70 [in_i] 70 [in_i] [facility]Z ([facility]) Body mass index (BMI) [Ratio] 28.7 kg/m2 28.7 k g/m2 [facility] ([facility]) Systolic blood pressure 102 mm[Hg] 102 mm[Hg] [facility]) Body weight 3204 [oz_av] 3204 [oz_av] [facility]Z ([facility]) Diastolic blood pressure 66 mm[Hg] 66 mm[Hg] MAHNAZ ([facility]) Body height 70 [in_i] 70 [in_i] [facility]Z ([facility]) Body mass index (BMI) [Ratio] 28.7 kg/m2 28.7 k g/m2 [facility] ([facility]) Systolic blood pressure 102 mm[Hg] 102 mm[Hg] [facility]) Body weight 3204 [oz_av] 3204 [oz_av] MAHNAZ ([facility]) Diastolic blood pressure 66 mm[Hg] 66 mm[Hg] MA[facility]NAZ ([facility]) Body height 70 [in_i] 70 [in_i] [facility]Z ([facility]) Body mass index (BMI) [Ratio] 28.7 kg/m2 28.7 k g/m2 MA[facility] ([facility]) Systolic blood pressure 102 mm[Hg] 102 mm[Hg] [facility]) Body weight 3204 [oz_av] 3204 [oz_av] [facility]Z ([facility]) Diastolic blood pressure 66 mm[Hg] 66 mm[Hg] [facility]NAZ ([facility]) Body height 70 [in_i] 70 [in_i] [facility]Z ([facility]) Body mass index (BMI) [Ratio] 28.7 kg/m2 28.7 k g/m2 [facility]Z ([facility]) Systolic blood pressure 102 mm[Hg] 102 mm[Hg] [facility]) Body weight 3204 [oz_av] 3204 [oz_av] [facility]Z ([facility]) Body height 70 [in_i] 70 [in_i] [facility]Z ([facility]) Body mass index (BMI) [Ratio] 28.7 kg/m2 28.7 k g/m2 MA[facility]Z ([facility]) Systolic blood pressure 102 mm[Hg] 102 mm[Hg] A THENA ([facility]) Body weight 3204 [oz_av] 3204 [oz_av] MAHNAZ ([facility]) Diastolic blood pressure 66 mm[Hg] 66 mm[Hg] [facility]Z ([facility]) Diastolic blood pressure 66 mm[Hg] 66 mm[Hg] [facility] ([facility]) Body height 70 [in_i] 70 [in_i] [facility]Z ([facility]) Body mass index (BMI) [Ratio] 28.7 kg/m2 28.7 k g/m2 [facility]Z ([facility]) Systolic blood pressure 102 mm[Hg] 102 mm[Hg] [facility]) Body weight 3204 [oz_av] 3204 [oz_av] [facility]HNAZ ([facility]) Diastolic blood pressure 70 mm[Hg] 70 mm[Hg] [facility]NAZ ([facility]) Body height 70 [in_i] 70 [in_i] [facility]Z ([facility]) Body mass index (BMI) [Ratio] 29.9 kg/m2 29.9 k g/m2 [facility] ([facility]) Systolic blood pressure 111 mm[Hg] 111 mm[Hg] [facility]) Body weight 3336 [oz_av] 3336 [oz_av] [facility]Z ([facility]) Body height 70 [in_i] 70 [in_i] MAHNAZ ([facility]) Body mass index (BMI) [Ratio] 29.9 kg/m2 29.9 k g/m2 [facility]Z ([facility]) Body weight 3336 [oz_av] 3336 [oz_av] [facility]Z ([facility]) Systolic blood pressure 111 mm[Hg] 111 mm[Hg] [facility]) Diastolic blood pressure 70 mm[Hg] 70 mm[Hg] MAHNAZ ([facility]) Diastolic blood pressure 70 mm[Hg] 70 mm[Hg] [facility]Z ([facility]) Body height 70 [in_i] 70 [in_i] [facility]Z ([facility]) Body mass index (BMI) [Ratio] 29.9 kg/m2 29.9 k g/m2 [facility] ([facility]) Systolic blood pressure 111 mm[Hg] 111 mm[Hg] [facility]) Body weight 3336 [oz_av] 3336 [oz_av] [facility]Z ([facility]) Diastolic blood pressure 70 mm[Hg] 70 mm[Hg] MAHNAZ ([facility]) Body height 70 [in_i] 70 [in_i] [facility] ([facility]) Body mass index (BMI) [Ratio] 29.9 kg/m2 29.9 k g/m2 [facility] ([facility]) Systolic blood pressure 111 mm[Hg] 111 mm[Hg] A [facility] ([facility]) Body weight 3336 [oz_av] 3336 [oz_av] MAHNAZ ([facility]) Systolic blood pressure 111 mm[Hg] 111 mm[Hg] [facility]) Body weight 3336 [oz_av] 3336 [oz_av] MAHNAZ ([facility]) Diastolic blood pressure 70 mm[Hg] 70 mm[Hg] [facility]Z ([facility]) Body height 70 [in_i] 70 [in_i] [facility]Z ([facility]) Body mass index (BMI) [Ratio] 29.9 kg/m2 29.9 k g/m2 [facility]Z ([facility]) Diastolic blood pressure 70 mm[Hg] 70 mm[Hg] MA[facility]NAZ ([facility]) Body height 70 [in_i] 70 [in_i] [facility]Z ([facility]) Body mass index (BMI) [Ratio] 29.9 kg/m2 29.9 k g/m2 [facility] ([facility]) Systolic blood pressure 111 mm[Hg] 111 mm[Hg] A [facility] ([facility]) Body weight 3336 [oz_av] 3336 [oz_av] [facility]HNAZ ([facility]) Diastolic blood pressure 70 mm[Hg] 70 mm[Hg] [facility]Z ([facility]) Body height 70 [in_i] 70 [in_i] [facility]Z ([facility]) Body mass index (BMI) [Ratio] 29.9 kg/m2 29.9 k g/m2 [facility]Z ([facility]) Systolic blood pressure 111 mm[Hg] 111 mm[Hg] A [facility] ([facility]) Body weight 3336 [oz_av] 3336 [oz_av] [facility]Z ([facility]) Diastolic blood pressure 70 mm[Hg] 70 mm[Hg] [facility]Z ([facility]) Body height 70 [in_i] 70 [in_i] [facility]Z ([facility]) Body mass index (BMI) [Ratio] 29.9 kg/m2 29.9 k g/m2 [facility] ([facility]) Systolic blood pressure 111 mm[Hg] 111 mm[Hg] A THENA ([facility]) Body weight 3336 [oz_av] 3336 [oz_av] [facility]Z ([facility]) Diastolic blood pressure 64 mm[Hg] 64 mm[Hg] [facility]Z ([facility]) Body height 70 [in_i] 70 [in_i] [facility]Z ([facility]) Body mass index (BMI) [Ratio] 31 kg/m2 31 kg/ m2 [facility] ([facility]) Systolic blood pressure 102 mm[Hg] 102 mm[Hg] A [facility] ([facility]) Body weight 3456 [oz_av] 3456 [oz_av] [facility]Z ([facility]) Diastolic blood pressure 64 mm[Hg] 64 mm[Hg] MA[facility]NAZ ([facility]) Body height 70 [in_i] 70 [in_i] [facility]Z ([facility]) Body mass index (BMI) [Ratio] 31 kg/m2 31 kg/ m2 [facility] ([facility]) Systolic blood pressure 102 mm[Hg] 102 mm[Hg] A THENA ([facility]) Body weight 3456 [oz_av] 3456 [oz_av] [facility]Z ([facility]) Body mass index (BMI) [Ratio] 31 kg/m2 31 kg/ m2 [facility] ([facility]) Diastolic blood pressure 64 mm[Hg] 64 mm[Hg] [facility] ([facility]) Body height 70 [in_i] 70 [in_i] [facility] ([facility]) Systolic blood pressure 102 mm[Hg] 102 mm[Hg] A THENA ([facility]) Body weight 3456 [oz_av] 3456 [oz_av] [facility]Z ([facility]) Diastolic blood pressure 64 mm[Hg] 64 mm[Hg] [facility] ([facility]) Body height 70 [in_i] 70 [in_i] [facility]Z ([facility]) Body mass index (BMI) [Ratio] 31 kg/m2 31 kg/ m2 [facility] ([facility]) Systolic blood pressure 102 mm[Hg] 102 mm[Hg] [facility]) Body weight 3456 [oz_av] 3456 [oz_av] [facility]Z ([facility]) Systolic blood pressure 102 mm[Hg] 102 mm[Hg] A THENA ([facility]) Diastolic blood pressure 64 mm[Hg] 64 mm[Hg] [facility]Z ([facility]) Body height 70 [in_i] 70 [in_i] [facility]Z ([facility]) Body mass index (BMI) [Ratio] 31 kg/m2 31 kg/ m2 [facility] ([facility]) Body weight 3456 [oz_av] 3456 [oz_av] [facility]Z ([facility]) Diastolic blood pressure 64 mm[Hg] 64 mm[Hg] [facility]Z ([facility]) Body height 70 [in_i] 70 [in_i] [facility]Z ([facility]) Body mass index (BMI) [Ratio] 31 kg/m2 31 kg/ m2 [facility] ([facility]) Systolic blood pressure 102 mm[Hg] 102 mm[Hg] A THENA ([facility]) Body weight 3456 [oz_av] 3456 [oz_av] [facility]Z ([facility]) Diastolic blood pressure 64 mm[Hg] 64 mm[Hg] [facility] ([facility]) Body height 70 [in_i] 70 [in_i] [facility]Z ([facility]) Body mass index (BMI) [Ratio] 31 kg/m2 31 kg/ m2 [facility] ([facility]) Systolic blood pressure 102 mm[Hg] 102 mm[Hg] A THENA ([facility]) Body weight 3456 [oz_av] 3456 [oz_av] [facility] ([facility]) Body height 70 [in_i] 70 [in_i] [facility] ([facility]) Diastolic blood pressure 64 mm[Hg] 64 mm[Hg] [facility] ([facility]) Body mass index (BMI) [Ratio] 31 kg/m2 31 kg/ m2 [facility] ([facility]) Systolic blood pressure 102 mm[Hg] 102 mm[Hg] [facility]) Body weight 3456 [oz_av] 3456 [oz_av] [facility] ([facility]) Diastolic blood pressure 64 mm[Hg] 64 mm[Hg] [facility]Z ([facility]) Body height 70 [in_i] 70 [in_i] [facility]Z ([facility]) Body mass index (BMI) [Ratio] 31 kg/m2 31 kg/ m2 [facility] ([facility]) Systolic blood pressure 102 mm[Hg] 102 mm[Hg] [facility]) Body weight 3456 [oz_av] 3456 [oz_av] [facility] ([facility]) Diastolic blood pressure 64 mm[Hg] 64 mm[Hg] [facility] ([facility]) Body height 70 [in_i] 70 [in_i] [facility] ([facility]) Body mass index (BMI) [Ratio] 31 kg/m2 31 kg/ m2 [facility] ([facility]) Systolic blood pressure 102 mm[Hg] 102 mm[Hg] [facility]) Body weight 3456 [oz_av] 3456 [oz_av] [facility] ([facility]) Diastolic blood pressure 64 mm[Hg] 64 mm[Hg] [facility]Z ([facility]) Body height 70 [in_i] 70 [in_i] [facility]Z ([facility]) Body mass index (BMI) [Ratio] 31 kg/m2 31 kg/ m2 [facility] ([facility]) Systolic blood pressure 102 mm[Hg] 102 mm[Hg] [facility] Body weight 3456 [oz_av] 3456 [oz_av] [facility] ([facility]) Diastolic blood pressure 67 mm[Hg] 67 mm[Hg] [facility] ([facility]) Body height 70 [in_i] 70 [in_i] [facility] ([facility]) Body mass index (BMI) [Ratio] 31.7 kg/m2 31.7 k g/m2 [facility] ([facility]) Systolic blood pressure 100 mm[Hg] 100 mm[Hg] A THENA ([facility]) Body weight 3529.6 [oz_av] 3529.6 [oz_av] ATHEN A ([facility]) Diastolic blood pressure 67 mm[Hg] 67 mm[Hg] MAHNAZ ([facility]) Body height 70 [in_i] 70 [in_i] [facility] ([facility]) Body mass index (BMI) [Ratio] 31.7 kg/m2 31.7 k g/m2 [facility] ([facility]) Systolic blood pressure 100 mm[Hg] 100 mm[Hg] A THENA ([facility]) Body weight 3529.6 [oz_av] 3529.6 [oz_av] ATHEN A ([facility]) Body height 70 [in_i] 70 [in_i] MAHNAZ ([facility]) Diastolic blood pressure 67 mm[Hg] 67 mm[Hg] [facility] ([facility]) Body mass index (BMI) [Ratio] 31.7 kg/m2 31.7 k g/m2 [facility] ([facility]) Systolic blood pressure 100 mm[Hg] 100 mm[Hg] A THENA ([facility]) Body weight 3529.6 [oz_av] 3529.6 [oz_av] ATHEN A ([facility]) Diastolic blood pressure 67 mm[Hg] 67 mm[Hg] [facility]Z ([facility]) Body height 70 [in_i] 70 [in_i] [facility]Z ([facility]) Body mass index (BMI) [Ratio] 31.7 kg/m2 31.7 k g/m2 [facility] ([facility]) Systolic blood pressure 100 mm[Hg] 100 mm[Hg] A THENA ([facility]) Body weight 3529.6 [oz_av] 3529.6 [oz_av] ATHEN A ([facility]) Body mass index (BMI) [Ratio] 31.7 kg/m2 31.7 k g/m2 [facility]Z ([facility]) Diastolic blood pressure 67 mm[Hg] 67 mm[Hg] [facility]Z ([facility]) Body weight 3529.6 [oz_av] 3529.6 [oz_av] ATHEN A ([facility]) Systolic blood pressure 100 mm[Hg] 100 mm[Hg] A THENA ([facility]) Body height 70 [in_i] 70 [in_i] MAHNAZ ([facility]) Diastolic blood pressure 67 mm[Hg] 67 mm[Hg] [facility] ([facility]) Body height 70 [in_i] 70 [in_i] [facility] ([facility]) Body mass index (BMI) [Ratio] 31.7 kg/m2 31.7 k g/m2 [facility] ([facility]) Systolic blood pressure 100 mm[Hg] 100 mm[Hg] A THENA ([facility]) Body weight 3529.6 [oz_av] 3529.6 [oz_av] ATHEN A ([facility]) Diastolic blood pressure 67 mm[Hg] 67 mm[Hg] MAH[facility]Z ([facility]) Body height 70 [in_i] 70 [in_i] [facility]Z ([facility]) Body mass index (BMI) [Ratio] 31.7 kg/m2 31.7 k g/m2 [facility] ([facility]) Systolic blood pressure 100 mm[Hg] 100 mm[Hg] A THENA ([facility]) Body weight 3529.6 [oz_av] 3529.6 [oz_av] ATHEN A ([facility]) Body weight 3529.6 [oz_av] 3529.6 [oz_av] ATHEN A ([facility]) Diastolic blood pressure 67 mm[Hg] 67 mm[Hg] MAH[facility]Z ([facility]) Body height 70 [in_i] 70 [in_i] [facility]Z ([facility]) Body mass index (BMI) [Ratio] 31.7 kg/m2 31.7 k g/m2 [facility] ([facility]) Systolic blood pressure 100 mm[Hg] 100 mm[Hg] A THENA ([facility]) Diastolic blood pressure 67 mm[Hg] 67 mm[Hg] [facility] ([facility]) Body height 70 [in_i] 70 [in_i] [facility] ([facility]) Body mass index (BMI) [Ratio] 31.7 kg/m2 31.7 k g/m2 [facility] ([facility]) Systolic blood pressure 100 mm[Hg] 100 mm[Hg] A KURTA ([facility]) Body weight 3529.6 [oz_av] 3529.6 [oz_av] ATHEN A ([facility]) Diastolic blood pressure 67 mm[Hg] 67 mm[Hg] MAHNAZ ([facility]) Body height 70 [in_i] 70 [in_i] [facility]Z ([facility]) Body mass index (BMI) [Ratio] 31.7 kg/m2 31.7 k g/m2 [facility]Z ([facility]) Systolic blood pressure 100 mm[Hg] 100 mm[Hg] A JAZ ([facility]) Body weight 3529.6 [oz_av] 3529.6 [oz_av] ATHEN A ([facility]) Diastolic blood pressure 67 mm[Hg] 67 mm[Hg] [facility]HNAZ ([facility]) Body height 70 [in_i] 70 [in_i] [facility]Z ([facility]) Body mass index (BMI) [Ratio] 31.7 kg/m2 31.7 k g/m2 [facility]Z ([facility]) Systolic blood pressure 100 mm[Hg] 100 mm[Hg] A JAZ ([facility]) Body weight 3529.6 [oz_av] 3529.6 [oz_av] ATHEN A ([facility]) Diastolic blood pressure 67 mm[Hg] 67 mm[Hg] [facility]Z ([facility]) Body height 70 [in_i] 70 [in_i] [facility]Z ([facility]) Body mass index (BMI) [Ratio] 31.7 kg/m2 31.7 k g/m2 [facility] ([facility]) Systolic blood pressure 100 mm[Hg] 100 mm[Hg] A [facility]URTA ([facility]) Body weight 3529.6 [oz_av] 3529.6 [oz_av] ATHEN A ([facility]) Diastolic blood pressure 76 mm[Hg] 76 mm[Hg] [facility]Z ([facility]) Body height 70 [in_i] 70 [in_i] [facility]HNAZ ([facility]) Body mass index (BMI) [Ratio] 31.7 kg/m2 31.7 k g/m2 [facility]Z ([facility]) Systolic blood pressure 115 mm[Hg] 115 mm[Hg] A [facility] ([facility]) Body weight 3536 [oz_av] 3536 [oz_av] [facility]Z ([facility]) Diastolic blood pressure 76 mm[Hg] 76 mm[Hg] MAHNAZ ([facility]) Diastolic blood pressure 76 mm[Hg] 76 mm[Hg] [facility]Z ([facility]) Body height 70 [in_i] 70 [in_i] [facility]Z ([facility]) Body mass index (BMI) [Ratio] 31.7 kg/m2 31.7 k g/m2 [facility] ([facility]) Systolic blood pressure 115 mm[Hg] 115 mm[Hg] A [facility] ([facility]) Body weight 3536 [oz_av] 3536 [oz_av] [facility]Z ([facility]) Body height 70 [in_i] 70 [in_i] [facility]HNAZ ([facility]) Body height 70 [in_i] 70 [in_i] MAH[facility]Z ([facility]) Diastolic blood pressure 76 mm[Hg] 76 mm[Hg] [facility]Z ([facility]) Body mass index (BMI) [Ratio] 31.7 kg/m2 31.7 k g/m2 [facility]Z ([facility]) Systolic blood pressure 115 mm[Hg] 115 mm[Hg] [facility] Body weight 3536 [oz_av] 3536 [oz_av] [facility]Z ([facility]) Body mass index (BMI) [Ratio] 31.7 kg/m2 31.7 k g/m2 [facility] ([facility]) Systolic blood pressure 115 mm[Hg] 115 mm[Hg] [facility] Body weight 3536 [oz_av] 3536 [oz_av] [facility]Z ([facility]) Diastolic blood pressure 76 mm[Hg] 76 mm[Hg] [facility]Z ([facility]) Body height 70 [in_i] 70 [in_i] [facility]Z ([facility]) Body mass index (BMI) [Ratio] 31.7 kg/m2 31.7 k g/m2 [facility] ([facility]) Systolic blood pressure 115 mm[Hg] 115 mm[Hg] A [facility] ([facility]) Body weight 3536 [oz_av] 3536 [oz_av] [facility]Z ([facility]) Diastolic blood pressure 76 mm[Hg] 76 mm[Hg] [facility]Z ([facility]) Body height 70 [in_i] 70 [in_i] [facility]Z ([facility]) Body mass index (BMI) [Ratio] 31.7 kg/m2 31.7 k g/m2 [facility]Z ([facility]) Systolic blood pressure 115 mm[Hg] 115 mm[Hg] A [facility] ([facility]) Body weight 3536 [oz_av] 3536 [oz_av] [facility]Z ([facility]) Diastolic blood pressure 76 mm[Hg] 76 mm[Hg] [facility]Z ([facility]) Body mass index (BMI) [Ratio] 31.7 kg/m2 31.7 k g/m2 [facility]Z ([facility]) Systolic blood pressure 115 mm[Hg] 115 mm[Hg] [facility] Body weight 3536 [oz_av] 3536 [oz_av] [facility] ([facility]) Body height 70 [in_i] 70 [in_i] MAHNAZ ([facility]) Diastolic blood pressure 76 mm[Hg] 76 mm[Hg] [facility] ([facility]) Body mass index (BMI) [Ratio] 31.7 kg/m2 31.7 k g/m2 [facility] ([facility]) Systolic blood pressure 115 mm[Hg] 115 mm[Hg] [facility] Body height 70 [in_i] 70 [in_i] MAH[facility]Z ([facility]) Body weight 3536 [oz_av] 3536 [oz_av] [facility] ([facility]) Diastolic blood pressure 76 mm[Hg] 76 mm[Hg] [facility]Z ([facility]) Body height 70 [in_i] 70 [in_i] MA[facility]Z ([facility]) Body mass index (BMI) [Ratio] 31.7 kg/m2 31.7 k g/m2 [facility] ([facility]) Systolic blood pressure 115 mm[Hg] 115 mm[Hg] [facility] Body weight 3536 [oz_av] 3536 [oz_av] [facility] ([facility]) Diastolic blood pressure 76 mm[Hg] 76 mm[Hg] [facility]Z ([facility]) Body height 70 [in_i] 70 [in_i] [facility]Z ([facility]) Body mass index (BMI) [Ratio] 31.7 kg/m2 31.7 k g/m2 [facility] ([facility]) Systolic blood pressure 115 mm[Hg] 115 mm[Hg] A [facility] ([facility]) Body weight 3536 [oz_av] 3536 [oz_av] MAHNAZ ([facility]) Diastolic blood pressure 76 mm[Hg] 76 mm[Hg] MAHNAZ ([facility]) Body height 70 [in_i] 70 [in_i] MAHNAZ ([facility]) Body mass index (BMI) [Ratio] 31.7 kg/m2 31.7 k g/m2 MAHANZ ([facility]) Systolic blood pressure 115 mm[Hg] 115 mm[Hg] A [facility] ([facility]) Body weight 3536 [oz_av] 3536 [oz_av] MAHNAZ ([facility]) Diastolic blood pressure 76 mm[Hg] 76 mm[Hg] MAHNAZ ([facility]) Body height 70 [in_i] 70 [in_i] MAHNAZ ([facility]) Body mass index (BMI) [Ratio] 31.7 kg/m2 31.7 k g/m2 MAHNA[facility] ([facility]) Systolic blood pressure 115 mm[Hg] 115 mm[Hg] [facility] [facility] weight 3536 [oz_av] 3536 [oz_av] MAHNAZ ([facility]) Body height 70 [in_i] 70 [in_i] MAHNAZ ([facility]) Body mass index (BMI) [Ratio] 31.7 kg/m2 31.7 k g/m2 MAHNAZ ([facility]) Systolic blood pressure 115 mm[Hg] 115 mm[Hg] [facility]) Body weight 3536 [oz_av] 3536 [oz_av] MAHNAZ ([facility]) Diastolic blood pressure 76 mm[Hg] 76 mm[Hg] MAHNAZ ([facility]) Diastolic blood pressure 76 mm[Hg] 76 mm[Hg] MAHNAZ ([facility]) Body height 70 [in_i] 70 [in_i] MAHNAZ ([facility]) Body mass index (BMI) [Ratio] 31.7 kg/m2 31.7 k g/m2 MAHNAZ ([facility]) Systolic blood pressure 115 mm[Hg] 115 mm[Hg] A THENA ([facility]) Body weight 3536 [oz_av] 3536 [oz_av] MAHNAZ ([facility]) Diastolic blood pressure 73 mm[Hg] 73 mm[Hg] MAHNAZ ([facility]) Body height 70 [in_i] 70 [in_i] MAHNAZ ([facility]) Body mass index (BMI) [Ratio] 32.2 kg/m2 32.2 k g/m2 MAHNAZ ([facility]) Systolic blood pressure 113 mm[Hg] 113 mm[Hg] A THENA ([facility]) Body weight 3590 [oz_av] 3590 [oz_av] MAHNAZ ([facility]) Diastolic blood pressure 75 mm[Hg] 75 mm[Hg] MAHNAZ ([facility]) Body height 70 [in_i] 70 [in_i] MAHNAZ ([facility]) Body mass index (BMI) [Ratio] 33 kg/m2 33 kg/ m2 MAHNAZ ([facility]) Systolic blood pressure 120 mm[Hg] 120 mm[Hg] A THENA ([facility]) Body weight 230 [lb_av] 230 [lb_av] [facility]NAZ ([facility]) Diastolic blood pressure 73 mm[Hg] 73 mm[Hg] MAHNAZ ([facility]) Body height 70 [in_i] 70 [in_i] MAHNAZ ([facility]) Body mass index (BMI) [Ratio] 32.2 kg/m2 32.2 k g/m2 MAHNAZ ([facility]) Systolic blood pressure 113 mm[Hg] 113 mm[Hg] A THENA ([facility]) Body weight 3590 [oz_av] 3590 [oz_av] MAHNAZ ([facility]) Diastolic blood pressure 73 mm[Hg] 73 mm[Hg] MAHNAZ ([facility]) Body height 70 [in_i] 70 [in_i] MAHNAZ ([facility]) Body mass index (BMI) [Ratio] 32.2 kg/m2 32.2 k g/m2 MAHNAZ ([facility]) Systolic blood pressure 113 mm[Hg] 113 mm[Hg] [facility]) Body weight 3590 [oz_av] 3590 [oz_av] MAHNAZ ([facility]) Diastolic blood pressure 73 mm[Hg] 73 mm[Hg] MAHNAZ ([facility]) Body height 70 [in_i] 70 [in_i] MAHNAZ ([facility]) Body mass index (BMI) [Ratio] 32.2 kg/m2 32.2 k g/m2 MAHNAZ ([facility]) Systolic blood pressure 113 mm[Hg] 113 mm[Hg] A KURTA ([facility]) Body weight 3590 [oz_av] 3590 [oz_av] MAHNAZ ([facility]) Diastolic blood pressure 73 mm[Hg] 73 mm[Hg] MAHNAZ ([facility]) Body height 70 [in_i] 70 [in_i] MAHNAZ ([facility]) Body mass index (BMI) [Ratio] 32.2 kg/m2 32.2 k g/m2 MAHNAZ ([facility]) Systolic blood pressure 113 mm[Hg] 113 mm[Hg] A THENA ([facility]) Body weight 3590 [oz_av] 3590 [oz_av] MAHNAZ ([facility]) Diastolic blood pressure 73 mm[Hg] 73 mm[Hg] MAHNAZ ([facility]) Body height 70 [in_i] 70 [in_i] MAHNAZ ([facility]) Body mass index (BMI) [Ratio] 32.2 kg/m2 32.2 k g/m2 MAHNAZ ([facility]) Systolic blood pressure 113 mm[Hg] 113 mm[Hg] [facility]) Body weight 3590 [oz_av] 3590 [oz_av] MAHNAZ ([facility]) Body mass index (BMI) [Ratio] 32.2 kg/m2 32.2 k g/m2 MAHNAZ ([facility]) Systolic blood pressure 113 mm[Hg] 113 mm[Hg] A THENA ([facility]) Body weight 3590 [oz_av] 3590 [oz_av] MAHNAZ ([facility]) Diastolic blood pressure 73 mm[Hg] 73 mm[Hg] MAHNAZ ([facility]) Body height 70 [in_i] 70 [in_i] MAHNAZ ([facility]) Diastolic blood pressure 73 mm[Hg] 73 mm[Hg] MAHNAZ ([facility]) Body height 70 [in_i] 70 [in_i] MAHNAZ ([facility]) Body mass index (BMI) [Ratio] 32.2 kg/m2 32.2 k g/m2 MAHNAZ ([facility]) Systolic blood pressure 113 mm[Hg] 113 mm[Hg] [facility]) Body weight 3590 [oz_av] 3590 [oz_av] MAHNAZ ([facility]) Systolic blood pressure 113 mm[Hg] 113 mm[Hg] A THENA ([facility]) Diastolic blood pressure 73 mm[Hg] 73 mm[Hg] MAHNAZ ([facility]) Body height 70 [in_i] 70 [in_i] MAHNAZ ([facility]) Body mass index (BMI) [Ratio] 32.2 kg/m2 32.2 k g/m2 MAHNAZ ([facility]) Body weight 3590 [oz_av] 3590 [oz_av] MAHNAZ ([facility]) Diastolic blood pressure 73 mm[Hg] 73 mm[Hg] MAHNAZ ([facility]) Body height 70 [in_i] 70 [in_i] MAHNAZ ([facility]) Body mass index (BMI) [Ratio] 32.2 kg/m2 32.2 k g/m2 MAHNAZ ([facility]) Systolic blood pressure 113 mm[Hg] 113 mm[Hg] A THENA ([facility]) Body weight 3590 [oz_av] 3590 [oz_av] MAHNAZ ([facility]) Diastolic blood pressure 73 mm[Hg] 73 mm[Hg] MAHNAZ ([facility]) Body height 70 [in_i] 70 [in_i] MAHNAZ ([facility]) Body mass index (BMI) [Ratio] 32.2 kg/m2 32.2 k g/m2 MAHNAZ ([facility]) Systolic blood pressure 113 mm[Hg] 113 mm[Hg] [facility]) Body weight 3590 [oz_av] 3590 [oz_av] MAHNAZ ([facility]) Diastolic blood pressure 73 mm[Hg] 73 mm[Hg] MAHNAZ ([facility]) Body height 70 [in_i] 70 [in_i] MAHNAZ ([facility]) Body mass index (BMI) [Ratio] 32.2 kg/m2 32.2 k g/m2 MAHNAZ ([facility]) Systolic blood pressure 113 mm[Hg] 113 mm[Hg] A [facility] ([facility]) Body weight 3590 [oz_av] 3590 [oz_av] MAHNAZ ([facility]) Diastolic blood pressure 73 mm[Hg] 73 mm[Hg] MAHNAZ ([facility]) Body height 70 [in_i] 70 [in_i] MAHNAZ ([facility]) Body mass index (BMI) [Ratio] 32.2 kg/m2 32.2 k g/m2 MAHNAZ ([facility]) Systolic blood pressure 113 mm[Hg] 113 mm[Hg] A THENA ([facility]) Body weight 3590 [oz_av] 3590 [oz_av] MAHNAZ ([facility]) Diastolic blood pressure 73 mm[Hg] 73 mm[Hg] MAHNAZ ([facility]) Body height 70 [in_i] 70 [in_i] MAHNAZ ([facility]) Body mass index (BMI) [Ratio] 32.2 kg/m2 32.2 k g/m2 MAHNAZ ([facility]) Systolic blood pressure 113 mm[Hg] 113 mm[Hg] [facility]) Body weight 3590 [oz_av] 3590 [oz_av] MAHNAZ ([facility]) Diastolic blood pressure 73 mm[Hg] 73 mm[Hg] MAHNAZ ([facility]) Body height 70 [in_i] 70 [in_i] MAHNAZ ([facility]) Body mass index (BMI) [Ratio] 32.2 kg/m2 32.2 k g/m2 MAHNAZ ([facility]) Systolic blood pressure 113 mm[Hg] 113 mm[Hg] A [facility] ([facility]) Body weight 3590 [oz_av] 3590 [oz_av] MAHNAZ ([facility]) Body height 70 [in_i] 70 [in_i] MAHNAZ ([facility]) Body mass index (BMI) [Ratio] 32.26 kg/m2 32.26 kg/m2 MAHNAZ ([facility]) Diastolic blood pressure 62 mm[Hg] 62 mm[Hg] MAHNAZ ([facility]) Systolic blood pressure 110 mm[Hg] 110 mm[Hg] A [facility] ([facility]) Body weight 3584 [oz_av] 3584 [oz_av] MAHNAZ ([facility]) Diastolic blood pressure 62 mm[Hg] 62 mm[Hg] MAHNAZ ([facility]) Body height 70 [in_i] 70 [in_i] MAHNAZ ([facility]) Body mass index (BMI) [Ratio] 32.26 kg/m2 32.26 kg/m2 MAHNAZ ([facility]) Systolic blood pressure 110 mm[Hg] 110 mm[Hg] [facility]) Body weight 3584 [oz_av] 3584 [oz_av] MAHNAZ ([facility]) Systolic blood pressure 110 mm[Hg] 110 mm[Hg] A THENA ([facility]) Body weight 3584 [oz_av] 3584 [oz_av] MAHNAZ ([facility]) Diastolic blood pressure 62 mm[Hg] 62 mm[Hg] MAHNAZ ([facility]) Body height 70 [in_i] 70 [in_i] MAHNAZ ([facility]) Body mass index (BMI) [Ratio] 32.26 kg/m2 32.26 kg/m2 MAHNAZ ([facility]) Body height 70 [in_i] 70 [in_i] MAHNAZ ([facility]) Body mass index (BMI) [Ratio] 32.26 kg/m2 32.26 kg/m2 MAHNAZ ([facility]) Systolic blood pressure 110 mm[Hg] 110 mm[Hg] [facility]) Body weight 3584 [oz_av] 3584 [oz_av] MAHNAZ ([facility]) Diastolic blood pressure 62 mm[Hg] 62 mm[Hg] MAHNAZ ([facility]) Diastolic blood pressure 62 mm[Hg] 62 mm[Hg] MAHNAZ ([facility]) Body height 70 [in_i] 70 [in_i] MAHNAZ ([facility]) Body mass index (BMI) [Ratio] 32.26 kg/m2 32.26 kg/m2 MAHNAZ ([facility]) Systolic blood pressure 110 mm[Hg] 110 mm[Hg] [facility]) Body weight 3584 [oz_av] 3584 [oz_av] MAHNAZ ([facility]) Diastolic blood pressure 62 mm[Hg] 62 mm[Hg] MAHNAZ ([facility]) Body height 70 [in_i] 70 [in_i] MAHNAZ ([facility]) Body mass index (BMI) [Ratio] 32.26 kg/m2 32.26 kg/m2 MAHNAZ ([facility]) Systolic blood pressure 110 mm[Hg] 110 mm[Hg] A THENA ([facility]) Body weight 3584 [oz_av] 3584 [oz_av] MAHNAZ ([facility]) Diastolic blood pressure 62 mm[Hg] 62 mm[Hg] MAHNAZ ([facility]) Body height 70 [in_i] 70 [in_i] MAHNAZ ([facility]) Body mass index (BMI) [Ratio] 32.26 kg/m2 32.26 kg/m2 MAHNAZ ([facility]) Systolic blood pressure 110 mm[Hg] 110 mm[Hg] A [facility] ([facility]) Body weight 3584 [oz_av] 3584 [oz_av] MAHNAZ ([facility]) Diastolic blood pressure 62 mm[Hg] 62 mm[Hg] MAHNAZ ([facility]) Body height 70 [in_i] 70 [in_i] MAHNAZ ([facility]) Body mass index (BMI) [Ratio] 32.26 kg/m2 32.26 kg/m2 MAHNAZ ([facility]) Systolic blood pressure 110 mm[Hg] 110 mm[Hg] A [facility] ([facility]) Body weight 3584 [oz_av] 3584 [oz_av] MAHNAZ ([facility]) Diastolic blood pressure 62 mm[Hg] 62 mm[Hg] MAHNAZ ([facility]) Body height 70 [in_i] 70 [in_i] MAHNAZ ([facility]) Body mass index (BMI) [Ratio] 32.26 kg/m2 32.26 kg/m2 MAHNAZ ([facility]) Systolic blood pressure 110 mm[Hg] 110 mm[Hg] A [facility] ([facility]) Body weight 3584 [oz_av] 3584 [oz_av] MAHNAZ ([facility]) Diastolic blood pressure 62 mm[Hg] 62 mm[Hg] MAHNAZ ([facility]) Body height 70 [in_i] 70 [in_i] MAHNAZ ([facility]) Body mass index (BMI) [Ratio] 32.26 kg/m2 32.26 kg/m2 MAHNAZ ([facility]) Systolic blood pressure 110 mm[Hg] 110 mm[Hg] A THENA ([facility]) Body weight 3584 [oz_av] 3584 [oz_av] MAHNAZ ([facility]) Body temperature 97.1 [degF] 97.1 [degF] MEDENT ([facility] Systolic blood pressure 134 mm[Hg] 134 mm[Hg] M EDENT ([facility], [facility]) Body weight 228.00 [lb_av] 228.00 [lb_av] MEDEN T ([facility], [facility]) Oxygen saturation in Arterial blood by Pulse oximetry 98 % 98 % [facility] ([facility]) Body height 70 [in_i] 70 [in_i] [facility] ([facility]) 5'10" Body mass index (BMI) [Ratio] 32.7 kg/m2 32.7 k g/m2 [facility] ([facility]) Diastolic blood pressure 84 mm[Hg] 84 mm[Hg] [facility] ([facility]) Heart rate 96 /min 96 /min [facility] ([facility]) Respiratory rate 16 /min 16 /min [facility] ( [facility]) Patient Treatment Plan of Care Planned Activity Planned Date Details Description Data Source (s) Escitalopram 10 MG Oral Tablet [Lexapro] 02/14/2021 12:00:00 AM EDT MAHNAZ ([facility]) Carisoprodol 350 MG Oral Tablet MAHNAZ ([facility]) Amoxicillin 875 MG / Clavulanate 125 MG Oral Tablet MAHNAZ ([facility]) albuterol sulfate HFA 90 mcg/actuation aerosol inhaler MAHNAZ ([facility]) tizanidine 4 MG Oral Capsule MAHNAZ ([facility]) Prednisone 20 MG Oral Tablet MAHNAZ ([facility]) paroxetine 10 mg tablet TAKE ONE TABLET BY MOUTH EVERY DAY MAHNAZ ([facility]) Acetaminophen 325 MG / Oxycodone Hydrochloride 5 MG Oral Tablet MAHNAZ ([facility]) Naproxen 500 MG Oral Tablet MAHNAZ ([facility]) methylprednisolone 4 mg tablets in a dose pack MAHNAZ ([facility]) meloxicam 15 MG Oral Tablet MAHNAZ ([facility]) lidocaine 5 % topical patch MAHNAZ ([facility]) Ketorolac Tromethamine 10 MG Oral Tablet MAHNAZ ([facility]) Ibuprofen 600 MG Oral Tablet MAHNAZ ([facility]) Cyclobenzaprine hydrochloride 5 MG Oral Tablet MAHNAZ ([facility]) Cyclobenzaprine hydrochloride 10 MG Oral Tablet MAH[facility]Z ([facility]) Carisoprodol 350 MG Oral Tablet MAHNAZ ([facility]) Amoxicillin 875 MG / Clavulanate 125 MG Oral Tablet MAHNAZ ([facility]) albuterol sulfate HFA 90 mcg/actuation aerosol inhaler MAHNAZ ([facility]) tizanidine 4 MG Oral Capsule MAHNAZ ([facility]) Prednisone 20 MG Oral Tablet MAH[facility]Z ([facility]) paroxetine 10 mg tablet TAKE ONE TABLET BY MOUTH EVERY DAY MAH[facility]Z ([facility]) Naproxen 500 MG Oral Tablet MAH[facility]Z ([facility]) methylprednisolone 4 mg tablets in a dose pack MAHNAZ ([facility]) meloxicam 15 MG Oral Tablet MAH[facility]Z ([facility]) lidocaine 5 % topical patch MAHNAZ ([facility]) Ketorolac Tromethamine 10 MG Oral Tablet MAH[facility]Z ([facility]) Ibuprofen 600 MG Oral Tablet MAH[facility]Z ([facility]) Cyclobenzaprine hydrochloride 5 MG Oral Tablet MAH[facility]Z ([facility]) Cyclobenzaprine hydrochloride 10 MG Oral Tablet MAH[facility]Z ([facility]) Carisoprodol 350 MG Oral Tablet [facility]Z ([facility]) Amoxicillin 875 MG / Clavulanate 125 MG Oral Tablet [facility]Z ([facility]) albuterol sulfate HFA 90 mcg/actuation aerosol inhaler MAHNAZ ([facility]) tizanidine 4 MG Oral Capsule MAHNAZ ([facility]) Prednisone 20 MG Oral Tablet MAHNAZ ([facility]) paroxetine 10 mg tablet TAKE ONE TABLET BY MOUTH EVERY DAY MAH[facility]Z ([facility]) Naproxen 500 MG Oral Tablet MAH[facility]Z ([facility]) methylprednisolone 4 mg tablets in a dose pack MAHNAZ ([facility]) meloxicam 15 MG Oral Tablet MAH[facility]Z ([facility]) lidocaine 5 % topical patch MAHNAZ ([facility]) Ketorolac Tromethamine 10 MG Oral Tablet MAHNAZ ([facility]) Ibuprofen 600 MG Oral Tablet MAH[facility]Z ([facility]) Cyclobenzaprine hydrochloride 5 MG Oral Tablet MAHNAZ ([facility]) Cyclobenzaprine hydrochloride 10 MG Oral Tablet MAHNAZ ([facility]) Carisoprodol 350 MG Oral Tablet MAH[facility]Z ([facility]) Amoxicillin 875 MG / Clavulanate 125 MG Oral Tablet MAH[facility]Z ([facility]) albuterol sulfate HFA 90 mcg/actuation aerosol inhaler MAHNAZ ([facility]) tizanidine 4 MG Oral Capsule MAHNAZ ([facility]) Prednisone 20 MG Oral Tablet MAH[facility]Z ([facility]) Naproxen 500 MG Oral Tablet MAH[facility]Z ([facility]) methylprednisolone 4 mg tablets in a dose pack MAHNAZ ([facility]) lidocaine 5 % topical patch MAHNAZ ([facility]) Ketorolac Tromethamine 10 MG Oral Tablet MAH[facility]Z ([facility]) Cyclobenzaprine hydrochloride 10 MG Oral Tablet MAH[facility]Z ([facility]) Carisoprodol 350 MG Oral Tablet MAH[facility]Z ([facility]) Amoxicillin 875 MG / Clavulanate 125 MG Oral Tablet MAH[facility]Z ([facility]) albuterol sulfate HFA 90 mcg/actuation aerosol inhaler MAHNAZ ([facility]) tizanidine 4 MG Oral Capsule MAHNAZ ([facility]) Prednisone 20 MG Oral Tablet MAHNAZ ([facility]) Naproxen 500 MG Oral Tablet MAHNAZ ([facility]) methylprednisolone 4 mg tablets in a dose pack MAHNAZ ([facility]) lidocaine 5 % topical patch MAHNAZ ([facility]) Ketorolac Tromethamine 10 MG Oral Tablet MAHNAZ ([facility]) Ibuprofen 600 MG Oral Tablet MAH[facility]Z ([facility]) Cyclobenzaprine hydrochloride 5 MG Oral Tablet MAHNAZ ([facility]) Cyclobenzaprine hydrochloride 10 MG Oral Tablet MAH[facility]Z ([facility]) Carisoprodol 350 MG Oral Tablet MAH[facility]Z ([facility]) Amoxicillin 875 MG / Clavulanate 125 MG Oral Tablet MAH[facility]Z ([facility]) albuterol sulfate HFA 90 mcg/actuation aerosol inhaler MAHNAZ ([facility]) Trazodone Hydrochloride 50 MG Oral Tablet MAHNAZ ([facility]) tizanidine 4 MG Oral Capsule MAHNAZ ([facility]) Prednisone 20 MG Oral Tablet MAH[facility]Z ([facility]) Naproxen 500 MG Oral Tablet MAH[facility]Z ([facility]) methylprednisolone 4 mg tablets in a dose pack MAHNAZ ([facility]) meloxicam 15 MG Oral Tablet MAH[facility]Z ([facility]) lidocaine 5 % topical patch MAHNAZ ([facility]) Ketorolac Tromethamine 10 MG Oral Tablet MAH[facility]Z ([facility]) Ibuprofen 600 MG Oral Tablet MAH[facility]Z ([facility]) Cyclobenzaprine hydrochloride 5 MG Oral Tablet MAH[facility]Z ([facility]) Cyclobenzaprine hydrochloride 10 MG Oral Tablet MAH[facility]Z ([facility]) Carisoprodol 350 MG Oral Tablet MAH[facility]Z ([facility]) Amoxicillin 875 MG / Clavulanate 125 MG Oral Tablet MAH[facility]Z ([facility]) albuterol sulfate HFA 90 mcg/actuation aerosol inhaler MAHNAZ ([facility]) Trazodone Hydrochloride 50 MG Oral Tablet MAH[facility]Z ([facility]) tizanidine 4 MG Oral Capsule MAHNAZ ([facility]) Prednisone 20 MG Oral Tablet MAH[facility]Z ([facility]) Naproxen 500 MG Oral Tablet MAH[facility]Z ([facility]) methylprednisolone 4 mg tablets in a dose pack MAHNAZ ([facility]) meloxicam 15 MG Oral Tablet MAH[facility]Z ([facility]) lidocaine 5 % topical patch MAHNAZ ([facility]) Ketorolac Tromethamine 10 MG Oral Tablet MA[facility]Z ([facility]) Ibuprofen 600 MG Oral Tablet MA[facility]Z ([facility]) Cyclobenzaprine hydrochloride 5 MG Oral Tablet MAH[facility]Z ([facility]) Cyclobenzaprine hydrochloride 10 MG Oral Tablet MAH[facility]Z ([facility]) Carisoprodol 350 MG Oral Tablet [facility]Z ([facility]) Amoxicillin 875 MG / Clavulanate 125 MG Oral Tablet [facility]Z ([facility]) albuterol sulfate HFA 90 mcg/actuation aerosol inhaler MAHNAZ ([facility]) Trazodone Hydrochloride 50 MG Oral Tablet MAH[facility]Z ([facility]) tizanidine 4 MG Oral Capsule MAH[facility]Z ([facility]) Prednisone 20 MG Oral Tablet [facility]Z ([facility]) Naproxen 500 MG Oral Tablet [facility]Z ([facility]) methylprednisolone 4 mg tablets in a dose pack MAHNAZ ([facility]) meloxicam 15 MG Oral Tablet [facility]Z ([facility]) lidocaine 5 % topical patch MAHNAZ ([facility]) Ketorolac Tromethamine 10 MG Oral Tablet [facility]Z ([facility]) Ibuprofen 600 MG Oral Tablet [facility] ([facility]) Cyclobenzaprine hydrochloride 5 MG Oral Tablet [facility]Z ([facility]) Cyclobenzaprine hydrochloride 10 MG Oral Tablet [facility]Z ([facility]) Carisoprodol 350 MG Oral Tablet [facility]Z ([facility]) Amoxicillin 875 MG / Clavulanate 125 MG Oral Tablet MAH[facility]Z ([facility]) albuterol sulfate HFA 90 mcg/actuation aerosol inhaler MAHNAZ ([facility]) tizanidine 4 MG Oral Capsule MAH[facility]Z ([facility]) Prednisone 20 MG Oral Tablet [facility]Z ([facility]) Naproxen 500 MG Oral Tablet [facility]Z ([facility]) methylprednisolone 4 mg tablets in a dose pack MAHNAZ ([facility]) meloxicam 15 MG Oral Tablet [facility]Z ([facility]) lidocaine 5 % topical patch MAHNAZ ([facility]) Ketorolac Tromethamine 10 MG Oral Tablet [facility]Z ([facility]) Ibuprofen 600 MG Oral Tablet MA[facility]Z ([facility]) Cyclobenzaprine hydrochloride 5 MG Oral Tablet [facility]Z ([facility]) Cyclobenzaprine hydrochloride 10 MG Oral Tablet [facility]Z ([facility]) Carisoprodol 350 MG Oral Tablet [facility]Z ([facility]) tizanidine 4 MG Oral Capsule MAH[facility]Z ([facility]) Prednisone 20 MG Oral Tablet [facility]Z ([facility]) paroxetine 10 mg tablet TAKE ONE TABLET BY MOUTH EVERY DAY MAH[facility]Z ([facility]) Acetaminophen 325 MG / Oxycodone Hydrochloride 5 MG Oral Tablet [facility]Z ([facility]) Naproxen 500 MG Oral Tablet [facility]Z ([facility]) methylprednisolone 4 mg tablets in a dose pack MAH[facility]Z ([facility]) meloxicam 15 MG Oral Tablet [facility]Z ([facility]) lidocaine 5 % topical patch MAHNAZ ([facility]) Ketorolac Tromethamine 10 MG Oral Tablet [facility]Z ([facility]) Ibuprofen 600 MG Oral Tablet [facility]Z ([facility]) Cyclobenzaprine hydrochloride 5 MG Oral Tablet [facility]Z ([facility]) Cyclobenzaprine hydrochloride 10 MG Oral Tablet [facility]Z ([facility]) Carisoprodol 350 MG Oral Tablet [facility]Z ([facility]) Amoxicillin 875 MG / Clavulanate 125 MG Oral Tablet [facility]Z ([facility]) albuterol sulfate HFA 90 mcg/actuation aerosol inhaler MAHNAZ ([facility]) tizanidine 4 MG Oral Capsule MAH[facility]Z ([facility]) Prednisone 20 MG Oral Tablet [facility]Z ([facility]) paroxetine 10 mg tablet TAKE ONE TABLET BY MOUTH EVERY DAY MAH[facility]Z ([facility]) Acetaminophen 325 MG / Oxycodone Hydrochloride 5 MG Oral Tablet MAH[facility]Z ([facility]) Naproxen 500 MG Oral Tablet [facility]Z ([facility]) methylprednisolone 4 mg tablets in a dose pack MAHNAZ ([facility]) meloxicam 15 MG Oral Tablet MAH[facility]Z ([facility]) lidocaine 5 % topical patch MAHNAZ ([facility]) Ketorolac Tromethamine 10 MG Oral Tablet MAH[facility]Z ([facility]) Ibuprofen 600 MG Oral Tablet [facility] ([facility]) Cyclobenzaprine hydrochloride 5 MG Oral Tablet [facility]Z ([facility]) Cyclobenzaprine hydrochloride 10 MG Oral Tablet [facility] ([facility]) Carisoprodol 350 MG Oral Tablet [facility] ([facility]) Amoxicillin 875 MG / Clavulanate 125 MG Oral Tablet [facility] ([facility]) albuterol sulfate HFA 90 mcg/actuation aerosol inhaler [facility] ([facility]) tizanidine 4 MG Oral Capsule [facility] ([facility]) Prednisone 20 MG Oral Tablet [facility] ([facility]) paroxetine 10 mg tablet TAKE ONE TABLET BY MOUTH EVERY DAY [facility] ([facility]) Acetaminophen 325 MG / Oxycodone Hydrochloride 5 MG Oral Tablet [facility] ([facility]) Naproxen 500 MG Oral Tablet [facility] ([facility]) methylprednisolone 4 mg tablets in a dose pack [facility] ([facility]) meloxicam 15 MG Oral Tablet [facility] ([facility]) lidocaine 5 % topical patch [facility] ([facility]) Ketorolac Tromethamine 10 MG Oral Tablet [facility] ([facility]) Ibuprofen 600 MG Oral Tablet [facility] ([facility]) Cyclobenzaprine hydrochloride 5 MG Oral Tablet [facility] ([facility]) Cyclobenzaprine hydrochloride 10 MG Oral Tablet [facility] ([facility]) Amoxicillin 875 MG / Clavulanate 125 MG Oral Tablet [facility] ([facility]) albuterol sulfate HFA 90 mcg/actuation aerosol inhaler [facility] ([facility]) tizanidine 4 MG Oral Capsule [facility] ([facility]) Prednisone 20 MG Oral Tablet [facility] ([facility]) Naproxen 500 MG Oral Tablet [facility] ([facility]) meloxicam 15 MG Oral Tablet [facility] ([facility]) Ketorolac Tromethamine 10 MG Oral Tablet [facility] ([facility]) Ibuprofen 600 MG Oral Tablet [facility] ([facility]) Cyclobenzaprine hydrochloride 5 MG Oral Tablet [facility] ([facility]) Cyclobenzaprine hydrochloride 10 MG Oral Tablet [facility] ([facility]) Amoxicillin 875 MG / Clavulanate 125 MG Oral Tablet [facility] ([facility]) tizanidine 4 MG Oral Capsule [facility] ([facility]) Prednisone 20 MG Oral Tablet [facility] ([facility]) Naproxen 500 MG Oral Tablet [facility] ([facility]) meloxicam 15 MG Oral Tablet [facility] ([facility]) Ketorolac Tromethamine 10 MG Oral Tablet [facility] ([facility]) Ibuprofen 600 MG Oral Tablet [facility] ([facility]) Cyclobenzaprine hydrochloride 5 MG Oral Tablet [facility] ([facility]) Cyclobenzaprine hydrochloride 10 MG Oral Tablet [facility] ([facility]) Amoxicillin 875 MG / Clavulanate 125 MG Oral Tablet [facility] ([facility]) tizanidine 4 MG Oral Capsule [facility] ([facility]) Prednisone 20 MG Oral Tablet [facility] ([facility]) Naproxen 500 MG Oral Tablet [facility] ([facility]) methylprednisolone 4 mg tablets in a dose pack [facility] ([facility]) Ketorolac Tromethamine 10 MG Oral Tablet [facility] ([facility]) Cyclobenzaprine hydrochloride 10 MG Oral Tablet [facility] ([facility]) Amoxicillin 875 MG / Clavulanate 125 MG Oral Tablet [facility] ([facility])
== END 2021-04-26 18:06 | disposition home or self-care (01) ==
LOC: M ED 15:25
DX: S80.12XA Contusion of left lower leg, initial encounter (principal); X50.0XXA Overexertion from strenuous movement or load, initial encounter; Y92.9 Unspecified place or not applicable; Y93.9 Activity, unspecified; Y99.9 Unspecified external cause status; F17.200 Nicotine dependence, unspecified, uncomplicated; Z79.899 Other long term (current) drug therapy

== ENCOUNTER → 2021-06-20 | Outpatient (CLI) | payer SELFPAY ==
[~2021-06-20] MED LIST changes: +LEXA1TAB; +LEXA1TAB PO; +NAPR-837 PO; -OMEP-221 PO; +OMEP40CA5 PO; +PANT40TA29 PO; +ROXI1TAB2 PO; +TRAZ-189 PO
== END ==
LOC: M WHC 09:14
PROVIDERS: ATTEND Family Medicine Addiction Medicine
DX: N63.11 Unspecified lump in the right breast, upper outer quadrant (principal); N63.13 Unspecified lump in the right breast, lower outer quadrant
CPT/HCPCS: 76642; 77065; G0279

== ENCOUNTER → 2021-07-13 | Outpatient (CLI) | payer BC ==
[~2021-07-13] MED LIST changes: -LEXA1TAB PO; +OMEP-221 PO; -OMEP40CA5 PO; -PANT40TA29 PO; -ROXI1TAB2 PO; -TRAZ-189 PO
[2021-07-13 09:34] VITALS: BP 98/64
== END ==
LOC: M WHCPRO 07:55
PROVIDERS: ATTEND Surgery
DX: N60.21 Fibroadenosis of right breast (principal); N60.11 Diffuse cystic mastopathy of right breast; N63.10 Unspecified lump in the right breast, unspecified quadrant
CPT/HCPCS: 10005; 10006; 19083; 77065; 88173; 88305; G0279

== ENCOUNTER → 2021-07-20 | Outpatient (CLI) | payer BC ==
[~2021-07-20] MED LIST changes: -OMEP-221 PO; +OMEP40CA5 PO
== END ==
LOC: M RAD 10:48
PROVIDERS: ATTEND Family Medicine Addiction Medicine
DX: Z01.818 Encounter for other preprocedural examination (principal)

== ENCOUNTER → 2021-07-28 | Outpatient (CLI) | payer BC | LOC: M LABSMTC 11:36 | PROVIDERS: ATTEND Anesthesiology | DX: Z20.828 Contact with and (suspected) exposure to other viral communicable diseases (principal); Z11.52 Encounter for screening for COVID-19 ==

== ENCOUNTER 2021-08-02 06:52 | Day surgery (SDC) | payer BC ==
[~2021-08-02] VITALS: Ht 177.8 cm; Wt 83.0 kg
[~2021-08-02 06:52] MED LIST changes: +HEPARIN SOD (PORCINE) 5000UNITS/ML 1ML VIAL/SYRINGE SQ ONE; +LEXA1TAB PO; +LIDOCAINE 1% MDV 20ML VIAL SQ PRN; +LR 1,000 ML IV ONE; +PANT40TA29 PO; +TRAZ-189 PO; +ceFAZolin SOD 2 GM in IV 1 EA IV ONE
[2021-08-02] MEDS ORDERED: BUPIVACAINE HCL 0.25% 30ML VIAL As Ordered ONE (07:09)
[2021-08-02] MEDS ORDERED: LIDOCAINE 1% SDV 30ML VIAL As Ordered ONE (07:09)
[2021-08-02] MEDS ORDERED: dexameTHASONE 4 MG/ML 1ML VIAL (J1100 PER 1MG) As Ordered ONE (07:23)
[2021-08-02] MEDS ORDERED: fentaNYL 100 MCG/2 ML INJECTION As Ordered ONE (07:23)
[2021-08-02] MEDS ORDERED: MIDAZOLAM INJ 2MG/2ML VIAL (J2250 PER 1MG) As Ordered ONE (07:23)
[2021-08-02] MEDS ORDERED: propofoL 200 MG/20 ML VIAL As Ordered ONE (07:23)
[2021-08-02] MEDS ORDERED: ONDANSETRON 4MG/2ML VIAL As Ordered ONE (07:23)
[2021-08-02] MEDS ORDERED: SCOPOLAMINE 1MG TRANSDERMAL PATCH As Ordered ONE (07:26)
[2021-08-02] MEDS ORDERED: SCOPOLAMINE 1MG TRANSDERMAL PATCH TOP ONE (07:40)
[2021-08-02] MEDS ORDERED: PHENYLephrine 500MCG 5ML (100MCG/ML) SYRINGE As Ordered ONE (07:55)
[2021-08-02] MEDS ORDERED: GLYCOPYRROLATE INJ 0.2 MG/ML 2 ML VIAL As Ordered ONE (07:58)
[2021-08-02] MEDS ORDERED: ePHEDrine SULFATE 25 MG/5 ML(5MG/ML) SYRINGE As Ordered ONE (08:00)
[2021-08-02] MEDS ORDERED: ACETAMINOPHEN 1000MG 100ML IV BTL (OFIRMEV) (J0131 PER 10MG) As Ordered ONE (08:07)
[2021-08-02] MEDS ORDERED: LACRILUBE (AKWA TEARS) OPHTH OINT 3.5 GM As Ordered ONE (08:07)
[2021-08-02] MEDS ORDERED: HYDROmorphone HCL 2MG/ML 1ML VIAL As Ordered ONE (08:35)
[2021-08-02] MEDS ORDERED: ROXI1TAB2 PO (10:12)
[2021-08-02] MEDS ORDERED: oxyCODONE 5MG TAB PO PRN (10:35)
[2021-08-02] MEDS ORDERED: LR 1,000 ML IV SCH (10:35)
[2021-08-02] MEDS ORDERED: ONDANSETRON 4MG/2ML VIAL IV PRN (10:35)
[2021-08-02] MEDS ORDERED: fentaNYL 100 MCG/2 ML INJECTION IV PRN (10:35)
[2021-08-02 12:45] VITALS: BP 106/59
== END 2021-08-02 12:53 | disposition home or self-care (01) ==
LOC: M SDC 06:52
PROVIDERS: ATTEND Surgery
DX: N60.21 Fibroadenosis of right breast (principal); N63.10 Unspecified lump in the right breast, unspecified quadrant; N64.4 Mastodynia; F17.210 Nicotine dependence, cigarettes, uncomplicated; F90.9 Attention-deficit hyperactivity disorder, unspecified type; J30.2 Other seasonal allergic rhinitis; K21.9 Gastro-esophageal reflux disease without esophagitis; R06.09 Other forms of dyspnea; Z79.899 Other long term (current) drug therapy; Z80.9 Family history of malignant neoplasm, unspecified; Z91.048 Other nonmedicinal substance allergy status
CPT/HCPCS: 19125; 19285; 81025; 88307; J0131; J0690; J1100; J1170; J1644; J2250; J2370; J2405; J3010

== ENCOUNTER 2021-10-20 13:39 | Day surgery (SDC) | payer BC ==
[~2021-10-20] VITALS: Ht 177.8 cm; Wt 80.0 kg
[~2021-10-20 13:39] MED LIST changes: +FAMO40TA3; -HEPARIN SOD (PORCINE) 5000UNITS/ML 1ML VIAL/SYRINGE SQ ONE; +LAMO25TA4; -LIDOCAINE 1% MDV 20ML VIAL SQ PRN; -LR 1,000 ML IV ONE; +NS 1,000 ML IV ONE; +ROXI1TAB2 PO; -ceFAZolin SOD 2 GM in IV 1 EA IV ONE; +propofoL 200 MG/20 ML VIAL As Ordered ONE
[2021-10-20 16:08] VITALS: BP 106/53
== END 2021-10-20 16:10 | disposition home or self-care (01) ==
LOC: M OPP 13:39
PROVIDERS: ATTEND Internal Medicine Gastroenterology
DX: K22.89 Other specified disease of esophagus (principal); K29.50 Unspecified chronic gastritis without bleeding; R12 Heartburn; Z79.899 Other long term (current) drug therapy; Z91.048 Other nonmedicinal substance allergy status; Z80.6 Family history of leukemia; F17.210 Nicotine dependence, cigarettes, uncomplicated

== ENCOUNTER 2021-11-18 21:57 | Emergency (ER) | payer BC ==
[~2021-11-18] VITALS: Ht 177.8 cm; Wt 80.1 kg
[~2021-11-18 21:57] MED LIST changes: -NS 1,000 ML IV ONE; -propofoL 200 MG/20 ML VIAL As Ordered ONE
[2021-11-18 21:58] VITALS: BP 117/66
== END 2021-11-19 02:30 | disposition left against medical advice (07) ==
LOC: M ED 21:57
DX: Z53.21 Procedure and treatment not carried out due to patient leaving prior to being seen by health care provider (principal)

== ENCOUNTER → 2022-01-11 | Outpatient (CLI) | payer MEDICAID | LOC: M RAD 11:57 | PROVIDERS: ATTEND Family Medicine Addiction Medicine | DX: M25.561 Pain in right knee (principal) ==

== ENCOUNTER → 2022-05-05 | Outpatient (REF) | payer MEDICAID | LOC: M LAB REF 16:52 | PROVIDERS: ATTEND Nurse Practitioner Family | DX: J02.9 Acute pharyngitis, unspecified (principal) ==

== ENCOUNTER → 2022-09-06 | Outpatient (REF) | payer OTHER ==
[~2022-09-06] MED LIST changes: -PAXI30TA11 PO; +PAXI30TA12 PO
== END ==
LOC: M LAB REF 16:39
PROVIDERS: ATTEND Family Medicine Addiction Medicine
DX: Z12.4 Encounter for screening for malignant neoplasm of cervix (principal)

== ENCOUNTER → 2022-11-17 | Outpatient (REF) | payer OTHER | LOC: M LAB REF 12:25 | PROVIDERS: ATTEND Surgery | DX: L72.0 Epidermal cyst (principal) ==

== ENCOUNTER 2024-10-01 13:57 | Emergency (ER) | payer BC, OTHER ==
[~2024-10-01] VITALS: Ht 177.8 cm; Wt 93.0 kg
[~2024-10-01 13:57] MED LIST changes: +CARI-555 PO; -CARI1TAB7 PO; -CYCL5TAB PO; +CYCL5TAB4 PO; -LAMO25TA4; +LAMO25TA4 PO; +ONDA-282 PO; -ONDA4TAB6 PO
[2024-10-01 15:08] LABS: HEMOGLOBIN 13.6 g/dl (12.0-15.5); MEAN CORPUSCULAR HEMOGLOBIN 28.8 pg (27.0-33.0); MEAN CORPUSCULAR HGB CONC 33.2 g/dl (32.0-36.5); MEAN CORPUSCULAR VOLUME 86.7 fl (80.0-96.0); PLATELET COUNT, AUTOMATED 277 10^3/uL (150-450); RED BLOOD COUNT 4.73 10^6/uL (4.00-5.40); WHITE BLOOD COUNT 9.8 10^3/uL (4.0-10.0)
[2024-10-01 15:25] LABS: AMPHETAMINES LEVEL URINE NEGATIVE (NEGATIVE); BARBITURATES URINE NEGATIVE (NEGATIVE); BENZODIAZEPINES URINE NEGATIVE (NEGATIVE)
[2024-10-01 15:26] LABS: CANNABINOIDS URINE NEGATIVE (NEGATIVE); COCAINE METABOLITE URINE NEGATIVE (NEGATIVE); METHADONE URINE NEGATIVE (NEGATIVE); OPIATES URINE NEGATIVE (NEGATIVE); PHENCYCLIDINE URINE NEGATIVE (NEGATIVE)
[2024-10-01 15:27] LABS: ETHYL ALCOHOL (ETHANOL) < 0.003 % (0.000-0.010)
[2024-10-01 15:28] LABS: ALBUMIN 4.2 G/DL (3.2-5.2); ALKALINE PHOSPHATASE 100 U/L (35-104); ALT/SGPT 15 U/L (7.0-40); AST/SGOT 11 U/L (<34); BILIRUBIN,DIRECT 0.2 MG/DL (<0.4); BILIRUBIN,TOTAL 0.5 MG/DL (0.3-1.2); BLOOD UREA NITROGEN 7 MG/DL (9-23); CALCIUM LEVEL 9.7 MG/DL (8.5-10.1); CARBON DIOXIDE LEVEL 20 MMOL/L (20-31); CHLORIDE LEVEL 111 MMOL/L (98-107); CREATININE FOR GFR 0.69 MG/DL (0.55-1.30); GLOMERULAR FILTRATION RATE > 60.0 (>60); GLUCOSE, FASTING 96 MG/DL (60-100); POTASSIUM SERUM 4.2 MMOL/L (3.5-5.1); SALICYLATE LEVEL < 3.0 MG/DL (<30); SODIUM LEVEL 140 MMOL/L (136-145); TOTAL PROTEIN 7.6 G/DL (5.7-8.2)
[2024-10-01 15:32] LABS: THYROID STIMULATING HORMONE 1.456 uIU/ML (0.55-4.78)
[2024-10-01] MEDS ORDERED: VENL75CA47 PO (16:11)
[2024-10-01] MEDS ORDERED: HOME MED LIST COMPLETE! XX SCH (16:15)
[2024-10-01 19:08] VITALS: BP 111/58; TEMP 97.9; O2SAT 98
== END 2024-10-01 19:14 | disposition home or self-care (01) ==
LOC: M ED 13:57
DX: F43.0 Acute stress reaction (principal); F32.A Depression, unspecified; J30.2 Other seasonal allergic rhinitis; Z79.899 Other long term (current) drug therapy; Z91.89 Other specified personal risk factors, not elsewhere classified